=== PATIENT | female | born 1935 | race Caucasian/White ===

== ENCOUNTER → 2016-11-07 | Outpatient (CLI) | payer BC ==
[~2016-11-07] MED LIST: ACET-1256 PO; ADVIN10/60 INH; CALC500C70 PO; DMD20 PO; FLUO20CA35 PO; LISI5TAB3 PO; LORA-741 PO; MULT-513 PO; POTA20TA16 PO; PSYL55.43 PO; SIMV10TA2 PO
[2016-11-07 13:20] LABS: BLOOD UREA NITROGEN 23 mg/dl (7-18); GLUCOSE 133 mg/dl (70-99)
[2016-11-07 13:21] LABS: ALT/SGPT 22 U/L (12-78); AST/SGOT 18 U/L (15-37); BUN/CREATININE RATIO 13.6 (10-20); CALCIUM 9.2 mg/dl (8.5-10.1); CARBON DIOXIDE 30 mmol/L (21-32); CHLORIDE 103 mmol/L (98-107); CHOLESTEROL 174 mg/dl (0-200); CHOLESTEROL/HDL RATIO 2.1; HDL CHOLESTEROL 81 mg/dl; POTASSIUM 3.7 mmol/L (3.5-5.1); SODIUM 142 mmol/L (136-145)
[2016-11-07 13:25] LABS: ALB/GLOB RATIO 1.1 (0.9-2); ALKALINE PHOSPHATASE 95 U/L (45-117); TRIGLYCERIDES 159 mg/dl (0-150); VERY LOW DENSITY LIPOPROT CALC 32 mg/dl
[2016-11-07 13:48] LABS: ESTIMATED AVERAGE GLUCOSE 148 mg/dl; HA1C FLAG Normal (Normal)
== END | disposition home or self-care (01) ==
LOC: C.LABSPEC 12:20
PROVIDERS: ATTEND Internal Medicine
DX: Z00.00 Encounter for general adult medical examination without abnormal findings (principal); E11.22 Type 2 diabetes mellitus with diabetic chronic kidney disease; I12.9 Hypertensive chronic kidney disease with stage 1 through stage 4 chronic kidney disease, or unspecified chronic kidney disease; N18.4 Chronic kidney disease, stage 4 (severe); E78.5 Hyperlipidemia, unspecified

== ENCOUNTER → 2016-12-22 | Outpatient (CLI) | payer BC ==
[2016-12-22 15:45] LABS: BLOOD UREA NITROGEN 23 mg/dl (7-18); BUN/CREATININE RATIO 14.5 (10-20); CALCIUM 9.8 mg/dl (8.5-10.1); CARBON DIOXIDE 31 mmol/L (21-32); CHLORIDE 100 mmol/L (98-107); GLUCOSE 140 mg/dl (70-99); POTASSIUM 3.8 mmol/L (3.5-5.1); SODIUM 139 mmol/L (136-145)
== END | disposition home or self-care (01) ==
LOC: C.LABSPEC 15:10
PROVIDERS: ATTEND Internal Medicine
DX: N18.9 Chronic kidney disease, unspecified (principal)

== ENCOUNTER → 2017-04-27 | Outpatient (CLI) | payer BC ==
[2017-04-27 15:11] LABS: BASO % 0.5 %; BASO ABS # 0.03 K/uL (0-0.2); COMPLETE YES; EOS % 7.2 %; HEMATOCRIT 40.2 % (37-47); LYMPH % 21.4 %; LYMPH ABS # 1.25 K/uL (1.2-3.4); MEAN CELL VOLUME 91.6 fL (80-100); MEAN CORPUSCULAR HEMOGLOBIN 30.1 pg (25-34); MEAN CORPUSCULAR HGB CONC 32.8 g/dl (32-36); MEAN PLATELET VOLUME 9.4 fL (7.4-10.4); MONO % 10.8 %; NEUT % 60.1 %; PLATELET COUNT 213 K/uL (130-400); RED BLOOD COUNT 4.39 M/uL (4.2-5.4); WHITE BLOOD COUNT 5.84 K/uL (4.8-10.8)
[2017-04-27 15:19] LABS: ALT/SGPT 20 U/L (12-78); AST/SGOT 21 U/L (15-37); BLOOD UREA NITROGEN 21 mg/dl (7-18); BUN/CREATININE RATIO 14.1 (10-20); CALCIUM 9.5 mg/dl (8.5-10.1); CARBON DIOXIDE 30 mmol/L (21-32); CHLORIDE 103 mmol/L (98-107); CHOLESTEROL 162 mg/dl (0-200); GLUCOSE 137 mg/dl (70-99); POTASSIUM 3.9 mmol/L (3.5-5.1); SODIUM 139 mmol/L (136-145); TRIGLYCERIDES 136 mg/dl (0-150); VERY LOW DENSITY LIPOPROT CALC 27 mg/dl
[2017-04-27 15:22] LABS: ALB/GLOB RATIO 0.9 (0.9-2); ALKALINE PHOSPHATASE 91 U/L (45-117); CHOLESTEROL/HDL RATIO 2.5; HDL CHOLESTEROL 64 mg/dl
[2017-04-28 06:22] LABS: ESTIMATED AVERAGE GLUCOSE 148 mg/dl; HA1C FLAG Normal (Normal)
== END | disposition home or self-care (01) ==
LOC: C.LABSPEC 11:00
PROVIDERS: ATTEND Internal Medicine
DX: E11.9 Type 2 diabetes mellitus without complications (principal); I10 Essential (primary) hypertension; E78.5 Hyperlipidemia, unspecified

== ENCOUNTER → 2017-05-02 | Outpatient (CLI) | payer BC | END | disposition home or self-care (01) | LOC: C.LABSPEC 15:15 | PROVIDERS: ATTEND Internal Medicine | DX: Z12.11 Encounter for screening for malignant neoplasm of colon (principal) ==

== ENCOUNTER → 2017-06-06 | Outpatient (CLI) | payer BC ==
--- NOTE | 2017-06-07 07:57 | MAMMOGRAPHY REPORT ---
BILATERAL DIGITAL SCREENING MAMMOGRAM TOMOSYNTHESIS WITH CAD: 06/06/2017 CLINICAL HISTORY: Routine screening. Patient has no complaints. TECHNIQUE: Breast tomosynthesis in addition to standard 2D mammography was performed. Current study was also evaluated with a Computer Aided Detection (CAD) system. COMPARISON: Comparison is made to exams dated: 06/01/2016 mammogram, 02/11/2014 mammogram, 02/03/2014 m ammogram, 01/28/2013 mammogram, 01/23/2012 mammogram, and 12/16/2010 mammogram - [facility]. BREAST COMPOSITION: The tissue of both breasts is heterogeneously dense, which may obscure small mas ses. FINDINGS: There is a stable circumscribed 12 mm mass in the anterior right breast, previously docume nted to represent a simple cyst on ultrasound. A second stable oval mass is seen in the 6:00 posteri or right breast. There are diffuse bilateral benign rim and round microcalcifications. Mild vascula r calcifications in both breasts. No new suspicious mass, architectural distortion or cluster of consuelo rocalcifications is seen. IMPRESSION: ACR BI-RADS CATEGORY 1: NEGATIVE There is no mammographic evidence of malignancy. A 1 year screening mammogram is recommended. The pa tient will receive written notification of the results. Approximately 10% of breast cancers are not detected with mammography. A negative mammographic report should not delay biopsy if a clinically suggestive mass is present. Bety Dixon M.D. ay/:06/06/2017 15:55:48 Systems Engineering Manager: Leonie CHAVARRIA(R)(M), [facility] letter sent: Normal 1/2 BI-RADS Code: ACR BI-RADS Category 1: Negative
== END | disposition home or self-care (01) ==
LOC: C.MAMM 09:53
PROVIDERS: ATTEND Internal Medicine
DX: Z12.31 Encounter for screening mammogram for malignant neoplasm of breast (principal)

== ENCOUNTER 2017-10-25 13:43 | Observation (INO) | payer BC ==
[~2017-10-25] VITALS: Ht 160 cm; Wt 74.6 kg
[2017-10-25] MEDS ORDERED: XYLOCAINE 1%/SOD BICARB 20 ML VIAL INFIL ONE (14:30)
[2017-10-25] MEDS ORDERED: DMD20 PO (14:40)
[2017-10-25] MEDS ORDERED: ADVIN50/60 INH (14:40)
[2017-10-25] MEDS ORDERED: SIMV-151 PO (14:40)
[2017-10-25] MEDS ORDERED: POTA20TA13 PO (14:40)
[2017-10-25] MEDS ORDERED: LISI-729 PO (14:40)
[2017-10-25] MEDS ORDERED: IPRA1AER2 INH (14:40)
[2017-10-25] MEDS ORDERED: CZR25 PO (14:40)
[2017-10-25 15:08] LABS: BASO % 0.2 %; BASO ABS # 0.03 K/uL (0-0.2); EOS % 0.8 %; EOS ABS # 0.13 K/uL (0-0.5); HEMATOCRIT 41.5 % (37-47); HEMOGLOBIN 13.8 g/dL (12.0-16.0); IG# 0.03 K/uL (0.00-0.02); LYMPH % 7.3 %; LYMPH ABS # 1.17 K/uL (1.2-3.4); MEAN CELL VOLUME 94.1 fL (80-100); MEAN CORPUSCULAR HEMOGLOBIN 31.3 pg (25-34); MEAN CORPUSCULAR HGB CONC 33.3 g/dl (32-36); MEAN PLATELET VOLUME 9.4 fL (7.4-10.4); NEUT % 86.5 %; NEUT ABS # 13.85 K/uL (1.4-6.5); PLATELET COUNT 206 K/uL (130-400); RED CELL DISTRIBUTION WIDTH CV 12.6 % (11.5-14.5); RED CELL DISTRIBUTION WIDTH SD 43.6 fL (36.4-46.3); WHITE BLOOD COUNT 16.01 K/uL (4.8-10.8)
[2017-10-25 15:28] LABS: ALBUMIN 3.8 gm/dl (3.4-5.0); CALCIUM 9.7 mg/dl (8.5-10.1); CREATININE 1.48 mg/dl (0.60-1.20)
--- NOTE | 2017-10-25 15:30 | DIAGNOSTIC IMAGING REPORT ---
CT HEAD WITHOUT CONTRAST (CT) CLINICAL HISTORY: Head trauma. Posttraumatic amnesia. COMPARISON STUDY: 05/08/2015 TECHNIQUE: Axial CT of the brain is performed from the vertex to the skull base. IV contrast was not administered for this examination. A dose lowering technique was utilized adhering to the principles of ALARA. CT DOSE: 978.44 mGycm FINDINGS: No intra or extra-axial mass lesions are visualized. There is no CT evidence of acute cortical infarction. There is no evidence of midline shift. There is no acute hemorrhage. No calvarial fractures are visualized. There are moderate white matter hypodensities likely on a small vessel basis. There is no evidence of pathologic ventricular dilatation. There is no evidence of acute sinusitis. There is a left parietal vertex scalp laceration. IMPRESSION: No acute intracranial findings Electronically signed by: Nahun Arreola M.D. 10/25/2017 3:29 PM Dictated Date/Time: 10/25/2017 3:28 PM
--- NOTE | 2017-10-25 15:33 | DIAGNOSTIC IMAGING REPORT ---
CT OF THE CERVICAL SPINE CLINICAL HISTORY: Neck pain status post trauma COMPARISON STUDY: No previous studies for comparison. CT DOSE: 422.46 mGycm TECHNIQUE: CT scan of the cervical spine was performed from the skull base to the thoracic inlet. Images are reviewed in the axial, sagittal, and coronal planes. IV contrast was not administered for this examination. A dose lowering technique was utilized adhering to the principles of ALARA. FINDINGS: The visualized portions of the lung apices reveal no evidence of pneumothorax. There is apical emphysema The prevertebral soft tissues are normal. No fractures or subluxations are visualized. There are advanced multilevel degenerative changes. Slight widening of the C2-3 disc, likely is developmental. IMPRESSION: 1. Slight widening of the C2-3 disc, a finding which is likely developmental 2. Advanced multilevel degenerative change 3. No acute fractures or traumatic subluxations are visualized Electronically signed by: Nahun Arreola M.D. 10/25/2017 3:32 PM Dictated Date/Time: 10/25/2017 3:29 PM
[2017-10-25 15:36] LABS: TOTAL PROTEIN 7.9 gm/dl (6.4-8.2)
--- NOTE | 2017-10-25 16:00 | DIAGNOSTIC IMAGING REPORT ---
R HIP UNILATERAL 2 VIEWS HISTORY: 82 years-old Female fall acute right hip pain status post fall COMPARISON: Pelvis radiograph 03/11/2013 TECHNIQUE: 2 views of the right hip FINDINGS: Right hip arthroplasty noted without evidence of hardware complication or malalignment. No acute fracture or subluxation. The imaged right hemipelvis appears intact. Degenerative changes are seen within the right SI joint and pubic symphysis. Soft tissues are unremarkable. IMPRESSION: 1. No acute fracture or subluxation. 2. Right hip arthroplasty noted without evidence of hardware complication. The above report was generated using voice recognition software. It may contain grammatical, syntax or spelling errors. Electronically signed by: Farooq Story M.D. 10/25/2017 3:59 PM Dictated Date/Time: 10/25/2017 3:58 PM
--- NOTE | 2017-10-25 16:02 | DIAGNOSTIC IMAGING REPORT ---
R WRIST MIN 3 VIEWS ROUTINE HISTORY: 82 years-old Female fall acute right wrist pain status post fall. Associated laceration. COMPARISON: None available TECHNIQUE: 4 views of the right wrist FINDINGS: The bones appear mildly demineralized. Severe first carpometacarpal osteoarthritis. Mild radiocarpal and triscaphe osteoarthritis. No acute fracture or subluxation. No opaque foreign body. Distal radius and ulna appear intact. IMPRESSION: 1. Degenerative changes about the wrist as above without acute fracture or subluxation. 2. Mildly demineralized appearance of the bones. The above report was generated using voice recognition software. It may contain grammatical, syntax or spelling errors. Electronically signed by: Farooq Story M.D. 10/25/2017 4:01 PM Dictated Date/Time: 10/25/2017 3:59 PM
--- NOTE | 2017-10-25 17:38 | EMERGENCY ROOM VISIT NOTE ---
ED Visit Note First contact with patient: 13:49 Chief Complaint: Head injury. History of Present Illness: Ms. Mcguire is an 82-year-old white female who ambulates into the ED accompanied by her son complaining of a laceration and possible head injury. Patient reports approximately one hour ago she was going down the stairs at her home using a chair left. Patient reports approximately snf down the stairs she reports somehow she fell out of the chair, down the stairs and landed on a wooden floor. She reports she has no recollection of the events. She reports she only remembers waking up on the floor. She reports she is unsure show a loss of consciousness but once again reports she does not remember when the event occurred. Currently she is complaining of a laceration on the occipital scalp and posterior right hand and some mild tenderness in the right hip. She does not describe these pains or rates her discomfort. She has not identified any aggravating or alleviating factors related to the symptoms. She has not taken any medications for the symptoms prior to arrival at the hospital. She denies any associated symptoms including headache, dizziness, lightheadedness, visual changes, hearing changes, difficulty speaking, difficulty swallowing, difficulty ambulating/coordinating body movements, neck pain, thoracic and lumbar back pain, chest pain, shortness of breath, abdominal pain, nausea, vomiting, upper extremity weakness/numbness/tingling. Review of Systems: As noted above in History of Present Illness; all body systems were reviewed the patient and found to be negative unless noted above otherwise. Past Medical History: Asthma, bronchitis, hypertension, unspecified hip surgeries. Current Medications: Medications Dose Route/Sig Max Daily Dose Days Date Category Zestril (Lisinopril) 5 Mg Tab 5 Mg PO DAILY 10/25/17 Reported Combivent Respimat (Ipratropium-Albuterol) 1 Aer Aer 1 Puff INH UD 10/25/17 Reported Torsemide 20 Mg Tab 1.5 Tab PO DAILY 10/25/17 Reported Potassium Chloride Er (Potassium Chloride Microencaps) 20 Meq Tab 1 Tab PO DAILY 10/25/17 Reported Losartan Potassium 25 Mg Tab 1 Tab PO DAILY 10/25/17 Reported Simvastatin 20 Mg Tab 1 Tab PO DAILY 10/25/17 Reported Advair Diskus 500/50 60 Dose (Fluticasone Prop/Salmeterol) 1 Ea Aerp 1 Puff INH BID 10/25/17 Reported Ativan (Lorazepam) 0.5 Mg Tab 0.5 Mg PO Q6H PRN 05/08/15 Reported Tylenol (Acetaminophen) 500 Mg Tab 500-1,000 Mg PO HS PRN 02/20/13 Reported Os-Efren 500 Plus D (Calcium/Vitamin D) Tab 1 Tab PO DAILY 02/20/13 Reported Mvi With Minerals (Multivitamins/Minerals) Tab 1 Tab PO DAILY 02/20/13 Reported Prozac (Fluoxetine HCl) 20 Mg Cap 20 Mg PO QAM 03/07/10 Reported Allergies to Medications: Patient denies. Social History: Patient is not employed; she lives by herself and feels safe in her home environment; she denies tobacco and alcohol use. Tetanus Immunization Status: Patient is unsure. Physical Examination: Vital Signs: Date Time Temp Pulse Resp B/P (MAP) Pulse Ox O2 Delivery O2 Flow Rate FiO2 10/25/17 16:20 36.2 82 16 163/98 97 Room Air 10/25/17 13:45 36.2 85 16 163/100 97 Room Air 10/25/17 13:45 17 GENERAL: 82-year-old female in mild distress due to symptoms, nontoxic-appearing , afebrile and hemodynamically stable. NEUROLOGICAL: Awake, alert and oriented to person, place and time. Answering questions appropriately and following commands. Normal gait. Good hand eye coordination. Cranial nerves II-12 grossly intact. Romberg test negative. Good hand eye coordination. No focal motor or sensory deficits. Normal rapid all movements of the hands and fingers. Long-term memory questionable short- term memory SKIN: Warm, dry and pink. Occipital Scalp: 4.6 cm full-thickness laceration with no active bleeding. Right Posterior Wrist: 3.2 cm crescent-shaped skin tear. No active bleeding. HEENT: Atraumatic and normocephalic. Soft tissue injury as noted above. Skull : No bony deformity, bony crepitus or ecchymosis. Mild tenderness in the area of her laceration. No raccoon's eyes or daly signs. No drainage in the ears of the nostril; no hemotympanum. Face: No bony tenderness, ecchymosis or bony crepitus. PERRLA. EOMI without nystagmus. Airway patent. Speech normal and clear. Trachea midline. No jugular venous distention. BACK: No tenderness over the bony cervical, thoracic and lumbar spine. Mild tenderness in the paraspinous muscles just left of the spine without palpable spasm. Full range of motion of the cervical spine. No CVA tenderness. THORAX: Lungs sounds are clear to auscultation and equal bilaterally with symmetrical chest wall. No crepitus, tenderness, subcutaneous air or deformities noted. HEART: Regular rate and rhythm. No gallops, rubs or murmurs are appreciated. ABDOMEN: Flat, soft and nontender. Positive bowel sounds in all quadrants. No guarding, rigidity or organomegaly. EXTREMITIES: Moves all extremities well on command and with purpose. All distal neurovascular statuses are intact and equal bilaterally. She has mild tenderness over her skin tear in the right upper extremity. I don't appreciate any bony deformity, bony crepitus, swelling or ecchymosis. She does have full range of motion against resistance in the wrist. No tenderness in the shoulders , upper arms, elbows, forearms, wrists or hands. Mild tenderness in the right hip over the greater trochanter area without bony deformity or crepitus. There is no shortening or malrotation. No tenderness throughout the thighs, knees, lower legs, ankles or feet. ED Course: Patient is assessed as noted above. Patient's medication list was reviewed. Laboratory Testing: Test 10/25/17 14:59 10/25/17 15:59 Range/Units White Blood Count 16.01 4.8-10.8 K/uL Red Blood Count 4.41 4.2-5.4 M/uL Hemoglobin 13.8 12.0-16.0 g/dL Hematocrit 41.5 37-47 % Mean Corpuscular Volume 94.1 80-100 fL Mean Corpuscular Hemoglobin 31.3 25-34 pg Mean Corpuscular Hemoglobin Concent 33.3 32-36 g/dl Platelet Count 206 130-400 K/uL Mean Platelet Volume 9.4 7.4-10.4 fL Neutrophils (%) (Auto) 86.5 % Lymphocytes (%) (Auto) 7.3 % Monocytes (%) (Auto) 5.0 % Eosinophils (%) (Auto) 0.8 % Basophils (%) (Auto) 0.2 % Neutrophils # (Auto) 13.85 1.4-6.5 K/uL Lymphocytes # (Auto) 1.17 1.2-3.4 K/uL Monocytes # (Auto) 0.80 0.11-0.59 K/uL Eosinophils # (Auto) 0.13 0-0.5 K/uL Basophils # (Auto) 0.03 0-0.2 K/uL RDW Standard Deviation 43.6 36.4-46.3 fL RDW Coefficient of Variation 12.6 11.5-14.5 % Immature Granulocyte % (Auto) 0.2 % Immature Granulocyte # (Auto) 0.03 0.00-0.02 K/uL Sodium Level 137 136-145 mmol/L Potassium Level 4.0 3.5-5.1 mmol/L Chloride Level 100 98-107 mmol/L Carbon Dioxide Level 32 21-32 mmol/L Anion Gap 5.0 3-11 mmol/L Blood Urea Nitrogen 23 7-18 mg/dl Creatinine 1.48 0.60-1.20 mg/dl Est Creatinine Clear Calc Drug Dose 27.1 ml/min Estimated GFR () 37.3 Estimated GFR (Non- 32.2 BUN/Creatinine Ratio 15.3 10-20 Random Glucose 150 70-99 mg/dl Calcium Level 9.7 8.5-10.1 mg/dl Total Bilirubin 0.5 0.2-1 mg/dl Direct Bilirubin 0.1 0-0.2 mg/dl Aspartate Amino Transf (AST/SGOT) 20 15-37 U/L Alanine Aminotransferase (ALT/SGPT) 22 12-78 U/L Alkaline Phosphatase 109 45-117 U/L Troponin I 0.052 0-0.045 ng/ml Total Protein 7.9 6.4-8.2 gm/dl Albumin 3.8 3.4-5.0 gm/dl Urine Color YELLOW Urine Appearance CLEAR CLEAR Urine pH 5.5 4.5-7.5 Urine Specific [place] 1.015 1.000-1.030 Urine Protein NEG NEG Urine Glucose (UA) NEG NEG Urine Ketones NEG NEG Urine Occult Blood NEG NEG Urine Nitrite NEG NEG Urine Bilirubin NEG NEG Urine Urobilinogen NEG NEG Urine Leukocyte Esterase MODERATE NEG Urine WBC (Auto) >30 0-5 /hpf Urine RBC (Auto) 0-4 0-4 /hpf Urine Hyaline Casts (Auto) 10-30 0-5 /lpf Urine Epithelial Cells (Auto) 10-20 0-5 /lpf Urine Bacteria (Auto) NEG NEG EKG: Was read by myself and reviewed with Dr. James; shows normal sinus rhythm with a ventricular rate of 63 bpm. Normal axis and intervals. No acute changes indicating ischemia, injury infarction. This was compared to a previous from 2015 in no acute changes were noted. Head CT: Was reviewed by myself and read by the radiologist showing no acute intracranial findings. Cervical Spine CT: Was reviewed by myself and read by the radiologist and shows slight widening of C2-C3 disc which likely is developmental. Advanced multilevel degenerative changes. No acute fractures or traumatic subluxations. Right Hip X-Rays: Were read by myself and the radiologist showing no acute fractures or subluxations. Right hip arthroplasty noted without evidence of hardware complication. Right Wrist X-Rays: Were read by myself and the radiologist showing no acute fractures or subluxations. Degenerative changes and minimal demineralization. Patient was offered pain medication and refused. Wound Repair: Occipital Scalp Laceration Complexity: Basic: Verbal consent was obtained after the risks and benefits were explained. The skin was prepped with betadine and a sterile field set. Wound edges of the wound was anesthetized with 5.2 ml buffered 1% lidocaine. The wound was explored for foreign bodies and none found. Copious irrigation was performed using sterile saline. With direct pressure the bleeding subsided. Debridement was not performed. The wound edges were approximated using 10 brian. Hemostasis and excellent approximation was achieved. No complications and the patient tolerated the procedure well. Right Wrist Skin Tear Complexity: Basic: Wound edges of the wound was anesthetized with 5.2 ml buffered 1% lidocaine. The wound was explored for foreign bodies and none found. With direct pressure the bleeding subsided. Debridement was not performed. The wound edges were approximated using Steri-Strips. Hemostasis and excellent approximation was achieved. No complications and the patient tolerated the procedure well. Patient was reassessed multiple times during her stay in the emergency department. Patient's case was reviewed with Dr. James; in apparently assessed the patient we agreed on diagnostic approach, treatment, disposition and plan. Patient's case was reviewed with the case finisher and hospitalist for observation/admission because of her elevated troponin. Patient and son were educated about today's findings. Clinical Impression: Fall. Elevated troponin. Amnestic to event. Closed head injury. Decision-Making: Initially my differential diagnosis I considered skull fracture , closed head injury, concussion, arrhythmia, hypoglycemia, urinary tract infection and other causes. Disposition and plan: Patient be brought in the hospital for observation/ admission by the hospitalist; please see their notes and orders for final disposition and plan.
[2017-10-25] MEDS ORDERED: LORAZEPAM 0.5 MG TAB PO PRN (17:45)
[2017-10-25] MEDS ORDERED: MAGNESIUM HYDROXIDE SUSP 30 ML UDC PO PRN (17:45)
[2017-10-25] MEDS ORDERED: ALUMINUM/MAGNESIUM/SIMETH (MAALOX MAX) 30 ML UDC PO PRN (17:45)
[2017-10-25] MEDS ORDERED: POLYETHYLENE (MIRALAX) 17 GM PACK PO PRN (17:45)
[2017-10-25] MEDS ORDERED: ONDANSETRON INJ 2 MG/ML 2 ML VIAL IV PRN (17:45)
--- NOTE | 2017-10-25 17:52 | History and Physical ---
History & Physical Date & Time of Service: Oct 25, 2017 at 17:44 Chief Complaint: Laceration From Fall Primary Care Physician: Chito Dunbar M.D. History of Present Illness Source: patient, family (Son) Ms. Mcguire is an 82 y/o female with PMHx of HTN, Asthma, and CKD Stage III who presents to the ED for syncope. Patient states she has noticed not feeling well over the past few days, mostly noting she just felt more fatigued than normal. Today, she was on her left chair going downstairs and sustained a fall resulting in right wrist pain and a laceration to the left side of her posterior head. Patient reports she does not remember even getting in her chair left. She reports only four stairs to travel on her lift chair. The only thing she can recall is laying on the stairs and feeling pain in her head, she placed her hand on her head and realized she was bleeding. She denies any previous episodes of syncope. She denies any known cardiac history or arrhythmia. She denies any focal neurological deficits. She does note chronic left shoulder limitations they have not changed after this fall. She states she has never noticed issues with dizziness when changing positions. She is on antihypertensives and a diuretic which she reports taking this a.m. She denies any recent medication changes. She takes her diuretic for lower extremity edema and denies any history of heart failure. On arrival to the ED, she had numerous imaging complete without acute findings. Cervical spine does show slight widening of C2-C3 which is deemed to be developmental. She had her head laceration stapled with 10 brian. Laceration is well approximated without active bleeding and all brian easily identified. She has presence of leukocytosis which may be possibly reactive. Her creatinine is elevated at 1.48 with baseline appearing to be 1.4-1.6. Troponin is mildly elevated at 0.052 which may be related to her CKD versus demand ischemia. EKG with NSR and no ischemic findings and she denies any chest pain or shortness of breath. Past Medical/Surgical History 1. Asthma 2. HTN 3. CKD Stage III Family History Cancer Diabetes mellitus Gallbladder disease Hypertension Social History Smoking Status: Former Smoker Drug Use: none Marital Status: Housing status: lives with family Occupational Status: retired Immunizations History of Influenza Vaccine: Yes History of Tetanus Vaccine?: No History of Pneumococcal: No History of Hepatitis B Vaccine: No Multi-Drug Resistant Organisms History of MDRO: No Allergies Coded Allergies: No Known Allergies (Unverified , 10/25/17) Home Medications Scheduled Calcium/Vitamin D (Os-Efren 500 Plus D), 1 TAB PO DAILY Fluoxetine (Prozac), 20 MG PO QAM Fluticasone Prop/Salmeterol (Advair Diskus 500/50 60 Dose), 1 PUFF INH BID Ipratropium-Albuterol (Combivent Respimat), 1 PUFF INH UD Losartan Potassium (Losartan Potassium), 1 TAB PO DAILY Multivitamins/Minerals (Mvi With Minerals), 1 TAB PO DAILY Potassium Chloride Microencaps (Potassium Chloride Er), 1 TAB PO DAILY Simvastatin (Simvastatin), 1 TAB PO DAILY Torsemide (Torsemide), 1.5 TAB PO DAILY Scheduled PRN Acetaminophen (Tylenol), 500-1,000 MG PO HS PRN for sleep/pain Lorazepam (Ativan), 0.5 MG PO Q6H PRN for anxiety Review of Systems Constitutional: + fatigue, + problem reported (Denies headache), No fever, No chills Eyes: No worsening of vision, No eye pain Respiratory: + cough (chronic - unchanged), + sputum (intermittent - chronic), No wheezing, No shortness of breath Cardiovascular: No chest pain, No orthopnea, No palpitations Abdomen: No pain, No nausea, No vomiting, No diarrhea, No constipation Musculoskeletal: + swelling (chronic - b/l lower extremities), No calf pain Genitourinary - Female: + dysuria (one episode approx 3 days ago - resolved), No urinary frequency, No hematuria Neurologic: No numbness/tingling Hematologic / Lymphatic: No abnormal bleeding/bruising Integumentary: No rash Physical Exam Vital Signs Date Time Temp Pulse Resp B/P (MAP) Pulse Ox O2 Delivery O2 Flow Rate FiO2 10/25/17 16:20 36.2 82 16 163/98 97 Room Air 10/25/17 13:45 36.2 85 16 163/100 97 Room Air 10/25/17 13:45 17 General Appearance: WD/WN, no apparent distress Head: normocephalic, + evidence of trama (full thickness laceration with 10 sutures; well approximated and brian well visualized; no active bleeding no obvious swelling/hematoma) Eyes: PERRL, EOMI, sclerae normal ENT: hearing grossly normal Neck: supple, no JVD, trachea midline Respiratory/Chest: lungs clear, normal breath sounds, no respiratory distress, no accessory muscle use Cardiovascular: regular rate, rhythm, no gallop, no murmur Abdomen/GI: normal bowel sounds, non tender, soft Extremities/Musculoskelatal: + swelling (nonpitting edema b/l legs - lymphedema appearance) Neurologic/Psych: alert, oriented x 3 Skin: normal color Diagnostics Laboratory Results Results Past 24 Hours Test 10/25/17 14:59 10/25/17 15:59 Range/Units White Blood Count 16.01 4.8-10.8 K/uL Red Blood Count 4.41 4.2-5.4 M/uL Hemoglobin 13.8 12.0-16.0 g/dL Hematocrit 41.5 37-47 % Mean Corpuscular Volume 94.1 80-100 fL Mean Corpuscular Hemoglobin 31.3 25-34 pg Mean Corpuscular Hemoglobin Concent 33.3 32-36 g/dl Platelet Count 206 130-400 K/uL Mean Platelet Volume 9.4 7.4-10.4 fL Neutrophils (%) (Auto) 86.5 % Lymphocytes (%) (Auto) 7.3 % Monocytes (%) (Auto) 5.0 % Eosinophils (%) (Auto) 0.8 % Basophils (%) (Auto) 0.2 % Neutrophils # (Auto) 13.85 1.4-6.5 K/uL Lymphocytes # (Auto) 1.17 1.2-3.4 K/uL Monocytes # (Auto) 0.80 0.11-0.59 K/uL Eosinophils # (Auto) 0.13 0-0.5 K/uL Basophils # (Auto) 0.03 0-0.2 K/uL RDW Standard Deviation 43.6 36.4-46.3 fL RDW Coefficient of Variation 12.6 11.5-14.5 % Immature Granulocyte % (Auto) 0.2 % Immature Granulocyte # (Auto) 0.03 0.00-0.02 K/uL Sodium Level 137 136-145 mmol/L Potassium Level 4.0 3.5-5.1 mmol/L Chloride Level 100 98-107 mmol/L Carbon Dioxide Level 32 21-32 mmol/L Anion Gap 5.0 3-11 mmol/L Blood Urea Nitrogen 23 7-18 mg/dl Creatinine 1.48 0.60-1.20 mg/dl Est Creatinine Clear Calc Drug Dose 27.1 ml/min Estimated GFR () 37.3 Estimated GFR (Non- 32.2 BUN/Creatinine Ratio 15.3 10-20 Random Glucose 150 70-99 mg/dl Calcium Level 9.7 8.5-10.1 mg/dl Total Bilirubin 0.5 0.2-1 mg/dl Direct Bilirubin 0.1 0-0.2 mg/dl Aspartate Amino Transf (AST/SGOT) 20 15-37 U/L Alanine Aminotransferase (ALT/SGPT) 22 12-78 U/L Alkaline Phosphatase 109 45-117 U/L Troponin I 0.052 0-0.045 ng/ml Total Protein 7.9 6.4-8.2 gm/dl Albumin 3.8 3.4-5.0 gm/dl Urine Color YELLOW Urine Appearance CLEAR CLEAR Urine pH 5.5 4.5-7.5 Urine Specific [place] 1.015 1.000-1.030 Urine Protein NEG NEG Urine Glucose (UA) NEG NEG Urine Ketones NEG NEG Urine Occult Blood NEG NEG Urine Nitrite NEG NEG Urine Bilirubin NEG NEG Urine Urobilinogen NEG NEG Urine Leukocyte Esterase MODERATE NEG Urine WBC (Auto) >30 0-5 /hpf Urine RBC (Auto) 0-4 0-4 /hpf Urine Hyaline Casts (Auto) 10-30 0-5 /lpf Urine Epithelial Cells (Auto) 10-20 0-5 /lpf Urine Bacteria (Auto) NEG NEG Diagnostic Radiology R WRIST MIN 3 VIEWS ROUTINE FINDINGS: The bones appear mildly demineralized. Severe first carpometacarpal osteoarthritis. Mild radiocarpal and triscaphe osteoarthritis. No acute fracture or subluxation. No opaque foreign body. Distal radius and ulna appear intact. IMPRESSION: 1. Degenerative changes about the wrist as above without acute fracture or subluxation. 2. Mildly demineralized appearance of the bones. CT OF THE CERVICAL SPINE FINDINGS: The visualized portions of the lung apices reveal no evidence of pneumothorax. There is apical emphysema The prevertebral soft tissues are normal. No fractures or subluxations are visualized. There are advanced multilevel degenerative changes. Slight widening of the C2-3 disc, likely is developmental. IMPRESSION: 1. Slight widening of the C2-3 disc, a finding which is likely developmental 2. Advanced multilevel degenerative change 3. No acute fractures or traumatic subluxations are visualized R HIP UNILATERAL 2 VIEWS FINDINGS: Right hip arthroplasty noted without evidence of hardware complication or malalignment. No acute fracture or subluxation. The imaged right hemipelvis appears intact. Degenerative changes are seen within the right SI joint and pubic symphysis. Soft tissues are unremarkable. IMPRESSION: 1. No acute fracture or subluxation. 2. Right hip arthroplasty noted without evidence of hardware complication. CT HEAD WITHOUT CONTRAST (CT) FINDINGS: No intra or extra-axial mass lesions are visualized. There is no CT evidence of acute cortical infarction. There is no evidence of midline shift. There is no acute hemorrhage. No calvarial fractures are visualized. There are moderate white matter hypodensities likely on a small vessel basis. There is no evidence of pathologic ventricular dilatation. There is no evidence of acute sinusitis. There is a left parietal vertex scalp laceration. IMPRESSION: No acute intracranial findings EKG Normal sinus rhythm Normal ECG When compared with ECG of 08-MAY-2015 10:54, No significant changes Confirmed by Heriberto Morillo ([id number]) on 10/25/2017 5:17:34 PM Impression Assessment and Plan Ms. Mcguire is an 82 y/o female with PMHx of HTN, Asthma, and CKD Stage III who presents to the ED for syncope. Syncope and Collapse: - Uncertain if she had syncope resulting in her fall versus a fall resulting in LOC. Patient does not even remember sitting in her lift chair - Differential includes arrhythmia, mechanical fall with LOC, vasovagal, dehydration, versus other etiology - Will gently hydrated with NSS at 75 mL/hour - will monitor fluid status and hold her diuretic - she states this is used for her lower extremity edema which appears to be largely lymphedema - Continue rhythm monitoring and trend cardiac enzymes - first troponin is mildly elevated which may be related to her CKD versus demand - no chest pain or shortness of breath and EKG largely unremarkable - Obtain echo and carotid ultrasound Head Laceration and R Wrist Abrasion: - 10 brian easily visualized to left posterior scalp with good approximation and no active bleeding; crescent-shaped skin tear of the right wrist with dressing in place that is C/D/I Asthma without Exacerbation: - Continue Combivent and Advair HTN and HLD: - Losartan 25 mg daily and simvastatin 20 g daily CKD Stage III: - Baseline appears to be 1.4-1.6 - continue to monitor and avoid nephrotoxic agents - However will continue her losartan as her creatinine is at baseline and she is hypertensive DVT Prophylaxis: SCDs Code Status: FULL RESUSCITATION Disposition: PT/OT evaluations I personally interviewed and examined the patient. I agree with history of present illness and physical exam mentioned above, I also performed my own history taking and examination. Past medical history and review of system has been obtained by myself I reviewed all pertinent labs and studies Reviewed current medications I discussed and formulated of the assessment and plan mentioned above. Please refer to the Summary mentioned below. 82 year old female with past medical history of chronic kidney disease stage III currently at baseline creatinine, asthma and hypertension presented to the ED with an episode of syncope. Patient does not remember how she past out she woke up and found herself at the bottom of the stairs Left was blood in her head. She required a couple of stitches, will CT scan head and cervical spine and x-ray hip and wrist were negative for any fracture. Patient will be admitted on telemetry to rule out any arrhythmia, will have 2-D echo ordered and carotid ultrasound. Also patient will have physical therapy and nutritional therapy. General Appearance: not in acute distress Eyes: normal Sclerae, extraocular muscle intact ENT: hearing grossly normal Neck: supple Respiratory/Chest: normal air entry especially bilateral ,no respiratory distress, no accessory muscle use Cardiovascular: regular rate, rhythm, no murmur Abdomen: non tender, soft, no masses Extremities: no edema Neurologic/Psychiatric: Awake alert oriented times place and person moves all extremities sensation intact cranial nerves II-12 appear to be intact Skin: normal color, warm/dry, no rash Maya Dale MD, [facility] hospitalist group Level of Care Telemetry Resuscitation Status FULL RESUSCITATION VTE Prophylaxis VTE Risk Assessment Done? Y/N: Yes Risk Level: Moderate Given or contraindicated: SCD's
[2017-10-25] MEDS ORDERED: IV FLUIDS COMPLETED PRN (19:45)
[2017-10-25] MEDS ORDERED: IPRATROPIUM BROMIDE/ALBUTEROL respimat INH INH PRN (21:00)
[2017-10-25] MEDS: FLUTICASONE/SALMETEROL (ADVAIR) 500/50 INH 14 PUFF INH SCH (21:00)
[2017-10-25] MEDS ORDERED: IPRATROPIUM BROMIDE/ALBUTEROL respimat INH INH SCH (21:00)
[2017-10-25] MEDS: SODIUM CHLORIDE 0.9% 1000ML 1,000 ML IV SCH (21:21)
[2017-10-25 22:26] VITALS: BP 182/68; PULSE 65; TEMP 37.3; O2SAT 95; Ht 160 cm; Wt 74.6 kg
[2017-10-26] VITALS (8 sets, daily range): BP systolic 129–194; BP diastolic 67–99; PULSE 62–84; TEMP 36.6–36.9; O2SAT 92–97
[2017-10-26 03:48] LABS: ALBUMIN 3.1 gm/dl (3.4-5.0); CALCIUM 8.9 mg/dl (8.5-10.1); CREATININE 1.35 mg/dl (0.60-1.20); POTASSIUM 3.7 mmol/L (3.5-5.1)
[2017-10-26 03:53] LABS: TOTAL PROTEIN 6.6 gm/dl (6.4-8.2)
[2017-10-26 07:54] LABS: BASO % 0.8 %; BASO ABS # 0.05 K/uL (0-0.2); EOS % 2.1 %; EOS ABS # 0.13 K/uL (0-0.5); HEMATOCRIT 37.1 % (37-47); HEMOGLOBIN 12.1 g/dL (12.0-16.0); IG# 0.01 K/uL (0.00-0.02); LYMPH % 26.8 %; LYMPH ABS # 1.69 K/uL (1.2-3.4); MEAN CORPUSCULAR HEMOGLOBIN 30.3 pg (25-34); MEAN CORPUSCULAR HGB CONC 32.6 g/dl (32-36); MEAN PLATELET VOLUME 9.3 fL (7.4-10.4); MONO ABS # 0.76 K/uL (0.11-0.59); NEUT % 58.1 %; NEUT ABS # 3.67 K/uL (1.4-6.5); PLATELET COUNT 199 K/uL (130-400); RED CELL DISTRIBUTION WIDTH CV 12.5 % (11.5-14.5); RED CELL DISTRIBUTION WIDTH SD 42.4 fL (36.4-46.3); WHITE BLOOD COUNT 6.31 K/uL (4.8-10.8)
--- NOTE | 2017-10-26 08:13 | DIAGNOSTIC IMAGING REPORT ---
CAROTID DOPPLER NECK ART HISTORY: Mental status change Syncope COMPARISON: None. TECHNIQUE: Real-time, grayscale, and color Doppler sonography of the carotid arteries was performed. Imaging reviewed in the transverse and longitudinal planes. All measurements were calculated based on NASCET criteria. FINDINGS: Antegrade flow is seen in the bilateral vertebral arteries. The brachial pressures are hemodynamically similar. Moderate plaque formation bilaterally The peak systolic velocity within the right ICA is 77. The right systolic ratio is 0.7. The peak systolic velocity within the left ICA is E3. The left systolic ratio is 1.0. IMPRESSION: No hemodynamically significant stenosis seen within the carotid arteries. Moderate plaque formation The above report was generated using voice recognition software. It may contain grammatical, syntax or spelling errors. Electronically signed by: Arben Aldana M.D. 10/26/2017 8:11 AM Dictated Date/Time: 10/26/2017 8:10 AM
[2017-10-26] MEDS: SIMVASTATIN 20 MG TAB PO SCH (08:54)
[2017-10-26] MEDS: POTASSIUM CHLORIDE 20 MEQ TABCR PO SCH (08:54)
[2017-10-26] MEDS: FLUOXETINE HCL 20 MG CAP PO SCH (08:55)
[2017-10-26] MEDS: CEROVITE ADV FORMULA TAB PO SCH (08:55)
[2017-10-26] MEDS: FLUTICASONE/SALMETEROL (ADVAIR) 500/50 INH 14 PUFF INH SCH ×2 (08:55→20:55)
[2017-10-26] MEDS: SODIUM CHLORIDE 0.9% 1000ML 1,000 ML IV SCH (08:57)
[2017-10-26] MEDS ORDERED: LOSARTAN POTASSIUM 25 MG TAB PO SCH (09:00)
--- NOTE | 2017-10-26 11:21 | ECHOCARDIOGRAM REPORT ---
*NOTICE TO RECEIVING DEMOCRAT AGENCY This information is strictly Confidential and protected under [place] law. [place] law prohibits you from making any further disclosure of this information unless further disclosure is expressly permitted by the written consent of the person to whom it pertains or is authorized by law. A general authorization for the release of medical or other information is not sufficient for this purpose. Hospital accepts no responsibility if the information is made available to any other person, INCLUDING THE PATIENT. Interpretation Summary * Name: GLENNA KELLEY Study Date: 10/26/2017 09:15 AM BP: 170/75 mmHg * Patient Location: 220 HR: 62 * : 1935 (M/d/yyyy) Gender: Female Height: 63 in * Age: 82 yrs Ethnicity: [place] Weight: 161 lb * Ordering Physician: Karin Smith * Referring Physician: Chito Dunbar * Performed By: Anna Washington RDCS * * Reason For Study: SYNCOPE * BSA: 1.8 m2 * -- Conclusions -- * 1. Normal LV size and wall thickness. * 2. Normal LV systolic function. LVEF 55-60%. No regional wall motion abnormalities. * 3. Normal RV size and function. * 4. Aortic valve sclerosis without stenosis. * 5. Mitral annular calcification with trace mitral regurgitation. * 6. Compared with prior resting images on study 05/29/2014: No significant changes. Procedure Details * A complete two-dimensional transthoracic echocardiogram was performed (2D, M-mode, Doppler and color flow Doppler). Left Ventricle * The left ventricle is grossly normal size. * There is normal left ventricular wall thickness. * Ejection Fraction = 55-60%. * No regional wall motion abnormalities noted. Right Ventricle * The right ventricle is grossly normal size. * The right ventricular systolic function is normal as assessed by tricuspid annular plane systolic excursion (TAPSE) (normal >1.5 cm). Atria * The left atrial size is normal. * Right atrial size is normal. * No ASD detected; PFO is not assessed. Mitral Valve * There is moderate mitral annular calcification. * The mitral valve leaflets appear thickened, but open well. * There is no mitral valve stenosis. * There is trace mitral regurgitation. Tricuspid Valve * The tricuspid valve is not well visualized. * There is trace tricuspid regurgitation. Aortic Valve * The aortic valve is not well visualized. * Aortic valve sclerosis moderate, without significant aortic valvular stenosis. * The aortic valve is trileaflet. * No hemodynamically significant valvular aortic stenosis. * There is no significant aortic regurgitation. Pulmonic Valve * The pulmonary valve is inadequately visualized, but the Doppler data is adequate for interpretation. * There is no significant pulmonary regurgitation. Great Vessels * Left sinus of valsalva with calcified atherosclerotic plaque. * The aortic root and proximal ascending aorta are normal sized. Pericardium/Pleural * There is no pericardial effusion. Great Vessels * Normal inferior vena cava size and collapsability with sniff indicates a normal right atrial pressure of 3 mmHg MMode 2D Measurements and Calculations LVAd ap4 21.6 cm\S\2 LVLd ap4 7.0 cm EDV(MOD-sp4) 56.1 ml EDV(sp4-el) 56.5 ml LVAs ap4 13.2 cm\S\2 LVLs ap4 5.6 cm ESV(MOD-sp4) 27.2 ml ESV(sp4-el) 26.3 ml EF(MOD-sp4) 51.6 % EF(sp4-el) 53.5 % LVAd ap2 16.1 cm\S\2 LVLd ap2 7.1 cm EDV(MOD-sp2) 30.1 ml EDV(sp2-el) 30.9 ml LVAs ap2 10.1 cm\S\2 LVLs ap2 6.5 cm ESV(MOD-sp2) 14.2 ml ESV(sp2-el) 13.4 ml EF(MOD-sp2) 52.6 % EF(sp2-el) 56.5 % LVLd %diff 1.3 % EDV(MOD-bp) 41.2 ml LVLs %diff 13.3 % ESV(MOD-bp) 20.7 ml EF(MOD-bp) 49.7 % SV(MOD-sp4) 29.0 ml SI(MOD-sp4) 16.4 ml/m\S\2 SV(MOD-sp2) 15.8 ml SI(MOD-sp2) 9.0 ml/m\S\2 SV(MOD-bp) 20.5 ml SI(MOD-bp) 11.6 ml/m\S\2 SV(sp4-el) 30.2 ml SI(sp4-el) 17.1 ml/m\S\2 SV(sp2-el) 17.5 ml SI(sp2-el) 9.9 ml/m\S\2 Doppler Measurements and Calculations MV E max [place] 84.1 cm/sec MV A max [place] 100.8 cm/sec MV E/A 0.83 MV dec time 0.31 sec Ao V2 max 153.0 cm/sec Ao max PG 9.4 mmHg Ao max PG (full) 5.0 mmHg LV V1 max PG 4.4 mmHg LV V1 max 104.6 cm/sec
--- NOTE | 2017-10-26 18:11 | Family Medicine Progress Note ---
Progress Note Date of Service Oct 26, 2017. History Pt seen and examined at bedside. No acute events since admission. Pt reports no memory of fall, just waking on the ground with a headache and bleeding. States that the event was preceeded by a few days of fatigue and feeling unwell with decreased appetite and oral intake. At present, she is resting comfortably and has been up to ambulate with assist with mild positional lightheadedness. She reports no CP/palpitations, nausea, vision/ hearing changes, paresthesias, focal weakness. Constitutional: denies: chills, fever, weakness Respiratory: negative: cough, short of breath, wheezing Cardiovascular: denies chest pain, denies palpitations, denies syncope Gastrointestinal/Abdominal: negative: abdominal pain, constipation, diarrhea, nausea Musculoskeletal: positive: joint pain, muscle stiffness, negative: neck pain General Appearance: WD/WN, no apparent distress Neck: non-tender, full range of motion, supple, other (no bruit) Respiratory: chest non-tender, lungs clear, normal breath sounds, no respiratory distress Cardiovascular: normal peripheral pulses, regular rate, rhythm, no edema, no murmur Gastrointestinal: normal bowel sounds, non tender, soft, no organomegaly Neurologic/Psychiatric: truck guard II-XII nml as tested, no motor/sensory deficits, alert, normal mood/affect, oriented x 3 Assessment/Plan 82 y/o female h/o CKD III, HTN, asthma presents with syncope w/ fall Syncope - no abnormalities on telemetry, EKG reviewed, echo completed, carotid US completed - tolerated gentle hydration with improvement of lightheadedness. Repeat orthostatics in AM. PT recs home w/ home health and PT HTN - elevated today - increase losartan to 50mg, d/c IVF Hyperlipidemia - continue simvastatin CKD III - baseline ~1.5 - repeat BMP in AM, gentle hydration Head laceration, wrist abrasion - pain well controlled at present, imaging reviewed Asthma - continue combivent, advair DVT Prophylaxis: SCDs Code Status: FULL RESUSCITATION
[2017-10-27] VITALS (9 sets, daily range): BP systolic 103–198; BP diastolic 64–95; PULSE 66–85; TEMP 36.2–36.9; O2SAT 94–97
[2017-10-27] MEDS ORDERED: HydrALAZINE 10 MG TAB PO ONE (00:30)
[2017-10-27 08:27] LABS: HEMATOCRIT 37.3 % (37-47); HEMOGLOBIN 12.3 g/dL (12.0-16.0); MEAN CELL VOLUME 93.3 fL (80-100); MEAN CORPUSCULAR HEMOGLOBIN 30.8 pg (25-34); MEAN PLATELET VOLUME 9.2 fL (7.4-10.4); PLATELET COUNT 186 K/uL (130-400); RED CELL DISTRIBUTION WIDTH CV 12.4 % (11.5-14.5); RED CELL DISTRIBUTION WIDTH SD 42.6 fL (36.4-46.3); WHITE BLOOD COUNT 6.05 K/uL (4.8-10.8)
[2017-10-27] MEDS: SIMVASTATIN 20 MG TAB PO SCH (09:00)
[2017-10-27] MEDS: CEROVITE ADV FORMULA TAB PO SCH (09:21)
[2017-10-27] MEDS: FLUOXETINE HCL 20 MG CAP PO SCH (09:22)
[2017-10-27] MEDS: FLUTICASONE/SALMETEROL (ADVAIR) 500/50 INH 14 PUFF INH SCH ×2 (09:23→20:25)
[2017-10-27] MEDS: POTASSIUM CHLORIDE 20 MEQ TABCR PO SCH (09:23)
[2017-10-27 09:25] LABS: CALCIUM 8.9 mg/dl (8.5-10.1); CREATININE 1.1 mg/dl (0.60-1.20); POTASSIUM 4.1 mmol/L (3.5-5.1)
[2017-10-27] MEDS: LOSARTAN POTASSIUM 50 MG TAB PO SCH (09:49)
--- NOTE | 2017-10-27 14:00 | Cardiology Consultation ---
Cardiology Consultation Date of Consultation: Oct 27, 2017. Requesting Physician: Gee Reason for Consultation: Syncope Pt evaluation today including: conversation w/ patient, physical exam, chart review, lab review, review of studies, review of inpatient medication list, conversation w/ attending History of Present Illness Patient is an 82-year-old woman without a known cardiac history who experienced an episode of syncope. The patient has a chair lift at home which allows her to go up and down her stairs. Yesterday she found herself on the floor with a head laceration while using her chair lift. She found her chair in the middle of the stairs and could not recall how it got there. She did not describe feeling poorly prior to the event or afterwards. She did have a small laceration and some discomfort in that regard. She denied dizziness or lightheadedness. She was not aware of any palpitations. She has not report shortness of breath or chest pain. He has not had any similar episodes in the past. She states she has very minor dizziness when standing rapidly from a sitting position. This resolves quickly and has not resulted in syncope. She generally is not aware of any palpitations or rapid heartbeats. Generally the patient is ambulatory. She has not perform vigorous exercise but is able to walk around the grocery store in the mall without limiting symptoms of dyspnea or chest discomfort. She claims to sleep well most evenings. She denies orthopnea or paroxysmal nocturnal dyspnea. Today she is feeling quite well and anxious to go home. She states she was tired this morning as they moved her room at 2 a.m.. She did report taking a nap this morning. Past Medical/Surgical History Asthma Hypertension Chronic renal insufficiency Past surgical history: None Family History Cancer Diabetes mellitus Gallbladder disease Hypertension Noncontributory given her advanced age Social History Smoking Status: Never Smoker History of Alcohol Use: No Currently lives independently Review of Systems Patient denies recent constitutional symptoms such as fevers or chills. No upper airway congestion. She states she has occasional swelling of lower extremities which waxes and wanes in severity. All Other Systems: Reviewed and Negative Allergies Coded Allergies: No Known Allergies (Unverified , 10/25/17) Medications Current Inpatient Medications Medications (Trade) Dose Ordered Sig/Jd Route Start Time Stop Time Status Last Admin Dose Admin Acetaminophen (Tylenol Tab) 650 mg Q4H PRN PO 10/25/17 17:45 11/24/17 17:44 Al Hydrox/Mg Hydrox/Simethicone (Maalox Max Susp) 15 ml Q4H PRN PO 10/25/17 17:45 11/24/17 17:44 Magnesium Hydroxide (Milk Of Magnesia Susp) 30 ml Q12H PRN PO 10/25/17 17:45 11/24/17 17:44 Ondansetron HCl (Zofran Inj) 4 mg Q6H PRN IV 10/25/17 17:45 11/24/17 17:44 Polyethylene (Miralax Powder Packet) 17 gm DAILY PRN PO 10/25/17 17:45 11/24/17 17:44 Fluoxetine HCl (Prozac Cap) 20 mg QAM PO 10/26/17 09:00 11/25/17 08:59 10/27/17 09:22 20 MG Salmeterol Xinafoate/ Fluticasone (Advair Diskus 500/50 Inh) 1 puff BID INH 10/25/17 21:00 11/24/17 20:59 10/27/17 09:23 1 PUFF Lorazepam (Ativan Tab) 0.5 mg Q6H PRN PO 10/25/17 17:45 11/24/17 17:44 Multivitamins/ Minerals (Multivitamin W/ Minerals Tab) 1 tab DAILY PO 10/26/17 09:00 11/25/17 08:59 10/27/17 09:21 1 TAB Potassium Chloride (Klor-Con Tab) 20 meq DAILY PO 10/26/17 09:00 11/25/17 08:59 10/27/17 09:23 20 MEQ Simvastatin (Zocor Tab) 20 mg DAILY PO 10/26/17 09:00 11/25/17 08:59 10/26/17 08:54 20 MG Albuterol/ Ipratropium (Combivent Respimat Inh) 1 puffs QID PRN INH 10/25/17 21:00 11/24/17 20:59 Miscellaneous (Iv Fluids Completed) 1 ea PRN PRN N/A 10/25/17 19:45 10/25/18 19:44 Losartan Potassium (coZAAR TAB) 50 mg DAILY PO 10/27/17 09:00 11/25/17 08:59 10/27/17 09:49 50 MG Physical Exam Vital Signs Past 12 Hours Date Time Temp Pulse Resp B/P (MAP) Pulse Ox O2 Delivery O2 Flow Rate FiO2 10/27/17 12:06 36.7 66 18 133/76 (95) 96 Room Air 10/27/17 10:15 36.7 70 18 135/76 (95) 95 Room Air 10/27/17 08:00 Room Air 10/27/17 07:48 36.5 67 18 148/77 (100) 95 Room Air 10/27/17 04:43 36.7 74 18 103/66 (78) 94 Room Air 10/27/17 04:00 Room Air 10/27/17 01:43 36.2 69 17 183/77 (112) 94 Room Air She is alert and oriented x3. Mood affect appear normal. She answered all questions appropriately. HEENT: Sclerae are anicteric. Pupils are equal and reactive to light and accommodation. Extraocular movements were intact. Neuro: Cranial nerves intact Neck: Examination of the submandibular region did not reveal any significant lymphadenopathy. Carotids are palpable bilaterally and free of bruits on auscultation. There was no evidence of jugular venous distention. The thyroid was not enlarged. Lungs: Lungs are clear to auscultation bilaterally. There are no rales wheezes or rhonchi. She has normal respiratory effort without use of accessory muscles. There is normal pulmonary excursion. Cardiac: The rhythm was regular. S1 and S2 were normal. There are no murmurs on examination. The PMI was not markedly displaced on palpation. Abdomen: The abdomen was soft and nontender. Extremities: Patient has bilateral radial pulses that are equal in intensity. There is no evidence cyanosis or clubbing. There was no evidence of significant peripheral edema bilaterally, just mild. Skin: There are no rashes noted on examination today. Data Laboratory Results: Last 24 Hours Test 10/27/17 08:07 White Blood Count 6.05 K/uL Red Blood Count 4.00 M/uL Hemoglobin 12.3 g/dL Hematocrit 37.3 % Mean Corpuscular Volume 93.3 fL Mean Corpuscular Hemoglobin 30.8 pg Mean Corpuscular Hemoglobin Concent 33.0 g/dl RDW Standard Deviation 42.6 fL RDW Coefficient of Variation 12.4 % Platelet Count 186 K/uL Mean Platelet Volume 9.2 fL Sodium Level 139 mmol/L Potassium Level 4.1 mmol/L Chloride Level 105 mmol/L Carbon Dioxide Level 29 mmol/L Anion Gap 5.0 mmol/L Blood Urea Nitrogen 21 mg/dl Creatinine 1.10 mg/dl Est Creatinine Clear Calc Drug Dose 36.2 ml/min Estimated GFR () 53.4 Estimated GFR (Non- 46.1 BUN/Creatinine Ratio 18.8 Random Glucose 122 mg/dl Calcium Level 8.9 mg/dl Imaging: Patient's CT scans of the neck and head which did not demonstrate any significant carotid disease or intracranial abnormality. There is no neck fracture. She had x-rays of her wrist and arm which did not demonstrate any fractures. EKG: Normal sinus rhythm with narrow QRS. Telemetry reviewed: Patient does have brief episodes of significant sinus arrhythmia and sinus bradycardia competing with a junctional rhythm. These episodes resulted heart rates in the 30s but her very transient lasting only a few seconds. They are followed by slightly more rapid sinus rhythm. No heart block. No significant pauses. Echocardiogram performed yesterday revealed preserved LV systolic function without significant valvular abnormalities Assessment & Plan 1. Syncope: The patient had syncope without any prodrome. There is a remote possibility that she simply fell out of her chair and had an element of retrograde amnesia. However, she did have some conduction abnormality on her telemetry this morning. She did suffer significant injury. I will assume that she did have a brief loss of consciousness likely related to an arrhythmia. 2. Sinus node dysfunction: Patient had some significant sinus node dysfunction while awake earlier this morning. Review of telemetry reveals significant slowing of her heart rate with occasional episodes of a competing junctional rhythm. She was not overtly symptomatic during these episodes. However, in the setting of syncope with injury I believe this is a class 2 indication for permanent pacing. I did discuss pacemakers with the patient today. I suggested she undergo pacemaker implantation on Monday if she is interested. I described the risks of not having a device implanted such as recurrence syncope and injury. I do not believe this is a life-threatening situation. She wishes to discuss this option with her family and may have further questions regarding implant or the device tomorrow.
--- NOTE | 2017-10-27 18:51 | Family Medicine Progress Note ---
Progress Note Date of Service Oct 27, 2017. History Pt seen and examined at bedside. No acute events overnight. Presently, pt reports mild orthostasis with standing which resolves spontaneously. Remote h/o BPPV which exacerbates infrequently and mildly with room spinning which feels differently than present complaint. Reports no SCHWARTZ, vision/hearing changes, paresthseias, n/v, palpitations. Of note, during review of the telemetry, noted bradycardia in the 30s with junctional escape rhythm which occurred during my conversation with the patient and was apparently asymptomatic at rest. Constitutional: denies: chills, fever, weakness Respiratory: negative: cough, short of breath, wheezing Cardiovascular: denies chest pain, denies palpitations, denies syncope Gastrointestinal/Abdominal: negative: abdominal pain, constipation, diarrhea, nausea General Appearance: WD/WN, no apparent distress Eye Exam: bilateral eye PERRL, bilateral eye EOMI Respiratory: chest non-tender, lungs clear, normal breath sounds, no respiratory distress Cardiovascular: normal peripheral pulses, regular rate, rhythm, no edema, no murmur Gastrointestinal: normal bowel sounds, non tender, soft, no organomegaly 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 Will remain in hospital until Monday, at which time will have procedure HTN - continue losartan to 50mg Hyperlipidemia - continue simvastatin CKD III - baseline ~1.5 Head laceration, wrist abrasion - pain well controlled at present, imaging reviewed Asthma - continue combivent, advair DVT Prophylaxis: SCDs Code Status: FULL RESUSCITATION
[2017-10-28] VITALS (10 sets, daily range): BP systolic 135–195; BP diastolic 55–91; PULSE 66–87; TEMP 36.4–37.7; O2SAT 92–100
[2017-10-28] MEDS ORDERED: HydrALAZINE HCL 20 MG/ML VIAL IV. PRN (05:15)
[2017-10-28 07:15] LABS: HEMATOCRIT 34.3 % (37-47); HEMOGLOBIN 11.4 g/dL (12.0-16.0); MEAN CORPUSCULAR HEMOGLOBIN 30.9 pg (25-34); MEAN CORPUSCULAR HGB CONC 33.2 g/dl (32-36); MEAN PLATELET VOLUME 9.2 fL (7.4-10.4); PLATELET COUNT 189 K/uL (130-400); RED CELL DISTRIBUTION WIDTH CV 12.5 % (11.5-14.5); RED CELL DISTRIBUTION WIDTH SD 42.7 fL (36.4-46.3); WHITE BLOOD COUNT 6.93 K/uL (4.8-10.8)
[2017-10-28 07:44] LABS: CALCIUM 9.2 mg/dl (8.5-10.1); CREATININE 1.08 mg/dl (0.60-1.20); POTASSIUM 4.2 mmol/L (3.5-5.1)
[2017-10-28] MEDS: FLUOXETINE HCL 20 MG CAP PO SCH (07:47)
[2017-10-28] MEDS: LOSARTAN POTASSIUM 50 MG TAB PO SCH (07:47)
[2017-10-28] MEDS: CEROVITE ADV FORMULA TAB PO SCH (07:47)
[2017-10-28] MEDS: SIMVASTATIN 20 MG TAB PO SCH (07:47)
[2017-10-28] MEDS: FLUTICASONE/SALMETEROL (ADVAIR) 500/50 INH 14 PUFF INH SCH ×2 (07:47→20:37)
[2017-10-28] MEDS: POTASSIUM CHLORIDE 20 MEQ TABCR PO SCH (07:48)
[2017-10-28] MEDS ORDERED: AMLODIPINE BESYLATE 5 MG TAB PO ONE (18:45)
[2017-10-28] MEDS: ACETAMINOPHEN 325 MG TAB PO PRN (19:28)
[2017-10-29 04:54] VITALS: BP 132/76; PULSE 103; TEMP 36.8; O2SAT 90; O2SAT 98
[2017-10-29 07:25] VITALS: BP_SYST 160; BP_SYST 163; BP_SYST 167; BP_DIAS 65; BP_DIAS 75; BP_DIAS 81; PULSE 71; PULSE 88; TEMP 36.9; O2SAT 96
[2017-10-29] MEDS: CEROVITE ADV FORMULA TAB PO SCH (07:38)
[2017-10-29] MEDS: FLUTICASONE/SALMETEROL (ADVAIR) 500/50 INH 14 PUFF INH SCH ×2 (07:38→20:41)
[2017-10-29] MEDS: AMLODIPINE BESYLATE 5 MG TAB PO SCH (07:38)
[2017-10-29] MEDS: LOSARTAN POTASSIUM 50 MG TAB PO SCH (07:39)
[2017-10-29] MEDS: SIMVASTATIN 20 MG TAB PO SCH (07:39)
[2017-10-29] MEDS: POTASSIUM CHLORIDE 20 MEQ TABCR PO SCH (07:39)
[2017-10-29] MEDS: FLUOXETINE HCL 20 MG CAP PO SCH (07:39)
--- NOTE | 2017-10-29 07:44 | Family Medicine Progress Note ---
Progress Note Date of Service Oct 29, 2017. Medications Current Inpatient Medications Medications (Trade) Dose Ordered Sig/Jd Route Start Time Stop Time Status Last Admin Dose Admin Acetaminophen (Tylenol Tab) 650 mg Q4H PRN PO 10/25/17 17:45 11/24/17 17:44 10/28/17 19:28 650 MG Al Hydrox/Mg Hydrox/Simethicone (Maalox Max Susp) 15 ml Q4H PRN PO 10/25/17 17:45 11/24/17 17:44 Magnesium Hydroxide (Milk Of Magnesia Susp) 30 ml Q12H PRN PO 10/25/17 17:45 11/24/17 17:44 Ondansetron HCl (Zofran Inj) 4 mg Q6H PRN IV 10/25/17 17:45 11/24/17 17:44 Polyethylene (Miralax Powder Packet) 17 gm DAILY PRN PO 10/25/17 17:45 11/24/17 17:44 Fluoxetine HCl (Prozac Cap) 20 mg QAM PO 10/26/17 09:00 11/25/17 08:59 10/29/17 07:39 20 MG Salmeterol Xinafoate/ Fluticasone (Advair Diskus 500/50 Inh) 1 puff BID INH 10/25/17 21:00 11/24/17 20:59 10/29/17 07:38 1 PUFF Lorazepam (Ativan Tab) 0.5 mg Q6H PRN PO 10/25/17 17:45 11/24/17 17:44 Multivitamins/ Minerals (Multivitamin W/ Minerals Tab) 1 tab DAILY PO 10/26/17 09:00 11/25/17 08:59 10/29/17 07:38 1 TAB Potassium Chloride (Klor-Con Tab) 20 meq DAILY PO 10/26/17 09:00 11/25/17 08:59 10/29/17 07:39 20 MEQ Simvastatin (Zocor Tab) 20 mg DAILY PO 10/26/17 09:00 11/25/17 08:59 10/29/17 07:39 20 MG Albuterol/ Ipratropium (Combivent Respimat Inh) 1 puffs QID PRN INH 10/25/17 21:00 11/24/17 20:59 Miscellaneous (Iv Fluids Completed) 1 ea PRN PRN N/A 10/25/17 19:45 10/25/18 19:44 Hydralazine HCl (HydrALAZINE INJ) 10 mg Q6 PRN IV. 10/28/17 05:15 11/27/17 05:14 10/28/17 17:40 10 MG Losartan Potassium (coZAAR TAB) 100 mg DAILY PO 10/29/17 09:00 11/25/17 08:59 10/29/17 07:39 100 MG Amlodipine Besylate (Norvasc Tab) 5 mg QAM PO 10/29/17 09:00 11/28/17 08:59 10/29/17 07:38 5 MG Objective Vital Signs Date Time Temp Pulse Resp B/P (MAP) Pulse Ox O2 Delivery O2 Flow Rate FiO2 10/29/17 07:25 36.9 71 16 163/65 (97) 96 Room Air 71 167/75 (105) 88 160/81 (107) 10/29/17 04:54 36.8 103 18 132/76 (94) 98 Room Air 10/29/17 04:00 Room Air 10/29/17 00:00 Room Air 10/28/17 23:50 36.4 77 18 160/71 (100) 94 Room Air 10/28/17 20:00 Room Air 10/28/17 19:52 37.7 85 17 135/55 (81) 99 Room Air 10/28/17 18:13 66 152/69 (96) 10/28/17 17:35 87 181/81 (114) 10/28/17 16:00 Room Air 10/28/17 15:11 36.8 77 16 182/76 (111) 92 Room Air 10/28/17 12:00 Room Air 10/28/17 11:34 36.9 69 16 184/91 (122) 100 Room Air 10/28/17 08:00 Room Air Assessment and Plan DRAFT PLAN Awaiting pacemaker tomorrow Ankle XR to assess for fracture given fall with medial malleolus tenderness on examination and painful to walk History Resident Physician Supervision Note: I was present with Dr. Frazier during the history and exam. I discussed the case with the resident and agree with the findings and plan as documented in the note. Any exceptions or clarifications are listed here. Pt resting comfortably in a chair - complains of mild right medial ankle pain s/ p fall which worsens with ambulation but has not disturbed her gait. reports no CP/SOB, palpitations, n/v, SCHWARTZ. General Appearance: no apparent distress Respiratory: chest non-tender, lungs clear, normal breath sounds, no respiratory distress Cardiovascular: normal peripheral pulses, regular rate, rhythm, no edema, no murmur Extremities: normal range of motion, no pedal edema, other (TTP of the medial malleolus worsening with eversion) Neurologic/Psychiatric: no motor/sensory deficits Assessment/Plan 82 y/o female h/o CKD III, HTN, asthma presents with syncope w/ fall Syncope w/ intermittent bradycardia and junctional rhythm - cardiology consulted , recommendations appreciated - d/w patient re: class 2 indication for pacemaker placement and pt is amenable. Will remain in hospital until Monday, at which time will have procedure HTN - continue losartan, amlodipine. Hydralazine PRN Right ankle pain - likely sprain s/p fall, XR w/o fx - conservative mgmt. T/C stirrup splint if needed for ambulation after discharge Hyperlipidemia - continue simvastatin CKD III - baseline ~1.5 Head laceration, wrist abrasion - pain well controlled at present, imaging reviewed Asthma - continue combivent, advair DVT Prophylaxis: SCDs Code Status: FULL RESUSCITATION
--- NOTE | 2017-10-29 08:06 | DIAGNOSTIC IMAGING REPORT ---
L ANKLE MIN 3 VIEWS ROUTINE CLINICAL HISTORY: Left medial malleolus pain status post fall. COMPARISON: None FINDINGS: Alignment of the left ankle is anatomic. No acute fracture is identified. Talar dome is intact. There is minimal posterior calcaneal spurring. IMPRESSION: No acute fracture or dislocation of the left ankle. Electronically signed by: Sedrick Villa M.D. 10/29/2017 8:05 AM Dictated Date/Time: 10/29/2017 8:04 AM
--- NOTE | 2017-10-29 08:30 | Family Medicine Progress Note ---
Progress Note Date of Service Oct 28, 2017. History Pt seen and examined at bedside. Without episodic lightheadedness today. Reports no cehst pain, palpitations, nausea, diaphoresis, SCHWARTZ. Constitutional: denies: chills, fever, weakness Cardiovascular: denies chest pain, denies palpitations, denies syncope Gastrointestinal/Abdominal: negative: abdominal pain, constipation, diarrhea, nausea General Appearance: WD/WN, no apparent distress Neck: non-tender, full range of motion, supple Respiratory: chest non-tender, lungs clear, normal breath sounds, no respiratory distress Cardiovascular: normal peripheral pulses, regular rate, rhythm, no edema, no murmur Assessment/Plan 82 y/o female h/o CKD III, HTN, asthma presents with syncope w/ fall Syncope w/ intermittent bradycardia and junctional rhythm - cardiology consulted , recommendations appreciated - d/w patient re: class 2 indication for pacemaker placement and pt is amenable. Will remain in hospital until Monday, at which time will have procedure HTN - continue losartan, add amlodipine. Hydralazine PRN Hyperlipidemia - continue simvastatin CKD III - baseline ~1.5 Head laceration, wrist abrasion - pain well controlled at present, imaging reviewed Asthma - continue combivent, advair DVT Prophylaxis: SCDs Code Status: FULL RESUSCITATION
[2017-10-29 11:38] VITALS: BP 154/76; PULSE 75; TEMP 37; O2SAT 93
--- NOTE | 2017-10-29 12:15 | Cardiology Follow-Up ---
Subjective Date of Service: Oct 29, 2017. Pt evaluation today including: conversation w/ patient, physical exam, lab review, review of studies, review of inpatient medication list History of Present Illness Patient feels well today, she has had no further cardiovascular symptoms. No palpitations or lightheadedness here. Social History Smoking Status: Never Smoker History of Alcohol Use: No Review of Systems Respiratory: No shortness of breath Cardiac: No chest pain Patient denies recent constitutional symptoms such as fevers or chills. No upper airway congestion. She states she has occasional swelling of lower extremities which waxes and wanes in severity. Medications Cardiovascular: Item Value Date Time Losartan Potassium 100 mg 10/29/17 0900 (coZAAR TAB) DAILY/PO 10/29/17 0739 Amlodipine 5 mg 10/29/17 0900 Besylate QAM/PO 10/29/17 0738 (Norvasc Tab) Hydralazine HCl 10 mg 10/28/17 0515 (HydrALAZINE INJ) Q6 PRN/IV. 10/28/17 1740 Potassium Chloride 20 meq 10/26/17 0900 (Klor-Con Tab) DAILY/PO 10/29/17 0739 Simvastatin 20 mg 10/26/17 0900 (Zocor Tab) DAILY/PO 10/29/17 0739 Objective Vital Signs Past 12 Hours Date Time Temp Pulse Resp B/P (MAP) Pulse Ox O2 Delivery O2 Flow Rate FiO2 10/29/17 11:38 37.0 75 16 154/76 (102) 93 Room Air 10/29/17 08:00 Room Air 10/29/17 07:25 36.9 71 16 163/65 (97) 96 Room Air 71 167/75 (105) 88 160/81 (107) 10/29/17 04:54 36.8 103 18 132/76 (94) 98 Room Air 10/29/17 04:00 Room Air Last Recorded Weight-Kilograms: 74.600 Physical Exam Constitutional: Level of Distress: NAD Lungs: Auscultation: breath sounds normal Cardiovascular: Heart Auscultation: RRR, no murmurs Extremities: no edema She is alert and oriented x3. Mood affect appear normal. She answered all questions appropriately. HEENT: Sclerae are anicteric. Pupils are equal and reactive to light and accommodation. Extraocular movements were intact. Neuro: Cranial nerves intact Neck: Examination of the submandibular region did not reveal any significant lymphadenopathy. Carotids are palpable bilaterally and free of bruits on auscultation. There was no evidence of jugular venous distention. The thyroid was not enlarged. Lungs: Lungs are clear to auscultation bilaterally. There are no rales wheezes or rhonchi. She has normal respiratory effort without use of accessory muscles. There is normal pulmonary excursion. Cardiac: The rhythm was regular. S1 and S2 were normal. There are no murmurs on examination. The PMI was not markedly displaced on palpation. Abdomen: The abdomen was soft and nontender. Extremities: Patient has bilateral radial pulses that are equal in intensity. There is no evidence cyanosis or clubbing. There was no evidence of significant peripheral edema bilaterally, just mild. Skin: There are no rashes noted on examination today. Data Telemetry reviewed: Sinus rhythm with periods of bradycardia including brief junctional rhythms, heart rate as low as 36 bpm since yesterday. Assessment and Plan #1. Syncope: The cause has not been rigorously defined, but is likely this due to sinus bradycardia. 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 #2. Sinus node dysfunction: On telemetry she has clear evidence of sinus node dysfunction with sinus bradycardia and junctional escape rhythms. Heart rate as low as 36 bpm since yesterday. With this and her syncope in the safest approach is to implant a pacemaker. I've discussed that with her, including the indications, procedure, risks and alternatives and she understands and agrees to proceed. She did discuss it with her family who is in agreement, I plan on talking them today but they have left already. I will talk to them about it prior to her procedure tomorrow. My plan is to implant the device tomorrow morning. I also reviewed the indications and risks of sedation with her and she understands. Consent for pacemaker and sedation obtained. Thank you for allowing me to participate in her care.
[2017-10-29] MEDS ORDERED: LACTATED RINGER'S 1000ML 1,000 ML IV ONE (12:16)
[2017-10-29 14:57] VITALS: BP 150/71; PULSE 79; TEMP 37.4; O2SAT 98
[2017-10-29 20:08] VITALS: BP 149/78; PULSE 74; TEMP 36.7; O2SAT 98
[2017-10-29 23:32] VITALS: BP 180/75; PULSE 72; TEMP 36.6; O2SAT 96
[2017-10-30] VITALS (11 sets, daily range): BP systolic 114–162; BP diastolic 43–78; PULSE 62–85; TEMP 36.4–37.8; O2SAT 93–99
[2017-10-30] MEDS ORDERED: CEFAZOLIN IV 1,000 MG in SYRINGE 0 ML IV SCH (06:00)
[2017-10-30] MEDS ORDERED: CEFAZOLIN SOD 1000MG/5 ML IV PUSH IV SCH (06:00)
[2017-10-30] MEDS: FLUTICASONE/SALMETEROL (ADVAIR) 500/50 INH 14 PUFF INH SCH ×2 (07:07→22:03)
[2017-10-30] MEDS: SIMVASTATIN 20 MG TAB PO SCH (07:08)
[2017-10-30] MEDS: LOSARTAN POTASSIUM 50 MG TAB PO SCH (07:08)
[2017-10-30] MEDS: POTASSIUM CHLORIDE 20 MEQ TABCR PO SCH (07:08)
[2017-10-30] MEDS: AMLODIPINE BESYLATE 5 MG TAB PO SCH (07:08)
[2017-10-30] MEDS: CEROVITE ADV FORMULA TAB PO SCH (07:08)
[2017-10-30] MEDS: FLUOXETINE HCL 20 MG CAP PO SCH (07:09)
[2017-10-30] MEDS ORDERED: BACITRACIN 50000 UNIT VIAL ONE (07:40)
[2017-10-30] MEDS ORDERED: LIDOCAINE HCL 1% 20 ML VIAL ONE (07:40)
[2017-10-30] MEDS ORDERED: BACITRACIN OINT 0.9 GM PKT ONE (07:40)
--- NOTE | 2017-10-30 07:55 | Cardiology Follow-Up ---
Subjective Date of Service: Oct 30, 2017. Pt evaluation today including: conversation w/ patient, physical exam, lab review, review of studies, review of inpatient medication list History of Present Illness Patient feels well today, no complaints. Social History Smoking Status: Never Smoker History of Alcohol Use: No Review of Systems Respiratory: No shortness of breath Cardiac: No chest pain Patient denies recent constitutional symptoms such as fevers or chills. No upper airway congestion. She states she has occasional swelling of lower extremities which waxes and wanes in severity. Medications Cardiovascular: Item Value Date Time Losartan Potassium 100 mg 10/29/17 0900 (coZAAR TAB) DAILY/PO 10/30/17 0708 Amlodipine 5 mg 10/29/1700 Besylate QAM/PO 10/30/17 07 (Norvasc Tab) Potassium Chloride 20 meq 10/26/17 09 (Klor-Con Tab) DAILY/PO 10/30/17 0708 Simvastatin 20 mg 10/26/17 0900 (Zocor Tab) DAILY/PO 10/30/17 0708 Objective Vital Signs Past 12 Hours Date Time Temp Pulse Resp B/P (MAP) Pulse Ox O2 Delivery O2 Flow Rate FiO2 10/30/17 04:04 36.8 67 18 120/64 (82) 97 Room Air 10/30/17 04:00 Room Air 10/30/17 00:54 132/70 (90) 10/30/17 00:00 Room Air 10/29/17 23:32 36.6 72 18 180/75 (110) 96 Room Air 10/29/17 20:08 36.7 74 20 149/78 (101) 98 Room Air 10/29/17 20:00 Room Air Last Recorded Weight-Kilograms: 74.600 Physical Exam Constitutional: Level of Distress: NAD Lungs: Auscultation: breath sounds normal Cardiovascular: Heart Auscultation: RRR, no murmurs Extremities: no edema Assessment and Plan #1. Syncope: The cause has not been rigorously defined, but is likely this due to sinus bradycardia. 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 #2. Sinus node dysfunction: On telemetry she has clear evidence of sinus node dysfunction with sinus bradycardia and junctional escape rhythms. Heart rate as low as 36 bpm since yesterday. With this and her syncope in the safest approach is to implant a pacemaker. I've discussed that with her, including the indications, procedure, risks and alternatives and she understands and agrees to proceed. She did discuss it with her family who is in agreement. I reviewed the indications, procedure, risks and alternatives with her and her family and she understands and agrees to proceed. Thank you for allowing me to participate in her care.
--- NOTE | 2017-10-30 07:56 | Pre Sedation Assessment ---
Pre Sedation Assessment General Date of Sedation: Oct 30, 2017. Vital Signs Past 12 Hours Date Time Temp Pulse Resp B/P (MAP) Pulse Ox O2 Delivery O2 Flow Rate FiO2 10/30/17 04:04 36.8 67 18 120/64 (82) 97 Room Air 10/30/17 04:00 Room Air 10/30/17 00:54 132/70 (90) 10/30/17 00:00 Room Air 10/29/17 23:32 36.6 72 18 180/75 (110) 96 Room Air 10/29/17 20:08 36.7 74 20 149/78 (101) 98 Room Air 10/29/17 20:00 Room Air Review Cardiovascular: regular rate, rhythm, no edema, no gallop, no murmur Lungs: lungs clear, normal breath sounds, no respiratory distress, no accessory muscle use Pre-Sedation Airway Assessment Smoking Status: Never Smoker Hx of Sleep Apnea: No Hx of difficult intubation: No Short Thick Neck: No Thyro-mental Distance: > 3 Finger Breadths Oral Cavity: Dentures Mallampati Classification: Class IV ASA Classification: Class II NPO Status Date of Last Intake of Fluids: Oct 29, 2017 Time of Last Intake of Fluids: 0000 Date of Last Intake of Solids: Oct 29, 2017 Time of Last Intake of Solids: 0000 Procedure Planning Contraindications for Sedation: None Current Medications Reviewed: Yes Notes The planned sedation has been discussed with the patient. Informed Consent was obtained. I have identified the patient, determined the appropriateness of sedation and have assessed the patient immediately prior to the procedure. All medicine(s) and interventions are by my order.
[2017-10-30] MEDS ORDERED: FENTANYL CITRATE INJ 50 MCG/1 ML 2 ML VIAL ONE (08:15)
[2017-10-30] MEDS ORDERED: MIDAZOLAM HCL 5 MG/ML 1 ML VIAL ONE (08:15)
--- NOTE | 2017-10-30 09:22 | [facility] Operative Report ---
Operative Report Operative Date Oct 30, 2017. Pre-Operative Diagnosis Sinus node dysfunction Post-Operative Diagnosis same Procedure(s) Performed Dual chamber pacemaker implantation Surgeon Dr. Hanson Blender Surgeon(s) none Estimated Blood Loss 20 cc Findings Good lead position, good measurements Specimens None Anesthesia local with sedation Complication(s) None Disposition PCU Description of Procedure After obtaining informed consent for the procedure, the patient was brought to the laboratory and prepped and draped in the standard sterile manner. The left prepectoral region was anesthetized with 1% lidocaine local anesthetic and left axillary venipuncture was performed by percutaneous technique and a guidewire placed through the left subclavian vein into the superior vena cava. The area was further infiltrated with 1% lidocaine local anesthetic and a 5 cm incision was made parallel to the left clavicle and 2 cm below it and carried down to the anterior pectoralis fascia. A pacemaker pocket was formed by blunt dissection anterior to the pectoralis fascia and a bacitracin-soaked sponge (50, 000 units in 50 cc normal saline solution) was placed in the pocket. An 8 [employer] Med[employer] lead introducer was placed over the guidewire into the left subclavian vein, the dilator and guidewire were removed and a bipolar active fixation steroid tipped ventricular lead was advanced through the introducer into the superior vena cava. A guidewire was placed through the introducer and the introducer was stripped from the lead and guidewire. Another 8 [place] Medtronic lead introducer was placed over the guidewire into the left subclavian vein, the dilator and guidewire were removed and a bipolar active fixation steroid tipped atrial lead was advanced through the introducer into the superior vena cava. A guidewire was placed back through the introducer and the introducer was stripped from the lead and guidewire. Using a curved stylette the ventricular lead was advanced through the right ventricular outflow tract into the pulmonary artery and then using a straight stylette was positioned in the right ventricular apex. The screw was extended fixing the lead in position. Pacing and sensing thresholds were evaluated in bipolar configuration and are recorded on the implant data sheet. Using a curved stylette the atrial lead was positioned in the region of the atrial appendage and the screw extended fixing the lead in position. Pacing and sensing thresholds were evaluated in bipolar configuration and are recorded on the implant data sheet. Once the leads were in position they were attached to the anterior pectoralis fascia using 2 sutures of 2-0 silk around each lead collar. The bacitracin- soaked sponge was removed from the pocket, hemostasis was obtained, the pacemaker was attached to the leads and placed in the pocket with the leads coiled beneath it. The incision was closed with a running double subcutaneous closure of 3-0 V-Lock absorbable suture, followed by running subcuticular skin closure of 4-0 V-Lock absorbable suture. Bacitracin ointment was placed on the incision and a pressure dressing applied. I attest to the content of the Intraoperative Record and any orders documented therein. Any exceptions are noted below.
--- NOTE | 2017-10-30 09:24 | Post Sedation Assessment ---
Post Sedation Assessment General Date of Sedation Oct 30, 2017. Vital Signs: Vital Signs Past 12 Hours Date Time Temp Pulse Resp B/P (MAP) Pulse Ox O2 Delivery O2 Flow Rate FiO2 10/30/17 08:00 Room Air 10/30/17 07:31 37.1 79 18 161/69 (99) 98 Room Air 10/30/17 04:04 36.8 67 18 120/64 (82) 97 Room Air 10/30/17 04:00 Room Air 10/30/17 00:54 132/70 (90) 10/30/17 00:00 Room Air 10/29/17 23:32 36.6 72 18 180/75 (110) 96 Room Air Post Procedure Recovery Score Activity: (2) Moves 4 extremities * Respiration: (2) Deep breath/cough Circulation: (2) +/-20% PreAnes Value Consciousness: (2) Fully Awake Oxygen Saturation: (1) O2 needed for >90% Post Anesthesia Score: 9 Discharge Sedation Level of Care: Fast Track Phase II Post Sedation Plan On clinical assessment, the patient appears to have tolerated the sedation without complications. Patient is recovering as anticipated. Patient will continue to be monitored by nursing and may be discharged when sedation discharge criteria are met per below protocol. Upon Completions of procedure and additional 15 minutes continue every 5 minute vital signs and the P.A.R. score; then discharge to a Phase I or Fast Track to Phase II per the following guidelines: * Discharge Patient to appropriate Phase II area if PAR is 8 or greater or return to pre- procedure baseline. The post - procedure orders will be as directed. * If PAR score is less than 8 or not return to pre-procedure baseline then patient will follow Phase I monitoring till PAR is reached for Phase II. The Phase I may be done in procedure room or may call to secure a Phase I area. * If naloxone or flumazenil are used for reversal, hold in Phase I for an additional 60 -120 minutes before discharge to Phase II. Please call the Sedation Physician to re-evaluate and complete post-note for discharge to Phase II area. Do NOT discharge from procedure sedation or Phase 1 until post- sedation evaluation note is complete by procedure /sedation MD Sedation Discharge Instructions to be given to the patient at discharge to home.
[2017-10-30] MEDS ORDERED: KETOROLAC TROMETHAMINE 10 MG TAB PO PRN (09:30)
[2017-10-30] MEDS ORDERED: ACETAMINOPHEN 325 MG TAB PO PRN (09:30)
[2017-10-30] MEDS: CEFAZOLIN IV 1,000 MG in SYRINGE 0 ML IV SCH ×2 (13:09→22:03)
--- NOTE | 2017-10-30 16:09 | Family Medicine Progress Note ---
Progress Note Date of Service Oct 30, 2017. Subjective Pt evaluation today including: conversation w/ patient, physical exam, chart review, lab review, review of studies, review of inpatient medication list Voiding: no voiding problems Patient seen prior and post pacemaker insertion. Still complaining of pain on her left foot when walking but cannot demonstrate it or point to where exactly it is when she is in the chair and bed. She denies any chest pain, shortness of breath or further dizziness. All Other Systems: Reviewed and Negative Medications Current Inpatient Medications Medications (Trade) Dose Ordered Sig/Jd Route Start Time Stop Time Status Last Admin Dose Admin Acetaminophen (Tylenol Tab) 650 mg Q4H PRN PO 10/25/17 17:45 11/24/17 17:44 10/28/17 19:28 650 MG Al Hydrox/Mg Hydrox/Simethicone (Maalox Max Susp) 15 ml Q4H PRN PO 10/25/17 17:45 11/24/17 17:44 Magnesium Hydroxide (Milk Of Magnesia Susp) 30 ml Q12H PRN PO 10/25/17 17:45 11/24/17 17:44 Ondansetron HCl (Zofran Inj) 4 mg Q6H PRN IV 10/25/17 17:45 11/24/17 17:44 Polyethylene (Miralax Powder Packet) 17 gm DAILY PRN PO 10/25/17 17:45 11/24/17 17:44 Fluoxetine HCl (Prozac Cap) 20 mg QAM PO 10/26/17 09:00 11/25/17 08:59 10/30/17 07:09 20 MG Salmeterol Xinafoate/ Fluticasone (Advair Diskus 500/50 Inh) 1 puff BID INH 10/25/17 21:00 11/24/17 20:59 10/30/17 07:07 1 PUFF Lorazepam (Ativan Tab) 0.5 mg Q6H PRN PO 10/25/17 17:45 11/24/17 17:44 Multivitamins/ Minerals (Multivitamin W/ Minerals Tab) 1 tab DAILY PO 10/26/17 09:00 11/25/17 08:59 10/30/17 07:08 1 TAB Potassium Chloride (Klor-Con Tab) 20 meq DAILY PO 10/26/17 09:00 11/25/17 08:59 10/30/17 07:08 20 MEQ Simvastatin (Zocor Tab) 20 mg DAILY PO 10/26/17 09:00 11/25/17 08:59 10/30/17 07:08 20 MG Albuterol/ Ipratropium (Combivent Respimat Inh) 1 puffs QID PRN INH 10/25/17 21:00 11/24/17 20:59 Miscellaneous (Iv Fluids Completed) 1 ea PRN PRN N/A 10/25/17 19:45 10/25/18 19:44 Hydralazine HCl (HydrALAZINE INJ) 10 mg Q6 PRN IV. 10/28/17 05:15 11/27/17 05:14 10/28/17 17:40 10 MG Losartan Potassium (coZAAR TAB) 100 mg DAILY PO 10/29/17 09:00 11/25/17 08:59 10/30/17 07:08 100 MG Amlodipine Besylate (Norvasc Tab) 5 mg QAM PO 10/29/17 09:00 11/28/17 08:59 10/30/17 07:08 5 MG Cefazolin Sodium 1000 mg/Syringe 5 ml @ 1.667 mls/ min Q8H IV 10/30/17 14:00 10/31/17 13:59 10/30/17 13:09 1.667 MLS/MIN Ketorolac Tromethamine (Toradol Tab) 10 mg Q6H PRN PO 10/30/17 09:30 11/04/17 09:29 Objective Vital Signs Date Time Temp Pulse Resp B/P (MAP) Pulse Ox O2 Delivery O2 Flow Rate FiO2 10/30/17 18:41 36.5 83 16 123/48 (73) 93 Room Air 10/30/17 16:00 Room Air 10/30/17 15:24 36.6 75 16 114/43 (66) 97 Room Air 10/30/17 12:00 Room Air 10/30/17 11:48 36.4 74 20 121/46 (71) 97 Room Air 10/30/17 10:46 62 18 134/62 (86) 99 10/30/17 10:31 62 18 131/64 (86) 98 10/30/17 10:16 36.5 64 18 126/52 (76) 99 10/30/17 09:59 36.5 62 18 124/46 (72) 99 10/30/17 09:30 62 16 140/59 (86) 95 Room Air 10/30/17 09:15 66 18 131/66 (87) 99 Mask 3 10/30/17 08:00 Room Air 10/30/17 07:31 37.1 79 18 161/69 (99) 98 Room Air 10/30/17 04:04 36.8 67 18 120/64 (82) 97 Room Air 10/30/17 04:00 Room Air 10/30/17 00:54 132/70 (90) 10/30/17 00:00 Room Air 10/29/17 23:32 36.6 72 18 180/75 (110) 96 Room Air Physical Exam General Appearance: WD/WN, no apparent distress, + obese Respiratory/Chest: lungs clear, normal breath sounds, no respiratory distress, no accessory muscle use Cardiovascular: regular rate, rhythm, no edema, no JVD, no murmur Abdomen: normal bowel sounds, non tender, soft Extremities: normal range of motion, non-tender, no pedal edema, no calf tenderness, normal capillary refill, + pertinent finding (left ankle and foot does not appear swollen and unable to palpate any areas of tenderness) Neurologic/Psychiatric: 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 PPM today Hypertension - continue on increased dose of losartan - Will stop amlodipine given low normal BP and history of syncope - Hydralazine PRN while inpatient Hyperlipidemia - continue simvastatin CKD III - at baseline ~1.5, increased dose of losartan Head laceration, wrist abrasion - pain control - 10 brian to be removed 11/04/16 (10 days) Asthma - continue combivent, advair VTE Prophylaxis - SCDs, holding off chemical prophylaxis due to pacemaker insertion today Code Status: Full Disposition - remain in telemetry overnight s/p pacemaker insertion. Aim home tomorrow Resident Tracking Resident Involvement: Resident Care Provided Care Provided: Adult Hospital Medicine History no concerns overnight. Constitutional: denies: fever Respiratory: negative: short of breath Cardiovascular: denies chest pain General Appearance: no apparent distress Respiratory: lungs clear, no respiratory distress Cardiovascular: regular rate, rhythm Neurologic/Psychiatric: alert, oriented x 3 Skin Characteristics: warm/dry Assessment/Plan Resident Physician Supervision Note: I independently interviewed and examined the patient and verified the mackey history and physical, reviewed labs and image studies, discussed the case with the resident Dr. Frazier and agree with the findings and care plan.
[2017-10-30] MEDS: ACETAMINOPHEN 325 MG TAB PO PRN (23:50)
[2017-10-31 03:12] VITALS: BP 154/54; PULSE 69; TEMP 36.6; O2SAT 95
[2017-10-31] MEDS: CEFAZOLIN IV 1,000 MG in SYRINGE 0 ML IV SCH (05:27)
--- NOTE | 2017-10-31 07:16 | DIAGNOSTIC IMAGING REPORT ---
CHEST 2 VIEWS ROUTINE CLINICAL HISTORY: EXACT TIME ORDERED Evaluate for pneumothorax and lead placement COMPARISON STUDY: 05/08/2015 FINDINGS: Permanent bipolar cardiac pacemaker. Leads in good position. No evidence of pneumothorax. IMPRESSION: Permanent bipolar cardiac pacemaker with leads in good position. No evidence for pneumothorax. The above report was generated using voice recognition software. It may contain grammatical, syntax or spelling errors. Electronically signed by: Arben Aldana M.D. 10/31/2017 7:15 AM Dictated Date/Time: 10/31/2017 7:14 AM
--- NOTE | 2017-10-31 07:54 | Cardiology Follow-Up ---
Subjective Date of Service: Oct 31, 2017. Pt evaluation today including: conversation w/ patient, physical exam, lab review, review of studies, review of inpatient medication list History of Present Illness She feels well today one day post pacemaker, no incisional discomfort and no chest discomfort. Social History Smoking Status: Never Smoker History of Alcohol Use: No Review of Systems Respiratory: No shortness of breath Cardiac: No chest pain No significant incisional discomfort. Medications Cardiovascular: Item Value Date Time Losartan Potassium 100 mg 10/29/17 0900 (coZAAR TAB) DAILY/PO 10/30/17 0708 Potassium Chloride 20 meq 10/26/17 0900 (Klor-Con Tab) DAILY/PO 10/30/17 0708 Simvastatin 20 mg 10/26/17 0900 (Zocor Tab) DAILY/PO 10/30/17 0708 Objective Vital Signs Past 12 Hours Date Time Temp Pulse Resp B/P (MAP) Pulse Ox O2 Delivery O2 Flow Rate FiO2 10/31/17 04:00 Room Air 10/31/17 03:12 36.6 69 20 154/54 (87) 95 Room Air 10/31/17 00:00 Room Air 10/30/17 23:38 37.8 85 93 162/78 (106) 93 Room Air 10/30/17 20:00 Room Air Last Recorded Weight-Kilograms: 74.600 Physical Exam Constitutional: Level of Distress: NAD Lungs: Auscultation: breath sounds normal Cardiovascular: Heart Auscultation: RRR, no murmurs Extremities: no edema Incision is clean and dry, no significant swelling, minor ecchymosis. Dressing changed. Data Imaging: Good lead position, no pneumothorax EKG: Sinus rhythm post-pacemaker implantation, appropriate pacemaker inhibition Telemetry reviewed: Sinus rhythm with intermittent appropriate atrial pacing Pacemaker evaluation: Excellent pacing and sensing characteristics Assessment and Plan #1. Syncope: The cause has not been rigorously defined, but is likely this due to sinus bradycardia. With a pacemaker in place she should not have bradycardia , the device will monitor for other arrhythmias. We will need to watch her clinically for recurrence. #2. Sinus node dysfunction: She does have intermittent appropriate atrial pacing on telemetry monitoring consistent with sinus node dysfunction. Now with a pacemaker in place beta or calcium blockers can be used as desired. #3. Postop day #1 pacemaker implantation: Doing well postop, the site looks good and the x-ray looks good. Pacemaker evaluation shows excellent characteristics. I will arrange pacemaker follow-up for . Thank you for allowing me to participate in her care.
--- NOTE | 2017-10-31 07:58 | Discharge Instructions ---
Discharge Instructions Date of Service Oct 31, 2017. Admission Reason for Admission: Syncope Discharge Discharge Diagnosis / Problem: dual chamber pacemaker implantation Discharge Goals Goal(s): Improve disease control Activity Recommendations Activity Limitations: resume your previous activity . Instructions / Follow-Up Instructions / Follow-Up ACTIVITY RECOMMENDATIONS: * Do not raise affected arm over head for 2 weeks. SPECIAL CARE INSTRUCTIONS: * If bleeding occurs, apply direct pressure to area for 5 minutes. * Call your doctor if you have severe pain, fever, drainage or bleeding at site. * Keep dressing on and dry for 48 hours then remove. * Keep any scheduled doctor's appointment. * Implant Card - hand held device with website information given. SKIN IRRITATION: * You may experience some redness and/or swelling in the area where radiation was administered. If any skin irritation occurs, please contact your family physician. FOLLOW UP VISIT: Dr. Hanson, , 11/02/2017 11:00 AM at [address] Current Hospital Diet Patient's current hospital diet: AHA Diet (Heart Healthy) Discharge Diet Recommended Diet: N/A Pending Studies Studies pending at discharge: no Laboratory Results Hemoglobin A1c Test 08/29/17 09:45 Range/Units Estimated Average Glucose 143 mg/dl Hemoglobin A1c 6.6 H 4.5-5.6 % Medical Emergencies . Who to Call and When: Medical Emergencies: If at any time you feel your situation is an emergency, please call 911 immediately. . Non-Emergent Contact Non-Emergency issues call your: Primary Care Provider . . "Provider Documentation" section prepared by Thomas Hanson. . VTE Core Measure Inpt VTE Proph given/why not?: SCD's
[2017-10-31 08:00] VITALS: BP 132/61; PULSE 70; TEMP 36.4; O2SAT 94
[2017-10-31] MEDS ORDERED: CZR50 PO (08:18)
[2017-10-31] MEDS: SIMVASTATIN 20 MG TAB PO SCH (08:21)
[2017-10-31] MEDS: FLUOXETINE HCL 20 MG CAP PO SCH (08:22)
[2017-10-31] MEDS: POTASSIUM CHLORIDE 20 MEQ TABCR PO SCH (08:22)
[2017-10-31] MEDS: CEROVITE ADV FORMULA TAB PO SCH (08:22)
[2017-10-31] MEDS: LOSARTAN POTASSIUM 50 MG TAB PO SCH (08:22)
[2017-10-31] MEDS: FLUTICASONE/SALMETEROL (ADVAIR) 500/50 INH 14 PUFF INH SCH (08:23)
--- NOTE | 2017-10-31 10:13 | Discharge Instructions ---
Discharge Instructions Date of Service Oct 31, 2017. Admission Reason for Admission: Syncope And Collapse Discharge Discharge Diagnosis / Problem: Syncope, sinus node dysfunction, head laceration Discharge Goals Goal(s): Improve function, Increase independence Activity Recommendations Activity Limitations: per Instructions/Follow-up section . Instructions / Follow-Up Instructions / Follow-Up Please follow up with your primary care physician: Follow up appt scheduled w/ Dr. Araujo on MondayNovember 08 at 11:30 am. Please arrange a nursing appointment for brian to be removed on or around the 04 November 2017. Please see cardiology discharge for follow up for pacemaker. Current Hospital Diet Patient's current hospital diet: AHA Diet (Heart Healthy) Discharge Diet Recommended Diet: AHA Diet (Heart Healthy) Pending Studies Studies pending at discharge: no Laboratory Results Hemoglobin A1c Test 08/29/17 09:45 Range/Units Estimated Average Glucose 143 mg/dl Hemoglobin A1c 6.6 H 4.5-5.6 % Medical Emergencies . Who to Call and When: Medical Emergencies: If at any time you feel your situation is an emergency, please call 911 immediately. . Non-Emergent Contact Non-Emergency issues call your: Primary Care Provider . . "Provider Documentation" section prepared by Corwin Frazier. . VTE Core Measure Inpt VTE Proph given/why not?: SCD's
--- NOTE | 2017-10-31 10:13 | Discharge Instructions ---
Discharge Instructions Date of Service Oct 31, 2017. Admission Reason for Admission: Syncope And Collapse Activity Recommendations . Current Hospital Diet Patient's current hospital diet: AHA Diet (Heart Healthy) Laboratory Results Hemoglobin A1c Test 08/29/17 09:45 Range/Units Estimated Average Glucose 143 mg/dl Hemoglobin A1c 6.6 H 4.5-5.6 % Medical Emergencies . Who to Call and When: Medical Emergencies: If at any time you feel your situation is an emergency, please call 911 immediately. . Non-Emergent Contact . . "Provider Documentation" section prepared by Corwin Frazier. . VTE Core Measure Inpt VTE Proph given/why not?: SCD's
[2017-10-31 11:20] VITALS: BP 132/61; PULSE 70; TEMP 36.4; O2SAT 94
[2017-10-31 12:00] VITALS: BP 127/58; PULSE 73; TEMP 37; O2SAT 98
== END 2017-10-31 12:45 | disposition home or self-care (01) ==
LOC: C.EDB 13:45 → C.2T 17:36 → ENRESERV 17:55 → C.MED 10-27 01:39 → ENRESERV 10-30 08:47 → C.2E 10-30 09:26
PROVIDERS: ADMIT Internal Medicine; ATTEND Family Medicine
DX: I49.5 Sick sinus syndrome (principal); R55 Syncope and collapse; S01.01XA Laceration without foreign body of scalp, initial encounter; S61.501A Unspecified open wound of right wrist, initial encounter; W10.8XXA Fall (on) (from) other stairs and steps, initial encounter; W07.XXXA Fall from chair, initial encounter; I12.9 Hypertensive chronic kidney disease with stage 1 through stage 4 chronic kidney disease, or unspecified chronic kidney disease; N18.3 Chronic kidney disease, stage 3 (moderate); E78.5 Hyperlipidemia, unspecified; J45.909 Unspecified asthma, uncomplicated; Z87.891 Personal history of nicotine dependence; Z83.3 Family history of diabetes mellitus; Z82.49 Family history of ischemic heart disease and other diseases of the circulatory system

== ENCOUNTER 2017-11-29 12:27 | Emergency (ER) | payer BC ==
[~2017-11-29] VITALS: Ht 162.6 cm; Wt 74.8 kg
[~2017-11-29 12:27] MED LIST changes: -ADVIN10/60 INH; +ADVIN50/60 INH; +CZR50 PO; -DMD20 PO; +IPRA1AER2 INH; -LISI5TAB3 PO; +POTA20TA13 PO; -POTA20TA16 PO; -PSYL55.43 PO; +SIMV-151 PO; -SIMV10TA2 PO
[2017-11-29 12:33] VITALS: TEMP 36.7
[2017-11-29] MEDS ORDERED: MECLIZINE HCL 25 MG TAB PO STA (12:49)
[2017-11-29 13:07] VITALS: Ht 162.6 cm; Wt 74.8 kg
--- NOTE | 2017-11-29 13:09 | DIAGNOSTIC IMAGING REPORT ---
CHEST ONE VIEW PORTABLE CLINICAL HISTORY: 82 years-old Female presenting with EVALUATE ALTERED MENTAL STATUS/WEAKNESS, dizziness. TECHNIQUE: Portable upright AP view of the chest was obtained. COMPARISON: 10/31/2017. FINDINGS: Left subclavian pacer with leads to the right atrium and right ventricular apex. Atherosclerosis of the aortic arch. Tortuosity of the descending thoracic aorta. Cardiac silhouette normal in size. Calcified granuloma noted at the right lung base. Lungs and pleural spaces otherwise clear. Scoliotic curvature of the spine with degenerative change. Degenerative changes of the bilateral glenohumeral joints. Upper abdomen normal. IMPRESSION: 1. No acute cardiopulmonary disease. Electronically signed by: Oskar Villareal M.D. 11/29/2017 1:08 PM Dictated Date/Time: 11/29/2017 1:07 PM
[2017-11-29 13:22] LABS: BASO % 0.6 %; BASO ABS # 0.04 K/uL (0-0.2); EOS % 5.5 %; EOS ABS # 0.35 K/uL (0-0.5); HEMATOCRIT 35.4 % (37-47); HEMOGLOBIN 11.7 g/dL (12.0-16.0); LYMPH % 26.4 %; LYMPH ABS # 1.68 K/uL (1.2-3.4); MEAN CELL VOLUME 93.7 fL (80-100); MEAN CORPUSCULAR HGB CONC 33.1 g/dl (32-36); MEAN PLATELET VOLUME 8.9 fL (7.4-10.4); MONO % 8.9 %; MONO ABS # 0.57 K/uL (0.11-0.59); NEUT % 58.6 %; NEUT ABS # 3.73 K/uL (1.4-6.5); PLATELET COUNT 182 K/uL (130-400); RED CELL DISTRIBUTION WIDTH CV 13.1 % (11.5-14.5); RED CELL DISTRIBUTION WIDTH SD 45.2 fL (36.4-46.3); WHITE BLOOD COUNT 6.37 K/uL (4.8-10.8)
[2017-11-29 13:24] VITALS: O2SAT 98
[2017-11-29 13:39] LABS: ALBUMIN 3.5 gm/dl (3.4-5.0); CALCIUM 9.3 mg/dl (8.5-10.1); CREATININE 1.1 mg/dl (0.60-1.20); POTASSIUM 3.8 mmol/L (3.5-5.1)
--- NOTE | 2017-11-29 13:40 | DIAGNOSTIC IMAGING REPORT ---
CT HEAD WITHOUT CONTRAST (CT) CLINICAL HISTORY: Dizziness, lightheadedness. Weakness. Change in mental status. COMPARISON STUDY: 10/25/2017 TECHNIQUE: Axial CT of the brain is performed from the vertex to the skull base. IV contrast was not administered for this examination. A dose lowering technique was utilized adhering to the principles of ALARA. CT DOSE: 537.48 mGy.cm FINDINGS: No intra or extra-axial mass lesions are visualized. There is no CT evidence of acute cortical infarction. There is no evidence of midline shift. There is no acute hemorrhage. No calvarial fractures are visualized. There are moderately extensive white matter hypodensities likely on a small vessel basis. There is no evidence of pathologic ventricular dilatation. There is no evidence of acute sinusitis IMPRESSION: No acute intracranial findings Electronically signed by: Nahun Arreola M.D. 11/29/2017 1:39 PM Dictated Date/Time: 11/29/2017 1:37 PM
[2017-11-29] MEDS ORDERED: MECL1TAB42 PO (15:12)
[2017-11-29 15:17] VITALS: BP 199/100; PULSE 61; O2SAT 97
--- NOTE | 2017-11-29 15:17 | EMERGENCY ROOM VISIT NOTE ---
History Report prepared by Kellee: Chon Colon Under the Supervision of: Dr. Luiz Carmona D.O. First contact with patient: 12:39 Chief Complaint: DIZZY Stated Complaint: DIZZY,LIGHT HEADED History of Present Illness The patient is a 82 year old female who presents to the Emergency Room with complaints of intermittent dizziness beginning 4.5 hours ago. She describes her symptoms as feeling "off-balance" with "the room spinning". Her dizziness is worsened with turning her head. The patient also complains of head pain. She feels that the pain in her head is actually located on her posterior scalp. She denies fevers, urinary symptoms, rashes, shortness of breath, nausea, vomiting, diarrhea, abdominal pain, or LOC. The patient notes that she had similar symptoms previously prior to passing out and having a pacemaker placed. She states that she can feel her pacemaker currently, and that this is abnormal for her. She feels that the pacemaker may have moved. The patient states that she felt normal this morning as well as yesterday. She has a history of hypertension and states that she took her medication today as normal. She states that she took all of her normal medication this morning. The patient notes that she has had a cough for the past several days. She states that she has been off balance. Source of History: patient Onset: 4.5 hours ago Quality: other (dizziness) Timing: intermittent Modifying Factors (Worsening): other (turning head) Associated Symptoms: + headache (posterior scalp), + cough, No LOC, No fevers, No SOB, No nausea, No vomiting, No abdominal pain, No diarrhea, No urinary symptoms Review of Systems See HPI for pertinent positives & negatives. A total of 10 systems reviewed and were otherwise negative. Past Medical & Surgical Medical Problems: (1) Asthma (2) HTN (hypertension) (3) Syncope and collapse Family History Cancer Diabetes mellitus Gallbladder disease Hypertension Social History Smoking Status: Former Smoker Drug Use: none Marital Status: Housing Status: lives with significant other Occupation Status: retired Current/Historical Medications Scheduled Calcium/Vitamin D (Os-Efren 500 Plus D), 1 TAB PO DAILY Fluoxetine (Prozac), 20 MG PO QAM Fluticasone Prop/Salmeterol (Advair Diskus 500/50 60 Dose), 1 PUFF INH BID Ipratropium-Albuterol (Combivent Respimat), 1 PUFF INH UD Losartan Potassium (Losartan Potassium), 100 MG PO DAILY Multivitamins/Minerals (Mvi With Minerals), 1 TAB PO DAILY Simvastatin (Simvastatin), 20 MG PO DAILY Scheduled PRN Acetaminophen (Tylenol), 500-1,000 MG PO HS PRN for sleep/pain Lorazepam (Ativan), 0.5 MG PO Q6H PRN for anxiety Meclizine Hcl (Meclizine Hcl), 1 TAB PO TID PRN for Dizziness or Vertigo Allergies Coded Allergies: No Known Allergies (Unverified , 11/29/17) Physical Exam Vital Signs Date Time Temp Pulse Resp B/P (MAP) Pulse Ox O2 Delivery O2 Flow Rate FiO2 11/29/17 15:17 61 16 199/100 97 Room Air 11/29/17 13:56 60 16 177/78 97 Room Air 11/29/17 13:24 98 Room Air 11/29/17 13:24 61 11/29/17 13:19 98 Room Air 11/29/17 13:19 72 16 213/88 98 Room Air 86 217/100 78 221/108 11/29/17 13:17 80 11/29/17 12:33 36.7 72 20 214/88 94 Room Air Physical Exam GENERAL: Patient is awake, alert, and in no acute distress. Patient is resting comfortably and showing no signs of anxiety EYES: The conjunctivae are clear. The pupils are round and reactive. EARS, NOSE, MOUTH AND THROAT: TMs clear bilaterally. The nose is without any evidence of any deformity. Mucous membranes are moist tongue is midline NECK: The neck is nontender and supple. RESPIRATORY: Normal respiratory effort is noted there is no evidence of wheezing rhonchi or rales CARDIOVASCULAR: Regular rate and rhythm noted there no murmurs rubs or gallops normal S1 normal S2 GASTROINTESTINAL: The abdomen is soft. Bowel sounds are present in all quadrants. Abdomen is nontender MUSCULOSKELETAL/EXTREMITIES: There is no evidence of gross deformity full range of motion is noted in the hips and shoulders. Pedal edema bilaterally. No signs of cellulitis. SKIN: There is no obvious evidence of any rash. There are no petechiae, pallor or cyanosis noted. NEUROLOGIC: Patient is awake alert and oriented x3. Strength symmetric. Patellar reflexes 1+ bilaterally. Medical Decision & Procedures ER Provider Diagnostic Interpretation: Radiology results as stated below per my review and radiologist interpretation: CT HEAD WITHOUT CONTRAST (CT) FINDINGS: No intra or extra-axial mass lesions are visualized. There is no CT evidence of acute cortical infarction. There is no evidence of midline shift. There is no acute hemorrhage. No calvarial fractures are visualized. There are moderately extensive white matter hypodensities likely on a small vessel basis. There is no evidence of pathologic ventricular dilatation. There is no evidence of acute sinusitis IMPRESSION: No acute intracranial findings Electronically signed by: Nahun Arreola M.D. 11/29/2017 1:39 PM CHEST ONE VIEW PORTABLE FINDINGS: Left subclavian pacer with leads to the right atrium and right ventricular apex. Atherosclerosis of the aortic arch. Tortuosity of the descending thoracic aorta. Cardiac silhouette normal in size. Calcified granuloma noted at the right lung base. Lungs and pleural spaces otherwise clear. Scoliotic curvature of the spine with degenerative change. Degenerative changes of the bilateral glenohumeral joints. Upper abdomen normal. IMPRESSION: 1. No acute cardiopulmonary disease. Electronically signed by: Oskar Villareal M.D. 11/29/2017 1:08 PM Laboratory Results 11/29/17 13:08 Red Blood Count 3.78, Mean Corpuscular Volume 93.7, Mean Corpuscular Hemoglobin 31.0, Mean Corpuscular Hemoglobin Concent 33.1, Mean Platelet Volume 8.9, Neutrophils (%) (Auto) 58.6, Lymphocytes (%) (Auto) 26.4, Monocytes (%) (Auto) 8.9, Eosinophils (%) (Auto) 5.5, Basophils (%) (Auto) 0.6, Neutrophils # (Auto) 3.73, Lymphocytes # (Auto) 1.68, Monocytes # (Auto) 0.57, Eosinophils # (Auto) 0.35, Basophils # (Auto) 0.04 11/29/17 13:08 Test 11/29/17 13:08 11/29/17 13:21 White Blood Count 6.37 K/uL (4.8-10.8) Red Blood Count 3.78 M/uL (4.2-5.4) Hemoglobin 11.7 g/dL (12.0-16.0) Hematocrit 35.4 % (37-47) Mean Corpuscular Volume 93.7 fL (80-100) Mean Corpuscular Hemoglobin 31.0 pg (25-34) Mean Corpuscular Hemoglobin Concent 33.1 g/dl (32-36) Platelet Count 182 K/uL (130-400) Mean Platelet Volume 8.9 fL (7.4-10.4) Neutrophils (%) (Auto) 58.6 % Lymphocytes (%) (Auto) 26.4 % Monocytes (%) (Auto) 8.9 % Eosinophils (%) (Auto) 5.5 % Basophils (%) (Auto) 0.6 % Neutrophils # (Auto) 3.73 K/uL (1.4-6.5) Lymphocytes # (Auto) 1.68 K/uL (1.2-3.4) Monocytes # (Auto) 0.57 K/uL (0.11-0.59) Eosinophils # (Auto) 0.35 K/uL (0-0.5) Basophils # (Auto) 0.04 K/uL (0-0.2) RDW Standard Deviation 45.2 fL (36.4-46.3) RDW Coefficient of Variation 13.1 % (11.5-14.5) Immature Granulocyte % (Auto) 0.0 % Immature Granulocyte # (Auto) 0.00 K/uL (0.00-0.02) Prothrombin Time 10.1 SECONDS (9.0-12.0) Prothromb Time International Ratio 1.0 (0.9-1.1) Activated Partial Thromboplast Time 25.0 SECONDS (21.0-31.0) Partial Thromboplastin Ratio 1.0 Anion Gap 8.0 mmol/L (3-11) Est Creatinine Clear Calc Drug Dose 37.7 ml/min Estimated GFR () 53.4 Estimated GFR (Non- 46.1 BUN/Creatinine Ratio 14.1 (10-20) Calcium Level 9.3 mg/dl (8.5-10.1) Magnesium Level 2.1 mg/dl (1.8-2.4) Total Bilirubin 0.3 mg/dl (0.2-1) Direct Bilirubin 0.1 mg/dl (0-0.2) Aspartate Amino Transf (AST/SGOT) 15 U/L (15-37) Alanine Aminotransferase (ALT/SGPT) 15 U/L (12-78) Alkaline Phosphatase 101 U/L (45-117) Troponin I 0.048 ng/ml (0-0.045) Total Protein 7.0 gm/dl (6.4-8.2) Albumin 3.5 gm/dl (3.4-5.0) Thyroid Stimulating Hormone (TSH) 1.700 uIu/ml (0.300-4.500) Urine Color YELLOW Urine Appearance CLEAR (CLEAR) Urine pH 7.5 (4.5-7.5) Urine Specific [place] 1.000 (1.000-1.030) Urine Protein NEG (NEG) Urine Glucose (UA) NEG (NEG) Urine Ketones NEG (NEG) Urine Occult Blood NEG (NEG) Urine Nitrite NEG (NEG) Urine Bilirubin NEG (NEG) Urine Urobilinogen NEG (NEG) Urine Leukocyte Esterase NEG (NEG) Laboratory results per my review. Medications Administered Medications (Trade) Dose Ordered Sig/Jd Route Start Time Stop Time Status Last Admin Dose Admin Meclizine HCl (Antivert Tab) 25 mg NOW STAT PO 11/29/17 12:49 11/29/17 12:51 DC 11/29/17 13:21 25 MG ECG Indication: other (dizziness) Rate (beats per minute): 64 Rhythm: normal sinus Findings: no acute ischemic change, no ectopy Comparison ECG Date: 10/30/2017 Change: no significant change ED Course 1242: The patient was evaluated in room C4. A complete history and physical examination were performed. 1514: Upon reevaluation, the patient is resting comfortably. She ambulated successfully. I discussed the results and treatment plan with her. She verbalized agreement of the treatment plan. The patient was discharged home. Medical Decision Differential diagnosis: Etiologies such as benign positional vertigo, dehydration, hypovolemia, anemia, tumor, infection, hypoglycemia, electrolyte abnormalities, cardiac sources, intracerebral event, toxicologic, neurologic, as well as others were entertained. Nursing notes reviewed. Additional history is obtained from the patient's family members. The patient is an 82-year-old female who presented to the emergency department for evaluation of vertigo. The patient did not have any significant ambulatory dysfunction. She states her symptoms were worse this morning but seemed to have improved. She had no focal neurologic deficit. I discussed the patient's laboratory and radiographic studies with her. She was found to have a mild elevation in her troponin however this appears to be chronic. I discussed follow-up with the patient. She was encouraged to rest and avoid any strenuous activity. I also discussed returning to the emergency department immediately if symptoms change worsening the need arises. Specifically she developed any symptoms which would be consistent with stroke or heart attack. She was treated with Antivert in the emergency department. She states the symptoms were mildly improved. Medication Reconcilliation Current Medication List: was personally reviewed by me Blood Pressure Screening Patient's blood pressure: Elevated blood pressure Blood pressure disposition: Referred to PCP Impression Primary Impression: Vertigo Scribe Attestation The scribe's documentation has been prepared under my direction and personally reviewed by me in its entirety. I confirm that the note above accurately reflects all work, treatment, procedures, and medical decision making performed by me. Departure Information Dispostion Home / Self-Care Prescriptions Meclizine Hcl (MECLIZINE HCL) 25 Mg Tab 1 TAB PO TID Y for Dizziness or Vertigo, #30 TAB Prov: Luiz Carmona, 11/29/17 Referrals Chito Dunbar M.D. (PCP) Forms HOME CARE DOCUMENTATION FORM, IMPORTANT VISIT INFORMATION Patient Instructions ED Vertigo Unspecified, My [facility] Additional Instructions Call your family doctor to schedule a follow-up appointment. Continue all medications as prescribed. Rest and avoid any strenuous activity. Return to the emergency department immediately if symptoms change worsening of the need arises.
== END 2017-11-29 15:39 | disposition home or self-care (01) ==
LOC: C.EDB 12:29 → C.EDC 15:39
DX: R42 Dizziness and giddiness (principal); I10 Essential (primary) hypertension; J45.909 Unspecified asthma, uncomplicated; Z95.0 Presence of cardiac pacemaker; Z79.51 Long term (current) use of inhaled steroids; Z87.891 Personal history of nicotine dependence; Z80.9 Family history of malignant neoplasm, unspecified; Z83.3 Family history of diabetes mellitus; Z83.79 Family history of other diseases of the digestive system; Z82.49 Family history of ischemic heart disease and other diseases of the circulatory system

== ENCOUNTER 2017-12-07 17:19 | Emergency (ER) | payer BC ==
[~2017-12-07] VITALS: Ht 162.6 cm; Wt 73.0 kg
[~2017-12-07 17:19] MED LIST changes: +MECL1TAB42 PO; -POTA20TA13 PO
[2017-12-07 17:37] VITALS: TEMP 36.9; Ht 162.6 cm; Wt 73.0 kg
[2017-12-07 21:22] LABS: BASO % 0.9 %; BASO ABS # 0.07 K/uL (0-0.2); EOS % 5.1 %; EOS ABS # 0.39 K/uL (0-0.5); HEMATOCRIT 36.8 % (37-47); HEMOGLOBIN 12.2 g/dL (12.0-16.0); IG# 0.01 K/uL (0.00-0.02); LYMPH % 30.8 %; LYMPH ABS # 2.38 K/uL (1.2-3.4); MEAN CELL VOLUME 93.2 fL (80-100); MEAN CORPUSCULAR HEMOGLOBIN 30.9 pg (25-34); MEAN CORPUSCULAR HGB CONC 33.2 g/dl (32-36); MEAN PLATELET VOLUME 9.1 fL (7.4-10.4); MONO % 10.4 %; NEUT % 52.7 %; NEUT ABS # 4.07 K/uL (1.4-6.5); PLATELET COUNT 246 K/uL (130-400); RED CELL DISTRIBUTION WIDTH CV 12.6 % (11.5-14.5); RED CELL DISTRIBUTION WIDTH SD 42.8 fL (36.4-46.3); WHITE BLOOD COUNT 7.72 K/uL (4.8-10.8)
[2017-12-07] MEDS ORDERED: MULTCAP33 PO (21:32)
[2017-12-07] MEDS ORDERED: LOSA1TAB38 PO (21:32)
[2017-12-07] MEDS ORDERED: MECL1TAB42 PO (21:32)
[2017-12-07] MEDS ORDERED: OMEG10002 PO (21:32)
--- NOTE | 2017-12-07 21:36 | DIAGNOSTIC IMAGING REPORT ---
CHEST ONE VIEW PORTABLE HISTORY: EVALUATE ALTERED MENTAL STATUS/WEAKNESS COMPARISON: Chest 12/09/2017. FINDINGS: Stable calcified granuloma within the right lung base and stable linear scarlike density at the left lung base. The lungs are otherwise clear. The heart is normal in size. No pleural effusions. No pneumothorax. Left-sided dual-chamber pacemaker. IMPRESSION: No significant change compared to the prior study. No acute process. Electronically signed by: Steve Jarrett M.D. 12/07/2017 9:34 PM Dictated Date/Time: 12/07/2017 9:33 PM
[2017-12-07 21:41] LABS: CALCIUM 9.9 mg/dl (8.5-10.1); CREATININE 1.12 mg/dl (0.60-1.20); POTASSIUM 4.1 mmol/L (3.5-5.1)
[2017-12-07 23:00] VITALS: BP 176/81; PULSE 71; O2SAT 96
--- NOTE | 2017-12-07 23:23 | EMERGENCY ROOM VISIT NOTE ---
History Report prepared by Kellee: Souleymane Cline Under the Supervision of: Dr. Max Govea D.O. First contact with patient: 20:40 Chief Complaint: DIZZY Stated Complaint: DISORIENTED, DIZZY, MEMORY LOSS Nursing Triage Summary: pt has been seen in ER twice over past several weeks pt has been dizzy increase falls memory issues History of Present Illness The patient is an 82 year old female who presents to the Emergency Room with complaints of constant dizziness beginning a few days ago. The patient states that she fainted and fell a month ago. She notes that she had a pacemaker placed following her fall. She reports that she was brought into the emergency department today because she could not think of answers to her stripper color's questions. Per son, the patient has also been forgetful, disoriented, and fatigued. He also notes that the patient is not balanced when she walks. He reports that the patient has had symptoms similar to her current symptoms, but states that this is the worse that her symptoms have been. The patient denies any fever, abdominal pain, vomiting, and recent trauma. Source of History: patient Onset: a few days ago Position: head Quality: other (dizziness) Timing: constant Associated Symptoms: No fevers, No vomiting, No abdominal pain Note: The patient has been forgetful, disoriented, and fatigued. She has also had difficulty keeping her balance while walking. Review of Systems See HPI for pertinent positives & negatives. A total of 10 systems reviewed and were otherwise negative. Past Medical & Surgical Medical Problems: (1) Asthma (2) HTN (hypertension) (3) Syncope and collapse Surgical Problems: (1) History of hip replacement (2) Pacemaker Family History Cancer Diabetes mellitus Gallbladder disease Heart disease Hypertension Social History Smoking Status: Former Smoker Drug Use: none Marital Status: Housing Status: lives alone Occupation Status: retired Current/Historical Medications Scheduled Calcium/Vitamin D (Os-Efren 500 Plus D), 1 TAB PO DAILY Fluoxetine (Prozac), 20 MG PO BID Fluticasone Prop/Salmeterol (Advair Diskus 500/50 60 Dose), 1 PUFF INH BID Ipratropium-Albuterol (Combivent Respimat), 1 PUFF INH DAILY Losartan Potassium (Cozaar), 100 MG PO DAILY Multiple Vitamins W/ Minerals (Preservision Areds), 1 CAP PO BID Multivitamins/Minerals (Mvi With Minerals), 1 TAB PO DAILY [place]-3 Fatty Acids (Fish Oil), 1,000 MG PO BID Simvastatin (Simvastatin), 20 MG PO DAILY Scheduled PRN Acetaminophen (Tylenol), 500-1,000 MG PO HS PRN for sleep/pain Lorazepam (Ativan), 0.5 MG PO Q6H PRN for anxiety Meclizine Hcl (Meclizine Hcl), 25 MG PO TID PRN for Dizziness or Vertigo Allergies Coded Allergies: No Known Allergies (Unverified , 12/07/17) Physical Exam Vital Signs Date Time Temp Pulse Resp B/P (MAP) Pulse Ox O2 Delivery O2 Flow Rate FiO2 12/07/17 23:00 71 18 176/81 96 Room Air 12/07/17 22:00 62 20 195/75 95 Room Air 12/07/17 20:43 65 12/07/17 17:37 36.9 75 20 168/84 95 Room Air Physical Exam VITAL SIGNS: were reviewed as above. GENERAL:Non-toxic in appearance. SKIN: Warm dry and pink. HEAD: Normocephalic and atraumatic. OROPHARYNX: Is clear and moist NECK: Supple without lymphadenopathy or meningismus. LUNGS: clear. HEART: Regular rate and rhythm. ABDOMEN: Soft and nontender. EXTREMITIES: Warm and well perfused. NEUROLOGICALLY: Awake alert and oriented without focal deficit. Cranial nerves 2 -12 are intact. There is no pronator drift. Cerebellar testing is within normal limits. There is no nystagmus. There is no facial droop. Speech is clear. Vision is grossly normal. MUSCULOSKELETAL: Good muscle tone. No evidence of trauma. Medical Decision & Procedures ER Provider Diagnostic Interpretation: Radiology results as stated below per my review and radiologist interpretation: CHEST ONE VIEW PORTABLE FINDINGS: Stable calcified granuloma within the right lung base and stable linear scarlike density at the left lung base. The lungs are otherwise clear. The heart is normal in size. No pleural effusions. No pneumothorax. Left-sided dual-chamber pacemaker. IMPRESSION: No significant change compared to the prior study. No acute process. Electronically signed by: Steve Jarrett M.D. 12/07/2017 9:34 PM Laboratory Results 12/07/17 21:00 Red Blood Count 3.95, Mean Corpuscular Volume 93.2, Mean Corpuscular Hemoglobin 30.9, Mean Corpuscular Hemoglobin Concent 33.2, Mean Platelet Volume 9.1, Neutrophils (%) (Auto) 52.7, Lymphocytes (%) (Auto) 30.8, Monocytes (%) (Auto) 10.4, Eosinophils (%) (Auto) 5.1, Basophils (%) (Auto) 0.9, Neutrophils # (Auto ) 4.07, Lymphocytes # (Auto) 2.38, Monocytes # (Auto) 0.80, Eosinophils # (Auto ) 0.39, Basophils # (Auto) 0.07 12/07/17 21:00 Test 12/07/17 21:00 12/07/17 21:50 White Blood Count 7.72 K/uL (4.8-10.8) Red Blood Count 3.95 M/uL (4.2-5.4) Hemoglobin 12.2 g/dL (12.0-16.0) Hematocrit 36.8 % (37-47) Mean Corpuscular Volume 93.2 fL (80-100) Mean Corpuscular Hemoglobin 30.9 pg (25-34) Mean Corpuscular Hemoglobin Concent 33.2 g/dl (32-36) Platelet Count 246 K/uL (130-400) Mean Platelet Volume 9.1 fL (7.4-10.4) Neutrophils (%) (Auto) 52.7 % Lymphocytes (%) (Auto) 30.8 % Monocytes (%) (Auto) 10.4 % Eosinophils (%) (Auto) 5.1 % Basophils (%) (Auto) 0.9 % Neutrophils # (Auto) 4.07 K/uL (1.4-6.5) Lymphocytes # (Auto) 2.38 K/uL (1.2-3.4) Monocytes # (Auto) 0.80 K/uL (0.11-0.59) Eosinophils # (Auto) 0.39 K/uL (0-0.5) Basophils # (Auto) 0.07 K/uL (0-0.2) RDW Standard Deviation 42.8 fL (36.4-46.3) RDW Coefficient of Variation 12.6 % (11.5-14.5) Immature Granulocyte % (Auto) 0.1 % Immature Granulocyte # (Auto) 0.01 K/uL (0.00-0.02) Anion Gap 6.0 mmol/L (3-11) Est Creatinine Clear Calc Drug Dose 36.6 ml/min Estimated GFR () 52.2 Estimated GFR (Non- 45.1 BUN/Creatinine Ratio 13.1 (10-20) Calcium Level 9.9 mg/dl (8.5-10.1) Total Creatine Kinase 85 U/L (26-192) Creatine Kinase MB 1.0 ng/ml (0.5-3.6) Creatine Kinase MB Ratio 1.2 (0-3.0) Lipase 100 U/L (73-393) Urine Color YELLOW Urine Appearance CLOUDY (CLEAR) Urine pH 5.5 (4.5-7.5) Urine Specific [place] 1.026 (1.000-1.030) Urine Protein NEG (NEG) Urine Glucose (UA) NEG (NEG) Urine Ketones TRACE (NEG) Urine Occult Blood NEG (NEG) Urine Nitrite NEG (NEG) Urine Bilirubin NEG (NEG) Urine Urobilinogen NEG (NEG) Urine Leukocyte Esterase SMALL (NEG) Urine WBC (Auto) 10-30 /hpf (0-5) Urine RBC (Auto) 0-4 /hpf (0-4) Urine Hyaline Casts (Auto) 1-5 /lpf (0-5) Urine Epithelial Cells (Auto) 10-20 /lpf (0-5) Urine Bacteria (Auto) NEG (NEG) Urine Crystals CALCIUM OXALATE (NONE Laboratory results as stated above per my review. ECG Per My Interpretation Indication: altered mental status Rate (beats per minute): 66 Rhythm: normal sinus Findings: no ectopy, other (Normal axis, normal intervals, no ST elevation) ED Course 2041: Previous medical records were reviewed. The patient was evaluated in room A9. A complete history and physical examination was performed. 2324: On reevaluation, the patient is stable. I discussed the results and findings with the patient. She verbalized agreement of the treatment plan. The patient was discharged home. Medical Decision Differential includes acute coronary syndrome, myocardial infarction, CVA, TIA, anemia, infection, pneumonia, UTI, pyelonephritis, poor nutrition, dehydration, electrolyte disturbance,hypoglycemia. This is an 82-year-old female who presents to the ED with a chief complaint of some memory issues as well as some dizziness. The patient has been seen here for the same in the past. She states that she has had the symptoms for a couple of weeks. She was evaluated November 29 with similar symptoms. She has home health nurses/comfort care workers that see her at home. The patient has no other specific complaints. She has not had any recent trauma or falls. Her vital signs are stable. Her physical exam was unremarkable. Neurologically she is without deficits. Her EKG shows a normal sinus rhythm. CBC is normal, PRP was normal, troponin was negative, lipase is negative, urine reveals trace ketones otherwise appears contaminated. Chest x-ray was negative for acute disease. The patient was told the results of the test. The patient is felt to be stable for discharge and outpatient follow-up. She was discharged with her son. Blood Pressure Screening Patient's blood pressure: Elevated blood pressure Blood pressure disposition: Referred to PCP Impression Primary Impression: Weakness Additional Impression: Memory deficit Scribe Attestation The scribe's documentation has been prepared under my direction and personally reviewed by me in its entirety. I confirm that the note above accurately reflects all work, treatment, procedures, and medical decision making performed by me. Departure Information Dispostion Home / Self-Care Referrals Chito Dunbar M.D. (PCP) Forms HOME CARE DOCUMENTATION FORM, IMPORTANT VISIT INFORMATION Patient Instructions My [facility] Additional Instructions Follow-up with your doctor for further care and evaluation in 1-2 days. Return to the emergency department for worsening or new symptoms or any concerns. You have been examined and treated today on an emergency basis only. This is not a substitute for, or an effort to provide, complete comprehensive medical care. It is impossible to recognize and treat all injuries or illnesses in a single emergency department visit. It is therefore important that you follow up closely with your doctor. Call as soon as possible for an appointment. Problem Qualifiers
== END 2017-12-07 23:37 | disposition home or self-care (01) ==
LOC: C.EDB 17:20 → C.EDA 23:37
DX: R53.1 Weakness (principal); G31.84 Mild cognitive impairment of uncertain or unknown etiology; J45.909 Unspecified asthma, uncomplicated; I10 Essential (primary) hypertension; Z95.0 Presence of cardiac pacemaker; Z96.649 Presence of unspecified artificial hip joint; Z80.9 Family history of malignant neoplasm, unspecified; Z83.3 Family history of diabetes mellitus; Z83.79 Family history of other diseases of the digestive system; Z82.49 Family history of ischemic heart disease and other diseases of the circulatory system; Z87.891 Personal history of nicotine dependence; Z79.899 Other long term (current) drug therapy

== ENCOUNTER 2017-12-24 10:43 | Inpatient (IN) | payer BC, OTHER ==
[~2017-12-24] VITALS: Ht 162.6 cm; Wt 71.8 kg
[~2017-12-24 10:43] MED LIST changes: -CZR50 PO; +LOSA1TAB38 PO; +MULTCAP33 PO; +OMEG10002 PO
--- NOTE | 2017-12-24 10:59 | EMERGENCY ROOM VISIT NOTE ---
History Report prepared by Kellee: William Painting Under the Supervision of: Dr. Luiz Carmona D.O. First contact with patient: 10:46 Stated Complaint: HYPERTENSION History of Present Illness The patient is a 82 year old female who presents to the Emergency Room with complaints of persistent hypertension for the past few days. The patient has had a blood pressure of 200/100s, and she states that she had low oxygen earlier. The patient reports that she had a pacemaker placed in November. She states that she is not on oxygen at home, and she has a history of asthma. The patient notes that she gets dizzy and short of breath with standing. Source of History: patient Onset: the past few days Position: other (global) Symptom Intensity: 200/100s Quality: other (hypertension) Timing: other (persistent) Associated Symptoms: + SOB Note: Associated symptoms: dizziness Review of Systems See HPI for pertinent positives & negatives. A total of 10 systems reviewed and were otherwise negative. Past Medical & Surgical Medical Problems: (1) Asthma (2) HTN (hypertension) (3) HTN emergency, elevated tn, dizziness (4) Syncope and collapse Surgical Problems: (1) History of hip replacement (2) Pacemaker Family History Cancer Diabetes mellitus Gallbladder disease Heart disease Hypertension Social History Smoking Status: Former Smoker Drug Use: none Marital Status: Housing Status: lives alone Occupation Status: retired Current/Historical Medications Scheduled Acetaminophen (Tylenol), 500 MG PO BID Aspirin (Aspirin Ec), 81 MG PO DAILY Calcium/Vitamin D (Os-Efren 500 Plus D), 1 TAB PO DAILY Fluoxetine (Prozac), 20 MG PO BID Fluticasone Prop/Salmeterol (Advair Diskus 500/50 60 Dose), 1 PUFF INH BID Losartan Potassium (Cozaar), 100 MG PO DAILY Metoprolol Succ (Toprol Xl) (Toprol-Xl), 50 MG PO DAILY Multiple Vitamins W/ Minerals (Preservision Areds), 1 CAP PO BID Multivitamins/Minerals (Mvi With Minerals), 1 TAB PO DAILY Secor-3 Fatty Acids (Fish Oil), 1,000 MG PO BID Psyllium (Metamucil Original Textur), 1 TBS PO BID Simvastatin (Simvastatin), 20 MG PO DAILY Scheduled PRN Acetaminophen (Tylenol), 500-1,000 MG PO HS PRN for sleep/pain Ipratropium-Albuterol (Combivent Respimat), 1 PUFF INH QID PRN for Shortness of Breath Allergies Coded Allergies: No Known Allergies (Unverified , 12/24/17) Physical Exam Vital Signs Date Time Temp Pulse Resp B/P (MAP) Pulse Ox O2 Delivery O2 Flow Rate FiO2 12/24/17 14:08 62 16 204/103 93 Room Air 12/24/17 12:48 60 16 212/88 93 Room Air 12/24/17 11:07 69 12/24/17 10:53 36.9 77 17 213/93 94 Room Air 12/24/17 10:53 94 Room Air 12/24/17 10:53 94 Room Air Physical Exam GENERAL: Patient is awake, alert, and in no acute distress. Patient is resting comfortably and showing no signs of anxiety EYES: The conjunctivae are clear. The pupils are round and reactive. EARS, NOSE, MOUTH AND THROAT: The nose is without any evidence of any deformity. Mucous membranes are moist tongue is midline NECK: The neck is nontender and supple. RESPIRATORY: Normal respiratory effort is noted there is no evidence of wheezing rhonchi or rales CARDIOVASCULAR: Regular rate and rhythm noted there no murmurs rubs or gallops normal S1 normal S2 GASTROINTESTINAL: The abdomen is soft. Bowel sounds are present in all quadrants. Abdomen is nontender MUSCULOSKELETAL/EXTREMITIES: There is no evidence of gross deformity full range of motion is noted in the hips and shoulders SKIN: There is trace pedal edema bilaterally. NEUROLOGIC: Patient is awake alert and oriented x3 strength is symmetric patellar reflexes are 2+ bilaterally Medical Decision & Procedures ER Provider Diagnostic Interpretation: Radiology results as stated below per my review and radiologist interpretation: SINGLE VIEW CHEST CLINICAL HISTORY: Weakness. Change in mental status. FINDINGS: An AP, portable, upright chest radiograph is compared to study dated 12/07/2017. The examination is degraded by portable technique and patient rotation. A 2-lead cardiac pacemaker is unchanged in position and partially obscures the left upper chest. The heart is enlarged and there is atherosclerotic calcification of the thoracic aorta. The pulmonary vasculature is noncongested. Chronic interstitial thickening is similar to previous. No airspace consolidation, large pleural effusion, or pneumothorax is seen. The skeletal structures are osteopenic. The bony thorax is grossly intact. IMPRESSION: 1. Cardiomegaly and cardiac pacemaker. There is no radiographic evidence of congestive failure. 2. No airspace consolidation or pleural effusion is identified. Electronically signed by: Ronny Ordonez M.D. 12/24/2017 11:25 AM Dictated Date/Time: 12/24/2017 11:24 AM Laboratory Results 12/24/17 11:00 Red Blood Count 3.97, Mean Corpuscular Volume 91.2, Mean Corpuscular Hemoglobin 30.2, Mean Corpuscular Hemoglobin Concent 33.1, Mean Platelet Volume 9.0, Neutrophils (%) (Auto) 65.2, Lymphocytes (%) (Auto) 21.5, Monocytes (%) (Auto) 8.5, Eosinophils (%) (Auto) 3.7, Basophils (%) (Auto) 0.8, Neutrophils # (Auto) 4.21, Lymphocytes # (Auto) 1.39, Monocytes # (Auto) 0.55, Eosinophils # (Auto) 0.24, Basophils # (Auto) 0.05 12/24/17 11:00 Test 12/24/17 11:00 12/24/17 12:55 White Blood Count 6.46 K/uL (4.8-10.8) Red Blood Count 3.97 M/uL (4.2-5.4) Hemoglobin 12.0 g/dL (12.0-16.0) Hematocrit 36.2 % (37-47) Mean Corpuscular Volume 91.2 fL (80-100) Mean Corpuscular Hemoglobin 30.2 pg (25-34) Mean Corpuscular Hemoglobin Concent 33.1 g/dl (32-36) Platelet Count 201 K/uL (130-400) Mean Platelet Volume 9.0 fL (7.4-10.4) Neutrophils (%) (Auto) 65.2 % Lymphocytes (%) (Auto) 21.5 % Monocytes (%) (Auto) 8.5 % Eosinophils (%) (Auto) 3.7 % Basophils (%) (Auto) 0.8 % Neutrophils # (Auto) 4.21 K/uL (1.4-6.5) Lymphocytes # (Auto) 1.39 K/uL (1.2-3.4) Monocytes # (Auto) 0.55 K/uL (0.11-0.59) Eosinophils # (Auto) 0.24 K/uL (0-0.5) Basophils # (Auto) 0.05 K/uL (0-0.2) RDW Standard Deviation 43.9 fL (36.4-46.3) RDW Coefficient of Variation 13.2 % (11.5-14.5) Immature Granulocyte % (Auto) 0.3 % Immature Granulocyte # (Auto) 0.02 K/uL (0.00-0.02) Prothrombin Time 10.5 SECONDS (9.0-12.0) Prothromb Time International Ratio 1.0 (0.9-1.1) Activated Partial Thromboplast Time 24.5 SECONDS (21.0-31.0) Partial Thromboplastin Ratio 0.9 Anion Gap 6.0 mmol/L (3-11) Est Creatinine Clear Calc Drug Dose 39.3 ml/min Estimated GFR () 53.4 Estimated GFR (Non- 46.1 BUN/Creatinine Ratio 14.0 (10-20) Calcium Level 9.0 mg/dl (8.5-10.1) Magnesium Level 2.1 mg/dl (1.8-2.4) Total Bilirubin 0.7 mg/dl (0.2-1) Direct Bilirubin 0.2 mg/dl (0-0.2) Aspartate Amino Transf (AST/SGOT) 17 U/L (15-37) Alanine Aminotransferase (ALT/SGPT) 21 U/L (12-78) Alkaline Phosphatase 107 U/L (45-117) Troponin I 0.080 ng/ml (0-0.045) Pro-B-Type Natriuretic Peptide 2651 pg/ml (0-1800) Total Protein 6.6 gm/dl (6.4-8.2) Albumin 3.2 gm/dl (3.4-5.0) Thyroid Stimulating Hormone (TSH) 2.400 uIu/ml (0.300-4.500) Urine Color YELLOW Urine Appearance CLEAR (CLEAR) Urine pH 7.5 (4.5-7.5) Urine Specific [place] 1.015 (1.000-1.030) Urine Protein NEG (NEG) Urine Glucose (UA) NEG (NEG) Urine Ketones NEG (NEG) Urine Occult Blood NEG (NEG) Urine Nitrite NEG (NEG) Urine Bilirubin NEG (NEG) Urine Urobilinogen NEG (NEG) Urine Leukocyte Esterase NEG (NEG) Laboratory results per my review.b Medications Administered Medications (Trade) Dose Ordered Sig/Jd Route Start Time Stop Time Status Last Admin Dose Admin Furosemide (Lasix Inj) 40 mg NOW STAT IV 12/24/17 13:52 12/24/17 13:53 DC 12/24/17 14:07 40 MG Nitroglycerin (Nitroglycerin 2% Oint) 0.5 inch NOW ONCE EXT 12/24/17 14:00 12/24/17 14:01 DC 12/24/17 14:08 0.5 INCH ECG Per My Interpretation Indication: other (hypertension) Rate (beats per minute): 75 Rhythm: other (Atrial paced) Findings: paced rhythm, other (No PVC. No acute ST segment abnormality) Comparison ECG Date: 12/07/17 Change: Paced rhythm has replaced sinus ED Course 1046: The patient was evaluated in room C9. A complete history and physical examination were performed. 1352: Lasix 40mg IV 1353: I discussed the patient's case with Dr. Pauly DUARTE Hospitalist. The patient will be evaluated for further management. 1357: Upon reevaluation, the patient is doing okay. I discussed results and treatment plan with her. She verbalizes agreement and understanding. The patient will be evaluated for further management and care. 1400: Nitroglycerin 0.5inch EXT Medical Decision Differential diagnosis: Etiologies such as metabolic, infection, hypo/hyperglycemia, electrolyte abnormalities, cardiac sources, intracerebral event, toxicologic, neurologic, as well as others were entertained. Nursing notes reviewed. Additional history is obtained for the patient's family members. The patient is an 82-year-old female who presented to the emergency department for an evaluation elevated blood pressure. The patient was seen in our facility recently for similar complaints. She was found to have a mildly elevated troponin on previous visits. It appears to be somewhat worsened today. Patient was treated with nitroglycerin paste as well as IV Lasix. She was reevaluated multiple times. I discussed patient's laboratory and radiographic studies with her. I also discussed her condition with the on-call [facility] hospitalist. They have agreed to evaluate patient in the emergency department for further management and disposition. Medication Reconcilliation Current Medication List: was personally reviewed by me Blood Pressure Screening Patient's blood pressure: Elevated blood pressure Monitored by the hospitalist Consults Time Called: [id number] Consulting Physician: Dr. Pauly DUARTE Hospitalist Returned Call: [phone] I discussed the patient's case with Dr. Pauly DUARTE Hospitalist. The patient will be evaluated for further management. Impression Primary Impression: Dizziness Additional Impressions: Hypertensive emergency Elevated troponin Scribe Attestation The scribe's documentation has been prepared under my direction and personally reviewed by me in its entirety. I confirm that the note above accurately reflects all work, treatment, procedures, and medical decision making performed by me. Departure Information Dispostion Being Evaluated By Hospitalist Referrals Chito Dunbar M.D. (PCP) Problem Qualifiers
[2017-12-24 11:09] LABS: BASO % 0.8 %; BASO ABS # 0.05 K/uL (0-0.2); EOS % 3.7 %; EOS ABS # 0.24 K/uL (0-0.5); HEMATOCRIT 36.2 % (37-47); IG# 0.02 K/uL (0.00-0.02); LYMPH % 21.5 %; LYMPH ABS # 1.39 K/uL (1.2-3.4); MEAN CELL VOLUME 91.2 fL (80-100); MEAN CORPUSCULAR HEMOGLOBIN 30.2 pg (25-34); MEAN CORPUSCULAR HGB CONC 33.1 g/dl (32-36); MONO % 8.5 %; MONO ABS # 0.55 K/uL (0.11-0.59); NEUT % 65.2 %; NEUT ABS # 4.21 K/uL (1.4-6.5); PLATELET COUNT 201 K/uL (130-400); RED CELL DISTRIBUTION WIDTH CV 13.2 % (11.5-14.5); RED CELL DISTRIBUTION WIDTH SD 43.9 fL (36.4-46.3); WHITE BLOOD COUNT 6.46 K/uL (4.8-10.8)
--- NOTE | 2017-12-24 11:26 | DIAGNOSTIC IMAGING REPORT ---
SINGLE VIEW CHEST CLINICAL HISTORY: Weakness. Change in mental status. FINDINGS: An AP, portable, upright chest radiograph is compared to study dated 12/07/2017. The examination is degraded by portable technique and patient rotation. A 2-lead cardiac pacemaker is unchanged in position and partially obscures the left upper chest. The heart is enlarged and there is atherosclerotic calcification of the thoracic aorta. The pulmonary vasculature is noncongested. Chronic interstitial thickening is similar to previous. No airspace consolidation, large pleural effusion, or pneumothorax is seen. The skeletal structures are osteopenic. The bony thorax is grossly intact. IMPRESSION: 1. Cardiomegaly and cardiac pacemaker. There is no radiographic evidence of congestive failure. 2. No airspace consolidation or pleural effusion is identified. Electronically signed by: Ronny Ordonez M.D. 12/24/2017 11:25 AM Dictated Date/Time: 12/24/2017 11:24 AM
[2017-12-24 11:27] LABS: ALBUMIN 3.2 gm/dl (3.4-5.0); CREATININE 1.1 mg/dl (0.60-1.20); POTASSIUM 3.9 mmol/L (3.5-5.1)
[2017-12-24 11:32] LABS: PTT PATIENT 24.5 SECONDS (21.0-31.0)
[2017-12-24] MEDS ORDERED: ASPI81TA28 PO (11:35)
[2017-12-24] MEDS ORDERED: ACET-1256 PO (11:35)
[2017-12-24] MEDS ORDERED: PSYL48.58 PO (11:38)
[2017-12-24] MEDS ORDERED: METO50TA8 PO (11:38)
[2017-12-24 11:49] LABS: TOTAL PROTEIN 6.6 gm/dl (6.4-8.2)
[2017-12-24] MEDS ORDERED: FUROSEMIDE 40 MG/4 ML VIAL IV STA (13:52)
[2017-12-24] MEDS ORDERED: NITROGLYCERIN 2% OINTMENT 30GM TUBE EXT ONE (14:00)
[2017-12-24] MEDS ORDERED: ONDANSETRON INJ 2 MG/ML 2 ML VIAL IV PRN (14:30)
[2017-12-24] MEDS ORDERED: ACETAMINOPHEN 325 MG TAB PO PRN (14:30)
[2017-12-24] MEDS ORDERED: IPRATROPIUM BROMIDE/ALBUTEROL respimat INH INH PRN (14:30)
[2017-12-24] MEDS ORDERED: MAGNESIUM HYDROXIDE SUSP 30 ML UDC PO PRN (14:30)
[2017-12-24] MEDS ORDERED: ALUMINUM/MAGNESIUM/SIMETH (MAALOX MAX) 30 ML UDC PO PRN (14:30)
[2017-12-24] MEDS ORDERED: POLYETHYLENE (MIRALAX) 17 GM PACK PO PRN (14:30)
[2017-12-24] MEDS ORDERED: ZOLPIDEM TARTRATE 5 MG TAB PO PRN (14:30)
[2017-12-24] MEDS ORDERED: METOPROLOL TARTRATE 25 MG TAB PO STA (14:36)
[2017-12-24 14:45] VITALS: O2SAT 93; Ht 162.6 cm; Wt 71.8 kg
--- NOTE | 2017-12-24 14:50 | History and Physical ---
History & Physical Date of Service Dec 24, 2017. History & Physical HTN emergency, elevated tn, dizziness, [id number]
[2017-12-24] MEDS ORDERED: METOPROLOL TARTRATE 50 MG TAB PO STA (14:57)
--- NOTE | 2017-12-24 15:28 | HISTORY & PHYSICAL EXAMINATION ---
DATE OF ADMISSION: 12/24/2017 This is level 3 inpatient admission, 35 minutes. CHIEF COMPLAINT: Dizziness and significant high blood pressure. HISTORY OF PRESENT ILLNESS: The patient is an 82-year-old white female with a significant past medical history of syncope and bradycardia status post pacemaker, history of hypertension coming to the hospital Emergency Department because of the above chief complaint. The patient was admitted to this hospital in 10/25/2017. She was having had dizziness, accelerated hypertension and was found to have bradycardia and she was collapsed. There was intermittent bradycardia which caused syncope. Cardiology, Dr. Hanson saw the patient, pacemaker was placed. The patient was on Metoprolol, which was increased to 100 mg in previous admission. The patient was discharged to home and follow up with PCP. After discharge, the patient stayed in the personal care facility which was in [facility]. She complained about frequent feeling of dizziness and was to follow up with PCP, but did not have blood pressure checked. In the [facility] today, patient checked her blood pressure, which was found to have significant high, up to 200/100. Therefore, she was sent to the hospital Emergency Room. Per report, hypertension has been several days, associated with dizziness. She was feeling shortness of breath when standing up. In the Emergency Room, she was found in accelerated high blood pressure, which up to 204/103. ED physician gave her 1 dose of Lasix and nitro paste. She was found troponin minimal elevation at 0.08. The patient denied chest pain, palpitation, lower extremity swelling. Denied cough, sputum, wheezing or hemoptysis. Denied nausea, vomiting, abdominal pain, diarrhea, constipation. Denied dysuria, urgency, or frequencies. Denied facial droop, slurry speeches or local weakness. Denied double vision, blurry vision or syncope. PAST MEDICAL HISTORY: Like I mentioned in the above which include asthma, hypertension, syncope and collapse. PAST SURGICAL HISTORY: History of hip replacement, history of pacemaker. ALLERGIES: No known drug allergies. FAMILY HISTORY: Include cancer, diabetic, gallbladder disease, heart disease and hypertension. SOCIAL HISTORY: The patient was a former smoker. Denied alcohol abuse disorder, denied illicit drug abuse. The patient is , currently lives in [facility]. MEDICATIONS: Taking at home include Tylenol 500 mg p.o. b.i.d., aspirin 81 mg p.o. daily, Os-Efren 500 one tab p.o. daily, Prozac 20 mg p.o. b.i.d., Advair 500/50 one puff b.i.d. inhale, losartan 100 mg p.o. daily, metoprolol 50 mg p.o. daily, multiple vitamin 1 tab p.o. b.i.d., simvastatin 20 mg p.o. daily. As-needed medicines include Tylenol 1 tab p.o. p.r.n. for sleep, Combivent inhaler 1 puff inhaled q.i.d. for shortness of breath. PHYSICAL EXAMINATION: VITAL SIGNS: Temperature 36.7, pulse 77, respiration rate 17, blood pressure 113/93, pulse ox was 94% on room air. GENERAL: The patient is a white female, awake, alert and oriented, conversational, follows all commands. HEAD: Normocephalic. EYES: Pupils equal, round responds to light. EARS: Ear was normal. NOSE: Normal. NECK: Supple. Thyroid no enlargement. Trachea in midline. HEART: Regular rhythm S1, S2, has no murmur. LUNGS: Decreased breathing sounds. There was no wheezing, rhonchi or crackles. ABDOMEN: Soft, nontender. Bowel sound was positive. Bilateral CVA was nontender. GENITOURINARY AND RECTAL: Deferred. EXTREMITIES: Bilateral lower extremity, no swelling. Homans sign was negative. Calf was nontender. NEUROLOGICAL EVALUATION: Cranial nerves II-XII was intact. There was no local deficits. SKIN: Warm, dry and no open wound. LABORATORY STUDIES: In the Emergency Room, lab study was done: WBC 6.4, hemoglobin 12, platelets 201. BUN 15, creatinine 1.1. Sodium 140, potassium 3.9, blood glucose 114. IMAGING STUDIES: Chest x-ray studies show cardiomegaly and cardiac pacemaker. No acute disease, no pleural effusion. ASSESSMENT AND PLAN: An 82-year-old white female with the conditions below: 1. Possible hypertension emergency with a significantly elevated blood pressure associated with minimal elevated troponin. 2. Elevated troponin, possible demanding ischemia from accelerated hypertension. 3. Recent pacemaker because of bradycardia. 4. Recent collapse. 5. History of asthma. EKG was reviewed. It was paced rhythm. There were no ST-T phase changes. PLAN: The patient has a significantly elevated blood pressure. She was having the same problem in previous admission, in last admission blood pressure was up to 163/100. the medications of metoprolol was double dosed. She was on Toprol 50 and that was increased to 100 Losartan was continued, At this time, the patient has significantly elevated blood pressure associated with elevated cardiac enzyme and troponin. Therefore, I feel patient need to have comprehensive evaluation to rule out difficult controlled hypertension and intractable hypertension. For the problems include Conn syndrome, pheochromocytoma, and renal artery stenosis, etc. Therefore, I am checking renin, Aldactone, renal artery ultrasound to rule out renal artery stenosis. I also check plasma metanephrine and 24-hour metanephrine, and Cortisol level, I will continue losartan 100 mg p.o. daily, and metoprolol to 100 mg p.o. daily. Because the patient has pacer placed; therefore, do not need to worry about bradycardic. education patient and family about medicine compliance. For the elevated troponin, I will trend troponin x2 set more. Check EKG tomorrow morning. I will not check an echocardiogram because the patient has recent echocardiogram done in last admission, which shows normal LVEF. For other medical conditions include dyslipidemia, asthma, anxiety, will continue home medication. We discussed with patient and family about the care plan, son and his friend at the bedside. I answered all the questions. The patient is full code. Deep venous thrombosis prophylaxis is covered. MTDD
[2017-12-24 16:27] VITALS: BP 209/80; PULSE 60; TEMP 37.1; O2SAT 93
--- NOTE | 2017-12-24 18:02 | DIAGNOSTIC IMAGING REPORT ---
DOPPLER ULTRASOUND OF THE RENAL ARTERIES CLINICAL HISTORY: Hypertension. COMPARISON STUDY: No priors. TECHNIQUE: Doppler sonography of the renal arteries was performed to assess renal artery stenosis. Images are reviewed in the transverse and longitudinal planes. FINDINGS: The kidneys appear normal in size and echotexture. The right kidney measures 10.0 cm and length and the left kidney measures 9.1 cm in length. There is no hydronephrosis. On the right, intrarenal arterial resistive indices range from 0.68 to 0.77. Intrarenal arterial waveforms are normal with brisk upstrokes. The right renal arterial waveform is normal, and velocities within the right renal artery measure up to 97 cm/sec. The right renal vein is patent. On the left, intrarenal arterial resistive indices range from 0.73 to 0.81. Intrarenal arterial waveforms are normal with brisk upstrokes. The left renal arterial waveform is normal, and velocities within the left renal artery measure up to 105 cm/sec. The left renal vein is patent. The abdominal aorta is patent. Velocities within the abdominal aorta measure up to 137 cm/s. IMPRESSION: There is no sonographic evidence of renal artery stenosis. Electronically signed by: Ronny Ordonez M.D. 12/24/2017 6:00 PM Dictated Date/Time: 12/24/2017 5:59 PM
[2017-12-24 18:10] VITALS: BP 212/92; PULSE 62
[2017-12-24] MEDS: HydrALAZINE HCL 20 MG/ML VIAL IV. PRN (18:28)
[2017-12-24 18:50] VITALS: BP 136/64; PULSE 66
[2017-12-24 19:26] VITALS: BP 136/65; PULSE 66; TEMP 36.5; O2SAT 94
[2017-12-24] MEDS: PSYLLIUM 58.6% PWD PACK S\\F PO SCH ×2 (21:00→21:22)
[2017-12-24] MEDS ORDERED: METOPROLOL TARTRATE 25 MG TAB PO SCH (21:00)
[2017-12-24] MEDS ORDERED: MINERALS PO SCH (21:00)
[2017-12-24] MEDS ORDERED: MULTIPLE VITAMINS PO SCH (21:00)
[2017-12-24] MEDS: OMEGA-3 (PURIFIED FISH OIL) 1 GM CAP PO SCH (21:18)
[2017-12-24] MEDS: SIMVASTATIN 20 MG TAB PO SCH (21:18)
[2017-12-24] MEDS: FLUOXETINE HCL 20 MG CAP PO SCH (21:18)
[2017-12-24] MEDS: FLUTICASONE/SALMETEROL (ADVAIR) 500/50 INH 14 PUFF INH SCH (21:19)
[2017-12-24] MEDS: ENOXAPARIN 40 MG/0.4 ML SYR SC SCH (21:19)
[2017-12-24 22:58] VITALS: BP 152/65; PULSE 66; TEMP 37.1; O2SAT 93
[2017-12-25] VITALS (10 sets, daily range): BP systolic 139–193; BP diastolic 63–78; PULSE 63–74; TEMP 36.6–37.1; O2SAT 90–93
[2017-12-25] MEDS: HydrALAZINE HCL 20 MG/ML VIAL IV. PRN (05:30)
[2017-12-25] MEDS: FLUTICASONE/SALMETEROL (ADVAIR) 500/50 INH 14 PUFF INH SCH ×2 (08:44→20:14)
[2017-12-25] MEDS: CALCIUM 600MG + VIT D 400 IU TAB PO SCH (08:45)
[2017-12-25] MEDS: LOSARTAN POTASSIUM 50 MG TAB PO SCH (08:46)
[2017-12-25] MEDS: ASPIRIN 81 MG ECTAB PO SCH (08:46)
[2017-12-25] MEDS: PSYLLIUM 58.6% PWD PACK S\\F PO SCH ×2 (08:47→20:15)
[2017-12-25] MEDS: FLUOXETINE HCL 20 MG CAP PO SCH ×2 (08:47→20:15)
[2017-12-25] MEDS: CEROVITE ADV FORMULA TAB PO SCH (08:47)
[2017-12-25] MEDS: OMEGA-3 (PURIFIED FISH OIL) 1 GM CAP PO SCH ×2 (08:48→20:16)
[2017-12-25] MEDS: METOPROLOL SUCC 50MG EXT REL TAB PO SCH (08:48)
[2017-12-25] MEDS ORDERED: METOPROLOL SUCC 50MG EXT REL TAB PO SCH (09:00)
[2017-12-25 10:37] LABS: HEMATOCRIT 37.1 % (37-47); HEMOGLOBIN 12.4 g/dL (12.0-16.0); MEAN CELL VOLUME 91.2 fL (80-100); MEAN CORPUSCULAR HEMOGLOBIN 30.5 pg (25-34); MEAN CORPUSCULAR HGB CONC 33.4 g/dl (32-36); MEAN PLATELET VOLUME 9.7 fL (7.4-10.4); PLATELET COUNT 188 K/uL (130-400); RED CELL DISTRIBUTION WIDTH CV 13.5 % (11.5-14.5); RED CELL DISTRIBUTION WIDTH SD 44.4 fL (36.4-46.3); WHITE BLOOD COUNT 8.76 K/uL (4.8-10.8)
[2017-12-25 11:03] LABS: CALCIUM 9.2 mg/dl (8.5-10.1); CREATININE 1.07 mg/dl (0.60-1.20); POTASSIUM 3.5 mmol/L (3.5-5.1)
[2017-12-25 14:28] LABS: INFLUENZA A PCR Neg for Influ A (NEG); INFLUENZA B PCR Neg for Influ B (NEG)
--- NOTE | 2017-12-25 15:40 | Hospitalist Progress Note ---
Hospitalist Progress Note Date of Service Dec 25, 2017. (Dina Tavera ., MCKENZIE-C) Subjective Pt evaluation today including: conversation w/ patient, physical exam, chart review, lab review, review of inpatient medication list Pain: None PO Intake: Tolerating PO diet Voiding: no voiding problems Patient reports feeling well, and in fact states this is the best she's felt for the last few weeks. She denies any dizziness today, but states that this usually occurs with standing anyway. She states she had some chills this morning but otherwise denies complaints. The patient denies fevers, sweats, chest pain, palpitations, claudication, cough, wheezing, shortness of breath, nausea, vomiting, abdominal pain, dysuria, hematuria, urinary retention, paralysis, weakness, numbness and tingling. Additional Comments: See HPI for pertinent positives and negatives. All other systems reviewed and negative. (Dina Tavera ., MCKENZIE-C) Objective Vital Signs Date Time Temp Pulse Resp B/P (MAP) Pulse Ox O2 Delivery O2 Flow Rate FiO2 12/25/17 12:00 Room Air 12/25/17 11:25 36.9 66 16 93 Room Air 12/25/17 11:00 169/70 (103) 163/71 (101) 171/78 (109) 12/25/17 09:45 Room Air 12/25/17 07:37 36.8 66 16 139/70 (93) 92 Room Air 12/25/17 04:48 36.6 69 18 193/72 (112) 93 Room Air 12/25/17 04:00 Room Air 12/25/17 00:00 Room Air 12/24/17 22:58 37.1 66 18 152/65 (94) 93 Room Air 12/24/17 19:26 36.5 66 18 136/65 (88) 94 Room Air 12/24/17 19:20 Room Air 12/24/17 18:50 66 136/64 (88) 12/24/17 18:10 62 212/92 (132) 12/24/17 17:18 Room Air 12/24/17 16:27 37.1 60 16 209/80 (123) 93 Room Air 12/24/17 15:48 63 16 204/93 92 (Dina Tavera PA-C) Physical Exam Notes: General appearance: Well-developed, well-nourished, no apparent distress Head: Normocephalic, atraumatic Eyes: Normal inspection, PERRL, EOMI ENT: Normal ENT inspection, hearing grossly normal, pharynx normal Neck: Supple, no JVD, trachea midline Respiratory/Chest: +Decreased breath sounds, tight. Lungs clear to auscultation, no respiratory distress Cardiovascular: Regular rate & rhythm, no gallop, no murmur Abdomen/GI: Normal bowel sounds, non-tender, soft Extremities/Musculoskeletal: Normal inspection, no calf tenderness, no pedal edema Neurological/Psych: +Oriented x 3 during my exam, but does seem to get confused regarding timing of recent events. Alert, normal mood/affect, oriented x 3 Skin: Normal color, warm/dry, no rash (Dina Tavera, PA-C) Laboratory Results Last 24 Hours Test 12/24/17 20:31 12/25/17 02:19 12/25/17 07:59 12/25/17 08:00 Troponin I 0.092 ng/ml 0.089 ng/ml 0.089 ng/ml Triglycerides Level 102 mg/dl Cholesterol Level 150 mg/dl HDL Cholesterol 70 mg/dl LDL Cholesterol, Calculated 60 mg/dl VLDL Cholesterol, Calculated 20 mg/dl Cholesterol/HDL Ratio 2.1 Test 12/25/17 09:17 12/25/17 13:35 12/25/17 14:25 White Blood Count 8.76 K/uL Red Blood Count 4.07 M/uL Hemoglobin 12.4 g/dL Hematocrit 37.1 % Mean Corpuscular Volume 91.2 fL Mean Corpuscular Hemoglobin 30.5 pg Mean Corpuscular Hemoglobin Concent 33.4 g/dl RDW Standard Deviation 44.4 fL RDW Coefficient of Variation 13.5 % Platelet Count 188 K/uL Mean Platelet Volume 9.7 fL Sodium Level 137 mmol/L Potassium Level 3.5 mmol/L Chloride Level 101 mmol/L Carbon Dioxide Level 28 mmol/L Anion Gap 8.0 mmol/L Blood Urea Nitrogen 19 mg/dl Creatinine 1.07 mg/dl Est Creatinine Clear Calc Drug Dose 38.1 ml/min Estimated GFR () 55.2 Estimated GFR (Non- 47.6 BUN/Creatinine Ratio 17.5 Random Glucose 142 mg/dl Calcium Level 9.2 mg/dl Influenza Type A (RT-PCR) Neg for Influ A Influenza Type B (RT-PCR) Neg for Influ B Troponin I 0.086 ng/ml (Dina Tavera ., PA-C) Assessment and Plan 82 y/o female with a history of HTN, HLD, SSS s/p pacemaker, asthma, anxiety, and CKD stage III who presents with dizziness and elevated blood pressure. Hypertensive urgency--improving -Admit to telemetry. No acute events overnight. Pt in sinus rhythm with HR in 60s. -Metoprolol succinate increased to 100 mg PO qd -Continue losartan 100 mg PO qd -Cover with hydralazine 10 mg IV q6h prn SBP >180 -Renal ultrasound negative for renal artery stenosis -Undergoing 24 hour urine to r/o pheo Dizziness--improving -Interrogate pacemaker. Did have episode of NSVT in November per outpatient records -May be due to acute illness, pt with chills today. Flu swab negative, check PCR Elevated troponin--stable, likely demand ischemia -Troponin remains stable around 0.9: 0.080-->0.092-->0.089-->0.089 HLD -Continue Zocor 20 mg PO qd Asthma--lungs tight on exam -DuoNebs QIDR and q2h prn SOB/wheezing -Continue Advair BID Anxiety -Continue Prozac 20 mg PO BID DVT prophylaxis -Enoxaparin 40 mg SC q24h Code Status -Level I, FULL RESUSCITATION STATUS (Dina Tavera ., PA-C) Attending Attestation: Pt seen/examined, chart reviewed, discharge care plan d/w MCKENZIE Tavera. I agree w/ the mackey components of her documentation. Pt w/o complaints. Feels better with respect to dizziness but has cough and chills this am . No cp, no dyspnea. Tele normal. VSS; BPs still high gen - nad neck - no JVD heart - RRR lungs - poor air movement, course BS, no rales abd - soft ext - no edema A/P: 1. dizziness - perhaps related to elevated BP - improved. 2. hypertensive urgency - improving. 3. HTN - agree with titration of BB; if no improvement with such then add CCB. 4. asthma - possibly with early exacerbation - start nebs. 5. chills - check PCR flu. u/a wnl. interrogate pacer Corwin Thompson MD (Corwin Thompson MD)
[2017-12-25] MEDS: ALBUT/IPRATROP 3MG/0.5MG NEB 3 ML VIAL INH SCH ×2 (16:00→19:51)
[2017-12-25] MEDS ORDERED: NIFEdipine 30 MG CR TAB PO STA (19:22)
[2017-12-25] MEDS: ENOXAPARIN 40 MG/0.4 ML SYR SC SCH (20:14)
[2017-12-25] MEDS: SIMVASTATIN 20 MG TAB PO SCH (20:15)
[2017-12-26] VITALS (13 sets, daily range): BP systolic 118–154; BP diastolic 66–78; PULSE 60–80; TEMP 36.6–36.8; O2SAT 93–99
[2017-12-26 06:32] LABS: HEMATOCRIT 36.4 % (37-47); HEMOGLOBIN 11.9 g/dL (12.0-16.0); MEAN CELL VOLUME 92.6 fL (80-100); MEAN CORPUSCULAR HEMOGLOBIN 30.3 pg (25-34); MEAN CORPUSCULAR HGB CONC 32.7 g/dl (32-36); MEAN PLATELET VOLUME 9.3 fL (7.4-10.4); PLATELET COUNT 198 K/uL (130-400); RED CELL DISTRIBUTION WIDTH CV 13.4 % (11.5-14.5); RED CELL DISTRIBUTION WIDTH SD 45.8 fL (36.4-46.3); WHITE BLOOD COUNT 6.41 K/uL (4.8-10.8)
[2017-12-26 07:01] LABS: CALCIUM 8.9 mg/dl (8.5-10.1); CREATININE 1.2 mg/dl (0.60-1.20); POTASSIUM 3.5 mmol/L (3.5-5.1)
[2017-12-26] MEDS: ALBUT/IPRATROP 3MG/0.5MG NEB 3 ML VIAL INH SCH ×4 (07:05→19:33)
[2017-12-26] MEDS: FLUTICASONE/SALMETEROL (ADVAIR) 500/50 INH 14 PUFF INH SCH ×2 (07:36→20:35)
[2017-12-26] MEDS: CALCIUM 600MG + VIT D 400 IU TAB PO SCH (07:37)
[2017-12-26] MEDS: ASPIRIN 81 MG ECTAB PO SCH (07:37)
[2017-12-26] MEDS: PSYLLIUM 58.6% PWD PACK S\\F PO SCH ×2 (07:37→20:36)
[2017-12-26] MEDS: CEROVITE ADV FORMULA TAB PO SCH (07:37)
[2017-12-26] MEDS: OMEGA-3 (PURIFIED FISH OIL) 1 GM CAP PO SCH ×2 (07:37→20:35)
[2017-12-26] MEDS: NIFEdipine 30 MG CR TAB PO SCH (07:38)
[2017-12-26] MEDS: METOPROLOL SUCC 50MG EXT REL TAB PO SCH (07:38)
[2017-12-26] MEDS: FLUOXETINE HCL 20 MG CAP PO SCH ×2 (07:38→20:35)
[2017-12-26] MEDS: LOSARTAN POTASSIUM 50 MG TAB PO SCH (07:41)
[2017-12-26] MEDS ORDERED: METHYLPREDNISOLONE IV 125 MG in SYRINGE 0 ML IV ONE (13:30)
--- NOTE | 2017-12-26 13:34 | Hospitalist Progress Note ---
Hospitalist Progress Note Date of Service Dec 26, 2017. (Dina Tavera ., MCKENZIE-C) Subjective Pt evaluation today including: conversation w/ patient, physical exam, chart review, lab review, review of inpatient medication list Pain: None PO Intake: Tolerating PO diet Voiding: no voiding problems Patient reports feeling well. She states she did have some minimal dizziness earlier this morning after moving around too quickly, but this is now resolved. She does report a productive cough with clear sputum but denies any wheezing or shortness of breath. Patient again complains of chills but no fevers, unclear if pt truly having chills or rather just feeling cold. The patient denies fevers, sweats, chest pain, palpitations, claudication, wheezing, shortness of breath, nausea, vomiting, abdominal pain, dysuria, hematuria, urinary retention, paralysis, weakness, numbness and tingling. Additional Comments: See HPI for pertinent positives and negatives. All other systems reviewed and negative. (Dina Tavera ., MCKENZIE-C) Objective Vital Signs Date Time Temp Pulse Resp B/P (MAP) Pulse Ox O2 Delivery O2 Flow Rate FiO2 12/26/17 12:00 Nasal Cannula 2.0 12/26/17 11:22 70 16 94 Room Air 12/26/17 11:00 80 118/68 (85) Oxymask 79 129/69 (89) 71 130/76 (94) 12/26/17 08:00 Nasal Cannula 2.0 99 12/26/17 07:55 36.7 60 16 138/73 (94) 99 12/26/17 07:05 64 16 98 Room Air 12/26/17 04:15 Nasal Cannula 2.0 12/26/17 02:46 36.6 60 17 154/70 (98) 97 Nasal Cannula 2.0 12/25/17 23:15 Nasal Cannula 2.0 12/25/17 23:12 65 163/66 (98) 12/25/17 23:11 68 159/69 (99) 12/25/17 23:10 36.8 63 18 161/70 (100) 90 Room Air 12/25/17 20:15 Room Air 12/25/17 19:51 74 16 93 Room Air 12/25/17 19:08 37.0 64 18 168/75 (106) 92 Room Air 12/25/17 15:20 Room Air 12/25/17 15:00 37.1 65 18 182/63 (102) 93 Room Air 169/65 (99) 165/74 (104) (Dina Tavera PA-C) Physical Exam Notes: General appearance: Well-developed, well-nourished, no apparent distress Head: Normocephalic, atraumatic Eyes: Normal inspection, PERRL, EOMI ENT: Normal ENT inspection, hearing grossly normal, pharynx normal Neck: Supple, no JVD, trachea midline Respiratory/Chest: +Decreased breath sounds, tight, unchanged from yesterday. Lungs clear to auscultation, no respiratory distress Cardiovascular: Regular rate & rhythm, no gallop, no murmur Abdomen/GI: Normal bowel sounds, non-tender, soft Extremities/Musculoskeletal: Normal inspection, no calf tenderness, no pedal edema Neurological/Psych: Alert, normal mood/affect, oriented x 3 Skin: Normal color, warm/dry, no rash (Dina Tavera ., MCKENZIE-C) Laboratory Results Last 24 Hours Test 12/25/17 13:35 12/25/17 14:25 12/26/17 02:15 12/26/17 02:19 Influenza Type A (RT-PCR) Neg for Influ A Influenza Type B (RT-PCR) Neg for Influ B Troponin I 0.086 ng/ml Test 12/26/17 05:19 White Blood Count 6.41 K/uL Red Blood Count 3.93 M/uL Hemoglobin 11.9 g/dL Hematocrit 36.4 % Mean Corpuscular Volume 92.6 fL Mean Corpuscular Hemoglobin 30.3 pg Mean Corpuscular Hemoglobin Concent 32.7 g/dl RDW Standard Deviation 45.8 fL RDW Coefficient of Variation 13.4 % Platelet Count 198 K/uL Mean Platelet Volume 9.3 fL Sodium Level 139 mmol/L Potassium Level 3.5 mmol/L Chloride Level 101 mmol/L Carbon Dioxide Level 33 mmol/L Anion Gap 5.0 mmol/L Blood Urea Nitrogen 21 mg/dl Creatinine 1.20 mg/dl Est Creatinine Clear Calc Drug Dose 34.0 ml/min Estimated GFR () 48.1 Estimated GFR (Non- 41.5 BUN/Creatinine Ratio 17.8 Random Glucose 85 mg/dl Calcium Level 8.9 mg/dl (Tavera, Dina ., PA-C) Assessment and Plan 82 y/o female with a history of HTN, HLD, SSS s/p pacemaker, asthma, anxiety, and CKD stage III who presents with dizziness and elevated blood pressure. Hypertensive urgency--resolving -Admit to telemetry. No acute events overnight. Pt paced in the 60s -Continue metoprolol succinate 100 mg PO qd -Continue losartan 100 mg PO qd -Started on nifedipine 30 mg PO qd, BP now stable -Cover with hydralazine 10 mg IV q6h prn SBP >180 -Renal ultrasound negative for renal artery stenosis -Undergoing 24 hour urine to r/o pheo Dizziness--improving -Awaiting pacemaker interrogation. Did have episode of NSVT in November per outpatient records -Flu swab negative, PCR pending -Negative orthostatics -TSH WNL Elevated troponin--stable, likely demand ischemia -Troponin remains stable around 0.9: 0.080-->0.092-->0.089-->0.089 HLD -Continue Zocor 20 mg PO qd Asthma, possible early exacerbation--lungs tight on exam -Continue DuoNebs QIDR and q2h prn SOB/wheezing -Start Solu-Medrol 125 mg IV x1, then 60 mg IV q8h -Incentive spirometry -Continue Advair BID Anxiety -Continue Prozac 20 mg PO BID DVT prophylaxis -Enoxaparin 40 mg SC q24h Code Status -Level I, FULL RESUSCITATION STATUS Dispo -From [facility] -PT/OT evaluate and treat (Dina Tavera ., PA-C) Attending Attestation: Pt seen/examined, chart reviewed, discharge care plan d/w MCKENZIE Tavera. I agree w/ the mackey components of her documentation. feels better - dizziness resolved - tele normal overnight. main complaint is "bad cough". eating ok. VSS; BPs improved gen - nad neck - no JVD heart - RRR lungs - fairly extensive wheezing today; modestly better airation today abd - soft ext - no edema A/P: 1. dizziness - perhaps related to elevated BP at presentation - resolved. Orthostatics were negative. Awaiting pacer interrogation to ensure dizziness was not due to arrhythmia. 2. hypertensive urgency - resolved with much-improved BPs. 3. HTN - improved with titration of beta nahid + addition of nifedipine 30mg daily. 4. asthma w/ exacerbation - agree with steroids; cont nebs; cont incentive spirometry. 5. chills - checked PCR flu - negative. In light of asthma flare suspect other viral process at play. U/a negative. CXR w/o pneumonia. PT, OT evals - lives at [facility] - will need to be sure she is strong enough to return to personal care leave on tele Corwin Thompson MD (Corwin Thompson MD)
[2017-12-26] MEDS: SIMVASTATIN 20 MG TAB PO SCH (20:35)
[2017-12-26] MEDS: ENOXAPARIN 40 MG/0.4 ML SYR SC SCH (20:35)
[2017-12-26] MEDS: METHYLPREDNISOLONE IV 60 MG in SYRINGE 0 ML IV SCH (20:37)
[2017-12-27] VITALS (15 sets, daily range): BP systolic 144–185; BP diastolic 66–80; PULSE 63–86; TEMP 36.3–36.9; O2SAT 90–98
[2017-12-27] MEDS: METHYLPREDNISOLONE IV 60 MG in SYRINGE 0 ML IV SCH ×2 (05:28→13:37)
[2017-12-27 06:09] LABS: HEMATOCRIT 36.7 % (37-47); HEMOGLOBIN 12.5 g/dL (12.0-16.0); MEAN CELL VOLUME 89.1 fL (80-100); MEAN CORPUSCULAR HEMOGLOBIN 30.3 pg (25-34); MEAN CORPUSCULAR HGB CONC 34.1 g/dl (32-36); MEAN PLATELET VOLUME 9.2 fL (7.4-10.4); PLATELET COUNT 231 K/uL (130-400); RED CELL DISTRIBUTION WIDTH CV 13.1 % (11.5-14.5); RED CELL DISTRIBUTION WIDTH SD 42.9 fL (36.4-46.3); WHITE BLOOD COUNT 8.34 K/uL (4.8-10.8)
[2017-12-27 06:45] LABS: CALCIUM 9.5 mg/dl (8.5-10.1); CREATININE 1.17 mg/dl (0.60-1.20); POTASSIUM 3.8 mmol/L (3.5-5.1)
[2017-12-27] MEDS: ALBUT/IPRATROP 3MG/0.5MG NEB 3 ML VIAL INH SCH ×3 (07:02→15:50)
[2017-12-27] MEDS: NIFEdipine 30 MG CR TAB PO SCH (07:58)
[2017-12-27] MEDS: FLUTICASONE/SALMETEROL (ADVAIR) 500/50 INH 14 PUFF INH SCH ×2 (07:58→21:21)
[2017-12-27] MEDS: LOSARTAN POTASSIUM 50 MG TAB PO SCH (07:59)
[2017-12-27] MEDS: FLUOXETINE HCL 20 MG CAP PO SCH ×2 (07:59→21:22)
[2017-12-27] MEDS: CALCIUM 600MG + VIT D 400 IU TAB PO SCH (07:59)
[2017-12-27] MEDS: ASPIRIN 81 MG ECTAB PO SCH (07:59)
[2017-12-27] MEDS: PSYLLIUM 58.6% PWD PACK S\\F PO SCH ×2 (07:59→21:22)
[2017-12-27] MEDS: METOPROLOL SUCC 50MG EXT REL TAB PO SCH (08:00)
[2017-12-27] MEDS: CEROVITE ADV FORMULA TAB PO SCH (08:00)
[2017-12-27] MEDS: OMEGA-3 (PURIFIED FISH OIL) 1 GM CAP PO SCH (08:02)
--- NOTE | 2017-12-27 10:47 | DIAGNOSTIC IMAGING REPORT ---
HEAD WITHOUT CONTRAST (CT) CLINICAL HISTORY: 82 years-old Female with fall, hit left frontal region. Acute head injury status post fall. TECHNIQUE: Multiple axial CT images of the head were obtained without contrast. A dose lowering technique was utilized adhering to the principles of ALARA. CT DOSE: 946.74 mGy.cm COMPARISON: CT head 11/29/2017. FINDINGS: No acute intracranial hemorrhage, midline shift, intracranial mass, hydrocephalus, territorial ischemia or abnormal extra-axial collection. Moderate atrophy. Confluent areas of low-attenuation are noted throughout the white matter compatible with chronic microvascular ischemic changes. Cerebral vascular calcifications are seen at the level of the skull base. The calvarium is intact. The paranasal sinuses, mastoid air cells, and middle ear cavities are clear. Moderate size left frontal soft tissue hematoma measures 4.2 x 1.1 cm, just superior to the left orbit. Mild left periorbital soft tissue swelling. IMPRESSION: 1. No acute intracranial abnormality or calvarial fracture. 2. Moderate sized left supraorbital soft tissue hematoma with mild left periorbital soft tissue swelling. The above report was generated using voice recognition software. It may contain grammatical, syntax or spelling errors. Electronically signed by: Farooq Story M.D. 12/27/2017 10:46 AM Dictated Date/Time: 12/27/2017 10:43 AM
--- NOTE | 2017-12-27 10:49 | DIAGNOSTIC IMAGING REPORT ---
CERVICAL SPINE W/O CT DOSE: HISTORY: Trauma fall, hit head and has posterior neck pain TECHNIQUE: Multiaxial CT images of the cervical spine were performed and reformatted in the sagittal and coronal plane without the use of contrast. A dose lowering technique was utilized adhering to the principles of ALARA. COMPARISON: None. FINDINGS: Considerable degenerative change throughout the entire cervical region. This is most prominent from C3 through C6. No evidence for a compression deformity. Degenerative change of the C1-C2 articulation with no acute process. Transaxial images show no acute bony abnormality. There are degenerative changes of the posterior arch throughout. IMPRESSION: Considerable degenerative change. No acute bony abnormality. The above report was generated using voice recognition software. It may contain grammatical, syntax or spelling errors. Electronically signed by: Arben Aldana M.D. 12/27/2017 10:47 AM Dictated Date/Time: 12/27/2017 10:44 AM
--- NOTE | 2017-12-27 10:55 | DIAGNOSTIC IMAGING REPORT ---
L KNEE 3 VIEWS CLINICAL HISTORY: fall, left knee trauma. Pain. COMPARISON: None. DISCUSSION: The bones and joint spaces appear intact. There is no evidence of fracture, dislocation or bony disease. There is no evidence for soft tissue swelling. IMPRESSION: Negative study. The above report was generated using voice recognition software. It may contain grammatical, syntax or spelling errors. Electronically signed by: Arben Aldana M.D. 12/27/2017 10:54 AM Dictated Date/Time: 12/27/2017 10:53 AM
--- NOTE | 2017-12-27 13:00 | Hospitalist Progress Note ---
Hospitalist Progress Note Date of Service Dec 27, 2017. (Dina Tavera ., KISHANC) Subjective Pt evaluation today including: conversation w/ patient, physical exam, chart review, lab review, review of studies, review of inpatient medication list Pain: Headache PO Intake: Tolerating PO diet Voiding: no voiding problems The patient fell this morning. She states she was sitting in her chair in the back corner of her room. She states she was concerned that no one would find her back there. She saw her walker by the door, so she got up to get to her walker. She took a few steps and states she tripped and fell. She did hit her head and landed on her left side. The patient complains of some soreness over her left eye where she now has a hematoma. She otherwise denies pain. She does report a productive cough, as well as some intermittent wheezing and shortness of breath. The patient denies fevers, chills, sweats, chest pain, palpitations, claudication, nausea, vomiting, abdominal pain, dysuria, hematuria , urinary retention, paralysis, weakness, numbness and tingling. Additional Comments: See HPI for pertinent positives and negatives. All other systems reviewed and negative. (Dina Tavera ., KISHANC) Objective Vital Signs Date Time Temp Pulse Resp B/P (MAP) Pulse Ox O2 Delivery O2 Flow Rate FiO2 12/27/17 11:54 36.6 74 16 156/66 (96) 92 12/27/17 11:10 86 16 93 Room Air 12/27/17 09:40 36.6 68 20 173/75 (107) 94 Room Air 12/27/17 08:05 36.7 66 18 168/75 (106) 90 12/27/17 08:00 94 Room Air 12/27/17 07:02 84 16 96 Nasal Cannula 2.0 12/27/17 04:00 93 Room Air 12/27/17 03:10 36.9 63 18 144/72 (96) 98 Nasal Cannula 2.0 12/26/17 23:59 93 Room Air 12/26/17 23:15 36.7 67 18 126/66 (86) 93 Room Air 12/26/17 20:00 Room Air 12/26/17 19:33 67 16 93 Nasal Cannula 2.0 12/26/17 19:30 36.7 67 18 131/73 (92) 93 Nasal Cannula 2.0 12/26/17 16:00 Room Air 12/26/17 15:18 71 16 93 Room Air 12/26/17 15:03 69 124/71 (88) 12/26/17 15:02 70 135/78 (97) 12/26/17 15:00 36.8 63 21 139/74 (95) 96 Room Air (Dina Tavera .MCKENZIE-C) Physical Exam Notes: General appearance: Well-developed, well-nourished, no apparent distress Head: +Hematoma over left eyebrow. Normocephalic Eyes: Normal inspection, PERRL, EOMI ENT: Normal ENT inspection, hearing grossly normal, pharynx normal Neck: Supple, no JVD, trachea midline Respiratory/Chest: +Decreased breath sounds, poor air movement. Lungs clear to auscultation, no respiratory distress Cardiovascular: Regular rate & rhythm, no gallop, no murmur Abdomen/GI: Normal bowel sounds, non-tender, soft Extremities/Musculoskeletal: Normal inspection, no calf tenderness, no pedal edema Neurological/Psych: Alert, normal mood/affect, oriented x 3 Skin: Normal color, warm/dry, no rash (Dina Tavera ., PA-C) Laboratory Results Last 24 Hours Test 12/27/17 02:20 12/27/17 05:17 White Blood Count 8.34 K/uL Red Blood Count 4.12 M/uL Hemoglobin 12.5 g/dL Hematocrit 36.7 % Mean Corpuscular Volume 89.1 fL Mean Corpuscular Hemoglobin 30.3 pg Mean Corpuscular Hemoglobin Concent 34.1 g/dl RDW Standard Deviation 42.9 fL RDW Coefficient of Variation 13.1 % Platelet Count 231 K/uL Mean Platelet Volume 9.2 fL Sodium Level 133 mmol/L Potassium Level 3.8 mmol/L Chloride Level 99 mmol/L Carbon Dioxide Level 24 mmol/L Anion Gap 10.0 mmol/L Blood Urea Nitrogen 31 mg/dl Creatinine 1.17 mg/dl Est Creatinine Clear Calc Drug Dose 34.9 ml/min Estimated GFR () 49.6 Estimated GFR (Non- 42.8 BUN/Creatinine Ratio 26.1 Random Glucose 178 mg/dl Calcium Level 9.5 mg/dl (Dina Tavera ., MCKENZIE-C) Diagnostic Results Reviewed the following studies and agree with interpretation as follows: HEAD WITHOUT CONTRAST (CT) CLINICAL HISTORY: 82 years-old Female with fall, hit left frontal region. Acute head injury status post fall. TECHNIQUE: Multiple axial CT images of the head were obtained without contrast. A dose lowering technique was utilized adhering to the principles of ALARA. CT DOSE: 946.74 mGy.cm COMPARISON: CT head 11/29/2017. FINDINGS: No acute intracranial hemorrhage, midline shift, intracranial mass, hydrocephalus, territorial ischemia or abnormal extra-axial collection. Moderate atrophy. Confluent areas of low-attenuation are noted throughout the white matter compatible with chronic microvascular ischemic changes. Cerebral vascular calcifications are seen at the level of the skull base. The calvarium is intact. The paranasal sinuses, mastoid air cells, and middle ear cavities are clear. Moderate size left frontal soft tissue hematoma measures 4.2 x 1.1 cm, just superior to the left orbit. Mild left periorbital soft tissue swelling. IMPRESSION: 1. No acute intracranial abnormality or calvarial fracture. 2. Moderate sized left supraorbital soft tissue hematoma with mild left periorbital soft tissue swelling. CERVICAL SPINE W/O CT DOSE: HISTORY: Trauma fall, hit head and has posterior neck pain TECHNIQUE: Multiaxial CT images of the cervical spine were performed and reformatted in the sagittal and coronal plane without the use of contrast. A dose lowering technique was utilized adhering to the principles of ALARA. COMPARISON: None. FINDINGS: Considerable degenerative change throughout the entire cervical region. This is most prominent from C3 through C6. No evidence for a compression deformity. Degenerative change of the C1-C2 articulation with no acute process. Transaxial images show no acute bony abnormality. There are degenerative changes of the posterior arch throughout. IMPRESSION: Considerable degenerative change. No acute bony abnormality. L KNEE 3 VIEWS CLINICAL HISTORY: fall, left knee trauma. Pain. COMPARISON: None. DISCUSSION: The bones and joint spaces appear intact. There is no evidence of fracture, dislocation or bony disease. There is no evidence for soft tissue swelling. IMPRESSION: Negative study. (Dina Tavera PA-C) Assessment and Plan 82 y/o female with a history of HTN, HLD, SSS s/p pacemaker, asthma, anxiety, and CKD stage III who presents with dizziness and elevated blood pressure. Hypertensive urgency--resolving -Admit to telemetry. No acute events overnight. Pt in sinus rhythm with HR 60s -70s -Continue metoprolol succinate 100 mg PO qd -Continue losartan 100 mg PO qd -Continue nifedipine 30 mg PO qd -Cover with hydralazine 10 mg IV q6h prn SBP >180 -Renal ultrasound negative for renal artery stenosis -Undergoing 24 hour urine to r/o pheo -BP more elevated today after starting steroids, will decrease Fall--pt reports this was mechanical and that she tripped -Head CT no acute intracranial abnormality. Positive for left supraorbital soft tissue hematoma with mild left periorbital soft tissue swelling -Cervical spine CT negative for acute bony abnormality, does show degenerative changes -Left knee x-ray no acute disease -EKG 70 bpm, NSR Dizziness--improving -Pacemaker interrogation unremarkable, no events recorded -Flu swab negative, PCR negative -Negative orthostatics -TSH WNL Elevated troponin--stable, likely demand ischemia -Troponin remains stable around 0.9: 0.080-->0.092-->0.089-->0.089 HLD -Continue Zocor 20 mg PO qd Asthma with mild exacerbation--lungs tight on exam -Continue DuoNebs QIDR and q2h prn SOB/wheezing -Decrease Solu-Medrol 60 mg IV q12h -Incentive spirometry -Continue Advair BID Anxiety -Continue Prozac 20 mg PO BID DVT prophylaxis -Enoxaparin 40 mg SC q24h Code Status -Level I, FULL RESUSCITATION STATUS Dispo -From [facility] -PT/OT evaluate and treat (Dina Tavera PA-C) Reviewed: Pt Seen/Exam by Me (Nikki Nj MD) History Physician Solutions Engineer Supervision Note: I interviewed and examined the patient. Discussed with MCKENZIE Tavera and agree with findings and plan as documented in the note. Any exceptions or clarifications are listed here: Pt seen and examined twice today-first right after her mechanical fall this AM. At that time she c/o pain over left forehead at site of hematoma and had woken up this AM with posterior neck pain and mild SCHWARTZ. No N/V, no CP, some intermittent SOB. Had some left knee pain after fall as well, no other complaints. Does not think she lost consciousness, fall unwitnessed. CT Head neg for ICH, knee xray neg, CT neck neg for fracture or acute finding. I came back to see her later for worsening confusion after RN called me. Pt was definitely more confused, thought she was in [place], kept thinking she was at home. Denies headache or nausea, thought she was doing better. She was able to get the date correct as well as person. She was pleasant and was not in any distress. Vitals reviewed, tele reviewed RRR no mgr Lungs diminished throughout with some faint wheezes scattered Abd soft NT ND Ext no edema, +crepitus left shoulder with passive ROM, FROM of knees, jips, neg log roll of hips bilat, no ttp over joints throughout Neuro: CN 2-12 intact, strength equal and full in all extremities CT Head result reviewed x [address] neck neg for fracture Labs reviewed, UA neg for UTI Pt is an 82 yo femlae with a h/o HTN, HLD, SSS s/p pacemaker, asthma, anxiety, and CKD stage III who presents with dizziness and elevated blood pressure.Now with mechanical fall and resulting head trauma with hematoma and subgaleal hematomas. No ICH. Also with acute encephalopathy--> likely secondary to concussion, hospital delirium, and possibly steroid psychosis -taper down steroids, provide supportive care -ice packs to left supraorbital region and left posterior scalp subgaleal bleed , watch for expanding hematoma in subgaleal hematoma region -other care as above -PT/OT evals pending due to fall--> needs SNF or rehab Documented By: Nikki Nj (Nikki Nj MD)
--- NOTE | 2017-12-27 18:38 | DIAGNOSTIC IMAGING REPORT ---
HEAD WITHOUT CONTRAST (CT) CLINICAL HISTORY: 82 years-old Female presenting with r/o ICH, confusion. TECHNIQUE: Multidetector CT imaging of the head was performed without the use of intravenous contrast. IV contrast: None. A dose lowering technique was used consistent with the principles of ALARA (as low as reasonably achievable). COMPARISON: 12/27/2017. CT DOSE (mGy.cm): The estimated cumulative dose is 1368.34 mGycm. FINDINGS: Filling Hauler topogram: Unremarkable. Proportional ventricular and sulcal prominence, likely age-related parenchymal volume loss. Periventricular and subcortical white matter hypoattenuation, nonspecific but likely indicative of chronic small vessel ischemic change. No mass effect or midline shift. No hemorrhage or acute territorial infarct. No extra-axial fluid collection. Paranasal sinuses and mastoid air cells clear. Calvarium intact. Focal infiltration of the subcutaneous fat over the left temporo-occipital region consistent with soft tissue contusion, which is new from prior. There is an associated small subgaleal hematoma in this region. Additional limited subcutaneous contusion in the left frontal region, decreased in size from prior. IMPRESSION: 1. Chronic small vessel ischemic change. No acute intracranial abnormality. 2. Decreased size of the left frontal subcutaneous contusion. 3. Interval development of a small subgaleal hematoma and small contusion over the left temporo-occipital region. Correlate for interval trauma. Electronically signed by: Oskar Villareal M.D. 12/27/2017 6:37 PM Dictated Date/Time: 12/27/2017 6:32 PM
[2017-12-27] MEDS: SIMVASTATIN 20 MG TAB PO SCH (21:21)
[2017-12-28] VITALS (12 sets, daily range): BP systolic 109–180; BP diastolic 63–83; PULSE 63–88; TEMP 36.5–37.1; O2SAT 91–96
[2017-12-28] MEDS: METHYLPREDNISOLONE IV 60 MG in SYRINGE 0 ML IV SCH ×2 (02:05→13:13)
[2017-12-28] MEDS: HydrALAZINE HCL 20 MG/ML VIAL IV. PRN ×2 (04:12→23:27)
[2017-12-28] MEDS: ALBUT/IPRATROP 3MG/0.5MG NEB 3 ML VIAL INH SCH ×4 (07:00→19:37)
[2017-12-28 07:27] LABS: HEMATOCRIT 36.8 % (37-47); HEMOGLOBIN 12.4 g/dL (12.0-16.0); MEAN CELL VOLUME 90.2 fL (80-100); MEAN CORPUSCULAR HEMOGLOBIN 30.4 pg (25-34); MEAN CORPUSCULAR HGB CONC 33.7 g/dl (32-36); MEAN PLATELET VOLUME 9.7 fL (7.4-10.4); PLATELET COUNT 249 K/uL (130-400); RED CELL DISTRIBUTION WIDTH CV 13.4 % (11.5-14.5); RED CELL DISTRIBUTION WIDTH SD 44.3 fL (36.4-46.3)
[2017-12-28 07:34] LABS: CREATININE 1.08 mg/dl (0.60-1.20); POTASSIUM 3.8 mmol/L (3.5-5.1)
[2017-12-28] MEDS: PSYLLIUM 58.6% PWD PACK S\\F PO SCH ×2 (07:48→21:00)
[2017-12-28] MEDS: METOPROLOL SUCC 50MG EXT REL TAB PO SCH (07:48)
[2017-12-28] MEDS: FLUOXETINE HCL 20 MG CAP PO SCH ×2 (07:48→21:07)
[2017-12-28] MEDS: CALCIUM 600MG + VIT D 400 IU TAB PO SCH (07:48)
[2017-12-28] MEDS: FLUTICASONE/SALMETEROL (ADVAIR) 500/50 INH 14 PUFF INH SCH ×2 (07:49→21:06)
[2017-12-28] MEDS: CEROVITE ADV FORMULA TAB PO SCH (07:49)
[2017-12-28] MEDS: LOSARTAN POTASSIUM 50 MG TAB PO SCH (07:49)
[2017-12-28] MEDS: NIFEdipine 30 MG CR TAB PO SCH (07:49)
--- NOTE | 2017-12-28 13:00 | Hospitalist Progress Note ---
Hospitalist Progress Note Date of Service Dec 28, 2017. (Dina Tavera ., KISHANC) Subjective Pt evaluation today including: conversation w/ patient, physical exam, chart review, lab review, review of studies, review of inpatient medication list Patient reports feeling better. She does have some soreness in her face around her left eye but states it's better than yesterday. She does report a cough that she thinks is productive, but she is not able to get the mucus up all the way to spit it out. She states she walked with physical therapy and did not have any dizziness/lightheadedness or shortness of breath. She does report some mild soreness in the left knee, but this is also improved. The patient denies fevers, chills, sweats, chest pain, palpitations, claudication, wheezing , shortness of breath, nausea, vomiting, abdominal pain, dysuria, hematuria, urinary retention, paralysis, weakness, numbness and tingling. Additional Comments: See HPI for pertinent positives and negatives. All other systems reviewed and negative. (Dina Tavera ., MCKENZIE-C) Objective Vital Signs Date Time Temp Pulse Resp B/P (MAP) Pulse Ox O2 Delivery O2 Flow Rate FiO2 12/28/17 11:47 36.7 80 16 110/63 (79) 95 12/28/17 11:09 63 18 91 Room Air 12/28/17 08:00 Room Air 12/28/17 07:48 36.5 88 18 109/68 (82) 93 12/28/17 07:00 64 16 96 Room Air 12/28/17 04:57 116/76 (89) 12/28/17 04:15 Room Air 12/28/17 04:00 36.6 81 19 180/83 (115) 92 Room Air 12/28/17 00:00 Room Air 12/27/17 23:13 36.8 69 18 157/70 (99) 93 Room Air 12/27/17 20:03 74 16 92 Room Air 12/27/17 20:00 Room Air 12/27/17 19:21 36.3 65 20 163/80 (107) 94 Room Air 12/27/17 16:00 94 Room Air 12/27/17 15:50 72 16 92 Room Air 12/27/17 15:44 36.7 70 20 185/73 (110) 92 Room Air (Dina Tavera ., PA-C) Physical Exam Notes: General appearance: Well-developed, well-nourished, no apparent distress Head: +Hematoma over left eyebrow expanded, across left eye and some minimal ecchymosis under right eye. Normocephalic Eyes: +Swelling around left eye. No pain w/EOM. PERRL, EOMI ENT: Normal ENT inspection, hearing grossly normal, pharynx normal Neck: Supple, no JVD, trachea midline Respiratory/Chest: +Decreased breath sounds, improved. Lungs clear to auscultation, no respiratory distress Cardiovascular: Regular rate & rhythm, no gallop, no murmur Abdomen/GI: Normal bowel sounds, non-tender, soft Extremities/Musculoskeletal: Normal inspection, no calf tenderness, no pedal edema Neurological/Psych: +Confused at times, but unclear if this is actually related to hearing issues. Answers questions appropriately, oriented. Alert, normal mood/affect, oriented x 3 Skin: Normal color, warm/dry, no rash (Dina Tavera ., PA-C) Laboratory Results Last 24 Hours Test 12/27/17 20:02 12/28/17 06:03 Urine Color YELLOW Urine Appearance CLEAR Urine pH 5.5 Urine Specific [place] 1.018 Urine Protein NEG Urine Glucose (UA) NEG Urine Ketones NEG Urine Occult Blood NEG Urine Nitrite NEG Urine Bilirubin NEG Urine Urobilinogen NEG Urine Leukocyte Esterase SMALL Urine WBC (Auto) 1-5 /hpf Urine RBC (Auto) 0-4 /hpf Urine Hyaline Casts (Auto) 1-5 /lpf Urine Epithelial Cells (Auto) >30 /lpf Urine Bacteria (Auto) NEG White Blood Count 14.80 K/uL Red Blood Count 4.08 M/uL Hemoglobin 12.4 g/dL Hematocrit 36.8 % Mean Corpuscular Volume 90.2 fL Mean Corpuscular Hemoglobin 30.4 pg Mean Corpuscular Hemoglobin Concent 33.7 g/dl RDW Standard Deviation 44.3 fL RDW Coefficient of Variation 13.4 % Platelet Count 249 K/uL Mean Platelet Volume 9.7 fL Sodium Level 137 mmol/L Potassium Level 3.8 mmol/L Chloride Level 104 mmol/L Carbon Dioxide Level 29 mmol/L Anion Gap 4.0 mmol/L Blood Urea Nitrogen 31 mg/dl Creatinine 1.08 mg/dl Est Creatinine Clear Calc Drug Dose 37.8 ml/min Estimated GFR () 54.6 Estimated GFR (Non- 47.1 BUN/Creatinine Ratio 28.4 Random Glucose 139 mg/dl Calcium Level 9.0 mg/dl (Dina Tavera ., MCKENZIE-C) Diagnostic Results Reviewed the following studies and agree with interpretation as follows: HEAD WITHOUT CONTRAST (CT) CLINICAL HISTORY: 82 years-old Female presenting with r/o ICH, confusion. TECHNIQUE: Multidetector CT imaging of the head was performed without the use of intravenous contrast. IV contrast: None. A dose lowering technique was used consistent with the principles of ALARA (as low as reasonably achievable). COMPARISON: 12/27/2017. CT DOSE (mGy.cm): The estimated cumulative dose is 1368.34 mGycm. FINDINGS: Stringing Machine Operator topogram: Unremarkable. Proportional ventricular and sulcal prominence, likely age-related parenchymal volume loss. Periventricular and subcortical white matter hypoattenuation, nonspecific but likely indicative of chronic small vessel ischemic change. No mass effect or midline shift. No hemorrhage or acute territorial infarct. No extra-axial fluid collection. Paranasal sinuses and mastoid air cells clear. Calvarium intact. Focal infiltration of the subcutaneous fat over the left temporo-occipital region consistent with soft tissue contusion, which is new from prior. There is an associated small subgaleal hematoma in this region. Additional limited subcutaneous contusion in the left frontal region, decreased in size from prior. IMPRESSION: 1. Chronic small vessel ischemic change. No acute intracranial abnormality. 2. Decreased size of the left frontal subcutaneous contusion. 3. Interval development of a small subgaleal hematoma and small contusion over the left temporo-occipital region. Correlate for interval trauma. (Dina Tavera ., PA-C) Assessment and Plan 82 y/o female with a history of HTN, HLD, SSS s/p pacemaker, asthma, anxiety, and CKD stage III who presents with dizziness and elevated blood pressure. Hypertensive urgency--improving -Admit to telemetry. No acute events overnight. Pt in sinus rhythm with HR 60s -70s -Continue metoprolol succinate 100 mg PO qd, losartan 100 mg PO qd, nifedipine 30 mg PO qd -Cover with hydralazine 10 mg IV q6h prn SBP >180 -Renal ultrasound negative for renal artery stenosis -24 hour urine to r/o pheo pending -BP elevated early this morning around 4 am, required 1 dose hydralazine, controlled since then Fall--pt reports this was mechanical and that she tripped -Head CT no acute intracranial abnormality. Positive for left supraorbital soft tissue hematoma with mild left periorbital soft tissue swelling -Repeat head CT shows decrease in size of subcutaneous contusion. Interval development of small subgaleal hematoma. Small contusion over left temporo- occipital region. -Cervical spine CT negative for acute bony abnormality, does show degenerative changes -Left knee x-ray no acute disease -EKG 70 bpm, NSR Dizziness--resolving, no dizziness with walking today -Pacemaker interrogation unremarkable, no events recorded -Flu swab negative, PCR negative -Negative orthostatics -TSH WNL Elevated troponin--stable, likely demand ischemia -Troponin remains stable around 0.9: 0.080-->0.092-->0.089-->0.089 HLD -Continue Zocor 20 mg PO qd Asthma with mild exacerbation--improving -Continue DuoNebs QIDR and q2h prn SOB/wheezing -D/C Solu-Medrol, start prednisone 60 mg PO qd tomorrow am -Start Mucinex BID -Incentive spirometry -Continue Advair BID Anxiety -Continue Prozac 20 mg PO BID DVT prophylaxis -Hold chemical prophylaxis due to hematomas -PRAVEENA Liras Code Status -Level I, FULL RESUSCITATION STATUS Dispo -From [facility] -PT/OT evaluate and treat: PT recommends rehab. Pt and son would prefer [facility] or [facility], case management following (Dina Tavera ., OVIDIO) Reviewed: Pt Seen/Exam by Me (Nikki Nj MD) History Physician School Business Manager Supervision Note: I interviewed and examined the patient. Discussed with MCKENZIE Tavera and agree with findings and plan as documented in the note. Any exceptions or clarifications are listed here: Much improved today. Still some mild confusion at times, but overall improved. No headache, no N/V, is nevaeh po. Worked with PT today and is recommended for SNF/ Rehab. Denies SOB. Recalls being very scared of using the toilet last night, is not sure why. Vitals reviewed, tele reviewed Left periorbital region with moderate amount of edema and hematoma, ecchymosis with spread to right medial periorbital region, left parieto-occipital region with small contusion with ecchymosis, no mass/hematoma RRR no mgr Lungs diminished throughout but no further wheezes Abd soft NT ND Ext no edema Neuro: CN 2-12 intact, strength equal and full in all extremities Pt is an 82 yo female with a h/o HTN, HLD, SSS s/p pacemaker, asthma, anxiety, and CKD stage III who presents with dizziness and elevated blood pressure.Now with mechanical fall in the hospital and resulting head trauma with hematoma and subgaleal hematoma. No ICH. Also with acute encephalopathy--> likely secondary to concussion, hospital delirium, and possibly steroid psychosis--> improved today with reducing steroid dose and with time, redirection -continue to taper down steroids and change to po, provide supportive care -BPs much improved with addition of nifedipine and reducing steroids -continue ice packs to left supraorbital region and left posterior scalp subgaleal bleed, watch for expanding hematoma in subgaleal hematoma region -other care as above -PT/OT evals pending due to fall--> needs SNF or rehab-medically ready for discharge when accepted Documented By: Nikik Nj (Nikki Nj MD)
[2017-12-28] MEDS: GUAIFENESIN 600 MG TABCR PO SCH (21:06)
[2017-12-28] MEDS: SIMVASTATIN 20 MG TAB PO SCH (21:07)
[2017-12-29] VITALS (8 sets, daily range): BP systolic 154–173; BP diastolic 76–94; PULSE 61–71; TEMP 36.7–37.1; O2SAT 90–98
[2017-12-29] MEDS: ALBUT/IPRATROP 3MG/0.5MG NEB 3 ML VIAL INH SCH ×4 (07:22→19:01)
[2017-12-29 07:54] LABS: HEMOGLOBIN 11.8 g/dL (12.0-16.0); MEAN CELL VOLUME 91.8 fL (80-100); MEAN CORPUSCULAR HEMOGLOBIN 30.1 pg (25-34); MEAN CORPUSCULAR HGB CONC 32.8 g/dl (32-36); MEAN PLATELET VOLUME 9.6 fL (7.4-10.4); PLATELET COUNT 237 K/uL (130-400); RED CELL DISTRIBUTION WIDTH CV 13.7 % (11.5-14.5); WHITE BLOOD COUNT 11.66 K/uL (4.8-10.8)
[2017-12-29 08:26] LABS: CALCIUM 8.8 mg/dl (8.5-10.1); CREATININE 1.07 mg/dl (0.60-1.20); POTASSIUM 3.8 mmol/L (3.5-5.1)
[2017-12-29] MEDS: FLUTICASONE/SALMETEROL (ADVAIR) 500/50 INH 14 PUFF INH SCH ×2 (09:03→20:33)
[2017-12-29] MEDS: PSYLLIUM 58.6% PWD PACK S\\F PO SCH ×2 (09:03→20:33)
[2017-12-29] MEDS: GUAIFENESIN 600 MG TABCR PO SCH ×2 (09:04→20:34)
[2017-12-29] MEDS: FLUOXETINE HCL 20 MG CAP PO SCH ×2 (09:04→20:34)
[2017-12-29] MEDS: CALCIUM 600MG + VIT D 400 IU TAB PO SCH (09:04)
[2017-12-29] MEDS: NIFEdipine 30 MG CR TAB PO SCH (09:04)
[2017-12-29] MEDS: LOSARTAN POTASSIUM 50 MG TAB PO SCH (09:04)
[2017-12-29] MEDS: CEROVITE ADV FORMULA TAB PO SCH (09:05)
[2017-12-29] MEDS: METOPROLOL SUCC 50MG EXT REL TAB PO SCH (09:05)
--- NOTE | 2017-12-29 18:15 | Hospitalist Progress Note ---
Hospitalist Progress Note Date of Service Dec 29, 2017. Subjective Pt evaluation today including: conversation w/ patient, conversation w/ family (Son on the phone) Voiding: no voiding problems Patient feels much improved. She notes that she was confused for a couple of days and now feels better. She denies any headache at all. Denies chest pain or shortness of breath. She is still coughing and feels like she is finally able to get sputum up and out. She is tolerating p.o. and has a good appetite. She did have to receive 1 dose of IV hydralazine last night for systolic blood pressure of 180. All Other Systems: Reviewed and Negative Objective Vital Signs Date Time Temp Pulse Resp B/P (MAP) Pulse Ox O2 Delivery O2 Flow Rate FiO2 12/29/17 16:00 Room Air 12/29/17 14:44 36.8 67 20 163/77 (105) 98 12/29/17 14:43 70 18 95 Room Air 12/29/17 12:27 37.1 61 18 92 Room Air 12/29/17 11:16 61 18 92 Room Air 12/29/17 08:00 Room Air 12/29/17 07:23 69 18 90 Room Air 12/29/17 06:50 37.1 69 18 154/94 (114) 91 Room Air 12/29/17 00:00 Room Air 12/28/17 23:21 37.1 66 18 180/76 (110) 92 Room Air 12/28/17 19:40 69 18 93 Room Air 12/28/17 18:10 36.5 69 18 170/67 (101) 95 Room Air Physical Exam General Appearance: WD/WN, no apparent distress Eyes: EOMI, sclerae normal, + pertinent finding (Significant left periorbital edema and ecchymosis with some spread of ecchymosis to the right medial periorbital region, no significant tenderness to palpation over the maxilla or zygomatic arch or frontal bones or nasal bones) ENT: hearing grossly normal, pharynx normal Neck: supple (And nontender), no adenopathy, trachea midline Respiratory/Chest: no respiratory distress, no accessory muscle use, + decreased breath sounds (Diminished slightly throughout without wheezing or crackles or rhonchi) Cardiovascular: regular rate, rhythm, no edema, no murmur Abdomen: normal bowel sounds, non tender, soft Extremities: non-tender, normal inspection, no pedal edema, no calf tenderness Neurologic/Psychiatric: alert, normal mood/affect, oriented x 3, + pertinent finding (Able to name the months of the year backwards without mistake) Skin: warm/dry, no rash, + pertinent finding (Multiple areas of ecchymosis in the left and right periorbital regions, left posterior parietal occiput region with small ecchymosis and contusion) Lymphatic: no adenopathy Laboratory Results Last 24 Hours Test 12/29/17 06:41 White Blood Count 11.66 K/uL Red Blood Count 3.92 M/uL Hemoglobin 11.8 g/dL Hematocrit 36.0 % Mean Corpuscular Volume 91.8 fL Mean Corpuscular Hemoglobin 30.1 pg Mean Corpuscular Hemoglobin Concent 32.8 g/dl RDW Standard Deviation 45.0 fL RDW Coefficient of Variation 13.7 % Platelet Count 237 K/uL Mean Platelet Volume 9.6 fL Sodium Level 138 mmol/L Potassium Level 3.8 mmol/L Chloride Level 105 mmol/L Carbon Dioxide Level 26 mmol/L Anion Gap 7.0 mmol/L Blood Urea Nitrogen 28 mg/dl Creatinine 1.07 mg/dl Est Creatinine Clear Calc Drug Dose 38.2 ml/min Estimated GFR () 55.2 Estimated GFR (Non- 47.6 BUN/Creatinine Ratio 26.4 Random Glucose 81 mg/dl Calcium Level 8.8 mg/dl Assessment and Plan Pt is an 82 yo female with a h/o HTN, HLD, SSS s/p pacemaker, asthma, anxiety, and CKD stage III who presents with dizziness and elevated blood pressure. Then with mechanical fall in the hospital and resulting head trauma with hematoma and subgaleal hematoma. No ICH. Also with ensuing acute encephalopathy- -> likely secondary to concussion, hospital delirium, and possibly steroid psychosis. Hypertensive urgency/dizziness--much improved, continues to still have some isolated significantly elevated blood pressures. The dizziness was all related secondary to the hypertensive urgency. Her plasma metanephrines are negative, 24-hour urine still pending, renin activity level low and aldosterone low with renin and aldosterone ratio low not indicative of primary hyperaldosteronism Renal ultrasound negative for renal artery stenosis -Pacemaker interrogation unremarkable, no events recorded -Flu swab negative, PCR negative -Negative orthostatics -TSH WNL -Initially admitted to telemetry. Remained in sinus rhythm and transferred to medical floor -Continue metoprolol succinate 100 mg PO qd, losartan 100 mg PO qd -Added nifedipine and will increase to 60 mg PO qd for tomorrow -Cover with hydralazine 10 mg IV q6h prn SBP >180 -Continue to follow up on results of 24 hour urine to [facility] but low likelihood of being positive Fall/acute encephalopathy--pt reports this was mechanical and that she tripped- improving from all of her injuries and contusions. Did suffer some encephalopathy afterwards secondary likely to postconcussion syndrome and possibly coincidentally due to IV steroids which is now much improved -Head CT no acute intracranial abnormality. Positive for left supraorbital soft tissue hematoma with mild left periorbital soft tissue swelling -Repeat head CT shows decrease in size of subcutaneous contusion. Interval development of small subgaleal hematoma. Small contusion over left temporo- occipital region. -Cervical spine CT negative for acute bony abnormality, does show degenerative changes -Left knee x-ray no acute disease -EKG 70 bpm, NSR -Holding Lovenox and aspirin-can restart aspirin on discharge tomorrow Elevated troponin--stable, likely demand ischemia from hypertensive urgency -Troponin remains stable around 0.9: 0.080-->0.092-->0.089-->0.089 HLD-stable -Continue Zocor 20 mg PO qd Asthma with mild exacerbation--much improved. IV Solu-Medrol may have contributed to encephalopathy and encephalopathy now improved with switching to p.o. prednisone -Continue DuoNebs QIDR and q2h prn SOB/wheezing -Continue prednisone 60 mg PO qd and taper down quickly -Start Mucinex BID -Incentive spirometry -Continue Advair BID Anxiety-stable -Continue Prozac 20 mg PO BID DVT prophylaxis -Hold chemical prophylaxis due to hematomas -Nancy Lira Code Status -Level I, FULL RESUSCITATION STATUS Dispo -From [facility] -PT/OT evaluate and treat: PT recommends rehab. Denied from [facility], was accepted to [facility] and will transport there tomorrow
[2017-12-29] MEDS: SIMVASTATIN 20 MG TAB PO SCH (20:34)
[2017-12-30 00:15] VITALS: BP_SYST 179; BP_SYST 185; BP_SYST 207; BP_DIAS 70; BP_DIAS 73; BP_DIAS 82; PULSE 67; PULSE 73; PULSE 75; TEMP 36.5; O2SAT 96
[2017-12-30 07:29] VITALS: PULSE 77; O2SAT 96
[2017-12-30] MEDS: ALBUT/IPRATROP 3MG/0.5MG NEB 3 ML VIAL INH SCH (07:29)
[2017-12-30 07:33] VITALS: BP 178/82; PULSE 66; TEMP 36.6; O2SAT 96
[2017-12-30] MEDS ORDERED: NIFEdipine 30 MG CR TAB PO SCH (08:00)
[2017-12-30] MEDS: FLUTICASONE/SALMETEROL (ADVAIR) 500/50 INH 14 PUFF INH SCH (08:29)
[2017-12-30] MEDS: CEROVITE ADV FORMULA TAB PO SCH (08:30)
[2017-12-30] MEDS: GUAIFENESIN 600 MG TABCR PO SCH (08:30)
[2017-12-30] MEDS: FLUOXETINE HCL 20 MG CAP PO SCH (08:30)
[2017-12-30] MEDS: METOPROLOL SUCC 50MG EXT REL TAB PO SCH (08:31)
[2017-12-30] MEDS: CALCIUM 600MG + VIT D 400 IU TAB PO SCH (08:32)
[2017-12-30] MEDS: LOSARTAN POTASSIUM 50 MG TAB PO SCH (08:32)
[2017-12-30] MEDS: PSYLLIUM 58.6% PWD PACK S\\F PO SCH (08:32)
[2017-12-30] MEDS ORDERED: PRD10 PO (09:33)
[2017-12-30] MEDS ORDERED: GFNSR600 PO (09:33)
[2017-12-30] MEDS ORDERED: TPRSR/100 PO (09:33)
[2017-12-30] MEDS ORDERED: NIFE60TA66 PO (09:33)
[2017-12-30 09:38] VITALS: BP 160/77; PULSE 60
--- NOTE | 2017-12-30 09:52 | Discharge Instructions ---
Discharge Instructions Date of Service Dec 30, 2017. Admission Reason for Admission: Htn Emergency, Elevated Tn, Dizziness Discharge Discharge Diagnosis / Problem: HTN emergency, elevated troponin, dizziness Discharge Goals Goal(s): Decrease discomfort, Improve function, Diagnostic testing, Therapeutic intervention Activity Recommendations Activity Level: Assistance Required Therapies: Physical Therapy, Occupational Therapy . Additional Information Patient informed of condition: Yes Advance Directives: Yes DNR: No Level of Care: Skilled Communicable Disease: No Prognosis: Stable Instructions / Follow-Up Instructions / Follow-Up The patient was admitted to the hospital with hypertensive emergency. She was found to have an elevated troponin as well as dizziness. Her troponin was trended and remained stable, therefore likely related to demand ischemia/due to her severely elevated blood pressure. The patient's blood pressure meds were titrated and a new agent was added. The patient's dizziness is now resolved. She has not been orthostatic and her pacemaker interrogation did not reveal any events. The patient did develop a mild asthma exacerbation, which was treated with nebulizers and steroids. The addition of steroids did elevate her BP again , but her breathing has improved. The patient also sustained a mechanical fall after getting up by herself, despite being told not to do so. The patient did hit her head/face, but two head CTs were negative for intracranial hemorrhage. The patient had developed some confusion during her stay, possibly due to her falls vs hospital delirium vs steroids. This is now resolved, and she is back to baseline. She is now medically stable for transfer to SNF. Medications: *Metoprolol succinate increased to 100 mg PO daily. *Nifedipine 60 mg PO daily added to regimen. *Please administer the following prednisone taper: -40 mg (4 tablets) PO on day 1 (start 12/31), then -30 mg (3 tablets) PO on day 2, then -20 mg (2 tablets) PO on day 3, then -10 mg (1 tablet) PO on day 4, then stop. *Mucinex 600 mg PO twice daily for 7 more days. *Patient has Combivent prn from home med list. Would recommend giving this to patient scheduled four times a day for the next few days as patient is still recovering from asthma exacerbation. *Continue other home medications as prescribed. Follow up: *Please have patient follow up with primary care provider within one week of discharge. Please seek medical attention if patient experiences fevers, chills, sweats, dizziness/lightheadedness, loss of consciousness, chest pain, shortness of breath, nausea, vomiting, numbness or tingling. Current Hospital Diet Patient's current hospital diet: AHA Diet (Heart Healthy) Discharge Diet Recommended Diet: AHA Diet (Heart Healthy) Pending Studies Studies pending at discharge: yes List of pending studies: 24 hour urine results Physician Orders On Transfer Special Precautions: Fall precautions Vital Signs: Routine Additional Orders: Apply ice packs to face Laboratory Results Lipid Panel Test 12/25/17 02:19 Range/Units Triglycerides Level 102 0-150 mg/dl Cholesterol Level 150 0-200 mg/dl HDL Cholesterol 70 mg/dl Cholesterol/HDL Ratio 2.1 LDL Cholesterol, Calculated 60 mg/dl Medical Emergencies . Who to Call and When: Medical Emergencies: If at any time you feel your situation is an emergency, please call 911 immediately. . Non-Emergent Contact Non-Emergency issues call your: Primary Care Provider Call Non-Emergent contact if: you have a fever, you have any medication questions . Past History Medical & Surgical History: (1) Hypertensive emergency (2) Elevated troponin (3) Dizziness (4) Asthma . "Provider Documentation" section prepared by Dina Tavera. . Core Measure Problem Core Measures: None
[2017-12-30 09:56] VITALS: BP 160/77; PULSE 60; TEMP 36.6; O2SAT 96
--- NOTE | 2017-12-30 10:06 | Discharge Summary ---
Discharge Summary Date of Service Dec 30, 2017. Discharge Summary Admission Date: Dec 24, 2017 at 14:32 Discharge Date: Dec 30, 2017 Discharge Disposition: custodial facility ([facility]) Principal Diagnosis: Hypertensive emergency, elevated troponin, dizziness Problems/Secondary Diagnoses: Mechanical fall Facial and scalp contusions, subgaleal hemorrhage Acute asthma exacerbation HTN HLD SSS s/p pacemaker Anxiety disorder CKD stage III Demand ischemia Acute encephalopathy Immunizations: Have You Had Influenza Vaccine: Yes History of Tetanus Vaccine?: No History of Pneumococcal: No History of Hepatitis B Vaccine: No Procedures: HEAD WITHOUT CONTRAST (CT) CLINICAL HISTORY: 82 years-old Female presenting with r/o ICH, confusion. TECHNIQUE: Multidetector CT imaging of the head was performed without the use of intravenous contrast. IV contrast: None. A dose lowering technique was used consistent with the principles of ALARA (as low as reasonably achievable). COMPARISON: 12/27/2017. CT DOSE (mGy.cm): The estimated cumulative dose is 1368.34 mGycm. 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 Proportional ventricular and sulcal prominence, likely age-related parenchymal volume loss. Periventricular and subcortical white matter hypoattenuation, nonspecific but likely indicative of chronic small vessel ischemic change. No mass effect or midline shift. No hemorrhage or acute territorial infarct. No extra-axial fluid collection. Paranasal sinuses and mastoid air cells clear. Calvarium intact. Focal infiltration of the subcutaneous fat over the left temporo-occipital region consistent with soft tissue contusion, which is new from prior. There is an associated small subgaleal hematoma in this region. Additional limited subcutaneous contusion in the left frontal region, decreased in size from prior. IMPRESSION: 1. Chronic small vessel ischemic change. No acute intracranial abnormality. 2. Decreased size of the left frontal subcutaneous contusion. 3. Interval development of a small subgaleal hematoma and small contusion over the left temporo-occipital region. Correlate for interval trauma. Consultations: None Medication Reconciliation New Medications: Prednisone (Prednisone) 10 Mg Tab 10 MG PO UD for 4 Days, #10 TABS 40 mg (4 tabs) day 1, 30 mg (3 tabs) day 2, 20 mg (2 tabs) day 3, 10 mg (1 tab) day 4 Guaifenesin Ext Rel (Mucinex Ext Rel) 600 Mg Tabcr 600 MG PO Q12 for 7 Days, #14 TABS Metoprolol Succinate (Metoprolol Succinate ER) 100 Mg Tabcr 100 MG PO DAILY for 30 Days, #30 TABS Nifedipine (Nifedipine Er) 60 Mg Tab 1 TAB PO DAILY for 30 Days, #30 TAB Continued Medications: Acetaminophen (Tylenol) 500 Mg Tab 500-1000 MG PO HS PRN for sleep/pain Acetaminophen (Tylenol) 500 Mg Tab 500 MG PO BID Aspirin (Aspirin Ec) 81 Mg Tab 81 MG PO DAILY Calcium/Vitamin D (Os-Efren 500 Plus D) Tab 1 TAB PO DAILY Fluoxetine (Prozac) 20 Mg Cap 20 MG PO BID Fluticasone Prop/Salmeterol (Advair Diskus 500/50 60 Dose) 1 Ea Aerp 1 PUFF INH BID Ipratropium-Albuterol (Combivent Respimat) 1 Aer Aer 1 PUFF INH QID PRN for Shortness of Breath Losartan Potassium (Cozaar) 100 Mg Tab 100 MG PO DAILY Multiple Vitamins W/ Minerals (Preservision Areds) 1 Cap Cap 1 CAP PO BID Multivitamins/Minerals (Mvi With Minerals) Tab 1 TAB PO DAILY [place]-3 Fatty Acids (Fish Oil) 1,000 Mg Cap 1000 MG PO BID Psyllium (Metamucil Original Textur) 48.57 % Pow 1 TBS PO BID MIX IN 8 OZ FLUID Simvastatin (Simvastatin) 20 Mg Tab 20 MG PO DAILY Discontinued Medications: Metoprolol Succ (Toprol Xl) (Toprol-Xl) 50 Mg Tabcr 50 MG PO DAILY Discharge Exam The patient reports feeling well. She denies any headaches or facial pain. She does report a productive cough but denies any wheezing or shortness of breath. The patient denies fevers, chills, sweats, chest pain, palpitations, claudication, wheezing, shortness of breath, nausea, vomiting, abdominal pain, dysuria, hematuria, urinary retention, paralysis, weakness, numbness and tingling. Constitutional: No fever, No chills, No sweats Eyes: No worsening of vision, No eye pain, No diplopia ENT: No hearing loss, No nasal symptoms, No trouble swallowing Respiratory: +Productive cough. No wheezing, No shortness of breath Cardiovascular: No chest pain, No claudication, No palpitations Abdomen: No pain, No nausea, No vomiting Musculoskeletal: No joint pain, No muscle pain, No swelling Genitourinary - Female: No dysuria, No urinary retention, No hematuria Neurologic: No paralysis, No weakness, No numbness/tingling Integumentary: No rash, No itch, No color change General appearance: Well-developed, well-nourished, no apparent distress Head: +Ecchymoses around left eye, expanding down left side of face and under right eye. Normocephalic Eyes: +Periorbital edema improved. PERRL, EOMI ENT: Normal ENT inspection, hearing grossly normal, pharynx normal Neck: Supple, no JVD, trachea midline Respiratory/Chest: +Mild wheezing. Normal breath sounds, no respiratory distress Cardiovascular: Regular rate & rhythm, no gallop, no murmur Abdomen/GI: Normal bowel sounds, non-tender, soft Extremities/Musculoskeletal: Normal inspection, no calf tenderness, no pedal edema Neurological/Psych: Alert, normal mood/affect, oriented x 3 Skin: +Ecchymoses as above. Normal color, warm/dry, no rash Hospital Course 82 y/o female with a history of HTN, HLD, SSS s/p pacemaker, asthma, anxiety, and CKD stage III who presents with dizziness and elevated blood pressure. Hypertensive urgency--improving -Admit to telemetry. No acute events on tele. Pt remained in NSR. -Continue metoprolol succinate 100 mg PO qd, losartan 100 mg PO qd -Nifedipine increased to 60 mg PO qd -Cover with hydralazine 10 mg IV q6h prn SBP >180 -Renal ultrasound negative for renal artery stenosis -24 hour urine to r/o pheo pending Fall--pt reports this was mechanical and that she tripped -Head CT no acute intracranial abnormality. Positive for left supraorbital soft tissue hematoma with mild left periorbital soft tissue swelling -Repeat head CT shows decrease in size of subcutaneous contusion. Interval development of small subgaleal hematoma. Small contusion over left temporo- occipital region. -Cervical spine CT negative for acute bony abnormality, does show degenerative changes -Left knee x-ray no acute disease -EKG 70 bpm, NSR Dizziness--resolving, no dizziness with walking -Pacemaker interrogation unremarkable, no events recorded -Flu swab negative, PCR negative -Negative orthostatics -TSH WNL Elevated troponin--stable, likely demand ischemia -Troponin remains stable around 0.9: 0.080-->0.092-->0.089-->0.089 HLD -Continue Zocor 20 mg PO qd Asthma with mild exacerbation--improving -Continue DuoNebs QIDR and q2h prn SOB/wheezing. Pt has Combivent as home med, would recommend giving this scheduled QIDR for first few days -Solu-Medrol d/c'd. Received prednisone 50 mg PO prior to discharge. Continue w/following 40 mg taper: 40 mg on day 1, then decrease by 10 mg each day -Continue Mucinex 600 mg PO BID x 1 more week -Incentive spirometry -Continue Advair BID Anxiety -Continue Prozac 20 mg PO BID DVT prophylaxis -Held chemical prophylaxis and ASA due to hematomas. Can resume aspirin on discharge -Nancy Lira Code Status -Level I, FULL RESUSCITATION STATUS Dispo -From [facility] -PT/OT recommend acute rehab. [facility] Total Time Spent: Greater than 30 minutes This includes examination of the patient, discharge planning, medication reconciliation, and communication with other providers. Discharge Instructions Please refer to the electronic Patient Visit Report (Discharge Instructions) for additional information. Follow-Up With PCP within 1-2 weeks after discharge from [facility] Additional Copies To Chito Dunbar M.D.; Samara Lin Reviewed: Pt Seen/Exam by Me History Physician Night Custodian Supervision Note: I interviewed and examined the patient. Discussed with MCKENZIE Tavera and agree with findings and plan as documented in the note. Any exceptions or clarifications are listed here: Patient doing very well today, has no complaints except occasional dyspnea on exertion. Vitals reviewed Physical Exam General Appearance: WD/WN, no apparent distress Eyes: EOMI, sclerae normal, + pertinent finding (Significant left periorbital edema and ecchymosis with some spread of ecchymosis to the right medial periorbital region, no significant tenderness to palpation over the maxilla or zygomatic arch or frontal bones or nasal bones) ENT: hearing grossly normal, pharynx normal Neck: supple (And nontender), no adenopathy, trachea midline Respiratory/Chest: no respiratory distress, no accessory muscle use, + decreased breath sounds (Diminished slightly throughout without wheezing or crackles or rhonchi) Cardiovascular: regular rate, rhythm, no edema, no murmur Abdomen: normal bowel sounds, non tender, soft Extremities: non-tender, normal inspection, no pedal edema, no calf tenderness Neurologic/Psychiatric: alert, normal mood/affect, oriented x 3, + pertinent finding (Able to name the months of the year backwards without mistake) Skin: warm/dry, no rash, + pertinent finding (Multiple areas of ecchymosis in the left and right periorbital regions, left posterior parietal occiput region with small ecchymosis and contusion) Lymphatic: no adenopathy Pt is an 82 yo female with a h/o HTN, HLD, SSS s/p pacemaker, asthma, anxiety, and CKD stage III who presents with dizziness and elevated blood pressure. Then with mechanical fall in the hospital and resulting head trauma with hematoma and subgaleal hematoma. No ICH. Also with ensuing acute encephalopathy- -> likely secondary to concussion, hospital delirium, and possibly steroid psychosis. Hypertensive urgency/dizziness--much improved, continues to still have some isolated significantly elevated blood pressures. The dizziness was all related secondary to the hypertensive urgency. Her plasma metanephrines are negative, 24-hour urine still pending, renin activity level low and aldosterone low with renin and aldosterone ratio low not indicative of primary hyperaldosteronism Renal ultrasound negative for renal artery stenosis -Pacemaker interrogation unremarkable, no events recorded -Flu swab negative, PCR negative -Negative orthostatics -TSH WNL -Initially admitted to telemetry. Remained in sinus rhythm and transferred to medical floor -Continue metoprolol succinate 100 mg PO qd, losartan 100 mg PO qd -Added nifedipine and increased to 60 mg PO qd -treated with IV hydralazine as needed for blood pressure over 180 systolic -24 hour urine metanephrines was negative Fall/acute encephalopathy--pt reports this was mechanical and that she tripped- improving from all of her injuries and contusions. Did suffer some encephalopathy afterwards secondary likely to postconcussion syndrome and possibly coincidentally due to IV steroids which is now much improved -Head CT no acute intracranial abnormality. Positive for left supraorbital soft tissue hematoma with mild left periorbital soft tissue swelling -Repeat head CT shows decrease in size of subcutaneous contusion. Interval development of small subgaleal hematoma. Small contusion over left temporo- occipital region. -Cervical spine CT negative for acute bony abnormality, does show degenerative changes -Left knee x-ray no acute disease -EKG 70 bpm, NSR -Holding Lovenox and aspirin-can restart aspirin on discharge today Elevated troponin--stable, likely demand ischemia from hypertensive urgency -Troponin remained mildly elevated but stable around 0.9: 0.080-->0.092-->0.089 -->0.089 HLD-stable -Continue Zocor 20 mg PO qd Asthma with mild exacerbation--much improved. IV Solu-Medrol may have contributed to encephalopathy and encephalopathy now improved with switching to p.o. prednisone -Continue DuoNebs QIDR and q2h prn SOB/wheezing -Continue prednisone 50 mg PO qd and taper down quickly -Continue Mucinex BID -Incentive spirometry -Continue Advair BID Anxiety-stable -Continue Prozac 20 mg PO BID Stable for discharge to SNF Documented By: Nikki Nj Assessment/Plan Pt is an 82 yo female with a h/o HTN, HLD, SSS s/p pacemaker, asthma, anxiety, and CKD stage III who presents with dizziness and elevated blood pressure. Then with mechanical fall in the hospital and resulting head trauma with hematoma and subgaleal hematoma. No ICH. Also with ensuing acute encephalopathy- -> likely secondary to concussion, hospital delirium, and possibly steroid psychosis. Hypertensive urgency/dizziness--much improved, continues to still have some isolated significantly elevated blood pressures. The dizziness was all related secondary to the hypertensive urgency. Her plasma metanephrines are negative, 24-hour urine still pending, renin activity level low and aldosterone low with renin and aldosterone ratio low not indicative of primary hyperaldosteronism Renal ultrasound negative for renal artery stenosis -Pacemaker interrogation unremarkable, no events recorded -Flu swab negative, PCR negative -Negative orthostatics -TSH WNL -Initially admitted to telemetry. Remained in sinus rhythm and transferred to medical floor -Continue metoprolol succinate 100 mg PO qd, losartan 100 mg PO qd -Added nifedipine and will increase to 60 mg PO qd for tomorrow -Cover with hydralazine 10 mg IV q6h prn SBP >180 -Continue to follow up on results of 24 hour urine to r/o pheo but low likelihood of being positive Fall/acute encephalopathy--pt reports this was mechanical and that she tripped- improving from all of her injuries and contusions. Did suffer some encephalopathy afterwards secondary likely to postconcussion syndrome and possibly coincidentally due to IV steroids which is now much improved -Head CT no acute intracranial abnormality. Positive for left supraorbital soft tissue hematoma with mild left periorbital soft tissue swelling -Repeat head CT shows decrease in size of subcutaneous contusion. Interval development of small subgaleal hematoma. Small contusion over left temporo- occipital region. -Cervical spine CT negative for acute bony abnormality, does show degenerative changes -Left knee x-ray no acute disease -EKG 70 bpm, NSR -Holding Lovenox and aspirin-can restart aspirin on discharge tomorrow Elevated troponin--stable, likely demand ischemia from hypertensive urgency -Troponin remains stable around 0.9: 0.080-->0.092-->0.089-->0.089 HLD-stable -Continue Zocor 20 mg PO qd Asthma with mild exacerbation--much improved. IV Solu-Medrol may have contributed to encephalopathy and encephalopathy now improved with switching to p.o. prednisone -Continue DuoNebs QIDR and q2h prn SOB/wheezing -Continue prednisone 60 mg PO qd and taper down quickly -Start Mucinex BID -Incentive spirometry -Continue Advair BID Anxiety-stable -Continue Prozac 20 mg PO BID DVT prophylaxis -Hold chemical prophylaxis due to hematomas -Nancy Lira Code Status -Level I, FULL RESUSCITATION STATUS Dispo -From [facility] -PT/OT evaluate and treat: PT recommends rehab. Denied from [facility], was accepted to [facility] and will transport there tomorrow
[2017-12-30 10:14] VITALS: BP 157/72; PULSE 60
== END 2017-12-30 11:18 | DRG 304 ==
LOC: EDBD 10:43 → C.EDC 10:46 → C.2T 14:32 → ENRESERV 15:15 → C.MS2W 12-28 18:04 → C.4E 12-29 19:53
PROVIDERS: ADMIT Hospitalist; ATTEND Family Medicine
DX: I13.10 Hypertensive heart and chronic kidney disease without heart failure, with stage 1 through stage 4 chronic kidney disease, or unspecified chronic kidney disease (principal); I16.1 Hypertensive emergency; G93.40 Encephalopathy, unspecified; J45.901 Unspecified asthma with (acute) exacerbation; I24.8 Other forms of acute ischemic heart disease; F23 Brief psychotic disorder; T38.0X5A Adverse effect of glucocorticoids and synthetic analogues, initial encounter; S06.0X0A Concussion without loss of consciousness, initial encounter; Z95.0 Presence of cardiac pacemaker; Z96.649 Presence of unspecified artificial hip joint; Z79.82 Long term (current) use of aspirin; E78.5 Hyperlipidemia, unspecified; F41.9 Anxiety disorder, unspecified; E26.01 Conn's syndrome; I70.1 Atherosclerosis of renal artery; S00.03XA Contusion of scalp, initial encounter; S00.83XA Contusion of other part of head, initial encounter; N18.3 Chronic kidney disease, stage 3 (moderate); W01.198A Fall on same level from slipping, tripping and stumbling with subsequent striking against other object, initial encounter; Y92.239 Unspecified place in hospital as the place of occurrence of the external cause

== ENCOUNTER 2018-01-21 21:37 | Emergency (ER) | payer BC, OTHER ==
[~2018-01-21] VITALS: Ht 162.6 cm; Wt 76.0 kg
[~2018-01-21 21:37] MED LIST changes: +ASPI81TA28 PO; +GFNSR600 PO; -LORA-741 PO; -MECL1TAB42 PO; +NIFE60TA66 PO; +PRD10 PO; +PSYL48.58 PO; +TPRSR/100 PO
[2018-01-21 21:41] VITALS: TEMP 36.6; Ht 162.6 cm; Wt 76.0 kg
[2018-01-21] MEDS ORDERED: ACETAMINOPHEN 500 MG TAB PO STA (21:55)
--- NOTE | 2018-01-21 22:25 | EMERGENCY ROOM VISIT NOTE ---
History Report prepared by Kellee: Nicolasa Solis Under the Supervision of: Dr. Ronny Saunders M.D. First contact with patient: 21:49 Chief Complaint: FALL Stated Complaint: FELL AGAINST SINK,HAS PAIN BACK/RIBS History of Present Illness The patient is an 82 year old female who presents to the Emergency Room with complaints of persistent left side abdominal pain since 1600 today. The patient states that she was coming out of the bathroom when she walked into the sink. She notes a bruise to the left side of her abdomen/flank and pain in the same area. She states the pain is worsened with deep breathing. She notes that she has not taken any medication for pain. She denies any dizziness. She denies any head injuries or LOC. She notes a bruise to the left side of her face, though states that she fell weeks ago while here in the hospital. She denies any blood thinner use aside from aspirin. Source of History: patient Onset: 1600 today Position: abdomen (left side) Timing: other (persistent) Modifying Factors (Worsening): breathing (deep) Associated Symptoms: No LOC Note: She denies any head injuries or dizziness. Review of Systems See HPI for pertinent positives & negatives. A total of 10 systems reviewed and were otherwise negative. Past Medical & Surgical Medical Problems: (1) Asthma (2) HTN (hypertension) (3) HTN emergency, elevated tn, dizziness (4) Syncope and collapse (5) UTI (urinary tract infection) Surgical Problems: (1) History of hip replacement (2) History of total hip replacement (3) Pacemaker Family History Cancer Diabetes mellitus Gallbladder disease Heart disease Hypertension Social History Smoking Status: Former Smoker Drug Use: none Marital Status: Housing Status: alf Occupation Status: retired Current/Historical Medications Scheduled Acetaminophen (Tylenol), 500 MG PO BID Aspirin (Aspirin Ec), 81 MG PO DAILY Calcium/Vitamin D (Os-Efren 500 Plus D), 1 TAB PO DAILY Docusate Sodium (Docusate Sodium), 1 CAP PO DAILY Fluoxetine (Prozac), 20 MG PO BID Fluticasone Prop/Salmeterol (Advair Diskus 500/50 60 Dose), 1 PUFF INH BID Losartan Potassium (Cozaar), 100 MG PO DAILY Metoprolol Succ (Toprol Xl) (Toprol-Xl ), 100 MG PO DAILY Multivitamins/Minerals (Mvi With Minerals), 1 TAB PO DAILY Nifedipine (Nifedipine Er), 1 TAB PO DAILY [place]-3 Fatty Acids (Fish Oil), 1,000 MG PO BID Psyllium (Metamucil Original Textur), 1 TBS PO BID Simvastatin (Simvastatin), 20 MG PO DAILY Scheduled PRN Acetaminophen (Tylenol), 500-1,000 MG PO DAILY PRN for sleep/pain Docusate Sodium (Docusate Sodium), 1 CAP PO DAILY PRN for Constipation Ipratropium-Albuterol (Combivent Respimat), 1 PUFF INH QID PRN for Shortness of Breath Allergies Coded Allergies: No Known Allergies (Unverified , 12/24/17) Physical Exam Vital Signs Date Time Temp Pulse Resp B/P (MAP) Pulse Ox O2 Delivery O2 Flow Rate FiO2 01/21/18 23:02 59 18 159/67 96 Room Air 01/21/18 21:41 36.6 68 20 163/91 95 Room Air Physical Exam GENERAL: Patient is in no acute distress. HEENT: Old bruising to the left face, mucous membranes moist, no nasal congestion. No scalp hematoma. NECK: No stridor, no adenopathy, no meningismus, trachea is midline. Nontender posterior c-spine. LUNGS: Clear to auscultation bilaterally, no wheeze, no rhonchi, breath sounds equal. HEART: Without murmurs gallops or rubs, regular rate and rhythm. ABDOMEN: Soft, mildly tender in LUQ, bowel sounds positive, no hernias, no peritonitis. EXTREMITIES: No cyanosis, full range of motion of all the joints without pain or difficulty, no signs for acute trauma. Moderate bilateral pedal edema. BACK: Contusion to left posterior inferior ribs. This area is tender with palpation. Pain worsens with movement. NEUROLOGIC: Oriented x 3, no acute motor or sensory deficits, no focal weakness. SKIN: No rash, no jaundice, no diaphoresis. Medical Decision & Procedures ER Provider Diagnostic Interpretation: Radiology results as stated below per my review and radiologist interpretation: AP CHEST WITH LEFT-SIDED RIB SERIES CLINICAL HISTORY: Fall. Left-sided chest wall pain. FINDINGS: 2 AP upright chest radiographs with 4 additional views from a left-sided rib series are compared to study dated 12/24/2017. The AP views are degraded by apical lordotic positioning. A 2-lead cardiac pacemaker is unchanged in position. The heart is mildly enlarged and there is atherosclerotic calcification of the thoracic aorta. The pulmonary vasculature is noncongested. Chronic interstitial thickening is similar to previous. There is no airspace consolidation or large pleural effusion. No pneumothorax is seen. The skeletal structures are osteopenic. There are acute and minimally distracted left posterior 8th and 9th rib fractures. No additional rib fracture is identified on the rib series. The remainder of the bony thorax is grossly intact. Advanced arthritic change is noted in the shoulders. Numerous calcified granulomas are seen in the spleen. IMPRESSION: 1. Cardiomegaly and cardiac pacemaker. There is no radiographic evidence of congestive failure. 2. No airspace consolidation, pleural effusion, or pneumothorax is identified. 3. There are acute and minimally distracted left posterior 8th and 9th rib fractures. Electronically signed by: Ronny Ordonez M.D. 01/21/2018 11:00 PM Dictated Date/Time: 01/21/2018 10:[address] ABDOMEN & PELVIS With Contrast: Small left effusion/hemothorax with adjacent atelectasis. Displaced left eighth through 10th rib fractures. No evidence of pneumothorax. Right lower lobe calcified granuloma. Small hiatal hernia. Cholelithiasis. Calcified granulomas in the spleen. Subcentimeter hypodensity in the right kidney. Bilateral hip arthroplasties limits evaluation of the pelvic soft tissues. No intra-abdominal free air or free fluid. Appendix is normal. Degenerative changes throughout the lumbar spine. Scoliotic curvature. No evidence of acute compression fracture. Radiologist: Humberto Westbrook DO Study ready at 23:42 and initial results transmitted at 23:57 Laboratory Results 01/21/18 22:20 01/21/18 22:20 Test 01/21/18 22:20 01/22/18 00:13 Red Blood Count 4.14 M/uL (4.2-5.4) Mean Corpuscular Volume 91.1 fL (80-100) Mean Corpuscular Hemoglobin 30.7 pg (25-34) Mean Corpuscular Hemoglobin Concent 33.7 g/dl (32-36) RDW Standard Deviation 45.4 fL (36.4-46.3) RDW Coefficient of Variation 13.8 % (11.5-14.5) Mean Platelet Volume 8.6 fL (7.4-10.4) Anion Gap 8.0 mmol/L (3-11) Est Creatinine Clear Calc Drug Dose 33.2 ml/min Estimated GFR () 45.3 Estimated GFR (Non- 39.1 BUN/Creatinine Ratio 14.9 (10-20) Calcium Level 9.4 mg/dl (8.5-10.1) Urine Color YELLOW Urine Appearance CLEAR (CLEAR) Urine pH 6.5 (4.5-7.5) Urine Specific [place] > 1.045 (1.000-1.030) Urine Protein NEG (NEG) Urine Glucose (UA) NEG (NEG) Urine Ketones NEG (NEG) Urine Occult Blood NEG (NEG) Urine Nitrite NEG (NEG) Urine Bilirubin NEG (NEG) Urine Urobilinogen NEG (NEG) Urine Leukocyte Esterase NEG (NEG) Laboratory results reviewed by me. Medications Administered Medications (Trade) Dose Ordered Sig/Jd Route Start Time Stop Time Status Last Admin Dose Admin Acetaminophen (Tylenol Tab) 1,000 mg NOW STAT PO 01/21/18 21:55 01/21/18 22:01 DC 01/21/18 22:17 1,000 MG ED Course 2153: The patient was evaluated in room B3B. A complete history and physical exam was performed. 2155: Ordered Tylenol 1,000 mg PO 2355: I reassessed the patient at this time. The patient is resting. 0020: I reassessed the patient at this time. She is resting comfortably. I discussed the results and treatment plan with the patient. I answered all pertaining questions that she had. She expressed understanding and verbalized agreement. The patient will be discharged home. 0022: As per nursing staff, the urine was not grossly bloody. Medical Decision The patient is a 82 year old female who presents to the ED with complaints of left abdominal pain. Differential diagnoses considered include rib fracture, pulmonary contusion, PNX, splenic injury, renal injury, hematuria, and extremity /head/neck trauma. There is no leukocytosis or concerning anemia. No significant electrolyte abnormality or kidney failure. As per the nursing staff, the urine collected was not grossly bloody, urinalysis does not show infection or blood. Left rib series shows no pneumothorax or pneumonia. There were fractures of the left eighth and ninth ribs. Abdominal and pelvis CT shows fractures of the eighth ninth and possibly 10th rib on the left. There was no pneumothorax. No splenic or renal injury noted. By exam, there was no evidence for injury to the head, neck, extremities. The patient was given oral Tylenol, she is resting comfortably. The patient is being discharged with ice, eventually some heat, Tylenol and rest. She will follow with her doctors office. If she becomes short of breath or feels worse, she can return for reassessment. Medication Reconcilliation Current Medication List: was personally reviewed by me Blood Pressure Screening Patient's blood pressure: Elevated blood pressure Blood pressure disposition: Referred to PCP Impression Primary Impression: Left rib fracture Additional Impression: Fall Scribe Attestation The scribe's documentation has been prepared under my direction and personally reviewed by me in its entirety. I confirm that the note above accurately reflects all work, treatment, procedures, and medical decision making performed by me. Departure Information Dispostion Home / Self-Care Referrals Chito Dunbar M.D. (PCP) Forms HOME CARE DOCUMENTATION FORM, IMPORTANT VISIT INFORMATION Patient Instructions My [facility] Additional Instructions tylenol for pain ice to the sore area for 30 minutes at a time for a few days and then after a few days switch over to using heat follow with eladio calixto for a recheck this week return for worsening breathing or if you are feeling short of breath Problem Qualifiers
[2018-01-21] MEDS ORDERED: NIFE60TA66 PO (22:29)
[2018-01-21] MEDS ORDERED: METO100T44 PO (22:29)
[2018-01-21] MEDS ORDERED: DOCU100C31 PO (22:29)
[2018-01-21 22:56] LABS: HEMATOCRIT 37.7 % (37-47); HEMOGLOBIN 12.7 g/dL (12.0-16.0); MEAN CELL VOLUME 91.1 fL (80-100); MEAN CORPUSCULAR HEMOGLOBIN 30.7 pg (25-34); MEAN CORPUSCULAR HGB CONC 33.7 g/dl (32-36); MEAN PLATELET VOLUME 8.6 fL (7.4-10.4); PLATELET COUNT 236 K/uL (130-400); RED CELL DISTRIBUTION WIDTH CV 13.8 % (11.5-14.5); RED CELL DISTRIBUTION WIDTH SD 45.4 fL (36.4-46.3); WHITE BLOOD COUNT 9.22 K/uL (4.8-10.8)
--- NOTE | 2018-01-21 23:01 | DIAGNOSTIC IMAGING REPORT ---
AP CHEST WITH LEFT-SIDED RIB SERIES CLINICAL HISTORY: Fall. Left-sided chest wall pain. FINDINGS: 2 AP upright chest radiographs with 4 additional views from a left-sided rib series are compared to study dated 12/24/2017. The AP views are degraded by apical lordotic positioning. A 2-lead cardiac pacemaker is unchanged in position. The heart is mildly enlarged and there is atherosclerotic calcification of the thoracic aorta. The pulmonary vasculature is noncongested. Chronic interstitial thickening is similar to previous. There is no airspace consolidation or large pleural effusion. No pneumothorax is seen. The skeletal structures are osteopenic. There are acute and minimally distracted left posterior 8th and 9th rib fractures. No additional rib fracture is identified on the rib series. The remainder of the bony thorax is grossly intact. Advanced arthritic change is noted in the shoulders. Numerous calcified granulomas are seen in the spleen. IMPRESSION: 1. Cardiomegaly and cardiac pacemaker. There is no radiographic evidence of congestive failure. 2. No airspace consolidation, pleural effusion, or pneumothorax is identified. 3. There are acute and minimally distracted left posterior 8th and 9th rib fractures. Electronically signed by: Ronny Ordonez M.D. 01/21/2018 11:00 PM Dictated Date/Time: 01/21/2018 10:56 PM
[2018-01-21 23:14] LABS: CALCIUM 9.4 mg/dl (8.5-10.1); CREATININE 1.26 mg/dl (0.60-1.20); POTASSIUM 4.2 mmol/L (3.5-5.1)
[2018-01-22 00:57] VITALS: BP 155/67; PULSE 60; O2SAT 94
--- NOTE | 2018-01-22 06:52 | DIAGNOSTIC IMAGING REPORT ---
CT ABD/PELVIS IV AND ORAL CONT CLINICAL HISTORY: Left-sided abdominal pain status post trauma COMPARISON STUDY: None. TECHNIQUE: Following the IV administration of 110 mL of Optiray-320, CT scan of the abdomen and pelvis was performed from the lung bases to the proximal femurs. Images are reviewed in the axial, sagittal, and coronal planes. IV contrast was administered without complication. A dose lowering technique was utilized adhering to the principles of ALARA. CT DOSE: 812.12 mGy.cm FINDINGS: Lower chest: There are fractures of the 11th, 10th, ninth, and eighth ribs. There is gas present within the left chest wall. There is a small hiatal hernia. There is a small left pleural effusion. Liver: The contrast-enhanced liver is normal in size, contour, and attenuation. There is no intrahepatic biliary ductal dilatation. The hepatic veins and portal veins are patent. Gallbladder: Cholelithiasis Spleen: There are multiple splenic granulomas. There is no CT evidence of acute splenic injury Pancreas: Unremarkable. Adrenal glands: Unremarkable. Kidneys: There is a 7 mm right renal hypodensity likely representing a cyst. There is no CT evidence of acute renal injury. Bowel: There are no transition zones indicate bowel obstruction. There is no evidence for interloop fluid. There are no extraluminal gas collections within the abdomen. There is mild fecal retention. Peritoneum: There is no intraperitoneal free air or abdominal ascites. Vasculature: The abdominal aorta is normal in course and caliber. Adenopathy: None. Pelvic viscera: The uterus is surgically absent Skeletal structures: There are bilateral total hip arthroplasties. There is a lumbar scoliosis. A mild superior L1 compression deformity is felt to be old. There is an elliptical subcutaneous fluid collection within the lower back just to the left of midline the L5 level. This measures 36 x 82 x 63 mm. IMPRESSION: 1. No evidence of acute intra-abdominal or pelvic injury 2. Acute fractures of the left eighth through 11th ribs. Small left pleural effusion. Associated extrapleural gas. 3. Subcutaneous fluid collection with thin the back just the left of midline measuring 36 x 82 x 63 mm. Electronically signed by: Nahun Arreola M.D. 01/22/2018 6:51 AM Dictated Date/Time: 01/22/2018 6:45 AM
== END 2018-01-22 00:57 | disposition home or self-care (01) ==
LOC: C.EDB 21:38
DX: S22.32XA Fracture of one rib, left side, initial encounter for closed fracture (principal); W19.XXXA Unspecified fall, initial encounter; J45.909 Unspecified asthma, uncomplicated; I10 Essential (primary) hypertension; Z83.3 Family history of diabetes mellitus; Z82.49 Family history of ischemic heart disease and other diseases of the circulatory system; Z87.891 Personal history of nicotine dependence; Z79.82 Long term (current) use of aspirin

== ENCOUNTER → 2018-06-05 | Outpatient (CLI) | payer BC ==
[~2018-06-05] MED LIST changes: +DOCU100C31 PO; -GFNSR600 PO; +METO100T44 PO; -MULTCAP33 PO; -PRD10 PO; -TPRSR/100 PO
[2018-06-05 13:49] LABS: HEMOGLOBIN A1C 7.1 % (4.5-5.6)
[2018-06-05 13:57] LABS: ALBUMIN 3.7 gm/dl (3.4-5.0); ALKALINE PHOSPHATASE 112 U/L (45-117); ALT/SGPT 24 U/L (12-78); AST/SGOT 22 U/L (15-37); BLOOD UREA NITROGEN 24 mg/dl (7-18); CALCIUM 9.4 mg/dl (8.5-10.1); CARBON DIOXIDE 33 mmol/L (21-32); CHOLESTEROL 168 mg/dl (0-200); CREATININE 1.16 mg/dl (0.60-1.20); GLUCOSE 113 mg/dl (70-99); LDL CHOLESTEROL (DIRECT) 93 mg/dl; POTASSIUM 3.9 mmol/L (3.5-5.1); SODIUM 138 mmol/L (136-145); TOTAL PROTEIN 7.4 gm/dl (6.4-8.2)
== END | disposition home or self-care (01) ==
LOC: C.LABSPEC 12:45
PROVIDERS: ATTEND Internal Medicine
DX: Z00.00 Encounter for general adult medical examination without abnormal findings (principal); E11.9 Type 2 diabetes mellitus without complications; I10 Essential (primary) hypertension; E78.5 Hyperlipidemia, unspecified

== ENCOUNTER 2019-02-02 07:04 | Inpatient (IN) ==
[2019-02-02] MEDS ORDERED: methylPREDNISolone 125 MG/2 ML VIAL IV STA (07:35)
[2019-02-02] MEDS ORDERED: ALBUT/IPRATROP 3MG/0.5MG NEB 3 ML VIAL NEB STA ×2 (07:35→09:32)
[2019-02-02] MEDS ORDERED: SODIUM CHLORIDE 0.9% 1000ML 500 ML IV SCH (07:45)
[2019-02-02 07:48] LABS: Basophils # (auto) 0.03 K/uL (0-0.2); Basophils % (auto) 0.2 %; Eosinophils # (auto) 0.15 K/uL (0-0.5); Eosinophils % (auto) 1.1 %; Hematocrit (blood only) 38.1 % (37-47); Hemoglobin 12.8 g/dL (12.0-16.0); Immature Granulocytes # (auto) 0.03 K/uL (0.00-0.02); Immature Granulocytes % (auto) 0.2 %; Lymphocytes # (auto) 1.21 K/uL (1.2-3.4); Lymphocytes % (auto) 8.9 %; Mean Corpuscular Hgb Conc 33.6 g/dL (32-36); Mean Corpuscular Volume 93.8 fL (80-100); Monocytes # (auto) 0.82 K/uL (0.11-0.59); Neutrophils # (auto) 11.34 K/uL (1.4-6.5); Neutrophils % (auto) 83.6 %; Platelet Count 212 K/uL (130-400); RDW Coefficient of Variation 12.6 % (11.5-14.5); RDW Standard Deviation 43.2 fL (36.4-46.3); Red Blood Count 4.06 M/uL (4.2-5.4); White Blood Count 13.58 K/uL (4.8-10.8)
[2019-02-02 07:55] LABS: Albumin Level 3.4 gm/dl (3.4-5.0); BUN Creatinine Ratio 15.8 (10-20); Calcium 9.6 mg/dl (8.5-10.1); Creatinine Clr Calc Pharmacy 34.1 ml/min; Est GFR (Non-African American) 38.8
[2019-02-02 08:00] LABS: Albumin Globulin Ratio 0.9 (0.9-2); Bilirubin,Total 0.5 mg/dl (0.2-1); Globulin 3.6 gm/dl (2.5-4.0); Troponin I 0.015 ng/ml (0-0.045)
--- NOTE | 2019-02-02 08:55 | XRay Report ---
SINGLE VIEW CHEST CLINICAL HISTORY: Wheezing. FINDINGS: An AP, portable, upright chest radiograph is compared to study dated 01/21/2018. A 2-lead car diac pacemaker is unchanged in position and partially obscures the left upper chest. The heart is enl arged and there is atherosclerotic calcification of the thoracic aorta. The pulmonary vasculature is noncongested. Chronic interstitial thickening is similar to previous. There is mild bibasilar atelect asis. No airspace consolidation or large pleural effusion is identified. A large calcified granuloma is again seen in the right lung base. No pneumothorax is seen. The skeletal structures are osteopenic . The bony thorax is grossly intact. Arthritic change is noted in the shoulders and thoracic spine. IMPRESSION: 1. Cardiomegaly and cardiac pacemaker. There is no radiographic evidence of congestive failure. 2. No airspace consolidation or large pleural effusion is identified. Electronically signed by: Ronny Ordonez M.D. 02/02/2019 8:54 AM
--- NOTE | 2019-02-02 09:23 | Emergency Department Note ---
ED Visit Note I took a history and physical from the patient. I coordinated management of the patient with Dr. Vogt. .
[2019-02-02 09:57] LABS: Appearance Urine Clear (Clear); Bilirubin Urine Negative (Negative); Blood Urine Negative (Negative); Color Urine Yellow; Glucose Urine UA Negative (Negative); Ketones Urine Negative (Negative); Leukocyte Esterase Urine Negative (Negative); Nitrite Urine Negative (Negative); Protein Urine Negative (Negative); Specific Gravity Urine 1.016 (1.000-1.030); Urobilinogen Urine Negative (Negative); pH Urine 7.5 (4.5-7.5)
--- NOTE | 2019-02-02 10:22 | History & Physical Report ---
Date of Service February 02, 2019 Assessment & Plan (1) Asthma exacerbation: May have underlying COPD as she has an extensive smoking history. Either way will treat with IV steroids, nebs, O2 if needed, mucinex, pulmonary toilet. Continue advair. Will recommend nebulizer with duonebs at discharge in [place] of combivent. Defer on antibiotics for now. Check flu PCR to be complete. Also recommend outpatient PFTs. Fortunately no pneumonia on chest imaging today. Present on Admission?: Yes (2) Edema: She has had weight gain in the last 2-3 months along with edema of the legs and abdominal swelling. I cannot rule out an element of CHF contributing to her presentation. Replace HCTZ with lasix. Check echo. Serial exams. Present on Admission?: Yes (3) Candidiasis of mouth and esophagus: 2nd to chronic advair use. nystatin 5cc ac/hs. Present on Admission?: Yes (4) Altered mental status: Likely metabolic in nature either from hypoxia, infection, or both. Either way it is already improved. Present on Admission?: Yes (5) Chronic kidney disease, stage III (moderate): creatinine stable today. BMP in am. Present on Admission?: Yes (6) HTN (hypertension): continue home medications. control adequate at this time. Present on Admission?: Yes (7) DM w/o complication type II, uncontrolled: This has likely been present for some time. Hemoglobin a1c is >7%. In light of high-dose steroid use will need basal-bolus insulin while here. Start lantus 10 units HS. Start novolog ac/hs -- correction factor 45; carb ratio 1:15. DM diet. I discussed this diagnosis with the patient. Will recommend oral agent at discharge. Pot Maker consult to provide nutritional counseling. Present on Admission?: Yes (8) Hyperlipidemia: Continue statin agent. Present on Admission?: Yes (9) DVT prophylaxis: heparin 5000 TID. daughter mentioned they would like for her to have short-term rehab at local SNF. will involve social work to assist with this. PT, OT lyly. total time about 70 minutes History of Present Illness Chief Complaint: shortness of breath Primary Care Provider: Chito Araujo MD 83yo female with history of prior tobacco use (1/2 or less per day for 40 years; quit age 63) and "asthma" x 15 years presents with dyspnea and wheezing starting yesterday. Her daughter visited with her at [facility] yesterday and noted the symptoms. This was associated with dry cough. Question of low-grade fever this AM at [facility]. She felt well earlier this week. She went out to dinner last pm with her family and ate well. No chest pain, abd pain, nausea, or vomiting. She took combivent last pm for some of her respiratory symptoms. She had some ankle edema much of the week but the swelling is improved today. By report she was confused this am at [facility] and also was confused upon arrival but her daughters at bedside state it is improved. In the ER she knew it was January but stated 2017. Knew it was Monday and she could name the 2 daughters w/ her. Allergies Allergy/AdvReac Type Severity Reaction Status Date / Time No Known Allergies Allergy Unverified 12/24/17 11:27 Home Medications Home Medications Medication Instructions Recorded Confirmed Type acetaminophen [Tylenol Extra 500 mg PO BID 02/02/19 02/02/19 History Strength] amoxicillin 2,000 mg PO UD 02/02/19 02/02/19 History aspirin 81 mg PO QAM 02/02/19 02/02/19 History calcium carbonate-vitamin D3 1 tab PO QAM 02/02/19 02/02/19 History [Oyster Shell Calcium-Vit D3] dextromethorphan-guaifenesin 1 - 2 tab-cap PO Q4H PRN 02/02/19 02/02/19 History [Coricidin HBP] docusate sodium [Colace] 100 mg PO QAM 02/02/19 02/02/19 History fluoxetine 20 mg PO BID 02/02/19 02/02/19 History fluticasone propion-salmeterol 1 puff INHALATION BID 02/02/19 02/02/19 History [Advair Diskus] hydrochlorothiazide 25 mg PO QAM 02/02/19 02/02/19 History ipratropium-albuterol [Combivent 1 puff INHALATION QID PRN 02/02/19 02/02/19 History Respimat] losartan 100 mg PO QAM 02/02/19 02/02/19 History metoprolol succinate 100 mg PO QAM 02/02/19 02/02/19 History multivitamin 1 tab PO QAM 02/02/19 02/02/19 History nifedipine 60 mg PO QAM 02/02/19 02/02/19 History omega 8-zcs-yxa-fish oil [Fish Oil] 1 cap PO BIDM 02/02/19 02/02/19 History psyllium husk [Metamucil] 1 tbsp PO PM 02/02/19 02/02/19 History simvastatin 20 mg PO QAM 02/02/19 02/02/19 History vit C,K-Ti-ufazk-lutein-zeaxan 1 tab PO BIDM 02/02/19 02/02/19 History [PreserVision AREDS-2] Past Med/Surg History Medical History Asthma Essential (primary) hypertension Frozen shoulder Hyperlipidemia Pacemaker Surgical History H/O bilateral cataract extraction History of left hip replacement History of right hip replacement History of total abdominal hysterectomy and bilateral salpingo-oophorectomy Family History Father Cancer laryngeal (smoker) Mother Ovarian cancer Social History Preferred Language: Georgian Communication Ability: Effective Pathology Laboratory Aides Teacher Required: No Beliefs That Will Affect Care: None marital status: Current Living Situation: Personal Care Facility Current Living Situation Comment: [facility] for over 1 year; prior to that was living in [place] current occupational status: 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) Other Information That Helps Us Care for You: No other: 2 daughters, 1 son Feels Safe at Home: Yes Smoking Status: Former smoker Hx Alcohol Use: Yes Hx Substance Use: No Review of Systems Constitutional: + fever and + weight gain (15 pounds over 3 months); no chills and no anorexia Eyes: no worsening vision Ear, Nose, Mouth, Throat: no nasal congestion, no sore throat and no dysphagia Respiratory: + cough, + chest congestion, + dyspnea on exertion and + wheezing; no sputum production Cardiovascular: + orthopnea, + paroxysmal nocturnal dyspnea and + edema; no chest pain Gastrointestinal: no abdominal pain, no nausea, no vomiting, no constipation and no blood in stools Genitourinary (Female): + urinary frequency and + nocturia Musculoskeletal: + back pain (for a few days) Integumentary: no rash Neurologic: + falls (1 month ago - bathroom at [facility]); no numbness Psychiatric: + depression no diabetes Hematologic / Lymphatic: + easy bruising Physical Exam Vital Signs (Past 24 Hours): Last Vital Signs Temp 37.3 C 02/02/19 07:08 Pulse 72 02/02/19 10:01 Resp 16 02/02/19 10:01 BP 144/65 H 02/02/19 10:01 Pulse Ox 85 L 02/02/19 09:39 Constitutional: well developed, well nourished and + obese; no acute distress, not ill appearing and no altered mental status Eyes: PERRL (lens implants b/l) ENMT: Ears: no TM abnormality Nose: no nasal discharge Mouth: + oral mucosal abnormality (thrush plaques on tongue and buccal mucosa) Neck: normal visual inspection and trachea midline Respiratory: normal respiratory effort; no respiratory distress and no labored breathing Auscultation: + rhonchi and + wheezes; no crackles Cardiovascular: Rate/Rhythm: regular rate and regular rhythm Heart Sounds: normal S1 and normal S2; no murmur Vessels: + JVD, posterior tibial pulses present and dorsalis pedis pulses present Extremities: + edema (1+ b/l; compression stockings in place) Gastrointestinal (Abdomen): normal bowel sounds, soft, nontender, no hepatosplenomegaly Musculoskeletal: no cyanosis or clubbing, extremities motor strength 5/5 Skin: no rashes, warm and dry Neurologic: deep tendon reflexes 2+ bilaterally Psychiatric: Orientation: alert Lymphatic: no cervical lymphadenopathy Results & Data Laboratory Results Laboratory Results - last 24 hr 02/02/19 02/02/19 02/02/19 07:24 07:24 07:24 WBC 13.58 H RBC 4.06 L Hgb 12.8 Hct 38.1 MCV 93.8 MCH 31.5 MCHC 33.6 RDW Std Deviation 43.2 RDW Coeff of [place] 12.6 Plt Count 212 MPV 9.0 Immature Gran % (Auto) 0.2 Neut % (Auto) 83.6 Lymph % (Auto) 8.9 Nicholas % (Auto) 6.0 Eos % (Auto) 1.1 Baso % (Auto) 0.2 Immature Gran # (Auto) 0.03 H Neut # (Auto) 11.34 H Lymph # (Auto) 1.21 Nicholas # (Auto) 0.82 H Eos # (Auto) 0.15 Baso # (Auto) 0.03 Sodium 139 Potassium 4.0 Chloride 102 Carbon Dioxide 30 Anion Gap 7.0 BUN 20 H Creatinine 1.26 H Est Cr Clr Drug Dosing 34.1 Est GFR ( Amer) 45.0 Est GFR (Non-Af Amer) 38.8 BUN/Creatinine Ratio 15.8 Glucose 172 H POC Glucose Estimat Average Glucose 166 Hemoglobin A1c 7.4 H Calcium 9.6 Magnesium Total Bilirubin 0.5 AST 18 ALT 22 Alkaline Phosphatase 119 H Troponin I 0.015 NT-Pro-B Natriuret Pep 1015 Total Protein 7.0 Albumin 3.4 Globulin 3.6 Albumin/Globulin Ratio 0.9 Urine Color Urine Appearance Urine pH Ur Specific [place] Urine Protein Urine Glucose (UA) Urine Ketones Urine Blood Urine Nitrite Urine Bilirubin Urine Urobilinogen Ur Leukocyte Esterase Influenza Type A Ag Influenza Type A (PCR) Influenza Type B Ag Influenza Type B (PCR) 02/02/19 02/02/19 02/02/19 07:24 08:32 09:37 WBC RBC Hgb Hct MCV MCH MCHC RDW Std Deviation RDW Coeff of [place] Plt Count MPV Immature Gran % (Auto) Neut % (Auto) Lymph % (Auto) Nicholas % (Auto) Eos % (Auto) Baso % (Auto) Immature Gran # (Auto) Neut # (Auto) Lymph # (Auto) Nicholas # (Auto) Eos # (Auto) Baso # (Auto) Sodium Potassium Chloride Carbon Dioxide Anion Gap BUN Creatinine Est Cr Clr Drug Dosing Est GFR ( Amer) Est GFR (Non-Af Amer) BUN/Creatinine Ratio Glucose POC Glucose Estimat Average Glucose Hemoglobin A1c Calcium Magnesium 1.8 Total Bilirubin AST ALT Alkaline Phosphatase Troponin I NT-Pro-B Natriuret Pep Total Protein Albumin Globulin Albumin/Globulin Ratio Urine Color Yellow Urine Appearance Clear Urine pH 7.5 Ur Specific [place] 1.016 Urine Protein Negative Urine Glucose (UA) Negative Urine Ketones Negative Urine Blood Negative Urine Nitrite Negative Urine Bilirubin Negative Urine Urobilinogen Negative Ur Leukocyte Esterase Negative Influenza Type A Ag Neg for Influ A Influenza Type A (PCR) Influenza Type B Ag Neg for Influ B Influenza Type B (PCR) 02/02/19 02/02/19 11:15 16:45 WBC RBC Hgb Hct MCV MCH MCHC RDW Std Deviation RDW Coeff of [place] Plt Count MPV Immature Gran % (Auto) Neut % (Auto) Lymph % (Auto) Nicholas % (Auto) Eos % (Auto) Baso % (Auto) Immature Gran # (Auto) Neut # (Auto) Lymph # (Auto) Nicholas # (Auto) Eos # (Auto) Baso # (Auto) Sodium Potassium Chloride Carbon Dioxide Anion Gap BUN Creatinine Est Cr Clr Drug Dosing Est GFR ( Amer) Est GFR (Non-Af Amer) BUN/Creatinine Ratio Glucose POC Glucose 286 H Estimat Average Glucose Hemoglobin A1c Calcium Magnesium Total Bilirubin AST ALT Alkaline Phosphatase Troponin I NT-Pro-B Natriuret Pep Total Protein Albumin Globulin Albumin/Globulin Ratio Urine Color Urine Appearance Urine pH Ur Specific [place] Urine Protein Urine Glucose (UA) Urine Ketones Urine Blood Urine Nitrite Urine Bilirubin Urine Urobilinogen Ur Leukocyte Esterase Influenza Type A Ag Influenza Type A (PCR) Neg for Influ A Influenza Type B Ag Influenza Type B (PCR) Neg for Influ B Diagnostic Findings cxr - IMPRESSION: 1. Cardiomegaly and cardiac pacemaker. There is no radiographic evidence of congestive failure. 2. No airspace consolidation or large pleural effusion is identified. EKG - my reading - atrial paced rhythm; no ST changes Code Status & VTE Plan Code Status level 5 DNR VTE Prophylaxis Plan VTE Prophylaxis will be ordered: Yes (1) Asthma exacerbation Asthma persistence: persistent Asthma severity: moderate Qualified Code(s): J45.41 - Moderate persistent asthma with (acute) exacerbation (2) Edema Edema type: unspecified Qualified Code(s): R60.9 - Edema, unspecified (3) Altered mental status Altered mental status type: disorientation Qualified Code(s): R41.0 - Disorientation, unspecified (4) HTN (hypertension) Hypertension type: essential hypertension Qualified Code(s): I10 - Essential (primary) hypertension (5) DM 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 (6) Hyperlipidemia Hyperlipidemia type: mixed hyperlipidemia Qualified Code(s): E78.2 - Mixed hyperlipidemia
--- NOTE | 2019-02-02 11:04 | Emergency Department Note ---
Entered by Patsy Wren acting as a scribe for Max Vogt MD History of Present Illness General Chief complaint: Shortness of Breath/Dyspnea Stated complaint: sob Time Seen by Provider: 02/02/19 07:07 Source: patient, family and EMS Mode of arrival: EMS Limitations: no limitations History of Present Illness Onset (ago): day(s) 1 Location: chest Radiation: non-radiation Pain Consistency: + constant Relieved By: + other (inhaler) Exacerbated By: + movement Associated symptoms: + cough and + other (+fatigue) Treatments prior to arrival: other (inhalers) The patient is an 83 year old female who presents to the Emergency Room with complaints of worsening shortness of breath since yesterday. She was brought to the ED via EMS. Her family states they went on a walk yesterday evening and noticed the patient was wheezing after the walk. She has a history of asthma and had pneumonia in September. She uses Advair and other inhalers as needed. She has had a nonproductive cough and increased fatigue. She does not wear Oxygen. The patient is a former smoker. She has no previous cardiac history. Home Medications Home Medications Medication Instructions Recorded Confirmed Type acetaminophen [Tylenol Extra 500 mg PO BID 02/02/19 02/02/19 History Strength] amoxicillin 2,000 mg PO UD 02/02/19 02/02/19 History aspirin 81 mg PO QAM 02/02/19 02/02/19 History calcium carbonate-vitamin D3 1 tab PO QAM 02/02/19 02/02/19 History [Oyster Shell Calcium-Vit D3] dextromethorphan-guaifenesin 1 - 2 tab-cap PO Q4H PRN 02/02/19 02/02/19 History [Coricidin HBP] docusate sodium [Colace] 100 mg PO QAM 02/02/19 02/02/19 History fluoxetine 20 mg PO BID 02/02/19 02/02/19 History fluticasone propion-salmeterol 1 puff INHALATION BID 02/02/19 02/02/19 History [Advair Diskus] hydrochlorothiazide 25 mg PO QAM 02/02/19 02/02/19 History ipratropium-albuterol [Combivent 1 puff INHALATION QID PRN 02/02/19 02/02/19 History Respimat] losartan 100 mg PO QAM 02/02/19 02/02/19 History metoprolol succinate 100 mg PO QAM 02/02/19 02/02/19 History multivitamin 1 tab PO QAM 02/02/19 02/02/19 History nifedipine 60 mg PO QAM 02/02/19 02/02/19 History omega 3-ptb-rhe-fish oil [Fish Oil] 1 cap PO BIDM 02/02/19 02/02/19 History psyllium husk [Metamucil] 1 tbsp PO PM 02/02/19 02/02/19 History simvastatin 20 mg PO QAM 02/02/19 02/02/19 History vit C,H-Vc-vouai-lutein-zeaxan 1 tab PO BIDM 02/02/19 02/02/19 History [PreserVision AREDS-2] Allergies Allergy/AdvReac Type Severity Reaction Status Date / Time No Known Allergies Allergy Unverified 12/24/17 11:27 Past Med/Surg History Medical History Asthma Essential (primary) hypertension Frozen shoulder Hyperlipidemia Pacemaker Surgical History History of left hip replacement History of right hip replacement History of total abdominal hysterectomy and bilateral salpingo-oophorectomy Social History marital status: Current Living Situation: Personal Care Facility Current Living Situation Comment: [facility] for over 1 year; prior to that was living in [place] current occupational status: 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 and A total of 10 systems reviewed and were otherwise negative Physical Exam Vital Signs Vital Signs - 24 hr 02/02/19 07:08 02/02/19 07:09 02/02/19 07:32 Temperature 37.3 C Temperature Source Oral Sepsis Recent Fever Within 48 Hours No Sepsis New/Unexplained Change in Mental Status No Sepsis Action Taken by Nursing No Action Required Pulse Rate 84 84 69 Pulse Rate [Exercises] Pulse Rate from SpO2 Sensor 79 68 Respiratory Rate 22 23 21 Blood Pressure 154/75 H 154/75 H 146/68 H Blood Pressure Mean 101 101 94 Pulse Oximetry 93 92 93 Pulse Oximetry [Exercises] Oxygen Delivery Method Room Air 02/02/19 08:31 02/02/19 09:01 02/02/19 09:37 Temperature Temperature Source Sepsis Recent Fever Within 48 Hours Sepsis New/Unexplained Change in Mental Status Sepsis Action Taken by Nursing Pulse Rate 77 76 72 Pulse Rate [Exercises] Pulse Rate from SpO2 Sensor 77 72 Respiratory Rate 15 22 24 Blood Pressure 156/68 H 150/67 H 175/64 H Blood Pressure Mean 97 94 101 Pulse Oximetry 93 92 Pulse Oximetry [Exercises] Oxygen Delivery Method 02/02/19 09:39 02/02/19 10:00 02/02/19 10:01 Temperature Temperature Source Sepsis Recent Fever Within 48 Hours Sepsis New/Unexplained Change in Mental Status Sepsis Action Taken by Nursing Pulse Rate 74 72 Pulse Rate [Exercises] 92 H Pulse Rate from SpO2 Sensor Respiratory Rate 25 H 16 Blood Pressure 144/65 H Blood Pressure Mean 91 Pulse Oximetry Pulse Oximetry [Exercises] 85 L Oxygen Delivery Method Room Air GENERAL: Awake, alert, well-appearing, in no distress HENT: Normocephalic, atraumatic. Oropharynx unremarkable. EYES: Normal conjunctiva. Sclera non-icteric. NECK: Supple. No nuchal rigidity. FROM. No masses. RESPIRATORY: Clear to auscultation. Slight wheezes at the bases. No rales. Normal respiratory effort. CARDIAC: Normal rate. Normal rhythm. No murmurs. No rubs. Extremities warm and well perfused. Pulses equal. No JVD. GI: Soft, non-distended. No tenderness to palpation. No rebound or guarding. No masses. RECTAL: Deferred. MUSCULOSKELETAL: Atraumatic. Chest examination reveals no tenderness. The back is symmetrical on inspection without obvious abnormality. There is no CVA tenderness to palpation. No joint edema. LOWER EXTREMITIES: Calves are equal size bilaterally and non-tender. No edema. No discoloration. NEURO: Normal sensorium. No sensory or motor deficits noted. Course 0738: The patient was evaluated in room B2, and a complete history and physical examination were performed. 0928: Nursing informed me the patient is 85% on RA. I will contact the hospital medicine team. 0938: I [facility] the patients [facility] The patient will be further evaluated. Consultations Consultation #1: I discussed the patients [facility] The patient will be further evaluated. Time: 09:38 Administered Medications Discontinued Medications Albuterol (Duoneb) 3 ml NEB NOW STA Stop: 02/02/19 07:36 Last Admin: 02/02/19 07:52 Dose: 3 ml Documented by: [id number] Albuterol (Duoneb) 3 ml NEB NOW STA Stop: 02/02/19 09:33 Last Admin: 02/02/19 10:19 Dose: 3 ml Documented by: [id number] Sodium Chloride (Nss 1000ml) 500 mls @ 999 mls/hr IV .Q31M DONN Stop: 02/02/19 08:15 Last Infusion: 02/02/19 08:23 Dose: 0 mls/hr Documented by: [id number] Admin: 02/02/19 07:52 Dose: 999 mls/hr Documented by: [id number] Methylprednisolone (Solumedrol) 60 mg IV NOW STA Stop: 02/02/19 07:36 Last Admin: 02/02/19 07:52 Dose: 60 mg Documented by: [id number] Medical Decision Making Differential Diagnosis Differential diagnoses includes but is not limited to pneumonia, bronchitis, COPD/Asthma exacerbation, pneumothorax, pulmonary embolism, congestive heart failure, acute coronary syndrome Medical Records Attestation: I reviewed the patient's medical records. Home Medications Current Medication List: was personally reviewed by me Laboratory Data Attestation: I reviewed the patient's lab results. Result diagrams: 02/02/19 07:24 02/02/19 07:24 Lab Results 02/02/19 02/02/19 02/02/19 Range/Units 07:24 07:24 08:32 WBC 13.58 H (4.8-10.8) K/uL RBC 4.06 L (4.2-5.4) M/uL Hgb 12.8 (12.0-16.0) g/dL Hct 38.1 (37-47) % MCV 93.8 (80-100) fL MCH 31.5 (25-34) pg MCHC 33.6 (32-36) g/dL RDW Std Deviation 43.2 (36.4-46.3) fL RDW Coeff of [place] 12.6 (11.5-14.5) % Plt Count 212 (130-400) K/uL MPV 9.0 (7.4-10.4) fL Immature Gran % (Auto) 0.2 % Neut % (Auto) 83.6 % Lymph % (Auto) 8.9 % Hand % (Auto) 6.0 % Eos % (Auto) 1.1 % Baso % (Auto) 0.2 % Immature Gran # (Auto) 0.03 H (0.00-0.02) K/uL Neut # (Auto) 11.34 H (1.4-6.5) K/uL Lymph # (Auto) 1.21 (1.2-3.4) K/uL Hand # (Auto) 0.82 H (0.11-0.59) K/uL Eos # (Auto) 0.15 (0-0.5) K/uL Baso # (Auto) 0.03 (0-0.2) K/uL Sodium 139 (136-145) mmol/L Potassium 4.0 (3.5-5.1) mmol/L Chloride 102 (98-107) mmol/L Carbon Dioxide 30 (21-32) mmol/L Anion Gap 7.0 (3-11) BUN 20 H (7-18) mg/dl Creatinine 1.26 H (0.6-1.2) mg/dl Est Cr Clr Drug Dosing 34.1 ml/min Est GFR ( Amer) 45.0 Est GFR (Non-Af Amer) 38.8 BUN/Creatinine Ratio 15.8 (10-20) Glucose 172 H (70-99) mg/dl Calcium 9.6 (8.5-10.1) mg/dl Total Bilirubin 0.5 (0.2-1) mg/dl AST 18 (15-37) U/L ALT 22 (12-78) U/L Alkaline Phosphatase 119 H (45-117) U/L Troponin I 0.015 (0-0.045) ng/ml NT-Pro-B Natriuret Pep 1015 (0-1800) pg/ml Total Protein 7.0 (6.4-8.2) gm/dl Albumin 3.4 (3.4-5.0) gm/dl Globulin 3.6 (2.5-4.0) gm/dl Albumin/Globulin Ratio 0.9 (0.9-2) Urine Color Urine Appearance (Clear) Urine pH (4.5-7.5) Ur Specific [place] (1.000-1.030) Urine Protein (Negative) Urine Glucose (UA) (Negative) Urine Ketones (Negative) Urine Blood (Negative) Urine Nitrite (Negative) Urine Bilirubin (Negative) Urine Urobilinogen (Negative) Ur Leukocyte Esterase (Negative) Influenza Type A Ag Neg for Influ A (Neg) Influenza Type B Ag Neg for Influ B (Neg) 02/02/19 Range/Units 09:37 WBC (4.8-10.8) K/uL RBC (4.2-5.4) M/uL Hgb (12.0-16.0) g/dL Hct (37-47) % MCV (80-100) fL MCH (25-34) pg MCHC (32-36) g/dL RDW Std Deviation (36.4-46.3) fL RDW Coeff of [place] (11.5-14.5) % Plt Count (130-400) K/uL MPV (7.4-10.4) fL Immature Gran % (Auto) % Neut % (Auto) % Lymph % (Auto) % Hand % (Auto) % Eos % (Auto) % Baso % (Auto) % Immature Gran # (Auto) (0.00-0.02) K/uL Neut # (Auto) (1.4-6.5) K/uL Lymph # (Auto) (1.2-3.4) K/uL Hand # (Auto) (0.11-0.59) K/uL Eos # (Auto) (0-0.5) K/uL Baso # (Auto) (0-0.2) K/uL Sodium (136-145) mmol/L Potassium (3.5-5.1) mmol/L Chloride (98-107) mmol/L Carbon Dioxide (21-32) mmol/L Anion Gap (3-11) BUN (7-18) mg/dl Creatinine (0.6-1.2) mg/dl Est Cr Clr Drug Dosing ml/min Est GFR ( Amer) Est GFR (Non-Af Amer) BUN/Creatinine Ratio (10-20) Glucose (70-99) mg/dl Calcium (8.5-10.1) mg/dl Total Bilirubin (0.2-1) mg/dl AST (15-37) U/L ALT (12-78) U/L Alkaline Phosphatase (45-117) U/L Troponin I (0-0.045) ng/ml NT-Pro-B Natriuret Pep (0-1800) pg/ml Total Protein (6.4-8.2) gm/dl Albumin (3.4-5.0) gm/dl Globulin (2.5-4.0) gm/dl Albumin/Globulin Ratio (0.9-2) Urine Color Yellow Urine Appearance Clear (Clear) Urine pH 7.5 (4.5-7.5) Ur Specific [place] 1.016 (1.000-1.030) Urine Protein Negative (Negative) Urine Glucose (UA) Negative (Negative) Urine Ketones Negative (Negative) Urine Blood Negative (Negative) Urine Nitrite Negative (Negative) Urine Bilirubin Negative (Negative) Urine Urobilinogen Negative (Negative) Ur Leukocyte Esterase Negative (Negative) Influenza Type A Ag (Neg) Influenza Type B Ag (Neg) Imaging Data Radiologist's Impression: Radiology results as stated below per my review and the radiologist's interpretation: SINGLE VIEW CHEST CLINICAL HISTORY: Wheezing. FINDINGS: An AP, portable, upright chest radiograph is compared to study dated 01/21/2018. A 2-lead cardiac pacemaker is unchanged in position and partially obscures the left upper chest. The heart is enlarged and there is at herosclerotic calcification of the thoracic aorta. The pulmonary vasculature is noncongested. Chronic interstitial thickening is similar to previous. There is mild bibasilar atelectasis. No airspace consolidation or large pleural effusion is identified. A large calcified granuloma is again seen in the right lung base. No pneumothorax is seen. The skeletal structures are osteopenic. The bony thorax is grossly intact. Arthritic change is noted in the shoulders and thoracic spine. IMPRESSION: 1. Cardiomegaly and cardiac pacemaker. There is no radiographic evidence of congestive failure. 2. No airspace consolidation or large pleural effusion is identified. Electronically signed by: Ronny Ordonez M.D. 02/02/2019 8:54 AM ECG Data Attestation: I personally reviewed and interpreted this ECG as follows: Indication: SOB/dyspnea Rate (beats per minute): 77 Rhythm: other (Paced rhythm) Findings: no ST depression and no ST elevation Blood Pressure Blood Pressure Findings: Elevated blood pressure Blood Pressure Disposition: further management by hospitalist JORDEN Narrative This is an 83-year-old female who presents emergency department complaining of hypoxia. Patient has a history of asthma. She was given an hour-long breathing treatment here in the emergency department. Her chest x-ray does not show any evidence of acute process therefore the patient was started on Solu-Medrol. She remains hypoxic and was ambulated. Patient is extremely short of breath. For this reason she was discussed with the hospitalist service who agreed to admit the patient. Patient family were in agreement with the treatment plan. Impression & Plan Hypoxia, COPD exacerbation Discharge Plan Visit Data Chief Complaint: Shortness of Breath/Dyspnea Stated Complaint: sob ED Provider: Max Vogt ED Midlevel Provider: Ronni Feldman Discharge Problem: Hypoxia, COPD exacerbation Patient Disposition: Being Evaluated by Hospitalist Forms Stand Alone Forms: [facility] [place] [employer] Prescriptions Prescriptions: No Action multivitamin Tablet 1 tab PO QAM RF: 0 amoxicillin 500 mg capsule 2,000 mg PO UD RF: 0 Coricidin HBP 10-200 mg Capsule 1 - 2 tab-cap PO Q4H PRN (Reason: Congestion) RF: 0 metoprolol succinate 100 mg tablet extended release 24 hr 100 mg PO QAM RF: 0 aspirin 81 mg Tablet,Delayed Release (Dr/Ec) 81 mg PO QAM RF: 0 acetaminophen [Tylenol Extra Strength] 500 mg Tablet 500 mg PO BID RF: 0 nifedipine 60 mg tablet extended release 24hr 60 mg PO QAM RF: 0 simvastatin 20 mg tablet 20 mg PO QAM RF: 0 fluticasone propion-salmeterol [Advair Diskus] 500-50 mcg/dose blister with device 1 puff inhalation BID RF: 0 docusate sodium [Colace] 100 mg Capsule 100 mg PO QAM RF: 0 hydrochlorothiazide 25 mg tablet 25 mg PO QAM RF: 0 losartan 100 mg tablet 100 mg PO QAM RF: 0 fluoxetine 20 mg capsule 20 mg PO BID RF: 0 calcium carbonate-vitamin D3 [Oyster Shell Calcium-Vit D3] 500 mg(1,250mg) - 200 unit Tablet 1 tab PO QAM RF: 0 omega 7-vwg-yhv-fish oil [Fish Oil] 1,000 mg (120 mg-180 mg) Capsule 1 cap PO BIDM RF: 0 PreserVision AREDS-2 [id number] no-phha-ur-mg Capsule 1 tab PO BIDM RF: 0 Combivent Respimat 20-100 mcg/actuation Mist 1 puff INHALATION QID PRN (Reason: Shortness Of Breath Or Wheezing) RF: 0 Metamucil 3.4 gram/5.4 gram Powder 1 tbsp PO PM RF: 0 Referrals Referrals: Chito Araujo MD [Primary Care Provider] - The scribe's documentation has been prepared under my direction and personally reviewed by me in its entirety. I confirm that the note above accurately reflects all work, treatment, procedures, and medical decision making performed by me.
[2019-02-02 11:55] LABS: Influenza A virus by PCR Neg for Influ A (Neg); Influenza B virus by PCR Neg for Influ B (Neg)
[2019-02-02 12:19] LABS: Estimated Average Glucose 166 mg/dl; Hemoglobin A1C 7.4 % (4.5-5.6)
[2019-02-02] MEDS ORDERED: ONDANSETRON INJ 2 MG/ML 2 ML VIAL IV PRN (12:36)
[2019-02-02] MEDS: guaiFENesin 600 MG TABCR PO SCH ×2 (14:15→21:26)
[2019-02-02] MEDS: FUROSEMIDE 20 MG TAB PO SCH (14:15)
[2019-02-02] MEDS: ACETAMINOPHEN 500 MG TAB PO SCH ×2 (14:16→21:25)
[2019-02-02] MEDS: methylPREDNISolone 40 MG in SYRINGE 0 ML IV SCH ×2 (14:16→21:22)
[2019-02-02] MEDS: FLUOXETINE HCL 20 MG CAP PO SCH ×2 (14:17→21:25)
[2019-02-02] MEDS: NYSTATIN SUSP 500,000 U/5 ML UDC PO SCH ×3 (14:19→21:23)
[2019-02-02] MEDS: HEPARIN SOD 5,000 UNIT/0.5 ML VIAL SQ SCH ×2 (14:20→21:24)
[2019-02-02] MEDS: ALBUT/IPRATROP 3MG/0.5MG NEB 3 ML VIAL NEB SCH ×2 (16:00→19:20)
[2019-02-02] MEDS ORDERED: INSULIN GLARGINE SOLOSTAR 100 UNITS/ML 3 ML PEN SC SCH (21:00)
[2019-02-02] MEDS: FLUTICASONE/SALMETEROL (ADVAIR) 500/50 INH 14 PUFF INH SCH (21:22)
[2019-02-02] MEDS: METOPROLOL SUCC 50MG EXT REL TAB PO SCH (21:23)
[2019-02-02] MEDS: PSYLLIUM 58.6% POWDER PACKET PO SCH (21:24)
[2019-02-02] MEDS: INSULIN ASPART 100 UNITS/ML 3 ML PEN SC SCH (21:29)
[2019-02-03] MEDS: methylPREDNISolone 40 MG in SYRINGE 0 ML IV SCH ×4 (02:09→21:19)
[2019-02-03] MEDS: HEPARIN SOD 5,000 UNIT/0.5 ML VIAL SQ SCH ×3 (06:27→21:21)
[2019-02-03 07:19] LABS: BUN Creatinine Ratio 20.3 (10-20); Creatinine Clr Calc Pharmacy 38.8 ml/min; Est GFR (Non-African American) 45.7; Potassium 3.7 mmol/L (3.5-5.1)
[2019-02-03] MEDS: FLUTICASONE/SALMETEROL (ADVAIR) 500/50 INH 14 PUFF INH SCH ×2 (07:38→21:14)
[2019-02-03] MEDS: guaiFENesin 600 MG TABCR PO SCH ×2 (07:39→21:16)
[2019-02-03] MEDS: LOSARTAN POTASSIUM 50 MG TAB PO SCH (07:39)
[2019-02-03] MEDS: CEROVITE ADV FORMULA TAB PO SCH (07:39)
[2019-02-03] MEDS: NIFEdipine EXTENDED REL 30 MG TABCR PO SCH (07:39)
[2019-02-03] MEDS: CALCIUM 600MG + VIT D 400 IU TAB PO SCH (07:41)
[2019-02-03] MEDS: SIMVASTATIN 20 MG TAB PO SCH (07:41)
[2019-02-03] MEDS: DOCUSATE SODIUM 100 MG CAP PO SCH (07:41)
[2019-02-03] MEDS: POLYETHYLENE (MIRALAX) 17 GM PACK PO SCH (07:43)
[2019-02-03] MEDS: FUROSEMIDE 20 MG TAB PO SCH (07:45)
[2019-02-03] MEDS: FLUOXETINE HCL 20 MG CAP PO SCH ×2 (07:46→21:18)
[2019-02-03] MEDS: MULTIVITAMIN TAB PO SCH (07:46)
[2019-02-03] MEDS: ASPIRIN 81 MG ECTAB PO SCH (07:47)
[2019-02-03] MEDS: ACETAMINOPHEN 500 MG TAB PO SCH ×3 (07:47→21:18)
[2019-02-03] MEDS: NYSTATIN SUSP 500,000 U/5 ML UDC PO SCH ×4 (07:48→21:17)
[2019-02-03] MEDS: INSULIN ASPART 100 UNITS/ML 3 ML PEN SC SCH ×4 (07:52→22:10)
[2019-02-03] MEDS: ALBUT/IPRATROP 3MG/0.5MG NEB 3 ML VIAL NEB SCH ×4 (08:08→19:30)
[2019-02-03] MEDS: INSULIN GLARGINE SOLOSTAR 100 UNITS/ML 3 ML PEN SC SCH (21:15)
[2019-02-03] MEDS: PSYLLIUM 58.6% POWDER PACKET PO SCH (21:16)
--- NOTE | 2019-02-03 21:22 | Hospitalist Progress Note ---
Date of Service February 03, 2019 Assessment & Plan (1) Asthma exacerbation: IMPROVING nicely. Cut steroids to q12h dosing. May have underlying COPD as she has an extensive smoking history. Cont nebs, mucinex, pulmonary toilet. Continue advair. Defer on antibiotics for now. Will recommend nebulizer with duonebs at discharge in [place] of combivent. Also recommend outpatient PFTs. (2) Edema: She has had weight gain in the last 2-3 months along with edema of the legs and abdominal swelling. Echo w/ preserved EF but grade 2 diastolic dysfunction. Cannot rule out that diastolic dysfunction played a role in her edema. [id number] continue lasix in [place] of HCTZ. Edema is improving. (3) Candidiasis of mouth and esophagus: IMPROVED. 2nd to chronic advair use. nystatin 5cc ac/hs. (4) Altered mental status: Likely metabolic either from hypoxia, infection, or both. Either way it is resolved. (5) Chronic kidney disease, stage III (moderate): creatinine again stable today. BMP in am. (6) HTN (hypertension): continue home medications. control adequate at this time. (7) DM w/o complication type II, uncontrolled: UNCONTROLLED due to steroids. Hemoglobin a1c is >7%. Increase lantus to 15 units HS. Adjust novolog correction factor 45 and carb ratio. Will recommend oral agent(s) at discharge. Sales Agent Trading Stamps consult to provide nutritional counseling. Diabetes education consult. (8) Hyperlipidemia: Continue statin agent. (9) DVT prophylaxis: heparin 5000 TID. daughter mentioned they would like for her to have short-term rehab at local SNF. will involve social work to assist with this. PT, OT lyly. progressing nicely Subjective feeling much better. less cough. less wheeze. no dyspnea. daughter at bedside during my visit - confirms her mother's mentation has returned to baseline. pt/family still desiring SNF for rehab, then ultimate return to [facility]. no new issues. Constitutional: no fever and no chills Respiratory: + cough; no dyspnea and no pain on inspiration Cardiovascular: no chest pain Physical Exam Vital Signs (Past 24 Hours): Last Vital Signs Temp 36.5 C 02/03/19 20:17 Pulse 76 02/03/19 20:17 Resp 20 02/03/19 20:17 BP 117/76 02/03/19 20:17 Pulse Ox 91 02/03/19 20:17 Constitutional: well developed and well nourished; no acute distress and not ill appearing ENMT: external ear and nose normal, oropharynx normal thrush on buccal mucosa already improved Respiratory: normal respiratory effort; no respiratory distress Auscultation: + wheezes (mild b/l); no rales Cardiovascular: Rate/Rhythm: regular rate and regular rhythm Heart Sounds: normal S1 and normal S2 Vessels: no JVD Extremities: + edema (<1+ b/l) Gastrointestinal (Abdomen): normal bowel sounds, soft, nontender, no hepatosplenomegaly Psychiatric: A+Ox3, euthymic affect Results & Data Laboratory Results Laboratory Results - last 24 hr 02/02/19 02/03/19 02/03/19 21:19 06:10 11:26 Sodium 134 L Potassium 3.7 Chloride 101 Carbon Dioxide 30 Anion Gap 3.0 BUN 22 H Creatinine 1.10 Est Cr Clr Drug Dosing 38.8 Est GFR ( Amer) 53.0 Est GFR (Non-Af Amer) 45.7 BUN/Creatinine Ratio 20.3 H Glucose 195 H POC Glucose 284 H 184 H Calcium 9.0 02/03/19 02/03/19 16:28 20:29 Sodium Potassium Chloride Carbon Dioxide Anion Gap BUN Creatinine Est Cr Clr Drug Dosing Est GFR ( Amer) Est GFR (Non-Af Amer) BUN/Creatinine Ratio Glucose POC Glucose 239 H 203 H Calcium Diagnostic Findings echo - preserved EF; grade 2 diastolic dysfunction (1) Asthma exacerbation Asthma persistence: persistent Asthma severity: moderate Qualified Code(s): J45.41 - Moderate persistent asthma with (acute) exacerbation (2) Edema Edema type: unspecified Qualified Code(s): R60.9 - Edema, unspecified (3) Hyperlipidemia Hyperlipidemia type: mixed hyperlipidemia Qualified Code(s): E78.2 - Mixed hyperlipidemia (4) Altered mental status Altered mental status type: disorientation Qualified Code(s): R41.0 - Disorientation, unspecified (5) HTN (hypertension) Hypertension type: essential hypertension Qualified Code(s): I10 - Essential (primary) hypertension (6) DM 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
[2019-02-04] MEDS: HEPARIN SOD 5,000 UNIT/0.5 ML VIAL SQ SCH ×3 (06:03→21:01)
[2019-02-04 06:41] LABS: BUN Creatinine Ratio 25.5 (10-20); Calcium 9.1 mg/dl (8.5-10.1); Creatinine Clr Calc Pharmacy 32.8 ml/min; Est GFR (African American) 42.9; Potassium 4.5 mmol/L (3.5-5.1)
[2019-02-04] MEDS: ALBUT/IPRATROP 3MG/0.5MG NEB 3 ML VIAL NEB SCH ×4 (06:57→19:02)
[2019-02-04] MEDS: INSULIN ASPART 100 UNITS/ML 3 ML PEN SC SCH ×4 (08:54→21:00)
[2019-02-04] MEDS: POLYETHYLENE (MIRALAX) 17 GM PACK PO SCH (08:54)
[2019-02-04] MEDS: ACETAMINOPHEN 500 MG TAB PO SCH ×3 (08:55→20:16)
[2019-02-04] MEDS: FLUOXETINE HCL 20 MG CAP PO SCH ×2 (08:55→20:17)
[2019-02-04] MEDS: FLUTICASONE/SALMETEROL (ADVAIR) 500/50 INH 14 PUFF INH SCH ×2 (08:55→20:15)
[2019-02-04] MEDS: NIFEdipine EXTENDED REL 30 MG TABCR PO SCH (08:56)
[2019-02-04] MEDS: LOSARTAN POTASSIUM 50 MG TAB PO SCH (08:56)
[2019-02-04] MEDS: CEROVITE ADV FORMULA TAB PO SCH (08:56)
[2019-02-04] MEDS: guaiFENesin 600 MG TABCR PO SCH ×2 (08:56→20:16)
[2019-02-04] MEDS: ASPIRIN 81 MG ECTAB PO SCH (08:56)
[2019-02-04] MEDS: MULTIVITAMIN TAB PO SCH (08:56)
[2019-02-04] MEDS: FUROSEMIDE 20 MG TAB PO SCH (08:56)
[2019-02-04] MEDS: METOPROLOL SUCC 50MG EXT REL TAB PO SCH (08:56)
[2019-02-04] MEDS: DOCUSATE SODIUM 100 MG CAP PO SCH (08:56)
[2019-02-04] MEDS: CALCIUM 600MG + VIT D 400 IU TAB PO SCH (08:56)
[2019-02-04] MEDS: NYSTATIN SUSP 500,000 U/5 ML UDC PO SCH ×4 (08:57→20:18)
[2019-02-04] MEDS: SIMVASTATIN 20 MG TAB PO SCH (08:57)
[2019-02-04] MEDS: methylPREDNISolone 40 MG in SYRINGE 0 ML IV SCH (08:57)
--- NOTE | 2019-02-04 09:33 | Hospitalist Progress Note ---
Date of Service February 04, 2019 Assessment & Plan (1) Asthma exacerbation: Resolving, taper steroids to p.o. when able May have underlying COPD as she has an extensive smoking history. Cont nebs, mucinex, pulmonary toilet. Continue advair. Defer on antibiotics for now. Will recommend nebulizer with duonebs at discharge patient may be transitioned to correction facility Also recommend outpatient PFTs. An outpatient pulmonary follow-up (2) Edema: She has had weight gain in the last 2-3 months along with edema of the legs and abdominal swelling. Echo w/ preserved EF but grade 2 diastolic dysfunction. Cannot rule out that diastolic dysfunction played a role in her edema. He also be cor pulmonale if she is got chronic hypoxic lung disease. Continue furosemide diuretic therapy (3) Candidiasis of mouth and esophagus: IMPROVED. 2nd to chronic advair use. Instructed the patient on good oral hygiene after using inhaled medications especially steroids nystatin 5cc ac/hs. (4) Altered mental status: metabolic encephalopahty, either from hypoxia, infection, or both. Either way it is resolved. (5) Chronic kidney disease, stage III (moderate): creatinine again stable BMP in am. (6) HTN (hypertension): continue Lasix, losartan, nifedipine, metoprolol. control adequate at this time. (7) DM w/o complication type II, uncontrolled: UNCONTROLLED due to steroids. Hemoglobin a1c is >7%. Increase lantus to 15 units HS. Adjust novolog correction factor 45 and carb ratio. Consider transition to oral control at discharge Kiln Transfer Operator consult to provide nutritional counseling. Diabetes education consult. (8) Hyperlipidemia: Continue statin agent. (9) DVT prophylaxis: heparin 5000 TID. daughter mentioned they would like for her to have short-term rehab at local SNF. will involve social work to assist with this. PT, OT lyly. Subjective Patient states she feels much better than when she arrived she still has significant weakness with walking about the room she is not as dyspneic as she has been in the past. There is some consideration whether she would go to a correction facility for subacute rehab. She feels oral Sharifa is also improved. Review of Systems ROS: well nourished well developed. No double vision blurry vision No problems with speech or swallowing she feels her thrush is less painful No palpitations, chest pain or pressure No Wheezing remains dyspneic on exertion No abdominal pain nausea vomiting diarrhea changes in appetite or weight No burning urine urine frequency or changes in color No focal joint pain or muscle pain No skin rashes or oral lesions No unusual bruising or bleeding No focused back pain or numbness or loss of strength No changes in memory or confusion Physical Exam Vital Signs (Past 24 Hours): Last Vital Signs Temp 36.3 C L 02/04/19 07:18 Pulse 62 02/04/19 07:18 Resp 16 02/04/19 07:18 BP 145/73 H 02/04/19 07:18 Pulse Ox 95 02/04/19 07:18 The patient appeared well nourished and normally developed. Vital signs as documented. Head exam is unremarkable. normocephalic, atraumatic oropharynx with no visible thrush plaques seen Neck is without jugular venous distension, thyromegaly, or lymphademopathy Lungs are clear to auscultation but diminished bibasilarly Cardiac exam reveals Rhythm is regular. On systolic murmurs heard first and second heart sounds normal. Abdominal exam reveals normal bowel sounds, no masses, no organomegaly Extremities are mildly edematous and both pedal pulses are present Neurologic exam is A&Ox3, no focal deficits, strength is equal bilateral Psychologically seems neither anxious or depressed Skin is warm Dry without bruises or lesions (1) Asthma exacerbation Asthma persistence: persistent Asthma severity: moderate Qualified Code(s): J45.41 - Moderate persistent asthma with (acute) exacerbation (2) Edema Edema type: unspecified Qualified Code(s): R60.9 - Edema, unspecified (3) Hyperlipidemia Hyperlipidemia type: mixed hyperlipidemia Qualified Code(s): E78.2 - Mixed hyperlipidemia (4) Altered mental status Altered mental status type: disorientation Qualified Code(s): R41.0 - Dis orientation, unspecified (5) HTN (hypertension) Hypertension type: essential hypertension Qualified Code(s): I10 - Essential (primary) hypertension (6) DM 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
[2019-02-04] MEDS: PSYLLIUM 58.6% POWDER PACKET PO SCH (20:20)
[2019-02-04] MEDS: INSULIN GLARGINE SOLOSTAR 100 UNITS/ML 3 ML PEN SC SCH (20:59)
[2019-02-05] MEDS: methylPREDNISolone 40 MG in SYRINGE 0 ML IV SCH ×3 (00:31→21:12)
[2019-02-05] MEDS: HEPARIN SOD 5,000 UNIT/0.5 ML VIAL SQ SCH ×3 (06:03→21:21)
[2019-02-05] MEDS: ALBUT/IPRATROP 3MG/0.5MG NEB 3 ML VIAL NEB SCH ×4 (07:42→19:35)
--- NOTE | 2019-02-05 08:14 | Hospitalist Progress Note ---
Date of Service February 05, 2019 Assessment & Plan (1) Asthma exacerbation: Resolving, taper steroids to p.o. when able since slightly more wheezing in 02/05 adding Brovana nebulized therapy and holding her Advair if she continues not to improve may consider a course of azithromycin May have underlying COPD as she has an extensive smoking history. Cont nebs, mucinex, pulmonary toilet. Will recommend nebulizer with duonebs at discharge patient may be transitioned to assisted facility Also recommend outpatient PFTs. An outpatient pulmonary follow-up (2) Edema: She has had weight gain in the last 2-3 months along with edema of the legs and abdominal swelling. Echo w/ preserved EF but grade 2 diastolic dysfunction. Cannot rule out that diastolic dysfunction played a role in her edema. He also be cor pulmonale if she is got chronic hypoxic lung disease. Continue furosemide diuretic therapy (3) Candidiasis of mouth and esophagus: IMPROVED./Resolved 2nd to chronic advair use. Instructed the patient on good oral hygiene after using inhaled medications especially steroids nystatin 5cc ac/hs. (4) Altered mental status: metabolic encephalopahty, either from hypoxia, infection, or both. Either way it is resolved. (5) Chronic kidney disease, stage III (moderate): Renal dose medications were appropriate (6) HTN (hypertension): continue Lasix, losartan, nifedipine, metoprolol. control adequate at this time. (7) DM w/o complication type II, uncontrolled: UNCONTROLLED due to steroids. Should be improving as we taper steroids Hemoglobin a1c is >7%. Increase lantus to 15 units HS. Adjust novolog correction factor 45 and carb ratio. Consider transition to oral control at discharge perhaps from her sniff Filling Winder consult to provide nutritional counseling. Diabetes education consult. (8) Hyperlipidemia: Continue statin agent. (9) DVT prophylaxis: heparin 5000 TID. daughter mentioned they would like for her to have short-term rehab at local SNF. will involve social work to assist with this. PT, OT lyly. Subjective Patient feels slightly worse with regard to her shortness of breath and yesterday she still looking to go to a assisted facility for subacute rehab her son is at the bedside and updated Review of Systems ROS: well nourished well developed. No double vision blurry vision No problems with speech or swallowing No palpitations, chest pain or pressure Is more dyspneic on exertion No abdominal pain nausea vomiting diarrhea changes in appetite or weight No burning urine urine frequency or changes in color No focal joint pain or muscle pain No skin rashes or oral lesions No unusual bruising or bleeding No focused back pain or numbness or loss of strength No changes in memory or confusion Physical Exam Vital Signs (Past 24 Hours): Last Vital Signs Temp 36.7 C 02/05/19 07:19 Pulse 67 02/05/19 07:42 Resp 16 02/05/19 07:42 BP 138/72 02/05/19 07:19 Pulse Ox 95 02/05/19 07:42 The patient appeared well nourished and normally developed. Vital signs as documented. Head exam is unremarkable. normocephalic, atraumatic Neck is without jugular venous distension, thyromegaly, or lymphademopathy Lungs expiratory wheezes no focal air loss no egophony Cardiac exam reveals Rhythm is regular. First and second heart sounds normal. Abdominal exam reveals normal bowel sounds, no masses, no organomegaly Extremities are nonedematous and both pedal pulses are present Neurologic exam is A&Ox3, no focal deficits, strength is equal bilateral Psychologically seems neither anxious or depressed Skin is warm Dry without bruises or lesions (1) Asthma exacerbation Asthma persistence: persistent Asthma severity: moderate Qualified Code(s): J45.41 - Moderate persistent asthma with (acute) exacerbation (2) Edema Edema type: unspecified Qualified Code(s): R60.9 - Edema, unspecified (3) Hyperlipidemia Hyperlipidemia type: mixed hyperlipidemia Qualified Code(s): E78.2 - Mixed hyperlipidemia (4) Altered mental status Altered mental status type: disorientation Qualified Code(s): R41.0 - Disorientation, unspecified (5) HTN (hypertension) Hypertension type: essential hypertension Qualified Code(s): I10 - Essential (primary) hypertension (6) DM 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
[2019-02-05] MEDS: NIFEdipine EXTENDED REL 30 MG TABCR PO SCH (08:34)
[2019-02-05] MEDS: MULTIVITAMIN TAB PO SCH (08:34)
[2019-02-05] MEDS: guaiFENesin 600 MG TABCR PO SCH ×2 (08:34→21:06)
[2019-02-05] MEDS: LOSARTAN POTASSIUM 50 MG TAB PO SCH (08:34)
[2019-02-05] MEDS: DOCUSATE SODIUM 100 MG CAP PO SCH (08:35)
[2019-02-05] MEDS: METOPROLOL SUCC 50MG EXT REL TAB PO SCH (08:35)
[2019-02-05] MEDS: CALCIUM 600MG + VIT D 400 IU TAB PO SCH (08:35)
[2019-02-05] MEDS: CEROVITE ADV FORMULA TAB PO SCH (08:35)
[2019-02-05] MEDS: SIMVASTATIN 20 MG TAB PO SCH (08:35)
[2019-02-05] MEDS: FUROSEMIDE 20 MG TAB PO SCH (08:36)
[2019-02-05] MEDS: ACETAMINOPHEN 500 MG TAB PO SCH ×3 (08:36→21:18)
[2019-02-05] MEDS: ASPIRIN 81 MG ECTAB PO SCH (08:36)
[2019-02-05] MEDS: FLUOXETINE HCL 20 MG CAP PO SCH ×2 (08:38→21:07)
[2019-02-05] MEDS: FLUTICASONE/SALMETEROL (ADVAIR) 500/50 INH 14 PUFF INH SCH (08:38)
[2019-02-05] MEDS: NYSTATIN SUSP 500,000 U/5 ML UDC PO SCH ×4 (08:38→21:19)
[2019-02-05] MEDS: POLYETHYLENE (MIRALAX) 17 GM PACK PO SCH (08:39)
[2019-02-05] MEDS: INSULIN ASPART 100 UNITS/ML 3 ML PEN SC SCH ×4 (08:44→21:21)
[2019-02-05] MEDS: PSYLLIUM 58.6% POWDER PACKET PO SCH (21:06)
[2019-02-05] MEDS: INSULIN GLARGINE SOLOSTAR 100 UNITS/ML 3 ML PEN SC SCH (21:20)
[2019-02-05] MEDS: ARFORMOTEROL TART 15MCG/2ML VIAL INH SCH (22:17)
[2019-02-06] MEDS: HEPARIN SOD 5,000 UNIT/0.5 ML VIAL SQ SCH (06:00)
[2019-02-06] MEDS: ALBUT/IPRATROP 3MG/0.5MG NEB 3 ML VIAL NEB SCH ×2 (06:55→10:44)
[2019-02-06] MEDS: ARFORMOTEROL TART 15MCG/2ML VIAL INH SCH (06:55)
[2019-02-06] MEDS: SIMVASTATIN 20 MG TAB PO SCH (07:35)
[2019-02-06] MEDS: ACETAMINOPHEN 500 MG TAB PO SCH (07:35)
[2019-02-06] MEDS: METOPROLOL SUCC 50MG EXT REL TAB PO SCH (07:35)
[2019-02-06] MEDS: NYSTATIN SUSP 500,000 U/5 ML UDC PO SCH (07:35)
[2019-02-06] MEDS: NIFEdipine EXTENDED REL 30 MG TABCR PO SCH (07:35)
[2019-02-06] MEDS: POLYETHYLENE (MIRALAX) 17 GM PACK PO SCH (07:35)
[2019-02-06] MEDS: FLUOXETINE HCL 20 MG CAP PO SCH (07:35)
[2019-02-06] MEDS: guaiFENesin 600 MG TABCR PO SCH (07:36)
[2019-02-06] MEDS: MULTIVITAMIN TAB PO SCH (07:36)
[2019-02-06] MEDS: CALCIUM 600MG + VIT D 400 IU TAB PO SCH (07:36)
[2019-02-06] MEDS: FUROSEMIDE 20 MG TAB PO SCH (07:36)
[2019-02-06] MEDS: LOSARTAN POTASSIUM 50 MG TAB PO SCH (07:36)
[2019-02-06] MEDS: ASPIRIN 81 MG ECTAB PO SCH (07:36)
[2019-02-06] MEDS: CEROVITE ADV FORMULA TAB PO SCH (07:36)
[2019-02-06] MEDS: DOCUSATE SODIUM 100 MG CAP PO SCH (07:40)
[2019-02-06 08:03] VITALS: BP 166/85; TEMP 98.1
[2019-02-06] MEDS: INSULIN ASPART 100 UNITS/ML 3 ML PEN SC SCH ×2 (08:46→12:54)
[2019-02-06] MEDS: methylPREDNISolone 40 MG in SYRINGE 0 ML IV SCH (08:46)
[2019-02-06 10:47] VITALS: O2SAT 93
[2019-02-06 12:59] VITALS: PULSE 68
--- NOTE | 2019-02-06 18:53 | Discharge Summary ---
Date of Service February 06, 2019 Admission HPI Per Admitting Provider 83yo female with history of prior tobacco use (1/2 or less per day for 40 years; quit age 63) and "asthma" x 15 years presents with dyspnea and wheezing starting yesterday. Her daughter visited with her at [facility] yesterday and noted the symptoms. This was associated with dry cough. Question of low-grade fever this AM at [facility]. She felt well earlier this week. She went out to dinner last pm with her family and ate well. No chest pain, abd pain, nausea, or vomiting. She took combivent last pm for some of her respiratory symptoms. She had some ankle edema much of the week but the swelling is improved today. By report she was confused this am at [facility] and also was confused upon arrival but her daughters at bedside state it is improved. In the ER she knew it was January but stated 2017. Knew it was Monday and she could name the 2 daughters w/ her. Principal Diagnosis Asthma exacerbation Deconditioning Discharge Exam Constitutional well developed and average body habitus Eyes no conjunctival abnormality and no scleral abnormality Neck normal visual inspection and trachea midline Respiratory normal respiratory effort; no respiratory distress Auscultation: lungs clear to auscultation bilaterally She does become dyspneic with exertion though Cardiovascular RRR, no murmur, no edema Gastrointestinal (Abdomen) normal bowel sounds, soft, nontender, no hepatosplenomegaly Musculoskeletal no cyanosis or clubbing, extremities motor strength 5/5 Discharge Data Allergies Allergy/AdvReac Type Severity Reaction Status Date / Time No Known Allergies Allergy Unverified 12/24/17 11:27 Consultations 02/02/19 09:39 ED Decision to Admit Stat 02/02/19 12:36 Consult Case Management - Discharge Planning Routine Hospital Course (1) Asthma exacerbation: He is to be resolving with taper steroids to p.o. when able since slightly more wheezing in 02/05 adding Brovana nebulized therapy she is doing better with the Brovana we will continue this nebulizer the [facility] with eventual transition to Advair when she improves May have underlying COPD as she has an extensive smoking history. To make this diagnosis without pulmonary function testing Will recommend nebulizer with duonebs at discharge patient may be transitioned to long term facility Also recommend outpatient PFTs. An outpatient pulmonary follow-up (2) Edema: She has had weight gain in the last 2-3 months along with edema of the legs and abdominal swelling. Echo w/ preserved EF but grade 2 diastolic dysfunction. Cannot rule out that diastolic dysfunction played a role in her edema. He also be cor pulmonale if she is got chronic hypoxic lung disease. (3) Candidiasis of mouth and esophagus: IMPROVED./Resolved 2nd to chronic advair use. Instructed the patient on good oral hygiene after using inhaled medications especially steroids Treated for thrush and resolved (4) Altered mental status: metabolic encephalopahty, either from hypoxia, infection, or both. Either way it is resolved. (5) Chronic kidney disease, stage III (moderate): Renal dose medications were appropriate (6) HTN (hypertension): continue Lasix, losartan, nifedipine, metoprolol. control adequate at this time. (7) DM w/o complication type II, uncontrolled: UNCONTROLLED due to steroids. Should be improving as we taper steroids Hemoglobin a1c is >7%. Patient remains on basal bolus insulin and will continue to do so until her steroid taper is improved and she may be considered to transition to oral medication at time of discharge from long term facility Reo Asset Manager consult to provide nutritional counseling. Diabetes education consult. (8) Hyperlipidemia: Continue statin agent. (9) DVT prophylaxis: Continuing PT OT evaluation as well as long term facility Total Time Total Time Spent Total Time Spent (In Minutes): greater than 30 minutes were required to prepare discharge Discharge Plan Discharge Items Patient Disposition: Transfer [facility] Reason For Visit: ASTHMA W/ EXACERBATION Discharge Diagnosis: asthma exacerbation deconditioning Discharge Goals: Decrease discomfort Activity: Resume your previous activity Activity Comment: under supervision of physical therapy Non-emergency contact: Primary Care Provider Call non-emergency contact if: you have any medication questions Follow-up/Referrals: Chito Araujo MD [Primary Care Provider] - Diet: Regular Addtl Provider Instructions: please follow up with pcp at [facility] sliding scale suggestions: BSG ACHS (if diet ordered) or Q6h (if NPO) Goal BSG Range: Low 120__mg/dL - High 160__mg/dL Correction Factor: 30__mg/dL/unit INS:CHO Ratio= 1unit per 10__grams CHO consumed If patient NPO, do not hold correction factor insulin without an order. once steroids are tapered consider attempting oral meds for glucose control Prescriptions: New Brovana 15 mcg/2 mL Solution For Nebulization 15 mcg inhalation BIDR Qty: 120 RF: 0 ipratropium-albuterol 0.5 mg-3 mg(2.5 mg base)/3 mL Solution For Nebulization 3 ml NEB QIDR Qty: 180 RF: 0 Lantus Solostar U-100 Insulin 100 unit/mL (3 mL) Insulin Pen 15 unit SC HS Qty: 15 RF: 0 Novolog Flexpen U-100 Insulin 100 unit/mL (3 mL) Insulin Pen 1 units SC ACHS Qty: 15 RF: 0 prednisone 10 mg tablet 10 mg PO UD Qty: 40 RF: 0 Continued multivitamin Tablet 1 tab PO QAM RF: 0 amoxicillin 500 mg capsule 2,000 mg PO UD RF: 0 Coricidin HBP 10-200 mg Capsule 1 - 2 tab-cap PO Q4H PRN (Reason: Congestion) RF: 0 metoprolol succinate 100 mg tablet extended release 24 hr 100 mg PO QAM RF: 0 aspirin 81 mg Tablet,Delayed Release (Dr/Ec) 81 mg PO QAM RF: 0 acetaminophen [Tylenol Extra Strength] 500 mg Tablet 500 mg PO BID RF: 0 nifedipine 60 mg tablet extended release 24hr 60 mg PO QAM RF: 0 simvastatin 20 mg tablet 20 mg PO QAM RF: 0 fluticasone propion-salmeterol [Advair Diskus] 500-50 mcg/dose blister with device 1 puff inhalation BID RF: 0 docusate sodium [Colace] 100 mg Capsule 100 mg PO QAM RF: 0 hydrochlorothiazide 25 mg tablet 25 mg PO QAM RF: 0 losartan 100 mg tablet 100 mg PO QAM RF: 0 fluoxetine 20 mg capsule 20 mg PO BID RF: 0 calcium carbonate-vitamin D3 [Oyster Shell Calcium-Vit D3] 500 mg(1,250mg) - 200 unit Tablet 1 tab PO QAM RF: 0 omega 7-xhb-wzc-fish oil [Fish Oil] 1,000 mg (120 mg-180 mg) Capsule 1 cap PO BIDM RF: 0 PreserVision AREDS-2 [phone] Capsule 1 tab PO BIDM RF: 0 Metamucil 3.4 gram/5.4 gram Powder 1 tbsp PO PM RF: 0 Discontinued Combivent Respimat 20-100 mcg/actuation Mist 1 puff INHALATION QID PRN (Reason: Shortness Of Breath Or Wheezing) RF: 0 Stand-Alone Forms: [facility] Discharge Orders: Discharge Order (Routine); Ordered 02/06/19 Ordered By: Isma Gregg Skilled Items Patient informed of condition?: Yes DNR: Yes Discharge Level of Care: Skilled Communicable Disease: No Discharge Prognosis: Stable Admission Data Admit Date/Time: 02/02/19 11:07 Attending Provider: Isma Gregg Admit Provider: Corwin Thompson Primary Care Provider: Chito Araujo Other Providers: Corwin Thompson ; Nikki Nj Service: Medical Other Interventions: Discharge Summary Assessment (RN) Last Done: 02/06/19 12:58 DC Date/Time DO NOT enter until pt leaves facility: 02/06/19 13:35
== END 2019-02-06 13:35 | DRG 202 ==
LOC: ED 07:04 → SUATTDRO 11:07 → 2S 11:07 → 4W 02-04 17:45
DX: E11.65 Type 2 diabetes mellitus with hyperglycemia; B37.0 Candidal stomatitis; T38.0X5A Adverse effect of glucocorticoids and synthetic analogues, initial encounter; N18.3 Chronic kidney disease, stage 3 (moderate); Z79.51 Long term (current) use of inhaled steroids; Z79.899 Other long term (current) drug therapy; I12.9 Hypertensive chronic kidney disease with stage 1 through stage 4 chronic kidney disease, or unspecified chronic kidney disease; Z79.82 Long term (current) use of aspirin; E78.5 Hyperlipidemia, unspecified; J45.901 Unspecified asthma with (acute) exacerbation; G93.41 Metabolic encephalopathy; Z87.01 Personal history of pneumonia (recurrent); R60.9 Edema, unspecified; Z87.891 Personal history of nicotine dependence; E11.22 Type 2 diabetes mellitus with diabetic chronic kidney disease; R09.02 Hypoxemia

== ENCOUNTER 2019-07-26 20:00 | Inpatient (IN) ==
[2019-07-26] MEDS ORDERED: ACETAMINOPHEN 500 MG TAB PO STA (20:44)
[2019-07-26] MEDS ORDERED: ALBUT/IPRATROP 3MG/0.5MG NEB 3 ML VIAL NEB STA (20:49)
--- NOTE | 2019-07-26 21:12 | XRay Report ---
XR chest 1V portable HISTORY: Shortness of breath. COMPARISON: Chest 03/11/2019. FINDINGS: No pneumothorax. The heart is normal in size. Left-sided dual-chamber pacemaker. No evidenc e for pulmonary edema. Old, healed left-sided rib fractures. Small linear density at the left lung ba se favor subsegmental atelectasis. Otherwise, the left lung is clear. There is a patchy right basilar airspace opacity. IMPRESSION: A patchy right basilar airspace opacity which may represent atelectasis or pneumonia. Electronically signed by: Steve Jarrett M.D. 07/26/2019 9:10 PM
[2019-07-26 21:16] LABS: Basophils # (auto) 0.03 K/uL (0-0.2); Basophils % (auto) 0.2 %; Eosinophils # (auto) 0.16 K/uL (0-0.5); Hematocrit (blood only) 35.6 % (37-47); Hemoglobin 11.9 g/dL (12.0-16.0); Immature Granulocytes # (auto) 0.04 K/uL (0.00-0.02); Immature Granulocytes % (auto) 0.3 %; Lymphocytes # (auto) 1.34 K/uL (1.2-3.4); Lymphocytes % (auto) 8.7 %; Mean Corpuscular Hemoglobin 31.2 pg (25-34); Mean Corpuscular Hgb Conc 33.4 g/dL (32-36); Mean Corpuscular Volume 93.2 fL (80-100); Monocytes # (auto) 0.98 K/uL (0.11-0.59); Monocytes % (auto) 6.3 %; Neutrophils # (auto) 12.94 K/uL (1.4-6.5); Neutrophils % (auto) 83.5 %; Platelet Count 231 K/uL (130-400); RDW Coefficient of Variation 12.7 % (11.5-14.5); RDW Standard Deviation 43.5 fL (36.4-46.3); Red Blood Count 3.82 M/uL (4.2-5.4); White Blood Count 15.49 K/uL (4.8-10.8)
[2019-07-26] MEDS ORDERED: DOXYCYCLINE HYCLATE 100 MG in DEXTROSE 5% 100 ML IV STA (21:17)
[2019-07-26] MEDS ORDERED: CEFEPIME 2,000 MG/20 ML VIAL IV STA (21:17)
[2019-07-26 21:40] LABS: Alanine Aminotransferase 17 U/L (12-78); Albumin Level 3.1 gm/dl (3.4-5.0); Aspartate Aminotransferase 13 U/L (15-37); BUN Creatinine Ratio 18.4 (10-20); Blood Urea Nitrogen 23 mg/dl (7-18); Calcium 9.6 mg/dl (8.5-10.1); Carbon Dioxide 29 mmol/L (21-32); Chloride 100 mmol/L (98-107); Est GFR (African American) 45.1; Est GFR (Non-African American) 38.9; Glucose 159 mg/dl (70-99); Potassium 3.7 mmol/L (3.5-5.1); Sodium 136 mmol/L (136-145)
[2019-07-26 21:44] LABS: Albumin Globulin Ratio 0.8 (0.9-2); Alkaline Phosphatase 115 U/L (45-117); Bilirubin,Total 0.3 mg/dl (0.2-1); Globulin 3.8 gm/dl (2.5-4.0); Total Protein 6.9 gm/dl (6.4-8.2); Troponin I < 0.015 ng/ml (0-0.045)
[2019-07-26 23:50] LABS: Appearance Urine Cloudy (Clear); Bacteria Urine Automated 2+ (Negative); Bilirubin Urine Negative (Negative); Blood Urine Negative (Negative); Color Urine Yellow; Glucose Urine UA Negative (Negative); Ketones Urine Trace (Negative); Leukocyte Esterase Urine 2+ (Negative); Nitrite Urine Negative (Negative); Protein Urine Negative (Negative); RBC Urine Automated 0-4 /hpf (0-4); Specific Gravity Urine 1.023 (1.000-1.030); Urobilinogen Urine Negative (Negative); WBC Urine Automated >30 /hpf (0-5); pH Urine 5.5 (4.5-7.5)
--- NOTE | 2019-07-27 00:14 | History & Physical Report ---
Date of Service July 27, 2019 Assessment & Plan (1) Pneumonia: 84 y/o F Hx HTN, HLD, DM II, CKD III, asthma or COPD. Resides in a personal shelter and presents with a productive cough or fever. The pt is a poor historian. She denies significant dyspnea. She was last admitted with an asthma exacerbation 02/08 and may have underlying COPD. She requires home 02 HS. Initial labs are notable for leukocytosis. A CXR confirmed a RLL PNM. 1) PNM - underlying COPD or asthma - will be treated for HCAP initially with Cefepime and Doxy. Placed on duonebs, budesonide and an 02 protocol. No current evidence of asthma/COPD exacerbation. 2) DM II - sliding scale 3) HTN - cont Losartan/HCTZ 4) HLD - cont Simvastatin 5) CKD III - renal function is at baseline Full code - Heparin prophylaxis Total time for this admit including review of labs, meds, imaging, records - discussion with pt and ER attending - 38 min Present on Admission?: Yes History of Present Illness Chief Complaint: Cough, fever Primary Care Provider: [facility] 84 y/o F Hx HTN, HLD, DM II, CKD III, asthma or COPD. Resides in a personal shelter and presents with a productive cough or fever. The pt is a poor historian. She denies significant dyspnea. She was last admitted with an asthma exacerbation 02/08 and may have underlying COPD. She requires home 02 HS. Initial labs are notable for leukocytosis. A CXR confirmed a RLL PNM. PMH: 1) HTN 2) HLD 3) DM II 4) Asthma or COPD 5) CKD III Surgical: 1) Bilateral cataract extraction 2) Bilateral hip replacements 3) Total abdominal hysterectomy and bilateral salpingo-oophorectomy Social: X-smoker, > 20 PYH, does not drink, resides in a personal shelter, requires a walker for ambulation. Family: Both parents due to [place] - does not know specifics. Allergies Allergy/AdvReac Type Severity Reaction Status Date / Time No Known Allergies Allergy Verified 07/26/19 23:16 Home Medications Home Medications Medication Instructions Recorded Confirmed Type Metamucil 1 tbsp PO PM 02/02/19 07/26/19 History PreserVision AREDS-2 1 tab PO BIDM 02/02/19 07/26/19 History acetaminophen [Tylenol Extra 500 mg PO BID 02/02/19 07/26/19 History Strength] aspirin 81 mg PO QAM 02/02/19 07/26/19 History calcium carbonate-vitamin D3 1 tab PO QAM 02/02/19 07/26/19 History [Oyster Shell Calcium-Vit D3] docusate sodium [Colace] 100 mg PO QAM 02/02/19 07/26/19 History fluoxetine 20 mg PO BID 02/02/19 07/26/19 History hydrochlorothiazide 25 mg PO QAM 02/02/19 07/26/19 History metoprolol succinate 100 mg PO QAM 02/02/19 07/26/19 History multivitamin 1 tab PO QAM 02/02/19 07/26/19 History nifedipine 60 mg PO QAM 02/02/19 07/26/19 History omega 0-xdq-nxh-fish oil [Fish Oil] 1 cap PO BIDM 02/02/19 07/26/19 History simvastatin 20 mg PO QAM 02/02/19 07/26/19 History insulin glargine [Lantus Solostar 15 unit SC HS #15 ml 02/06/19 07/26/19 Rx U-100 Insulin] losartan 100 mg PO QAM 03/11/19 07/26/19 History potassium chloride ER 10 mEq 10 meq PO QAM tab 06/14/19 07/26/19 History tablet,extended release acetaminophen [Tylenol Extra 500 - 1,000 mg PO DAILY PRN MDD 4 07/26/19 07/26/19 History Strength] GRAMS/24 HOURS amoxicillin 2,000 mg PO ONCE PRN 07/26/19 07/26/19 History clotrimazole-betamethasone 1 applic TOPICAL BID 07/26/19 07/26/19 History fluticasone propion-salmeterol 1 inh INHALATION BID 07/26/19 07/26/19 History [Wixela Inhub] insulin aspart U-100 [Novolog 0 units SC ACHS 07/26/19 07/26/19 History Flexpen U-100 Insulin] ipratropium-albuterol 3 ml NEB QID PRN 07/26/19 07/26/19 History Past Med/Surg History Medical History Asthma Essential (primary) hypertension Frozen shoulder Hyperlipidemia Pacemaker Surgical History H/O bilateral cataract extraction History of left hip replacement History of right hip replacement History of total abdominal hysterectomy and bilateral salpingo-oophorectomy Family History Father Cancer laryngeal (smoker) Mother Ovarian cancer Social History Preferred Language: Sudanese Communication Ability: Effective Broadcast Journalist Required: No Beliefs That Will Affect Care: None marital status: Current Living Situation: Personal Care Facility Current Living Situation Comment: [facility] for over 1 year; prior to that was living in [place] current occupational status: 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) other: 2 daughters, 1 son Feels Safe at Home: Yes Smoking Status: Former smoker Tobacco Type: cigarettes ; Cigarettes Per Day: <1/2 ppd x 40 years ; Second Hand Exposure: No ; Hx Alcohol Use: Yes Alcohol Intake Frequency Comment: rare Hx Substance Use: No Review of Systems Review of Systems: Gen: Fevers reported ENT: Denies congestion, throat pain, hearing loss Eyes: Denies acute visual changes CV: Denies CP, palpitations Pulmonary: Productive cough GI: Denies N/V, diarrhea, constipation Neuro: Denies acute or unilateral weakness, acute gait impairment, headache or acute visual changes Musculoskeletal: Denies joint pain, inflammation - chronic LE edema Endocrine: Denies polydipsia, polyuria Skin: Denies acute rashes or ulcers Physical Exam Physical Exam: General: Pleasant, elderly F, AAO, no distress ENT: No erythema or exudates, no thrush Eyes: MARCIN, EOMI Head and neck: Normocephalic, atraumatic, No JVD, neck is supple. Chest/heart: Nontender, S1,2, RRR, no murmurs, no gallops Lungs: poor air entry at the bases - no clear crackles/wheezing Abdomen: Nontender, nondistended, BS+ Neuro: AAO, speech is clear, no unilateral weakness or loss of sensation, coordination intact Musculoskeletal: No joint inflammation, muscle tenderness, FROM Skin: No acute rashes or ulcers Extremities: + edema Results & Data Vital Signs (Past 12 Hours) Vital Signs Temp Pulse Pulse Pulse Resp Resp BP 07/26/19 23:31 66 16 115/46 L 07/26/19 23:30 63 19 07/26/19 23:26 71 18 07/26/19 23:22 70 22 136/87 07/26/19 23:00 71 20 106/70 07/26/19 22:30 69 21 125/62 07/26/19 22:01 73 17 107/49 L 07/26/19 22:00 72 17 07/26/19 21:55 75 18 129/55 L 07/26/19 21:54 99.3 F 75 18 07/26/19 21:31 75 19 07/26/19 21:30 74 21 07/26/19 21:07 77 20 07/26/19 21:05 70 18 07/26/19 21:01 77 21 138/76 07/26/19 20:05 101.5 F H 68 20 167/78 H BP Pulse Ox Pulse Ox 07/26/19 23:31 97 07/26/19 23:30 97 07/26/19 23:26 87 L 07/26/19 23:22 93 07/26/19 23:00 93 07/26/19 22:30 96 07/26/19 22:01 96 07/26/19 22:00 97 07/26/19 21:55 96 07/26/19 21:54 129/55 L 96 07/26/19 21:31 97 07/26/19 21:30 97 07/26/19 21:07 100 07/26/19 21:05 96 07/26/19 21:01 100 07/26/19 20:05 97 Code Status & VTE Plan VTE Prophylaxis Plan VTE Prophylaxis will be ordered: Yes PG Care Time/CCT Total # of Minutes Spent Total Time Spent with Patient: Total time spent is greater than 50% in coordination of care (as documented) at patient's floor/unit and/or counseling patient: (1) Pneumonia Laterality: right Lung location: lower lobe of lung Pneumonia type: due to unspecified organism Qualified Code(s): J18.1 - Lobar pneumonia, unspecified organism
--- NOTE | 2019-07-27 00:53 | Emergency Department Note ---
Entered by Melissa Villarreal acting as a scribe for Juan Cardoza MD ED Provider Note CHIEF COMPLAINT: Shortness of breath HISTORY OF PRESENT ILLNESS: The patient is a 84 year old female who presents to the Emergency Room with co mplaints of shortness of breath that started today. The patient reports that she has been experiencing a fever and chest tightness that started today. She notes that she has had a cough for the past several days which has worsened. She notes that she has had a cough for the past several days where she has been coughing up yellow and white phlegm. She states that she has back pain that started toda y. The patient reports that she has not taken any recent antibiotics. She mentions that she wears oxygen at night. Per the family, the patient appeared weaker today compared to yesterday. Pt denies LOC, headache, chills, diaphoresis, visual changes, neck pain, nausea, vomiting, abdominal pain, melen a, hematochezia, urinary symptoms, numbness, lymphadenopathy, rash, or other complaints. REVIEW OF SYSTEMS: See HPI for pertinent positives and negatives. A total of ten systems were reviewed and were otherwise negative. PMHx/PSHx: COPD, HTN, Asthma, AMS, and DVT SOCIAL HISTORY: Patient lives at home. PHYSICAL EXAM: GENERAL: Awake, alert, tired-appearing, in no distress HENT: Normocephalic, atraumatic. Oropharynx unremarkable. EYES: PERRL. Normal conjunctiva. Sclera non-icteric. NECK: Inspection normal. Non-tender. Supple. No nuchal rigidity. FROM. No destiny s. RESPIRATORY: Coarse breath sounds. Scattered rhonchi bilaterally. Increased work of breathing. No wheezes. No rales. Normal respiratory effort. CARDIAC: Normal rate. Normal rhythm. No murmurs. No rubs. Extremities warm and well perfused. Pulses equal. No JVD. GI: Soft, non-distended. No tenderness to palpation. No rebound or guarding. No masses. RECTAL: Deferred. MUSCULOSKELETAL: 1+ lower extremity edema. Atraumatic. Chest examination reveals no tenderness. The back is symmetrical on inspection without obvious abnormality. There is no CVA tenderness to palpation. No joint edema. LOWER EXTREMITIES: Calves are equal size bilaterally and non-tender. No edema. No discoloration. NEURO: Normal sensorium. No sensory or motor deficits noted. SKIN: No rash or jaundice noted. EMERGENCY DEPARTMENT COURSE: 2042: Past medical records reviewed. The patient was evaluated in room A10, and a complete history and physical examination were performed. 1922: I reevaluated the patient and updated her on her results, she is feeling b geoff. 2251: I reevaluated the patient and she is getting an ambulatory trial. 2340: I reviewed the patient's case with Dr. Mcnair- [facility] Hospitalist. He will evaluate the patient for further management. MEDICAL DECISION MAKING: A10 Prior records/ancillary studies reviewed. Triage Nursing notes reviewed and agree them. Additional history obtained from the family. The patient's history was concerning for respiratory symptoms. Differential diagnosis: Etiologies such as pneumonia, COPD, reactive airway disease, CHF, cardiac ischemia, pulmonary embolism, pneumothorax, musculoskeletal, infections, gastrointestinal, as well as others were entertained. Physical examination: As above. The patient was requiring supplemental oxygen. She had coarse breath sounds. ER treatment provided: Oral Tylenol IV cefepime IV doxycycline On reassessment the patient felt somewhat better. Diagnostic interpretation by me: The electrocardiogram was concerning for lateral T wave inversions. No ST elevation. The labs revealed a mild leukocytosis on CBC. Chemistry panel revealed elevation of BUN. The patient troponin negative. Urinalysis concerning for infection. Curb 65 score = 2. Imaging studies: Chest x-ray concerning for right lower lobe pneumonia. Consultation: A consultation was placed with the hospitalist. The case was discussed and diagnostics were reviewed. The patient was evaluated in the ER for further treatment. IMPRESSION: Pneumonia, hypoxia, leukocytosis, acute ECG changes, and UTI PLAN: Admitted. The scribe's documentation has been prepared under my direction and personally reviewed by me in its entirety. I confirm that the note above accurately reflects all work, treatment, procedures, and medical decision making performed by me. 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 Beliefs That Will Affect Care: None marital status: Current Living Situation: Personal Care Facility Current Living Situation Comment: [facility] for over 1 year; prior to that was living in [place] current occupational status: 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) other: 2 daughters, 1 son Feels Safe at Home: Yes Smoking Status: Former smoker Tobacco Type: cigarettes ; Cigarettes Per Day: <1/2 ppd x 40 years ; Second Hand Exposure: No ; Hx Alcohol Use: Yes Alcohol Intake Frequency Comment: rare Hx Substance Use: No Results & Data Vital Signs Vital Signs - 24 hr 07/26/19 20:05 07/26/19 21:01 07/26/19 21:05 Temperature 38.6 C H Temperature Source Oral Sepsis Recent Fever Within 48 Hours Yes Sepsis New/Unexplained Change in Mental Status No Sepsis Action Taken by Nursing No Action Required Pulse Rate 68 77 Pulse Rate [Exercises] Pulse Rate [Right Finger] 70 Pulse Rate from SpO2 Sensor 77 Respiratory Rate 20 21 18 Respiratory Rate [Exercises] Respiratory Effort / Characteristics Non-Labored Spontaneous Respiratory Depth Blood Pressure 167/78 H 138/76 Blood Pressure [Right Arm] Blood Pressure Mean 107 96 Blood Pressure Mean [Right Arm] Blood Pressure Position [Right Arm] Pulse Oximetry 97 100 96 Pulse Oximetry [Exercises] Oxygen Delivery Method Nasal Cannula Room Air Nasal Cannula Oxygen Flow Rate 2 2 07/26/19 21:07 07/26/19 21:30 07/26/19 21:31 Temperature Temperature Source Sepsis Recent Fever Within 48 Hours Sepsis New/Unexplained Change in Mental Status Sepsis Action Taken by Nursing Pulse Rate 77 74 75 Pulse Rate [Exercises] Pulse Rate [Right Finger] Pulse Rate from SpO2 Sensor 74 74 75 Respiratory Rate 20 21 19 Respiratory Rate [Exercises] Respiratory Effort / Characteristics Respiratory Depth Blood Pressure Blood Pressure [Right Arm] Blood Pressure Mean Blood Pressure Mean [Right Arm] Blood Pressure Position [Right Arm] Pulse Oximetry 100 97 97 Pulse Oximetry [Exercises] Oxygen Delivery Method Oxygen Flow Rate 07/26/19 21:54 07/26/19 21:55 07/26/19 22:00 Temperature 37.4 C Temperature Source Oral Sepsis Recent Fever Within 48 Hours Sepsis New/Unexplained Change in Mental Status Sepsis Action Taken by Nursing Pulse Rate 75 72 Pulse Rate [Exercises] Pulse Rate [Right Finger] 75 Pulse Rate from SpO2 Sensor 75 73 Respiratory Rate 18 18 17 Respiratory Rate [Exercises] Respiratory Effort / Characteristics Non-Labored Respiratory Depth Normal Blood Pressure 129/55 L Blood Pressure [Right Arm] 129/55 L Blood Pressure Mean 79 Blood Pressure Mean [Right Arm] 79 Blood Pressure Position [Right Arm] Pulse Oximetry 96 96 97 Pulse Oximetry [Exercises] Oxygen Delivery Method Nasal Cannula Oxygen Flow Rate 2 07/26/19 22:01 07/26/19 22:30 07/26/19 23:00 Temperature Temperature Source Sepsis Recent Fever Within 48 Hours Sepsis New/Unexplained Change in Mental Status Sepsis Action Taken by Nursing Pulse Rate 73 69 71 Pulse Rate [Exercises] Pulse Rate [Right Finger] Pulse Rate from SpO2 Sensor 73 69 71 Respiratory Rate 17 21 20 Respiratory Rate [Exercises] Respiratory Effort / Characteristics Respiratory Depth Blood Pressure 107/49 L 125/62 106/70 Blood Pressure [Right Arm] Blood Pressure Mean 68 83 82 Blood Pressure Mean [Right Arm] Blood Pressure Position [Right Arm] Pulse Oximetry 96 96 93 Pulse Oximetry [Exercises] Oxygen Delivery Method Oxygen Flow Rate 07/26/19 23:22 07/26/19 23:26 07/26/19 23:30 Temperature Temperature Source Sepsis Recent Fever Within 48 Hours Sepsis New/Unexplained Change in Mental Status Sepsis Action Taken by Nursing Pulse Rate 70 63 Pulse Rate [Exercises] 71 Pulse Rate [Right Finger] Pulse Rate from SpO2 Sensor 69 63 Respiratory Rate 22 19 Respiratory Rate [Exercises] 18 Respiratory Effort / Characteristics Respiratory Depth Blood Pressure 136/87 Blood Pressure [Right Arm] Blood Pressure Mean 103 Blood Pressure Mean [Right Arm] Blood Pressure Position [Right Arm] Pulse Oximetry 93 97 Pulse Oximetry [Exercises] 87 L Oxygen Delivery Method Room Air Oxygen Flow Rate 07/26/19 23:31 07/27/19 00:10 Temperature 37.0 C Temperature Source Oral Sepsis Recent Fever Within 48 Hours Sepsis New/Unexplained Change in Mental Status Sepsis Action Taken by Nursing Pulse Rate 66 Pulse Rate [Exercises] Pulse Rate [Right Finger] 68 Pulse Rate from SpO2 Sensor 66 Respiratory Rate 16 18 Respiratory Rate [Exercises] Respiratory Effort / Characteristics Respiratory Depth Blood Pressure 115/46 L Blood Pressure [Right Arm] 124/68 Blood Pressure Mean 69 Blood Pressure Mean [Right Arm] 86 Blood Pressure Position [Right Arm] Sitting Pulse Oximetry 97 95 Pulse Oximetry [Exercises] Oxygen Delivery Method Nasal Cannula Oxygen Flow Rate 2 Home Medications Current Medication List: was personally reviewed by me Laboratory Data Attestation: I reviewed the patient's lab results. Result diagrams: 07/26/19 20:51 07/26/19 20:51 Lab Results 07/26/19 07/26/19 07/26/19 Range/Units 20:51 20:51 21:02 WBC 15.49 H (4.8-10.8) K/uL RBC 3.82 L (4.2-5.4) M/uL Hgb 11.9 L (12.0-16.0) g/dL Hct 35.6 L (37-47) % MCV 93.2 (80-100) fL MCH 31.2 (25-34) pg MCHC 33.4 (32-36) g/dL RDW Std Deviation 43.5 (36.4-46.3) fL RDW Coeff of [place] 12.7 (11.5-14.5) % Plt Count 231 (130-400) K/uL MPV 9.0 (7.4-10.4) fL Immature Gran % (Auto) 0.3 % Neut % (Auto) 83.5 % Lymph % (Auto) 8.7 % [place] % (Auto) 6.3 % Eos % (Auto) 1.0 % Baso % (Auto) 0.2 % Immature Gran # (Auto) 0.04 H (0.00-0.02) K/uL Neut # (Auto) 12.94 H (1.4-6.5) K/uL Lymph # (Auto) 1.34 (1.2-3.4) K/uL [place] # (Auto) 0.98 H (0.11-0.59) K/uL Eos # (Auto) 0.16 (0-0.5) K/uL Baso # (Auto) 0.03 (0-0.2) K/uL Sodium 136 (136-145) mmol/L Potassium 3.7 (3.5-5.1) mmol/L Chloride 100 (98-107) mmol/L Carbon Dioxide 29 (21-32) mmol/L Anion Gap 7.0 (3-11) BUN 23 H (7-18) mg/dl Creatinine 1.25 H (0.6-1.2) mg/dl Est Cr Clr Drug Dosing 34.0 ml/min Est GFR ( Amer) 45.1 Est GFR (Non-Af Amer) 38.9 BUN/Creatinine Ratio 18.4 (10-20) Glucose 159 H (70-99) mg/dl POC Lactic Acid Les 1.08 (0.90-1.70) mmol/L Calcium 9.6 (8.5-10.1) mg/dl Total Bilirubin 0.3 (0.2-1) mg/dl AST 13 L (15-37) U/L ALT 17 (12-78) U/L Alkaline Phosphatase 115 (45-117) U/L Troponin I < 0.015 (0-0.045) ng/ml Total Protein 6.9 (6.4-8.2) gm/dl Albumin 3.1 L (3.4-5.0) gm/dl Globulin 3.8 (2.5-4.0) gm/dl Albumin/Globulin Ratio 0.8 L (0.9-2) Urine Color Urine Appearance (Clear) Urine pH (4.5-7.5) Ur Specific [place] (1.000-1.030) Urine Protein (Negative) Urine Glucose (UA) (Negative) Urine Ketones (Negative) Urine Blood (Negative) Urine Nitrite (Negative) Urine Bilirubin (Negative) Urine Urobilinogen (Negative) Ur Leukocyte Esterase (Negative) Urine WBC (Auto) (0-5) /hpf Urine RBC (Auto) (0-4) /hpf U Hyaline Cast (Auto) (0-5) /lpf U Epithel Cells (Auto) (0-5) /lpf Urine Bacteria (Auto) (Negative) Urine Yeast Influenza Type A Ag (Neg) Influenza Type B Ag (Neg) 07/26/19 07/26/19 Range/Units 21:09 23:20 WBC (4.8-10.8) K/uL RBC (4.2-5.4) M/uL Hgb (12.0-16.0) g/dL Hct (37-47) % MCV (80-100) fL MCH (25-34) pg MCHC (32-36) g/dL RDW Std Deviation (36.4-46.3) fL RDW Coeff of [place] (11.5-14.5) % Plt Count (130-400) K/uL MPV (7.4-10.4) fL Immature Gran % (Auto) % Neut % (Auto) % Lymph % (Auto) % [place] % (Auto) % Eos % (Auto) % Baso % (Auto) % Immature Gran # (Auto) (0.00-0.02) K/uL Neut # (Auto) (1.4-6.5) K/uL Lymph # (Auto) (1.2-3.4) K/uL [place] # (Auto) (0.11-0.59) K/uL Eos # (Auto) (0-0.5) K/uL Baso # (Auto) (0-0.2) K/uL Sodium (136-145) mmol/L Potassium (3.5-5.1) mmol/L Chloride (98-107) mmol/L Carbon Dioxide (21-32) mmol/L Anion Gap (3-11) BUN (7-18) mg/dl Creatinine (0.6-1.2) mg/dl Est Cr Clr Drug Dosing ml/min Est GFR ( Amer) Est GFR (Non-Af Amer) BUN/Creatinine Ratio (10-20) Glucose (70-99) mg/dl POC Lactic Acid Les (0.90-1.70) mmol/L Calcium (8.5-10.1) mg/dl Total Bilirubin (0.2-1) mg/dl AST (15-37) U/L ALT (12-78) U/L Alkaline Phosphatase (45-117) U/L Troponin I (0-0.045) ng/ml Total Protein (6.4-8.2) gm/dl Albumin (3.4-5.0) gm/dl Globulin (2.5-4.0) gm/dl Albumin/Globulin Ratio (0.9-2) Urine Color Yellow Urine Appearance Cloudy A (Clear) Urine pH 5.5 (4.5-7.5) Ur Specific [place] 1.023 (1.000-1.030) Urine Protein Negative (Negative) Urine Glucose (UA) Negative (Negative) Urine Ketones Trace H (Negative) Urine Blood Negative (Negative) Urine Nitrite Negative (Negative) Urine Bilirubin Negative (Negative) Urine Urobilinogen Negative (Negative) Ur Leukocyte Esterase 2+ H (Negative) Urine WBC (Auto) >30 H (0-5) /hpf Urine RBC (Auto) 0-4 (0-4) /hpf U Hyaline Cast (Auto) 5-10 H (0-5) /lpf U Epithel Cells (Auto) 10-20 H (0-5) /lpf Urine Bacteria (Auto) 2+ H (Negative) Urine Yeast Not Reportable Influenza Type A Ag Neg for Influ A (Neg) Influenza Type B Ag Neg for Influ B (Neg) Administered Medications Discontinued Medications Acetaminophen (Tylenol) 1,000 mg PO NOW STA Stop: 07/26/19 20:45 Last Admin: 07/26/19 21:07 Dose: 1,000 mg Documented by: [id number] Albuterol (Duoneb) 3 ml NEB NOW STA Stop: 07/26/19 20:50 Last Admin: 07/26/19 21:05 Dose: 3 ml Documented by: [id number] Cefepime HCl (Maxipime) 2,000 mg in 20 mls @ 5 mls/min IV NOW STA; Protocol Stop: 07/26/19 21:20 Last Admin: 07/26/19 21:24 Dose: 5 mls/min Documented by: [id number] Doxycycline Hyclate 100 mg/ (Dextrose) 110 mls @ 50 mls/hr IV NOW STA Stop: 07/26/19 23:28 Last Infusion: 07/27/19 00:10 Dose: 0 mls/hr Documented by: [id number] Admin: 07/26/19 21:50 Dose: 50 mls/hr Documented by: [id number] Imaging Data Radiologist's Impression: Radiology results as stated below per my review and the radiologist's interpretation: XR chest 1V portable HISTORY: Shortness of breath. COMPARISON: Chest 03/11/2019. FINDINGS: No pneumothorax. The heart is normal in size. Left-sided dual-chamber pacemaker. No evidence for pulmonary edema. Old, healed left-sided rib fractures. Small linear density at the left lung base favor subsegmental atelectasis. Otherwise, the left lung is clear. There is a patchy right basilar airspace opacity. IMPRESSION: A patchy right basilar airspace opacity which may represent atelectasis or pneumonia. Electronically signed by: Steve Jarrett M.D. 07/26/2019 9:10 PM ECG Data Attestation: I personally reviewed and interpreted this ECG as follows: Indication: SOB/dyspnea Rate (beats per minute): 76 Rhythm: sinus rhythm Findings: + LBBB (incomplete) and + T-wave inversion (lateral); no ST depression and no ST elevation Comparison ECG Date: from (12/27/17) Change: the following changes noted (New TWI) Blood Pressure Blood Pressure Findings: Low blood pressure Blood Pressure Disposition: Referred to patients primary care provider Discharge Plan Visit Data Chief Complaint: Fever Stated Complaint: FEVER, HIGH BP, SOB ED Provider: Juan Cardoza Discharge Problem: Pneumonia, Hypoxia, Leukocytosis, Acute electrocardiogram changes, UTI (urinary tract infection) Patient Disposition: Being Evaluated by Hospitalist Discharge Instructions Interventions: ED Discharge Assessment Last Done: 07/27/19 00:43 Discharge Problem: Pneumonia Qualifiers: Pneumonia type: due to unspecified organism Laterality: right Lung location: lower lobe of lung Qualified Code(s): J18.1 - Lobar pneumonia, unspecified organism Leukocytosis Qualifiers: Leukocytosis type: unspecified Qualified Code(s): D72.829 - Elevated white blood cell count, unspecified UTI (urinary tract infection) Qualifiers: Urinary tract infection type: site unspecified Hematuria presence: without hematuria Qualified Code(s): N39.0 - Urinary tract infection, site not specified The scribe's documentation has been prepared under my direction and personally reviewed by me in its entirety. I confirm that the note above accurately reflects all work, treatment, procedures, and medical decision making performed by me.
[2019-07-27] MEDS ORDERED: ACETAMINOPHEN 325 MG TAB PO PRN (01:04)
[2019-07-27] MEDS ORDERED: MAGNESIUM HYDROXIDE SUSP 30 ML UDC PO PRN (01:04)
[2019-07-27] MEDS ORDERED: POLYETHYLENE (MIRALAX) 17 GM PACK PO PRN (01:04)
[2019-07-27] MEDS ORDERED: LACTATED RINGER'S 1,000 ML IV SCH (01:04)
[2019-07-27] MEDS ORDERED: ONDANSETRON INJ 2 MG/ML 2 ML VIAL IV PRN (01:04)
[2019-07-27] MEDS ORDERED: ALUMINUM/MAGNESIUM SUSP 30 ML UDC PO PRN (01:04)
[2019-07-27] MEDS ORDERED: CEFEPIME CONSULT ACTIVE PRN (01:23)
[2019-07-27] MEDS: ALBUT/IPRATROP 3MG/0.5MG NEB 3 ML VIAL NEB SCH ×4 (07:21→18:52)
[2019-07-27] MEDS: BUDESONIDE 0.5 MG/2 ML VIAL (PULMICORT) NEB SCH ×2 (07:21→18:52)
[2019-07-27] MEDS ORDERED: INSULIN ASPART 100 UNITS/ML 3 ML PEN SC SCH (07:30)
[2019-07-27] MEDS: NIFEdipine EXTENDED REL 30 MG TABCR PO SCH (07:56)
[2019-07-27] MEDS: FLUOXETINE HCL 20 MG CAP PO SCH ×2 (07:56→20:31)
[2019-07-27] MEDS: hydroCHLOROthiazide 25 MG TAB PO SCH (07:57)
[2019-07-27] MEDS: LOSARTAN POTASSIUM 50 MG TAB PO SCH (07:57)
[2019-07-27] MEDS: DOCUSATE SODIUM 100 MG CAP PO SCH (07:57)
[2019-07-27] MEDS: OMEGA-3 (PURIFIED FISH OIL) 1 GM CAP PO SCH ×2 (07:57→16:23)
[2019-07-27] MEDS: CEROVITE ADV FORMULA TAB PO SCH ×2 (07:58→16:23)
[2019-07-27] MEDS: METOPROLOL SUCC 50MG EXT REL TAB PO SCH (07:58)
[2019-07-27] MEDS: ASPIRIN 81 MG ECTAB PO SCH (07:58)
[2019-07-27] MEDS: POTASSIUM CHLORIDE 10 MEQ TABCR PO SCH (07:59)
[2019-07-27] MEDS: CLOTRIMAZOLE/BETAMETHASONE CR 15 GM TUBE EXT SCH ×2 (07:59→20:32)
[2019-07-27] MEDS ORDERED: PNEUMOCOCCAL POLYSACCHARIDES 25 MCG/0.5 ML VIAL/SYR IM ONE (09:00)
[2019-07-27] MEDS ORDERED: INFLUENZA VIRUS QUAD VACCINE 0.5 ML SYR IM ONE (09:00)
[2019-07-27] MEDS ORDERED: PNEUMOCOCCAL ADMINISTRATION CHARGE ONE (09:00)
[2019-07-27] MEDS ORDERED: INFLUENZA ADMINISTRATION CHARGE ONE (09:00)
[2019-07-27] MEDS: INSULIN ASPART 100 UNITS/ML 3 ML PEN SC SCH ×4 (09:01→20:32)
[2019-07-27] MEDS: CEFEPIME 2,000 MG in SYRINGE 0 ML IV SCH ×2 (09:02→20:35)
[2019-07-27] MEDS: DOXYCYCLINE HYCLATE 100 MG in DEXTROSE 5% 100 ML IV SCH ×2 (09:09→21:46)
[2019-07-27 09:56] LABS: Basophils # (auto) 0.02 K/uL (0-0.2); Basophils % (auto) 0.1 %; Eosinophils % (auto) 0.6 %; Hematocrit (blood only) 31.7 % (37-47); Hemoglobin 10.8 g/dL (12.0-16.0); Immature Granulocytes # (auto) 0.04 K/uL (0.00-0.02); Immature Granulocytes % (auto) 0.3 %; Lymphocytes % (auto) 10.7 %; Mean Corpuscular Hemoglobin 31.8 pg (25-34); Mean Corpuscular Hgb Conc 34.1 g/dL (32-36); Mean Corpuscular Volume 93.2 fL (80-100); Mean Platelet Volume 8.6 fL (7.4-10.4); Monocytes # (auto) 1.07 K/uL (0.11-0.59); Monocytes % (auto) 6.8 %; Neutrophils % (auto) 81.5 %; Platelet Count 201 K/uL (130-400); RDW Coefficient of Variation 12.9 % (11.5-14.5); RDW Standard Deviation 43.6 fL (36.4-46.3); White Blood Count 15.83 K/uL (4.8-10.8)
[2019-07-27 10:20] LABS: BUN Creatinine Ratio 18.6 (10-20); Calcium 9.2 mg/dl (8.5-10.1); Creatinine Clr Calc Pharmacy 35.5 ml/min; Est GFR (African American) 47.9; Est GFR (Non-African American) 41.3; Potassium 3.5 mmol/L (3.5-5.1)
[2019-07-27] MEDS: TIOTROPIUM BROMIDE 5 PUFF/90 MCG INH INH SCH (10:27)
--- NOTE | 2019-07-27 11:02 | Family Medicine Progress Note ---
Date of Service July 27, 2019 Assessment & Plan (1) Pneumonia: Ms. Mcguire is an 84yo female with a PMHx of HTN, HLD, DMII, CKD III, asthma and COPD who presents from a personal custodial with a RLL pneumonia. Pt states she is doing much better today. Uses nightly O2, but not sure how much she uses at night. On exam she was resting comfortably in bed. Currently she is wheezy, with some coarse breath sounds on right. Will continue treatment today as follows: RLL Pneumonia -Chest XR- showed opacity in RLL -currently on 2L NC for hypoxia, will wean off of need during the day -continue Cefepime and Doxycycline for HCAP treatment given long term presentation. Hx of Asthma/COPD -continue scheduled duonebs, budesonide -spiriva added DMII -hold home meds -ISS HTN -continue home meds- losartan/HCTZ combo HLD -continue home simvastatin CKD III -NATALIA improved -Cr below baseline currently. DVT proph - SCDs FEN/GI: DMII, carb consistent CODE STATUS: Full Dispo: Personal custodial once at baseline Supervising Physician Co-Signing Physician Notes I personally examined the patient and verified all mackey points of history and exam, discussed case, and agree with decision making with Dr Mota. Feeling better. Family notes she is looking better. Breathing seems better than before. Vitals noted, in general she is awake and alert pleasant no distress. HEENT normocephalic atraumatic mucous members are moist. Breathing unlabored no accessory muscle use good effort. Lungs are surprisingly clear somewhat diminished but no real rales rhonchi or wheezes (of note I examined her lungs at about 4:00 in the afternoon) Healthcare associated pneumonia with hypoxia present on admissionimproving nicely. Continue cefepime and doxycycline, hopefully home in the next 1 to 2 days. Discussed the possibility of needing oxygen with ambulation at discharge, patient and family expressed understanding, hopefully this will not be the case though. DVT proph - heparin SQ Results & Data Vital Signs (Past 12 Hours) Vital Signs Temp Pulse Pulse Pulse Resp Resp BP 07/27/19 10:44 61 18 07/27/19 07:21 68 18 07/27/19 07:18 37.0 C 73 18 07/27/19 00:52 36.6 C 62 26 H 07/27/19 00:43 62 18 114/53 L 07/27/19 00:10 37.0 C 68 18 07/26/19 23:31 66 16 115/46 L 07/26/19 23:30 63 19 07/26/19 23:26 71 18 07/26/19 23:22 70 22 136/87 BP Pulse Ox Pulse Ox 07/27/19 10:44 97 07/27/19 07:21 95 07/27/19 07:18 159/72 H 96 07/27/19 00:52 126/77 95 07/27/19 00:43 96 07/27/19 00:10 124/68 95 07/26/19 23:31 97 07/26/19 23:30 97 07/26/19 23:26 87 L 07/26/19 23:22 93 PG Care Time/CCT Total # of Minutes Spent Total Time Spent with Patient: Total time spent is greater than 50% in coordination of care (as documented) at patient's floor/unit and/or counseling patient: Resident Activity Tracking Resident Involvement: Resident Care Provided Care Provided: Adult Hospital Medicine (1) Pneumonia Laterality: right Lung location: lower lobe of lung Pneumonia type: due to unspecified organism Qualified Code(s): J18.1 - Lobar pneumonia, unspecified organism
[2019-07-27] MEDS: HEPARIN SOD 5,000 UNIT/0.5 ML VIAL SQ SCH (20:36)
[2019-07-27] MEDS ORDERED: SIMVASTATIN 20 MG TAB PO SCH (21:00)
[2019-07-27] MEDS ORDERED: INSULIN GLARGINE SOLOSTAR 100 UNITS/ML 3 ML PEN SC SCH (21:00)
[2019-07-28 06:26] LABS: Basophils # (auto) 0.03 K/uL (0-0.2); Basophils % (auto) 0.2 %; Eosinophils # (auto) 0.31 K/uL (0-0.5); Eosinophils % (auto) 2.5 %; Hematocrit (blood only) 33.1 % (37-47); Hemoglobin 11.2 g/dL (12.0-16.0); Immature Granulocytes # (auto) 0.04 K/uL (0.00-0.02); Immature Granulocytes % (auto) 0.3 %; Lymphocytes # (auto) 2.03 K/uL (1.2-3.4); Lymphocytes % (auto) 16.5 %; Mean Corpuscular Hemoglobin 31.4 pg (25-34); Mean Corpuscular Hgb Conc 33.8 g/dL (32-36); Mean Corpuscular Volume 92.7 fL (80-100); Mean Platelet Volume 8.7 fL (7.4-10.4); Monocytes # (auto) 1.09 K/uL (0.11-0.59); Monocytes % (auto) 8.9 %; Neutrophils # (auto) 8.81 K/uL (1.4-6.5); Neutrophils % (auto) 71.6 %; Platelet Count 235 K/uL (130-400); RDW Coefficient of Variation 12.9 % (11.5-14.5); RDW Standard Deviation 43.9 fL (36.4-46.3); Red Blood Count 3.57 M/uL (4.2-5.4); White Blood Count 12.31 K/uL (4.8-10.8)
[2019-07-28 06:58] LABS: BUN Creatinine Ratio 17.4 (10-20); Calcium 9.6 mg/dl (8.5-10.1); Creatinine Clr Calc Pharmacy 37.4 ml/min; Potassium 3.7 mmol/L (3.5-5.1)
[2019-07-28] MEDS: BUDESONIDE 0.5 MG/2 ML VIAL (PULMICORT) NEB SCH (06:58)
[2019-07-28] MEDS: ALBUT/IPRATROP 3MG/0.5MG NEB 3 ML VIAL NEB SCH ×2 (06:58→11:03)
[2019-07-28] MEDS: NIFEdipine EXTENDED REL 30 MG TABCR PO SCH (08:01)
[2019-07-28] MEDS: POTASSIUM CHLORIDE 10 MEQ TABCR PO SCH (08:01)
[2019-07-28] MEDS: ASPIRIN 81 MG ECTAB PO SCH (08:01)
[2019-07-28] MEDS: hydroCHLOROthiazide 25 MG TAB PO SCH (08:01)
[2019-07-28] MEDS: CEROVITE ADV FORMULA TAB PO SCH (08:02)
[2019-07-28] MEDS: DOCUSATE SODIUM 100 MG CAP PO SCH (08:02)
[2019-07-28] MEDS: LOSARTAN POTASSIUM 50 MG TAB PO SCH (08:02)
[2019-07-28] MEDS: METOPROLOL SUCC 50MG EXT REL TAB PO SCH (08:02)
[2019-07-28] MEDS: OMEGA-3 (PURIFIED FISH OIL) 1 GM CAP PO SCH (08:02)
[2019-07-28] MEDS: TIOTROPIUM BROMIDE 5 PUFF/90 MCG INH INH SCH (08:03)
[2019-07-28] MEDS: CLOTRIMAZOLE/BETAMETHASONE CR 15 GM TUBE EXT SCH (08:04)
[2019-07-28] MEDS: HEPARIN SOD 5,000 UNIT/0.5 ML VIAL SQ SCH (08:04)
[2019-07-28] MEDS: FLUOXETINE HCL 20 MG CAP PO SCH (08:40)
[2019-07-28] MEDS: INSULIN ASPART 100 UNITS/ML 3 ML PEN SC SCH ×2 (08:42→12:33)
[2019-07-28] MEDS: CEFEPIME 2,000 MG in SYRINGE 0 ML IV SCH (08:49)
[2019-07-28] MEDS: DOXYCYCLINE HYCLATE 100 MG in DEXTROSE 5% 100 ML IV SCH (09:30)
--- NOTE | 2019-07-28 10:25 | Discharge Summary ---
Date of Service July 28, 2019 Admission HPI Per Admitting Provider 84 y/o F Hx HTN, HLD, DM II, CKD III, asthma or COPD. Resides in a personal correction and presents with a productive cough or fever. The pt is a poor historian. She denies significant dyspnea. She was last admitted with an asthma exacerbation 02/08 and may have underlying COPD. She requires home 02 HS. Initial labs are notable for leukocytosis. A CXR confirmed a RLL PNM. PMH: 1) HTN 2) HLD 3) DM II 4) Asthma or COPD 5) CKD III Surgical: 1) Bilateral cataract extraction 2) Bilateral hip replacements 3) Total abdominal hysterectomy and bilateral salpingo-oophorectomy Social: X-smoker, > 20 PYH, does not drink, resides in a personal correction, requires a walker for ambulation. Family: Both parents due to [place] - does not know specifics. Admission Exam Per Admitting Provider General: Pleasant, elderly F, AAO, no distress ENT: No erythema or exudates, no thrush Eyes: MARCIN, EOMI Head and neck: Normocephalic, atraumatic, No JVD, neck is supple. Chest/heart: Nontender, S1,2, RRR, no murmurs, no gallops Lungs: poor air entry at the bases - no clear crackles/wheezing Abdomen: Nontender, nondistended, BS+ Neuro: AAO, speech is clear, no unilateral weakness or loss of sensation, coordination intact Musculoskeletal: No joint inflammation, muscle tenderness, FROM Skin: No acute rashes or ulcers Extremities: + edema Principal Diagnosis Pneumonia Discharge Exam General: Alert, oriented. No acute distress HEENT: NC/AT, PERRLA, EOMI, oropharynx moist. Chest: Nontender to palpation. CV: RRR, Normal s1, s2. No murmurs appreciated Resp: Breath sounds clear bilaterally, no increased effort of breathing. No crackles/rhonchi/rales. Abdomen: Soft, nontender, nondistended. No guarding. No organomegaly appreciated. Extremities: + edema in lower extremities bilaterally. Discharge Data Allergies Allergy/AdvReac Type Severity Reaction Status Date / Time No Known Allergies Allergy Verified 07/26/19 23:16 Consultations 07/26/19 23:38 ED Decision to Admit Stat Hospital Course (1) Pneumonia: Ms. Mcguire is an 84yo female with a PMHx of HTN, HLD, DMII, CKD III, asthma and COPD who presents from a personal correction with a RLL pneumonia. Admitted on Jul 27 2019 and discharged on Jul 28 2019. RLL Pneumonia -Chest XR- showed opacity in RLL. Pt was febrile with increased WBC on admission -currently on 2L NC for hypoxia, will wean off of need during the day as pt states she only uses O2 at night at home -continued Cefepime and Doxycycline for HCAP treatment given half-way presentation. -discharged with 4 more days of PO cefdinir and doxycycline given rapid impro vement in symptoms. -close PCP followup strongly recommended. Hx of Asthma/COPD -PFTs in chart confirm diagnosis of COPD -continued scheduled duonebs, budesonide, spiriva -advised to continue home meds on discharge-Wixela Inhub and Combivent/Duoneb inhalers. -close PCP followup strongly encouraged. DMII -hemoglobin a1c of 7.0 on 03/20/2019 -held home meds -ISS while hospitalized. -home meds restarted on discharge. HTN -continue home meds- losartan/HCTZ combo HLD -continue home simvastatin CKD III -NATALIA on admission improved -normal level of 1.13 on discharge Total Time Total Time Spent Total Time Spent (In Minutes): <30 Discharge Plan Discharge Items Patient Disposition: Personal Detention Reason For Visit: PNM Discharge Diagnosis: Pneumonia Activity: Per Instructions section Non-emergency contact: Primary Care Provider Call non-emergency contact if: your symptoms worsen and you have a fever [facility] - Diet: Regular Addtl Attending Provider Instructions: You were treated for a pneumonia with antibiotics while hospitalized and also received treatments to help with your breathing. -Please continue taking the antibiotics after discharge. -Take the doxycycline 100mg twice a day for the next 4 days starting today after discharge. -Take the cefdinir 300mg twice daily for the next 4 days starting today after discharge. -If the pharmacy gives Levaquin (as a previous prescription was sent), please DO NOT pick it up. Your treatment consists of only Doxycycline and cefdinir as abo ve. -Please continue to use your home inhalers, your Wixela Inhub and Combivent/Duonebs to help with your breathing. -Please also continue to use your home oxygen as needed as well. -Should your symptoms return or worsen, or you suddenly develop fevers, chills, or night sweats with difficulty breathing once more, please seek emergent medical care once more. Pending Studies at Discharge: No Stand-Alone Forms: My [facility] Skilled Items Patient informed of condition?: Yes DNR: No Discharge Level of Care: Other Communicable Disease: Yes Discharge Prognosis: Improving Lines: None Urinary Catheter: No Medications and DC Order Prescriptions: New doxycycline hyclate 100 mg tablet 100 mg PO BID 4 Days Qty: 8 RF: 0 cefdinir 300 mg capsule 300 mg PO BID 4 Days Qty: 8 RF: 0 Continued potassium chloride 10 mEq tablet extended release 10 meq PO QAM RF: 0 multivitamin Tablet 1 tab PO QAM RF: 0 metoprolol succinate 100 mg tablet extended release 24 hr 100 mg PO QAM RF: 0 aspirin 81 mg Tablet,Delayed Release (Dr/Ec) 81 mg PO QAM RF: 0 acetaminophen [Tylenol Extra Strength] 500 mg Tablet 500 mg PO BID RF: 0 nifedipine 60 mg tablet extended release 24hr 60 mg PO QAM RF: 0 simvastatin 20 mg tablet 20 mg PO QAM RF: 0 docusate sodium [Colace] 100 mg Capsule 100 mg PO QAM RF: 0 hydrochlorothiazide 25 mg tablet 25 mg PO QAM RF: 0 fluoxetine 20 mg capsule 20 mg PO BID RF: 0 calcium carbonate-vitamin D3 [Oyster Shell Calcium-Vit D3] 500 mg(1,250mg) - 200 unit Tablet 1 tab PO QAM RF: 0 omega 3-bvw-pio-fish oil [Fish Oil] 1,000 mg (120 mg-180 mg) Capsule 1 cap PO BIDM RF: 0 PreserVision AREDS-2 [id number] vs-eupd-[id number]-mg Capsule 1 tab PO BIDM RF: 0 Metamucil 3.4 gram/5.4 gram Powder 1 tbsp PO PM RF: 0 Lantus Solostar U-100 Insulin 100 unit/mL (3 mL) Insulin Pen 15 unit SC HS Qty: 15 RF: 0 losartan 100 mg tablet 100 mg PO QAM RF: 0 amoxicillin 500 mg Capsule 2,000 mg PO ONCE PRN (Reason: 1 HOUR PRIOR TO DENTAL APPT.) RF: 0 acetaminophen [Tylenol Extra Strength] 500 mg Tablet 500 - 1,000 mg PO DAILY MDD 4 GRAMS/24 HOURS PRN (Reason: Pain) RF: 0 clotrimazole-betamethasone 1-0.05 % cream 1 applic topical BID RF: 0 fluticasone propion-salmeterol [Wixela Inhub] 500-50 mcg/dose Blister With Device 1 inh INHALATION BID RF: 0 ipratropium-albuterol 0.5 mg-3 mg(2.5 mg base)/3 mL solution for nebulization 3 ml NEB QID PRN (Reason: Shortness Of Breath Or Wheezing) RF: 0 Novolog Flexpen U-100 Insulin 100 unit/mL (3 mL) insulin pen SC ACHS RF: 0 Discharge Orders: Discharge Order (Routine); Ordered 07/28/19 Ordered By: Christine Mota Admission Data Admit Date/Time: 07/27/19 00:12 Attending Provider: Von Clay Admit Provider: Chuck Mcnair Primary Care Provider: [facility] Other Providers: Chuck Mcnair Other Interventions: Discharge Summary Assessment (RN) Last Done: 07/28/19 11:53 DC Date/Time DO NOT enter until pt leaves facility: 07/28/19 12:42 Supervising Physician Co-Signing Physician Notes I personally examined the patient and verified all mackey points of history and exam, discussed case, and agree with decision making with Dr Mota. Feeling better. wants to go home. Vitals noted, in general she is awake and alert pleasant no distress. HEENT normocephalic atraumatic mucous members are moist. Breathing unlabored no accessory muscle use good effort. no focal neuro deficits. Healthcare associated pneumonia with hypoxia present on admissionimproving nicely. safe for discharge - will utilize cefdinir and doxy. outpt f/u. DVT proph - heparin SQ Resident Activity Tracking Resident Involvement: Resident Care Provided Care Provided: Adult Hospital Medicine
== END 2019-07-28 12:42 | disposition home or self-care (01) | DRG 194 ==
LOC: ED 20:00 → 4W 07-27 00:12 → SUATTDRO 07-27 00:12 → 4W 07-27 00:43

== ENCOUNTER 2020-05-02 08:36 | Inpatient (IN) ==
[2020-05-02] MEDS ORDERED: PIPERACILLIN/TAZOBACTAM 4.5 GM/120 ML BAG IV ONE (08:51)
[2020-05-02] MEDS ORDERED: PIPERACILL/TAZOBAC CONSULT ACTIVE PRN ×2 (08:51→11:02)
[2020-05-02] MEDS ORDERED: SODIUM CHLORIDE 0.9% 500 ML IV ONE (08:52)
--- NOTE | 2020-05-02 08:57 | Emergency Department Note ---
History of Present Illness General Chief complaint: Illness Stated complaint: AMS/UTI Time Seen by Provider: 05/02/20 08:44 Source: patient and EMS Mode of arrival: EMS Limitations: altered mental status History of Present Illness This patient is brought in by EMS after she had a fever and confusion. She was seen by her doctor yesterday and started on Cipro for urinary tract infection. She became febrile and confused today. Her temperature was up to 102.5. She had general pain and dizziness as well. They did give her albuterol neb as she was a little short of breath at one point but denies any cough. There has been no known COVID from her facility. She answers questions vaguely and she does seem to be confused. Home Medications Home Medications Medication Instructions Recorded Confirmed Type Metamucil 1 tbsp PO PM 02/02/19 05/02/20 History PreserVision AREDS-2 1 tab PO BIDM 02/02/19 05/02/20 History aspirin 81 mg PO QAM 02/02/19 05/02/20 History calcium carbonate-vitamin D3 1 tab PO QAM 02/02/19 05/02/20 History [Oyster Shell Calcium-Vit D3] docusate sodium [Colace] 100 mg PO QAM 02/02/19 05/02/20 History fluoxetine 20 mg PO BID 02/02/19 05/02/20 History hydrochlorothiazide 25 mg PO QAM 02/02/19 05/02/20 History metoprolol succinate 100 mg PO QAM 02/02/19 05/02/20 History multivitamin 1 tab PO QAM 02/02/19 05/02/20 History nifedipine 60 mg PO QAM 02/02/19 05/02/20 History omega 7-nfh-tlc-fish oil [Fish Oil] 1 cap PO BIDM 02/02/19 05/02/20 History simvastatin 20 mg PO QAM 02/02/19 05/02/20 History Lantus Solostar U-100 Insulin 15 unit SC HS #15 ml 02/06/19 05/02/20 Rx losartan 100 mg PO QAM 03/11/19 05/02/20 History potassium chloride 10 mEq 10 meq PO QAM tab 06/14/19 05/02/20 History tablet,extended release acetaminophen [Tylenol Extra 500 - 1,000 mg PO DAILY PRN MDD 4 07/26/19 05/02/20 History Strength] GRAMS/24 HOURS amoxicillin 2,000 mg PO ONCE PRN 07/26/19 05/02/20 History fluticasone propion-salmeterol 1 inh INHALATION BID 07/26/19 05/02/20 History [Wixela Inhub] insulin aspart U-100 [Novolog 0 units SC ACHS 07/26/19 05/02/20 History Flexpen U-100 Insulin] ipratropium-albuterol 3 ml NEB QID PRN 07/26/19 05/02/20 History ciprofloxacin HCl 500 mg PO BID 05/02/20 05/02/20 History nystatin-triamcinolone 1 applic TOPICAL UD 05/02/20 05/02/20 History Allergies Allergy/AdvReac Type Severity Reaction Status Date / Time No Known Drug Allergies Allergy Verified 09/30/19 15:24 Past Med/Surg History Medical History Asthma Essential (primary) hypertension Frozen shoulder Hyperlipidemia Pacemaker Surgical History H/O bilateral cataract extraction History of left hip replacement History of right hip replacement History of total abdominal hysterectomy and bilateral salpingo-oophorectomy Family History Father Cancer laryngeal (smoker) Mother Ovarian cancer Social History Preferred Language: [place] Communication Ability: Effective Senior Buyer Planner Required: No Beliefs That Will Affect Care: None marital status: Current Living Situation: Personal Care Facility Current Living Situation Comment: [facility] current occupational status: retired 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) other: 2 daughters, 1 son Feels Safe at Home: Yes Smoking Status: Never smoker Tobacco Type: cigarettes ; Cigarettes Per Day: <1/2 ppd x 40 years ; Second Hand Exposure: No ; Hx Alcohol Use: No Hx Substance Use: No Review of Systems Unobtainable due to cognitive status (A reliable review of systems unable to be obtained due to confusion) Physical Exam Vital Signs Vital Signs - 24 hr 05/02/20 08:40 05/02/20 08:50 05/02/20 08:57 Temperature 37.6 C H Temperature Source Oral Pulse Rate 85 85 Pulse Rate [Apical] Pulse Rate from SpO2 Sensor 85 Respiratory Rate 20 30 H Blood Pressure 142/81 H 142/81 H Blood Pressure [Right Arm] Blood Pressure Mean 101 119 Blood Pressure Mean [Right Arm] Pulse Oximetry 92 94 92 Oxygen Delivery Method Room Air Nasal Cannula Room Air Oxygen Flow Rate 2 Sepsis Recent Fever Within 48 Hours No Sepsis New/Unexplained Change in Mental Status No Sepsis Action Taken by Nursing No Action Required 05/02/20 09:00 05/02/20 09:30 05/02/20 09:59 Temperature Temperature Source Pulse Rate 88 84 Pulse Rate [Apical] 76 Pulse Rate from SpO2 Sensor 87 85 Respiratory Rate 17 15 20 Blood Pressure 123/91 118/61 Blood Pressure [Right Arm] 122/47 L Blood Pressure Mean 104 74 Blood Pressure Mean [Right Arm] 72 Pulse Oximetry 90 98 95 Oxygen Delivery Method Room Air Nasal Cannula Nasal Cannula Oxygen Flow Rate 2 2 Sepsis Recent Fever Within 48 Hours Sepsis New/Unexplained Change in Mental Status Sepsis Action Taken by Nursing 05/02/20 10:01 05/02/20 10:30 Temperature Temperature Source Pulse Rate 77 75 Pulse Rate [Apical] Pulse Rate from SpO2 Sensor 76 73 Respiratory Rate 21 28 H Blood Pressure 122/47 L 101/47 L Blood Pressure [Right Arm] Blood Pressure Mean 62 53 Blood Pressure Mean [Right Arm] Pulse Oximetry 95 96 Oxygen Delivery Method Nasal Cannula Nasal Cannula Oxygen Flow Rate 2 2 Sepsis Recent Fever Within 48 Hours Sepsis New/Unexplained Change in Mental Status Sepsis Action Taken by Nursing General: Well developed well nourished older female who appears in no acute distress, breathing comfortably on room air. Normal speech, nonslurred. She is alert to person and place but answers questions very vaguely and does have some mild confusion HEENT: Normal cephalic atraumatic. Pupils are equal round and reactive to light. Extraocular movements are intact. Oropharynx is pink with moist mucous membranes. No swelling of the mouth lips or tongue. Neck: Supple with a midline trachea. No meningeal signs or stiffness, no JVD or bruits. No Stridor. Chest: Clear to auscultation bilaterally. No wheezes or rhonchi. No increased work of breathing. Heart: Regular rate and rhythm without murmurs or gallops. Abdomen: Soft nontender, nondistended without rebound guarding or rigidity. Extremities: No cyanosis clubbing or edema. No calf tenderness or assymetry Spine/Back. Non tender to palpation. No CVA tenderness Skin: Good turgor without rashes. Neurologic exam: Cranial nerves two through 12 are intact. Motor and sensation are intact and symmetrical throughout. Course Administered Medications Discontinued Medications Piperacillin Sod/Tazobactam Sod (Zosyn) 4.5 gm in 120 mls @ 240 mls/hr IV NOW ONE Stop: 05/02/20 09:20 Last Infusion: 05/02/20 12:08 Dose: 0 mls/hr Documented by: [id number] Admin: 05/02/20 11:35 Dose: 240 mls/hr Documented by: [id number] Sodium Chloride (Nss) 500 mls @ 999 mls/hr IV .Q31M ONE Stop: 05/02/20 09:22 Last Infusion: 05/02/20 12:08 Dose: 0 mls/hr Documented by: [id number] Admin: 05/02/20 11:38 Dose: 999 mls/hr Documented by: [id number] Magnesium Sulfate/Dextrose (Magnesium Sulfate / D5w) 1 gm in 100 mls @ 100 mls/hr IV NOW STA Stop: 05/02/20 11:12 Last Infusion: 05/02/20 12:51 Dose: 0 mls/hr Documented by: [id number] Admin: 05/02/20 11:38 Dose: 100 mls/hr Documented by: [id number] Piperacillin Sod/Tazobactam Sod (Zosyn) Confirm Administered Dose 4.5 gm .ROUTE .STK-MED ONE Stop: 05/02/20 11:29 Last Admin: 05/02/20 12:11 Dose: Not Given Documented by: [id number] Critical Care Time Critical Care Time: Yes Total Critical Care Time: 35 I have personally spent greater than 35 minutes of critical care time in the direct management of this patient. This includes bedside care, interpretation of diagnostic studies, and testing, discussion with consultants, patient, and family members, and other required patient management activities. This 35 minutes is in excess of all separately billable procedures. Medical Decision Making Differential Diagnosis Sepsis, UTI, pneumonia, COVID, intracranial process, stroke, hypoglycemia, electrolyte or metabolic abnormality, cardiac disease Medical Records Attestation: I reviewed the patient's medical records. Home Medications Current Medication List: was personally reviewed by me Laboratory Data Attestation: I reviewed the patient's lab results. Result diagrams: 05/02/20 09:13 05/02/20 09:13 Lab Results 05/02/20 05/02/20 05/02/20 Range/Units 09:13 09:13 09:13 WBC 12.26 H (4.8-10.8) K/uL RBC 3.59 L (4.2-5.4) M/uL Hgb 11.1 L (12.0-16.0) g/dL Hct 34.1 L (37-47) % MCV 95.0 (80-100) fL MCH 30.9 (25-34) pg MCHC 32.6 (32-36) g/dL RDW Std Deviation 45.1 (36.4-46.3) fL RDW Coeff of [place] 12.9 (11.5-14.5) % Plt Count 177 (130-400) K/uL MPV 9.2 (7.4-10.4) fL Immature Gran % (Auto) 0.2 % Neut % (Auto) 87.5 % Lymph % (Auto) 6.3 % [place] % (Auto) 5.7 % Eos % (Auto) 0.1 % Baso % (Auto) 0.2 % Neut # (Auto) 10.73 H (1.4-6.5) K/uL Lymph # (Auto) 0.77 L (1.2-3.4) K/uL [place] # (Auto) 0.70 H (0.11-0.59) K/uL Eos # (Auto) 0.01 (0-0.5) K/uL Baso # (Auto) 0.02 (0-0.2) K/uL Immature Gran # (Auto) 0.03 H (0.00-0.02) K/uL PT 11.3 (9.0-12.0) Seconds INR 1.1 (0.9-1.1) APTT 24.0 (21.0-31.0) Seconds PTT Ratio 0.9 Sodium 136 (136-145) mmol/L Potassium 3.6 (3.5-5.1) mmol/L Chloride 101 (98-107) mmol/L Carbon Dioxide 26 (21-32) mmol/L Anion Gap 8.0 (3-11) BUN 30 H (7-18) mg/dl Creatinine 1.46 H (0.6-1.2) mg/dl Est Cr Clr Drug Dosing 29.4 ml/min Est GFR ( Amer) 37.4 Est GFR (Non-Af Amer) 32.3 BUN/Creatinine Ratio 20.8 H (10-20) Glucose 120 H (70-99) mg/dl Lactate (0.4-2.0) mmol/L Calcium 9.2 (8.5-10.1) mg/dl Magnesium 1.7 L (1.8-2.4) mg/dl Total Bilirubin 1.0 (0.2-1) mg/dl AST 30 (15-37) U/L ALT 19 (12-78) U/L Alkaline Phosphatase 98 (45-117) U/L Troponin I < 0.015 (0-0.045) ng/ml Total Protein 7.1 (6.4-8.2) gm/dl Albumin 3.0 L (3.4-5.0) gm/dl Globulin 4.1 H (2.5-4.0) gm/dl Albumin/Globulin Ratio 0.7 L (0.9-2) Procalcitonin (0-0.5) ng/ml Urine Color Urine Appearance (Clear) Urine pH (4.5-7.5) Ur Specific [place] (1.000-1.030) Urine Protein (Negative) Urine Glucose (UA) (Negative) Urine Ketones (Negative) Urine Blood (Negative) Urine Nitrite (Negative) Urine Bilirubin (Negative) Urine Urobilinogen (Negative) Ur Leukocyte Esterase (Negative) Urine WBC (Auto) (0-5) /hpf Urine RBC (Auto) (0-4) /hpf U Hyaline Cast (Auto) (0-5) /lpf U Epithel Cells (Auto) (0-5) /lpf Urine Bacteria (Auto) (Negative) 05/02/20 05/02/20 05/02/20 Range/Units 09:13 09:13 09:20 WBC (4.8-10.8) K/uL RBC (4.2-5.4) M/uL Hgb (12.0-16.0) g/dL Hct (37-47) % MCV (80-100) fL MCH (25-34) pg MCHC (32-36) g/dL RDW Std Deviation (36.4-46.3) fL RDW Coeff of [place] (11.5-14.5) % Plt Count (130-400) K/uL MPV (7.4-10.4) fL Immature Gran % (Auto) % Neut % (Auto) % Lymph % (Auto) % [place] % (Auto) % Eos % (Auto) % Baso % (Auto) % Neut # (Auto) (1.4-6.5) K/uL Lymph # (Auto) (1.2-3.4) K/uL [place] # (Auto) (0.11-0.59) K/uL Eos # (Auto) (0-0.5) K/uL Baso # (Auto) (0-0.2) K/uL Immature Gran # (Auto) (0.00-0.02) K/uL PT (9.0-12.0) Seconds INR (0.9-1.1) APTT (21.0-31.0) Seconds PTT Ratio Sodium (136-145) mmol/L Potassium (3.5-5.1) mmol/L Chloride (98-107) mmol/L Carbon Dioxide (21-32) mmol/L Anion Gap (3-11) BUN (7-18) mg/dl Creatinine (0.6-1.2) mg/dl Est Cr Clr Drug Dosing ml/min Est GFR ( Amer) Est GFR (Non-Af Amer) BUN/Creatinine Ratio (10-20) Glucose (70-99) mg/dl Lactate 1.4 (0.4-2.0) mmol/L Calcium (8.5-10.1) mg/dl Magnesium (1.8-2.4) mg/dl Total Bilirubin (0.2-1) mg/dl AST (15-37) U/L ALT (12-78) U/L Alkaline Phosphatase (45-117) U/L Troponin I (0-0.045) ng/ml Total Protein (6.4-8.2) gm/dl Albumin (3.4-5.0) gm/dl Globulin (2.5-4.0) gm/dl Albumin/Globulin Ratio (0.9-2) Procalcitonin 0.36 (0-0.5) ng/ml Urine Color Yellow Urine Appearance Turbid A (Clear) Urine pH 6.0 (4.5-7.5) Ur Specific [place] 1.015 (1.000-1.030) Urine Protein 1+ H (Negative) Urine Glucose (UA) Negative (Negative) Urine Ketones Negative (Negative) Urine Blood 2+ H (Negative) Urine Nitrite Positive A (Negative) Urine Bilirubin Negative (Negative) Urine Urobilinogen Negative (Negative) Ur Leukocyte Esterase 3+ H (Negative) Urine WBC (Auto) >30 H (0-5) /hpf Urine RBC (Auto) 5-10 H (0-4) /hpf U Hyaline Cast (Auto) 0 (0-5) /lpf U Epithel Cells (Auto) 0-5 (0-5) /lpf Urine Bacteria (Auto) 4+ H (Negative) Imaging Data Attestation: I personally reviewed and interpreted this imaging study as follows: Radiologist's Impression: CT SCAN OF THE BRAIN WITHOUT IV CONTRAST CLINICAL HISTORY: Change in mental status. COMPARISON STUDY: CT of the brain dated 12/09/2019. TECHNIQUE: Unenhanced axial CT scan of the brain is performed from the vertex to the skull base. A dose lowering technique was utilized adhering to the principles of ALARA. CT DOSE: 537.48 mGy.cm FINDINGS: Brain parenchyma: There are age-related involutional changes noting moderate to advanced confluent subcortical and periventricular microangiopathic change. There is no hemorrhage, mass effect, or evidence of acute territorial ischemia by CT criteria. [place]-white matter differentiation is preserved. No extra-axial fluid collection is seen. Ventricles, sulci, cisterns: Prominent secondary to involutional change. Intracranial vasculature: There is atherosclerotic calcification of the cavernous carotid arteries. Calvarium: Unremarkable. Sinuses and mastoids: The visualized paranasal sinuses are clear. The mastoid air cells are well pneumatized. Orbits: The bony orbits are grossly intact. There are bilateral ocular lens implants. IMPRESSION: There is no hemorrhage, mass effect, or evidence of acute territorial ischemia by CT criteria. SINGLE VIEW CHEST CLINICAL HISTORY: Sepsis. FINDINGS: An AP, portable, upright chest radiograph is compared to study dated 07/26/2019. The examination is degraded by portable technique and patient rotation. A 2-lead cardiac pacemaker is unchanged in position and partially obscures the left mid chest. The heart is enlarged and there is atherosclerotic calcification of the thoracic aorta. The pulmonary vasculature is noncongested. Chronic interstitial thickening is similar to previous. There is mild elevation of the right hemidiaphragm and bibasilar atelectasis. No airspace consolidation or large pleural effusion is identified. A large calcified granuloma is again seen in the right lung base. No pneumothorax is seen. The skeletal structures are osteopenic. The bony thorax is grossly intact. Arthritic change is noted in the shoulders and thoracic spine. IMPRESSION: 1. Cardiomegaly and cardiac pacemaker. There is no radiographic evidence of congestive failure. 2. No airspace consolidation or large pleural effusion is identified. ECG Data Attestation: I personally reviewed and interpreted this ECG as follows: Indication: + altered mental status Rate (beats per minute): 83 Rhythm: + normal sinus ECG Intervals/blocks: + First degree AV block, + Normal QRS, + Normal QT and + Normal OR ECG [place]: + Normal ECG Findings: + Other (Nonspecific st/t abnl); no PACs and no PVCs Comparison ECG Date: from (07/26/19) Change: the following changes noted (RBBB has recolved) Blood Pressure Blood Pressure Findings: Normal blood pressure MDM Narrative This patient comes in as described above. I did give ALS medical command to talk to the paramedics prior to arrival. She had a fever and shaking chills she was given IV Tylenol and her chills of actually improved upon arrival according to the paramedics. By report she was diagnosed with UTI yesterday and that is likely her source. The human resources officer tells me there was no reported COVID at this nursing facility. She does have a history of asthma they did give her a neb treatment. I did a full sepsis work-up to also explore other etiologies for her symptoms including possible pneumonia. Also did a cardiac work-up with an EKG and troponin and chest x-ray. CAT scan of her head was also obtained. She was given additional fluid bolus of 500 cc IV normal saline and Zosyn 4.5 g IV for antibiotic coverage. There are no reported allergies in her chart. She is a diabetic and I did order a BSG as well. I looked in our electronic medical record and there are no culture results pending. Her lactic acid was not elevated. Her white count is mildly elevated. Her urinalysis does appear to be the source. She does not appear to have pneumonia. She has no significant electrolyte or metabolic abnormalities with exception of magnesium being mildly low at 1.7, she was repleted with 1 g IV magnesium in the ED. Her troponin is not elevated. She was given IV fluid bolus in the ED as well as IV antibiotics and will be admitted for further treatment evaluation of her sepsis. Continuous cardiac monitoring: Order was placed in the computer for continuous cardiac monitoring. This was due to the fact that the patient had sepsis. She was noted to be in normal sinus rhythm with a rate of 80 Impression & Plan Sepsis, Asthma, Altered mental status, Acute UTI (urinary tract infection) Discharge Plan Visit Data *Final* Discharge Date/Time: 05/02/20 12:21 Chief Complaint: Illness Stated Complaint: AMS/UTI ED Provider: Ari Mg Discharge Problem: Sepsis, Asthma, Altered mental status, Acute UTI (urinary tract infection) Patient Disposition: Admitted As Inpatient Discharge Instructions Interventions: ED Discharge Assessment Last Done: 05/02/20 12:21 Discharge Problem: Sepsis Qualifiers: Sepsis type: sepsis due to unspecified organism Sepsis acute organ dysfunction status: without acute organ dysfunction Qualified Code(s): A41.9 - Sepsis, unspecified organism Asthma Qualifiers: Asthma severity: mild Asthma persistence: intermittent Asthma complication type: with acute exacerbation Qualified Code(s): J45.21 - Mild intermittent asthma with (acute) exacerbation Altered mental status Qualifiers: Altered mental status type: unspecified Qualified Code(s): R41.82 - Altered mental status, unspecified
[2020-05-02 09:24] LABS: Basophils # (auto) 0.02 K/uL (0-0.2); Basophils % (auto) 0.2 %; Eosinophils # (auto) 0.01 K/uL (0-0.5); Eosinophils % (auto) 0.1 %; Hematocrit (blood only) 34.1 % (37-47); Hemoglobin 11.1 g/dL (12.0-16.0); Immature Granulocytes # (auto) 0.03 K/uL (0.00-0.02); Immature Granulocytes % (auto) 0.2 %; Lymphocytes # (auto) 0.77 K/uL (1.2-3.4); Lymphocytes % (auto) 6.3 %; Mean Corpuscular Hemoglobin 30.9 pg (25-34); Mean Corpuscular Hgb Conc 32.6 g/dL (32-36); Mean Platelet Volume 9.2 fL (7.4-10.4); Monocytes % (auto) 5.7 %; Neutrophils # (auto) 10.73 K/uL (1.4-6.5); Neutrophils % (auto) 87.5 %; Platelet Count 177 K/uL (130-400); RDW Coefficient of Variation 12.9 % (11.5-14.5); RDW Standard Deviation 45.1 fL (36.4-46.3); Red Blood Count 3.59 M/uL (4.2-5.4); White Blood Count 12.26 K/uL (4.8-10.8)
[2020-05-02 09:38] LABS: INR 1.1 (0.9-1.1); Partial Thromboplastin Ratio 0.9; Prothrombin Time 11.3 Seconds (9.0-12.0)
[2020-05-02 09:46] LABS: Alanine Aminotransferase 19 U/L (12-78); Aspartate Aminotransferase 30 U/L (15-37); BUN Creatinine Ratio 20.8 (10-20); Blood Urea Nitrogen 30 mg/dl (7-18); Calcium 9.2 mg/dl (8.5-10.1); Carbon Dioxide 26 mmol/L (21-32); Chloride 101 mmol/L (98-107); Creatinine Clr Calc Pharmacy 29.4 ml/min; Est GFR (African American) 37.4; Est GFR (Non-African American) 32.3; Glucose 120 mg/dl (70-99); Magnesium 1.7 mg/dl (1.8-2.4); Potassium 3.6 mmol/L (3.5-5.1); Sodium 136 mmol/L (136-145)
--- NOTE | 2020-05-02 09:49 | XRay Report ---
SINGLE VIEW CHEST CLINICAL HISTORY: Sepsis. FINDINGS: An AP, portable, upright chest radiograph is compared to study dated 07/26/2019. The examina tion is degraded by portable technique and patient rotation. A 2-lead cardiac pacemaker is unchanged in position and partially obscures the left mid chest. The heart is enlarged and there is atheroscle rotic calcification of the thoracic aorta. The pulmonary vasculature is noncongested. Chronic interst itial thickening is similar to previous. There is mild elevation of the right hemidiaphragm and bibas ilar atelectasis. No airspace consolidation or large pleural effusion is identified. A large calcifie d granuloma is again seen in the right lung base. No pneumothorax is seen. The skeletal structures ar e osteopenic. The bony thorax is grossly intact. Arthritic change is noted in the shoulders and thora cic spine. IMPRESSION: 1. Cardiomegaly and cardiac pacemaker. There is no radiographic evidence of congestive failure. 2. No airspace consolidation or large pleural effusion is identified. Electronically signed by: Ronny Ordonez M.D. 05/02/2020 9:48 AM
[2020-05-02 09:51] LABS: Albumin Globulin Ratio 0.7 (0.9-2); Alkaline Phosphatase 98 U/L (45-117); Globulin 4.1 gm/dl (2.5-4.0); Total Protein 7.1 gm/dl (6.4-8.2); Troponin I < 0.015 ng/ml (0-0.045)
[2020-05-02 09:51] LABS: Appearance Urine Turbid (Clear); Bacteria Urine Automated 4+ (Negative); Bilirubin Urine Negative (Negative); Blood Urine 2+ (Negative); Cast Urine Automated 0 /lpf (0-5); Color Urine Yellow; Epithelial Cell Urine Auto 0-5 /lpf (0-5); Glucose Urine UA Negative (Negative); Ketones Urine Negative (Negative); Leukocyte Esterase Urine 3+ (Negative); Nitrite Urine Positive (Negative); Protein Urine 1+ (Negative); Specific Gravity Urine 1.015 (1.000-1.030); Urobilinogen Urine Negative (Negative); WBC Urine Automated >30 /hpf (0-5)
[2020-05-02] MEDS ORDERED: MAGNESIUM SULFATE / D5W 1 GM/100 ML BAG IV STA (10:13)
--- NOTE | 2020-05-02 11:02 | History & Physical Report ---
Date of Service May 02, 2020 Assessment & Plan (1) Sepsis due to urinary tract infection: All blood pressure medications will be held, as systolic blood pressure is 101 at this time. Follow urine culture and sensitivity. Continue NSS at 100 mils per hour Empiric Zosyn 4.5 g IV every 8 hours Previous UTIs have been with alpha and gamma strep not enterococcus. Admit to medical telemetry for close blood pressure monitoring Present on Admission?: Yes (2) Hyperlipidemia: Continue simvastatin Present on Admission?: Yes (3) DM w/o complication type II, uncontrolled: Hold glargine. Placed on Accu-Cheks before meals and at bedtime with NovoLog coverage per scale. Check hemoglobin A1c Present on Admission?: Yes (4) Acute kidney injury superimposed on chronic kidney disease: Creatinine upon admission 1.46, with range 1.07-1.36. NSS@100 mils per hour. Repeat laboratories in a.m. Present on Admission?: Yes (5) Sepsis: Admission diagnosis sepsis as noted. All blood pressure medications being held. Present on Admission?: Yes (6) Altered mental status: Patient did have intermittent confusion during examination this morning. Likely attributable to sepsis due to UTI. Follow status post treatment continues. Present on Admission?: Yes (7) Asthma: Continue usual inhalers. Present on Admission?: Yes (8) HTN (hypertension): Holding losartan 100 mg daily, metoprolol succinate 100 mg daily, nifedipine 60 mg daily and HCTZ 25 mg daily due to borderline low blood pressure Present on Admission?: Yes History of Present Illness Chief Complaint: The patient is brought to the emergency department from [facility] after developing a fever and confusion, having been started on Cipro yesterday for urinary tract infection treatment. Primary Care Provider: Consert, [employer] [facility] The patient is an 84-year-old female resident of [facility], with a past medical history including pneumonia, urinary tract infection, hyperlipidemia, diabetes mellitus, CKD stage III, asthma, COPD, hypertension, history of total hip replacement and candidiasis of mouth and esophagus. The patient was started on Cipro for UTI yesterday by her doctor at [facility], however, the patient developed a temperature to 102.5 and became more confused, and she was sent to the emergency department for assessment. In the ED, work-up included laboratories and imaging, with a significantly abnormal urinalysis, and borderline low blood pressure, and the patient was referred for evaluation for admission for sepsis due to UTI. She did report a single episode of urinary incontinence the day before. Allergies Allergy/AdvReac Type Severity Reaction Status Date / Time No Known Drug Allergies Allergy Verified 09/30/19 15:24 Home Medications Home Medications Medication Instructions Recorded Confirmed Type Metamucil 1 tbsp PO PM 02/02/19 05/02/20 History PreserVision AREDS-2 1 tab PO BIDM 02/02/19 05/02/20 History aspirin 81 mg PO QAM 02/02/19 05/02/20 History calcium carbonate-vitamin D3 1 tab PO QAM 02/02/19 05/02/20 History [Oyster Shell Calcium-Vit D3] docusate sodium [Colace] 100 mg PO QAM 02/02/19 05/02/20 History fluoxetine 20 mg PO BID 02/02/19 05/02/20 History hydrochlorothiazide 25 mg PO QAM 02/02/19 05/02/20 History metoprolol succinate 100 mg PO QAM 02/02/19 05/02/20 History multivitamin 1 tab PO QAM 02/02/19 05/02/20 History nifedipine 60 mg PO QAM 02/02/19 05/02/20 History omega 4-qth-nzg-fish oil [Fish Oil] 1 cap PO BIDM 02/02/19 05/02/20 History simvastatin 20 mg PO QAM 02/02/19 05/02/20 History Lantus Solostar U-100 Insulin 15 unit SC HS #15 ml 02/06/19 05/02/20 Rx losartan 100 mg PO QAM 03/11/19 05/02/20 History potassium chloride 10 mEq 10 meq PO QAM tab 06/14/19 05/02/20 History tablet,extended release acetaminophen [Tylenol Extra 500 - 1,000 mg PO DAILY PRN MDD 4 07/26/19 05/02/20 History Strength] GRAMS/24 HOURS amoxicillin 2,000 mg PO ONCE PRN 07/26/19 05/02/20 History fluticasone propion-salmeterol 1 inh INHALATION BID 07/26/19 05/02/20 History [Wixela Inhub] insulin aspart U-100 [Novolog 0 units SC ACHS 07/26/19 05/02/20 History Flexpen U-100 Insulin] ipratropium-albuterol 3 ml NEB QID PRN 07/26/19 05/02/20 History ciprofloxacin HCl 500 mg PO BID 05/02/20 05/02/20 History nystatin-triamcinolone 1 applic TOPICAL UD 05/02/20 05/02/20 History Past Med/Surg History Medical History Asthma Essential (primary) hypertension Frozen shoulder Hyperlipidemia Pacemaker Surgical History H/O bilateral cataract extraction History of left hip replacement History of right hip replacement History of total abdominal hysterectomy and bilateral salpingo-oophorectomy Family History Father Cancer laryngeal (smoker) Mother Ovarian cancer Social History Preferred Language: Bangladeshi Communication Ability: Effective 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 Beliefs That Will Affect Care: None marital status: Current Living Situation: Personal Care Facility Current Living Situation Comment: maegan alc[facility]ar current occupational status: retired 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) other: 2 daughters, 1 son Feels Safe at Home: Yes Smoking Status: Never smoker Tobacco Type: cigarettes ; Cigarettes Per Day: <1/2 ppd x 40 years ; Second Hand Exposure: No ; Hx Alcohol Use: No Hx Substance Use: No Review of Systems Review of Systems: The patient denies chest pain, palpitations, shortness of breath, dyspnea on exertion, cough, lower extremity swelling, sore throat, fevers, chills, sweats, nausea, vomiting, diarrhea , constipation, abdominal pain, pelvic pain, blood in urine or stool, dysuria, urinary frequency or urgency, lightheadedness, dizziness, headache, loss of consciousness, rash, imbalance, focal weakness, numbness or tingling in arms or legs, generalized arthralgias or myalgias, back or neck pain, or night sweats. The review of systems is otherwise negative other than for that already noted above, and at least 10 systems have been reviewed. Physical Exam Physical Exam: The patient is awake, alert and oriented 2, well developed and well nourished, normocephalic and atraumatic, lying in bed and in no acute distress. HEENT--PERRL, EOMI, mucous membranes and oropharynx dry. Neck--supple. No JVD. No bruits. Thyroid normal, trachea midline, no adenopathy. Heart--normal S1 and S2. No murmurs, rubs or gallops. Lungs--clear bilaterally, no respiratory distress, no accessory muscle use. Abdomen--normal bowel sounds and soft. Nontender. Nondistended. Extremities--no cyanosis or clubbing. No edema. There are good distal pulses b/l. Dermatologic--normal skin turgor, normal color, no abnormal lymph nodes, no rash. Neurologic--cranial nerves II through XII grossly intact. Rheumatologic--normal range of motion. Psychiatric--normal affect. Results & Data Results & Data ([facility]) Vital Signs (Past 12 Hours) Vital Signs Temp Pulse Pulse Resp BP BP Pulse Ox 05/02/20 09:59 76 20 122/47 L 95 05/02/20 08:40 99.7 F H 85 20 142/81 H 92 Laboratory Results Laboratory Results WBC 12.26 K/uL (4.8-10.8) H 05/02/20 09:13 RBC 3.59 M/uL (4.2-5.4) L 05/02/20 09:13 Hgb 11.1 g/dL (12.0-16.0) L 05/02/20 09:13 Hct 34.1 % (37-47) L 05/02/20 09:13 MCV 95.0 fL (80-100) 05/02/20 09:13 MCH 30.9 pg (25-34) 05/02/20 09:13 MCHC 32.6 g/dL (32-36) 05/02/20 09:13 RDW Std Deviation 45.1 fL (36.4-46.3) 05/02/20 09:13 RDW Coeff of [place] 12.9 % (11.5-14.5) 05/02/20 09:13 Plt Count 177 K/uL (130-400) 05/02/20 09:13 MPV 9.2 fL (7.4-10.4) 05/02/20 09:13 Immature Gran % (Auto) 0.2 % 07/11/20 09:13 Neut % (Auto) 87.5 % 05/02/20 09:13 Lymph % (Auto) 6.3 % 05/02/20 09:13 [place] % (Auto) 5.7 % 05/02/20 09:13 Eos % (Auto) 0.1 % 05/02/20 09:13 Baso % (Auto) 0.2 % 05/02/20 09:13 Neut # (Auto) 10.73 K/uL (1.4-6.5) H 05/02/20 09:13 Lymph # (Auto) 0.77 K/uL (1.2-3.4) L 05/02/20 09:13 [place] # (Auto) 0.70 K/uL (0.11-0.59) H 05/02/20 09:13 Eos # (Auto) 0.01 K/uL (0-0.5) 05/02/20 09:13 Baso # (Auto) 0.02 K/uL (0-0.2) 05/02/20 09:13 Immature Gran # (Auto) 0.03 K/uL (0.00-0.02) H 05/02/20 09:13 PT 11.3 Seconds (9.0-12.0) 05/02/20 09:13 INR 1.1 (0.9-1.1) 05/02/20 09:13 APTT 24.0 Seconds (21.0-31.0) 05/02/20 09:13 PTT Ratio 0.9 05/02/20 09:13 Sodium 136 mmol/L (136-145) 05/02/20 09:13 Potassium 3.6 mmol/L (3.5-5.1) 05/02/20 09:13 Chloride 101 mmol/L (98-107) 05/02/20 09:13 Carbon Dioxide 26 mmol/L (21-32) 05/02/20 09:13 Anion Gap 8.0 (3-11) 05/02/20 09:13 BUN 30 mg/dl (7-18) H 05/02/20 09:13 Creatinine 1.46 mg/dl (0.6-1.2) H 05/02/20 09:13 Est Cr Clr Drug Dosing 29.4 ml/min 05/02/20 09:13 Est GFR ( Amer) 37.4 05/02/20 09:13 Est GFR (Non-Af Amer) 32.3 05/02/20 09:13 BUN/Creatinine Ratio 20.8 (10-20) H 05/02/20 09:13 Glucose 120 mg/dl (70-99) H 05/02/20 09:13 Lactate 1.4 mmol/L (0.4-2.0) 05/02/20 09:13 Calcium 9.2 mg/dl (8.5-10.1) 05/02/20 09:13 Magnesium 1.7 mg/dl (1.8-2.4) L 05/02/20 09:13 Total Bilirubin 1.0 mg/dl (0.2-1) 05/02/20 09:13 AST 30 U/L (15-37) 05/02/20 09:13 ALT 19 U/L (12-78) 05/02/20 09:13 Alkaline Phosphatase 98 U/L (45-117) 05/02/20 09:13 Troponin I < 0.015 ng/ml (0-0.045) 05/02/20 09:13 Total Protein 7.1 gm/dl (6.4-8.2) 05/02/20 09:13 Albumin 3.0 gm/dl (3.4-5.0) L 05/02/20 09:13 Globulin 4.1 gm/dl (2.5-4.0) H 05/02/20 09:13 Albumin/Globulin Ratio 0.7 (0.9-2) L 05/02/20 09:13 Procalcitonin 0.36 ng/ml (0-0.5) 05/02/20 09:13 Urine Color Yellow 05/02/20 09:20 Urine Appearance Turbid (Clear) A 05/02/20 09:20 Urine pH 6.0 (4.5-7.5) 05/02/20 09:20 Ur Specific [place] 1.015 (1.000-1.030) 05/02/20 09:20 Urine Protein 1+ (Negative) H 05/02/20 09:20 Urine Glucose (UA) Negative (Negative) 05/02/20 09:20 Urine Ketones Negative (Negative) 05/02/20 09:20 Urine Blood 2+ (Negative) H 05/02/20 09:20 Urine Nitrite Positive (Negative) A 05/02/20 09:20 Urine Bilirubin Negative (Negative) 05/02/20 09:20 Urine Urobilinogen Negative (Negative) 05/02/20 09:20 Ur Leukocyte Esterase 3+ (Negative) H 05/02/20 09:20 Urine WBC (Auto) >30 /hpf (0-5) H 05/02/20 09:20 Urine RBC (Auto) 5-10 /hpf (0-4) H 05/02/20 09:20 U Hyaline Cast (Auto) 0 /lpf (0-5) 05/02/20 09:20 U Epithel Cells (Auto) 0-5 /lpf (0-5) 05/02/20 09:20 Urine Bacteria (Auto) 4+ (Negative) H 05/02/20 09:20 Diagnostic Findings [place] [phone] XRay Report Patient: GLENNA KELLEY Date: 05/02/20 MR#: [id number]: [address] [facility] [address] Acct ID:[id number]: MAEGAN ALCANTAR [facility] Date: 1935[facility] Zip: [place] [address] Age: 84Location: ED Sex: F Room/Bed: Att Phy:Diagnosis: AMS/UTI Dianne Phy: Maegan Alcantar,Personal Care,IncService Date: 05/02/20 Fam Phy:Interpreting Phy: Ronny Ordonez MD Admit Phy: Ordering Phy: Ari Mg M.D. cc: ~ SINGLE VIEW CHEST CLINICAL HISTORY: Sepsis. FINDINGS: An AP, portable, upright chest radiograph is compared to study dated 07/26/2019. The examination is degraded by portable technique and patient rotation. A 2-lead cardiac pacemaker is unchanged in position and partially obscures the left mid chest. The heart is enlarged and there is atherosclerotic calcification of the thoracic aorta. The pulmonary vasculature is noncongested. Chronic interstitial thickening is similar to previous. There is mild elevation of the right hemidiaphragm and bibasilar atelectasis. No airspace consolidation or large pleural effusion is identified. A large calcified granuloma is again seen in the right lung base. No pneumothorax is seen. The skeletal structures are osteopenic. The bony thorax is grossly intact. Arthritic change is noted in the shoulders and thoracic spine. IMPRESSION: 1. Cardiomegaly and cardiac pacemaker. There is no radiographic evidence of congestive failure. 2. No airspace consolidation or large pleural effusion is identified. Electronically signed by: Ronny Ordonez M.D. 05/02/2020 9:48 AM Dictated: 05/02/20946 Transcribed: 05/02/20946 Code Status & VTE Plan Code Status Full code VTE Prophylaxis Plan VTE Prophylaxis will be ordered: Yes PG Care Time/CCT Total # of Minutes Spent Total Time Spent with Patient: Total time spent is greater than 50% in coordination of care (as documented) at patient's floor/unit and/or counseling patient: Coding Level of Care Code 91266 Initial Inpt Care Lvl 3 Diagnoses Sepsis due to urinary tract infection A41.9; N39.0 Hyperlipidemia E78.2 Hyperlipidemia type: mixed hyperlipidemia DM w/o complication type II, uncontrolled E11.65 Glycemic state: with hyperglycemia Acute kidney injury superimposed on chronic kidney disease N17.9; N18.9 Sepsis A41.9 Altered mental status R41.0 Altered mental status type: disorientation Asthma J45.909 HTN (hypertension) I10 Hypertension type: essential hypertension (1) Hyperlipidemia Hyperlipidemia type: mixed hyperlipidemia Qualified Code(s): E78.2 - Mixed hyperlipidemia (2) DM 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 (3) Altered mental status Altered mental status type: disorientation Qualified Code(s): R41.0 - Disorientation, unspecified (4) HTN (hypertension) Hypertension type: essential hypertension Qualified Code(s): I10 - Essential (primary) hypertension
[2020-05-02] MEDS ORDERED: PIPERACILLIN/TAZOBACTAM 4.5 GM in DEXTROSE 5% 100 ML IV SCH (11:15)
[2020-05-02] MEDS ORDERED: PIPERACILLIN/TAZOBACTAM 4.5 GM/120ML D5W ONE (11:28)
--- NOTE | 2020-05-02 11:47 | CT Scan Report ---
CT SCAN OF THE BRAIN WITHOUT IV CONTRAST CLINICAL HISTORY: Change in mental status. COMPARISON STUDY: CT of the brain dated 12/09/2019. TECHNIQUE: Unenhanced axial CT scan of the brain is performed from the vertex to the skull base. A do se lowering technique was utilized adhering to the principles of ALARA. CT DOSE: 537.48 mGy.cm FINDINGS: Brain parenchyma: There are age-related involutional changes noting moderate to advanced confluent s ubcortical and periventricular microangiopathic change. There is no hemorrhage, mass effect, or evide nce of acute territorial ischemia by CT criteria. [place]-white matter differentiation is preserved. No extra-axial fluid collection is seen. Ventricles, sulci, cisterns: Prominent secondary to involutional change. Intracranial vasculature: There is atherosclerotic calcification of the cavernous carotid arteries. Calvarium: Unremarkable. Sinuses and mastoids: The visualized paranasal sinuses are clear. The mastoid air cells are well pneu matized. Orbits: The bony orbits are grossly intact. There are bilateral ocular lens implants. IMPRESSION: There is no hemorrhage, mass effect, or evidence of acute territorial ischemia by CT kirit rosales. ACT 112: Negative or not required by law. Electronically signed by: Ronny Ordonez M.D. 05/02/2020 11:46 AM
[2020-05-02] MEDS ORDERED: GLUCAGON FOR INJ 1 MG VIAL SQ PRN (12:48)
[2020-05-02] MEDS ORDERED: GLUCOSE 40% GEL 15 GM TUBE PO PRN (12:48)
[2020-05-02] MEDS ORDERED: MAGNESIUM HYDROXIDE SUSP 30 ML UDC PO PRN (12:48)
[2020-05-02] MEDS ORDERED: ALBUT/IPRATROP 3MG/0.5MG NEB 3 ML VIAL NEB PRN (12:48)
[2020-05-02] MEDS ORDERED: DEXTROSE 50% 50 ML SYRINGE IV PRN (12:48)
[2020-05-02] MEDS ORDERED: ONDANSETRON INJ 2 MG/ML 2 ML VIAL IV PRN (12:48)
[2020-05-02] MEDS ORDERED: ALUMINUM/MAGNESIUM SUSP 30 ML UDC PO PRN (12:48)
[2020-05-02] MEDS ORDERED: GLUCOSE 10 TABS/TUBE PO PRN (12:48)
[2020-05-02] MEDS ORDERED: CARBOHYDRATES FOR HYPOGLYCEMIA PO PRN (12:48)
--- NOTE | 2020-05-02 12:53 | Electrocardiogram Report ---
Test Reason : Blood Pressure : / mmHG Vent. Rate : 083 BPM Atrial Rate : 083 BPM P-R Int : 212 ms QRS Dur : 086 ms QT Int : 352 ms P-R-T Axes : 077 047 105 degrees QTc Int : 413 ms Sinus rhythm with 1st degree A-V block Nonspecific ST and T wave abnormality Abnormal ECG When compared with ECG of 26-JUL-2019 20:20, Incomplete left bundle block is no longer Present Confirmed by Joshua Sullivan ([id number]) on 05/02/2020 12:52:46 PM Referred By: REFERRED SELF Confirmed By:Joshua Sullivan
[2020-05-02] MEDS: SODIUM CHLORIDE 0.9% 1000ML 1,000 ML IV SCH (14:58)
[2020-05-02] MEDS: DOCUSATE SODIUM 100 MG CAP PO SCH (14:59)
[2020-05-02] MEDS: SIMVASTATIN 20 MG TAB PO SCH (14:59)
[2020-05-02] MEDS: FLUOXETINE HCL 20 MG CAP PO SCH ×2 (15:00→20:09)
[2020-05-02] MEDS: INSULIN ASPART 100 UNITS/ML 3 ML PEN SC SCH ×3 (15:18→20:11)
[2020-05-02] MEDS: PIPERACILLIN/TAZOBACTAM 3.375 GM in DEXTROSE 5% 100 ML IV SCH (16:02)
[2020-05-02] MEDS: FLUTICASONE/VILANTEROL 200/25MCG 14 PUFFS/INHALER INH SCH (16:03)
[2020-05-02] MEDS: CEROVITE ADV FORMULA TAB PO SCH (16:03)
[2020-05-02] MEDS: HEPARIN SOD 5,000 UNIT/0.5 ML VIAL SQ SCH (20:08)
[2020-05-02] MEDS: PSYLLIUM 58.6% POWDER PACKET PO SCH (20:08)
[2020-05-03] MEDS: PIPERACILLIN/TAZOBACTAM 3.375 GM in DEXTROSE 5% 100 ML IV SCH ×3 (00:39→17:39)
[2020-05-03] MEDS: SODIUM CHLORIDE 0.9% 1000ML 1,000 ML IV SCH ×3 (00:39→17:43)
--- NOTE | 2020-05-03 08:41 | Hospitalist Progress Note ---
Date of Service May 03, 2020 Assessment & Plan (1) Bacteremia due to Gram-negative bacteria: 84 yo F with hx CKD, sinus node dysfunction with pacemaker placement, uncontrolled DM2, candidiasis of mouth and esophagus, COPD, HTN who is admitted with concern for sepsis due to UTI. Bacteremia secondary to UTI - WBC 12.38, low grade temp at 37.8 - gram negative bacilli growing in urine and all 4 blood cultures - broad spectrum coverage with Zosyn - lactic acid 1.4, procal 0.36 - Running IVNS maintenance rate for hydration maintenance UTI - UA showing turbid urine, nitrites, 3+ LE, 4+ bacteria, >30 WBC - culture growing gram negative bacilli NATALIA - baseline Cr of ~1.1 - Cr 1.46 on admission, down to 1.38 today with hydration - daily BMP to monitor, continuation oral and IV hydration - monitor input/output for proper renal function and urine formation DM2 - A1c pending. Last 6.6 09/2019 - on Lantus 15u HS at home - SSI initiated here with range 100 - 150, correction factor 25, INS:CHO 1:10 HTN - metoprolol succinate 100 mg PO AM, losartan 100 mg PO AM, HCTZ 25 mg PO AM, Nifedipine 60 mg PO AM [unconfirmed; per 09/2019 cardiac note] - holding these medications on admission given normal systolic and borderline low diastolic BP CAD - ASA and Simvastatin 20 per home regimen DVT ppx: heparin SQ BID FEN/GI: maintenance IVNS 125 ml/hr, DM2 carb diet Code Status: FUll Code Dispo: Med/Surg (2) Acute UTI (urinary tract infection): Admission and Anticipated Discharge Date Admission Date: May 02, 2020 Supervising Physician Co-Signing Physician Notes I personally examined the patient and verified all mackey points of history and exam, discussed case, and agree with decision making with Dr Cole. feeling better. discussed dx and treatment vitals noted nad heent nc at mmm breathign unlabored no accessory muscles good effort skin no rashes no pallor or icterus neuro no focal deficits UTI/sepsis POA/gram negative bacteremia - improving on zosyn, await sensitivities, then can transition to abx for hopeful dc since she's clinically doing so well HTN - home meds on hold, right now cautious fluids since septic process at play - but as she stabilizes, anticipate being able to stop fluids and resume home meds. DVT proph heparin SQ Subjective 84 yo F resident at [facility] who had an episode of urinary incontinence 2 days ago which is unusual for her. States that since then she has been feeling generally unwell and fatigued. Denies any dysuria, nocturia, increased frequency of urination. Review of Systems Constitutional: + chills and + fatigue; no fever and no body aches Respiratory: no cough and no dyspnea Cardiovascular: no chest pain, no dyspnea and no edema Gastrointestinal: no abdominal pain, no nausea, no vomiting, no constipation and no diarrhea/loose stools Genitourinary: + urinary incontinence; no dysuria, no urinary frequency, no urinary hesitancy, no urinary urgency, no nocturia and no flank pain Physical Exam Constitutional: cooperative; not ill appearing wrapped in blankets, sitting in chair in NAD Neck: normal visual inspection Respiratory: normal respiratory effort and able to speak in complete sentences; no respiratory distress, no labored breathing, no retractions, no cough and no audible wheezes Auscultation: lungs clear to auscultation bilaterally; no crackles, no rales, no rhonchi and no wheezes Cardiovascular: Rate/Rhythm: regular rate and regular rhythm Heart Sounds: normal S1 and normal S2; no gallop, no murmur and no cardiac rub Vessels: posterior tibial pulses present Extremities: no pedal edema and no edema Gastrointestinal (Abdomen): Inspection/Auscultation: abdomen normal to inspection and normal bowel sounds; abdomen not distended Percussion/Palpation: abdomen soft; abdomen nontender, no guarding, abdomen not rigid and no abdominal mass Results & Data Results & Data ([facility]) Vital Signs (Past 12 Hours) Vital Signs Temp Pulse Pulse Resp BP Pulse Ox 05/03/20 07:30 36.9 C 60 74 18 134/61 100 05/03/20 03:49 37.1 C 78 18 134/59 L 99 05/02/20 23:17 60 05/02/20 22:13 37 C 74 18 118/67 95 Laboratory Results WBC 12.38 K/uL (4.8-10.8) H 05/03/20 09:08 RBC 3.43 M/uL (4.2-5.4) L 05/03/20 09:08 Hgb 10.5 g/dL (12.0-16.0) L 05/03/20 09:08 Hct 32.0 % (37-47) L 05/03/20 09:08 MCV 93.3 fL (80-100) 05/03/20 09:08 MCH 30.6 pg (25-34) 05/03/20 09:08 MCHC 32.8 g/dL (32-36) 05/03/20 09:08 RDW Std Deviation 44.2 fL (36.4-46.3) 05/03/20 09:08 RDW Coeff of [place] 12.9 % (11.5-14.5) 05/03/20 09:08 Plt Count 157 K/uL (130-400) 05/03/20 09:08 MPV 9.2 fL (7.4-10.4) 05/03/20 09:08 Immature Gran % (Auto) 0.1 % 05/03/20 09:08 Neut % (Auto) 79.2 % 05/03/20 09:08 Lymph % (Auto) 9.3 % 05/03/20 09:08 [place] % (Auto) 10.7 % 05/03/20 09:08 Eos % (Auto) 0.5 % 05/03/20 09:08 Baso % (Auto) 0.2 % 05/03/20 09:08 Neut # (Auto) 9.81 K/uL (1.4-6.5) H 05/03/20 09:08 Lymph # (Auto) 1.15 K/uL (1.2-3.4) L 05/03/20 09:08 [place] # (Auto) 1.33 K/uL (0.11-0.59) H 05/03/20 09:08 Eos # (Auto) 0.06 K/uL (0-0.5) 05/03/20 09:08 Baso # (Auto) 0.02 K/uL (0-0.2) 05/03/20 09:08 Immature Gran # (Auto) 0.01 K/uL (0.00-0.02) 05/03/20 09:08 PT 11.3 Seconds (9.0-12.0) 05/02/20 09:13 INR 1.1 (0.9-1.1) 05/02/20 09:13 APTT 24.0 Seconds (21.0-31.0) 05/02/20 09:13 PTT Ratio 0.9 05/02/20 09:13 Sodium 136 mmol/L (136-145) 05/03/20 09:08 Potassium 3.3 mmol/L (3.5-5.1) L 05/03/20 09:08 Chloride 105 mmol/L (98-107) 05/03/20 09:08 Carbon Dioxide 26 mmol/L (21-32) 05/03/20 09:08 Anion Gap 6.0 (3-11) 05/03/20 09:08 BUN 25 mg/dl (7-18) H 05/03/20 09:08 Creatinine 1.38 mg/dl (0.6-1.2) H 05/03/20 09:08 Est Cr Clr Drug Dosing 29.8 ml/min 05/03/20 09:08 Est GFR ( Amer) 40.0 05/03/20 09:08 Est GFR (Non-Af Amer) 34.5 05/03/20 09:08 BUN/Creatinine Ratio 18.2 (10-20) 05/03/20 09:08 Glucose 168 mg/dl (70-99) H 05/03/20 09:08 POC Glucose 144 mg/dl (70-99) H 05/03/20 11:55 Lactate 1.4 mmol/L (0.4-2.0) 05/02/20 09:13 Calcium 8.6 mg/dl (8.5-10.1) 05/03/20 09:08 Magnesium 1.7 mg/dl (1.8-2.4) L 05/02/20 09:13 Total Bilirubin 1.0 mg/dl (0.2-1) 05/02/20 09:13 AST 30 U/L (15-37) 05/02/20 09:13 ALT 19 U/L (12-78) 05/02/20 09:13 Alkaline Phosphatase 98 U/L (45-117) 05/02/20 09:13 Troponin I < 0.015 ng/ml (0-0.045) 05/02/20 09:13 Total Protein 7.1 gm/dl (6.4-8.2) 05/02/20 09:13 Albumin 3.0 gm/dl (3.4-5.0) L 05/02/20 09:13 Globulin 4.1 gm/dl (2.5-4.0) H 05/02/20 09:13 Albumin/Globulin Ratio 0.7 (0.9-2) L 05/02/20 09:13 Procalcitonin 0.36 ng/ml (0-0.5) 05/02/20 09:13 Urine Color Yellow 05/02/20 09:20 Urine Appearance Turbid (Clear) A 05/02/20 09:20 Urine pH 6.0 (4.5-7.5) 05/02/20 09:20 Ur Specific [place] 1.015 (1.000-1.030) 05/02/20 09:20 Urine Protein 1+ (Negative) H 05/02/20 09:20 Urine Glucose (UA) Negative (Negative) 05/02/20 09:20 Urine Ketones Negative (Negative) 05/02/20 09:20 Urine Blood 2+ (Negative) H 05/02/20 09:20 Urine Nitrite Positive (Negative) A 05/02/20 09:20 Urine Bilirubin Negative (Negative) 05/02/20 09:20 Urine Urobilinogen Negative (Negative) 05/02/20 09:20 Ur Leukocyte Esterase 3+ (Negative) H 05/02/20 09:20 Urine WBC (Auto) >30 /hpf (0-5) H 05/02/20 09:20 Urine RBC (Auto) 5-10 /hpf (0-4) H 05/02/20 09:20 U Hyaline Cast (Auto) 0 /lpf (0-5) 05/02/20 09:20 U Epithel Cells (Auto) 0-5 /lpf (0-5) 05/02/20 09:20 Urine Bacteria (Auto) 4+ (Negative) H 05/02/20 09:20 Resident Activity Tracking Resident Involvement: Resident Care Provided Care Provided: Adult Hospital Medicine
[2020-05-03] MEDS ORDERED: MULTIVITAMIN TAB PO SCH (09:00)
[2020-05-03 09:19] LABS: Basophils # (auto) 0.02 K/uL (0-0.2); Basophils % (auto) 0.2 %; Eosinophils # (auto) 0.06 K/uL (0-0.5); Eosinophils % (auto) 0.5 %; Hemoglobin 10.5 g/dL (12.0-16.0); Immature Granulocytes # (auto) 0.01 K/uL (0.00-0.02); Immature Granulocytes % (auto) 0.1 %; Lymphocytes # (auto) 1.15 K/uL (1.2-3.4); Lymphocytes % (auto) 9.3 %; Mean Corpuscular Hemoglobin 30.6 pg (25-34); Mean Corpuscular Hgb Conc 32.8 g/dL (32-36); Mean Corpuscular Volume 93.3 fL (80-100); Mean Platelet Volume 9.2 fL (7.4-10.4); Monocytes # (auto) 1.33 K/uL (0.11-0.59); Monocytes % (auto) 10.7 %; Neutrophils # (auto) 9.81 K/uL (1.4-6.5); Neutrophils % (auto) 79.2 %; Platelet Count 157 K/uL (130-400); RDW Coefficient of Variation 12.9 % (11.5-14.5); RDW Standard Deviation 44.2 fL (36.4-46.3); Red Blood Count 3.43 M/uL (4.2-5.4); White Blood Count 12.38 K/uL (4.8-10.8)
[2020-05-03] MEDS: HEPARIN SOD 5,000 UNIT/0.5 ML VIAL SQ SCH ×2 (09:33→20:58)
[2020-05-03] MEDS: ASPIRIN 81 MG ECTAB PO SCH (09:33)
[2020-05-03] MEDS: FLUOXETINE HCL 20 MG CAP PO SCH ×2 (09:33→20:58)
[2020-05-03] MEDS: DOCUSATE SODIUM 100 MG CAP PO SCH (09:34)
[2020-05-03] MEDS: CEROVITE ADV FORMULA TAB PO SCH ×2 (09:34→17:40)
[2020-05-03] MEDS: FLUTICASONE/VILANTEROL 200/25MCG 14 PUFFS/INHALER INH SCH (09:34)
[2020-05-03] MEDS: CALCIUM 600MG + VIT D 400 IU TAB PO SCH (09:34)
[2020-05-03] MEDS: SIMVASTATIN 20 MG TAB PO SCH (09:34)
[2020-05-03] MEDS: INSULIN ASPART 100 UNITS/ML 3 ML PEN SC SCH ×4 (09:35→22:14)
[2020-05-03 09:54] LABS: BUN Creatinine Ratio 18.2 (10-20); Calcium 8.6 mg/dl (8.5-10.1); Creatinine Clr Calc Pharmacy 29.8 ml/min; Est GFR (Non-African American) 34.5; Potassium 3.3 mmol/L (3.5-5.1)
[2020-05-03] MEDS: ACETAMINOPHEN 325 MG TAB PO PRN (12:29)
[2020-05-03] MEDS ORDERED: POTASSIUM CHLORIDE 20 MEQ TABCR PO STA (17:00)
--- NOTE | 2020-05-03 19:30 | Billing Data ---
Date of Service May 03, 2020 Coding Level of Care Code 00341 Subseq Hosp Care Lvl 3
[2020-05-03] MEDS: PSYLLIUM 58.6% POWDER PACKET PO SCH (20:58)
[2020-05-04] MEDS: PIPERACILLIN/TAZOBACTAM 3.375 GM in DEXTROSE 5% 100 ML IV SCH ×2 (00:48→08:35)
[2020-05-04] MEDS ORDERED: METOPROLOL TARTRATE 1 MG/ML VIAL IV STA ×3 (02:59→04:14)
[2020-05-04] MEDS: METOPROLOL SUCC 50MG EXT REL TAB PO SCH ×2 (03:14→08:25)
[2020-05-04 03:25] LABS: Basophils # (auto) 0.01 K/uL (0-0.2); Basophils % (auto) 0.1 %; Eosinophils # (auto) 0.07 K/uL (0-0.5); Eosinophils % (auto) 0.7 %; Hematocrit (blood only) 29.9 % (37-47); Hemoglobin 9.9 g/dL (12.0-16.0); Immature Granulocytes # (auto) 0.02 K/uL (0.00-0.02); Immature Granulocytes % (auto) 0.2 %; Lymphocytes # (auto) 1.33 K/uL (1.2-3.4); Lymphocytes % (auto) 13.6 %; Mean Corpuscular Hemoglobin 30.9 pg (25-34); Mean Corpuscular Volume 93.4 fL (80-100); Monocytes # (auto) 1.22 K/uL (0.11-0.59); Monocytes % (auto) 12.4 %; Neutrophils # (auto) 7.15 K/uL (1.4-6.5); Platelet Count 154 K/uL (130-400); RDW Coefficient of Variation 12.8 % (11.5-14.5); RDW Standard Deviation 43.6 fL (36.4-46.3)
--- NOTE | 2020-05-04 03:38 | Communication Note ---
Date of Service: May 04, 2020 Ms. Mcguire went into Afib RVR with PVCs with rates in 120s abruptly. She was asymptomatic, no chest pain, no shortness of breath, no dizziness. Initially t reated with Lopressor 5mg IV. Her Metoprolol Succinate 100mg PO was being held because of soft pressures on admit in the setting of UTI/sepsis. ECG with Afib RVR LBBB. Will check electrolytes with Mag and BMP and replenish iif needed. Will restart home Metoprolol Succinate 100mg PO and bridge with Lopressor 5mg IV until pill is absorbed. Also will hold QTc prolonging meds, holding Zofran PRN and holding home Prozac. Resident Activity Tracking Resident Involvement: Resident Care Provided Care Provided: Adult Hospital Medicine
[2020-05-04 03:43] LABS: BUN Creatinine Ratio 16.3 (10-20); Calcium 8.1 mg/dl (8.5-10.1); Creatinine Clr Calc Pharmacy 37.7 ml/min; Est GFR (African American) 53.2; Est GFR (Non-African American) 45.9; Potassium 3.4 mmol/L (3.5-5.1)
[2020-05-04 03:54] LABS: Mean Corpuscular Hgb Conc 33.1 g/dL (32-36)
[2020-05-04] MEDS ORDERED: POTASSIUM CHLORIDE 20 MEQ TABCR PO ONE (04:15)
[2020-05-04] MEDS ORDERED: XOPENEX/ATROVENT 1.25mg/0.5MG NEB COMBO NEB PRN (04:29)
[2020-05-04] MEDS: SODIUM CHLORIDE 0.9% 1000ML 1,000 ML IV SCH (04:57)
[2020-05-04 06:18] LABS: Estimated Average Glucose 143 mg/dl; Hemoglobin A1C 6.6 % (4.5-5.6)
[2020-05-04] MEDS: DOCUSATE SODIUM 100 MG CAP PO SCH (08:24)
[2020-05-04] MEDS: SIMVASTATIN 20 MG TAB PO SCH (08:25)
[2020-05-04] MEDS: CALCIUM 600MG + VIT D 400 IU TAB PO SCH (08:25)
[2020-05-04] MEDS: ASPIRIN 81 MG ECTAB PO SCH (08:25)
[2020-05-04] MEDS: HEPARIN SOD 5,000 UNIT/0.5 ML VIAL SQ SCH (08:26)
[2020-05-04] MEDS: FLUTICASONE/VILANTEROL 200/25MCG 14 PUFFS/INHALER INH SCH (08:26)
[2020-05-04] MEDS: CEROVITE ADV FORMULA TAB PO SCH ×2 (08:26→17:03)
[2020-05-04] MEDS: INSULIN ASPART 100 UNITS/ML 3 ML PEN SC SCH ×4 (08:26→21:40)
[2020-05-04] MEDS: ERTAPENEM SODIUM 1,000 MG in SODIUM CHLORIDE 0.9% 50 ML IV SCH (10:45)
--- NOTE | 2020-05-04 11:35 | Hospitalist Progress Note ---
Date of Service May 04, 2020 Assessment & Plan (1) Bacteremia due to Gram-negative bacteria: 84 yo F with hx CKD, sinus node dysfunction s/p pacemaker, DM2 on insulin therapy, candidiasis of mouth and esophagus, COPD, HTN who is admitted with concern for sepsis due to UTI. Bacteremia and sepsis secondary to UTI: - WBC 12.38 on admission, low grade temp at 37.8 --> has downtrended to 9.80 and patient is afebrile. - Lactic acid 1.4, procal 0.36 on admission. - UA showing turbid urine, nitrites, 3+ LE, 4+ bacteria, >30 WBC. - Broad spectrum coverage with Zosyn initiated on admission. - Today grew ESBL E. coli in BCx x2 and UCx; ertapenem started this AM. - IVF d/c'ed as patient has good PO intake, sepsis has resolved. - Today educated patient on proper urinary hygiene, i.e. wiping front to back with urination to avoid fecal bacteria transmission. Atrial fibrillation with Rapid Ventricular Response: - This AM was in AFib with RVR to 120s, given Lopressor 5mg IV x2 and resumed home dose Toprol XL with return to normal HR. - Continues to be in AFib though with HR in the 80s; no history of in chart. Suspect patient may have had Paroxysmal AFib without symptoms which was exacerbated by her dehydration and sepsis while admitted and on cardiac monitoring. - Does not follow with a [employer], however was last seen in [address] Hanson for pacemaker placement. - Will start Eliquis 5mg BID here for AC. Patient already on metoprolol at home, this was being held due to soft BPs but have restarted. - Will consult Cardiology for both pacemaker interrogation and follow up given two years without, as well as for new onset AFib. Sinus dysfunction, s/p pacemaker: - No palpitations, no bradycardia on admission. - Will attempt to interrogate pacemaker while admitted. NATALIA: - Baseline Cr of ~1.1. - Cr 1.46 on admission, down to 1.09 today with hydration. - Daily BMP to monitor, continuation oral hydration, no further need for IVF as patient has good PO intake. - Monitor input/output for proper renal function and urine formation. DM2: - A1c 6.6, goal of <7. - On Lantus 15u HS at home. - SSI initiated here with range 100 - 150, correction factor 25, INS:CHO 1:10. HTN: - Metoprolol succinate 100 mg PO AM, losartan 100 mg PO AM, HCTZ 25 mg PO AM, Nifedipine 60 mg PO AM [unconfirmed; per 09/2019 cardiac note]. - These medications were held on admission given normal systolic and borderline low diastolic BP. - Continue to hold all but metoprolol given AFib as above. CAD: - ASA and Simvastatin 20 per home regimen. COPD: - Continue home O2 2LNC as needed, HS. Code Status: Full Code DVT ppx: Eliquis 5mg BID FEN/GI: DM2 diet Dispo: Med/Surg (2) Acute UTI (urinary tract infection): Admission and Anticipated Discharge Date Admission Date: May 02, 2020 Supervising Physician Co-Signing Physician Notes I saw the patient concurrent with the resident physician and confirmed mackey portions of the history and physical examination. I agree with the impression and plan as noted above. The patient is without complaints this morning. She remains afebrile. As noted above, she did flip into an atrial fibrillation with rapid ventricular response overnight. The rate responded to IV beta-nahid and subsequent restart of her home beta-nahid (had been on hold upon admission due to hemodynamics). UTI/sepsis POA/gram negative bacteremia -clinically improving; continue ertapenem Atrial fibrillation with RVR -she is now in a rate controlled atrial fibrillation. She is unsure if she has had this before. Will start Eliquis 5 mg p.o. twice daily. She had seen cardiology previously, though it looks like she was lost to follow-up. We will have cardiology see her for evaluation and recommendations. HTN -blood pressures have been variable but suspect they will elevate as she convalesces; beta-nahid has been resumed, and will re-add home medications as blood pressure allows. Subjective Overnight patient went into AFib with RVR, asymptomatic. Was given Lopressor 5mg IV x2, home dose metoprolol succinate 100mg and returned to HR 80s. Continues to be in AFib, and continues to deny symptoms. No chest pain, SOB, peripheral edema, palpitations, nausea, vomiting, dizziness, headaches, abdominal pain, nausea or vomiting, constipation or diarrhea. Does not recall a history of AFib. Had long discussion about urinary habits and patient admits that she usually wipes back to front when using the bathroom. Review of Systems Review of Systems: All systems reviewed & are unremarkable except as noted in HPI & below Constitutional: no fever, no chills and no malaise Respiratory: no cough and no dyspnea Cardiovascular: no chest pain, no palpitations and no edema Gastrointestinal: no abdominal pain, no constipation and no diarrhea/loose stools Genitourinary: no dysuria and no hematuria Physical Exam Constitutional: WD/WN, vitals as above Eyes: PERRL, conjunctivae normal, anicteric sclerae ENMT: external ear and nose normal, oropharynx normal Neck: normal visual inspection Respiratory: normal respiratory effort, lungs clear to auscultation Cardiovascular: Extremities: no edema HR irregularly irregular, no murmurs Gastrointestinal (Abdomen): normal bowel sounds, soft, nontender, no hepatosplenomegaly Musculoskeletal: no cyanosis or clubbing, extremities motor strength 5/5 Skin: no rashes, warm and dry Neurologic: AAOx3, normal speech. EOMI, no nystagmus. Normal visual acuity bilaterally. Psychiatric: A+Ox3, euthymic affect Results & Data Results & Data ([facility]) Vital Signs (Past 12 Hours) Vital Signs Temp Pulse Pulse Resp BP BP BP 05/04/20 07:16 37.0 C 81 18 146/83 H 05/04/20 04:53 109 H 120/72 05/04/20 04:27 109 H 120/72 05/04/20 03:26 36.9 C 111 H 20 118/71 05/04/20 03:08 110 H 141/81 H 05/04/20 02:37 110 H 144/81 H 05/04/20 00:49 72 Pulse Ox 05/04/20 07:16 95 05/04/20 04:53 05/04/20 04:27 05/04/20 03:26 97 05/04/20 03:08 05/04/20 02:37 98 05/04/20 00:49 Resident Activity Tracking Resident Involvement: Resident Care Provided Care Provided: Adult [facility]
--- NOTE | 2020-05-04 14:20 | Electrocardiogram Report ---
Test Reason : Blood Pressure : / mmHG Vent. Rate : 120 BPM Atrial Rate : 111 BPM P-R Int : 000 ms QRS Dur : 142 ms QT Int : 356 ms P-R-T Axes : 000 -15 152 degrees QTc Int : 503 ms Atrial fibrillation with rapid ventricular response with premature ventricular or aberrantly conducte d complexes Left bundle branch block Abnormal ECG When compared with ECG of 04-MAY-2020 02:41, (unconfirmed) No change Confirmed by Heriberto Lux ([id number]) on 05/04/2020 2:20:10 PM Referred By: REFERRED SELF Confirmed By:Chilo Lux
--- NOTE | 2020-05-04 14:25 | Electrocardiogram Report ---
Test Reason : Blood Pressure : / mmHG Vent. Rate : 116 BPM Atrial Rate : 074 BPM P-R Int : 000 ms QRS Dur : 092 ms QT Int : 322 ms P-R-T Axes : 000 036 215 degrees QTc Int : 447 ms Atrial fibrillation Left bundle branch block Abnormal ECG When compared with ECG of 02-MAY-2020 08:52, ST now depressed in Lateral leads T wave inversion now evident in Inferior leads Inverted T waves have replaced nonspecific T wave abnormality in Lateral leads Confirmed by Heriberto Lux ([id number]) on 05/04/2020 2:25:21 PM Referred By: REFERRED SELF Confirmed By:Chilo Lux
[2020-05-04] MEDS ORDERED: POTASSIUM CHLORIDE 20 MEQ TABCR PO STA (15:53)
--- NOTE | 2020-05-04 17:15 | Cardiology Consultation ---
Date of Consultation May 04, 2020 Assessment & Plan (1) Atrial fibrillation: She had an episode of atrial fibrillation which spontaneously converted back to sinus rhythm. This lasted approximately 12 hours. She was not symptomatic. The overall heart rates were not very high and likely would have been better controlled on her usual dose medication. However, her metoprolol have been held due to concerns about sepsis and hypotension. Medication has since been resumed. She does have an elevated risk of stroke. She has been started on Eliquis at the appropriate dose. Do not believe she requires any aspirin with her Eliquis. Continue outpatient dose of metoprolol succinate 100 mg daily Continue apixaban 5 mg twice daily Stop Aspirin (2) Acute electrocardiogram changes: She did have evidence of aberrant conduction on her EKG. Appeared to have a left bundle branch block associated with high ventricular rates. Do not believe this represents a significant concern is normally functioning dual- chamber permanent pacemaker. No evidence av conduction disease. (3) Sinus node dysfunction: Normally functioning dual-chamber permanent pacemaker (4) Pacemaker: I added preference pacing and atrial therapies to her programming today. History of Present Illness Reason for Consultation: Atrial fibrillation Requesting Physician: Luiz Attending Physician: Gurpreet Jamison DO History of Present Illness The patient is an 84-year-old woman with a history sick sinus syndrome status post implantation of dual-chamber permanent pacemaker was currently admitted for urinary tract infection. The patient is a resident at an assisted care facility and apparently developed mental status changes and fevers likely associated with a urinary tract infection. She was admitted to the hospital for treatment and early this morning was noted to have developed atrial fibrillation and high ventricular rates. The patient was unaware any change in her heart rhythm. She denies symptoms of palpitations, chest pain or worsening breathing difficulty. She is very sedentary and ambulates with a walker. Much of her activity has been curtailed over the past few months due to restrictions imposed by the carbone virus. He apparently does have a history of intermittent dizziness. This seems to have improved recently. She denies dizziness currently. She has been unaware of any palpitations leading up to her admission. She has no pain currently. She denies symptoms of orthopnea or paroxysmal nocturnal dyspnea. She has not been aware of any swelling in her lower extremities. Allergies Allergy/AdvReac Type Severity Reaction Status Date / Time No Known Drug Allergies Allergy Verified 09/30/19 15:24 Home Medications Home Medications Medication Instructions Recorded Confirmed Type Metamucil 1 tbsp PO PM 02/02/19 05/02/20 History PreserVision AREDS-2 1 tab PO BIDM 02/02/19 05/02/20 History aspirin 81 mg PO QAM 02/02/19 05/02/20 History calcium carbonate-vitamin D3 1 tab PO QAM 02/02/19 05/02/20 History [Oyster Shell Calcium-Vit D3] docusate sodium [Colace] 100 mg PO QAM 02/02/19 05/02/20 History fluoxetine 20 mg PO BID 02/02/19 05/02/20 History hydrochlorothiazide 25 mg PO QAM 02/02/19 05/02/20 History metoprolol succinate 100 mg PO QAM 02/02/19 05/02/20 History multivitamin 1 tab PO QAM 02/02/19 05/02/20 History nifedipine 60 mg PO QAM 02/02/19 05/02/20 History omega 2-ydz-sow-fish oil [Fish Oil] 1 cap PO BIDM 02/02/19 05/02/20 History simvastatin 20 mg PO QAM 02/02/19 05/02/20 History Lantus Solostar U-100 Insulin 15 unit SC HS #15 ml 02/06/19 05/02/20 Rx losartan 100 mg PO QAM 03/11/19 05/02/20 History potassium chloride 10 mEq 10 meq PO QAM tab 06/14/19 05/02/20 History tablet,extended release acetaminophen [Tylenol Extra 500 - 1,000 mg PO DAILY PRN MDD 4 07/26/19 05/02/20 History Strength] GRAMS/24 HOURS amoxicillin 2,000 mg PO ONCE PRN 07/26/19 05/02/20 History fluticasone propion-salmeterol 1 inh INHALATION BID 07/26/19 05/02/20 History [Wixela Inhub] insulin aspart U-100 [Novolog 0 units SC ACHS 07/26/19 05/02/20 History Flexpen U-100 Insulin] ipratropium-albuterol 3 ml NEB QID PRN 07/26/19 05/02/20 History ciprofloxacin HCl 500 mg PO BID 05/02/20 05/02/20 History nystatin-triamcinolone 1 applic TOPICAL UD 05/02/20 05/02/20 History Patient History Medical History Asthma (Acute) Essential (primary) hypertension Frozen shoulder Hyperlipidemia Pacemaker Surgical History H/O bilateral cataract extraction History of left hip replacement History of right hip replacement History of total abdominal hysterectomy and bilateral salpingo-oophorectomy Family History Father Cancer laryngeal (smoker) Mother Ovarian cancer Social History Preferred Language: Urdu Communication Ability: Effective Correctional Case Records Supervisor Required: No Beliefs That Will Affect Care: None marital status: Current Living Situation: Personal Care Facility Current Living Situation Comment: [facility] current occupational status: 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 She answered questions appropriately. HEENT: Sclerae are anicteric. Extraocular movements were intact. Neck: No jugular venous distention, carotid pulses are normal and equal bilaterally without bruits. Pulmonary: Clear to auscultation bilaterally. Cardiac: Regular rhythm with no murmur, gallop or rub. Chest: Well-healed pacemaker implant site in left upper pectoral area Abdomen: Soft, nontender with normal bowel sounds. Extremities: No edema. Distal pulses intact. Results & Data ([facility]) Vital Signs (Past 12 Hours) Vital Signs Temp Pulse Pulse Resp BP BP Pulse Ox 05/04/20 16:00 62 05/04/20 15:04 36.8 C 115 H 18 106/69 96 05/04/20 11:44 37.0 C 90 18 144/88 H 92 05/04/20 07:16 37.0 C 81 18 146/83 H 95 Laboratory Results Abnormal Lab Results 05/02/20 05/03/20 05/04/20 09:13 20:12 03:14 WBC 9.80 RBC 3.20 L Hgb 9.9 L Hct 29.9 L MCV 93.4 MCH 30.9 MCHC 33.1 RDW Std Deviation 43.6 RDW Coeff of [place] 12.8 Plt Count 154 MPV 9.0 Immature Gran % (Auto) 0.2 Neut % (Auto) 73.0 Lymph % (Auto) 13.6 Mayes % (Auto) 12.4 Eos % (Auto) 0.7 Baso % (Auto) 0.1 Neut # (Auto) 7.15 H Lymph # (Auto) 1.33 Mayes # (Auto) 1.22 H Eos # (Auto) 0.07 Baso # (Auto) 0.01 Immature Gran # (Auto) 0.02 Sodium Potassium Chloride Carbon Dioxide Anion Gap BUN Creatinine Est Cr Clr Drug Dosing Est GFR ( Amer) Est GFR (Non-Af Amer) BUN/Creatinine Ratio Glucose POC Glucose 107 H Estimat Average Glucose 143 Hemoglobin A1c 6.6 H Calcium Magnesium 05/04/20 05/04/20 05/04/20 03:14 07:37 11:38 WBC RBC Hgb Hct MCV MCH MCHC RDW Std Deviation RDW Coeff of [place] Plt Count MPV Immature Gran % (Auto) Neut % (Auto) Lymph % (Auto) Mayes % (Auto) Eos % (Auto) Baso % (Auto) Neut # (Auto) Lymph # (Auto) Mayes # (Auto) Eos # (Auto) Baso # (Auto) Immature Gran # (Auto) Sodium 143 D Potassium 3.4 L Chloride 110 H Carbon Dioxide 26 Anion Gap 7.0 BUN 18 Creatinine 1.09 Est Cr Clr Drug Dosing 37.7 Est GFR ( Amer) 53.2 Est GFR (Non-Af Amer) 45.9 BUN/Creatinine Ratio 16.3 Glucose 108 H POC Glucose 102 H 117 H Estimat Average Glucose Hemoglobin A1c Calcium 8.1 L Magnesium 2.0 05/04/20 16:35 WBC RBC Hgb Hct MCV MCH MCHC RDW Std Deviation RDW Coeff of [place] Plt Count MPV Immature Gran % (Auto) Neut % (Auto) Lymph % (Auto) Mayes % (Auto) Eos % (Auto) Baso % (Auto) Neut # (Auto) Lymph # (Auto) Mayes # (Auto) Eos # (Auto) Baso # (Auto) Immature Gran # (Auto) Sodium Potassium Chloride Carbon Dioxide Anion Gap BUN Creatinine Est Cr Clr Drug Dosing Est GFR ( Amer) Est GFR (Non-Af Amer) BUN/Creatinine Ratio Glucose POC Glucose 99 Estimat Average Glucose Hemoglobin A1c Calcium Magnesium Diagnostic Findings Echocardiogram performed 02/02/2019: LV function was normal. Ejection fraction 55-60%. Stage II diastolic dysfunction. Severe mitral annular calcification. No significant valvular heart disease. Chest x-ray and head CT did not demonstrate any significant abnormalities at the time of admission. I performed a complete interrogation of her dual-chamber permanent pacemaker. Normal function of both atrial ventricular leads. Only 1 episode of atrial fibrillation recorded through the device which is the 1 documented on telemetry this morning. ECG Additional Comments: EKG obtained at the time of admission revealed normal sinus rhythm with nonspecific ST and T-wave changes. EKG obtained earlier this morning demonstrated atrial fibrillation with rapid v entricular rates. I did appear to be intermittent left bundle branch block PG Care Time/CCT Total # of Minutes Spent Total Time Spent with Patient: Total time spent is greater than 50% in coordination of care (as documented) at patient's floor/unit and/or counseling patient: Coding Level of Care Code 20902 Initial Inpt Care Lvl 3 Diagnoses Atrial fibrillation I48.91 Acute electrocardiogram changes R94.31 Sinus node dysfunction I49.5 Pacemaker Z95.0 CPT Codes Dual Lead Pacemaker System - 20035 ([id number])
[2020-05-04] MEDS: PSYLLIUM 58.6% POWDER PACKET PO SCH (21:53)
[2020-05-04] MEDS: APIXABAN 5 MG TABLET PO SCH (21:53)
[2020-05-05] MEDS: METOPROLOL SUCC 50MG EXT REL TAB PO SCH (08:30)
[2020-05-05] MEDS: APIXABAN 5 MG TABLET PO SCH ×2 (08:30→21:14)
[2020-05-05] MEDS: FLUTICASONE/VILANTEROL 200/25MCG 14 PUFFS/INHALER INH SCH (08:30)
[2020-05-05] MEDS: INSULIN ASPART 100 UNITS/ML 3 ML PEN SC SCH ×4 (08:30→21:18)
[2020-05-05] MEDS: CALCIUM 600MG + VIT D 400 IU TAB PO SCH (08:30)
[2020-05-05] MEDS: CEROVITE ADV FORMULA TAB PO SCH ×2 (08:31→16:27)
[2020-05-05] MEDS: DOCUSATE SODIUM 100 MG CAP PO SCH (08:31)
[2020-05-05] MEDS: SIMVASTATIN 20 MG TAB PO SCH (08:31)
[2020-05-05] MEDS: ERTAPENEM SODIUM 1,000 MG in SODIUM CHLORIDE 0.9% 50 ML IV SCH (09:23)
[2020-05-05] MEDS ORDERED: ALBUTEROL 0.083% NEBU SOLN 3 ML VIAL NEB STA (09:39)
--- NOTE | 2020-05-05 09:43 | Hospitalist Progress Note ---
Date of Service May 05, 2020 Assessment & Plan (1) Bacteremia due to Gram-negative bacteria: 84 yo F with hx CKD, sinus node dysfunction s/p pacemaker, DM2 on insulin therapy, candidiasis of mouth and esophagus, COPD, HTN who is admitted with concern for sepsis due to UTI. Bacteremia and sepsis secondary to UTI: - WBC 12.38 on admission, low grade temp at 37.8 --> has downtrended to 9.80 and patient is afebrile. - Lactic acid 1.4, procal 0.36 on admission. - UA showing turbid urine, nitrites, 3+ LE, 4+ bacteria, >30 WBC. - Broad spectrum coverage with Zosyn initiated on admission. - 05/02 grew ESBL E. coli in BCx x2 and UCx; ertapenem started 05/04. - IVF d/c'ed as patient has good PO intake, sepsis has resolved. - Educated patient on proper urinary hygiene, i.e. wiping front to back with urination to avoid fecal bacteria transmission. - Repeat BCx ordered, will continue ertapenem for a total of 7 days. - Case Management aware and will be discharged with peripheral access for duration of Abx. Atrial fibrillation with Rapid Ventricular Response: - 05/04 patient was in AFib with RVR to 120s, given Lopressor 5mg IV x2 and resumed home dose Toprol XL with return to normal HR of 80s. - Was in AFib though with HR in the 80s for a total of about 12 hours; no history of in chart. Suspect patient may have had Paroxysmal AFib without symptoms which was exacerbated by her dehydration and sepsis while admitted and on cardiac monitoring. - Does not follow with a [employer], however was last seen [place] [address] Hanson for pacemaker placement. - Will start Eliquis 5mg BID here for AC. Patient already on metoprolol at home, this was being held due to soft BPs but have restarted. - Cardiology consulted and appreciate recs: pacemaker interrogated and this is single episode recorded of AFib; parameters adjusted. - Will need Cardiology follow up for her pacemaker and AFib following discharge. Sinus dysfunction, s/p pacemaker: - No palpitations, no bradycardia on admission. - Pacemaker interrogated, please see Cardiology note. NATALIA: - Baseline Cr of ~1.1. - Cr 1.46 on admission, down to 1.09 today with hydration. - Daily BMP to monitor, continuation oral hydration, no further need for IVF as patient has good PO intake. - Continue to monitor input/output for proper renal function and urine formation. DM2: - A1c 6.6, goal of <7. - On Lantus 15u HS at home. - SSI initiated here with range 100 - 150, correction factor 25, INS:CHO 1:10. - Anticipate return to home regimen on discharge. HTN: - Metoprolol succinate 100 mg PO AM, losartan 100 mg PO AM, HCTZ 25 mg PO AM, Nifedipine 60 mg PO AM [unconfirmed; per 09/2019 cardiac note]. - These medications were held on admission given normal systolic and borderline low diastolic BP. - Have restarted metoprolol for AFib, will resume losartan and HCTZ today given intermittent HTN. CAD: - ASA and Simvastatin 20 per home regimen. COPD: - Continue home O2 2LNC as needed qHS. Code Status: Full Code DVT ppx: Eliquis 5mg BID FEN/GI: DM2 diet Dispo: Med/Surg (2) Acute UTI (urinary tract infection): Admission and Anticipated Discharge Date Admission Date: May 02, 2020 Supervising Physician Co-Signing Physician Notes I saw the patient current resident physician and confirmed mackey portions of the history and physical examination. Agree with the impression and plan as noted above. Cardiology consultation reviewed, discussed, and appreciated. UTI/sepsis POA/gram negative bacteremia -clinically improving; continue ertapenem. Arrangements being made to continue therapy at her residence. Metabolic encephalopathy -improving with treatment of infection Atrial fibrillation with RVR -Eliquis 5 mg p.o. twice daily; aspirin is been discontinued; device has been adjusted by cardiology. HTN -with her convalescence, blood pressures have risen. Metoprolol restarted for rate control. Given her blood pressures today will resume losartan hydrochlorothiazide. Nifedipine remains on hold. Subjective Patient with some "phlegm" overnight. Otherwise feels well. States that sometimes when she "gets phlegmy" she will get an albuterol nebulizer treatment at home. She is not on any other inhalers. No chest pain, dizziness, headaches, abdominal pain, constipation or diarrhea, nausea or vomiting. Review of Systems Review of Systems: All systems reviewed & are unremarkable except as noted in Subjective Physical Exam Constitutional: WD/WN, vitals as above Eyes: PERRL, conjunctivae normal, anicteric sclerae ENMT: external ear and nose normal, oropharynx normal Neck: normal visual inspection Respiratory: normal respiratory effort, lungs clear to auscultation Cardiovascular: RRR, no murmur, no edema Extremities: no edema Gastrointestinal (Abdomen): normal bowel sounds, soft, nontender, no hepatosplenomegaly Musculoskeletal: no cyanosis or clubbing, extremities motor strength 5/5 Skin: no rashes, warm and dry Psychiatric: A+Ox3, euthymic affect Results & Data Results & Data ([facility]) Vital Signs (Past 12 Hours) Vital Signs Temp Pulse Pulse Resp BP BP Pulse Ox 05/05/20 07:38 36.8 C 66 24 154/82 H 92 05/05/20 04:32 37.0 C 69 20 147/76 H 92 05/05/20 00:38 65 05/04/20 23:56 37.1 C 73 20 142/77 H 94 Resident Activity Tracking Resident Involvement: Resident Care Provided Care Provided: Adult [facility]
[2020-05-05 10:07] LABS: Calcium 8.8 mg/dl (8.5-10.1); Est GFR (African American) 49.4; Est GFR (Non-African American) 42.6; Potassium 4.4 mmol/L (3.5-5.1)
[2020-05-05] MEDS: PSYLLIUM 58.6% POWDER PACKET PO SCH (21:13)
[2020-05-06] MEDS: LEVALBUTEROL 1.25MG/0.5ML NEB INH PRN (03:37)
[2020-05-06] MEDS: IPRATROPIUM BROMIDE NEB SOLN 0.02% 2.5 ML VIAL INH PRN (03:37)
[2020-05-06] MEDS: FLUTICASONE/VILANTEROL 200/25MCG 14 PUFFS/INHALER INH SCH (08:17)
[2020-05-06] MEDS: APIXABAN 5 MG TABLET PO SCH ×2 (08:17→22:54)
[2020-05-06] MEDS: LOSARTAN POTASSIUM 50 MG TAB PO SCH (08:17)
[2020-05-06] MEDS: hydroCHLOROthiazide 25 MG TAB PO SCH (08:17)
[2020-05-06] MEDS: CALCIUM 600MG + VIT D 400 IU TAB PO SCH (08:18)
[2020-05-06] MEDS: SIMVASTATIN 20 MG TAB PO SCH (08:18)
[2020-05-06] MEDS: METOPROLOL SUCC 50MG EXT REL TAB PO SCH (08:18)
[2020-05-06] MEDS: CEROVITE ADV FORMULA TAB PO SCH ×2 (08:18→17:23)
[2020-05-06] MEDS: INSULIN ASPART 100 UNITS/ML 3 ML PEN SC SCH ×4 (08:25→22:17)
[2020-05-06 09:25] LABS: Basophils # (auto) 0.04 K/uL (0-0.2); Basophils % (auto) 0.5 %; Eosinophils # (auto) 0.07 K/uL (0-0.5); Eosinophils % (auto) 0.8 %; Hematocrit (blood only) 29.2 % (37-47); Hemoglobin 9.7 g/dL (12.0-16.0); Immature Granulocytes # (auto) 0.03 K/uL (0.00-0.02); Immature Granulocytes % (auto) 0.4 %; Lymphocytes # (auto) 1.06 K/uL (1.2-3.4); Lymphocytes % (auto) 12.6 %; Mean Corpuscular Hemoglobin 30.9 pg (25-34); Mean Corpuscular Hgb Conc 33.2 g/dL (32-36); Monocytes # (auto) 1.01 K/uL (0.11-0.59); Monocytes % (auto) 12.1 %; Neutrophils # (auto) 6.17 K/uL (1.4-6.5); Neutrophils % (auto) 73.6 %; Platelet Count 209 K/uL (130-400); Red Blood Count 3.14 M/uL (4.2-5.4); White Blood Count 8.38 K/uL (4.8-10.8)
[2020-05-06 10:26] LABS: BUN Creatinine Ratio 14.5 (10-20); Calcium 8.9 mg/dl (8.5-10.1); Est GFR (African American) 56.3; Est GFR (Non-African American) 48.6; Potassium 4.3 mmol/L (3.5-5.1)
[2020-05-06] MEDS: ERTAPENEM SODIUM 1,000 MG in SODIUM CHLORIDE 0.9% 50 ML IV SCH (10:53)
--- NOTE | 2020-05-06 11:35 | Hospitalist Progress Note ---
Date of Service May 06, 2020 Assessment & Plan (1) Bacteremia due to Gram-negative bacteria: 84 yo F with hx CKD, sinus node dysfunction s/p pacemaker, DM2 on insulin therapy, candidiasis of mouth and esophagus, COPD, HTN who is admitted with concern for sepsis due to UTI. Bacteremia and sepsis secondary to UTI: - WBC 12.38 on admission, low grade temp at 37.8 --> has downtrended to 8.38 and patient is afebrile. - Lactic acid 1.4, procal 0.36 on admission. - UA showing turbid urine, nitrites, 3+ LE, 4+ bacteria, >30 WBC. - Broad spectrum coverage with Zosyn initiated on admission. - 05/02 grew ESBL E. coli in BCx x2 and UCx; ertapenem started 05/04. - IVF d/c'ed as patient has good PO intake, sepsis has resolved. - Educated patient on proper urinary hygiene, i.e. wiping front to back with urination to avoid fecal bacteria transmission. - Repeat BCx ordered, will continue ertapenem for a total of 7 days. - Case Management aware and will be discharged to SNF with peripheral access for duration of Abx. - CXR on 05/02 without findings suggestive of pneumonia. CXR today with LLL subtle airspace opacities. Any potential pneumonia should be covered by ertepenem except Pseudomonas; differential includes atelectasis. - Continue to monitor respiratory status, fever checks, CBC AM. Atrial fibrillation with Rapid Ventricular Response: - 05/04 patient was in AFib with RVR to 120s, given Lopressor 5mg IV x2 and resumed home dose Toprol XL with return to normal HR of 80s. - Was in AFib though with HR in the 80s for a total of about 12 hours; no history of in chart. Suspect patient may have had Paroxysmal AFib without sympt oms which was exacerbated by her dehydration and sepsis while admitted and on cardiac monitoring. - Does not follow with a Terminal Superintendent, however was last seen [place] [address] Hanson for pacemaker placement. - Will start Eliquis 5mg BID here for AC. Patient already on metoprolol at home, this was being held due to soft BPs but have restarted. - Cardiology consulted and appreciate recs: pacemaker interrogated and this is single episode recorded of AFib; parameters adjusted. - Will need Cardiology follow up (Dr. Hanson) for her pacemaker and AFib following discharge. Metabolic encephalopathy: - With waxing and waning level of alertness, differentials include metabolic derangement, delirium 2/2 hospitalization in the elderly, infection. - VBG normal. Admitted with bacteremia sensitive to ertepenem, on Abx treatment since 05/04. COPD: - Continue home O2 2LNC as needed qHS. - Received nebulizer x1 yesterday with some relief in sputum production, some improvement in wheezing. - Due to persistent wheezing and Hx COPD have started Incruse Ellipta inhaler this admission. NATALIA: - Baseline Cr of ~1.1. - Cr 1.46 on admission, down to 1.04 with IV/PO hydration. - Daily BMP to monitor, continuation oral hydration, no further need for IVF as patient has good PO intake. - Continue to monitor input/output for proper renal function and urine formation. DM2: - A1c 6.6, goal of <7. - On Lantus 15u HS at home. - SSI initiated here with range 100 - 150, correction factor 25, INS:CHO 1:10. - Anticipate return to home regimen on discharge. Sinus dysfunction, s/p pacemaker: - No palpitations, no bradycardia on admission. - Pacemaker interrogated, please see Cardiology note. HTN: - Metoprolol succinate 100 mg PO AM, losartan 100 mg PO AM, HCTZ 25 mg PO AM, Nifedipine 60 mg PO AM [unconfirmed; per 09/2019 cardiac note]. - These medications were held on admission given normal systolic and borderline low diastolic BP. - Have restarted metoprolol for AFib, losartan and HCTZ. CAD: - ASA and Simvastatin 20 per home regimen. Code Status: Full Code DVT ppx: Eliquis 5mg BID FEN/GI: DM2 diet Dispo: Med/Surg (2) Acute UTI (urinary tract infection): Admission and Anticipated Discharge Date Admission Date: May 02, 2020 Supervising Physician Co-Signing Physician Notes I saw the patient current resident physician and confirmed mackey portions of the history and physical examination. Agree with the impression and plan as noted above. Upon exam there is some mild very end expiratory wheezing bilaterally. Chest x-ray this morning showed subtle airspace opacity in the left mid lower lung zone, although no findings upon auscultation that localized to this area. UTI/sepsis POA/gram negative bacteremia -clinically improving; continue ertapenem. Arrangements being made to continue therapy at her residence. Metabolic encephalopathy -mild confusion this morning and upon our exam; monitor. She is in a private room, negative pressure room (not because she needs it but out of circumstance), and this plus the excessive counting to to her contact cautions as well as the hospitals overall COVID precautions may be contributing to her confusion. Atrial fibrillation with RVR -Eliquis 5 mg p.o. twice daily. HTN -improved control today with re-addition of losartan and hydrochlorothiazide. Nifedipine remains on hold. Subjective Patient without acute events overnight. No chest pain, dizziness, headaches, abdominal pain, constipation or diarrhea, nausea or vomiting. No fevers or chills. Per nursing somewhat decreased level of alertness this afternoon. On second interview somewhat conversationally confused, alert to name and that "I am in the hospital for medicine". Reports feeling more well with regard to her breathing today, saying that "the nebulizer yesterday helped". Review of Systems Review of Systems: All systems reviewed & are unremarkable except as noted in Subjective Physical Exam Constitutional: WD/WN, vitals as above Eyes: PERRL, conjunctivae normal, anicteric sclerae ENMT: external ear and nose normal, oropharynx normal Neck: normal visual inspection Respiratory: normal respiratory effort mild bilateral expiratory wheezes, no crackles Cardiovascular: RRR, no murmur, no edema Extremities: no edema Gastrointestinal (Abdomen): normal bowel sounds, soft, nontender, no hepatosplenomegaly Musculoskeletal: no cyanosis or clubbing, extremities motor strength 5/5 Skin: no rashes, warm and dry Psychiatric: A+Ox3, euthymic affect intermittent confusion; stated to nurse that "she is afraid we have her locked up". Results & Data Results & Data ([facility]) Vital Signs (Past 12 Hours) Vital Signs Temp Pulse Pulse Resp BP BP Pulse Ox 05/06/20 11:19 36.8 C 71 20 160/80 H 97 05/06/20 06:45 36.6 C 81 20 169/87 H 95 05/06/20 03:45 36.5 C 72 20 164/77 H 97 05/06/20 03:44 66 20 97 05/05/20 23:54 66 05/05/20 23:36 36.9 C 74 20 158/81 H 98 Resident Activity Tracking Resident Involvement: Resident Care Provided Care Provided: Adult Hospital Medicine
[2020-05-06 12:45] LABS: Base Excess VBG 1.9 mEq/L; Oxygen Saturation VBG 65.5 %; pH VBG 7.42 (7.36-7.41)
[2020-05-06] MEDS: DOCUSATE SODIUM 100 MG CAP PO SCH (12:59)
[2020-05-06] MEDS: UMECLIDINIUM BROMIDE 62.5MCG/BLISTER 7 PUFFS/INHALER INH SCH (12:59)
--- NOTE | 2020-05-06 13:03 | XRay Report ---
XR chest 1V portable CLINICAL HISTORY: Wheezing, AMS COMPARISON STUDY: 05/02/2020 FINDINGS: The heart is borderline enlarged. There is mild elevation of interstitium. There are airspa ce opacities within the left mid lower lung zone suspicious for a pneumonitis. Focal edema could pote ntially appear similar. Clinical and radiographic follow-up is recommended. There is a left subclavia n dual-chamber central venous pacemaker.[ IMPRESSION: 1. Subtle airspace opacities within the left mid lower lung zone, possibly representing a pneumonia. Clinical and radiographic follow-up is recommended. ACT 112: Negative or not required by law. Electronically signed by: Nahun Arreola M.D. 05/06/2020 1:02 PM
[2020-05-06] MEDS: PSYLLIUM 58.6% POWDER PACKET PO SCH (22:54)
[2020-05-07] MEDS: LEVALBUTEROL 1.25MG/0.5ML NEB INH PRN (01:09)
[2020-05-07] MEDS: IPRATROPIUM BROMIDE NEB SOLN 0.02% 2.5 ML VIAL INH PRN (01:09)
[2020-05-07 06:02] LABS: Basophils # (auto) 0.05 K/uL (0-0.2); Basophils % (auto) 0.5 %; Eosinophils # (auto) 0.06 K/uL (0-0.5); Eosinophils % (auto) 0.6 %; Hematocrit (blood only) 28.3 % (37-47); Hemoglobin 9.5 g/dL (12.0-16.0); Immature Granulocytes # (auto) 0.06 K/uL (0.00-0.02); Immature Granulocytes % (auto) 0.6 %; Lymphocytes % (auto) 12.3 %; Mean Corpuscular Hemoglobin 30.9 pg (25-34); Mean Corpuscular Hgb Conc 33.6 g/dL (32-36); Mean Corpuscular Volume 92.2 fL (80-100); Mean Platelet Volume 9.8 fL (7.4-10.4); Monocytes # (auto) 1.41 K/uL (0.11-0.59); Monocytes % (auto) 13.4 %; Neutrophils # (auto) 7.66 K/uL (1.4-6.5); Neutrophils % (auto) 72.6 %; Platelet Count 233 K/uL (130-400); RDW Coefficient of Variation 12.8 % (11.5-14.5); RDW Standard Deviation 42.7 fL (36.4-46.3); Red Blood Count 3.07 M/uL (4.2-5.4); White Blood Count 10.54 K/uL (4.8-10.8)
[2020-05-07 07:11] LABS: BUN Creatinine Ratio 12.1 (10-20); Calcium 9.1 mg/dl (8.5-10.1); Creatinine Clr Calc Pharmacy 43.7 ml/min; Est GFR (African American) 62.9; Est GFR (Non-African American) 54.2; Potassium 3.8 mmol/L (3.5-5.1)
[2020-05-07] MEDS: FLUTICASONE/VILANTEROL 200/25MCG 14 PUFFS/INHALER INH SCH (08:07)
[2020-05-07] MEDS: UMECLIDINIUM BROMIDE 62.5MCG/BLISTER 7 PUFFS/INHALER INH SCH (08:07)
[2020-05-07] MEDS: DOCUSATE SODIUM 100 MG CAP PO SCH (08:07)
[2020-05-07] MEDS: INSULIN ASPART 100 UNITS/ML 3 ML PEN SC SCH ×4 (08:10→20:46)
[2020-05-07] MEDS: APIXABAN 5 MG TABLET PO SCH ×2 (08:39→20:30)
[2020-05-07] MEDS: CALCIUM 600MG + VIT D 400 IU TAB PO SCH (08:39)
[2020-05-07] MEDS: CEROVITE ADV FORMULA TAB PO SCH ×2 (08:40→16:32)
[2020-05-07] MEDS: LOSARTAN POTASSIUM 50 MG TAB PO SCH (08:40)
[2020-05-07] MEDS: METOPROLOL SUCC 50MG EXT REL TAB PO SCH (08:40)
[2020-05-07] MEDS: hydroCHLOROthiazide 25 MG TAB PO SCH (08:41)
[2020-05-07] MEDS: SIMVASTATIN 20 MG TAB PO SCH (08:41)
[2020-05-07] MEDS: ERTAPENEM SODIUM 1,000 MG in SODIUM CHLORIDE 0.9% 50 ML IV SCH (10:28)
--- NOTE | 2020-05-07 15:14 | Hospitalist Progress Note ---
Date of Service May 07, 2020 Assessment & Plan (1) Bacteremia due to Gram-negative bacteria: 84 yo F with hx CKD, sinus node dysfunction s/p pacemaker, DM2 on insulin therapy, candidiasis of mouth and esophagus, COPD, HTN admitted with sepsis and bacteremia 2/2 ESBL E coli UTI. Bacteremia and sepsis secondary to UTI: - WBC 12.38 on admission, low grade temp at 37.8 --> has downtrended to 10 and patient is afebrile. - Lactic acid 1.4, procal 0.36 on admission. - UA showing turbid urine, nitrites, 3+ LE, 4+ bacteria, >30 WBC. - Broad spectrum coverage with Zosyn initiated on admission. - 05/02 grew ESBL E. coli in BCx x2 and UCx; ertapenem started 05/04. - IVF d/c'ed as patient has good PO intake, sepsis has resolved. - Educated patient on proper urinary hygiene, i.e. wiping front to back with urination to avoid fecal bacteria transmission. - Repeat BCx ordered and negative to date, will continue ertapenem for a total of 7 days (complete 05/11). - Case Management aware and will be discharged to SNF with peripheral access for duration of Abx. - CXR on 05/02 without findings suggestive of pneumonia. CXR 05/05 with LLL subtle airspace opacities. Any potential pneumonia should be covered by ertepenem except Pseudomonas; differential includes atelectasis. Patient's breathing improved today on inhaler. - Continue to monitor respiratory status, fever checks, CBC AM while admitted. - Awaiting placement to SNF. Atrial fibrillation with Rapid Ventricular Response: - 05/04 patient was in AFib with RVR to 120s, given Lopressor 5mg IV x2 and resumed home dose Toprol XL with return to normal HR of 80s. - Was in AFib though with HR in the 80s for a total of about 12 hours; no history of in chart. Suspect patient may have had Paroxysmal AFib without symptoms which was exacerbated by her dehydration and sepsis while ad mitted and on cardiac monitoring. - Does not follow with a Industrial/Organizational Psychologist, however was last seen in [address] Hanson for pacemaker placement. - Have started Eliquis 5mg BID here for AC. Patient already on metoprolol at home, this was being held due to soft BPs but have restarted. - Cardiology consulted and appreciate recs: pacemaker interrogated and this is single episode recorded of AFib; parameters adjusted. - Will need Cardiology follow up (Dr. Hanson) for her pacemaker and AFib following discharge. Metabolic encephalopathy: - With waxing and waning level of alertness, differentials include metabolic derangement, delirium 2/2 hospitalization in the elderly, infection. - VBG normal. Admitted with bacteremia sensitive to ertepenem, on Abx treatment since 05/04. - Doing well and AAOx3 today. Likely delirium 2/2 hospitalization. COPD: - Continue home O2 2LNC as needed qHS. - Received nebulizer x1 yesterday with some relief in sputum production, some improvement in wheezing. - Due to persistent wheezing and Hx COPD have started Incruse Ellipta inhaler this admission. NATALIA: - Baseline Cr of ~1.1. - Cr 1.46 on admission, down to 1.04 with IV/PO hydration. - Daily BMP to monitor, continuation oral hydration, no further need for IVF as patient has good PO intake. - Continue to monitor input/output for proper renal function and urine formation. DM2: - A1c 6.6, goal of <7. - On Lantus 15u HS at home. - SSI initiated here with range 100 - 150, correction factor 25, INS:CHO 1:10. - Anticipate return to home regimen on discharge. Sinus dysfunction, s/p pacemaker: - No palpitations, no bradycardia on admission. - Pacemaker interrogated, please see Cardiology note. HTN: - Metoprolol succinate 100 mg PO AM, losartan 100 mg PO AM, HCTZ 25 mg PO AM, Nifedipine 60 mg PO AM [unconfirmed; per 09/2019 cardiac note]. - These medications were held on admission given normal systolic and borderline low diastolic BP. - Have restarted all home medications as above at this time. CAD: - ASA and Simvastatin 20 per home regimen. Code Status: Full Code DVT ppx: Eliquis 5mg BID FEN/GI: DM2 diet Dispo: Med/Surg (2) Acute UTI (urinary tract infection): Admission and Anticipated Discharge Date Admission Date: May 02, 2020 Supervising Physician Co-Signing Physician Notes I saw the patient current resident physician and confirmed mackey portions of the history and physical examination. Agree with the impression and plan as noted above. Upon exam midafternoon, the patient is sleeping but awakens to voice. She is alert and oriented. She has no complaints. The altered sensorium is yesterday is not present today. UTI/sepsis POA/gram negative bacteremia -clinically improving; continue ertapenem. Arrangements being made to continue therapy at her residence. Metabolic encephalopathy -waxes and wanes, but midafternoon today, there is no evidence of such. Atrial fibrillation with RVR -Eliquis 5 mg p.o. twice daily. HTN -blood pressures trending up so we will resume her home nifedipine which have been on hold. Her other home blood pressure medications have also been restarted previously. Subjective Patient with some confusion overnight, and intermittent episodes of incontinence. This morning and afternoon patient feels well, no shortness of breath or chest pain, no nausea or vomiting, no constipation or diarrhea, Review of Systems Review of Systems: All systems reviewed & are unremarkable except as noted in Subjective Physical Exam Constitutional: WD/WN, vitals as above Eyes: PERRL, conjunctivae normal, anicteric sclerae ENMT: external ear and nose normal, oropharynx normal Neck: normal visual inspection Respiratory: normal respiratory effort mild bilateral expiratory wheezes, no crackles Cardiovascular: RRR, no murmur, no edema Extremities: no edema Gastrointestinal (Abdomen): normal bowel sounds, soft, nontender, no hepatosplenomegaly Musculoskeletal: no cyanosis or clubbing, extremities motor strength 5/5 Skin: no rashes, warm and dry Psychiatric: A+Ox3, euthymic affect Results & Data Results & Data ([facility]) Vital Signs (Past 12 Hours) Vital Signs Temp Pulse Pulse Resp BP Pulse Ox 05/07/20 15:00 36.4 C L 62 18 152/69 H 100 05/07/20 11:22 36.8 C 65 20 158/83 H 93 05/07/20 08:45 73 05/07/20 07:19 37.1 C 86 18 151/69 H 94 05/07/20 03:25 36.5 C 90 22 145/54 H 92 Resident Activity Tracking Resident Involvement: Resident Care Provided Care Provided: Adult [facility] Medicine
[2020-05-07] MEDS: PSYLLIUM 58.6% POWDER PACKET PO SCH (20:35)
[2020-05-08 07:56] LABS: Basophils # (auto) 0.04 K/uL (0-0.2); Basophils % (auto) 0.3 %; Eosinophils # (auto) 0.07 K/uL (0-0.5); Eosinophils % (auto) 0.5 %; Hematocrit (blood only) 30.2 % (37-47); Immature Granulocytes # (auto) 0.06 K/uL (0.00-0.02); Immature Granulocytes % (auto) 0.4 %; Lymphocytes # (auto) 1.09 K/uL (1.2-3.4); Lymphocytes % (auto) 7.9 %; Mean Corpuscular Hemoglobin 30.8 pg (25-34); Mean Corpuscular Hgb Conc 33.1 g/dL (32-36); Mean Corpuscular Volume 92.9 fL (80-100); Monocytes # (auto) 1.47 K/uL (0.11-0.59); Monocytes % (auto) 10.7 %; Neutrophils # (auto) 11.05 K/uL (1.4-6.5); Neutrophils % (auto) 80.2 %; Platelet Count 289 K/uL (130-400); RDW Coefficient of Variation 12.6 % (11.5-14.5); RDW Standard Deviation 43.1 fL (36.4-46.3); Red Blood Count 3.25 M/uL (4.2-5.4); White Blood Count 13.78 K/uL (4.8-10.8)
[2020-05-08 08:25] LABS: BUN Creatinine Ratio 11.5 (10-20); Calcium 9.5 mg/dl (8.5-10.1); Creatinine Clr Calc Pharmacy 41.6 ml/min; Est GFR (African American) 59.8; Est GFR (Non-African American) 51.6; Potassium 3.9 mmol/L (3.5-5.1)
[2020-05-08] MEDS: INSULIN ASPART 100 UNITS/ML 3 ML PEN SC SCH ×4 (09:21→20:56)
[2020-05-08] MEDS: ACETAMINOPHEN 325 MG TAB PO PRN ×2 (09:24→13:12)
[2020-05-08] MEDS: CALCIUM 600MG + VIT D 400 IU TAB PO SCH (09:24)
[2020-05-08] MEDS: METOPROLOL SUCC 50MG EXT REL TAB PO SCH (09:25)
[2020-05-08] MEDS: hydroCHLOROthiazide 25 MG TAB PO SCH (09:25)
[2020-05-08] MEDS: SIMVASTATIN 20 MG TAB PO SCH (09:25)
[2020-05-08] MEDS: LOSARTAN POTASSIUM 50 MG TAB PO SCH (09:25)
[2020-05-08] MEDS: APIXABAN 5 MG TABLET PO SCH ×2 (09:26→21:00)
[2020-05-08] MEDS: FLUTICASONE/VILANTEROL 200/25MCG 14 PUFFS/INHALER INH SCH (09:26)
[2020-05-08] MEDS: UMECLIDINIUM BROMIDE 62.5MCG/BLISTER 7 PUFFS/INHALER INH SCH (09:26)
--- NOTE | 2020-05-08 09:27 | XRay Report ---
XR chest 1V portable CLINICAL HISTORY: leukocytosis COMPARISON STUDY: 05/06/2020 FINDINGS: The heart is normal in size. There is a left subclavian dual-chamber central venous pacemak er present. There is no failure. There is no lobar consolidation. There are old left-sided rib fractu res. There is indistinctness of the left cardiophrenic angle, atelectasis versus pneumonia. IMPRESSION: Improving left basilar airspace opacities with residual indistinctness of the left phreni c angle, atelectasis versus pneumonia. ACT 112: Negative or not required by law. Electronically signed by: Nahun Arreola M.D. 05/08/2020 9:26 AM
[2020-05-08] MEDS: CEROVITE ADV FORMULA TAB PO SCH ×2 (09:28→16:16)
[2020-05-08] MEDS: NIFEdipine EXTENDED REL 30 MG TABCR PO SCH (09:28)
[2020-05-08] MEDS: DOCUSATE SODIUM 100 MG CAP PO SCH (09:31)
[2020-05-08] MEDS: ERTAPENEM SODIUM 1,000 MG in SODIUM CHLORIDE 0.9% 50 ML IV SCH (10:47)
--- NOTE | 2020-05-08 15:04 | Hospitalist Progress Note ---
Date of Service May 08, 2020 Assessment & Plan (1) Bacteremia due to Gram-negative bacteria: 84 yo F with hx CKD, sinus node dysfunction s/p pacemaker, DM2 on insulin therapy, candidiasis of mouth and esophagus, COPD, HTN admitted with sepsis and bacteremia 2/2 ESBL E coli UTI. Bacteremia and sepsis secondary to UTI: - WBC 12.38 on admission -> 10 -> 13.78 today with low grade fever, however without complaints and with broad spectrum antibiotics. - UA this admission showing turbid urine, nitrites, 3+ LE, 4+ bacteria, >30 WBC. - Broad spectrum coverage with Zosyn initiated on admission. - 05/02 grew ESBL E. coli in BCx x2 and UCx; ertapenem started 05/04. - IVF d/c'ed as patient has reasonable PO intake, sepsis has resolved. - Repeat BCx ordered and negative to date, will continue ertapenem for a total of 7 days (complete 05/11). - Case Management aware and will be discharged to SNF with peripheral access for duration of Abx due to elevated WBC with . - CXR on 05/02 without findings suggestive of pneumonia. CXR 05/05 with LLL subtle airspace opacities. CXR 05/08 with improving left basilar airspace opacities with residual indistinctness of the left phrenic angle, atelectasis versus pneumonia. - Any potential pneumonia should be covered by ertepenem except Pseudomonas; differential includes atelectasis. Patient's breathing improved on inhaler however with tightness on auscultation; will do neb x1. - Continue to monitor respiratory status, fever checks, CBC AM while admitted. - This admission I educated patient on proper urinary hygiene, i.e. wiping front to back with urination to avoid fecal bacteria transmission. - Awaiting placement to SNF. Atrial fibrillation with Rapid Ventricular Response: - 05/04 patient was in AFib with RVR to 120s, given Lopressor 5mg IV x2 and resumed home dose Toprol XL with return to normal HR of 80s. - Was in AFib though with HR in the 80s for a total of about 12 hours; no history of in chart. Suspect patient may have had Paroxysmal AFib without symptoms which was exacerbated by her dehydration and sepsis while admitted and on cardiac monitoring. - Does not follow with a Bilingual Sales Consultant, however was last seen in [address] Hanson for pacemaker placement. - Have started Eliquis 5mg BID here for AC. Patient already on metoprolol at home, this was being held due to soft BPs but have restarted. - Cardiology consulted and appreciate recs: pacemaker interrogated and this is single episode recorded of AFib; parameters adjusted. - Will need Cardiology follow up (Dr. Hanson) for her pacemaker and AFib following discharge. Metabolic encephalopathy: - With waxing and waning level of alertness, differentials include metabolic derangement, delirium 2/2 hospitalization in the elderly, infection. - VBG normal. Admitted with bacteremia sensitive to ertepenem, on Abx treatment since 05/04. - Doing well and AAOx3 today. Likely delirium 2/2 hospitalization. COPD: - Continue home O2 2LNC as needed qHS. - As patient had some relief in sputum production and chest congestion with neb, some improvement in wheezing, will repeat x1. - Due to persistent wheezing and Hx COPD have started Incruse Ellipta inhaler this admission. NATALIA: - Baseline Cr of ~1.1. - Cr 1.46 on admission, down to 0.99 with IV/PO hydration. - Daily BMP to monitor, continuation oral hydration, no further need for IVF as patient has good PO intake. - Continue to monitor input/output for proper renal function and urine formation. DM2: - A1c 6.6, goal of <7. - On Lantus 15u HS at home. - SSI initiated here with range 100 - 150, correction factor 25, INS:CHO 1:10. - Anticipate return to home regimen on discharge. Sinus dysfunction, s/p pacemaker: - No palpitations, no bradycardia on admission. - Pacemaker interrogated, please see Cardiology note. HTN: - Metoprolol succinate 100 mg PO AM, losartan 100 mg PO AM, HCTZ 25 mg PO AM, Nifedipine 60 mg PO AM [unconfirmed; per 09/2019 cardiac note]. - These medications were held on admission given normal systolic and borderline low diastolic BP. - Have restarted all home medications as above at this time. CAD: - ASA and Simvastatin 20 per home regimen. Code Status: Full Code DVT ppx: Eliquis 5mg BID FEN/GI: DM2 diet Dispo: Med/Surg (2) Acute UTI (urinary tract infection): Admission and Anticipated Discharge Date Admission Date: May 02, 2020 Supervising Physician Co-Signing Physician Notes Patient seen and examined with PGY-2 Dr. Lawler. Agree with history, exam findings, assessment and plan of care as outlined. In brief, Ms. Mcguire is an 84 year old female with history significant for afib, COPD, DM, and HTN admitted with gram negative bacteremia from a urinary source. She is feeling ok today. No much of an appetite. Denies dyspnea or new cough. On exam, she is talking and breathing comfortably on 3L NC O2. Dimished air movement. Prolonged expiratory phase with wheezes throughout. Heart if irregularly irregular. 1. Gram neg bacteremia, urinary source. Urine growing ESBL. On ertapenem. Abx course to be completed on 05/11. Repeat blood cultures neg x 48 hours. 2. Leukocytosis. Was improving, now bumped up to 13. Obtaining CXR. Monitor for fever. 3. afib. rate controlled now. Continue toprol XL. AC with Eliquis. Has pacer--parameters were adjusted this admission. 4. COPD. Started on inhalers/nebs this admission. 5. DM. A1C 6.6. Ok to be a bit more liberal with her glucose control given her age. Dispo: pending bed availability at SNF. Subjective Patient with near-febrile episode (37.9Celsius) overnight, quickly resolved after removing one of several blankets. Without other events overnight. Today denies chest pain, trouble breathing, fevers or chills, abdominal pain. Was alert during my interview. Review of Systems Review of Systems: All systems reviewed & are unremarkable except as noted in Subjective Physical Exam Constitutional: well developed and well nourished Eyes: PERRL, conjunctivae normal, anicteric sclerae Neck: normal visual inspection Respiratory: normal respiratory effort bilateral wheezes on expiration, no crackles Cardiovascular: Rate/Rhythm: regular rate and regular rhythm Extremities: + edema (trace, bilateral LE) Gastrointestinal (Abdomen): normal bowel sounds, soft, nontender, no hepatosplenomegaly Skin: no rashes, warm and dry Results & Data Results & Data ([facility]) Vital Signs (Past 12 Hours) Vital Signs Temp Pulse Pulse Resp BP Pulse Ox 05/08/20 11:56 36.9 C 74 20 153/75 H 94 05/08/20 07:43 37.1 C 81 18 136/59 L 100 05/08/20 07:00 76 05/08/20 04:27 37.9 C H 89 20 166/63 H 98 Resident Activity Tracking Resident Involvement: Resident Care Provided Care Provided: Adult Hospital Medicine
[2020-05-08] MEDS ORDERED: LEVALBUTEROL HCL 0.63 MG/3 ML NEB NEB STA (17:53)
[2020-05-08] MEDS: PSYLLIUM 58.6% POWDER PACKET PO SCH (21:00)
[2020-05-09 06:32] LABS: Basophils # (auto) 0.03 K/uL (0-0.2); Basophils % (auto) 0.2 %; Eosinophils # (auto) 0.21 K/uL (0-0.5); Eosinophils % (auto) 1.7 %; Immature Granulocytes # (auto) 0.06 K/uL (0.00-0.02); Immature Granulocytes % (auto) 0.5 %; Lymphocytes # (auto) 1.48 K/uL (1.2-3.4); Lymphocytes % (auto) 12.2 %; Mean Corpuscular Hemoglobin 30.2 pg (25-34); Mean Corpuscular Hgb Conc 32.3 g/dL (32-36); Mean Corpuscular Volume 93.7 fL (80-100); Mean Platelet Volume 9.5 fL (7.4-10.4); Monocytes # (auto) 1.13 K/uL (0.11-0.59); Monocytes % (auto) 9.3 %; Neutrophils % (auto) 76.1 %; Platelet Count 348 K/uL (130-400); RDW Coefficient of Variation 12.8 % (11.5-14.5); RDW Standard Deviation 43.3 fL (36.4-46.3); Red Blood Count 3.31 M/uL (4.2-5.4); White Blood Count 12.11 K/uL (4.8-10.8)
--- NOTE | 2020-05-09 07:04 | Hospitalist Progress Note ---
Date of Service May 09, 2020 Assessment & Plan (1) Bacteremia due to Gram-negative bacteria: 84 yo F with hx CKD, sinus node dysfunction s/p pacemaker, DM2 on insulin therapy, candidiasis of mouth and esophagus, COPD, HTN admitted with sepsis and bacteremia 2/2 ESBL E coli UTI. Bacteremia and sepsis secondary to UTI: - WBC 13.78-> 12.11 on broad spectrum antibiotics. - UA this admission showing turbid urine, nitrites, 3+ LE, 4+ bacteria, >30 WBC. - Broad spectrum coverage with Zosyn initiated on admission. - 05/02 grew ESBL E. coli in BCx x2 and UCx; ertapenem started 05/04. - Restarted IVF for NATALIA as below. - Repeat BCx ordered and negative to date, will continue ertapenem for a total of 7 days (complete 05/11). - Case Management aware and will be discharged to SNF with peripheral access for duration of Abx due to elevated WBC with . - CXR on 05/02 without findings suggestive of pneumonia. CXR 05/05 with LLL subtle airspace opacities. CXR 05/08 with improving left basilar airspace opacities with residual indistinctness of the left phrenic angle, atelectasis versus pneumonia. - Any potential pneumonia should be covered by ertepenem except Pseudomonas; differential includes atelectasis. Patient's breathing improved on inhaler however with tightness on auscultation; will do neb x1. - Continue to monitor respiratory status, fever checks, CBC AM while admitted. - This admission I educated patient on proper urinary hygiene, i.e. wiping front to back with urination to avoid fecal bacteria transmission. - Awaiting placement to SNF vs. personal fpc on Monday. Metabolic encephalopathy: - With waxing and waning level of alertness, differentials include metabolic derangement, delirium 2/2 hospitalization in the elderly, infection. - VBG normal. Admitted with bacteremia sensitive to ertepenem, on Abx treatment since 05/04. - Repeat UA ordered. - CT 05/02 without signs of CVA or other acute intracranial abnormality. - Likely 2/2 delirium from hospitalization, Haldol 2/5mg IV qHS PRN agitation. NATALIA: - Baseline Cr of ~1.1. - Cr 0.99->1.35 with poor PO hydration, today gave 500mL NSS bolus and NSS @60cc/hr. - Daily BMP to monitor, continuation oral and IV hydration. - Continue to monitor input/output for proper renal function and urine formation. Atrial fibrillation with Rapid Ventricular Response: - 05/04 patient was in AFib with RVR to 120s, given Lopressor 5mg IV x2 and resumed home dose Toprol XL with return to normal HR of 80s. - Was in AFib though with HR in the 80s for a total of about 12 hours; no history of in chart. Suspect patient may have had Paroxysmal AFib without symptoms which was exacerbated by her dehydration and sepsis while admitted and on cardiac monitoring. - Does not follow with a Conference Planning Manager, however was last seen in [address] Hanson for pacemaker placement. - Have started Eliquis 5mg BID here for AC. Patient already on metoprolol at home, this was being held due to soft BPs but have restarted. - Cardiology consulted and appreciate recs: pacemaker interrogated and this is single episode recorded of AFib; parameters adjusted. - Will need Cardiology follow up (Dr. Hanson) for her pacemaker and AFib following discharge. COPD: - Continue home O2 3LNC as needed qHS. - As patient had some relief in sputum production and chest congestion with neb, some improvement in wheezing, will repeat x1. - Due to persistent wheezing and Hx COPD have started Incruse Ellipta inhaler this admission. DM2: - A1c 6.6, goal of <7. - On Lantus 15u HS at home. - SSI initiated here with range 100 - 150, correction factor 25, INS:CHO 1:10. - Anticipate return to home regimen on discharge. Sinus dysfunction, s/p pacemaker: - No palpitations, no bradycardia on admission. - Pacemaker interrogated, please see Cardiology note. HTN: - Metoprolol succinate 100 mg PO AM, losartan 100 mg PO AM, HCTZ 25 mg PO AM, Nifedipine 60 mg PO AM [unconfirmed; per 09/2019 cardiac note]. - These medications were held on admission given normal systolic and borderline low diastolic BP. - Have restarted all home medications as above at this time. CAD: - ASA and Simvastatin 20 per home regimen. Code Status: Full Code DVT ppx: Eliquis 5mg BID FEN/GI: Regular with SSI; this is because patient was not tolerating DM2 diet and requesting macaroni and cheese. Given poor intake for several days will allow for patient's request. Dispo: Med/Surg (2) Acute UTI (urinary tract infection): Admission and Anticipated Discharge Date Admission Date: May 02, 2020 Supervising Physician Co-Signing Physician Notes Patient seen and examined with PGY-2 Dr. Lawler. Agree with history, exam findings, assessment and plan of care as outlined. In brief, Ms. Mcguire is an 84 year old female with history significant for afib, COPD, DM, and HTN admitted with gram negative bacteremia from a urinary source. Today, she is telling us that she lives with her (who is actually decreased). She has not had much of an appetite. She likes to eat mac and cheese and ice cream. No acute overnight events. 1. Gram neg bacteremia, urinary source. Urine growing ESBL. On ertapenem. Abx course to be completed on 05/11. Repeat blood cultures neg have been negative. 2. Delirium. No new infectious source has been identified. ?whether it is the hospital environment. 3. Leukocytosis. Stable. Continue to monitor for new infection. 4. Decreased appetite. Ok to liberalize diet. Discussed using an appetite stimulant, but patient is not interested. 5. afib. rate controlled now. Continue toprol XL. AC with Eliquis. Has pacer--parameters were adjusted this admission. 6. COPD. Started on inhalers/nebs this admission. 7. DM. A1C 6.6. Ok to be a bit more liberal with her glucose control given her age. Dispo: pending bed availability at SNF. Subjective Patient without acute events overnight. This morning she was alert and oriented, however this afternoon with some agitation, saying that "she needs to get back to her " who her son informed me has been passed for some time. Trying to pull off her clothes, and stating "if this is going to kill me let it kill me". This morning stated that her breathing was "pretty good". Denies abdominal pain, chest pain. Review of Systems Review of Systems: All systems reviewed & are unremarkable except as noted in Subjective Physical Exam Constitutional: well developed and well nourished Eyes: PERRL, conjunctivae normal, anicteric sclerae Neck: normal visual inspection Respiratory: normal respiratory effort bilateral wheezes on expiration, no crackles Cardiovascular: Rate/Rhythm: regular rate and regular rhythm Extremities: + edema (trace, bilateral LE) Gastrointestinal (Abdomen): normal bowel sounds, soft, nontender, no hepatosplenomegaly Skin: no rashes, warm and dry Psychiatric: AAOx3 this AM agitated, alert but disoriented in afternoon Results & Data Results & Data ([facility]) Vital Signs (Past 12 Hours) Vital Signs Temp Pulse Pulse Resp BP Pulse Ox 05/09/20 03:00 36.7 C 72 20 167/75 H 97 05/09/20 00:35 60 05/08/20 23:27 36.5 C 73 20 145/77 H 95 05/08/20 20:00 36.6 C 72 20 129/74 99 Resident Activity Tracking Resident Involvement: Resident Care Provided Care Provided: Adult Hospital Medicine
[2020-05-09 07:14] LABS: BUN Creatinine Ratio 12.1 (10-20); Calcium 9.3 mg/dl (8.5-10.1); Creatinine Clr Calc Pharmacy 30.7 ml/min; Est GFR (African American) 41.1; Est GFR (Non-African American) 35.5
[2020-05-09] MEDS: INSULIN ASPART 100 UNITS/ML 3 ML PEN SC SCH ×4 (08:03→20:54)
[2020-05-09] MEDS: METOPROLOL SUCC 50MG EXT REL TAB PO SCH (08:04)
[2020-05-09] MEDS: hydroCHLOROthiazide 25 MG TAB PO SCH (08:04)
[2020-05-09] MEDS: SIMVASTATIN 20 MG TAB PO SCH (08:04)
[2020-05-09] MEDS: APIXABAN 5 MG TABLET PO SCH ×2 (08:04→20:30)
[2020-05-09] MEDS: LOSARTAN POTASSIUM 50 MG TAB PO SCH (08:04)
[2020-05-09] MEDS: CALCIUM 600MG + VIT D 400 IU TAB PO SCH (08:04)
[2020-05-09] MEDS: DOCUSATE SODIUM 100 MG CAP PO SCH (08:05)
[2020-05-09] MEDS: UMECLIDINIUM BROMIDE 62.5MCG/BLISTER 7 PUFFS/INHALER INH SCH (08:05)
[2020-05-09] MEDS: FLUTICASONE/VILANTEROL 200/25MCG 14 PUFFS/INHALER INH SCH (08:05)
[2020-05-09] MEDS: NIFEdipine EXTENDED REL 30 MG TABCR PO SCH (08:09)
[2020-05-09] MEDS: CEROVITE ADV FORMULA TAB PO SCH ×2 (08:09→16:57)
[2020-05-09] MEDS: ERTAPENEM SODIUM 1,000 MG in SODIUM CHLORIDE 0.9% 50 ML IV SCH (10:21)
[2020-05-09] MEDS ORDERED: SODIUM CHLORIDE 0.9% 1000ML 500 ML IV ONE (13:01)
[2020-05-09] MEDS: SODIUM CHLORIDE 0.9% 500 ML IV SCH (13:44)
[2020-05-09] MEDS ORDERED: HALOPERIDOL LACTATE 5 MG/ML 1 ML VIAL IV STA (16:20)
[2020-05-09] MEDS: PSYLLIUM 58.6% POWDER PACKET PO SCH (20:29)
[2020-05-09] MEDS ORDERED: HALOPERIDOL LACTATE 5 MG/ML 1 ML VIAL IV PRN (21:00)
[2020-05-09] MEDS: SODIUM CHLORIDE 0.9% 1000ML 1,000 ML IV SCH (22:07)
[2020-05-10 06:01] LABS: Basophils # (auto) 0.03 K/uL (0-0.2); Basophils % (auto) 0.2 %; Eosinophils # (auto) 0.11 K/uL (0-0.5); Eosinophils % (auto) 0.9 %; Hematocrit (blood only) 29.7 % (37-47); Hemoglobin 9.8 g/dL (12.0-16.0); Immature Granulocytes # (auto) 0.05 K/uL (0.00-0.02); Immature Granulocytes % (auto) 0.4 %; Lymphocytes # (auto) 1.33 K/uL (1.2-3.4); Lymphocytes % (auto) 10.3 %; Mean Corpuscular Hemoglobin 30.5 pg (25-34); Mean Corpuscular Volume 92.5 fL (80-100); Mean Platelet Volume 9.1 fL (7.4-10.4); Monocytes # (auto) 1.24 K/uL (0.11-0.59); Monocytes % (auto) 9.6 %; Neutrophils # (auto) 10.13 K/uL (1.4-6.5); Neutrophils % (auto) 78.6 %; Platelet Count 400 K/uL (130-400); RDW Coefficient of Variation 12.6 % (11.5-14.5); RDW Standard Deviation 42.8 fL (36.4-46.3); Red Blood Count 3.21 M/uL (4.2-5.4); White Blood Count 12.89 K/uL (4.8-10.8)
[2020-05-10 06:38] LABS: BUN Creatinine Ratio 12.3 (10-20); Calcium 9.5 mg/dl (8.5-10.1); Creatinine Clr Calc Pharmacy 32.4 ml/min; Est GFR (African American) 43.8; Est GFR (Non-African American) 37.8; Potassium 3.3 mmol/L (3.5-5.1)
--- NOTE | 2020-05-10 06:52 | Hospitalist Progress Note ---
Date of Service May 10, 2020 Assessment & Plan (1) Bacteremia due to Gram-negative bacteria: 84 yo F with hx CKD, sinus node dysfunction s/p pacemaker, DM2 on insulin therapy, candidiasis of mouth and esophagus, COPD, HTN admitted with sepsis and bacteremia 2/2 ESBL E coli UTI. Bacteremia and sepsis secondary to UTI: - WBC 13.78-> 12.11 -> 12.9 on ertapenem IV. - UA this admission showing turbid urine, nitrites, 3+ LE, 4+ bacteria, >30 WBC. - Broad spectrum coverage with Zosyn initiated on admission. - 05/02 grew ESBL E. coli in BCx x2 and UCx; ertapenem started 05/04. - Restarted IVF for NATALIA as below. - Repeat BCx ordered and negative to date. - Case Management aware and will be discharged to SNF with peripheral access for duration of Abx due to elevated WBC with . - CXR on 05/02 without findings suggestive of pneumonia. CXR 05/05 with LLL subtle airspace opacities. CXR 05/08 with improving left basilar airspace opacities with residual indistinctness of the left phrenic angle, atelectasis versus pneumonia. - Given persistent leukocytosis despite ertapenem, have started imipenem/cilastatin to cover for Pseudomonas. - Continue to monitor respiratory status, fever checks, CBC AM while admitt ed. - This admission I educated patient on proper urinary hygiene, i.e. wiping front to back with urination to avoid fecal bacteria transmission. - Awaiting placement to SNF vs. personal skilled nursing on Monday pending improvement. Metabolic encephalopathy: - With waxing and waning level of alertness, differentials include metabolic derangement, delirium 2/2 hospitalization in the elderly, infection. - VBG normal. Admitted with bacteremia sensitive to ertepenem, on Abx treatment since 05/04. - Repeat UA ordered. - CT 05/02 without signs of CVA or other acute intracranial abnormality. - Likely 2/2 delirium from hospitalization, Haldol 2.5mg IV qHS PRN agitation. NATALIA: - Baseline Cr of ~1.1. - Cr 0.99->1.35-> 1.28with poor PO hydration, has been receiving NSS @ 80mL/hr for 1 day. - Daily BMP to monitor, continuation oral and IV hydration. - Continue to monitor input/output for proper renal function and urine formation. Atrial fibrillation with Rapid Ventricular Response: - 05/04 patient was in AFib with RVR to 120s, given Lopressor 5mg IV x2 and resumed home dose Toprol XL with return to normal HR of 80s. - Was in AFib though with HR in the 80s for a total of about 12 hours; no history of in chart. Suspect patient may have had Paroxysmal AFib without symptoms which was exacerbated by her dehydration and sepsis while admitted and on cardiac monitoring. - Does not follow with a Garnett Mechanic, however was last seen in [address] Hanson for pacemaker placement. - Have started Eliquis 5mg BID here for AC. Patient already on metoprolol at home, this was being held due to soft BPs but have restarted. - Cardiology consulted and appreciate recs: pacemaker interrogated and this is single episode recorded of AFib; parameters adjusted. - Will need Cardiology follow up (Dr. Hanson) for her pacemaker and AFib following discharge. COPD: - Continue home O2 3LNC as needed qHS. - As patient had some relief in sputum production and chest congestion with neb, some improvement in wheezing, will repeat x1. - Due to persistent wheezing and Hx COPD have started Incruse Ellipta inhaler this admission. DM2: - A1c 6.6, goal of <7. - On Lantus 15u HS at home. - SSI initiated here with range 100 - 150, correction factor 25, INS:CHO 1:10. - Anticipate return to home regimen on discharge. Sinus dysfunction, s/p pacemaker: - No palpitations, no bradycardia on admission. - Pacemaker interrogated, please see Cardiology note. HTN: - Metoprolol succinate 100 mg PO AM, losartan 100 mg PO AM, HCTZ 25 mg PO AM, Nifedipine 60 mg PO AM [unconfirmed; per 09/2019 cardiac note]. - These medications were held on admission given normal systolic and borderline low diastolic BP. - Have restarted all home medications as above at this time. CAD: - ASA and Simvastatin 20 per home regimen. Code Status: Full Code DVT ppx: Eliquis 5mg BID FEN/GI: Regular with SSI; this is because patient was not tolerating DM2 diet and requesting macaroni and cheese. Given poor intake for several days will allow for patient's request. Dispo: Med/Surg (2) Acute UTI (urinary tract infection): Admission and Anticipated Discharge Date Admission Date: May 02, 2020 Supervising Physician Co-Signing Physician Notes Patient seen and examined with PGY-2 Dr. Lawler. Agree with history, exam findings, assessment and plan of care as outlined. In brief, Ms. Mcguire is an 84 year old female with history significant for afib, COPD, DM, and HTN admitted with ESBL bacteremia from a urinary source. No acute overnight events. Feeling improved today. She is able to tell us the names of her children. She is eating and drinking. Likes the Boost drink she received this morning. 1. ESBL bacteremia, urinary source. Previously on ertapenem, but becoming more confused at times. ?delirium from hospital stay vs new hospital acquired infection since her white count bumped up a bit and has remained mildly elevated. Broadened antibiotics to imipenem-cilastatin for pseudomonal coverage. Repeat blood cultures have been negative. 2. Delirium. see above. 3. Leukocytosis. Stable, but remains elevated. Continue to monitor for new infection. 4. Decreased appetite. Improving. Continue with liberalize diet diet. Appreciate nutrition input. 5. afib. rate controlled now. Continue toprol XL. AC with Eliquis. Has pacer--parameters were adjusted this admission. 6. COPD. Started on inhalers/nebs this admission. 7. DM. A1C 6.6. Ok to be a bit more liberal with her glucose control given her age. Dispo: pending bed availability at SNF. Subjective Patient without acute events overnight. Today has been more calm and cooperative, and this morning was fairly alert and oriented. During our conversation at first she was talking about calling "her mom Jolly", then she clarified that Jolly is her daughter. Feels well with regard to breathing today, no subjective fevers or chills, no constipation or diarrhea, no pain or burning with urination, no abdominal pain, nausea, vomiting. Says that "her breakfast was toast and eggs, and it was good". Review of Systems Review of Systems: All systems reviewed & are unremarkable except as noted in Subjective Physical Exam Constitutional: well developed and well nourished Eyes: PERRL, conjunctivae normal, anicteric sclerae Neck: normal visual inspection Respiratory: normal respiratory effort bilateral wheezes on expiration, no crackles Cardiovascular: Rate/Rhythm: regular rate and regular rhythm Extremities: + edema (trace, bilateral LE) Gastrointestinal (Abdomen): normal bowel sounds, soft, nontender, no hepatosplenomegaly Skin: no rashes, warm and dry Psychiatric: A+Ox3, euthymic affect Results & Data Results & Data ([facility]) Vital Signs (Past 12 Hours) Vital Signs Temp Pulse Pulse Resp BP Pulse Ox 05/10/20 04:29 36.5 C 80 20 165/77 H 98 05/09/20 23:10 82 05/09/20 23:00 36.6 C 79 20 128/69 96 05/09/20 19:00 36.8 C 80 20 131/74 97 Resident Activity Tracking Resident Involvement: Resident Care Provided Care Provided: Adult Hospital Medicine
[2020-05-10] MEDS: SODIUM CHLORIDE 0.9% 500 ML IV SCH (07:19)
[2020-05-10] MEDS: APIXABAN 5 MG TABLET PO SCH ×2 (08:02→20:45)
[2020-05-10] MEDS: hydroCHLOROthiazide 25 MG TAB PO SCH (08:02)
[2020-05-10] MEDS: CEROVITE ADV FORMULA TAB PO SCH ×2 (08:02→17:41)
[2020-05-10] MEDS: INSULIN ASPART 100 UNITS/ML 3 ML PEN SC SCH ×4 (08:02→21:07)
[2020-05-10] MEDS: CALCIUM 600MG + VIT D 400 IU TAB PO SCH (08:02)
[2020-05-10] MEDS: SIMVASTATIN 20 MG TAB PO SCH (08:02)
[2020-05-10] MEDS: METOPROLOL SUCC 50MG EXT REL TAB PO SCH (08:02)
[2020-05-10] MEDS: LOSARTAN POTASSIUM 50 MG TAB PO SCH (08:03)
[2020-05-10] MEDS: UMECLIDINIUM BROMIDE 62.5MCG/BLISTER 7 PUFFS/INHALER INH SCH (08:03)
[2020-05-10] MEDS: FLUTICASONE/VILANTEROL 200/25MCG 14 PUFFS/INHALER INH SCH (08:03)
[2020-05-10] MEDS: NIFEdipine EXTENDED REL 30 MG TABCR PO SCH (08:05)
[2020-05-10] MEDS: DOCUSATE SODIUM 100 MG CAP PO SCH (08:06)
[2020-05-10] MEDS: ERTAPENEM SODIUM 1,000 MG in SODIUM CHLORIDE 0.9% 50 ML IV SCH (10:01)
[2020-05-10] MEDS ORDERED: IMIPENEM/CILASTATIN CONSULT ACTIVE PRN (11:31)
[2020-05-10] MEDS: IMIPENEM/CILASTATIN SODIUM 300 MG in DEXTROSE 5% 100 ML IV SCH ×3 (12:07→23:53)
[2020-05-10] MEDS: SODIUM CHLORIDE 0.9% 1000ML 1,000 ML IV SCH (14:41)
[2020-05-10] MEDS: PSYLLIUM 58.6% POWDER PACKET PO SCH (20:44)
[2020-05-11] MEDS: IMIPENEM/CILASTATIN SODIUM 300 MG in DEXTROSE 5% 100 ML IV SCH ×2 (05:48→12:31)
[2020-05-11 06:33] LABS: Basophils # (auto) 0.02 K/uL (0-0.2); Basophils % (auto) 0.2 %; Eosinophils # (auto) 0.25 K/uL (0-0.5); Eosinophils % (auto) 2.3 %; Hematocrit (blood only) 29.1 % (37-47); Hemoglobin 9.9 g/dL (12.0-16.0); Immature Granulocytes # (auto) 0.06 K/uL (0.00-0.02); Immature Granulocytes % (auto) 0.6 %; Lymphocytes # (auto) 1.35 K/uL (1.2-3.4); Lymphocytes % (auto) 12.5 %; Mean Corpuscular Volume 91.2 fL (80-100); Monocytes # (auto) 1.17 K/uL (0.11-0.59); Monocytes % (auto) 10.8 %; Neutrophils # (auto) 7.94 K/uL (1.4-6.5); Neutrophils % (auto) 73.6 %; Platelet Count 416 K/uL (130-400); RDW Coefficient of Variation 12.7 % (11.5-14.5); RDW Standard Deviation 42.4 fL (36.4-46.3); Red Blood Count 3.19 M/uL (4.2-5.4); White Blood Count 10.79 K/uL (4.8-10.8)
[2020-05-11 07:06] LABS: Calcium 9.8 mg/dl (8.5-10.1); Est GFR (African American) 46.5; Est GFR (Non-African American) 40.1
[2020-05-11] MEDS: SODIUM CHLORIDE 0.9% 1000ML 1,000 ML IV SCH (08:35)
[2020-05-11] MEDS: CALCIUM 600MG + VIT D 400 IU TAB PO SCH (08:36)
[2020-05-11] MEDS: METOPROLOL SUCC 50MG EXT REL TAB PO SCH (08:36)
[2020-05-11] MEDS: FLUTICASONE/VILANTEROL 200/25MCG 14 PUFFS/INHALER INH SCH (08:36)
[2020-05-11] MEDS: CEROVITE ADV FORMULA TAB PO SCH ×2 (08:36→17:58)
[2020-05-11] MEDS: SIMVASTATIN 20 MG TAB PO SCH (08:37)
[2020-05-11] MEDS: hydroCHLOROthiazide 25 MG TAB PO SCH (08:37)
[2020-05-11] MEDS: LOSARTAN POTASSIUM 50 MG TAB PO SCH (08:37)
[2020-05-11] MEDS: APIXABAN 5 MG TABLET PO SCH ×2 (08:38→20:30)
[2020-05-11] MEDS: UMECLIDINIUM BROMIDE 62.5MCG/BLISTER 7 PUFFS/INHALER INH SCH (08:38)
[2020-05-11] MEDS: DOCUSATE SODIUM 100 MG CAP PO SCH (08:43)
[2020-05-11] MEDS ORDERED: POTASSIUM CHLORIDE 20 MEQ TABCR PO STA (09:22)
[2020-05-11] MEDS: NIFEdipine EXTENDED REL 30 MG TABCR PO SCH (10:38)
[2020-05-11] MEDS: INSULIN ASPART 100 UNITS/ML 3 ML PEN SC SCH ×4 (10:50→20:45)
[2020-05-11] MEDS: IPRATROPIUM BROMIDE NEB SOLN 0.02% 2.5 ML VIAL INH PRN (11:11)
[2020-05-11] MEDS: LEVALBUTEROL 1.25MG/0.5ML NEB INH PRN (11:11)
[2020-05-11 11:31] LABS: Appearance Urine Clear (Clear); Bilirubin Urine Negative (Negative); Blood Urine Negative (Negative); Color Urine Yellow; Glucose Urine UA Negative (Negative); Ketones Urine Trace (Negative); Leukocyte Esterase Urine Negative (Negative); Nitrite Urine Negative (Negative); Protein Urine Negative (Negative); Specific Gravity Urine 1.012 (1.000-1.030); Urobilinogen Urine Negative (Negative)
--- NOTE | 2020-05-11 15:24 | Hospitalist Progress Note ---
Date of Service May 11, 2020 Assessment & Plan (1) Bacteremia due to Gram-negative bacteria: 84 yo F with hx CKD, sinus node dysfunction s/p pacemaker, DM2 on insulin therapy, candidiasis of mouth and esophagus, COPD, HTN admitted with sepsis and bacteremia 2/2 ESBL E coli UTI. Bacteremia and sepsis secondary to UTI: - WBC 10.79 downtrending restarted ertapenem IV - UA this admission showing turbid urine, nitrites, 3+ LE, 4+ bacteria, >30 WBC. - Broad spectrum coverage with Zosyn initiated on admission, was changed to ertapenem, then imipenem w/ cilastatin (to cover pseudomonas) - 05/02 grew ESBL E. coli in BCx x2 and UCx; ertapenem started 05/04 plan for 14 day course. - continue IVF for NATALIA as below. - Repeat BCx ordered and negative to date. - Case Management aware and will be discharged to SNF with peripheral access for duration of Abx - CXR on 05/02 without findings suggestive of pneumonia. CXR 05/05 with LLL subtle airspace opacities. CXR 05/08 with improving left basilar airspace opacities with residual indistinctness of the left phrenic angle, atelectasis versus pneumonia. - Continue to monitor respiratory status, fever checks, CBC AM while admitted. - This admission patient was educated on proper urinary hygiene. - Awaiting placement to SNF vs. personal residential. Metabolic encephalopathy: - With waxing and waning level of alertness, differentials include metabolic derangement, delirium 2/2 hospitalization in the elderly, infection. - VBG normal. Admitted with bacteremia sensitive to ertepenem, on Abx treatment since 05/04. - CT 05/02 without signs of CVA or other acute intracranial abnormality. - Likely 2/2 delirium from hospitalization. NATALIA: - Baseline Cr of ~1.1. - Cr 0.99->1.35-> 1.28 ->1.22 with poor PO hydration, has been receiving NSS @ 80mL/hr - Daily BMP to monitor, continuation oral and IV hydration. - Continue to monitor input/output for proper renal function and urine formation. Atrial fibrillation with Rapid Ventricular Response: - 05/04 patient was in AFib with RVR to 120s, given Lopressor 5mg IV x2 and resumed home dose Toprol XL with return to normal HR of 80s. - Was in AFib though with HR in the 80s for a total of about 12 hours; no history of in chart. Suspect patient may have had Paroxysmal AFib without symptoms which was exacerbated by her dehydration and sepsis while admitted and on cardiac monitoring. - Does not follow with a Senior Controls Analyst, however was last seen [place] [address] Hanson for pacemaker placement. - Have started Eliquis 5mg BID here for AC. Patient already on metoprolol at home, this was being held due to soft BPs but have restarted. - Cardiology consulted and appreciate recs: pacemaker interrogated and this is single episode recorded of AFib; parameters adjusted. - Will need Cardiology follow up (Dr. Hanson) for her pacemaker and AFib following discharge. COPD: - Continue home O2 3LNC as needed qHS. - As patient had some relief in sputum production and chest congestion with neb, some improvement in wheezing, will repeat x1. - Due to persistent wheezing and Hx COPD have started Incruse Ellipta inhaler this admission. DM2: - A1c 6.6, goal of <7. - On Lantus 15u HS at home. - SSI initiated here with range 100 - 150, correction factor 25, INS:CHO 1:10. - Anticipate return to home regimen on discharge. Sinus dysfunction, s/p pacemaker: - No palpitations, no bradycardia on admission. - Pacemaker interrogated, please see Cardiology note. HTN: - Metoprolol succinate 100 mg PO AM, losartan 100 mg PO AM, HCTZ 25 mg PO AM, Nifedipine 60 mg PO AM [unconfirmed; per 09/2019 cardiac note]. - These medications were held on admission given normal systolic and borderline low diastolic BP. - Have restarted all home medications as above at this time. CAD: - ASA and Simvastatin 20 per home regimen. Code Status: Full Code DVT ppx: Eliquis 5mg BID FEN/GI: Regular with SSI; this is because patient was not tolerating DM2 diet and requesting macaroni and cheese. Given poor intake for several days will allow for patient's request. Dispo: Med/Surg (2) Acute UTI (urinary tract infection): Admission and Anticipated Discharge Date Admission Date: May 02, 2020 Supervising Physician Co-Signing Physician Notes I personally examined the patient and verified all mackey points of history and exam, discussed case, and agree with decision making with Dr Garcias. no meaningful HPI or ROS obtainable. case d/w son at bedside, answered all questions to the best of my ability and to his satisfaction. vitals noted nad heent nc at mmm breathing unlabored no accessory muscles good effort skin no rashes no pallor or icterus ESBL UTI/Bacteremia/sepsis - seems stable to overall improved - just delirium causing worsening of clinical picture - likely from being in hospital so many days + age + infection -- but clinically do not suspect worsening or new infection - OK to resume ertapenem and follow closely. for placement @ [facility] once possible. otherwise as above Subjective Angy Mcguire stated that she was doing, "pretty good". I was having difficulty understanding her for the rest of my conversation with her this morning. She denied any nausea or vomiting. She was oriented to name. Review of Systems Review of Systems: unable to obtain due to confusion Physical Exam Constitutional: well developed and well nourished; no acute distress ENMT: external ear and nose normal, oropharynx normal Neck: normal visual inspection Respiratory: slight expiratory wheeze bilaterally good air movement Cardiovascular: RRR, no murmur, no edema 2+ pitting edema bilaterally Gastrointestinal (Abdomen): normal bowel sounds, soft, nontender, no hepatosplenomegaly Skin: no rashes, warm and dry Neurologic: Speech / Cognition: + abnormal speech (somewhat garbled speech this morning) Psychiatric: Orientation: alert Affect: euthymic affect Results & Data Results & Data ([facility]) Vital Signs (Past 12 Hours) Vital Signs Temp Pulse Resp BP BP Pulse Ox 05/11/20 15:09 37.1 C 80 18 121/65 90 05/11/20 11:16 75 20 98 05/11/20 11:10 36.9 C 76 18 157/88 H 98 05/11/20 07:27 36.9 C 77 18 151/77 H 99 05/11/20 03:55 36.6 C 72 18 126/66 100 CBC Results Results Complete Blood Count Results: RBC 3.19 M/uL (4.2-5.4) L 05/11/20 WBC 10.79 K/uL (4.8-10.8) 05/11/20 Hgb 9.9 g/dL (12.0-16.0) L 05/11/20 Hct 29.1 % (37-47) L 05/11/20 Plt Count 416 K/uL (130-400) H 05/11/20 Chemistry (BMP) Results BMP Results: Sodium 138 mmol/L (136-145) 05/11/20 Potassium 3.2 mmol/L (3.5-5.1) L 05/11/20 Chloride 103 mmol/L (98-107) 05/11/20 BUN 16 mg/dl (7-18) 05/11/20 Creatinine 1.22 mg/dl (0.6-1.2) H 05/11/20 Glucose 119 mg/dl (70-99) H 05/11/20 Resident Activity Tracking Resident Involvement: Resident Care Provided Care Provided: Adult Hospital Medicine
[2020-05-11] MEDS: ERTAPENEM SODIUM 1,000 MG in SODIUM CHLORIDE 0.9% 50 ML IV SCH (18:01)
--- NOTE | 2020-05-11 19:23 | Billing Data ---
Date of Service May 11, 2020 Coding Level of Care Code 36367 Subseq Hosp Care Lvl 3
[2020-05-11] MEDS: PSYLLIUM 58.6% POWDER PACKET PO SCH (20:30)
[2020-05-11] MEDS ORDERED: Nursing to Pharmacy Communication SCH (22:00)
[2020-05-12] MEDS: SODIUM CHLORIDE 0.9% 1000ML 1,000 ML IV SCH ×2 (01:38→17:32)
[2020-05-12 06:05] LABS: Basophils # (auto) 0.02 K/uL (0-0.2); Basophils % (auto) 0.2 %; Eosinophils # (auto) 0.29 K/uL (0-0.5); Hematocrit (blood only) 27.8 % (37-47); Hemoglobin 9.2 g/dL (12.0-16.0); Immature Granulocytes # (auto) 0.03 K/uL (0.00-0.02); Immature Granulocytes % (auto) 0.3 %; Lymphocytes # (auto) 1.53 K/uL (1.2-3.4); Lymphocytes % (auto) 15.8 %; Mean Corpuscular Hemoglobin 30.6 pg (25-34); Mean Corpuscular Hgb Conc 33.1 g/dL (32-36); Mean Corpuscular Volume 92.4 fL (80-100); Mean Platelet Volume 8.8 fL (7.4-10.4); Monocytes # (auto) 0.96 K/uL (0.11-0.59); Monocytes % (auto) 9.9 %; Neutrophils # (auto) 6.83 K/uL (1.4-6.5); Neutrophils % (auto) 70.8 %; Platelet Count 419 K/uL (130-400); RDW Coefficient of Variation 12.6 % (11.5-14.5); Red Blood Count 3.01 M/uL (4.2-5.4); White Blood Count 9.66 K/uL (4.8-10.8)
[2020-05-12 06:35] LABS: BUN Creatinine Ratio 11.5 (10-20); Calcium 9.6 mg/dl (8.5-10.1); Creatinine Clr Calc Pharmacy 38.8 ml/min; Est GFR (African American) 54.4; Potassium 3.6 mmol/L (3.5-5.1)
[2020-05-12] MEDS: LEVALBUTEROL 1.25MG/0.5ML NEB INH PRN (08:36)
[2020-05-12] MEDS: IPRATROPIUM BROMIDE NEB SOLN 0.02% 2.5 ML VIAL INH PRN (08:36)
[2020-05-12] MEDS: CEROVITE ADV FORMULA TAB PO SCH ×2 (08:38→17:32)
[2020-05-12] MEDS: UMECLIDINIUM BROMIDE 62.5MCG/BLISTER 7 PUFFS/INHALER INH SCH (08:38)
[2020-05-12] MEDS: FLUTICASONE/VILANTEROL 200/25MCG 14 PUFFS/INHALER INH SCH (08:38)
[2020-05-12] MEDS: APIXABAN 5 MG TABLET PO SCH ×2 (08:38→21:09)
[2020-05-12] MEDS: hydroCHLOROthiazide 25 MG TAB PO SCH (08:39)
[2020-05-12] MEDS: SIMVASTATIN 20 MG TAB PO SCH (08:39)
[2020-05-12] MEDS: CALCIUM 600MG + VIT D 400 IU TAB PO SCH (08:39)
[2020-05-12] MEDS: METOPROLOL SUCC 50MG EXT REL TAB PO SCH (08:39)
[2020-05-12] MEDS: NIFEdipine EXTENDED REL 30 MG TABCR PO SCH (08:40)
[2020-05-12] MEDS: LOSARTAN POTASSIUM 50 MG TAB PO SCH (08:40)
[2020-05-12] MEDS: DOCUSATE SODIUM 100 MG CAP PO SCH (08:44)
[2020-05-12] MEDS: INSULIN ASPART 100 UNITS/ML 3 ML PEN SC SCH ×4 (09:30→21:20)
[2020-05-12] MEDS: ERTAPENEM SODIUM 1,000 MG in SODIUM CHLORIDE 0.9% 50 ML IV SCH (17:37)
--- NOTE | 2020-05-12 19:06 | Hospitalist Progress Note ---
Date of Service May 12, 2020 Assessment & Plan (1) Bacteremia due to Gram-negative bacteria: 84 yo F with hx CKD, sinus node dysfunction s/p pacemaker, DM2 on insulin therapy, candidiasis of mouth and esophagus, COPD, HTN admitted with sepsis and bacteremia 2/2 ESBL E coli UTI. Bacteremia secondary to UTI, clinically improving, afebrile - WBC 9.66 downtrending on ertapenem IV - UA this admission showing turbid urine, nitrites, 3+ LE, 4+ bacteria, >30 WBC. - Broad spectrum coverage with Zosyn initiated on admission, was changed to ertapenem, then imipenem w/ cilastatin (to cover pseudomonas) now back to Ertapenem - 05/02 grew ESBL E. coli in BCx x2 and UCx; ertapenem started 05/04 plan for 14 day course. - continue IVF for NATALIA as below. - Repeat BCx ordered and negative to date. - Case Management aware and will be discharged to SNF with peripheral access for duration of Abx - CXR on 05/02 without findings suggestive of pneumonia. CXR 05/05 with LLL subtle airspace opacities. CXR 05/08 with improving left basilar airspace opacities with residual indistinctness of the left phrenic angle, atelectasis versus pneumonia. - Continue to monitor respiratory status, fever checks, CBC AM while admitt ed. - This admission patient was educated on proper urinary hygiene. - Awaiting placement to SNF vs. [facility]. Metabolic encephalopathy: - With waxing and waning level of alertness, differentials include metabolic derangement, delirium 2/2 hospitalization in the elderly, infection. - VBG normal. Admitted with bacteremia sensitive to ertepenem, on Abx treatment since 05/04. - CT 05/02 without signs of CVA or other acute intracranial abnormality. - Likely 2/2 delirium from hospitalization. NATALIA: - Baseline Cr of ~1.1. - Cr 0.99->1.35-> 1.28 ->1.22 with poor PO hydration, has been receiving NSS @ 80mL/hr - Daily BMP to monitor, continuation oral and IV hydration. - Continue to monitor input/output for proper renal function and urine formation. Atrial fibrillation with Rapid Ventricular Response: - 05/04 patient was in AFib with RVR to 120s, given Lopressor 5mg IV x2 and resumed home dose Toprol XL with return to normal HR of 80s. - Was in AFib though with HR in the 80s for a total of about 12 hours; no history of in chart. Suspect patient may have had Paroxysmal AFib without symptoms which was exacerbated by her dehydration and sepsis while admitted and on cardiac monitoring. - Does not follow with a Oscillograph Technician, however was last seen [place] [address] Hanson for pacemaker placement. - Have started Eliquis 5mg BID here for AC. Patient already on metoprolol at home, this was being held due to soft BPs but have restarted. - Cardiology consulted and appreciate recs: pacemaker interrogated and this is single episode recorded of AFib; parameters adjusted. - Will need Cardiology follow up (Dr. Hanson) for her pacemaker and A. Fib following discharge. COPD: - Continue home O2 3LNC as needed qHS. - As patient had some relief in sputum production and chest congestion with neb, some improvement in wheezing, will repeat x1. - Due to persistent wheezing and Hx. COPD have started Incruse Ellipta inhaler this admission. DM2: - A1c 6.6, goal of <7. - On Lantus 15u HS at home. - SSI initiated here with range 100 - 150, correction factor 25, INS:CHO 1:10. - Anticipate return to home regimen on discharge. Sinus dysfunction, s/p pacemaker: - No palpitations, no bradycardia on admission. - Pacemaker interrogated, please see Cardiology note. HTN: - Metoprolol succinate 100 mg PO AM, losartan 100 mg PO AM, HCTZ 25 mg PO AM, Nifedipine 60 mg PO AM [unconfirmed; per 09/2019 cardiac note]. - These medications were held on admission given normal systolic and borderline low diastolic BP. - Have restarted all home medications as above at this time. CAD: - ASA and Simvastatin 20 per home regimen. Code Status: Full Code DVT ppx: Eliquis 5mg BID FEN/GI: Regular with SSI; this is because patient was not tolerating DM2 diet and requesting macaroni and cheese. Given poor intake for several days will allow for patient's request. Dispo: Med/Surg (2) Acute UTI (urinary tract infection): Admission and Anticipated Discharge Date Admission Date: May 02, 2020 Supervising Physician Co-Signing Physician Notes I personally examined the patient and verified all mackey points of history and exam, discussed case, and agree with decision making with Dr Garcias. no meaningful HPI or ROS obtainable. still waiting on placement vitals noted nad heent nc at mmm breathing unlabored no accessory muscles good effort skin no rashes no pallor or icterus ESBL UTI/Bacteremia/sepsis - stable to overall improved - just delirium causing worsening of clinical picture - likely from being in hospital so many days + age + infection -- but clinically do not suspect worsening or new infection -doing well on ertapenem - to complete 14 days abx for gm neg bacteremia in frail elderly pt. for SNF once able otherwise as above Subjective Feeling "pretty good". She denied nausea and vomiting pain. She again was having difficulty with recalling the date or her location. Son updated 05/12 over the phone, would like to be update again tomorrow and with any major changes. Review of Systems Review of Systems: Unobtainable due to cognitive status Physical Exam Constitutional: well developed and well nourished - pleasant Neck: normal visual inspection Respiratory: normal respiratory effort, lungs clear to auscultation Cardiovascular: RRR, no murmur, no edema Gastrointestinal (Abdomen): normal bowel sounds, soft, nontender, no hepatosplenomegaly Skin: no rashes, warm and dry Results & Data Results & Data ([facility]) Vital Signs (Past 12 Hours) Vital Signs Temp Pulse Resp BP Pulse Ox 05/12/20 15:47 36.6 C 73 20 148/73 H 92 05/12/20 11:03 36.8 C 72 20 153/89 H 95 05/12/20 08:36 78 18 97 05/12/20 07:31 37.1 C 85 20 127/68 100 CBC Results Results Complete Blood Count Results: RBC 3.01 M/uL (4.2-5.4) L 05/12/20 WBC 9.66 K/uL (4.8-10.8) 05/12/20 Hgb 9.2 g/dL (12.0-16.0) L 05/12/20 Hct 27.8 % (37-47) L 05/12/20 Plt Count 419 K/uL (130-400) H 05/12/20 Chemistry (BMP) Results BMP Results: Sodium 142 mmol/L (136-145) 05/12/20 Potassium 3.6 mmol/L (3.5-5.1) 05/12/20 Chloride 105 mmol/L (98-107) 05/12/20 BUN 12 mg/dl (7-18) 05/12/20 Creatinine 1.07 mg/dl (0.6-1.2) 05/12/20 Glucose 94 mg/dl (70-99) 05/12/20 Resident Activity Tracking Resident Involvement: Resident Care Provided Care Provided: Adult [facility] Medicine
--- NOTE | 2020-05-12 19:52 | Billing Data ---
Date of Service May 12, 2020 Coding Level of Care Code 20285 Subseq Hosp Care Lvl 2
[2020-05-12] MEDS: PSYLLIUM 58.6% POWDER PACKET PO SCH (21:08)
[2020-05-13 06:45] LABS: Basophils # (auto) 0.02 K/uL (0-0.2); Basophils % (auto) 0.2 %; Eosinophils # (auto) 0.29 K/uL (0-0.5); Eosinophils % (auto) 3.3 %; Hematocrit (blood only) 31.1 % (37-47); Hemoglobin 10.2 g/dL (12.0-16.0); Immature Granulocytes # (auto) 0.04 K/uL (0.00-0.02); Immature Granulocytes % (auto) 0.5 %; Lymphocytes # (auto) 1.33 K/uL (1.2-3.4); Lymphocytes % (auto) 15.3 %; Mean Corpuscular Hemoglobin 30.5 pg (25-34); Mean Corpuscular Hgb Conc 32.8 g/dL (32-36); Mean Corpuscular Volume 93.1 fL (80-100); Monocytes # (auto) 0.86 K/uL (0.11-0.59); Monocytes % (auto) 9.9 %; Neutrophils # (auto) 6.17 K/uL (1.4-6.5); Neutrophils % (auto) 70.8 %; Platelet Count 367 K/uL (130-400); RDW Coefficient of Variation 12.6 % (11.5-14.5); RDW Standard Deviation 42.8 fL (36.4-46.3); Red Blood Count 3.34 M/uL (4.2-5.4); White Blood Count 8.71 K/uL (4.8-10.8)
[2020-05-13 07:16] LABS: BUN Creatinine Ratio 11.9 (10-20); Calcium 9.7 mg/dl (8.5-10.1); Creatinine Clr Calc Pharmacy 45.9 ml/min; Est GFR (African American) 66.2; Est GFR (Non-African American) 57.1
[2020-05-13] MEDS: UMECLIDINIUM BROMIDE 62.5MCG/BLISTER 7 PUFFS/INHALER INH SCH (07:46)
[2020-05-13] MEDS: METOPROLOL SUCC 50MG EXT REL TAB PO SCH (07:47)
[2020-05-13] MEDS: FLUTICASONE/VILANTEROL 200/25MCG 14 PUFFS/INHALER INH SCH (07:47)
[2020-05-13] MEDS: CALCIUM 600MG + VIT D 400 IU TAB PO SCH (07:47)
[2020-05-13] MEDS: LOSARTAN POTASSIUM 50 MG TAB PO SCH (07:47)
[2020-05-13] MEDS: APIXABAN 5 MG TABLET PO SCH ×2 (07:48→21:00)
[2020-05-13] MEDS: NIFEdipine EXTENDED REL 30 MG TABCR PO SCH (07:48)
[2020-05-13] MEDS: SIMVASTATIN 20 MG TAB PO SCH (07:48)
[2020-05-13] MEDS: hydroCHLOROthiazide 25 MG TAB PO SCH (07:49)
[2020-05-13] MEDS: CEROVITE ADV FORMULA TAB PO SCH ×2 (07:49→16:46)
[2020-05-13] MEDS: DOCUSATE SODIUM 100 MG CAP PO SCH (07:55)
[2020-05-13] MEDS: INSULIN ASPART 100 UNITS/ML 3 ML PEN SC SCH ×4 (09:17→21:09)
--- NOTE | 2020-05-13 15:50 | Hospitalist Progress Note ---
Date of Service May 13, 2020 Assessment & Plan (1) Bacteremia due to Gram-negative bacteria: 84 yo F with hx CKD, sinus node dysfunction s/p pacemaker, DM2 on insulin therapy, candidiasis of mouth and esophagus, COPD, HTN admitted with sepsis and bacteremia 2/2 ESBL E coli UTI. Bacteremia secondary to UTI, clinically improving, afebrile - WBC 8.71 downtrending on ertapenem IV - UA this admission showing turbid urine, nitrites, 3+ LE, 4+ bacteria, >30 WBC. - Broad spectrum coverage with Zosyn initiated on admission, was changed to ertapenem, then imipenem w/ cilastatin (to cover pseudomonas) now back to Ertapenem - 05/02 grew ESBL E. coli in BCx x2 and UCx; ertapenem started 05/04 plan for 14 day course. - continue IVF for NATALIA as below. - Repeat BCx ordered and negative to date. - Case Management aware and will be discharged to SNF with peripheral access for duration of Abx - CXR on 05/02 without findings suggestive of pneumonia. CXR 05/05 with LLL subtle airspace opacities. CXR 05/08 with improving left basilar airspace opacities with residual indistinctness of the left phrenic angle, atelectasis versus pneumonia. - Continue to monitor respiratory status, fever checks, CBC AM while admitt ed. - This admission patient was educated on proper urinary hygiene. - Awaiting placement to SNF vs. personal longterm. Metabolic encephalopathy: - With waxing and waning level of alertness, differentials include metabolic derangement, delirium 2/2 hospitalization in the elderly, infection. - VBG normal. Admitted with bacteremia sensitive to ertepenem, on Abx treatment since 05/04. - CT 05/02 without signs of CVA or other acute intracranial abnormality. - Likely 2/2 delirium from hospitalization. NATALIA: - Baseline Cr of ~1.1. - Cr 0.99->1.35-> 1.28 ->1.22 with poor PO hydration, has been receiving NSS @ 80mL/hr - Daily BMP to monitor, continuation oral and IV hydration. - Continue to monitor input/output for proper renal function and urine formation. Atrial fibrillation with Rapid Ventricular Response: - 05/04 patient was in AFib with RVR to 120s, given Lopressor 5mg IV x2 and resumed home dose Toprol XL with return to normal HR of 80s. - Was in AFib though with HR in the 80s for a total of about 12 hours; no history of in chart. Suspect patient may have had Paroxysmal AFib without symptoms which was exacerbated by her dehydration and sepsis while admitted and on cardiac monitoring. - Does not follow with a Ballet [employer] Member, however was last seen in [address] Hanson for pacemaker placement. - Have started Eliquis 5mg BID here for AC. Patient already on metoprolol at home, this was being held due to soft BPs but have restarted. - Cardiology consulted and appreciate recs: pacemaker interrogated and this is single episode recorded of AFib; parameters adjusted. - Will need Cardiology follow up (Dr. Hanson) for her pacemaker and A. Fib following discharge. COPD: - Continue home O2 3LNC as needed qHS. - As patient had some relief in sputum production and chest congestion with neb, some improvement in wheezing, will repeat x1. - Due to persistent wheezing and Hx. COPD have started Incruse Ellipta inhaler this admission. DM2: - A1c 6.6, goal of <7. - On Lantus 15u HS at home. - SSI initiated here with range 100 - 150, correction factor 25, INS:CHO 1:10. - Anticipate return to home regimen on discharge. Sinus dysfunction, s/p pacemaker: - No palpitations, no bradycardia on admission. - Pacemaker interrogated, please see Cardiology note. HTN: - Metoprolol succinate 100 mg PO AM, losartan 100 mg PO AM, HCTZ 25 mg PO AM, Nifedipine 60 mg PO AM [unconfirmed; per 09/2019 cardiac note]. - These medications were held on admission given normal systolic and borderline low diastolic BP. - Have restarted all home medications as above at this time. CAD: - ASA and Simvastatin 20 per home regimen. Code Status: Full Code DVT ppx: Eliquis 5mg BID FEN/GI: Regular with SSI; this is because patient was not tolerating DM2 diet and requesting macaroni and cheese. Given poor intake for several days will allow for patient's request. Dispo: Med/Surg (2) Acute UTI (urinary tract infection): Admission and Anticipated Discharge Date Admission Date: May 02, 2020 Supervising Physician Co-Signing Physician Notes I personally examined the patient and verified all mackey points of history and exam, discussed case, and agree with decision making with Dr Garcias. no meaningful HPI or ROS obtainable. still waiting on placement. d/w nursing no new needs identified vitals noted nad heent nc at mmm breathing unlabored no accessory muscles good effort skin no rashes no pallor or icterus ESBL UTI/Bacteremia/sepsis - stable to overall improved - just delirium causing waxing and waning of clinical picture - likely from being in hospital so many days + age + infection -- but clinically do not suspect worsening or new infection -doing well on ertapenem - to complete 14 days abx for gm neg bacteremia in frail elderly pt. for SNF once able otherwise as above Subjective Doing okay this morning. She was sleepy after having breakfast and did not answer any of my questions today. Nursing brought up that she was doing better in regard to breathing and eating. Review of Systems Review of Systems: unable to obtain due to confusion Physical Exam Constitutional: well developed and well nourished; no acute distress ENMT: external ear and nose normal, oropharynx normal Neck: normal visual inspection Respiratory: normal respiratory effort, lungs clear to auscultation Cardiovascular: RRR, no murmur, no edema Gastrointestinal (Abdomen): normal bowel sounds, soft, nontender, no hepatosplenomegaly Skin: no rashes, warm and dry Neurologic: Speech / Cognition: + abnormal speech (somewhat garbled speech this morning) Psychiatric: Orientation: alert Affect: euthymic affect Results & Data Results & Data ([facility]) Vital Signs (Past 12 Hours) Vital Signs Temp Pulse Resp BP Pulse Ox 05/13/20 15:33 36.8 C 68 18 144/83 H 97 05/13/20 11:31 36.6 C 62 18 174/86 H 97 05/13/20 07:28 36.4 C L 69 16 168/100 H 98 CBC Results Results Complete Blood Count Results: RBC 3.34 M/uL (4.2-5.4) L 05/13/20 WBC 8.71 K/uL (4.8-10.8) 05/13/20 Hgb 10.2 g/dL (12.0-16.0) L 05/13/20 Hct 31.1 % (37-47) L 05/13/20 Plt Count 367 K/uL (130-400) 05/13/20 Chemistry (BMP) Results BMP Results: Sodium 142 mmol/L (136-145) 05/13/20 Potassium 3.4 mmol/L (3.5-5.1) L 05/13/20 Chloride 104 mmol/L (98-107) 05/13/20 BUN 11 mg/dl (7-18) 05/13/20 Creatinine 0.91 mg/dl (0.6-1.2) 05/13/20 Glucose 98 mg/dl (70-99) 05/13/20 Resident Activity Tracking Resident Involvement: Resident Care Provided Care Provided: [facility] Medicine
[2020-05-13] MEDS: ERTAPENEM SODIUM 1,000 MG in SODIUM CHLORIDE 0.9% 50 ML IV SCH (18:22)
--- NOTE | 2020-05-13 20:04 | Billing Data ---
Date of Service May 13, 2020 Coding Level of Care Code 82482 Subseq Hosp Care Lvl 2
[2020-05-13] MEDS: PSYLLIUM 58.6% POWDER PACKET PO SCH (21:00)
[2020-05-14 06:15] LABS: Basophils # (auto) 0.02 K/uL (0-0.2); Basophils % (auto) 0.2 %; Eosinophils # (auto) 0.26 K/uL (0-0.5); Eosinophils % (auto) 2.4 %; Hematocrit (blood only) 31.4 % (37-47); Hemoglobin 10.2 g/dL (12.0-16.0); Immature Granulocytes # (auto) 0.02 K/uL (0.00-0.02); Immature Granulocytes % (auto) 0.2 %; Lymphocytes # (auto) 1.72 K/uL (1.2-3.4); Lymphocytes % (auto) 16.1 %; Mean Corpuscular Hemoglobin 30.2 pg (25-34); Mean Corpuscular Hgb Conc 32.5 g/dL (32-36); Mean Corpuscular Volume 92.9 fL (80-100); Mean Platelet Volume 8.7 fL (7.4-10.4); Monocytes # (auto) 0.68 K/uL (0.11-0.59); Monocytes % (auto) 6.4 %; Neutrophils # (auto) 7.97 K/uL (1.4-6.5); Neutrophils % (auto) 74.7 %; Platelet Count 406 K/uL (130-400); RDW Coefficient of Variation 12.5 % (11.5-14.5); RDW Standard Deviation 42.4 fL (36.4-46.3); Red Blood Count 3.38 M/uL (4.2-5.4); White Blood Count 10.67 K/uL (4.8-10.8)
[2020-05-14 06:46] LABS: BUN Creatinine Ratio 13.6 (10-20); Calcium 10.4 mg/dl (8.5-10.1); Creatinine Clr Calc Pharmacy 39.4 ml/min; Est GFR (African American) 56.3; Est GFR (Non-African American) 48.6; Potassium 3.3 mmol/L (3.5-5.1)
[2020-05-14] MEDS: CEROVITE ADV FORMULA TAB PO SCH ×2 (07:55→18:10)
[2020-05-14] MEDS: APIXABAN 5 MG TABLET PO SCH ×2 (07:55→21:16)
[2020-05-14] MEDS: UMECLIDINIUM BROMIDE 62.5MCG/BLISTER 7 PUFFS/INHALER INH SCH (07:55)
[2020-05-14] MEDS: FLUTICASONE/VILANTEROL 200/25MCG 14 PUFFS/INHALER INH SCH (07:55)
[2020-05-14] MEDS: LOSARTAN POTASSIUM 50 MG TAB PO SCH (07:56)
[2020-05-14] MEDS: CALCIUM 600MG + VIT D 400 IU TAB PO SCH (07:56)
[2020-05-14] MEDS: hydroCHLOROthiazide 25 MG TAB PO SCH (07:56)
[2020-05-14] MEDS: METOPROLOL SUCC 50MG EXT REL TAB PO SCH (07:56)
[2020-05-14] MEDS: SIMVASTATIN 20 MG TAB PO SCH (07:57)
[2020-05-14] MEDS: NIFEdipine EXTENDED REL 30 MG TABCR PO SCH (07:57)
[2020-05-14] MEDS: INSULIN ASPART 100 UNITS/ML 3 ML PEN SC SCH ×4 (09:01→21:23)
[2020-05-14] MEDS: DOCUSATE SODIUM 100 MG CAP PO SCH (12:48)
--- NOTE | 2020-05-14 16:21 | Hospitalist Progress Note ---
Date of Service May 14, 2020 Assessment & Plan (1) Bacteremia due to Gram-negative bacteria: 84 yo F with hx CKD, sinus node dysfunction s/p pacemaker, DM2 on insulin therapy, candidiasis of mouth and esophagus, COPD, HTN admitted with sepsis and bacteremia 2/2 ESBL E coli UTI. Bacteremia secondary to UTI, clinically improving, afebrile - WBC 10.67 on ertapenem IV - UA this admission showing turbid urine, nitrites, 3+ LE, 4+ bacteria, >30 WBC. - Broad spectrum coverage with Zosyn initiated on admission, was changed to ertapenem, then imipenem w/ cilastatin (to cover pseudomonas) now back to Ertapenem - 05/02 grew ESBL E. coli in BCx x2 and UCx; ertapenem started 05/04 plan for 14 day course. - continue IVF for NATALIA as below. - Repeat BCx ordered and negative at 5 days final. - Case Management aware and will be discharged to SNF with peripheral access for duration of Abx - CXR on 05/02 without findings suggestive of pneumonia. CXR 05/05 with LLL subtle airspace opacities. CXR 05/08 with improving left basilar airspace opacities with residual indistinctness of the left phrenic angle, atelectasis versus pneumonia. - Continue to monitor respiratory status, fever checks, CBC AM while admitted. - This admission patient was educated on proper urinary hygiene. - Awaiting placement to SNF vs. personal fdc. Metabolic encephalopathy: - With waxing and waning level of alertness, differentials include metabolic derangement, delirium 2/2 hospitalization in the elderly, infection. - VBG normal. Admitted with bacteremia sensitive to ertepenem, on Abx treatment since 05/04. - CT 05/02 without signs of CVA or other acute intracranial abnormality. - Likely 2/2 delirium from hospitalization. NATALIA: - Baseline Cr of ~1.1. - Cr 0.99->1.35-> 1.28 ->1.22 with poor PO hydration, has been receiving NSS @ 80mL/hr - Daily BMP to monitor, continuation oral and IV hydration. - Continue to monitor input/output for proper renal function and urine f ormation. Atrial fibrillation with Rapid Ventricular Response: - 05/04 patient was in AFib with RVR to 120s, given Lopressor 5mg IV x2 and resumed home dose Toprol XL with return to normal HR of 80s. - Was in AFib though with HR in the 80s for a total of about 12 hours; no history of in chart. Suspect patient may have had Paroxysmal AFib without symptoms which was exacerbated by her dehydration and sepsis while admitted and on cardiac monitoring. - Does not follow with a Air Duct Mechanic, however was last seen [place] [address] Hanson for pacemaker placement. - Have started Eliquis 5mg BID here for AC. Patient already on metoprolol at home, this was being held due to soft BPs but have restarted. - Cardiology consulted and appreciate recs: pacemaker interrogated and this is single episode recorded of AFib; parameters adjusted. - Will need Cardiology follow up (Dr. Hanson) for her pacemaker and A. Fib following discharge. COPD: - Continue home O2 3LNC as needed qHS. - As patient had some relief in sputum production and chest congestion with neb, some improvement in wheezing, will repeat x1. - Due to persistent wheezing and Hx. COPD have started Incruse Ellipta inhaler this admission. DM2: - A1c 6.6, goal of <7. - On Lantus 15u HS at home. - SSI initiated here with range 100 - 150, correction factor 25, INS:CHO 1:10. - Anticipate return to home regimen on discharge. Sinus dysfunction, s/p pacemaker: - No palpitations, no bradycardia on admission. - Pacemaker interrogated, please see Cardiology note. HTN: - Metoprolol succinate 100 mg PO AM, losartan 100 mg PO AM, HCTZ 25 mg PO AM, Nifedipine 60 mg PO AM [unconfirmed; per 09/2019 cardiac note]. - These medications were held on admission given normal systolic and borderline low diastolic BP. - Have restarted all home medications as above at this time. CAD: - ASA and Simvastatin 20 per home regimen. Code Status: Full Code DVT ppx: Eliquis 5mg BID FEN/GI: Regular with SSI; this is because patient was not tolerating DM2 diet and requesting macaroni and cheese. Given poor intake for several days will allow for patient's request. Dispo: Med/Surg (2) Acute UTI (urinary tract infection): Admission and Anticipated Discharge Date Admission Date: May 02, 2020 Supervising Physician Co-Signing Physician Notes I personally examined the patient and verified all mackey points of history and exam, discussed case, and agree with decision making with Dr Garcias. no meaningful HPI or ROS obtainable. still waiting on placement. pleasant today vitals noted nad heent nc at mmm breathing unlabored no accessory muscles good effort skin no rashes no pallor or icterus ESBL UTI/Bacteremia/sepsis - stable to overall improved - just delirium causing waxing and waning of clinical picture - likely from being in hospital so many days + age + infection -- but clinically do not suspect worsening or new infection -doing well on ertapenem - to complete 14 days abx for gm neg bacteremia in frail elderly pt. (on 05/17) for SNF once able / bed available/ etc. otherwise as above Subjective Doing okay this morning. She was sleepy but then woke up and was more interactive with me. she had no pain, knew her name but was not able to answer where she was or the date. Review of Systems Review of Systems: Unobtainable due to cognitive status Physical Exam Constitutional: well developed and well nourished; no acute distress ENMT: external ear and nose normal, oropharynx normal Neck: normal visual inspection Respiratory: normal respiratory effort, lungs clear to auscultation Cardiovascular: RRR, no murmur, no edema Gastrointestinal (Abdomen): normal bowel sounds, soft, nontender, no hepatosplenomegaly Skin: no rashes, warm and dry Neurologic: Speech / Cognition: + abnormal speech (somewhat garbled speech thi s morning) Psychiatric: Orientation: alert Affect: euthymic affect Results & Data Results & Data ([facility]) Vital Signs (Past 12 Hours) Vital Signs Temp Pulse Resp BP Pulse Ox 05/14/20 15:07 36.8 C 75 18 161/75 H 94 05/14/20 11:18 36.4 C L 70 18 150/71 H 100 05/14/20 07:29 36.5 C 70 18 140/67 100 CBC Results Results Complete Blood Count Results: RBC 3.38 M/uL (4.2-5.4) L 05/14/20 WBC 10.67 K/uL (4.8-10.8) 05/14/20 Hgb 10.2 g/dL (12.0-16.0) L 05/14/20 Hct 31.4 % (37-47) L 05/14/20 Plt Count 406 K/uL (130-400) H 05/14/20 Chemistry (BMP) Results BMP Results: Sodium 140 mmol/L (136-145) 05/14/20 Potassium 3.3 mmol/L (3.5-5.1) L 05/14/20 Chloride 101 mmol/L (98-107) 05/14/20 BUN 14 mg/dl (7-18) 05/14/20 Creatinine 1.04 mg/dl (0.6-1.2) 05/14/20 Glucose 101 mg/dl (70-99) H 05/14/20 Resident Activity Tracking Resident Involvement: Resident Care Provided Care Provided: Adult [facility] Medicine
[2020-05-14] MEDS: ERTAPENEM SODIUM 1,000 MG in SODIUM CHLORIDE 0.9% 50 ML IV SCH (18:02)
--- NOTE | 2020-05-14 19:43 | Billing Data ---
Date of Service May 14, 2020 Coding Level of Care Code 10623 Subseq Hosp Care Lvl 2
[2020-05-14] MEDS: PSYLLIUM 58.6% POWDER PACKET PO SCH (21:16)
[2020-05-15 07:34] LABS: Hematocrit (blood only) 30.4 % (37-47); Hemoglobin 10.1 g/dL (12.0-16.0); Mean Corpuscular Hemoglobin 30.4 pg (25-34); Mean Corpuscular Hgb Conc 33.2 g/dL (32-36); Mean Corpuscular Volume 91.6 fL (80-100); Mean Platelet Volume 8.5 fL (7.4-10.4); Platelet Count 376 K/uL (130-400); RDW Coefficient of Variation 12.3 % (11.5-14.5); RDW Standard Deviation 41.3 fL (36.4-46.3); Red Blood Count 3.32 M/uL (4.2-5.4); White Blood Count 10.01 K/uL (4.8-10.8)
[2020-05-15] MEDS: UMECLIDINIUM BROMIDE 62.5MCG/BLISTER 7 PUFFS/INHALER INH SCH (07:43)
[2020-05-15] MEDS: CEROVITE ADV FORMULA TAB PO SCH ×2 (07:44→18:03)
[2020-05-15] MEDS: hydroCHLOROthiazide 25 MG TAB PO SCH (07:44)
[2020-05-15] MEDS: METOPROLOL SUCC 50MG EXT REL TAB PO SCH (07:44)
[2020-05-15] MEDS: NIFEdipine EXTENDED REL 30 MG TABCR PO SCH (07:44)
[2020-05-15] MEDS: FLUTICASONE/VILANTEROL 200/25MCG 14 PUFFS/INHALER INH SCH (07:44)
[2020-05-15] MEDS: APIXABAN 5 MG TABLET PO SCH ×2 (07:44→22:12)
[2020-05-15] MEDS: LOSARTAN POTASSIUM 50 MG TAB PO SCH (07:45)
[2020-05-15] MEDS: CALCIUM 600MG + VIT D 400 IU TAB PO SCH (07:45)
[2020-05-15] MEDS: SIMVASTATIN 20 MG TAB PO SCH (07:45)
[2020-05-15 07:55] LABS: BUN Creatinine Ratio 13.8 (10-20); Calcium 10.4 mg/dl (8.5-10.1); Creatinine Clr Calc Pharmacy 38.5 ml/min; Est GFR (African American) 56.3; Est GFR (Non-African American) 48.6; Potassium 3.1 mmol/L (3.5-5.1)
[2020-05-15] MEDS: INSULIN ASPART 100 UNITS/ML 3 ML PEN SC SCH ×4 (09:16→21:07)
[2020-05-15] MEDS: DOCUSATE SODIUM 100 MG CAP PO SCH (12:53)
[2020-05-15] MEDS: ERTAPENEM SODIUM 1,000 MG in SODIUM CHLORIDE 0.9% 50 ML IV SCH (18:11)
--- NOTE | 2020-05-15 19:12 | Hospitalist Progress Note ---
Date of Service May 15, 2020 Assessment & Plan (1) Bacteremia due to Gram-negative bacteria: 84 yo F with hx CKD, sinus node dysfunction s/p pacemaker, DM2 on insulin therapy, candidiasis of mouth and esophagus, COPD, HTN admitted with sepsis and bacteremia 2/2 ESBL E coli UTI. Bacteremia secondary to UTI, clinically improving, afebrile - WBC 10.01 on ertapenem IV - UA this admission showing turbid urine, nitrites, 3+ LE, 4+ bacteria, >30 WBC. - Broad spectrum coverage with Zosyn initiated on admission, was changed to ertapenem, then imipenem w/ cilastatin (to cover pseudomonas) now back to Ertapenem - 05/02 grew ESBL E. coli in BCx x2 and UCx; ertapenem started 05/04 plan for 14 day course. - continue IVF for NATALIA as below. - Repeat BCx ordered and negative at 5 days final. - Case Management aware and will be discharged to SNF with peripheral access for duration of Abx - CXR on 05/02 without findings suggestive of pneumonia. CXR 05/05 with LLL subtle airspace opacities. CXR 05/08 with improving left basilar airspace opacities with residual indistinctness of the left phrenic angle, atelectasis versus pneumonia. - Continue to monitor respiratory status, fever checks, CBC AM while admitted. - This admission patient was educated on proper urinary hygiene. - Awaiting placement to SNF vs. personal assisted. Metabolic encephalopathy: - With waxing and waning level of alertness, differentials include metabolic derangement, delirium 2/2 hospitalization in the elderly, infection. - VBG normal. Admitted with bacteremia sensitive to ertepenem, on Abx treatment since 05/04. - CT 05/02 without signs of CVA or other acute intracranial abnormality. - Likely 2/2 delirium from hospitalization. NATALIA: - Baseline Cr of ~1.1. - Cr 0.99->1.35-> 1.28 ->1.22 with poor PO hydration, has been receiving NSS @ 80mL/hr - continue to monitor BMP, continuation oral hydration. - Continue to monitor input/output for proper renal function and urine forma tion. Atrial fibrillation with Rapid Ventricular Response: - 05/04 patient was in AFib with RVR to 120s, given Lopressor 5mg IV x2 and resumed home dose Toprol XL with return to normal HR of 80s. - Was in AFib though with HR in the 80s for a total of about 12 hours; no history of in chart. Suspect patient may have had Paroxysmal AFib without symptoms which was exacerbated by her dehydration and sepsis while admitted and on cardiac monitoring. - Does not follow with a Financial Director, however was last seen in [address] Hanson for pacemaker placement. - Have started Eliquis 5mg BID here for AC. Patient already on metoprolol at home, this was being held due to soft BPs but have restarted. - Cardiology consulted and appreciate recs: pacemaker interrogated and this is single episode recorded of AFib; parameters adjusted. - Will need Cardiology follow up (Dr. Hanson) for her pacemaker and A. Fib following discharge. COPD: - Continue home O2 3LNC as needed qHS. - As patient had some relief in sputum production and chest congestion with neb, some improvement in wheezing, will repeat x1. - Due to persistent wheezing and Hx. COPD have started Incruse Ellipta inhaler this admission. DM2: - A1c 6.6, goal of <7. - On Lantus 15u HS at home. - SSI initiated here with range 100 - 150, correction factor 25, INS:CHO 1:10. - Anticipate return to home regimen on discharge. Sinus dysfunction, s/p pacemaker: - No palpitations, no bradycardia on admission. - Pacemaker interrogated, please see Cardiology note. HTN: - Metoprolol succinate 100 mg PO AM, losartan 100 mg PO AM, HCTZ 25 mg PO AM, Nifedipine 60 mg PO AM [unconfirmed; per 09/2019 cardiac note]. - These medications were held on admission given normal systolic and borderline low diastolic BP. - Have restarted all home medications as above at this time. CAD: - ASA and Simvastatin 20 per home regimen. Code Status: Full Code DVT ppx: Eliquis 5mg BID FEN/GI: Regular with SSI; this is because patient was not tolerating DM2 diet and requesting macaroni and cheese. Given poor intake for several days will allow for patient's request. Dispo: Med/Surg (2) Acute UTI (urinary tract infection): Admission and Anticipated Discharge Date Admission Date: May 02, 2020 Supervising Physician Co-Signing Physician Notes I personally examined the patient and verified all mackey points of history and exam, discussed case, and agree with decision making with Dr Garcias. no meaningful HPI or ROS obtainable. sounds as though placement for early next week likely vitals noted nad heent nc at mmm breathing unlabored no accessory muscles good effort skin no rashes no pallor or icterus ESBL UTI/Bacteremia/sepsis - stable to overall improved - just delirium causing waxing and waning of clinical picture - likely from being in hospital so many days + age + infection -- but clinically do not suspect worsening or new infection -doing well on ertapenem - to complete 14 days abx for gm neg bacteremia in frail elderly pt - this will complete over the weekend. appears SNF might be available on monday otherwise as above Subjective Doing okay this morning. She was awake and interactive with me. she had no pain, knew her name but was not able to answer where she was or the date. Review of Systems Review of Systems: unable to obtain due to confusion Physical Exam Constitutional: well developed and well nourished; no acute distress ENMT: external ear and nose normal, oropharynx normal Neck: normal visual inspection Respiratory: normal respiratory effort, lungs clear to auscultation Cardiovascular: RRR, no murmur, no edema Gastrointestinal (Abdomen): normal bowel sounds, soft, nontender, no hepatosplenomegaly Skin: no rashes, warm and dry Neurologic: Speech / Cognition: + abnormal speech (somewhat garbled ) Psychiatric: Orientation: alert Affect: euthymic affect Results & Data Results & Data ([facility]) Vital Signs (Past 12 Hours) Vital Signs Temp Pulse Pulse Resp BP Pulse Ox 05/15/20 15:05 37.2 C 70 20 127/80 99 05/15/20 11:55 80 05/15/20 11:25 36.9 C 64 18 159/76 H 99 05/15/20 07:26 36.9 C 71 18 149/79 H 96 CBC Results Results Complete Blood Count Results: RBC 3.32 M/uL (4.2-5.4) L 05/15/20 WBC 10.01 K/uL (4.8-10.8) 05/15/20 Hgb 10.1 g/dL (12.0-16.0) L 05/15/20 Hct 30.4 % (37-47) L 05/15/20 Plt Count 376 K/uL (130-400) 05/15/20 Chemistry (BMP) Results BMP Results: Sodium 139 mmol/L (136-145) 05/15/20 Potassium 3.1 mmol/L (3.5-5.1) L 05/15/20 Chloride 97 mmol/L (98-107) L 05/15/20 BUN 14 mg/dl (7-18) 05/15/20 Creatinine 1.04 mg/dl (0.6-1.2) 05/15/20 Glucose 109 mg/dl (70-99) H 05/15/20 Resident Activity Tracking Resident Involvement: Resident Care Provided Care Provided: Adult [facility]
--- NOTE | 2020-05-15 19:51 | Billing Data ---
Date of Service May 15, 2020 Coding Level of Care Code 47902 Subseq Hosp Care Lvl 2
[2020-05-15] MEDS: PSYLLIUM 58.6% POWDER PACKET PO SCH (22:13)
[2020-05-16 07:18] LABS: BUN Creatinine Ratio 14.6 (10-20); Calcium 9.9 mg/dl (8.5-10.1); Est GFR (African American) 59.1; Potassium 3.2 mmol/L (3.5-5.1)
[2020-05-16] MEDS: APIXABAN 5 MG TABLET PO SCH ×2 (07:40→21:33)
[2020-05-16] MEDS: LOSARTAN POTASSIUM 50 MG TAB PO SCH (07:40)
[2020-05-16] MEDS: CALCIUM 600MG + VIT D 400 IU TAB PO SCH (07:40)
[2020-05-16] MEDS: hydroCHLOROthiazide 25 MG TAB PO SCH (07:40)
[2020-05-16] MEDS: CEROVITE ADV FORMULA TAB PO SCH ×2 (07:41→17:20)
[2020-05-16] MEDS: METOPROLOL SUCC 50MG EXT REL TAB PO SCH (07:41)
[2020-05-16] MEDS: NIFEdipine EXTENDED REL 30 MG TABCR PO SCH (07:41)
[2020-05-16] MEDS: SIMVASTATIN 40 MG TAB PO SCH (07:42)
[2020-05-16] MEDS: UMECLIDINIUM BROMIDE 62.5MCG/BLISTER 7 PUFFS/INHALER INH SCH (07:42)
[2020-05-16] MEDS: FLUTICASONE/VILANTEROL 200/25MCG 14 PUFFS/INHALER INH SCH (07:43)
[2020-05-16] MEDS ORDERED: POTASSIUM CHLORIDE 20 MEQ TABCR PO ONE (08:00)
[2020-05-16] MEDS ORDERED: POTASSIUM CHLORIDE PWD 20 MEQ PACK PO ONE (08:00)
[2020-05-16] MEDS: DOCUSATE SODIUM 100 MG CAP PO SCH (09:08)
[2020-05-16] MEDS: INSULIN ASPART 100 UNITS/ML 3 ML PEN SC SCH ×4 (09:28→21:28)
--- NOTE | 2020-05-16 13:47 | Hospitalist Progress Note ---
Date of Service May 16, 2020 Assessment & Plan (1) Bacteremia due to Gram-negative bacteria: 84 yo F with hx CKD, sinus node dysfunction s/p pacemaker, DM2 on insulin therapy, candidiasis of mouth and esophagus, COPD, HTN admitted with sepsis and bacteremia 2/2 ESBL E coli UTI. Bacteremia secondary to UTI, clinically improving, afebrile - WBC normalized on ertapenem IV EOTD 03/17 - UA this admission showing turbid urine, nitrites, 3+ LE, 4+ bacteria, >30 WBC. - Broad spectrum coverage with Zosyn initiated on admission, was changed to ertapenem, then imipenem w/ cilastatin (to cover pseudomonas) now back to Ertapenem - 05/02 grew ESBL E. coli in BCx x2 and UCx; ertapenem started 05/04 plan for 14 day course. - continue IVF for NATALIA as below. - Repeat BCx negative at 5 days final. - Case Management aware and will be discharged to SNF - CXR on 05/02 without findings suggestive of pneumonia. CXR 05/05 with LLL subtle airspace opacities. CXR 05/08 with improving left basilar airspace opacities with residual indistinctness of the left phrenic angle, atelectasis versus pneumonia. - Continue to monitor respiratory status, fever checks, while admitted. - This admission patient was educated on proper urinary hygiene. - Awaiting placement Metabolic encephalopathy - With waxing and waning level of alertness, differentials include metabolic derangement, delirium 2/2 hospitalization in the elderly, infection. - VBG normal. Admitted with bacteremia sensitive to ertepenem, on Abx treatment since 05/04. - CT 05/02 without signs of CVA or other acute intracranial abnormality. - Likely 2/2 delirium from hospitalization. NATALIA: - Baseline Cr of ~1.1. - Cr 0.99->1.35-> 1.28 ->1.22 with poor PO hydration, has been receiving NSS @ 80mL/hr - continue to monitor BMP, continuation oral hydration. - Continue to monitor input/output for proper renal function and urine formation. Atrial fibrillation with Rapid Ventricular Response - 05/04 patient was in AFib with RVR to 120s, given Lopressor 5mg IV x2 and resumed home dose Toprol XL with return to normal HR of 80s. - Was in AFib though with HR in the 80s for a total of about 12 hours; no history of in chart. Suspect patient may have had Paroxysmal AFib without symptoms which was exacerbated by her dehydration and sepsis while admitted and on cardiac monitoring. - Does not follow with a Rehabilitation Specialist, however was last seen in [address] Hanson for pacemaker placement. - Have started Eliquis 5mg BID here for AC. Patient already on metoprolol at home, this was being held due to soft BPs but have restarted. - Cardiology consulted and appreciate recs: pacemaker interrogated and this is single episode recorded of AFib; parameters adjusted. - Will need Cardiology follow up (Dr. Hanson) for her pacemaker and A. Fib following discharge. COPD - Continue home O2 3LNC as needed qHS. - As patient had some relief in sputum production and chest congestion with neb, some improvement in wheezing, will repeat x1. - Due to persistent wheezing and Hx. COPD have started Incruse Ellipta inhaler this admission. DM2 - A1c 6.6, goal of <7. - On Lantus 15u HS at home. - SSI initiated here with range 100 - 150, correction factor 25, INS:CHO 1:10. - Anticipate return to home regimen on discharge. Sinus dysfunction, s/p pacemaker - No palpitations, no bradycardia on admission. - Pacemaker interrogated, please see Cardiology note. HTN - Metoprolol succinate 100 mg PO AM, losartan 100 mg PO AM, HCTZ 25 mg PO AM, Nifedipine 60 mg PO AM [unconfirmed; per 09/2019 cardiac note]. - These medications were held on admission given normal systolic and borderline low diastolic BP. - Have restarted all home medications as above at this time. CAD - ASA and Simvastatin 20 per home regimen. Code Status: Full Code DVT ppx: Eliquis 5mg BID FEN/GI: Regular with SSI; this is because patient was not tolerating DM2 diet and requesting macaroni and cheese. Given poor intake for several days will al low for patient's request. Dispo: Med/Surg (2) Acute UTI (urinary tract infection): Admission and Anticipated Discharge Date Admission Date: May 02, 2020 Supervising Physician Co-Signing Physician Notes I personally examined the patient and verified all mackey points of history and exam, discussed case, and agree with decision making with Dr Garcias. no meaningful HPI or ROS obtainable. sounds as though placement for early next week likely vitals noted nad heent nc at mmm breathing unlabored no accessory muscles good effort skin no rashes no pallor or icterus ESBL UTI/Bacteremia/sepsis - stable to overall improved - just delirium causing waxing and waning of clinical picture - likely from being in hospital so many days + age + infection -- but clinically do not suspect worsening or new infection -doing well on ertapenem - to complete 14 days abx for gm neg bacteremia in frail elderly pt - last day tomorrow. anticipate placement monday. otherwise as above Subjective Doing okay this morning. She was awake and interactive with me. She had no pain, she did not know her name, but did know where she was. I continue to reorient her. Review of Systems Review of Systems: Unobtainable due to cognitive status Physical Exam Constitutional: Constitutional: well developed and well nourished; no acute distress ENMT: external ear and nose normal, oropharynx normal Neck: normal visual inspection Respiratory: normal respiratory effort, lungs clear to auscultation Cardiovascular: RRR, no murmur, no edema Gastrointestinal (Abdomen): normal bowel sounds, soft, nontender, no hepatosplenomegaly Skin: no rashes, warm and dry Neurologic: Speech / Cognition: + abnormal speech (somewhat garbled ) Affect: euthymic affect Results & Data Results & Data ([facility]) Vital Signs (Past 12 Hours) Vital Signs Temp Pulse Pulse Resp BP Pulse Ox 05/16/20 12:54 75 05/16/20 11:32 37.0 C 75 18 159/74 H 92 05/16/20 07:20 36.9 C 81 20 94 05/16/20 05:11 36.8 C 77 20 113/60 94 05/16/20 02:40 70 CBC Results Results Complete Blood Count Results: RBC 3.32 M/uL (4.2-5.4) L 05/15/20 WBC 10.01 K/uL (4.8-10.8) 05/15/20 Hgb 10.1 g/dL (12.0-16.0) L 05/15/20 Hct 30.4 % (37-47) L 05/15/20 Plt Count 376 K/uL (130-400) 05/15/20 Chemistry (BMP) Results BMP Results: Sodium 140 mmol/L (136-145) 05/16/20 Potassium 3.2 mmol/L (3.5-5.1) L 05/16/20 Chloride 100 mmol/L (98-107) 05/16/20 BUN 15 mg/dl (7-18) 05/16/20 Creatinine 1.00 mg/dl (0.6-1.2) 05/16/20 Glucose 115 mg/dl (70-99) H 05/16/20 Resident Activity Tracking Resident Involvement: Resident Care Provided Care Provided: Adult [facility]
[2020-05-16] MEDS: ERTAPENEM SODIUM 1,000 MG in SODIUM CHLORIDE 0.9% 50 ML IV SCH (17:20)
--- NOTE | 2020-05-16 19:09 | Billing Data ---
Date of Service May 16, 2020 Coding Level of Care Code 27383 Subseq Hosp Care Lvl 2
[2020-05-16] MEDS: PSYLLIUM 58.6% POWDER PACKET PO SCH (21:33)
[2020-05-17] MEDS: FLUTICASONE/VILANTEROL 200/25MCG 14 PUFFS/INHALER INH SCH (07:25)
[2020-05-17] MEDS: CEROVITE ADV FORMULA TAB PO SCH ×2 (07:25→17:50)
[2020-05-17] MEDS: APIXABAN 5 MG TABLET PO SCH ×2 (07:25→22:00)
[2020-05-17] MEDS: UMECLIDINIUM BROMIDE 62.5MCG/BLISTER 7 PUFFS/INHALER INH SCH (07:26)
[2020-05-17] MEDS: hydroCHLOROthiazide 25 MG TAB PO SCH (07:30)
[2020-05-17] MEDS: NIFEdipine EXTENDED REL 30 MG TABCR PO SCH (07:31)
[2020-05-17] MEDS: LOSARTAN POTASSIUM 50 MG TAB PO SCH (07:31)
[2020-05-17] MEDS: SIMVASTATIN 40 MG TAB PO SCH (07:32)
[2020-05-17] MEDS: METOPROLOL SUCC 50MG EXT REL TAB PO SCH (07:32)
[2020-05-17] MEDS: CALCIUM 600MG + VIT D 400 IU TAB PO SCH (07:32)
[2020-05-17 08:22] LABS: Hematocrit (blood only) 32.8 % (37-47); Hemoglobin 10.7 g/dL (12.0-16.0); Mean Corpuscular Hemoglobin 30.5 pg (25-34); Mean Corpuscular Hgb Conc 32.6 g/dL (32-36); Mean Corpuscular Volume 93.4 fL (80-100); Platelet Count 422 K/uL (130-400); RDW Coefficient of Variation 12.7 % (11.5-14.5); RDW Standard Deviation 42.8 fL (36.4-46.3); Red Blood Count 3.51 M/uL (4.2-5.4); White Blood Count 9.26 K/uL (4.8-10.8)
[2020-05-17] MEDS: INSULIN ASPART 100 UNITS/ML 3 ML PEN SC SCH ×4 (08:35→21:43)
[2020-05-17 08:47] LABS: BUN Creatinine Ratio 17.4 (10-20); Calcium 10.3 mg/dl (8.5-10.1); Potassium 3.5 mmol/L (3.5-5.1)
[2020-05-17] MEDS: DOCUSATE SODIUM 100 MG CAP PO SCH (12:19)
--- NOTE | 2020-05-17 15:34 | Hospitalist Progress Note ---
Date of Service May 17, 2020 Assessment & Plan (1) Bacteremia due to Gram-negative bacteria: 84 yo F with hx CKD, sinus node dysfunction s/p pacemaker, DM2 on insulin therapy, candidiasis of mouth and esophagus, COPD, HTN admitted with sepsis and bacteremia 2/2 ESBL E coli UTI, and developed delirium. Bacteremia secondary to UTI, clinically improving, afebrile - WBC normalized on Ertapenem IV EOTD 03/17 - UA this admission showing turbid urine, nitrites, 3+ LE, 4+ bacteria, >30 WBC. - Broad spectrum coverage with Zosyn initiated on admission, was changed to ertapenem, then imipenem w/ cilastatin (to cover pseudomonas) then back to Ertapenem - 05/02 grew ESBL E. coli in BCx x2 and UCx; ertapenem started 05/04 plan for 14 day course. - continue IVF for NATALIA as below. - Repeat BCx negative at 5 days final. - Case Management aware and will be discharged to SNF - CXR on 05/02 without findings suggestive of pneumonia. CXR 05/05 with LLL subtle airspace opacities. CXR 05/08 with improving left basilar airspace opaci ties with residual indistinctness of the left phrenic angle, atelectasis versus pneumonia. - Continue to monitor respiratory status, fever checks, while admitted. - This admission patient was educated on proper urinary hygiene. - Awaiting placement Metabolic encephalopathy - With waxing and waning level of alertness, differentials include metabolic derangement, delirium 2/2 hospitalization in the elderly, infection. - VBG normal. Admitted with bacteremia sensitive to ertepenem, on Abx treatment since 05/04. - CT 05/02 without signs of CVA or other acute intracranial abnormality. - Likely 2/2 delirium from hospitalization. NATALIA: - Baseline Cr of ~1.1. - Cr 0.99->1.35-> 1.28 ->1.22 -> 1.13 with poor PO hydration, has been receiving NSS @ 80mL/hr - continue to monitor BMP, continuation oral hydration. - Continue to monitor input/output for proper renal function and urine formation. Atrial fibrillation with Rapid Ventricular Response - 05/04 patient was in AFib with RVR to 120s, given Lopressor 5mg IV x2 and resumed home dose Toprol XL with return to normal HR of 80s. - Was in AFib though with HR in the 80s for a total of about 12 hours; no history of in chart. Suspect patient may have had Paroxysmal AFib without symptoms which was exacerbated by her dehydration and sepsis while admitted and on cardiac monitoring. - Does not follow with a French Cord Binder, however was last seen in [address] Hanson for pacemaker placement. - Have started Eliquis 5mg BID here for AC. Patient already on metoprolol at home, this was being held due to soft BPs but have restarted. - Cardiology consulted and appreciate recs: pacemaker interrogated and this is single episode recorded of AFib; parameters adjusted. - Will need Cardiology follow up (Dr. Hanson) for her pacemaker and A. Fib following discharge. COPD - Continue home O2 3LNC as needed qHS. - As patient had some relief in sputum production and chest congestion with neb, some improvement in wheezing, will repeat x1. - Due to persistent wheezing and Hx. COPD have started Incruse Ellipta inhaler this admission. DM2 - A1c 6.6, goal of <7. - On Lantus 15u HS at home. - SSI initiated here with range 100 - 150, correction factor 25, INS:CHO 1:10. - Anticipate return to home regimen on discharge. Sinus dysfunction, s/p pacemaker - No palpitations, no bradycardia on admission. - Pacemaker interrogated, please see Cardiology note. HTN - Metoprolol succinate 100 mg PO AM, losartan 100 mg PO AM, HCTZ 25 mg PO AM, Nifedipine 60 mg PO AM [unconfirmed; per 09/2019 cardiac note]. - These medications were held on admission given normal systolic and borderline low diastolic BP. - Have restarted all home medications as above at this time. CAD - ASA and Simvastatin 20 per home regimen. Code Status: Full Code DVT ppx: Eliquis 5mg BID FEN/GI: Regular with SSI; this is because patient was not tolerating DM2 diet and requesting macaroni and cheese. Given poor intake for several days will allow for patient's request. Dispo: Med/Surg (2) Acute UTI (urinary tract infection): Admission and Anticipated Discharge Date Admission Date: May 02, 2020 Supervising Physician Co-Signing Physician Notes I personally examined the patient and verified all mackey points of history and exam, discussed case, and agree with decision making with Dr Garcias. no meaningful HPI or ROS obtainable. was trying to get out of bed, then ROTOR CASTING MACHINE SETUP OPERATOR assisted her to safety vitals noted nad heent nc at mmm breathing unlabored no accessory muscles good effort skin no rashes no pallor or icterus ESBL UTI/Bacteremia/sepsis - stable to overall improved - just delirium causing waxing and waning of clinical picture - likely from being in hospital so many days + age + infection did well on ertapenem - finished 14 days today. for SNF tomorrow. otherwise as above Subjective Doing okay this morning. She was sleeping in the morning and at lunch today. Per nursing she had been up through the night. Son was in the room and he was updated on the plan moving forward. He had no questions after our discussion about his mothers bacteremia and delirium. Review of Systems Review of Systems: unable to obtain due to confusion Physical Exam Constitutional: well developed and well nourished; no acute distress ENMT: external ear and nose normal, oropharynx normal Neck: normal visual inspection Respiratory: normal respiratory effort, lungs clear to auscultation Cardiovascular: RRR, no murmur, no edema Gastrointestinal (Abdomen): normal bowel sounds, soft, nontender, no hepatosplenomegaly Skin: no rashes, warm and dry Neurologic: Speech / Cognition: + abnormal speech (somewhat garbled ) Results & Data Results & Data ([facility]) Vital Signs (Past 12 Hours) Vital Signs Temp Pulse Pulse Resp BP Pulse Ox 05/17/20 12:36 75 05/17/20 07:37 37.0 C 78 18 109/73 93 05/17/20 04:40 37.1 C 78 20 109/77 96 CBC Results Results Complete Blood Count Results: RBC 3.51 M/uL (4.2-5.4) L 05/17/20 WBC 9.26 K/uL (4.8-10.8) 05/17/20 Hgb 10.7 g/dL (12.0-16.0) L 05/17/20 Hct 32.8 % (37-47) L 05/17/20 Plt Count 422 K/uL (130-400) H 05/17/20 Chemistry (BMP) Results BMP Results: Sodium 139 mmol/L (136-145) 05/17/20 Potassium 3.5 mmol/L (3.5-5.1) 05/17/20 Chloride 100 mmol/L (98-107) 05/17/20 BUN 20 mg/dl (7-18) H 05/17/20 Creatinine 1.13 mg/dl (0.6-1.2) 05/17/20 Glucose 129 mg/dl (70-99) H 05/17/20 Resident Activity Tracking Resident Involvement: Resident Care Provided Care Provided: Adult [facility]
--- NOTE | 2020-05-17 17:44 | Billing Data ---
Date of Service May 17, 2020 Coding Level of Care Code 41735 Subseq Hosp Care Lvl 2
[2020-05-17] MEDS: ERTAPENEM SODIUM 1,000 MG in SODIUM CHLORIDE 0.9% 50 ML IV SCH (17:51)
--- NOTE | 2020-05-17 18:11 | Communication Note ---
Date of Service: May 17, 2020 *intermittent mild hypercalcemia noted - but has been quite nonspecific and only to low levels. outpt f/u - and then would anticipate further w/u if persistent or rises would be most appropriate
[2020-05-17] MEDS: PSYLLIUM 58.6% POWDER PACKET PO SCH (22:00)
[2020-05-18] MEDS: NIFEdipine EXTENDED REL 30 MG TABCR PO SCH (07:59)
[2020-05-18] MEDS: METOPROLOL SUCC 50MG EXT REL TAB PO SCH (08:00)
[2020-05-18] MEDS: LOSARTAN POTASSIUM 50 MG TAB PO SCH (08:00)
[2020-05-18] MEDS: SIMVASTATIN 40 MG TAB PO SCH (08:00)
[2020-05-18] MEDS: hydroCHLOROthiazide 25 MG TAB PO SCH (08:03)
[2020-05-18] MEDS: CALCIUM 600MG + VIT D 400 IU TAB PO SCH (08:04)
[2020-05-18] MEDS: CEROVITE ADV FORMULA TAB PO SCH ×2 (08:04→17:59)
[2020-05-18] MEDS: APIXABAN 5 MG TABLET PO SCH ×2 (08:04→21:03)
[2020-05-18] MEDS: FLUTICASONE/VILANTEROL 200/25MCG 14 PUFFS/INHALER INH SCH (08:04)
[2020-05-18] MEDS: UMECLIDINIUM BROMIDE 62.5MCG/BLISTER 7 PUFFS/INHALER INH SCH (08:05)
[2020-05-18] MEDS: DOCUSATE SODIUM 100 MG CAP PO SCH (08:21)
[2020-05-18] MEDS: INSULIN ASPART 100 UNITS/ML 3 ML PEN SC SCH ×4 (08:21→21:02)
[2020-05-18 08:50] LABS: Hematocrit (blood only) 34.2 % (37-47); Hemoglobin 11.3 g/dL (12.0-16.0); Mean Corpuscular Volume 93.7 fL (80-100); Mean Platelet Volume 9.2 fL (7.4-10.4); Platelet Count 395 K/uL (130-400); RDW Coefficient of Variation 12.6 % (11.5-14.5); RDW Standard Deviation 42.5 fL (36.4-46.3); Red Blood Count 3.65 M/uL (4.2-5.4); White Blood Count 9.26 K/uL (4.8-10.8)
[2020-05-18 09:19] LABS: BUN Creatinine Ratio 18.9 (10-20); Calcium 10.1 mg/dl (8.5-10.1); Creatinine Clr Calc Pharmacy 36.8 ml/min; Est GFR (African American) 52.6; Est GFR (Non-African American) 45.4; Potassium 3.6 mmol/L (3.5-5.1)
--- NOTE | 2020-05-18 15:31 | Hospitalist Progress Note ---
Date of Service May 18, 2020 Assessment & Plan (1) Bacteremia due to Gram-negative bacteria: 84 yo F with hx CKD, sinus node dysfunction s/p pacemaker, DM2 on insulin therapy, candidiasis of mouth and esophagus, COPD, HTN, admitted with sepsis and bacteremia 2/2 ESBL E coli UTI, and developed delirium. Bacteremia secondary to UTI, clinically improving, afebrile - completed 14 day course course of Ertapenem IV EOTD 03/17 - Repeat BCx negative at 5 days final. - This admission patient was educated on proper urinary hygiene. - Awaiting placement Metabolic encephalopathy - likely from infection with possible hospital induced delirium - With waxing and waning level of alertness, - CT 05/02 without signs of CVA or other acute intracranial abnormality. - electrolytes normal NATALIA: - Baseline Cr of ~1.1. - Cr 0.99->1.35-> 1.28 ->1.22 -> 1.13 -> 1.1 with poor PO hydration, did receive IVF - continue to monitor BMP, continuation oral hydration. - Continue to monitor input/output for proper renal function and urine formation. Atrial fibrillation with Rapid Ventricular Response - 05/04 patient was in AFib with RVR to 120s, given Lopressor 5mg IV x2 and resumed home dose Toprol XL with return to normal HR of 80s. - Was in AFib though with HR in the 80s for a total of about 12 hours; no history of in chart. Suspect patient may have had Paroxysmal AFib without symptoms which was exacerbated by her dehydration and sepsis while admitted and on cardiac monitoring. - Does not follow with a Telephone Order Clerk Room Service, however was last seen in [address] Hanson for pacemaker placement. - Have started Eliquis 5mg BID here for AC. - continue home metoprolol - Cardiology consulted and appreciate recs: pacemaker interrogated and this is single episode recorded of AFib; parameters adjusted. - Will need Cardiology follow up (Dr. Hanson) for her pacemaker and A. Fib following discharge. COPD - Continue home O2 3LNC as needed qHS. - symptoms have improved over hospital course - Due to persistent wheezing and Hx. COPD have started Incruse Ellipta inhaler this admission. DM2 - A1c 6.6, goal of <7. - On Lantus 15u HS at home. - SSI initiated here with range 100 - 150, correction factor 25, INS:CHO 1:10. - Anticipate return to home regimen on discharge. Sinus dysfunction, s/p pacemaker - No palpitations, no bradycardia on admission. - Pacemaker interrogated, please see Cardiology note. HTN - Metoprolol succinate 100 mg PO AM, losartan 100 mg PO AM, HCTZ 25 mg PO AM, Nifedipine 60 mg PO AM [unconfirmed; per 09/2019 cardiac note]. - These medications were held on admission given normal systolic and borderline low diastolic BP. - Have restarted all home medications as above at this time. CAD - ASA and Simvastatin 20 per home regimen. Code Status: Full Code DVT ppx: Eliquis 5mg BID FEN/GI: Regular with SSI; this is because patient was not tolerating DM2 diet and requesting macaroni and cheese. Given poor intake for several days will allow for patient's request. Dispo: Med/Surg (2) Acute UTI (urinary tract infection): Admission and Anticipated Discharge Date Admission Date: May 02, 2020 Supervising Physician Co-Signing Physician Notes Resident Physician Supervision Note: I independently interviewed and examined the patient and verified the mackey history and physical, reviewed labs and image studies, discussed the case with the resident Dr. Garcias and agree with the findings and care plan. Subjective Doing okay this morning. She was more lucid for me, she knew where she was, her name, and the year. At points in the conversation she will get confused and speaks in a somewhat garbled voice but is able to be reoriented. Review of Systems Review of Systems: unable to obtain due to confusion Physical Exam Constitutional: well developed and well nourished; no acute distress ENMT: external ear and nose normal, oropharynx normal Neck: normal visual inspection Respiratory: normal respiratory effort, lungs clear to auscultation Cardiovascular: RRR, no murmur, no edema Gastrointestinal (Abdomen): normal bowel sounds, soft, nontender, no hepatosplenomegaly Skin: no rashes, warm and dry Neurologic: Speech / Cognition: + abnormal speech (somewhat garbled ) Psychiatric: Orientation: alert Affect: euthymic affect Results & Data Results & Data ([facility]) Vital Signs (Past 12 Hours) Vital Signs Temp Pulse Resp BP Pulse Ox 05/18/20 15:17 36.9 C 66 20 123/70 97 05/18/20 11:16 36.6 C 65 20 126/73 98 05/18/20 07:27 37.0 C 65 18 133/72 99 05/18/20 04:38 36.6 C 64 18 138/58 L 98 CBC Results Results Complete Blood Count Results: RBC 3.26 M/uL (4.2-5.4) L 05/19/20 WBC 10.29 K/uL (4.8-10.8) 05/19/20 Hgb 10.0 g/dL (12.0-16.0) L 05/19/20 Hct 30.5 % (37-47) L 05/19/20 Plt Count 372 K/uL (130-400) 05/19/20 Chemistry (BMP) Results BMP Results: Sodium 139 mmol/L (136-145) 05/19/20 Potassium mmol/L (3.5-5.1) 05/19/20 Chloride 100 mmol/L (98-107) 05/19/20 BUN 28 mg/dl (7-18) H 05/19/20 Creatinine 1.21 mg/dl (0.6-1.2) H 05/19/20 Glucose 114 mg/dl (70-99) H 05/19/20 Resident Activity Tracking Resident Involvement: Resident Care Provided Care Provided: Adult Hospital Medicine
[2020-05-18] MEDS: PSYLLIUM 58.6% POWDER PACKET PO SCH (21:04)
[2020-05-19 06:28] LABS: Basophils # (auto) 0.05 K/uL (0-0.2); Basophils % (auto) 0.5 %; Eosinophils % (auto) 1.9 %; Hematocrit (blood only) 30.5 % (37-47); Immature Granulocytes # (auto) 0.03 K/uL (0.00-0.02); Immature Granulocytes % (auto) 0.3 %; Lymphocytes # (auto) 2.19 K/uL (1.2-3.4); Lymphocytes % (auto) 21.3 %; Mean Corpuscular Hemoglobin 30.7 pg (25-34); Mean Corpuscular Hgb Conc 32.8 g/dL (32-36); Mean Corpuscular Volume 93.6 fL (80-100); Mean Platelet Volume 9.6 fL (7.4-10.4); Monocytes # (auto) 1.36 K/uL (0.11-0.59); Monocytes % (auto) 13.2 %; Neutrophils # (auto) 6.46 K/uL (1.4-6.5); Neutrophils % (auto) 62.8 %; Platelet Count 372 K/uL (130-400); RDW Coefficient of Variation 12.9 % (11.5-14.5); RDW Standard Deviation 43.5 fL (36.4-46.3); Red Blood Count 3.26 M/uL (4.2-5.4); White Blood Count 10.29 K/uL (4.8-10.8)
[2020-05-19 07:12] LABS: BUN Creatinine Ratio 23.1 (10-20); Creatinine Clr Calc Pharmacy 33.5 ml/min; Est GFR (African American) 46.9; Est GFR (Non-African American) 40.5
[2020-05-19] MEDS: UMECLIDINIUM BROMIDE 62.5MCG/BLISTER 7 PUFFS/INHALER INH SCH (07:35)
[2020-05-19] MEDS: FLUTICASONE/VILANTEROL 200/25MCG 14 PUFFS/INHALER INH SCH (07:35)
[2020-05-19] MEDS: APIXABAN 5 MG TABLET PO SCH (07:36)
[2020-05-19] MEDS: CEROVITE ADV FORMULA TAB PO SCH (07:36)
[2020-05-19] MEDS: CALCIUM 600MG + VIT D 400 IU TAB PO SCH (07:36)
[2020-05-19] MEDS: hydroCHLOROthiazide 25 MG TAB PO SCH (07:36)
[2020-05-19] MEDS: SIMVASTATIN 40 MG TAB PO SCH (07:36)
[2020-05-19] MEDS: METOPROLOL SUCC 50MG EXT REL TAB PO SCH (07:37)
[2020-05-19] MEDS: NIFEdipine EXTENDED REL 30 MG TABCR PO SCH (07:37)
[2020-05-19] MEDS: LOSARTAN POTASSIUM 50 MG TAB PO SCH (07:37)
[2020-05-19] MEDS: INSULIN ASPART 100 UNITS/ML 3 ML PEN SC SCH (09:15)
--- NOTE | 2020-05-19 09:52 | Discharge Summary ---
Date of Service May 19, 2020 Admission HPI Per Admitting Provider The patient is an 84-year-old female resident of [facility], with a past medical history including pneumonia, urinary tract infection, hyperlipidemia, diabetes mellitus, CKD stage III, asthma, COPD, hypertension, history of total hip replacement and candidiasis of mouth and esophagus. The patient was started on Cipro for UTI yesterday by her doctor at [facility], however, the patient developed a temperature to 102.5 and became more confused, and she was sent to the emergency department for assessment. In the ED, work-up included laboratories and imaging, with a significantly abnormal urinalysis, and borderl ine low blood pressure, and the patient was referred for evaluation for admission for sepsis due to UTI. She did report a single episode of urinary incontinence the day before. Admission Exam Per Admitting Provider The patient is awake, alert and oriented 2, well developed and well nourished, normocephalic and atraumatic, lying in bed and in no acute distress. HEENT--PERRL, EOMI, mucous membranes and oropharynx dry. Neck--supple. No JVD. No bruits. Thyroid normal, trachea midline, no adenopathy. Heart--normal S1 and S2. No murmurs, rubs or gallops. Lungs--clear bilaterally, no respiratory distress, no accessory muscle use. Abdomen--normal bowel sounds and soft. Nontender. Nondistended. Extremities--no cyanosis or clubbing. No edema. There are good distal pulses b/l. Dermatologic--normal skin turgor, normal color, no abnormal lymph nodes, no rash. Neurologic--cranial nerves II through XII grossly intact. Rheumatologic--normal range of motion. Psychiatric--normal affect. Principal Diagnosis bacteremia, resolve delirium Discharge Exam Constitutional well developed and well nourished; no acute distress ENMT external ear and nose normal, oropharynx normal Neck normal visual inspection Respiratory normal respiratory effort, lungs clear to auscultation Cardiovascular RRR, no murmur, no edema Gastrointestinal (Abdomen) normal bowel sounds, soft, nontender, no hepatosplenomegaly Skin no rashes, warm and dry Neurologic Speech / Cognition: + abnormal speech (somewhat garbled ) Psychiatric Orientation: alert Affect: euthymic affect Discharge Data Allergies Allergy/AdvReac Type Severity Reaction Status Date / Time No Known Drug Allergies Allergy Verified 09/30/19 15:24 Consultations 05/02/20 12:48 Consult Case Management - Discharge Planning Routine 05/04/20 15:12 Consult Cardiology Routine Ordered Studies 05/02/20 08:51 CT head/brain wo con Stat Hospital Course (1) Bacteremia due to Gram-negative bacteria: 84 yo F with hx CKD, sinus node dysfunction s/p pacemaker, DM2 on insulin therapy, candidiasis of mouth and esophagus, COPD, HTN, admitted with sepsis and bacteremia 2/2 ESBL E coli UTI, and developed delirium. Bacteremia secondary to UTI - completed 14 day course course of Ertapenem IV EOTD 03/17 - Repeat BCx negative final. Metabolic encephalopathy sec to bacteremia due to UTI - On admission - VBG normal. electrolytes normal. CT 05/02 without signs of CVA or other acute intracranial abnormality. - bacteremia sensitive to ertepenem, completed course as above - Mentation back to baseline on discharge NATALIA: - Baseline Cr of ~1.1. - Improved with IVF and oral hydration. Atrial fibrillation with Rapid Ventricular Response - 05/04 patient was in AFib with RVR to 120s, given Lopressor 5mg IV x2 and resumed home dose Toprol XL with return to normal HR of 80s. - Was in AFib though with HR in the 80s for a total of about 12 hours; no history of in chart. Suspect patient may have had Paroxysmal AFib without symptoms which was exacerbated by her dehydration and sepsis while admitted and on cardiac monitoring. - Does not follow with a Molding Plasterer, however was last seen in [address] Angela alonzo for pacemaker placement. - Have started Eliquis 5mg BID here for AC. - continue home metoprolol - Cardiology consulted and appreciate recs: pacemaker interrogated and this is single episode recorded of AFib; parameters adjusted. - Cardiology follow up (Dr. Hanson) for her pacemaker and A. Fib following discharge. COPD - symptoms have improved over hospital course - Due to persistent wheezing and Hx. COPD have started Incruse Ellipta inhaler this admission. Noctural hypoxia - Continue home O2 3LNC as needed qHS. DM2 - A1c 6.6, goal of <7. - On Lantus 15u HS at home. Sinus dysfunction, s/p pacemaker - No palpitations, no bradycardia on admission. - Pacemaker interrogated, please see Cardiology note. HTN - Metoprolol succinate 100 mg PO AM, losartan 100 mg PO AM, HCTZ 25 mg PO AM, Nifedipine 60 mg PO AM [unconfirmed; per 09/2019 cardiac note]. - These medications were held on admission given normal systolic and borderline low diastolic BP. - Have restarted all home medications later and tolerated well CAD - ASA and Simvastatin 20 per home regimen. Total Time Total Time Spent Total Time Spent (In Minutes): see attending attestation Discharge Plan Discharge Items Patient Disposition: Transfer [facility] Reason For Visit: SEPSIS DUE TO UTI Discharge Diagnosis: bacteremia secondary to urinary tract infection Activity: Per Instructions section Non-emergency contact: Primary Care Provider Call non-emergency contact if: you have any medication questions, your symptoms worsen and your temperature is above 101 Follow-up/Referrals: Thomas Hanson MD [Physician] - (Please call for follow up in one month with Dr. Hanson.) Indie Vinos [Primary Care Provider] - Diet: Carb Consistent or DM2 Addtl Attending Provider Instructions: 84 yo F with hx. CKD, sinus node dysfunction s/p pacemaker, DM2 on insulin therapy, candidiasis of mouth and esophagus, COPD, HTN, admitted with sepsis and bacteremia 2/2 ESBL E coli UTI, and developed delirium that is improving. Bacteremia secondary to UTI, afebrile, hemodynamically stable - completed 14 day course course of Ertapenem IV EOTD 03/17 - Repeat BCx negative at 5 days final. - This admission patient was educated on proper urinary hygiene. Delirium - With waxing and waning level of alertness, likely 2/2 hospitalization in the elderly, and infection. - VBG normal. Admitted with bacteremia sensitive to Ertepenem, completed course as above - CT 05/02 without signs of CVA or other acute intracranial abnormality. - electrolytes normal NATALIA: - Baseline Cr of ~1.1. - Cr 0.99->1.35-> 1.28 ->1.22 -> 1.13 -> 1.1 with poor PO hydration, did receive IVF initially - continue to monitor BMP twice weekly, continuation of oral hydration. - Continue to monitor input/output for proper renal function and urine formation. Atrial fibrillation with Rapid Ventricular Response - 05/04 patient was in AFib with RVR to 120s, given Lopressor 5mg IV x2 and resumed home dose Toprol XL with return to normal HR of 80s. - Was in AFib though with HR in the 80s for a total of about 12 hours; no history of in chart. Suspect patient may have had Paroxysmal AFib without symptoms which was exacerbated by her dehydration and sepsis - Does not follow with a Molding Plasterer, however was last seen in [address] Hanson for pacemaker placement. - Have started Eliquis 5mg BID here for AC. - continue home metoprolol - Cardiology consulted: pacemaker interrogated and this is single episode recorded of AFib; parameters adjusted. - Will need Cardiology follow up (Dr. Hanson) for her pacemaker and A. Fib following discharge. COPD - Continue home O2 3LNC as needed. - symptoms have improved over hospital course - Due to persistent wheezing and Hx. COPD have started Incruse Ellipta inhaler this admission. DM2 - A1c 6.6, goal of <7. - On Lantus 15u HS at home. - SSI initiated here with range 100 - 150, correction factor 25, INS:CHO 1:10. - Anticipate return to home regimen on discharge. Sinus dysfunction, s/p pacemaker - No palpitations, no bradycardia on admission. - Pacemaker interrogated, please see Cardiology note. HTN - Metoprolol succinate 100 mg PO AM, losartan 100 mg PO AM, HCTZ 25 mg PO AM, Nifedipine 60 mg PO AM [unconfirmed; per 09/2019 cardiac note]. - These medications were held on admission given normal systolic and borderline low diastolic BP. - Have restarted all home medications as above at this time. CAD - ASA and Simvastatin 20 per home regimen. Pending Studies at Discharge: No Stand-Alone Forms: My [facility] Skilled Items Patient informed of condition?: Yes DNR: No Discharge Level of Care: Skilled Communicable Disease: No (ESBL E. coli UTI) Discharge Prognosis: Improving Lines: US Guided Peripheral IV Urinary Catheter: No Medications and DC Order Prescriptions: New Eliquis 5 mg Tablet 5 mg PO BID 30 Days Qty: 60 RF: 0 Incruse Ellipta 62.5 mcg/actuation Blister With Device 1 puff inhalation DAILY 30 Days Qty: 1 RF: 0 Continued potassium chloride 10 mEq tablet extended release 10 meq PO QAM RF: 0 multivitamin Tablet 1 tab PO QAM RF: 0 metoprolol succinate 100 mg tablet extended release 24 hr 100 mg PO QAM RF: 0 aspirin 81 mg Tablet,Delayed Release (Dr/Ec) 81 mg PO QAM RF: 0 nifedipine 60 mg tablet extended release 24hr 60 mg PO QAM RF: 0 simvastatin 20 mg tablet 20 mg PO QAM RF: 0 docusate sodium [Colace] 100 mg Capsule 100 mg PO QAM RF: 0 hydrochlorothiazide 25 mg tablet 25 mg PO QAM RF: 0 fluoxetine 20 mg capsule 20 mg PO BID RF: 0 calcium carbonate-vitamin D3 [Oyster Shell Calcium-Vit D3] 500 mg(1,250mg) - 200 unit Tablet 1 tab PO QAM RF: 0 omega 3-vsl-ksg-fish oil [Fish Oil] 1,000 mg (120 mg-180 mg) Capsule 1 cap PO BIDM RF: 0 PreserVision AREDS-2 [id number] [id number]-mg Capsule 1 tab PO BIDM RF: 0 Metamucil 3.4 gram/5.4 gram Powder 1 tbsp PO PM RF: 0 Lantus Solostar U-100 Insulin 100 unit/mL (3 mL) Insulin Pen 15 unit SC HS Qty: 15 RF: 0 nystatin-triamcinolone 100,000-0.1 unit/g-% cream 1 applic TOPICAL UD RF: 0 losartan 100 mg tablet 100 mg PO QAM RF: 0 acetaminophen [Tylenol Extra Strength] 500 mg Tablet 500 - 1,000 mg PO DAILY MDD 4 GRAMS/24 HOURS PRN (Reason: Pain) RF: 0 fluticasone propion-salmeterol [Wixela Inhub] 500-50 mcg/dose Blister With Device 1 inh INHALATION BID RF: 0 ipratropium-albuterol 0.5 mg-3 mg(2.5 mg base)/3 mL solution for nebulization 3 ml NEB QID PRN (Reason: Shortness Of Breath Or Wheezing) RF: 0 insulin aspart U-100 [Novolog Flexpen U-100 Insulin] 100 unit/mL (3 mL) insulin pen 0 units SC ACHS RF: 0 Discontinued ciprofloxacin HCl 500 mg tablet 500 mg PO BID RF: 0 amoxicillin 500 mg Capsule 2,000 mg PO ONCE PRN (Reason: 1 HOUR PRIOR TO DENTAL APPT.) RF: 0 Discharge Orders: Discharge Order (Routine); Ordered 07/28/20 Ordered By: Josh Garcias Admission Data Admit Date/Time: 05/02/20 10:50 Attending Provider: Harika Torres Admit Provider: Fabrice Desai Primary Care Provider: Eliceo Nelson,[facility], [facility] Other Providers: Fabrice Desai ; Thomas Hanson ; Samara Gonzalez at [place] ; Aly Flanagan ; [place] ; [place] Other Interventions: Discharge Summary Assessment (RN) Last Done: 05/19/20 09:00 DC Date/Time DO NOT enter until pt leaves facility: 05/19/20 12:45 Supervising Physician Co-Signing Physician Notes Resident Physician Supervision Note: I independently interviewed and examined the patient and verified the mackey history and physical, reviewed labs and image studies, discussed the case with the resident Dr. Garcias and agree with the findings and care plan. CBC Results Results Complete Blood Count Results: RBC 3.26 M/uL (4.2-5.4) L 05/19/20 WBC 10.29 K/uL (4.8-10.8) 05/19/20 Hgb 10.0 g/dL (12.0-16.0) L 05/19/20 Hct 30.5 % (37-47) L 05/19/20 Plt Count 372 K/uL (130-400) 05/19/20 Results BMP Results: Sodium 139 mmol/L (136-145) 05/19/20 Potassium 3.3 mmol/L (3.5-5.1) L 05/19/20 Chloride 100 mmol/L (98-107) 05/19/20 BUN 28 mg/dl (7-18) H 05/19/20 Creatinine 1.21 mg/dl (0.6-1.2) H 05/19/20 Glucose 114 mg/dl (70-99) H 05/19/20 Resident Activity Tracking Resident Involvement: Resident Care Provided Care Provided: Adult [facility] Medicine
== END 2020-05-19 12:45 | DRG 871 ==
LOC: ED 08:36 → SUATTDRO 10:50 → 2W 10:50

== ENCOUNTER 2021-02-15 21:05 | Inpatient (IN) ==
[2021-02-15] MEDS ORDERED: ONDANSETRON INJ 2 MG/ML 2 ML VIAL IV STA (21:11)
--- NOTE | 2021-02-15 21:17 | Emergency Department Note ---
Impression & Plan Acute pyelonephritis, Fever ED Provider Note NAME: GLENNA KELLEY AGE: 85 SEX: F : 1935 ARRIVES VIA: Ambulance INFORMANT: Patient, prehospital personnel ED PROVIDER(S): Luiz Carmona DO CHIEF COMPLAINT: Cough HPI: The patient is an 85-year-old female who resides at a personal fci who presented to the emergency department this evening for fever and cough. The patient had Covid vaccination in November of this year. She was also tested for Covid earlier this month and was negative. The patient states that she has had difficulty breathing and cough throughout the day. Upon arrival the patient was complaining of nausea. She had 2 episodes of emesis while I was in the room. The patient has no hematemesis. She denies having any lower extremity swelling greater than normal but she does complain of some epigastric discomfort. She denies having any chest pain. She denies having any rectal bleeding. She st ates her shortness of breath is worsened with any exertion. She states her cough has been productive throughout the day. The patient normally wears oxygen only at night. Her saturation was noted to be greater than 90 by the prehospital personnel and when she arrived to the emergency department she was on room air. She states the supplemental oxygen did help her symptoms. She states her symptoms are moderate to severe earlier but improved somewhat since arrival. ROS: See above HPI for pertinent positives & negatives. A total of 10 systems reviewed and were otherwise negative. PAST MEDICAL HISTORY: See Below PAST SURGICAL HISTORY: See Below FAMILY HISTORY: See Below SOCIAL HISTORY: See Below HOME MEDICATIONS: See Below ALLERGIES: See Below VITALS: See Below PHYSICAL EXAMINATION: GENERAL: The patient is awake and alert. The patient is somewhat anxious appe aring. EYES: The conjunctivae are clear. The pupils are round and reactive. EARS, NOSE, MOUTH AND THROAT: The nose is without any evidence of any deformity. NECK: The neck is nontender and supple. RESPIRATORY: Diminished breath sounds are noted throughout. There were rales at the right base. There is no tachypnea or conversational dyspnea. CARDIOVASCULAR: Regular rate and rhythm noted there no murmurs rubs or gallops normal S1 normal S2. GASTROINTESTINAL: The abdomen is soft. Abdomen is nontender. MUSCULOSKELETAL/EXTREMITIES: There is no evidence of gross deformity full range of motion is noted in the hips and shoulders. SKIN: Pedal edema was noted bilaterally. NEUROLOGIC: Patient is awake alert and oriented to person place and situation. MEDICAL DECISION MAKING: The patient is an 85-year-old female who presented to the emergency department by ambulance for an evaluation of cough and fever. The patient's chest x-ray was not convincingly consistent with pneumonia although her physical exam appear to be consistent with a pulmonary infection. She was treated with Zosyn in the emergency department. I discussed the patient's laboratory and radiographic studies with her and her family member. She was found to have signs of urinary tract infection on urinalysis. It is likely this is the source of the patient's fever. The patient has a history of gram-negative bacteremia in the past. For this reason I discussed her case with the on-call [facility] hospitalist. He is agreed to evaluate the patient in the emergency department for further management and disposition. The patient was feeling much better on subsequent reevaluation. Triage Nursing notes reviewed. Prior medical records reviewed Vital Signs: reviewed and remarkable for elevated blood pressure. Differential diagnosis: Viral syndrome, otitis, pharyngitis, pneumonia, influenza, meningitis, urinary tract infection, sepsis, bacteremia, as well as other pathologies. ER treatment provided: See below Diagnostics interpreted by me: ECG: EKG was obtained in the emergency department. My interpretation is atrial paced ventricular sensed rhythm at 72 bpm. There were no ewiiaapaayp beats. Left bundle branch block pattern was appreciated. This was compared to a tracing from June 252019. A left bundle branch block pattern is new compared to the previous tracing. Cardiac Monitoring: An order was placed for continuous cardiac monitoring. The monitor shows a rate of 85 bpm with paced rhythm. Laboratory studies: As stated above and show below. Imaging studies: See below Consultation(s): I discussed this case with Dr. Soto. He is agreed to evaluate the patient in the emergency department for further management and disposition. Past Med/Surg History Medical History (Updated 02/16/21 @ 00:17 by Luiz Carmona DO) Asthma Essential (primary) hypertension Frozen shoulder Hyperlipidemia Pacemaker Surgical History H/O bilateral cataract extraction History of left hip replacement History of right hip replacement History of total abdominal hysterectomy and bilateral salpingo-oophorectomy Family History Father Cancer laryngeal (smoker) Mother Ovarian cancer Social History Smoking Status: Unknown if ever smoked Tobacco Type: Cigarettes Cigarettes Per Day: <1/2 ppd x 40 years; Second Hand Exposure: No; Hx Alcohol Use: No Hx Substance Use: No Preferred Language: Nigerian Communication Ability: Effective Representative Required: No Beliefs That Will Affect Care: None marital status: Current Living Situation: Personal Care Facility Current Living Situation Comment: [facility] current occupational status: 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) other: 2 daughters, 1 son Feels Safe at Home: Yes Assistive Devices: Oxygen - Continuous Allergies Allergies Allergy/AdvReac Type Severity Reaction Status Date / Time No Known Allergies Allergy Verified 02/15/21 21:15 Home Meds Home Medications Medication Instructions Recorded Confirmed PreserVision AREDS-2 1 tab PO BID 02/02/19 02/15/21 aspirin 81 mg PO QAM 02/02/19 02/15/21 calcium carbonate-vitamin D3 1 tab PO QAM 02/02/19 02/15/21 [Oyster Shell Calcium-Vit D3] docusate sodium [Colace] 100 mg PO QAM 02/02/19 02/15/21 fluoxetine 20 mg PO BID 02/02/19 02/15/21 metoprolol succinate 100 mg PO QAM 02/02/19 02/15/21 multivitamin 1 tab PO QAM 02/02/19 02/15/21 nifedipine 60 mg PO QAM 02/02/19 02/15/21 omega 7-fpi-ajb-fish oil [Fish Oil] 1 cap PO BID 02/02/19 02/15/21 simvastatin 20 mg PO HS 02/02/19 02/15/21 losartan 100 mg PO DAILY 03/11/19 02/15/21 potassium chloride 10 mEq 10 meq PO DAILY tab 06/14/19 02/15/21 tablet,extended release acetaminophen [Tylenol Extra 500 - 1,000 mg PO DAILY PRN MDD 3 07/26/19 02/15/21 Strength] GRAMS/24 HOURS ipratropium-albuterol 3 ml NEB QID PRN 07/26/19 02/15/21 nystatin-triamcinolone 1 applic TOPICAL UD PRN 05/02/20 02/15/21 Lantus Solostar U-100 Insulin 18 unit SC HS 06/11/20 02/15/21 apixaban [Eliquis] 5 mg PO BID 06/25/20 02/15/21 famotidine 20 mg tablet 20 mg PO DAILY PRN tab 06/30/20 02/15/21 umeclidinium 62.5 mcg/actuation 1 inh INHALATION QAM 01/05/21 02/15/21 blister powder for inhalation acetaminophen [Tylenol Extra 500 mg PO BID MDD 3 GRAM/24 HOURS 02/15/21 02/15/21 Strength] amoxicillin 2,000 mg PO DIRECTED PRN 02/15/21 02/15/21 dextromethorphan-guaifenesin 1 tab-cap PO DIRECTED PRN 02/15/21 02/15/21 [Coricidin HBP Chest Easton-Cough] docusate sodium [Doc-Q-Lace] 100 mg PO DAILY PRN 02/15/21 02/15/21 fluticasone propion-salmeterol 1 inh INHALATION BID 02/15/21 02/15/21 [Wixela Inhub] menthol-zinc oxide [Calmoseptine] 1 applic TOPICAL DIRECTED PRN 02/15/21 02/15/21 omeprazole 40 mg PO QAM 02/15/21 02/15/21 psyllium husk [Metamucil] 1 tbsp PO DAILY 02/15/21 02/15/21 Results & Data (ED) Vital Signs Vital Signs - 24 hr 02/15/21 21:14 02/15/21 21:20 02/15/21 22:07 Temperature 38.5 C H Temperature Source Oral Pulse Rate 60 60 Pulse Rate from SpO2 Sensor 60 Pulse Rhythm Regular Respiratory Rate 21 20 20 Respiratory Effort / Characteristics Non-Labored Spontaneous Short of Breath Respiratory Depth Normal Respiratory Pattern Regular Blood Pressure 206/77 H 206/77 H Blood Pressure Mean 120 120 Blood Pressure Position Lying Pulse Oximetry 95 97 96 Oxygen Delivery Method Room Air Room Air Sepsis Recent Fever Within 48 Hours Yes Sepsis New/Unexplained Change in Mental Status N/A Sepsis Action Taken by Nursing Physician Notified 02/15/21 22:53 02/15/21 22:56 02/15/21 23:00 Temperature 37.3 C Temperature Source Oral Pulse Rate 83 79 Pulse Rate from SpO2 Sensor 82 84 Pulse Rhythm Respiratory Rate 22 23 Respiratory Effort / Characteristics Respiratory Depth Respiratory Pattern Blood Pressure 178/98 H Blood Pressure Mean 124 Blood Pressure Position Pulse Oximetry 94 92 Oxygen Delivery Method Sepsis Recent Fever Within 48 Hours Sepsis New/Unexplained Change in Mental Status Sepsis Action Taken by Nursing 02/15/21 23:30 02/16/21 00:00 02/16/21 00:23 Temperature Temperature Source Pulse Rate 77 76 83 Pulse Rate from SpO2 Sensor 88 75 84 Pulse Rhythm Respiratory Rate 15 20 24 Respiratory Effort / Characteristics Respiratory Depth Respiratory Pattern Blood Pressure Blood Pressure Mean Blood Pressure Position Pulse Oximetry 92 92 95 Oxygen Delivery Method Sepsis Recent Fever Within 48 Hours Sepsis New/Unexplained Change in Mental Status Sepsis Action Taken by [facility] Medications Current Medication List: was personally reviewed by me Laboratory Data Attestation: I reviewed the patient's lab results. Result diagrams: 02/15/21 21:37 02/15/21 21:37 Lab Results 02/15/21 02/15/21 02/15/21 Range/Units 21:37 21:37 21:37 WBC 17.00 H (4.8-10.8) K/uL RBC 4.01 L (4.2-5.4) M/uL Hgb 12.4 (12.0-16.0) g/dL Hct 37.0 (37-47) % MCV 92.3 (80-100) fL MCH 30.9 (25-34) pg MCHC 33.5 (32-36) g/dL RDW Std Deviation 43.4 (36.4-46.3) fL RDW Coeff of Namrata 12.8 (11.5-14.5) % Plt Count 202 (130-400) K/uL MPV 8.9 (7.4-10.4) fL Immature Gran % (Auto) 0.2 % Neut % (Auto) 82.7 % Lymph % (Auto) 8.2 % [place] % (Auto) 6.8 % Eos % (Auto) 1.9 % Baso % (Auto) 0.2 % Neut # (Auto) 14.07 H (1.4-6.5) K/uL Lymph # (Auto) 1.39 (1.2-3.4) K/uL [place] # (Auto) 1.15 H (0.11-0.59) K/uL Eos # (Auto) 0.32 (0-0.5) K/uL Baso # (Auto) 0.03 (0-0.2) K/uL Immature Gran # (Auto) 0.04 H (0.00-0.02) K/uL PT 10.2 (9.0-12.0) Seconds INR 1.0 (0.9-1.1) APTT 23.4 (21.0-31.0) Seconds PTT Ratio 0.9 Sodium 136 (136-145) mmol/L Potassium 4.5 (3.5-5.1) mmol/L Chloride 103 (98-107) mmol/L Carbon Dioxide 26 (21-32) mmol/L Anion Gap 7.0 (3-11) BUN 26 H (7-18) mg/dl Creatinine 1.31 H (0.6-1.2) mg/dl Est Cr Clr Drug Dosing 28.7 ml/min Est GFR ( Amer) 42.3 Est GFR (Non-Af Amer) 36.5 BUN/Creatinine Ratio 19.8 (10-20) Glucose 164 H (70-99) mg/dl Lactate (0.4-2.0) mmol/L Calcium 9.1 (8.5-10.1) mg/dl Magnesium 1.8 (1.8-2.4) mg/dl Total Bilirubin 0.3 (0.2-1) mg/dl AST 22 (15-37) U/L ALT 19 (12-78) U/L Alkaline Phosphatase 154 H (45-117) U/L Troponin I 0.018 (0-0.045) ng/ml Total Protein 7.3 (6.4-8.2) gm/dl Albumin 3.3 L (3.4-5.0) gm/dl Globulin 4.0 (2.5-4.0) gm/dl Albumin/Globulin Ratio 0.8 L (0.9-2) Procalcitonin (0-0.5) ng/ml Urine Color Urine Appearance (Clear) Urine pH (4.5-7.5) Ur Specific Strat[place] (1.000-1.030) Urine Protein (Negative) Urine Glucose (UA) (Negative) Urine Ketones (Negative) Urine Blood (Negative) Urine Nitrite (Negative) Urine Bilirubin (Negative) Urine Urobilinogen (Negative) Ur Leukocyte Esterase (Negative) Urine WBC (Auto) (0-5) /hpf Urine RBC (Auto) (0-4) /hpf U Hyaline Cast (Auto) (0-5) /lpf U Epithel Cells (Auto) (0-5) /lpf Urine Bacteria (Auto) (Negative) COVID-19 Eval Order SARS-CoV-2 (PCR) (Negative) Influenza Type A (PCR) (Neg) Influenza Type B (PCR) (Neg) RSV (RT-PCR) (Neg) 02/15/21 02/15/21 02/15/21 Range/Units 21:37 21:37 21:55 WBC (4.8-10.8) K/uL RBC (4.2-5.4) M/uL Hgb (12.0-16.0) g/dL Hct (37-47) % MCV (80-100) fL MCH (25-34) pg MCHC (32-36) g/dL RDW Std Deviation (36.4-46.3) fL RDW Coeff of Namrata (11.5-14.5) % Plt Count (130-400) K/uL MPV (7.4-10.4) fL Immature Gran % (Auto) % Neut % (Auto) % Lymph % (Auto) % [place] % (Auto) % Eos % (Auto) % Baso % (Auto) % Neut # (Auto) (1.4-6.5) K/uL Lymph # (Auto) (1.2-3.4) K/uL [place] # (Auto) (0.11-0.59) K/uL Eos # (Auto) (0-0.5) K/uL Baso # (Auto) (0-0.2) K/uL Immature Gran # (Auto) (0.00-0.02) K/uL PT (9.0-12.0) Seconds INR (0.9-1.1) APTT (21.0-31.0) Seconds PTT Ratio Sodium (136-145) mmol/L Potassium (3.5-5.1) mmol/L Chloride (98-107) mmol/L Carbon Dioxide (21-32) mmol/L Anion Gap (3-11) BUN (7-18) mg/dl Creatinine (0.6-1.2) mg/dl Est Cr Clr Drug Dosing ml/min Est GFR ( Amer) Est GFR (Non-Af Amer) BUN/Creatinine Ratio (10-20) Glucose (70-99) mg/dl Lactate 1.5 (0.4-2.0) mmol/L Calcium (8.5-10.1) mg/dl Magnesium (1.8-2.4) mg/dl Total Bilirubin (0.2-1) mg/dl AST (15-37) U/L ALT (12-78) U/L Alkaline Phosphatase (45-117) U/L Troponin I (0-0.045) ng/ml Total Protein (6.4-8.2) gm/dl Albumin (3.4-5.0) gm/dl Globulin (2.5-4.0) gm/dl Albumin/Globulin Ratio (0.9-2) Procalcitonin < 0.05 (0-0.5) ng/ml Urine Color Urine Appearance (Clear) Urine pH (4.5-7.5) Ur Specific Strat[place] (1.000-1.030) Urine Protein (Negative) Urine Glucose (UA) (Negative) Urine Ketones (Negative) Urine Blood (Negative) Urine Nitrite (Negative) Urine Bilirubin (Negative) Urine Urobilinogen (Negative) Ur Leukocyte Esterase (Negative) Urine WBC (Auto) (0-5) /hpf Urine RBC (Auto) (0-4) /hpf U Hyaline Cast (Auto) (0-5) /lpf U Epithel Cells (Auto) (0-5) /lpf Urine Bacteria (Auto) (Negative) COVID-[address]FluRsv at [facility] SARS-CoV-2 (PCR) (Negative) Influenza Type A (PCR) (Neg) Influenza Type B (PCR) (Neg) RSV (RT-PCR) (Neg) 02/15/21 02/15/21 Range/Units 21:55 23:24 WBC (4.8-10.8) K/uL RBC (4.2-5.4) M/uL Hgb (12.0-16.0) g/dL Hct (37-47) % MCV (80-100) fL MCH (25-34) pg MCHC (32-36) g/dL RDW Std Deviation (36.4-46.3) fL RDW Coeff of Namrata (11.5-14.5) % Plt Count (130-400) K/uL MPV (7.4-10.4) fL Immature Gran % (Auto) % Neut % (Auto) % Lymph % (Auto) % [place] % (Auto) % Eos % (Auto) % Baso % (Auto) % Neut # (Auto) (1.4-6.5) K/uL Lymph # (Auto) (1.2-3.4) K/uL [place] # (Auto) (0.11-0.59) K/uL Eos # (Auto) (0-0.5) K/uL Baso # (Auto) (0-0.2) K/uL Immature Gran # (Auto) (0.00-0.02) K/uL PT (9.0-12.0) Seconds INR (0.9-1.1) APTT (21.0-31.0) Seconds PTT Ratio Sodium (136-145) mmol/L Potassium (3.5-5.1) mmol/L Chloride (98-107) mmol/L Carbon Dioxide (21-32) mmol/L Anion Gap (3-11) BUN (7-18) mg/dl Creatinine (0.6-1.2) mg/dl Est Cr Clr Drug Dosing ml/min Est GFR ( Amer) Est GFR (Non-Af Amer) BUN/Creatinine Ratio (10-20) Glucose (70-99) mg/dl Lactate (0.4-2.0) mmol/L Calcium (8.5-10.1) mg/dl Magnesium (1.8-2.4) mg/dl Total Bilirubin (0.2-1) mg/dl AST (15-37) U/L ALT (12-78) U/L Alkaline Phosphatase (45-117) U/L Troponin I (0-0.045) ng/ml Total Protein (6.4-8.2) gm/dl Albumin (3.4-5.0) gm/dl Globulin (2.5-4.0) gm/dl Albumin/Globulin Ratio (0.9-2) Procalcitonin (0-0.5) ng/ml Urine Color Yellow Urine Appearance Clear (Clear) Urine pH 6.0 (4.5-7.5) Ur Specific Strat[place] 1.019 (1.000-1.030) Urine Protein 1+ H (Negative) Urine Glucose (UA) Negative (Negative) Urine Ketones Negative (Negative) Urine Blood Trace H (Negative) Urine Nitrite Positive A (Negative) Urine Bilirubin Negative (Negative) Urine Urobilinogen Negative (Negative) Ur Leukocyte Esterase 2+ H (Negative) Urine WBC (Auto) >30 H (0-5) /hpf Urine RBC (Auto) 0-4 (0-4) /hpf U Hyaline Cast (Auto) 10-30 H (0-5) /lpf U Epithel Cells (Auto) 5-10 H (0-5) /lpf Urine Bacteria (Auto) 4+ H (Negative) COVID-19 Eval Order SARS-CoV-2 (PCR) NEGATIVE (Negative) Influenza Type A (PCR) Negative (Neg) Influenza Type B (PCR) Negative (Neg) RSV (RT-PCR) Negative (Neg) Administered Medications Discontinued Medications Piperacillin Sod/Tazobactam Sod (Zosyn) 4.5 gm in 120 mls @ 240 mls/hr IV NOW ONE Stop: 02/15/21 22:45 Last Infusion: 02/16/21 00:01 Dose: 0 mls/hr Documented by: [id number] Admin: 02/15/21 22:54 Dose: 240 mls/hr Documented by: [id number] Ondansetron HCl (Ondansetron Inj 2 Mg/Ml 2 Ml Vial) 4 mg IV NOW STA Stop: 02/15/21 21:12 Last Admin: 02/15/21 21:57 Dose: 4 mg Documented by: [id number] Imaging Data Attestation: I personally reviewed and interpreted this imaging study as gian de guzman: My Impression: 1 view of the chest was obtained in the emergency department. My interpretation is questionable infiltrate noted at the left base. Previous pacemaker was noted. There is no free air. Chronic changes of both shoulders was appreciated. Radiologist's Impression: Patient: GLENNA KELLEY (Female) : 31 Status: ER Date: 02/15/21 23:54 Room #: History: NO PAIN, FEVER AND VOMITING Slices: [id number] Priors: Tech: Francisco Elena @ [phone] Exams: CT ABDOMEN & PELVIS Without Contrast Contrast: Accession Numbers: [id number] Preliminary Findings Only See Final Report For Complete Findings CT ABDOMEN & PELVIS Without Contrast: Comparison 01/21/2018. Mild patchy left basilar consolidation which may be pneumonia or aspiration in the appropriate clinical setting. Calcified right basilar granuloma, as before. Multiple old left rib fracture deformities. Numerous calcified hepatic and splenic granulomas. Solid organs otherwise unremarkable. Extensive aortic atherosclerosis. Mild fusiform ectasia of the infrarenal abdominal aorta measuring 2.5 cm in diameter, as before. Cholelithiasis. No biliary dilatation. Moderate hiatal hernia. Diffuse gastric wall thickening versus incomplete distention. No bowel obstruction. Unremarkable appendix. Moderate stool volume throughout the colon. Extensive beam hardening artifact from bilateral hip prostheses obscures the lower pelvis, as before. No definite acute intra-abdominal process. Multilevel degenerative changes of the thoracolumbar spine. Moderate L1 compression fracture deformity. Radiologist: Allen Sotomayor M.D. Study ready at 23:59 and initial results transmitted at 00:45 Discharge Plan Visit Data Chief Complaint: Weakness Stated Complaint: WEAKNESS ED Provider: Luiz Carmona Discharge Problem: Acute pyelonephritis, Fever Patient Disposition: Being Evaluated by Hospitalist Condition: Good Forms Stand Alone Forms: [facility], [facility] Emergency Department, Important Visit Information Prescriptions Prescriptions: No Action potassium chloride 10 mEq tablet extended release 10 meq PO DAILY RF: 0 Incruse Ellipta 62.5 mcg/actuation blister with device 1 inh inhalation QAM RF: 0 famotidine [Pepcid] 20 mg tablet 20 mg PO DAILY PRN (Reason: gastric reflux) RF: 0 multivitamin Tablet 1 tab PO QAM RF: 0 metoprolol succinate 100 mg tablet extended release 24 hr 100 mg PO QAM RF: 0 aspirin 81 mg Tablet,Delayed Release (Dr/Ec) 81 mg PO QAM RF: 0 nifedipine 60 mg tablet extended release 24hr 60 mg PO QAM RF: 0 simvastatin 20 mg tablet 20 mg PO HS RF: 0 docusate sodium [Colace] 100 mg Capsule 100 mg PO QAM RF: 0 fluoxetine 20 mg capsule 20 mg PO BID RF: 0 calcium carbonate-vitamin D3 [Oyster Shell Calcium-Vit D3] 500 mg(1,250mg) - 200 unit Tablet 1 tab PO QAM RF: 0 omega 6-muh-ira-fish oil [Fish Oil] 1,000 mg (120 mg-180 mg) Capsule 1 cap PO BID RF: 0 PreserVision AREDS-2 [phone] de-lmfu-tn-mg Capsule 1 tab PO BID RF: 0 nystatin-triamcinolone 100,000-0.1 unit/g-% cream 1 applic TOPICAL UD PRN (Reason: fungal rash) RF: 0 Lantus Solostar U-100 Insulin 100 unit/mL (3 mL) insulin pen 18 unit SC HS RF: 0 losartan 100 mg tablet 100 mg PO DAILY RF: 0 acetaminophen [Tylenol Extra Strength] 500 mg Tablet 500 - 1,000 mg PO DAILY MDD 3 GRAMS/24 HOURS PRN (Reason: Pain) RF: 0 ipratropium-albuterol 0.5 mg-3 mg(2.5 mg base)/3 mL solution for nebulization 3 ml NEB QID PRN (Reason: Shortness Of Breath Or Wheezing) RF: 0 Eliquis 5 mg tablet 5 mg PO BID RF: 0 amoxicillin 500 mg Capsule 2,000 mg PO DIRECTED PRN (Reason: 1 HOUR PRIOR TO DENTAL APPT.) RF: 0 fluticasone propion-salmeterol [Wixela Inhub] 250-50 mcg/dose Blister With Device 1 inh INHALATION BID RF: 0 Coricidin HBP Chest Easton-Cough 10-200 mg Capsule 1 tab-cap PO DIRECTED PRN (Reason: Cough) RF: 0 acetaminophen [Tylenol Extra Strength] 500 mg Tablet 500 mg PO BID MDD 3 GRAM/24 HOURS RF: 0 docusate sodium [Doc-Q-Lace] 100 mg Capsule 100 mg PO DAILY PRN (Reason: Constipation) RF: 0 Calmoseptine 0.44-20.6 % Ointment 1 applic TOPICAL DIRECTED PRN (Reason: SKIN BREAKDOWN) RF: 0 Metamucil 3.4 gram/5.4 gram Powder 1 tbsp PO DAILY RF: 0 omeprazole 40 mg capsule,delayed release(DR/EC) 40 mg PO QAM RF: 0 Referrals Referrals: [facility], [facility] [Primary Care Provider] - Discharge Problem: Fever Qualifiers: Fever type: unspecified Qualified Code(s): R50.9 - Fever, unspecified
[2021-02-15 21:47] LABS: Basophils # (auto) 0.03 K/uL (0-0.2); Basophils % (auto) 0.2 %; Eosinophils # (auto) 0.32 K/uL (0-0.5); Eosinophils % (auto) 1.9 %; Hemoglobin 12.4 g/dL (12.0-16.0); Immature Granulocytes # (auto) 0.04 K/uL (0.00-0.02); Immature Granulocytes % (auto) 0.2 %; Lymphocytes # (auto) 1.39 K/uL (1.2-3.4); Lymphocytes % (auto) 8.2 %; Mean Corpuscular Hemoglobin 30.9 pg (25-34); Mean Corpuscular Hgb Conc 33.5 g/dL (32-36); Mean Corpuscular Volume 92.3 fL (80-100); Mean Platelet Volume 8.9 fL (7.4-10.4); Monocytes # (auto) 1.15 K/uL (0.11-0.59); Monocytes % (auto) 6.8 %; Neutrophils # (auto) 14.07 K/uL (1.4-6.5); Neutrophils % (auto) 82.7 %; Platelet Count 202 K/uL (130-400); RDW Coefficient of Variation 12.8 % (11.5-14.5); RDW Standard Deviation 43.4 fL (36.4-46.3); Red Blood Count 4.01 M/uL (4.2-5.4)
[2021-02-15 22:00] LABS: Partial Thromboplastin Ratio 0.9; Partial Thromboplastin Time 23.4 Seconds (21.0-31.0); Prothrombin Time 10.2 Seconds (9.0-12.0)
[2021-02-15 22:04] LABS: Albumin Level 3.3 gm/dl (3.4-5.0); BUN Creatinine Ratio 19.8 (10-20); Calcium 9.1 mg/dl (8.5-10.1); Creatinine Clr Calc Pharmacy 28.7 ml/min; Est GFR (African American) 42.3; Est GFR (Non-African American) 36.5; Magnesium 1.8 mg/dl (1.8-2.4); Potassium 4.5 mmol/L (3.5-5.1)
[2021-02-15 22:09] LABS: Albumin Globulin Ratio 0.8 (0.9-2); Bilirubin,Total 0.3 mg/dl (0.2-1); Total Protein 7.3 gm/dl (6.4-8.2); Troponin I 0.018 ng/ml (0-0.045)
[2021-02-15] MEDS ORDERED: PIPERACILLIN/TAZOBACTAM 4.5 GM/120 ML BAG IV ONE (22:16)
[2021-02-15] MEDS ORDERED: PIPERACILL/TAZOBAC CONSULT ACTIVE PRN (22:16)
[2021-02-15 23:03] LABS: Influenza A virus by PCR Negative (Neg); Influenza B virus by PCR Negative (Neg); RSV by PCR Negative (Neg); SARS CoV2 RNA(COVID-19) InHosp NEGATIVE (Negative)
[2021-02-15 23:41] LABS: Appearance Urine Clear (Clear); Bacteria Urine Automated 4+ (Negative); Bilirubin Urine Negative (Negative); Blood Urine Trace (Negative); Color Urine Yellow; Glucose Urine UA Negative (Negative); Ketones Urine Negative (Negative); Leukocyte Esterase Urine 2+ (Negative); Nitrite Urine Positive (Negative); Protein Urine 1+ (Negative); RBC Urine Automated 0-4 /hpf (0-4); Specific Gravity Urine 1.019 (1.000-1.030); Urobilinogen Urine Negative (Negative); WBC Urine Automated >30 /hpf (0-5)
[2021-02-16] MEDS ORDERED: ERTAPENEM SODIUM 1,000 MG in SODIUM CHLORIDE 0.9% 50 ML IV SCH (01:21)
[2021-02-16] MEDS ORDERED: ONDANSETRON INJ 2 MG/ML 2 ML VIAL IV PRN (01:21)
[2021-02-16] MEDS ORDERED: ALBUT/IPRATROP 3MG/0.5MG NEB 3 ML VIAL NEB PRN (01:21)
--- NOTE | 2021-02-16 01:31 | History & Physical Report ---
Date of Service February 16, 2021 Assessment & Plan (1) UTI (urinary tract infection): 84 yo F with PMHx CKD stage 3, sinus node dysfunction s/p pacemaker, DM2 on insulin therapy, AFib, COPD, HTN admitted with sepsis 2/2 UTI vs. aspiration pneumonia. Sepsis secondary to UTI vs. aspiration pneumonia: - CTAP without pyelonephritis, but notable for patchy left basilar consolidation infection vs. aspiration. - Patient's daughter does admit that she vomited once earlier today prior to arrival, and has noticed some increased work of breathing. - NPO for now with Speech Pathology consult to evaluate swallow. - UA this admission showing turbid urine, nitrites, 2+ LE, 4+ bacteria, >30 WBC. - UCx and BCx ordered. - Broad spectrum coverage with Zosyn initiated by ER physician. - History of ESBL E. coli bacteremia one year ago requiring ertapenem; will continue ertapenem to cover for both UTI and aspiration. Metabolic encephalopathy: - Differentials include metabolic derangement/NATALIA, infection. - History of similar presentation in the past. - Treatment of infection as outlined above, IV fluids for NATALIA. NATALIA: - Baseline Cr of ~1.1. - Cr 1.31 on admission. Will give NSS at 100cc/hr while NPO. - BMP in AM. Atrial fibrillation: - Continue Eliquis, metoprolol. - Currently in AFib, no RVR. COPD: - Continue home O2 3LNC as needed qHS. - Continue home Incruse, Advair. DM2: - On Lantus 15u HS at home. SSI added. - Anticipate return to home regimen on discharge. Sinus dysfunction, s/p pacemaker: - No palpitations, no bradycardia on admission. HTN: - continue metoprolol succinate 100 mg PO AM, losartan 100 mg PO AM, HCTZ 25 mg PO AM, Nifedipine 60 mg PO AM. CAD: - ASA and Simvastatin 20mg daily per home regimen. Code Status: Conditional Code; discussed with patient and her daughter: they desire intubation trae if patient has a primary lung pathology that is worsening and requires intubation. They do not desire chest compressions, defibrillation, or intubation in the event of her heart stopping. DVT ppx: Eliquis 5mg BID FEN/GI: NPO until cleared by Speech; DM2 diet following clearance Dispo: Med/Surg with Telemetry (2) Aspiration into airway: (3) Atrial fibrillation: (4) Hyperlipidemia: (5) DM w/o complication type II, uncontrolled: (6) Chronic kidney disease, stage III (moderate): (7) HTN (hypertension): (8) COPD (chronic obstructive pulmonary disease): History of Present Illness Chief Complaint: AMS, increased work of breathing Primary Care Provider: [place], [employer] [place] 84 yo F with PMHx CKD stage 3, sinus node dysfunction s/p pacemaker, DM2 on insulin therapy, AFib on Eliquis, COPD, HTN presented to ER with daughter for increased work of breathing and confusion. Patient has a history of ESBL E coli UTI and bacteremia in 04/2020 requiring ertapenem, and was admitted for several days for such. In discussion with daughter and patient, they deny any abdominal pain, dysuria, change in urinary habits, diarrhea, In the ER patient was febrile with leukocytosis. She had CTAP which showed left basilar consolidation. UA with bacteria, LE, nitrites. Urine and blood cultures collected and given Zosyn. Hospitalist service was consulted for admission. Allergies Allergy/AdvReac Type Severity Reaction Status Date / Time No Known Allergies Allergy Verified 02/15/21 21:15 Home Medications Medication Instructions Recorded Confirmed Type PreserVision AREDS-2 1 tab PO BID 02/02/19 02/15/21 History aspirin 81 mg PO QAM 02/02/19 02/15/21 History calcium carbonate-vitamin D3 1 tab PO QAM 02/02/19 02/15/21 History [Oyster Shell Calcium-Vit D3] docusate sodium [Colace] 100 mg PO QAM 02/02/19 02/15/21 History fluoxetine 20 mg PO BID 02/02/19 02/15/21 History metoprolol succinate 100 mg PO QAM 02/02/19 02/15/21 History multivitamin 1 tab PO QAM 02/02/19 02/15/21 History nifedipine 60 mg PO QAM 02/02/19 02/15/21 History omega 4-dei-veq-fish oil [Fish Oil] 1 cap PO BID 02/02/19 02/15/21 History simvastatin 20 mg PO HS 02/02/19 02/15/21 History losartan 100 mg PO DAILY 03/11/19 02/15/21 History potassium chloride 10 mEq 10 meq PO DAILY tab 06/14/19 02/15/21 History tablet,extended release acetaminophen [Tylenol Extra 500 - 1,000 mg PO DAILY PRN MDD 3 07/26/19 02/15/21 History Strength] GRAMS/24 HOURS ipratropium-albuterol 3 ml NEB QID PRN 07/26/19 02/15/21 History nystatin-triamcinolone 1 applic TOPICAL UD PRN 05/02/20 02/15/21 History Lantus Solostar U-100 Insulin 18 unit SC HS 06/11/20 02/15/21 History apixaban [Eliquis] 5 mg PO BID 06/25/20 02/15/21 History famotidine 20 mg tablet 20 mg PO DAILY PRN tab 06/30/20 02/15/21 History umeclidinium 62.5 mcg/actuation 1 inh INHALATION QAM 01/05/21 02/15/21 History blister powder for inhalation acetaminophen [Tylenol Extra 500 mg PO BID MDD 3 GRAM/24 HOURS 02/15/21 02/15/21 History Strength] amoxicillin 2,000 mg PO DIRECTED PRN 02/15/21 02/15/21 History dextromethorphan-guaifenesin 1 tab-cap PO DIRECTED PRN 02/15/21 02/15/21 History [Coricidin HBP Chest Easton-Cough] docusate sodium [Doc-Q-Lace] 100 mg PO DAILY PRN 02/15/21 02/15/21 History fluticasone propion-salmeterol 1 inh INHALATION BID 02/15/21 02/15/21 History [Wixela Inhub] menthol-zinc oxide [Calmoseptine] 1 applic TOPICAL DIRECTED PRN 02/15/21 02/15/21 History omeprazole 40 mg PO QAM 02/15/21 02/15/21 History psyllium husk [Metamucil] 1 tbsp PO DAILY 02/15/21 02/15/21 History Past Med/Surg History Medical History (Updated 02/16/21 @ 01:40 by Rani Lawler DO) Asthma Essential (primary) hypertension Frozen shoulder Hyperlipidemia Pacemaker Surgical History H/O bilateral cataract extraction History of left hip replacement History of right hip replacement History of total abdominal hysterectomy and bilateral salpingo-oophorectomy Family History Father Cancer laryngeal (smoker) Mother Ovarian cancer Social History Smoking Status: Former smoker Tobacco Type: Cigarettes Cigarettes Per Day: <1/2 ppd x 40 years; Second Hand Exposure: No; Do You Dip or Chew Tobacco: No; Hx Alcohol Use: No Hx Substance Use: No Preferred Language: Bangladeshi Communication Ability: Effective Ammonia Nitrate Operator Required: No Beliefs That Will Affect Care: Rastafari marital status: / Current Living Situation: Personal Care Facility Current Living Situation Comment: [facility] current occupational status: 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) Other Information That Helps Us Care for You: No other: 2 daughters, 1 son Feels Safe at Home: Yes Safety Concerns: Feels Safe At This Time Assistive Devices: Walker Review of Systems Review of Systems: All systems reviewed & are unremarkable except as noted in HPI & below Constitutional: + malaise; no fever and no chills Respiratory: + cough and + dyspnea on exertion Cardiovascular: no chest pain, no palpitations and no edema Gastrointestinal: no abdominal pain, no constipation and no diarrhea/loose stools Genitourinary: no dysuria and no hematuria Physical Exam Physical Exam: Constitutional: well developed and well nourished Eyes: PERRL, conjunctivae normal, anicteric sclerae Neck: normal visual inspection Respiratory: normal respiratory effort; trace bilateral expiratory wheezes, left basilar crackles Cardiovascular: Rate/Rhythm: regular rate and regular rhythm Extremities: + edema (trace, bilateral LE) Gastrointestinal (Abdomen): normal bowel sounds, soft, nontender, no hepatosplenomegaly Skin: no rashes, warm and dry Psychiatric: alert and oriented to place and person, not to time or circumstance Results & Data Results & Data ([facility]) Vital Signs (Past 12 Hours) Vital Signs Temp Pulse Resp BP Pulse Ox 02/16/21 00:23 83 24 95 02/16/21 00:00 76 20 92 02/15/21 23:30 77 15 92 02/15/21 23:00 79 23 92 02/15/21 22:56 37.3 C 02/15/21 22:53 83 22 178/98 H 94 02/15/21 22:07 20 96 02/15/21 21:20 38.5 C H 60 20 206/77 H 97 02/15/21 21:14 60 21 206/77 H 95 Code Status & VTE Plan VTE Prophylaxis Plan VTE Prophylaxis will be ordered: Yes Supervising Physician Co-Signing Physician Notes Attending addendum: I have physically seen this patient, have supervised the medical residents activities, and agree with the H&P unless as otherwise noted. Assessment and Plan: Sepsis/UTI/aspiration pneumonia- Admit to medical telemetry Urinary tract infection- ESBL E. coli UTI on 05/05/2020 that was Zosyn sensitive ESBL E. coli UTI on 06/11/2020 that was Zosyn resistant. Placed on ertapenem 1 g IV daily. Follow urine culture and sensitivities Left lower lobe pneumonia- Noted on CT of chest. Question of possible aspiration, and will be admitted with precautions Ertapenem as above Duonebs every 4 hours while awake and every 2 hours when necessary. Acute kidney injury- Creatinine 1.31 upon admission, with base 1.05. Gentle hydration, recheck labs in a.m. Remaining orders and notations as noted Resident Activity Tracking Resident Involvement: Resident Care Provided Care Provided: Adult Hospital Medicine (1) UTI (urinary tract infection) Hematuria presence: without hematuria Urinary tract infection type: site unspecified Qualified Code(s): N39.0 - Urinary tract infection, site not specified (2) Chronic kidney disease, stage III (moderate) Chronic kidney disease stage 3 subtype: stage 3b (GFR 30-44) Qualified Code(s): N18.32 - Chronic kidney disease, stage 3b (3) Atrial fibrillation Atrial fibrillation type: unspecified Qualified Code(s): I48.91 - Unspecified atrial fibrillation (4) Aspiration into airway Encounter type: initial encounter Qualified Code(s): T17.908A - Unspecified foreign body in respiratory tract, part unspecified causing other injury, initial encounter (5) Hyperlipidemia Hyperlipidemia type: mixed hyperlipidemia Qualified Code(s): E78.2 - Mixed hyperlipidemia (6) COPD (chronic obstructive pulmonary disease) COPD type: COPD with acute exacerbation Qualified Code(s): J44.1 - Chronic obstructive pulmonary disease with (acute) exacerbation (7) HTN (hypertension) Hypertension type: essential hypertension Qualified Code(s): I10 - Essential (primary) hypertension (8) DM 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
[2021-02-16] MEDS ORDERED: ACETAMINOPHEN 1000 MG/100 ML IV IV PRN (01:38)
[2021-02-16] MEDS: ERTAPENEM SODIUM 500 MG in SODIUM CHLORIDE 0.9% 50 ML IV SCH (02:41)
[2021-02-16] MEDS ORDERED: DEXTROSE 50% 50 ML SYRINGE IV PRN (02:59)
[2021-02-16] MEDS ORDERED: GLUCOSE 40% GEL 15 GM TUBE PO PRN (02:59)
[2021-02-16] MEDS ORDERED: GLUCAGON FOR INJ 1 MG VIAL SQ PRN (02:59)
[2021-02-16] MEDS ORDERED: MENTHOL-ZINC OXIDE 360 APPLN/120 GM TUBE EXT PRN (02:59)
[2021-02-16] MEDS ORDERED: GLUCOSE 10 TABS/TUBE PO PRN (02:59)
[2021-02-16] MEDS ORDERED: DOCUSATE SODIUM 100 MG CAP PO PRN (02:59)
[2021-02-16] MEDS ORDERED: NYSTATIN/TRIAMCIN CR 15 GM TUBE EXT PRN (02:59)
[2021-02-16] MEDS ORDERED: CARBOHYDRATES FOR HYPOGLYCEMIA PO PRN (02:59)
[2021-02-16] MEDS ORDERED: FAMOTIDINE 20 MG TAB PO PRN (02:59)
[2021-02-16] MEDS: SODIUM CHLORIDE 0.9% 1000ML 1,000 ML IV SCH ×3 (03:33→22:06)
[2021-02-16] MEDS ORDERED: INSULIN ASPART 100 UNITS/ML 3 ML PEN SC SCH ×2 (06:00→07:30)
--- NOTE | 2021-02-16 06:55 | XRay Report ---
XR chest 1V portable CLINICAL HISTORY: SEPSIS COMPARISON STUDY: 06/25/2020 FINDINGS: The cardiac and mediastinal contours remain stable. There is a left subclavian dual-chamber central venous pacemaker. There is no failure. There is no focal pulmonary consolidation. There are no pleural effusions. There are old left-sided rib fractures. There is a calcified granuloma at the r ight lung base. Advanced arthritic changes are present within the shoulders.[ IMPRESSION: No active disease in the chest. ACT 112: Negative or not required by law. Electronically signed by: Nahun Arreola M.D. 02/16/2021 6:54 AM
--- NOTE | 2021-02-16 07:55 | CT Scan Report ---
CT SCAN OF THE ABDOMEN AND PELVIS WITHOUT CONTRAST CLINICAL HISTORY: Fever and vomiting COMPARISON STUDY: 01/21/2018 TECHNIQUE: CT scan of the abdomen and pelvis was performed from the lung bases to the proximal femurs . Images are reviewed in the axial, sagittal, and coronal planes. IV contrast was not administered fo r this examination. A dose lowering technique was utilized adhering to the principles of ALARA. CT DOSE: 826.10 mGy.cm FINDINGS: Lower chest: There is a 15 mm pleural-based left lower lobe opacity. There is an area of parenchymal consolidation within left lower lobe medially. The findings are likely infectious/inflammatory. Short -term follow-up is recommended. There is a hiatal hernia. Liver: The unenhanced liver is normal in size, contour, and attenuation. There is no intrahepatic izzy iary ductal dilatation. Gallbladder: Cholelithiasis Spleen: There are multiple splenic granulomas. Pancreas: Unremarkable. Adrenal glands: There is low density left adrenal gland thickening. Kidneys: No renal, ureteral, or bladder calculi are visualized. Bowel: There are no transition zones to indicate bowel obstruction. There is scattered stool within t he colon. There is no evidence of acute diverticulitis. The appendix appears normal. Peritoneum: There is no intraperitoneal free air or abdominal ascites. Vasculature: There is ectasia of the infrarenal abdominal aorta which measures 27 mm. There are aorto iliac atheromatous calcifications. Adenopathy: None. Pelvic viscera: The uterus is surgically absent. Portions the pelvis are obscured due to artifact fro m bilateral hip arthroplasties Skeletal structures: No destructive osseous lesions are seen. There are old left-sided rib fractures IMPRESSION: 1. No evidence of bowel obstruction. No evidence of free air 2. Normal appendix. No evidence of acute diverticulitis. 3. Cholelithiasis. 4. Left lower lobe pulmonary parenchymal abnormalities, likely infectious/inflammatory. Short-term fo llow-up is recommended. 5. Hiatal hernia ACT 112: Negative or not required by law. Electronically signed by: Nahun Arreola M.D. 02/16/2021 7:53 AM
[2021-02-16 08:30] LABS: Basophils # (auto) 0.02 K/uL (0-0.2); Basophils % (auto) 0.1 %; Eosinophils # (auto) 0.04 K/uL (0-0.5); Eosinophils % (auto) 0.2 %; Hematocrit (blood only) 32.5 % (37-47); Hemoglobin 10.8 g/dL (12.0-16.0); Immature Granulocytes # (auto) 0.05 K/uL (0.00-0.02); Immature Granulocytes % (auto) 0.3 %; Lymphocytes # (auto) 1.95 K/uL (1.2-3.4); Mean Corpuscular Hemoglobin 30.9 pg (25-34); Mean Corpuscular Hgb Conc 33.2 g/dL (32-36); Mean Corpuscular Volume 92.9 fL (80-100); Monocytes # (auto) 1.38 K/uL (0.11-0.59); Monocytes % (auto) 7.8 %; Neutrophils # (auto) 14.21 K/uL (1.4-6.5); Neutrophils % (auto) 80.6 %; Platelet Count 192 K/uL (130-400); RDW Standard Deviation 44.2 fL (36.4-46.3); White Blood Count 17.65 K/uL (4.8-10.8)
[2021-02-16 08:33] LABS: BUN Creatinine Ratio 19.7 (10-20); Calcium 9.1 mg/dl (8.5-10.1); Creatinine Clr Calc Pharmacy 30.7 ml/min; Est GFR (African American) 47.5
[2021-02-16 08:38] LABS: Troponin I 0.029 ng/ml (0-0.045)
[2021-02-16] MEDS ORDERED: FLUTICASONE/SALMETEROL 250/50 (ADVAIR) 14 PUFF/1 INHALER INH SCH (09:00)
[2021-02-16] MEDS: ASPIRIN 81 MG ECTAB PO SCH (09:34)
[2021-02-16] MEDS: LOSARTAN POTASSIUM 50 MG TAB PO SCH (09:34)
[2021-02-16] MEDS: PANTOprazole 40 MG TAB PO SCH (09:35)
[2021-02-16] MEDS: MULTIVITAMIN TAB PO SCH (09:35)
[2021-02-16] MEDS: METOPROLOL SUCC 50MG EXT REL TAB PO SCH (09:35)
[2021-02-16] MEDS: FLUoxetine HCL 20 MG CAP PO SCH ×2 (09:35→20:19)
[2021-02-16] MEDS: NIFEdipine EXTENDED REL 30 MG TABCR PO SCH (09:35)
[2021-02-16] MEDS: POTASSIUM CHLORIDE 10 MEQ TABCR PO SCH (09:35)
[2021-02-16] MEDS: OMEGA-3 (PURIFIED FISH OIL) 1 GM CAP PO SCH ×2 (09:35→20:19)
[2021-02-16] MEDS: CEROVITE ADV FORMULA TAB PO SCH ×2 (09:36→20:19)
[2021-02-16] MEDS: CALCIUM 600MG + VIT D 400 IU TAB PO SCH (09:36)
[2021-02-16] MEDS: APIXABAN 5 MG TABLET PO SCH ×2 (09:36→20:19)
[2021-02-16] MEDS: DOCUSATE SODIUM 100 MG CAP PO SCH (09:36)
[2021-02-16] MEDS: FLUTICASONE/VILANTEROL 200/25MCG 14 PUFFS/INHALER INH SCH (09:47)
[2021-02-16] MEDS: PSYLLIUM 58.6% POWDER PACKET PO SCH (09:47)
[2021-02-16] MEDS ORDERED: Nursing to Pharmacy Communication SCH (10:45)
[2021-02-16] MEDS: UMECLIDINIUM BROMIDE 62.5MCG/BLISTER 7 PUFFS/INHALER INH SCH (12:28)
[2021-02-16] MEDS: INSULIN ASPART 100 UNITS/ML 3 ML PEN SC SCH ×3 (12:30→20:21)
--- NOTE | 2021-02-16 12:33 | Electrocardiogram Report ---
Test Reason : Blood Pressure : / mmHG Vent. Rate : 072 BPM Atrial Rate : 072 BPM P-R Int : 228 ms QRS Dur : 122 ms QT Int : 392 ms P-R-T Axes : 000 -09 112 degrees QTc Int : 429 ms Atrial-paced rhythm with prolonged AV conduction Left bundle branch block Abnormal ECG When compared with ECG of 25-JUN-2020 08:22, Left bundle branch block is now Present Confirmed by Luiz Hartmann ([id number]) on 02/16/2021 12:32:57 PM Referred By: MAUREEN Nelson Confirmed By:Luiz Hartmann
--- NOTE | 2021-02-16 17:25 | Communication Note ---
Date of Service: February 16, 2021 Day team addendum: Patient continues to feel relatively well, without continued overt signs of infection. Since fever on admission has remained afebrile. Revisiting the story does not further delineate the "unwell" feeling that the patient had prior to coming to the hospital. She currently denies fevers, chills, sweats, cough, nasal congestion, nausea, vomiting, changes in bowel movements. Indicates that two of her closer friends also have been unwell recently, but all of them have been vaccinated for COVID. Lungs: CTA b/l, no crackles/wheezes/rales/rhonchi CV: RRR, no m/g/r, no pitting edema Abd: soft NT/ND, BS+ in all 4 quadrants Skin: no rashes, warm and dry, no decubitus ulcers Currently uncertain etiology of infection, at this point in time seems to be improved, as no longer having progressive symptoms and no longer maintaining a fever. WBC with slight uptick from admission (17 to 17.6) but do not think this represents a worsening/progression of potential infection. Blood cultures pending, Urine Culture pending; continue Ertapenem at this time without change. I personally examined the patient and verified all mackey points of history and exam, discussed case, and agree with decision making with Dr Chris new w above, pt resting comfortably, wakes up a little when i see her and smiles, but doesn't really talk much when i'm in the room. no focal neuro deficits. lungs clear although suboptimal exam due to positioning and effort. no rashes/erythema. leukocytosis - unclear etiology. given that she was sent from [facility] for respiratory symptoms, while her infiltrate noted on the lung views of CT abd/pelvis is fairly small, it does appear legitimate -- would continue treatment for possible CAP(aspiration initially cosnidered as well - but speech eval quite reassuring). appears stable. Resident Activity Tracking Resident Involvement: Resident Care Provided Care Provided: Adult Hospital Medicine
[2021-02-16] MEDS: SIMVASTATIN 20 MG TAB PO SCH (20:20)
[2021-02-16] MEDS: INSULIN GLARGINE SOLOSTAR 100 UNITS/ML 3 ML PEN SC SCH (20:21)
[2021-02-17] MEDS: ERTAPENEM SODIUM 500 MG in SODIUM CHLORIDE 0.9% 50 ML IV SCH (02:17)
--- NOTE | 2021-02-17 03:34 | Billing Data ---
Date of Service February 17, 2021 Coding Level of Care Code 21038 Initial Inpt Care Lvl 3
[2021-02-17 07:40] LABS: Basophils # (auto) 0.02 K/uL (0-0.2); Basophils % (auto) 0.2 %; Eosinophils # (auto) 0.37 K/uL (0-0.5); Eosinophils % (auto) 3.6 %; Hematocrit (blood only) 33.1 % (37-47); Hemoglobin 10.7 g/dL (12.0-16.0); Immature Granulocytes # (auto) 0.03 K/uL (0.00-0.02); Immature Granulocytes % (auto) 0.3 %; Lymphocytes # (auto) 1.67 K/uL (1.2-3.4); Lymphocytes % (auto) 16.2 %; Mean Corpuscular Hemoglobin 30.4 pg (25-34); Mean Corpuscular Hgb Conc 32.3 g/dL (32-36); Mean Platelet Volume 9.1 fL (7.4-10.4); Monocytes # (auto) 0.95 K/uL (0.11-0.59); Monocytes % (auto) 9.2 %; Neutrophils # (auto) 7.28 K/uL (1.4-6.5); Neutrophils % (auto) 70.5 %; Platelet Count 174 K/uL (130-400); RDW Coefficient of Variation 13.1 % (11.5-14.5); RDW Standard Deviation 44.9 fL (36.4-46.3); Red Blood Count 3.52 M/uL (4.2-5.4); White Blood Count 10.32 K/uL (4.8-10.8)
[2021-02-17 08:06] LABS: BUN Creatinine Ratio 16.8 (10-20); Creatinine Clr Calc Pharmacy 41.5 ml/min; Est GFR (African American) 67.5; Est GFR (Non-African American) 58.3; Potassium 3.9 mmol/L (3.5-5.1)
[2021-02-17] MEDS: SODIUM CHLORIDE 0.9% 1000ML 1,000 ML IV SCH (09:30)
[2021-02-17] MEDS: INSULIN ASPART 100 UNITS/ML 3 ML PEN SC SCH ×4 (09:44→20:32)
[2021-02-17] MEDS: CALCIUM 600MG + VIT D 400 IU TAB PO SCH (09:52)
[2021-02-17] MEDS: ASPIRIN 81 MG ECTAB PO SCH (09:52)
[2021-02-17] MEDS: NIFEdipine EXTENDED REL 30 MG TABCR PO SCH (09:53)
[2021-02-17] MEDS: OMEGA-3 (PURIFIED FISH OIL) 1 GM CAP PO SCH ×2 (09:53→20:32)
[2021-02-17] MEDS: LOSARTAN POTASSIUM 50 MG TAB PO SCH (09:53)
[2021-02-17] MEDS: METOPROLOL SUCC 50MG EXT REL TAB PO SCH (09:53)
[2021-02-17] MEDS: POTASSIUM CHLORIDE 10 MEQ TABCR PO SCH (09:53)
[2021-02-17] MEDS: PANTOprazole 40 MG TAB PO SCH (09:53)
[2021-02-17] MEDS: DOCUSATE SODIUM 100 MG CAP PO SCH (09:53)
[2021-02-17] MEDS: APIXABAN 5 MG TABLET PO SCH ×2 (09:53→20:31)
[2021-02-17] MEDS: MULTIVITAMIN TAB PO SCH (09:54)
[2021-02-17] MEDS: CEROVITE ADV FORMULA TAB PO SCH ×2 (09:54→20:32)
[2021-02-17] MEDS: UMECLIDINIUM BROMIDE 62.5MCG/BLISTER 7 PUFFS/INHALER INH SCH (09:54)
[2021-02-17] MEDS: PSYLLIUM 58.6% POWDER PACKET PO SCH (09:54)
[2021-02-17] MEDS: FLUTICASONE/VILANTEROL 200/25MCG 14 PUFFS/INHALER INH SCH (09:54)
[2021-02-17] MEDS: FLUoxetine HCL 20 MG CAP PO SCH ×2 (09:54→20:32)
--- NOTE | 2021-02-17 11:27 | Hospitalist Progress Note ---
Date of Service February 17, 2021 Assessment & Plan (1) Fatigue: 84 yo F with PMHx CKD stage 3, sinus node dysfunction s/p pacemaker, DM2 on insulin therapy, AFib, COPD, HTN admitted with concerns of fatigue and difficulty breathing, thought to be related to potential sepsis 2/2 UTI vs. aspiration pneumonia. Fatigue: - in the setting of dyspnea, leukocytosis, and fever on admission - completed COVID-19 vaccination in November, and COVID negative on admission - numerous potential etiologies for this presentation, including but not limited too: sepsis, metabolic encephalopathy, or dehydration - febrile on admission, with no continued fevers at this point - negative Lactate on admission - CTAP without active infectious processes within the abdomen, but notable for patchy left basilar consolidation - Chest XR without signs of acute process - UA this admission showing turbid urine, nitrites, 2+ LE, 4+ bacteria, >30 WBC. - UCx demonstrating gram negative bacilli - History of ESBL E. coli bacteremia one year ago requiring ertapenem - Blood cultures no growth at 24 hours - will convert Ertapenem to Augmentin NATALIA: - Baseline Cr of ~1.1. - Cr 1.31 on admission - BMP in AM. Atrial fibrillation: - Continue Eliquis, metoprolol. - Currently in AFib, no RVR. COPD: - Continue home O2 3LNC as needed qHS. - Continue home Incruse, Advair. DM2: - On Lantus 15u HS at home. continue SSI. - Anticipate return to home regimen on discharge. Sinus dysfunction, s/p pacemaker: - No palpitations, no bradycardia on admission. HTN: - continue metoprolol succinate 100 mg PO AM, losartan 100 mg PO AM, HCTZ 25 mg PO AM, Nifedipine 60 mg PO AM. CAD: - ASA and Simvastatin 20mg daily per home regimen. Code Status: Conditional Code; discussed with patient and her daughter: they desire intubation trae if patient has a primary lung pathology that is worsening and requires intubation. They do not desire chest compressions, defibrillation, or intubation in the event of her heart stopping. DVT ppx: Eliquis 5mg BID FEN/GI: easy to chew, carb consistent diet (2) UTI (urinary tract infection): (3) Aspiration into airway: (4) Atrial fibrillation: (5) Hyperlipidemia: (6) DM w/o complication type II, uncontrolled: (7) Chronic kidney disease, stage III (moderate): (8) HTN (hypertension): Admission and Anticipated Discharge Date Admission Date: February 16, 2021 Supervising Physician Co-Signing Physician Notes I personally examined the patient and verified all mackey points of history and exam, discussed case, and agree with decision making with Dr Perez. Feeling better. No new complaints. Vitals noted, in general she is awake and alert pleasant no distress. Lungs show left lower lung field with faint base Rales lower/mid was slightly tubular breath sounds. Otherwise clear may be a scattered rhonchus right. Community-acquired pneumoniainitial concern on UTI and sepsis appears to been unfounded. Given that she was previously bacteremic and did come in with significant leukocytosis, will wait on blood cultures into tomorrow, however highly doubt that she is septic from UTI/bacteremia. More than likely this is asymptomatic bacteriuria. CT scan of her abdomen pelvis did show lung findings consistent with an infiltrate that is right in the area where I am hearing abnormal lung sounds, and she was sent over due to appearance of respiratory symptoms. Ertapenem is likely not necessary for thiscan switch to something on the order of oral Augmentin and then anticipate home as long as no new findings on blood culture. Subjective Patient feels exceptionally well this morning, she has limited recollection of how she was feeling unwell previously without knowledge of any recent sick contacts or others around her that were sick. She states that the only thing that she was feeling prior to coming to the hospital was profoundly tired. Review of Systems Review of Systems: All systems reviewed & are unremarkable except as noted in Subjective Physical Exam Constitutional: WD/WN, vitals as above Eyes: PERRL, conjunctivae normal, anicteric sclerae Respiratory: normal respiratory effort; no respiratory distress and no labored breathing Auscultation: + wheezes (Trace b/l upper lobe); no crackles, no rales and no rhonchi Cardiovascular: Rate/Rhythm: regular rate and regular rhythm Heart Sounds: no gallop, no murmur and no cardiac rub Gastrointestinal (Abdomen): Inspection/Auscultation: abdomen normal to inspection; abdomen not distended and + abnormal bowel sounds Percussion/P alpation: abdomen soft; abdomen nontender and no guarding Skin: no rashes, warm and dry Psychiatric: Orientation: alert, oriented to person, oriented to place and cooperative; + not oriented to time Results & Data Results & Data ([facility]) Vital Signs (Past 12 Hours) Vital Signs Temp Pulse Pulse Resp BP BP Pulse Ox 02/17/21 10:36 64 02/17/21 08:00 36.7 C 66 18 148/71 H 91 02/17/21 02:36 36.8 C 61 18 163/72 H 96 Laboratory Results 02/17/21 02/17/21 02/17/21 Range/Units 07:40 07:13 07:13 WBC (4.8-10.8) K/uL RBC (4.2-5.4) M/uL Hgb (12.0-16.0) g/dL Hct (37-47) % MCV (80-100) fL MCH (25-34) pg MCHC (32-36) g/dL RDW Std Deviation (36.4-46.3) fL RDW Coeff of [place] (11.5-14.5) % Plt Count (130-400) K/uL MPV (7.4-10.4) fL Immature Gran % (Auto) % Neut % (Auto) % Lymph % (Auto) % [place] % (Auto) % Eos % (Auto) % Baso % (Auto) % Neut # (Auto) (1.4-6.5) K/uL Lymph # (Auto) (1.2-3.4) K/uL [place] # (Auto) (0.11-0.59) K/uL Eos # (Auto) (0-0.5) K/uL Baso # (Auto) (0-0.2) K/uL Immature Gran # (Auto) (0.00-0.02) K/uL Sodium 141 (136-145) mmol/L Potassium 3.9 (3.5-5.1) mmol/L Chloride 109 H (98-107) mmol/L Carbon Dioxide 29 (21-32) mmol/L Anion Gap 2.0 L (3-11) BUN 15 (7-18) mg/dl Creatinine 0.89 D (0.6-1.2) mg/dl Est Cr Clr Drug Dosing 41.5 ml/min Est GFR ( Amer) 67.5 Est GFR (Non-Af Amer) 58.3 BUN/Creatinine Ratio 16.8 (10-20) Glucose 78 (70-99) mg/dl POC Glucose 80 (70-99) mg/dl Calcium 9.0 (8.5-10.1) mg/dl Procalcitonin 0.10 (0-0.5) ng/ml 02/17/21 02/16/21 02/16/21 Range/Units 07:13 20:11 16:58 WBC 10.32 (4.8-10.8) K/uL RBC 3.52 L (4.2-5.4) M/uL Hgb 10.7 L (12.0-16.0) g/dL Hct 33.1 L (37-47) % MCV 94.0 (80-100) fL MCH 30.4 (25-34) pg MCHC 32.3 (32-36) g/dL RDW Std Deviation 44.9 (36.4-46.3) fL RDW Coeff of [place] 13.1 (11.5-14.5) % Plt Count 174 (130-400) K/uL MPV 9.1 (7.4-10.4) fL Immature Gran % (Auto) 0.3 % Neut % (Auto) 70.5 % Lymph % (Auto) 16.2 % [place] % (Auto) 9.2 % Eos % (Auto) 3.6 % Baso % (Auto) 0.2 % Neut # (Auto) 7.28 H (1.4-6.5) K/uL Lymph # (Auto) 1.67 (1.2-3.4) K/uL [place] # (Auto) 0.95 H (0.11-0.59) K/uL Eos # (Auto) 0.37 (0-0.5) K/uL Baso # (Auto) 0.02 (0-0.2) K/uL Immature Gran # (Auto) 0.03 H (0.00-0.02) K/uL Sodium (136-145) mmol/L Potassium (3.5-5.1) mmol/L Chloride (98-107) mmol/L Carbon Dioxide (21-32) mmol/L Anion Gap (3-11) BUN (7-18) mg/dl Creatinine (0.6-1.2) mg/dl Est Cr Clr Drug Dosing ml/min Est GFR ( Amer) Est GFR (Non-Af Amer) BUN/Creatinine Ratio (10-20) Glucose (70-99) mg/dl POC Glucose 118 H 94 (70-99) mg/dl Calcium (8.5-10.1) mg/dl Procalcitonin (0-0.5) ng/ml Medications Administered Current Inpatient Medications Acetaminophen (Acetaminophen 1000 Mg/100 Ml Iv) 1,000 mg IV Q8H PRN PRN Reason: pain or fever Stop: 02/19/21 01:37 Albuterol (Albut/Ipratrop 3mg/0.5mg Neb 3 Ml Vial) 3 ml NEB QID PRN PRN Reason: Shortness Of Breath Or Wheezing Stop: 03/18/21 01:20 Apixaban (Apixaban 5 Mg Tablet) 5 mg PO BID [facility] Stop: 03/18/21 08:59 Last Admin: 02/17/21 09:53 Dose: 5 mg Documented by: Aspirin (Aspirin 81 Mg Ectab) 81 mg PO [facility] Stop: 03/18/21 08:59 Last Admin: 02/17/21 09:52 Dose: 81 mg Documented by: Calamine/Phenol (Menthol-Zinc Oxide 360 Appln/120 Gm Tube) 1 appln EXT DAILY PRN PRN Reason: SKIN BREAKDOWN Stop: 03/18/21 02:58 Dextrose (Dextrose 50% 50 Ml Syringe) 25 - 50 ml IV UD PRN; Protocol PRN Reason: Hypoglycemia Protocol Stop: 03/18/21 02:58 Docusate Sodium (Docusate Sodium 100 Mg Cap) 100 mg PO DAILY PRN PRN Reason: Constipation Stop: 03/18/21 02:58 Docusate Sodium (Docusate Sodium 100 Mg Cap) 100 mg PO QAM [facility] Stop: 03/18/21 08:59 Last Admin: 02/17/21 09:53 Dose: 100 mg Documented by: Famotidine (Famotidine 20 Mg Tab) 20 mg PO DAILY PRN PRN Reason: gastric reflux Stop: 03/18/21 02:58 Last Admin: 02/16/21 09:34 Dose: 20 mg Documented by: Fish Oil ([place]-3 (Purified Fish Oil) 1 Gm Cap) 1 gm PO BID [facility] Stop: 03/18/21 08:59 Last Admin: 02/17/21 09:53 Dose: 1 gm Documented by: Fluoxetine HCl (Fluoxetine Hcl 20 Mg Cap) 20 mg PO BID DONN Stop: 03/18/21 08:59 Last Admin: 02/17/21 09:54 Dose: 20 mg Documented by: Fluticasone/Vilanterol (Fluticasone/Vilanterol 200/25mcg 14 Puffs/Inhaler) 1 puffs INH DAILY DONN Stop: 03/18/21 08:59 Last Admin: 02/17/21 09:54 Dose: 1 puffs Documented by: Glucagon (Glucagon For Inj 1 Mg Vial) 1 mg SQ UD PRN; Protocol PRN Reason: Hypoglycemia Protocol Stop: 03/18/21 02:58 Glucose (Glucose 10 Tabs/Tube) 4 - 8 tabs PO UD PRN; Protocol PRN Reason: Hypoglycemia Protocol Stop: 03/18/21 02:58 Glucose (Glucose 40% Gel 15 Gm Tube) 15 - 30 gm PO UD PRN; Protocol PRN Reason: Hypoglycemia Protocol Stop: 03/18/21 02:58 Sodium Chloride (Nss 1000ml) 1,000 mls @ 100 mls/hr IV .Q10H DONN Stop: 03/18/21 02:58 Last Admin: 02/17/21 09:30 Dose: 100 mls/hr Documented by: Insulin Aspart (Insulin Aspart 100 Units/Ml 3 Ml Pen) 0 units SC ACHS DONN Stop: 03/18/21 11:29 Last Admin: 02/17/21 09:44 Dose: Not Given Documented by: Insulin Glargine (Insulin Glargine Solostar 100 Units/Ml 3 Ml Pen) 18 units SC HS DONN Stop: 03/18/21 20:59 Last Admin: 02/16/21 20:21 Dose: 18 units Documented by: Losartan Potassium (Losartan Potassium 50 Mg Tab) 100 mg PO DAILY DONN Stop: 03/18/21 08:59 Last Admin: 02/17/21 09:53 Dose: 100 mg Documented by: Metoprolol Succinate (Metoprolol Succ 50mg Ext Rel Tab) 100 mg PO QAM DONN Stop: 03/18/21 08:59 Last Admin: 02/17/21 09:53 Dose: 100 mg Documented by: Miscellaneous (Carbohydrates For Hypoglycemia ) 15 - 30 gm PO UD PRN PRN Reason: Hypoglycemia Protocol Stop: 03/18/21 02:58 Multivitamins (Multivitamin Tab) 1 tab PO QAM DONN Stop: 03/18/21 08:59 Last Admin: 02/17/21 09:54 Dose: 1 tab Documented by: Multivitamins/Minerals (Calcium 600mg + Vit D 400 Iu Tab) 1 tab PO QAM DONN Stop: 03/18/21 08:59 Last Admin: 02/17/21 09:52 Dose: 1 tab Documented by: Multivitamins/Minerals (Cerovite Adv Formula Tab) 1 tab PO BID DONN Stop: 03/18/21 08:59 Last Admin: 02/17/21 09:54 Dose: 1 tab Documented by: Nifedipine (Nifedipine Extended Rel 30 Mg Tabcr) 60 mg PO QAM [facility] Stop: 03/18/21 08:59 Last Admin: 02/17/21 09:53 Dose: 60 mg Documented by: Nystatin/Triamcinolone Acetonide (Nystatin/Triamcin Cr 15 Gm Tube) 1 appln EXT DAILY PRN PRN Reason: fungal rash Stop: 03/18/21 02:58 Ondansetron HCl (Ondansetron Inj 2 Mg/Ml 2 Ml Vial) 4 mg IV Q6H PRN PRN Reason: Nausea Stop: 03/18/21 01:20 Pantoprazole Sodium (Pantoprazole 40 Mg Tab) 40 mg PO QAM [facility] Stop: 03/18/21 08:59 Last Admin: 02/17/21 09:53 Dose: 40 mg Documented by: Potassium Chloride (Potassium Chloride 10 Meq Tabcr) 10 meq PO DAILY DONN Stop: 03/18/21 08:59 Last Admin: 02/17/21 09:53 Dose: 10 meq Documented by: Psyllium Hydrophilic Mucilloid (Psyllium 58.6% Powder Packet) 1 pkt PO DAILY DONN Stop: 03/18/21 08:59 Last Admin: 02/17/21 09:54 Dose: 1 pkt Documented by: Simvastatin (Simvastatin 20 Mg Tab) 20 mg PO HS [facility] Stop: 03/18/21 20:59 Last Admin: 02/16/21 20:20 Dose: 20 mg Documented by: Umeclidinium [place] (Umeclidinium [place] 62.5mcg/Blister 7 Puffs/Inhaler) 1 puffs INH QAM [facility] Stop: 03/18/21 08:59 Last Admin: 02/17/21 09:54 Dose: 1 puffs Documented by: Resident Activity Tracking Resident Involvement: Resident Care Provided Care Provided: Adult Hospital Medicine (1) UTI (urinary tract infection) Hematuria presence: without hematuria Urinary tract infection type: site unspecified Qualified Code(s): N39.0 - Urinary tract infection, site not specified (2) Chronic kidney disease, stage III (moderate) Chronic kidney disease stage 3 subtype: stage 3b (GFR 30-44) Qualified Code(s): N18.32 - Chronic kidney disease, stage 3b (3) Atrial fibrillation Atrial fibrillation type: unspecified Qualified Code(s): I48.91 - Unspecified atrial fibrillation (4) Aspiration into airway Encounter type: initial encounter Qualified Code(s): T17.908A - Unspecified foreign body in respiratory tract, part unspecified causing other injury, initial encounter (5) Hyperlipidemia Hyperlipidemia type: mixed hyperlipidemia Qualified Code(s): E78.2 - Mixed hyperlipidemia (6) HTN (hypertension) Hypertension type: essential hypertension Qualified Code(s): I10 - Essential (primary) hypertension (7) DM 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
--- NOTE | 2021-02-17 17:17 | Billing Data ---
Date of Service February 17, 2021 Coding Level of Care Code 29312 Subseq Hosp Care Lvl 3
[2021-02-17] MEDS: AMOXICILLIN/CLAVULANATE 875 MG TAB PO SCH (17:34)
[2021-02-17] MEDS: SIMVASTATIN 20 MG TAB PO SCH (20:32)
[2021-02-17] MEDS: INSULIN GLARGINE SOLOSTAR 100 UNITS/ML 3 ML PEN SC SCH (20:32)
[2021-02-18 08:10] LABS: Basophils # (auto) 0.02 K/uL (0-0.2); Basophils % (auto) 0.2 %; Eosinophils # (auto) 0.46 K/uL (0-0.5); Eosinophils % (auto) 4.7 %; Hematocrit (blood only) 33.5 % (37-47); Hemoglobin 11.2 g/dL (12.0-16.0); Immature Granulocytes # (auto) 0.01 K/uL (0.00-0.02); Immature Granulocytes % (auto) 0.1 %; Lymphocytes # (auto) 1.73 K/uL (1.2-3.4); Lymphocytes % (auto) 17.8 %; Mean Corpuscular Hemoglobin 30.8 pg (25-34); Mean Corpuscular Hgb Conc 33.4 g/dL (32-36); Mean Platelet Volume 9.1 fL (7.4-10.4); Monocytes # (auto) 0.95 K/uL (0.11-0.59); Monocytes % (auto) 9.8 %; Neutrophils # (auto) 6.54 K/uL (1.4-6.5); Neutrophils % (auto) 67.4 %; Platelet Count 208 K/uL (130-400); RDW Coefficient of Variation 12.6 % (11.5-14.5); RDW Standard Deviation 42.8 fL (36.4-46.3); Red Blood Count 3.64 M/uL (4.2-5.4); White Blood Count 9.71 K/uL (4.8-10.8)
[2021-02-18 08:40] LABS: BUN Creatinine Ratio 13.8 (10-20); Calcium 9.5 mg/dl (8.5-10.1); Creatinine Clr Calc Pharmacy 38.5 ml/min; Est GFR (African American) 62.4; Est GFR (Non-African American) 53.9; Potassium 3.6 mmol/L (3.5-5.1)
[2021-02-18] MEDS: AMOXICILLIN/CLAVULANATE 875 MG TAB PO SCH (09:07)
[2021-02-18] MEDS: FLUTICASONE/VILANTEROL 200/25MCG 14 PUFFS/INHALER INH SCH (09:07)
[2021-02-18] MEDS: UMECLIDINIUM BROMIDE 62.5MCG/BLISTER 7 PUFFS/INHALER INH SCH (09:07)
[2021-02-18] MEDS: PSYLLIUM 58.6% POWDER PACKET PO SCH (09:07)
[2021-02-18] MEDS: CEROVITE ADV FORMULA TAB PO SCH (09:08)
[2021-02-18] MEDS: INSULIN ASPART 100 UNITS/ML 3 ML PEN SC SCH ×2 (09:09→11:30)
[2021-02-18] MEDS: ASPIRIN 81 MG ECTAB PO SCH (09:35)
[2021-02-18] MEDS: CALCIUM 600MG + VIT D 400 IU TAB PO SCH (09:36)
[2021-02-18] MEDS: NIFEdipine EXTENDED REL 30 MG TABCR PO SCH (09:36)
[2021-02-18] MEDS: POTASSIUM CHLORIDE 10 MEQ TABCR PO SCH (09:36)
[2021-02-18] MEDS: OMEGA-3 (PURIFIED FISH OIL) 1 GM CAP PO SCH (09:36)
[2021-02-18] MEDS: MULTIVITAMIN TAB PO SCH (09:37)
[2021-02-18] MEDS: APIXABAN 5 MG TABLET PO SCH (09:37)
[2021-02-18] MEDS: PANTOprazole 40 MG TAB PO SCH (09:37)
[2021-02-18] MEDS: METOPROLOL SUCC 50MG EXT REL TAB PO SCH (09:37)
[2021-02-18] MEDS: LOSARTAN POTASSIUM 50 MG TAB PO SCH (09:37)
[2021-02-18] MEDS: FLUoxetine HCL 20 MG CAP PO SCH (09:38)
[2021-02-18] MEDS: DOCUSATE SODIUM 100 MG CAP PO SCH (09:43)
--- NOTE | 2021-02-18 10:11 | Discharge Summary ---
Date of Service February 18, 2021 Admission HPI Per Admitting Provider 84 yo F with PMHx CKD stage 3, sinus node dysfunction s/p pacemaker, DM2 on insulin therapy, AFib on Eliquis, COPD, HTN presented to ER with daughter for increased work of breathing and confusion. Patient has a history of ESBL E coli UTI and bacteremia in 04/2020 requiring ertapenem, and was admitted for several days for such. In discussion with daughter and patient, they deny any abdominal pain, dysuria, change in urinary habits, diarrhea, In the ER patient was febrile with leukocytosis. She had CTAP which showed left basilar consolidation. UA with bacteria, LE, nitrites. Urine and blood cultures collected and given Zosyn. Hospitalist service was consulted for admission. Principal Diagnosis Pneumonia Discharge Exam Constitutional WD/WN, vitals as above Eyes PERRL, conjunctivae normal, anicteric sclerae Respiratory normal respiratory effort; no respiratory distress and no labored breathing Auscultation: + wheezes (Trace b/l upper lobe); no crackles, no rales and no rhonchi Cardiovascular Rate/Rhythm: regular rate and regular rhythm Heart Sounds: no gallop, no murmur and no cardiac rub Gastrointestinal (Abdomen) Inspection/Auscultation: abdomen normal to inspection; abdomen not distended and + abnormal bowel sounds Percussion/Palpation: abdomen soft; abdomen nontender and no guarding Skin no rashes, warm and dry Psychiatric Orientation: alert, oriented to person, oriented to place and cooperative; + not oriented to time Discharge Data Allergies Allergy/AdvReac Type Severity Reaction Status Date / Time No Known Allergies Allergy Verified 02/15/21 21:15 Consultations 02/16/21 00:10 ED Decision to Admit Stat Ordered Studies 02/15/21 21:46 CT abd pelvis wo con Urgent Hospital Course (1) Fatigue: 84 yo F with PMHx CKD stage 3, sinus node dysfunction s/p pacemaker, DM2 on insulin therapy, AFib, COPD, HTN admitted with concerns of fatigue and difficulty breathing, thought to be related to potential sepsis 2/2 UTI vs. aspiration pneumonia. Pneumonia: - in the setting of dyspnea, leukocytosis, and fever on admission - completed COVID-19 vaccination in November, and COVID negative on admission - numerous potential etiologies for this presentation, including but not limited too: sepsis, metabolic encephalopathy, or dehydration - febrile on admission, with no continued fevers at this point - negative Lactate on admission - CTAP without active infectious processes within the abdomen, but notable for patchy left basilar consolidation - Chest XR without signs of acute process - Blood cultures no growth at 48 hours - continue Augmentin 875mg BID for two additional days Atrial fibrillation: - Continue Eliquis, metoprolol. COPD: - Continue home O2 3LNC as needed at night. - Continue home Incruse, Advair DM2: - Continue Lantus 15u nightly. HTN: - continue metoprolol succinate 100 mg PO AM, losartan 100 mg PO AM, HCTZ 25 mg PO AM, Nifedipine 60 mg PO AM. CAD: - ASA and Simvastatin 20mg daily per home regimen. (2) Aspiration into airway: (3) Atrial fibrillation: (4) Hyperlipidemia: (5) DM w/o complication type II, uncontrolled: (6) Chronic kidney disease, stage III (moderate): (7) HTN (hypertension): Total Time Total Time Spent Total Time Spent (In Minutes): <30 Discharge Plan Discharge Items Patient Disposition: Personal Assisted Reason For Visit: SOB, AMS Discharge Diagnosis: community-acquired pneumonia Condition on Discharge: Good Activity: Per Instructions section Non-emergency contact: Primary Care Provider Call non-emergency contact if: you have any medication questions, your symptoms worsen and you have a fever Follow-up/Referrals: MAUREEN Glover [Primary Care Provider] - Diet: Carb Consistent or DM2 Addtl Attending Provider Instructions: You were seen and admitted for concern of shortness of breath, cough, and fatigue; with your history of previously having bacteria grow in your blood this was a larger concern for the explanation of your symptoms. During this evaluation, you had imaging that demonstrated signs of infection in your lung that as we continued to treat the underlying infection you continued to have improvement in how you were doing and decreasing need for oxygen supplementation during the day. Now that you are being discharged, you will continue to be on the antibiotic (Augmentin) for the next two days and you should take it twice a day. Following this time, you should continue to improve and not require any further courses of antibiotics. Pending Studies at Discharge: No Stand-Alone Forms: [employer], Smoking Cessation Skilled Items Patient informed of condition?: No DNR: No Discharge Level of Care: Other Communicable Disease: No Discharge Prognosis: Stable Lines: None Urinary Catheter: No Medications and DC Order Prescriptions: New amoxicillin-pot clavulanate 875-125 mg tablet 1 tab PO BIDM 2 Days Qty: 5 RF: 0 Continued potassium chloride 10 mEq tablet extended release 10 meq PO DAILY RF: 0 Incruse Ellipta 62.5 mcg/actuation blister with device 1 inh inhalation QAM RF: 0 famotidine [Pepcid] 20 mg tablet 20 mg PO DAILY PRN (Reason: gastric reflux) RF: 0 multivitamin Tablet 1 tab PO QAM RF: 0 metoprolol succinate 100 mg tablet extended release 24 hr 100 mg PO QAM RF: 0 aspirin 81 mg Tablet,Delayed Release (Dr/Ec) 81 mg PO QAM RF: 0 nifedipine 60 mg tablet extended release 24hr 60 mg PO QAM RF: 0 simvastatin 20 mg tablet 20 mg PO HS RF: 0 docusate sodium [Colace] 100 mg Capsule 100 mg PO QAM RF: 0 fluoxetine 20 mg capsule 20 mg PO BID RF: 0 calcium carbonate-vitamin D3 [Oyster Shell Calcium-Vit D3] 500 mg(1,250mg) - 200 unit Tablet 1 tab PO QAM RF: 0 omega 5-oif-dev-fish oil [Fish Oil] 1,000 mg (120 mg-180 mg) Capsule 1 cap PO BID RF: 0 PreserVision AREDS-2 [id number] eh-xofs-ro-mg Capsule 1 tab PO BID RF: 0 nystatin-triamcinolone 100,000-0.1 unit/g-% cream 1 applic TOPICAL UD PRN (Reason: fungal rash) RF: 0 Lantus Solostar U-100 Insulin 100 unit/mL (3 mL) insulin pen 18 unit SC HS RF: 0 losartan 100 mg tablet 100 mg PO DAILY RF: 0 acetaminophen [Tylenol Extra Strength] 500 mg Tablet 500 - 1,000 mg PO DAILY MDD 3 GRAMS/24 HOURS PRN (Reason: Pain) RF: 0 ipratropium-albuterol 0.5 mg-3 mg(2.5 mg base)/3 mL solution for nebulization 3 ml NEB QID PRN (Reason: Shortness Of Breath Or Wheezing) RF: 0 Eliquis 5 mg tablet 5 mg PO BID RF: 0 amoxicillin 500 mg Capsule 2,000 mg PO DIRECTED PRN (Reason: 1 HOUR PRIOR TO DENTAL APPT.) RF: 0 fluticasone propion-salmeterol [Wixela Inhub] 250-50 mcg/dose Blister With Device 1 inh INHALATION BID RF: 0 Coricidin HBP Chest [place]-Cough 10-200 mg Capsule 1 tab-cap PO DIRECTED PRN (Reason: Cough) RF: 0 acetaminophen [Tylenol Extra Strength] 500 mg Tablet 500 mg PO BID MDD 3 GRAM/24 HOURS RF: 0 docusate sodium 100 mg Capsule 100 mg PO DAILY PRN (Reason: Constipation) RF: 0 Calmoseptine 0.44-20.6 % Ointment 1 applic TOPICAL DIRECTED PRN (Reason: SKIN BREAKDOWN) RF: 0 Metamucil 3.4 gram/5.4 gram Powder 1 tbsp PO DAILY RF: 0 omeprazole 40 mg capsule,delayed release(DR/EC) 40 mg PO QAM RF: 0 Discharge Orders: Discharge Order (Routine); Ordered 02/18/21 Ordered By: Juan Jose Perez Admission Data Admit Date/Time: 02/16/21 01:21 Attending Provider: Von Clay Admit Provider: Rani Lawler [facility] Other Providers: Fabrice Desai Other Interventions: Discharge Summary Assessment (RN) Last Done: 02/18/21 12:03 Supervising Physician Co-Signing Physician Notes I personally examined the patient and verified all mackey points of history and exam, discussed case, and agree with decision making with Dr Perez. Feels up to leaving hospital no new complaints Vitals noted, in general she is awake and alert pleasant no distress. Breathing unlabored no accessory muscle use good effort. Skin shows no rashes no pallor or icterus. Neuro shows no focal deficits. Community-acquired pneumoniainitial concern on UTI and sepsis appears to been unfounded. Clinical situation appears extremely consistent with asymptomatic bacteriuria. CT scan of her abdomen pelvis did show lung findings consistent with an infiltrate that is right in the area where I am hearing abnormal lung sounds, and she was sent over due to appearance of respiratory symptoms. Generally her clinical picture appears consistent with a mild pneumonia, improving nicely, safe for home on Augmentin Resident Activity Tracking Resident Involvement: Resident Care Provided Care Provided: Adult Hospital Medicine
--- NOTE | 2021-02-18 16:40 | Billing Data ---
Date of Service February 18, 2021 Coding Level of Care Code D/C Day Management <30 mins
== END 2021-02-18 15:43 | disposition home or self-care (01) | DRG 871 ==
LOC: ED 21:05 → 2W 02-16 01:21 → SUATTDRO 02-16 01:21 → 2W 02-16 02:54

== ENCOUNTER 2022-08-27 08:08 | Inpatient (IN) ==
--- NOTE | 2022-08-27 08:39 | Emergency Department Note ---
Impression & Plan Pulmonary edema, Fever, Elevated troponin I level ED Provider Note NAME: GLENNA KELLEY AGE: 87 SEX: F : 1935 ARRIVES VIA: Ambulance INFORMANT: Patient, ED PROVIDER(S): Luiz Carmona DO CHIEF COMPLAINT: Cough and fever HPI: The patient is an 87-year-old female who presented to the emergency department for an evaluation of cough and fever. The patient comes from her personal custodial. She does have some degree of underlying cognitive impairment. The patient has a history of atrial fibrillation and does take blood thinners. She also has a history of renal insufficiency. There is been no reported trauma. There is been no reported hemoptysis. She is had no abdominal pain. The patient denies having any lower extremity swelling and she states that she has been compliant with her outpatient medications. According to the EMS personnel the patient developed worsening symptoms this morning. She was given Tylenol prior to arrival for a fever of 100.1 degrees. ROS: See above HPI for pertinent positives & negatives. A total of 10 systems reviewed and were otherwise negative. PAST MEDICAL HISTORY: See Below PAST SURGICAL HISTORY: See Below FAMILY HISTORY: See Below SOCIAL HISTORY: See Below HOME MEDICATIONS: See Below ALLERGIES: See Below VITALS: See Below PHYSICAL EXAMINATION: GENERAL: Patient is awake alert in no acute distress patient is resting comfortably and showing no signs of anxiety EYES: The conjunctivae are clear. The pupils are round and reactive. EARS, NOSE, MOUTH AND THROAT: The nose is without any evidence of any deformity. Mucous membranes are moist. Tongue is midline. NECK: The neck is nontender and supple. RESPIRATORY: Diminished breath sounds are noted throughout. There is no tachypnea or conversational dyspnea. CARDIOVASCULAR: Irregular heart sounds are noted auscultation. There is no definite murmur. GASTROINTESTINAL: The abdomen is soft. Abdomen is nontender. MUSCULOSKELETAL/EXTREMITIES: There is no evidence of gross deformity full range of motion is noted in the hips and shoulders. SKIN: Pedal edema was noted bilaterally. Skin is warm and dry. NEUROLOGIC: Patient is awake to verbal commands. The patient answers to her name. She is oriented to place as well. Strength was symmetric. MEDICAL DECISION MAKING: The patient is an 87-year-old female who presented to the emergency department for an evaluation of fever and difficulty breathing. Initially I thought the patient's condition could be consistent with a pulmonary infection such as pneumonia. Chest x-ray was not consistent with pneumonia. The patient was treated with IV Lasix in the emergency department. Work-up appeared to be consistent with some degree of pulmonary edema. This would be a new diagnosis according to her family members. She was also treated with IV antibiotics. Given her fever her age and comorbidities and IV antibiotic empirically could help the patient when the source is actually found. I discussed the patient's laboratory and radiographic studies with the family. I also discussed this case with the on-call [facility] hospitalist. They have agreed to evaluate the patient in the emergency department for further management and disposition. Triage Nursing notes reviewed. Prior medical records reviewed Vital Signs: reviewed and remarkable for elevated blood pressure and fever. Differential diagnosis: Viral syndrome, otitis, pharyngitis, pneumonia, influenza, meningitis, urinary tract infection, sepsis, bacteremia, as well as other pathologies. ER treatment provided: See below Diagnostics interpreted by me: ECG: EKG was obtained in the emergency department. My interpretation is atrial paced rhythm with ventricular sensing at 79 bpm. Torres Martinez beats were noted. Left bundle branch block pattern was appreciated. This was compared to a tracing from February 15, 2021. No changes were noted. Cardiac Monitoring: An order was placed for continuous cardiac monitoring. The monitor shows a rate of 87 bpm with paced rhythm. Laboratory studies: As stated above and show below. Imaging studies: See below Consultation(s): I discussed this case with Dr. Vila [facility] Med/Surg History Medical History Asthma Essential (primary) hypertension Frozen shoulder Hyperlipidemia Pacemaker Surgical History H/O bilateral cataract extraction History of left hip replacement History of right hip replacement History of total abdominal hysterectomy and bilateral salpingo-oophorectomy Family History Father Cancer laryngeal (smoker) Mother Ovarian cancer Social History Smoking Status: Former smoker Tobacco Type: Cigarettes Cigarettes Per Day: <1/2 ppd x 40 years; Second Hand Exposure: No; Hx Alcohol Use: No Hx Substance Use: No Preferred Language: Yi Communication Ability: Effective New Product Trainer Required: No Beliefs That Will Affect Care: Caodaism marital status: / Current Living Situation: Personal Care Facility Current Living Situation Comment: [facility] current occupational status: 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) other: 2 daughters, 1 son Feels Safe at Home: Yes Assistive Devices: Walker Allergies Allergies Allergy/AdvReac Type Severity Reaction Status Date / Time No Known Allergies Allergy Verified 07/25/22 15:14 Home Meds Home Medications Medication Instructions Recorded Confirmed aspirin 81 mg tablet,delayed 81 mg PO QAM 02/02/19 08/27/22 release calcium carbonate 500 mg-vitamin 1 tab PO QAM 02/02/19 08/27/22 D3 5 mcg (200 unit) tablet (Oyster Shell Calcium-Vitamin D3) fluoxetine 20 mg capsule 20 mg PO BID 02/02/19 08/27/22 metoprolol succinate 100 mg 100 mg PO QAM 02/02/19 08/27/22 tablet,extended release 24 hr multivitamin 1 tab PO QAM 02/02/19 08/27/22 nifedipine 60 mg tablet,extended 60 mg PO QAM 02/02/19 08/27/22 release 24 hr omega [id number]-xrs-[id number]-fish oil 1,000 mg 1 cap PO BID 02/02/19 08/27/22 (120 mg-180 mg) capsule (Fish Oil) simvastatin 20 mg tablet 20 mg PO HS 02/02/19 08/27/22 vit C 250 mg-vit E 90 mg-zinc 40 1 tab PO BID 02/02/19 08/27/22 mg-copper 1 [id number] capsule (PreserVision AREDS-2) losartan 100 mg tablet 100 mg PO DAILY 03/11/19 08/27/22 potassium chloride 10 mEq 10 meq PO DAILY 06/14/19 08/27/22 tablet,extended release acetaminophen 500 mg tablet 500 - 1,000 mg PO DAILY PRN Pain 07/26/19 08/27/22 (Tylenol Extra Strength) ipratropium 0.5 mg-albuterol 3 mg 3 ml NEB QID PRN Shortness Of 07/26/19 08/27/22 (2.5 mg base)/3 mL nebulization Breath Or Wheezing soln nystatin-triamcinolone 100,000 1 applic topical UD PRN fungal rash 05/02/20 08/27/22 unit/g-0.1 % topical cream insulin glargine 100 unit/mL (3 18 unit SC HS 06/11/20 08/27/22 mL) subcutaneous pen (Lantus Solostar U-100 Insulin) apixaban 5 mg tablet (Eliquis) 5 mg PO BID 06/25/20 08/27/22 famotidine 20 mg tablet (Pepcid) 20 mg PO DAILY PRN gastric reflux 06/30/20 08/27/22 umeclidinium 62.5 mcg/actuation 1 inh inhalation QAM 01/05/21 08/27/22 blister powder for inhalation (Incruse Ellipta) acetaminophen 500 mg tablet 500 mg PO BID 02/15/21 08/27/22 (Tylenol Extra Strength) amoxicillin 500 mg capsule 2,000 mg PO DIRECTED PRN 1 HOUR 02/15/21 08/27/22 PRIOR TO DENTAL APPT. dextromethorphan-guaifenesin 10 1 tab-cap PO DIRECTED PRN Cough 02/15/21 08/27/22 mg-200 mg capsule (Coricidin HBP Chest Congestion-Cough) docusate sodium 100 mg capsule 100 mg PO DAILY PRN Constipation 02/15/21 08/27/22 fluticasone 250 mcg-salmeterol 50 1 inh inhalation BID 02/15/21 08/27/22 mcg/dose blistr powdr for inhalation (Wixela Inhub) menthol 0.44 %-zinc oxide 20.6 % 1 applic topical DIRECTED PRN 02/15/21 08/27/22 topical ointment (Calmoseptine) SKIN BREAKDOWN omeprazole 40 mg capsule,delayed 40 mg PO QAM 02/15/21 08/27/22 release psyllium husk 3.4 gram/5.4 gram 1 tbsp PO DAILY 02/15/21 08/27/22 oral powder (Metamucil) isosorbide mononitrate 30 mg 30 mg PO DAILY 07/25/22 08/27/22 tablet,extended release 24 hr Results & Data (ED) Vital Signs Vital Signs - 24 hr 08/27/22 07:59 08/27/22 07:59 08/27/22 07:59 Temperature 38.4 C H Temperature Source Oral Pulse Rate 80 Pulse Rate [Apical] 80 Pulse Rhythm [Apical] Respiratory Rate 16 18 Respiratory Effort / Characteristics Respiratory Depth Blood Pressure 163/74 H Blood Pressure [Left Arm] Blood Pressure Mean 103 Blood Pressure Mean [Left Arm] Pulse Oximetry 96 96 Oxygen Delivery Method Room Air Room Air Oxygen Flow Rate Sepsis Recent Fever Within 48 Hours Yes Sepsis New/Unexplained Change in Mental Status N/A Sepsis Action Taken by Nursing No Action Required 08/27/22 08:28 08/27/22 09:24 08/27/22 13:00 Temperature 37.8 C H Temperature Source Oral Pulse Rate Pulse Rate [Apical] 87 Pulse Rhythm [Apical] Regular Respiratory Rate 19 Respiratory Effort / Characteristics Non-Labored Spontaneous Respiratory Depth Normal Blood Pressure Blood Pressure [Left Arm] 176/102 H Blood Pressure Mean Blood Pressure Mean [Left Arm] 126 Pulse Oximetry 96 95 Oxygen Delivery Method Nasal Cannula Oxygen Flow Rate 2 Sepsis Recent Fever Within 48 Hours Sepsis New/Unexplained Change in Mental Status Sepsis Action Taken by [facility] Medications Current Medication List: was personally reviewed by me Laboratory Data Attestation: I reviewed the patient's lab results. Result diagrams: 08/27/22 08:22 08/27/22 08:22 Lab Results 08/27/22 08/27/22 08/27/22 Range/Units 08:22 08:22 08:22 WBC 9.63 (4.8-10.8) K/ul RBC 3.26 L (3.93-5.22) M/uL Hgb 10.2 L (12.0-16.0) g/dl Hct 31.0 L (34.1-44.9) % MCV 95.1 (80.0-100.0) fL MCH 31.3 (25.0-34.0) pg MCHC 32.9 (32.0-36.0) g/dL RDW Std Deviation 45.1 (36.4-46.3) fL RDW Coeff of [place] 13.0 (11.5-14.5) % Plt Count 205 (130-400) K/uL MPV 9.4 (9.4-12.3) fL Immature Gran % (Auto) 0.3 % Neut % (Auto) 74.9 % Lymph % (Auto) 12.7 % [place] % (Auto) 10.3 % Eos % (Auto) 1.5 % Baso % (Auto) 0.3 % Neut # (Auto) 7.22 H (1.4-6.5) K/uL Lymph # (Auto) 1.22 (1.2-3.4) K/uL [place] # (Auto) 0.99 H (0.24-0.82) K/uL Eos # (Auto) 0.14 (0-0.50) K/uL Baso # (Auto) 0.03 (0-0.2) K/uL Immature Gran # (Auto) 0.03 H (0.00-0.02) K/uL ESR (0-30) mm/hr PT (9.0-12.0) Seconds INR (0.9-1.1) APTT (21.0-31.0) Seconds PTT Ratio VBG pH (7.36-7.41) VBG pCO2 (38-50) mmHg VBG pO2 mmHg VBG HCO3 mmol/L VBG O2 Saturation % VBG Base Excess mEq/L Carboxyhemoglobin % THgb Sodium 137 (136-145) mmol/L Potassium 4.2 (3.5-5.1) mmol/L Chloride 103 (98-107) mmol/L Carbon Dioxide 27 (21-32) mmol/L Anion Gap 7 (3-11) BUN 12 (6-23) mg/dl Creatinine 0.96 (0.6-1.2) mg/dl Est Cr Clr Drug Dosing 34.3 ml/min Est GFR ( Amer) 60.8 ml/min Est GFR (Non-Af Amer) 52.4 ml/min BUN/Creatinine Ratio 12.5 (10-20) Glucose 101 H (70-99(Fasting)) mg/dl POC Glucose (70-99) mg/dl Calcium 9.3 (8.5-10.1) mg/dl Total Bilirubin 0.7 (0.2-1.0) mg/dl AST 13 (13-39) U/L ALT 7 (7-52) U/L Alkaline Phosphatase 93 (34-104) U/L Troponin I High Sens 20.9 H (0-14) pg/ml C-Reactive Protein (0-0.5) mg/dl B-Natriuretic Peptide 195 H (0-100) pg/ml Total Protein 6.8 (6.0-8.3) gm/dl Albumin 3.7 (3.4-5.0) gm/dl Globulin 3.1 (2.5-4.0) gm/dl Albumin/Globulin Ratio 1.2 (0.9-2) Procalcitonin (0-0.5) ng/ml Urine Color Urine Appearance (Clear) Urine pH (4.5-7.5) Ur Specific [place] (1.000-1.030) Urine Protein (Negative) Urine Glucose (UA) (Negative) Urine Ketones (Negative) Urine Blood (Negative) Urine Nitrite (Negative) Urine Bilirubin (Negative) Urine Urobilinogen (Negative) Ur Leukocyte Esterase (Negative) Urine WBC (Auto) (0-5) /hpf Urine RBC (Auto) (0-4) /hpf U Hyaline Cast (Auto) (0-5) /lpf U Epithel Cells (Auto) (0-5) /lpf Urine Bacteria (Auto) (Negative) Lyme Disease IgG Ab (Negative) Lyme Disease IgM Ab (Negative) SARS-CoV-2 (PCR) (Negative) Influenza Type A (PCR) (Neg) Influenza Type B (PCR) (Neg) RSV (RT-PCR) (Neg) 08/27/22 08/27/22 08/27/22 Range/Units 08:22 08:22 08:22 WBC (4.8-10.8) K/ul RBC (3.93-5.22) M/uL Hgb (12.0-16.0) g/dl Hct (34.1-44.9) % MCV (80.0-100.0) fL MCH (25.0-34.0) pg MCHC (32.0-36.0) g/dL RDW Std Deviation (36.4-46.3) fL RDW Coeff of [place] (11.5-14.5) % Plt Count (130-400) K/uL MPV (9.4-12.3) fL Immature Gran % (Auto) % Neut % (Auto) % Lymph % (Auto) % [place] % (Auto) % Eos % (Auto) % Baso % (Auto) % Neut # (Auto) (1.4-6.5) K/uL Lymph # (Auto) (1.2-3.4) K/uL [place] # (Auto) (0.24-0.82) K/uL Eos # (Auto) (0-0.50) K/uL Baso # (Auto) (0-0.2) K/uL Immature Gran # (Auto) (0.00-0.02) K/uL ESR 71 H (0-30) mm/hr PT 11.3 (9.0-12.0) Seconds INR 1.1 (0.9-1.1) APTT 28.2 (21.0-31.0) Seconds PTT Ratio 1.0 VBG pH (7.36-7.41) VBG pCO2 (38-50) mmHg VBG pO2 mmHg VBG HCO3 mmol/L VBG O2 Saturation % VBG Base Excess mEq/L Carboxyhemoglobin % THgb Sodium (136-145) mmol/L Potassium (3.5-5.1) mmol/L Chloride (98-107) mmol/L Carbon Dioxide (21-32) mmol/L Anion Gap (3-11) BUN (6-23) mg/dl Creatinine (0.6-1.2) mg/dl Est Cr Clr Drug Dosing ml/min Est GFR ( Amer) ml/min Est GFR (Non-Af Amer) ml/min BUN/Creatinine Ratio (10-20) Glucose (70-99(Fasting)) mg/dl POC Glucose (70-99) mg/dl Calcium (8.5-10.1) mg/dl Total Bilirubin (0.2-1.0) mg/dl AST (13-39) U/L ALT (7-52) U/L Alkaline Phosphatase (34-104) U/L Troponin I High Sens (0-14) pg/ml C-Reactive Protein (0-0.5) mg/dl B-Natriuretic Peptide (0-100) pg/ml Total Protein (6.0-8.3) gm/dl Albumin (3.4-5.0) gm/dl Globulin (2.5-4.0) gm/dl Albumin/Globulin Ratio (0.9-2) Procalcitonin (0-0.5) ng/ml Urine Color Urine Appearance (Clear) Urine pH (4.5-7.5) Ur Specific [place] (1.000-1.030) Urine Protein (Negative) Urine Glucose (UA) (Negative) Urine Ketones (Negative) Urine Blood (Negative) Urine Nitrite (Negative) Urine Bilirubin (Negative) Urine Urobilinogen (Negative) Ur Leukocyte Esterase (Negative) Urine WBC (Auto) (0-5) /hpf Urine RBC (Auto) (0-4) /hpf U Hyaline Cast (Auto) (0-5) /lpf U Epithel Cells (Auto) (0-5) /lpf Urine Bacteria (Auto) (Negative) Lyme Disease IgG Ab (Negative) Lyme Disease IgM Ab (Negative) SARS-CoV-2 (PCR) NEGATIVE (Negative) Influenza Type A (PCR) Negative (Neg) Influenza Type B (PCR) Negative (Neg) RSV (RT-PCR) Negative (Neg) 08/27/22 08/27/22 08/27/22 Range/Units 08:22 08:22 08:58 WBC (4.8-10.8) K/ul RBC (3.93-5.22) M/uL Hgb (12.0-16.0) g/dl Hct (34.1-44.9) % MCV (80.0-100.0) fL MCH (25.0-34.0) pg MCHC (32.0-36.0) g/dL RDW Std Deviation (36.4-46.3) fL RDW Coeff of [place] (11.5-14.5) % Plt Count (130-400) K/uL MPV (9.4-12.3) fL Immature Gran % (Auto) % Neut % (Auto) % Lymph % (Auto) % [place] % (Auto) % Eos % (Auto) % Baso % (Auto) % Neut # (Auto) (1.4-6.5) K/uL Lymph # (Auto) (1.2-3.4) K/uL [place] # (Auto) (0.24-0.82) K/uL Eos # (Auto) (0-0.50) K/uL Baso # (Auto) (0-0.2) K/uL Immature Gran # (Auto) (0.00-0.02) K/uL ESR (0-30) mm/hr PT (9.0-12.0) Seconds INR (0.9-1.1) APTT (21.0-31.0) Seconds PTT Ratio VBG pH 7.41 (7.36-7.41) VBG pCO2 47 (38-50) mmHg VBG pO2 22 mmHg VBG HCO3 30 mmol/L VBG O2 Saturation < 60.0 % VBG Base Excess 4.3 mEq/L Carboxyhemoglobin % THgb Sodium (136-145) mmol/L Potassium (3.5-5.1) mmol/L Chloride (98-107) mmol/L Carbon Dioxide (21-32) mmol/L Anion Gap (3-11) BUN (6-23) mg/dl Creatinine (0.6-1.2) mg/dl Est Cr Clr Drug Dosing ml/min Est GFR ( Amer) ml/min Est GFR (Non-Af Amer) ml/min BUN/Creatinine Ratio (10-20) Glucose (70-99(Fasting)) mg/dl POC Glucose (70-99) mg/dl Calcium (8.5-10.1) mg/dl Total Bilirubin (0.2-1.0) mg/dl AST (13-39) U/L ALT (7-52) U/L Alkaline Phosphatase (34-104) U/L Troponin I High Sens (0-14) pg/ml C-Reactive Protein 4.05 H (0-0.5) mg/dl B-Natriuretic Peptide (0-100) pg/ml Total Protein (6.0-8.3) gm/dl Albumin (3.4-5.0) gm/dl Globulin (2.5-4.0) gm/dl Albumin/Globulin Ratio (0.9-2) Procalcitonin 0.17 (0-0.5) ng/ml Urine Color Urine Appearance (Clear) Urine pH (4.5-7.5) Ur Specific [place] (1.000-1.030) Urine Protein (Negative) Urine Glucose (UA) (Negative) Urine Ketones (Negative) Urine Blood (Negative) Urine Nitrite (Negative) Urine Bilirubin (Negative) Urine Urobilinogen (Negative) Ur Leukocyte Esterase (Negative) Urine WBC (Auto) (0-5) /hpf Urine RBC (Auto) (0-4) /hpf U Hyaline Cast (Auto) (0-5) /lpf U Epithel Cells (Auto) (0-5) /lpf Urine Bacteria (Auto) (Negative) Lyme Disease IgG Ab Negative (Negative) Lyme Disease IgM Ab Negative (Negative) SARS-CoV-2 (PCR) (Negative) Influenza Type A (PCR) (Neg) Influenza Type B (PCR) (Neg) RSV (RT-PCR) (Neg) 08/27/22 08/27/22 08/27/22 Range/Units 08:58 10:47 13:05 WBC (4.8-10.8) K/ul RBC (3.93-5.22) M/uL Hgb (12.0-16.0) g/dl Hct (34.1-44.9) % MCV (80.0-100.0) fL MCH (25.0-34.0) pg MCHC (32.0-36.0) g/dL RDW Std Deviation (36.4-46.3) fL RDW Coeff of [place] (11.5-14.5) % Plt Count (130-400) K/uL MPV (9.4-12.3) fL Immature Gran % (Auto) % Neut % (Auto) % Lymph % (Auto) % [place] % (Auto) % Eos % (Auto) % Baso % (Auto) % Neut # (Auto) (1.4-6.5) K/uL Lymph # (Auto) (1.2-3.4) K/uL [place] # (Auto) (0.24-0.82) K/uL Eos # (Auto) (0-0.50) K/uL Baso # (Auto) (0-0.2) K/uL Immature Gran # (Auto) (0.00-0.02) K/uL ESR (0-30) mm/hr PT (9.0-12.0) Seconds INR (0.9-1.1) APTT (21.0-31.0) Seconds PTT Ratio VBG pH (7.36-7.41) VBG pCO2 (38-50) mmHg VBG pO2 mmHg VBG HCO3 mmol/L VBG O2 Saturation % VBG Base Excess mEq/L Carboxyhemoglobin 1.5 % THgb Sodium (136-145) mmol/L Potassium (3.5-5.1) mmol/L Chloride (98-107) mmol/L Carbon Dioxide (21-32) mmol/L Anion Gap (3-11) BUN (6-23) mg/dl Creatinine (0.6-1.2) mg/dl Est Cr Clr Drug Dosing ml/min Est GFR ( Amer) ml/min Est GFR (Non-Af Amer) ml/min BUN/Creatinine Ratio (10-20) Glucose (70-99(Fasting)) mg/dl POC Glucose 95 (70-99) mg/dl Calcium (8.5-10.1) mg/dl Total Bilirubin (0.2-1.0) mg/dl AST (13-39) U/L ALT (7-52) U/L Alkaline Phosphatase (34-104) U/L Troponin I High Sens (0-14) pg/ml C-Reactive Protein (0-0.5) mg/dl B-Natriuretic Peptide (0-100) pg/ml Total Protein (6.0-8.3) gm/dl Albumin (3.4-5.0) gm/dl Globulin (2.5-4.0) gm/dl Albumin/Globulin Ratio (0.9-2) Procalcitonin (0-0.5) ng/ml Urine Color Yellow Urine Appearance Clear (Clear) Urine pH 8.5 H (4.5-7.5) Ur Specific [place] 1.014 (1.000-1.030) Urine Protein 1+ H (Negative) Urine Glucose (UA) Negative (Negative) Urine Ketones Negative (Negative) Urine Blood Negative (Negative) Urine Nitrite Negative (Negative) Urine Bilirubin Negative (Negative) Urine Urobilinogen Negative (Negative) Ur Leukocyte Esterase Negative (Negative) Urine WBC (Auto) 1-5 (0-5) /hpf Urine RBC (Auto) 0-4 (0-4) /hpf U Hyaline Cast (Auto) 0 (0-5) /lpf U Epithel Cells (Auto) 5-10 H (0-5) /lpf Urine Bacteria (Auto) Negative (Negative) Lyme Disease IgG Ab (Negative) Lyme Disease IgM Ab (Negative) SARS-CoV-2 (PCR) (Negative) Influenza Type A (PCR) (Neg) Influenza Type B (PCR) (Neg) RSV (RT-PCR) (Neg) 08/27/22 Range/Units 14:41 WBC (4.8-10.8) K/ul RBC (3.93-5.22) M/uL Hgb (12.0-16.0) g/dl Hct (34.1-44.9) % MCV (80.0-100.0) fL MCH (25.0-34.0) pg MCHC (32.0-36.0) g/dL RDW Std Deviation (36.4-46.3) fL RDW Coeff of [place] (11.5-14.5) % Plt Count (130-400) K/uL MPV (9.4-12.3) fL Immature Gran % (Auto) % Neut % (Auto) % Lymph % (Auto) % [place] % (Auto) % Eos % (Auto) % Baso % (Auto) % Neut # (Auto) (1.4-6.5) K/uL Lymph # (Auto) (1.2-3.4) K/uL [place] # (Auto) (0.24-0.82) K/uL Eos # (Auto) (0-0.50) K/uL Baso # (Auto) (0-0.2) K/uL Immature Gran # (Auto) (0.00-0.02) K/uL ESR (0-30) mm/hr PT (9.0-12.0) Seconds INR (0.9-1.1) APTT (21.0-31.0) Seconds PTT Ratio VBG pH 7.50 H (7.36-7.41) VBG pCO2 38 (38-50) mmHg VBG pO2 56 mmHg VBG HCO3 30 mmol/L VBG O2 Saturation 90.9 % VBG Base Excess 6.1 mEq/L Carboxyhemoglobin % THgb Sodium (136-145) mmol/L Potassium (3.5-5.1) mmol/L Chloride (98-107) mmol/L Carbon Dioxide (21-32) mmol/L Anion Gap (3-11) BUN (6-23) mg/dl Creatinine (0.6-1.2) mg/dl Est Cr Clr Drug Dosing ml/min Est GFR ( Amer) ml/min Est GFR (Non-Af Amer) ml/min BUN/Creatinine Ratio (10-20) Glucose (70-99(Fasting)) mg/dl POC Glucose (70-99) mg/dl Calcium (8.5-10.1) mg/dl Total Bilirubin (0.2-1.0) mg/dl AST (13-39) U/L ALT (7-52) U/L Alkaline Phosphatase (34-104) U/L Troponin I High Sens (0-14) pg/ml C-Reactive Protein (0-0.5) mg/dl B-Natriuretic Peptide (0-100) pg/ml Total Protein (6.0-8.3) gm/dl Albumin (3.4-5.0) gm/dl Globulin (2.5-4.0) gm/dl Albumin/Globulin Ratio (0.9-2) Procalcitonin (0-0.5) ng/ml Urine Color Urine Appearance (Clear) Urine pH (4.5-7.5) Ur Specific [place] (1.000-1.030) Urine Protein (Negative) Urine Glucose (UA) (Negative) Urine Ketones (Negative) Urine Blood (Negative) Urine Nitrite (Negative) Urine Bilirubin (Negative) Urine Urobilinogen (Negative) Ur Leukocyte Esterase (Negative) Urine WBC (Auto) (0-5) /hpf Urine RBC (Auto) (0-4) /hpf U Hyaline Cast (Auto) (0-5) /lpf U Epithel Cells (Auto) (0-5) /lpf Urine Bacteria (Auto) (Negative) Lyme Disease IgG Ab (Negative) Lyme Disease IgM Ab (Negative) SARS-CoV-2 (PCR) (Negative) Influenza Type A (PCR) (Neg) Influenza Type B (PCR) (Neg) RSV (RT-PCR) (Neg) Administered Medications Discontinued Medications Acetaminophen (Acetaminophen 500 Mg Tab) Confirm Administered Dose 500 mg .[facility] Stop: 08/27/22 10:38 Last Admin: 08/27/22 10:53 Dose: Not Given Documented By: JOVAN Acetaminophen (Acetaminophen 500 Mg Tab) 1,000 mg PO NOW STA Stop: 08/27/22 10:42 Last Admin: 08/27/22 10:43 Dose: 1,000 mg Documented By: JOVAN Furosemide (Furosemide 40 Mg/4 Ml Vial) 40 mg IV ONE ONE Stop: 08/27/22 10:21 Last Admin: 08/27/22 10:31 Dose: 40 mg Documented By: JOVAN Ceftriaxone Sodium (Rocephin) 2,000 mg in 70 mls @ 140 mls/hr IV NOW STA Stop: 08/27/22 13:03 Last Infusion: 08/27/22 13:27 Dose: 0 mls/hr Documented By: Admin: 08/27/22 12:57 Dose: 140 mls/hr Documented By: MONSE Imaging Data Radiologist's Impression: Chest X-Ray 08/27/22 08:28 XR chest 1V portable CLINICAL HISTORY: Dyspnea TECHNIQUE: Single frontal radiograph of the chest was obtained. Comparison: Comparison is made to chest radiograph 02/15/2021 FINDINGS: Dual lead pacemaker is seen. Calcified aortic knob is seen. The lungs are clear. No evidence of pleural effusion or pneumothorax. Bilateral shoulder arthroplasties are seen. IMPRESSION: No acute abnormalities and in particular no evidence of pneumonia. ACT 112: Negative or not required by law. Electronically signed by: Branden Cohen M.D. 08/27/2022 9:22 AM Discharge Plan Visit Data Chief Complaint: Shortness of Breath/Dyspnea ED Provider: Luiz Carmona Discharge Problem: Pulmonary edema, Fever, Elevated troponin I level Patient Disposition: Being Evaluated by Hospitalist Discharge Instructions Interventions: ED Discharge Assessment Last Done: 08/27/22 14:34 Forms Stand Alone Forms: My [facility] [employer] Prescriptions Prescriptions: No Action potassium chloride 10 mEq tablet extended release 10 meq PO DAILY Incruse Ellipta 62.5 mcg/actuation blister with device 1 inh inhalation QAM isosorbide mononitrate 30 mg tablet extended release 24 hr 30 mg PO DAILY famotidine [Pepcid] 20 mg tablet 20 mg PO DAILY PRN (Reason: gastric reflux) multivitamin Tablet 1 tab PO QAM metoprolol succinate 100 mg tablet extended release 24 hr 100 mg PO QAM aspirin 81 mg Tablet,Delayed Release (Dr/Ec) 81 mg PO QAM nifedipine 60 mg tablet extended release 24hr 60 mg PO QAM simvastatin 20 mg tablet 20 mg PO HS fluoxetine 20 mg capsule 20 mg PO BID calcium carbonate-vitamin D3 [Oyster Shell Calcium-Vit D3] 500 mg(1,250mg) - 200 unit Tablet 1 tab PO QAM omega 3-[id number]-itx-fish oil [Fish Oil] 1,000 mg (120 mg-180 mg) Capsule 1 cap PO BID PreserVision AREDS-2 [id number] an-rvvz-[id number]-mg Capsule 1 tab PO BID nystatin-triamcinolone 100,000-0.1 unit/g-% cream 1 applic TOPICAL UD PRN (Reason: fungal rash) insulin glargine [Lantus Solostar U-100 Insulin] 100 unit/mL (3 mL) insulin pen 18 unit SC HS losartan 100 mg tablet 100 mg PO DAILY acetaminophen [Tylenol Extra Strength] 500 mg Tablet 500 - 1,000 mg PO DAILY MDD 3 GRAMS/24 HOURS PRN (Reason: Pain) ipratropium-albuterol 0.5 mg-3 mg(2.5 mg base)/3 mL solution for nebulization 3 ml NEB QID PRN (Reason: Shortness Of Breath Or Wheezing) Eliquis 5 mg tablet 5 mg PO BID amoxicillin 500 mg Capsule 2,000 mg PO DIRECTED PRN (Reason: 1 HOUR PRIOR TO DENTAL APPT.) fluticasone propion-salmeterol [Wixela Inhub] 250-50 mcg/dose Blister With Dev ice 1 inh INHALATION BID Coricidin HBP Chest [place]-Cough 10-200 mg Capsule 1 tab-cap PO DIRECTED PRN (Reason: Cough) acetaminophen [Tylenol Extra Strength] 500 mg Tablet 500 mg PO BID MDD 3 GRAM/24 HOURS docusate sodium 100 mg Capsule 100 mg PO DAILY PRN (Reason: Constipation) menthol-zinc oxide [Calmoseptine] 0.44-20.6 % Ointment 1 applic TOPICAL DIRECTED PRN (Reason: SKIN BREAKDOWN) Metamucil 3.4 gram/5.4 gram Powder 1 tbsp PO DAILY Rx Instructions: MIX WITH 8 OZ. FLUID omeprazole 40 mg capsule,delayed release(DR/EC) 40 mg PO QAM Referrals [facility]: [facility] [Primary Care Provider] -
[2022-08-27 09:03] LABS: Basophils # (auto) 0.03 K/uL (0-0.2); Basophils % (auto) 0.3 %; Eosinophils # (auto) 0.14 K/uL (0-0.50); Eosinophils % (auto) 1.5 %; Hemoglobin 10.2 g/dl (12.0-16.0); Immature Granulocytes # (auto) 0.03 K/uL (0.00-0.02); Immature Granulocytes % (auto) 0.3 %; Lymphocytes # (auto) 1.22 K/uL (1.2-3.4); Lymphocytes % (auto) 12.7 %; Mean Corpuscular Hemoglobin 31.3 pg (25.0-34.0); Mean Corpuscular Hgb Conc 32.9 g/dL (32.0-36.0); Mean Corpuscular Volume 95.1 fL (80.0-100.0); Mean Platelet Volume 9.4 fL (9.4-12.3); Monocytes # (auto) 0.99 K/uL (0.24-0.82); Monocytes % (auto) 10.3 %; Neutrophils # (auto) 7.22 K/uL (1.4-6.5); Neutrophils % (auto) 74.9 %; Platelet Count 205 K/uL (130-400); RDW Standard Deviation 45.1 fL (36.4-46.3); Red Blood Count 3.26 M/uL (3.93-5.22); White Blood Count 9.63 K/ul (4.8-10.8)
[2022-08-27 09:17] LABS: INR 1.1 (0.9-1.1); Partial Thromboplastin Time 28.2 Seconds (21.0-31.0); Prothrombin Time 11.3 Seconds (9.0-12.0)
[2022-08-27 09:19] LABS: Base Excess VBG 4.3 mEq/L; HCO3 VBG 30 mmol/L; Oxygen Saturation VBG < 60.0 %; PCO2 VBG 47 mmHg (38-50); PO2 VBG 22 mmHg; pH VBG 7.41 (7.36-7.41)
--- NOTE | 2022-08-27 09:24 | XRay Report ---
XR chest 1V portable CLINICAL HISTORY: Dyspnea TECHNIQUE: Single frontal radiograph of the chest was obtained. Comparison: Comparison is made to chest radiograph 02/15/2021 FINDINGS: Dual lead pacemaker is seen. Calcified aortic knob is seen. The lungs are clear. No evidence of pleur al effusion or pneumothorax. Bilateral shoulder arthroplasties are seen. IMPRESSION: No acute abnormalities and in particular no evidence of pneumonia. ACT 112: Negative or not required by law. Electronically signed by: Branden Cohen M.D. 08/27/2022 9:22 AM
[2022-08-27 09:54] LABS: Troponin I High Sensitivity 20.9 pg/ml (0-14)
[2022-08-27 10:00] LABS: Albumin Globulin Ratio 1.2 (0.9-2); Albumin Level 3.7 gm/dl (3.4-5.0); BUN Creatinine Ratio 12.5 (10-20); Bilirubin,Total 0.7 mg/dl (0.2-1.0); Calcium 9.3 mg/dl (8.5-10.1); Creatinine Clr Calc Pharmacy 34.3 ml/min; Est GFR (African American) 60.8 ml/min; Est GFR (Non-African American) 52.4 ml/min; Globulin 3.1 gm/dl (2.5-4.0); Potassium 4.2 mmol/L (3.5-5.1); Total Protein 6.8 gm/dl (6.0-8.3)
[2022-08-27 10:13] LABS: Influenza A virus by PCR Negative (Neg); Influenza B virus by PCR Negative (Neg); RSV by PCR Negative (Neg); SARS CoV2 RNA(COVID-19)Cepheid NEGATIVE (Negative)
[2022-08-27] MEDS ORDERED: FUROSEMIDE 40 MG/4 ML VIAL IV ONE (10:20)
[2022-08-27] MEDS ORDERED: ACETAMINOPHEN 500 MG TAB ONE (10:37)
[2022-08-27] MEDS ORDERED: ACETAMINOPHEN 500 MG TAB PO STA (10:41)
[2022-08-27 11:32] LABS: Appearance Urine Clear (Clear); Bacteria Urine Automated Negative (Negative); Bilirubin Urine Negative (Negative); Blood Urine Negative (Negative); Cast Urine Automated 0 /lpf (0-5); Color Urine Yellow; Glucose Urine UA Negative (Negative); Ketones Urine Negative (Negative); Leukocyte Esterase Urine Negative (Negative); Nitrite Urine Negative (Negative); RBC Urine Automated 0-4 /hpf (0-4); Specific Gravity Urine 1.014 (1.000-1.030); Urobilinogen Urine Negative (Negative); pH Urine 8.5 (4.5-7.5)
[2022-08-27 11:34] LABS: Protein Urine 1+ (Negative)
[2022-08-27] MEDS ORDERED: cefTRIAXone SODIUM 2,000 MG/70 ML BAG IV STA (12:34)
[2022-08-27] MEDS ORDERED: MENTHOL-ZINC OXIDE 360 APPLN/120 GM TUBE EXT PRN (13:08)
[2022-08-27] MEDS ORDERED: DOCUSATE SODIUM 100 MG CAP PO PRN (13:08)
[2022-08-27] MEDS ORDERED: FAMOTIDINE 20 MG TAB PO PRN (13:08)
--- NOTE | 2022-08-27 13:28 | Electrocardiogram Report ---
Test Reason : Blood Pressure : / mmHG Vent. Rate : 079 BPM Atrial Rate : 079 BPM P-R Int : 240 ms QRS Dur : 132 ms QT Int : 378 ms P-R-T Axes : 000 -28 106 degrees QTc Int : 433 ms Atrial-paced rhythm with prolonged AV conduction Left bundle branch block Abnormal ECG When compared with ECG of 15-FEB-2021 21:53, No significant change was found Confirmed by Joshua Sullivan ([id number]) on 08/27/2022 1:28:13 PM Referred By: REFERRED SELF Confirmed By:Joshua Sullivan
--- NOTE | 2022-08-27 13:54 | History & Physical Report ---
Date of Service August 27, 2022 Assessment & Plan (1) Fever: Plan: 87 yo female with a fever Source is unknown. Urine is negative. BIOFIRE will be ordered; Inflammatory markers were elevated, procal negative Likely viral. Given cough, perhaps bronchitis, atelectasis. will continue ceftriaxone, ordered incentive spirometer and flutter valve (2) Elevated troponin I level: Plan: mild elevation, no chest pain. will repeat, check echo (3) Pacemaker: Plan: Patient has pacemaker (4) Hyperlipidemia: Plan: resume home meds (5) Chronic kidney disease, stage III (moderate): Plan: creatinine appears at baseline (6) Altered mental status: Plan: Patient has been having gradual worsening dementia, especially with word finding. Hpwever this past few days this has worsened. (7) HTN (hypertension): Plan: resume home meds (8) Conjunctivitis: Plan: Left eye, will order polymyxin/triethprim sulfate drops q3h/ 6 drops in 24 hours max. History of Present Illness Chief Complaint: fever Primary Care Provider: [employer], [facility] 87 yo female with PMH of CHF, has come into the hospital from [facility]. Patient has been having SOB and a worsening cough over the past 2 weeks which has gradually worsened. There appears to be sputum production but patient is not able to decribe it. Patient is a poor historian, however her daughter who is a nurse is at bedside. Over the past 48 hours, she has been having fevers which have been difficult to control at the [facility] It appears over the past year her memory has worsened, where it is difficult for the patient to remember words. However over the past 2 days, her word finding has worsened even more. Her daughter also reports normally, the patient can live on her own [facility] the [facility]. Allergies Allergy/AdvReac Type Severity Reaction Status Date / Time No Known Allergies Allergy Verified 07/25/22 15:14 Home Medications Medication Instructions Recorded Confirmed Type aspirin 81 mg tablet,delayed 81 mg PO QAM 02/02/19 08/27/22 History release calcium carbonate 500 mg-vitamin 1 tab PO QAM 02/02/19 08/27/22 History D3 5 mcg (200 unit) tablet (Oyster Shell Calcium-Vitamin D3) fluoxetine 20 mg capsule 20 mg PO BID 02/02/19 08/27/22 History metoprolol succinate 100 mg 100 mg PO QAM 02/02/19 08/27/22 History tablet,extended release 24 hr multivitamin 1 tab PO QAM 02/02/19 08/27/22 History nifedipine 60 mg tablet,extended 60 mg PO QAM 02/02/19 08/27/22 History release 24 hr omega 7-xja-atq-fish oil 1,000 mg 1 cap PO BID 02/02/19 08/27/22 History (120 mg-180 mg) capsule (Fish Oil) simvastatin 20 mg tablet 20 mg PO HS 02/02/19 08/27/22 History vit C 250 mg-vit E 90 mg-zinc 40 1 tab PO BID 02/02/19 08/27/22 History mg-copper 1 xp-zpztsr-yfddcn capsule (PreserVision AREDS-2) losartan 100 mg tablet 100 mg PO DAILY 03/11/19 08/27/22 History potassium chloride 10 mEq 10 meq PO DAILY 06/14/19 08/27/22 History tablet,extended release acetaminophen 500 mg tablet 500 - 1,000 mg PO DAILY PRN Pain 07/26/19 08/27/22 History (Tylenol Extra Strength) ipratropium 0.5 mg-albuterol 3 mg 3 ml NEB QID PRN Shortness Of 07/26/19 08/27/22 History (2.5 mg base)/3 mL nebulization Breath Or Wheezing soln nystatin-triamcinolone 100,000 1 applic topical UD PRN fungal rash 05/02/20 08/27/22 History unit/g-0.1 % topical cream insulin glargine 100 unit/mL (3 18 unit SC HS 06/11/20 08/27/22 History mL) subcutaneous pen (Lantus Solostar U-100 Insulin) apixaban 5 mg tablet (Eliquis) 5 mg PO BID 06/25/20 08/27/22 History famotidine 20 mg tablet (Pepcid) 20 mg PO DAILY PRN gastric reflux 06/30/20 08/27/22 History umeclidinium 62.5 mcg/actuation 1 inh inhalation QAM 01/05/21 08/27/22 History blister powder for inhalation (Incruse Ellipta) acetaminophen 500 mg tablet 500 mg PO BID 02/15/21 08/27/22 History (Tylenol Extra Strength) amoxicillin 500 mg capsule 2,000 mg PO DIRECTED PRN 1 HOUR 02/15/21 08/27/22 History PRIOR TO DENTAL APPT. dextromethorphan-guaifenesin 10 1 tab-cap PO DIRECTED PRN Cough 02/15/21 08/27/22 History mg-200 mg capsule (Coricidin HBP Chest Congestion-Cough) docusate sodium 100 mg capsule 100 mg PO DAILY PRN Constipation 02/15/21 08/27/22 History fluticasone 250 mcg-salmeterol 50 1 inh inhalation BID 02/15/21 08/27/22 History mcg/dose blistr powdr for inhalation (Wixela Inhub) menthol 0.44 %-zinc oxide 20.6 % 1 applic topical DIRECTED PRN 02/15/21 08/27/22 History topical ointment (Calmoseptine) SKIN BREAKDOWN omeprazole 40 mg capsule,delayed 40 mg PO QAM 02/15/21 08/27/22 History release psyllium husk 3.4 gram/5.4 gram 1 tbsp PO DAILY 02/15/21 08/27/22 History oral powder (Metamucil) isosorbide mononitrate 30 mg 30 mg PO DAILY 07/25/22 08/27/22 History tablet,extended release 24 hr Past Med/Surg History Medical History (Updated 08/28/22 @ 06:43 by Tacos Vila) Asthma Essential (primary) hypertension Frozen shoulder Hyperlipidemia Pacemaker Surgical History H/O bilateral cataract extraction History of left hip replacement History of right hip replacement History of total abdominal hysterectomy and bilateral salpingo-oophorectomy Family History Father Cancer laryngeal (smoker) Mother Ovarian cancer Social History Smoking Status: Former smoker Tobacco Type: Cigarettes Cigarettes Per Day: <1/2 ppd x 40 years; Smoking End Date: 1964; Second Hand Exposure: No; Hx Alcohol Use: No Hx Substance Use: No Preferred Language: Mauritanian Communication Ability: Effective Coastal Tug Mate Required: No Beliefs That Will Affect Care: None marital status: / Current Living Situation: Personal Care Facility Current Living Situation Comment: [facility] current occupational status: 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) Other Information That Helps Us Care for You: No other: 2 daughters, 1 son Feels Safe at Home: Yes Safety Concerns: Feels Safe At This Time Assistive Devices: Denture - Upper, Denture - Lower and Glasses Review of Systems Review of Systems: Unobtainable due to cognitive status Physical Exam Constitutional: WD/WN, vitals as above Eyes: PERRL, conjunctivae normal, anicteric sclerae ENMT: external ear and nose normal, oropharynx normal Neck: trachea midline, no thyromegaly Respiratory: normal respiratory effort, lungs clear to auscultation Cardiovascular: RRR, no murmur, no edema Gastrointestinal (Abdomen): normal bowel sounds, soft, nontender, no hepatosplenomegaly Musculoskeletal: no cyanosis or clubbing, extremities motor strength 5/5 Skin: no rashes, warm and dry Neurologic: PERRL, EOMI, accommodation nl, no face palsy, no dysarthria Psychiatric: A+Ox3, euthymic affect Lymphatic: no cervical or axillary lymphadenopathy Results & Data Results & Data ([facility]) Vital Signs (Past 12 Hours) Vital Signs Temp Pulse Pulse Resp BP BP Pulse Ox 08/27/22 13:00 87 19 176/102 H 95 08/27/22 09:24 37.8 C H 08/27/22 08:28 96 08/27/22 07:59 80 18 96 08/27/22 07:59 08/27/22 07:59 38.4 C H 80 16 163/74 H 96 O2 Del Method O2 Flow Rate 08/27/22 13:00 Nasal Cannula 2 08/27/22 09:24 08/27/22 08:28 08/27/22 07:59 Room Air 08/27/22 07:59 Room Air 08/27/22 07:59 PG Care Time/CCT Total # of Minutes Spent Total Time Spent with Patient: Total time spent is greater than 50% in coordination of care (as documented) at patient's floor/unit and/or counseling patient: Coding Level of Care Code 35957 Initial Inpt Care Lvl 3 Diagnoses Fever R50.9 Fever type: unspecified Elevated troponin I level R77.8 Pacemaker Z95.0 Hyperlipidemia E78.2 Hyperlipidemia type: mixed hyperlipidemia Chronic kidney disease, stage III (moderate) N18.32 Chronic kidney disease stage 3 subtype: stage 3b (GFR 30-44) Altered mental status R41.0 Altered mental status type: disorientation HTN (hypertension) I10 Hypertension type: essential hypertension Conjunctivitis H10.9 (1) Fever Fever type: unspecified Qualified Code(s): R50.9 - Fever, unspecified (2) Chronic kidney disease, stage III (moderate) Chronic kidney disease stage 3 subtype: stage 3b (GFR 30-44) Qualified Code(s): N18.32 - Chronic kidney disease, stage 3b (3) Hyperlipidemia Hyperlipidemia type: mixed hyperlipidemia Qualified Code(s): E78.2 - Mixed hyperlipidemia (4) Altered mental status Altered mental status type: disorientation Qualified Code(s): R41.0 - Disorientation, unspecified (5) HTN (hypertension) Hypertension type: essential hypertension Qualified Code(s): I10 - Essential (primary) hypertension
[2022-08-27 14:40] LABS: Procalcitonin 0.17 ng/ml (0-0.5)
[2022-08-27 14:54] LABS: Lyme Ab IgG w/WB Rflx Negative (Negative); Lyme Ab IgM w/WB Rflx Negative (Negative)
[2022-08-27 14:57] LABS: Base Excess VBG 6.1 mEq/L; HCO3 VBG 30 mmol/L; Oxygen Saturation VBG 90.9 %; PCO2 VBG 38 mmHg (38-50); PO2 VBG 56 mmHg
[2022-08-27] MEDS ORDERED: CARBOHYDRATES FOR HYPOGLYCEMIA PO PRN (15:30)
[2022-08-27] MEDS ORDERED: GLUCOSE 10 TAB/TUBE PO PRN (15:30)
[2022-08-27] MEDS ORDERED: GLUCOSE 40% GEL 15 GM TUBE PO PRN (15:30)
[2022-08-27] MEDS ORDERED: GLUCAGON FOR INJ 1 MG VIAL IM PRN (15:30)
[2022-08-27] MEDS ORDERED: DEXTROSE 50% 50 ML SYRINGE IV PRN (15:30)
[2022-08-27] MEDS: ACETAMINOPHEN 325 MG TAB PO PRN (15:47)
[2022-08-27] MEDS: TRIMETHOPRIM/POLYMYXIN B OP SCH ×3 (17:43→22:00)
[2022-08-27 19:06] LABS: Adenovirus PCR Not Detected (NotDetected); Bordetella parapertussis PCR Not Detected (NotDetected); Bordetella pertussis PCR Not Detected (NotDetected); Chlamydia pneumoniae PCR Not Detected (NotDetected); Coronavirus 229E PCR Not Detected (NotDetected); Coronavirus CoV-2 (COVID19)PCR Not Detected (NotDetected); Coronavirus HKU1 PCR Not Detected (NotDetected); Coronavirus NL63 PCR Not Detected (NotDetected); Coronavirus OC43PCR Not Detected (NotDetected); Human Metapneumovirus PCR Not Detected (NotDetected); Influenza A PCR Not Detected (NotDetected); Influenza B PCR Not Detected (NotDetected); Mycoplasma pneumoniae PCR Not Detected (NotDetected); Parainfluenza Virus 1 PCR Not Detected (NotDetected); Parainfluenza Virus 2 PCR Not Detected (NotDetected); Parainfluenza Virus 3 PCR Not Detected (NotDetected); Parainfluenza Virus 4 PCR Not Detected (NotDetected); Respiratory Syncytial VirusPCR Not Detected (NotDetected); Rhinovirus/Enterovirus PCR Not Detected (NotDetected)
[2022-08-27] MEDS: FLUoxetine HCL 20 MG CAP PO SCH (20:21)
[2022-08-27] MEDS: APIXABAN 5 MG TABLET PO SCH (20:21)
[2022-08-27] MEDS: SIMVASTATIN 20 MG TAB PO SCH (20:22)
[2022-08-27] MEDS ORDERED: LANTUS PER UNIT CHARGE SC SCH (21:00)
[2022-08-28] MEDS: TRIMETHOPRIM/POLYMYXIN B OP SCH ×8 (01:15→22:20)
--- NOTE | 2022-08-28 07:18 | XRay Report ---
KUB CLINICAL HISTORY: Abdominal distention. COMPARISON STUDY: CT of the abdomen and pelvis February 15, 2021. FINDINGS: Bilateral hip arthroplasties are incidentally noted. There is dextroscoliosis of the lumbar spine. There is no evidence for a bowel obstruction. Calcified granulomas within the spleen are inci dentally noted. There are no urinary calculi. Pelvic calcifications favor phleboliths. Moderate amoun t of stool is noted. IMPRESSION: No evidence for a bowel obstruction. ACT 112: Negative or not required by law. Electronically signed by: Sedrick Villa M.D. 08/28/2022 7:17 AM
[2022-08-28 07:23] LABS: Basophils # (auto) 0.04 K/uL (0-0.2); Basophils % (auto) 0.4 %; Eosinophils # (auto) 0.09 K/uL (0-0.50); Eosinophils % (auto) 0.9 %; Hematocrit (blood only) 32.5 % (34.1-44.9); Hemoglobin 10.7 g/dl (12.0-16.0); Immature Granulocytes # (auto) 0.03 K/uL (0.00-0.02); Immature Granulocytes % (auto) 0.3 %; Lymphocytes # (auto) 1.17 K/uL (1.2-3.4); Lymphocytes % (auto) 11.9 %; Mean Corpuscular Hgb Conc 32.9 g/dL (32.0-36.0); Mean Corpuscular Volume 94.2 fL (80.0-100.0); Mean Platelet Volume 9.3 fL (9.4-12.3); Monocytes # (auto) 1.01 K/uL (0.24-0.82); Monocytes % (auto) 10.3 %; Neutrophils % (auto) 76.2 %; Platelet Count 214 K/uL (130-400); RDW Coefficient of Variation 12.7 % (11.5-14.5); Red Blood Count 3.45 M/uL (3.93-5.22); White Blood Count 9.84 K/ul (4.8-10.8)
--- NOTE | 2022-08-28 07:40 | XRay Report ---
XR chest 1V portable CLINICAL HISTORY: fever/ cough COMPARISON STUDY: Chest radiograph August 27, 2022. FINDINGS: Left subclavian pacer is in place. 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 There is no pneumothorax. No definite pleural effusion. Lung volumes a re mildly diminished. This may account for apparent pulmonary vascular congestion. Cardiomediastinal silhouette is stable. IMPRESSION: No acute cardiopulmonary findings. ACT 112: Negative or not required by law. Electronically signed by: Sedrick Villa M.D. 08/28/2022 7:39 AM
[2022-08-28 07:51] LABS: Albumin Globulin Ratio 1.1 (0.9-2); Albumin Level 3.6 gm/dl (3.4-5.0); BUN Creatinine Ratio 14.9 (10-20); Bilirubin,Total 0.6 mg/dl (0.2-1.0); C Reactive Protein 10.56 mg/dl (0-0.5); Calcium 9.2 mg/dl (8.5-10.1); Creatinine Clr Calc Pharmacy 35.7 ml/min; Est GFR (African American) 57.2 ml/min; Est GFR (Non-African American) 49.3 ml/min; Globulin 3.3 gm/dl (2.5-4.0); Total Protein 6.9 gm/dl (6.0-8.3)
[2022-08-28 07:52] LABS: Troponin I High Sensitivity 20.7 pg/ml (0-14)
[2022-08-28] MEDS: ACETAMINOPHEN 325 MG TAB PO PRN (08:18)
[2022-08-28] MEDS: APIXABAN 5 MG TABLET PO SCH ×2 (08:19→20:05)
[2022-08-28] MEDS: METOPROLOL SUCC 50MG EXT REL TAB PO SCH (08:19)
[2022-08-28] MEDS: PANTOprazole 40 MG TAB PO SCH (08:19)
[2022-08-28] MEDS: FLUoxetine HCL 20 MG CAP PO SCH ×2 (08:19→20:05)
[2022-08-28] MEDS: ISOSORBIDE MONO EXTENDED REL 30 MG TABCR PO SCH (08:19)
[2022-08-28] MEDS: ASPIRIN 81 MG ECTAB PO SCH (08:19)
[2022-08-28] MEDS: UMECLIDINIUM BROMIDE 62.5MCG/BLISTER 7 PUFFS/INHALER INH SCH (08:20)
[2022-08-28] MEDS ORDERED: NIFEdipine EXTENDED REL 30 MG TABCR PO SCH (09:00)
--- NOTE | 2022-08-28 15:01 | Hospitalist Progress Note ---
Date of Service August 28, 2022 Assessment & Plan (1) Fever: Plan: 87 yo female with a fever Source is unknown. Urine is negative. Blood cultures negative so far. BIOFIRE viral markers all negative including respiratory viruses. procal negative Likely viral. Stop ceftriaxone (2) Hypoglycemia: Plan: Change Lantus to 8 units at night. Has been getting 18 units for many years. Was hypoglycemic in the personal-custodial 3 days ago per staffI spoke with Chelsi just now. (3) Elevated troponin I level: Plan: mild elevation, no chest pain. will repeat, Echo done yesterday but not yet read. No murmur. Get cardiology involved because troponin remains in the 20s. EKG shows an old left bundle branch block and a paced rhythm. Telemetry shows a paced rhythm (4) Pacemaker: Plan: Patient has pacemaker. Interrogated in July. Cardiology note reviewed. Has sinus node dysfunction and intermittent atrial fibrillation (5) Hyperlipidemia: Plan: resume home meds (6) Chronic kidney disease, stage III (moderate): Plan: creatinine appears at baseline (7) Altered mental status: Plan: Discussed with etelvina Mcguirethe patient had worsened short-term memory for the last year or so. Has diagnosis of dementia, no recent mental status changes Will check B12 and TSH with morning labs (8) HTN (hypertension): Plan: Now hypotensive. Blood pressure 87 systolic when she sat up in a chair. I decreased nifedipine to 30 mg and 60 mg continue metoprolol 100 daily. (9) Conjunctivitis: Plan: Left eye, will order polymyxin/triethprim sulfate drops q3h/ 6 drops in 24 hours max. (10) Atrial fibrillation: Plan: Intermittent seen when plan pacemaker interrogated. Continue Eliquis 5 twice daily. Renal function normal. (11) Normochromic normocytic anemia: Plan: Stable. Plan The patient has been DNR/DNI for some time now. I have called etelvina Vargas and confirmed it. CODE STATUS changed Admission and Anticipated Discharge Date Admission Date: August 27, 2022 Subjective Patient states she feels good. Review of systems states she has not had chest pain or shortness of breath but has been coughing since yesterday. Review of systems underbite reliable because of the patient's dementia. I called Chelsi velez boilermaker central steam plant in her personal custodial who states the patient has had no change in mental status in the last few days but was brought in 3 days ago to the ER for fever which she had for had for day. Has been no nausea/vomiting/diarrhea. There has been greenish sputum when she coughs. She uses a walker in the personal custodial and is DNR. Hypoglycemia in the 60s was noted this morning. The patient is on 18 units of Lantus insulin for the last many years according to personal-custodial. Physical Exam Physical Exam: Pleasant overweight elderly lady, sitting in chair, tries hard to recall answers to's many questions but mostly not able to. 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, hard of hearing Psych: Calm, insight appears limited Results & Data Results & Data ([facility]) Vital Signs (Past 12 Hours) Vital Signs Temp Pulse Pulse Resp BP Pulse Ox O2 Del Method 08/28/22 12:11 69 101/63 08/28/22 11:30 70 17 93/55 L 92 Nasal Cannula 08/28/22 11:28 36.8 C 68 17 86/50 L 88 L Room Air 08/28/22 09:35 37.9 C H 08/28/22 09:13 81 08/28/22 08:54 Nasal Cannula 08/28/22 07:20 39.1 C H 87 19 147/75 H 91 Nasal Cannula O2 Flow Rate 08/28/22 12:11 08/28/22 11:30 2 08/28/22 11:28 08/28/22 09:35 08/28/22 09:13 08/28/22 08:54 2 08/28/22 07:20 2.0 Laboratory Results Abnormal lab results 08/27/22 08/27/22 08/28/22 Range/Units 16:24 20:02 06:46 RBC 3.45 L (3.93-5.22) M/uL Hgb 10.7 L (12.0-16.0) g/dl Hct 32.5 L (34.1-44.9) % MPV 9.3 L (9.4-12.3) fL Neut # (Auto) 7.50 H (1.4-6.5) K/uL Lymph # (Auto) 1.17 L (1.2-3.4) K/uL [place] # (Auto) 1.01 H (0.24-0.82) K/uL Immature Gran # (Auto) 0.03 H (0.00-0.02) K/uL ESR (0-30) mm/hr Sodium (136-145) mmol/L Glucose (70-99(Fasting)) mg/dl POC Glucose 100 H 116 H (70-99) mg/dl Troponin I High Sens (0-14) pg/ml C-Reactive Protein (0-0.5) mg/dl 08/28/22 08/28/22 08/28/22 Range/Units 06:46 06:46 07:03 RBC (3.93-5.22) M/uL Hgb (12.0-16.0) g/dl Hct (34.1-44.9) % MPV (9.4-12.3) fL Neut # (Auto) (1.4-6.5) K/uL Lymph # (Auto) (1.2-3.4) K/uL [place] # (Auto) (0.24-0.82) K/uL Immature Gran # (Auto) (0.00-0.02) K/uL ESR 95 H (0-30) mm/hr Sodium 135 L (136-145) mmol/L Glucose 63 L (70-99(Fasting)) mg/dl POC Glucose 67 L* (70-99) mg/dl Troponin I High Sens 20.7 H (0-14) pg/ml C-Reactive Protein 10.56 H (0-0.5) mg/dl 08/28/22 08/28/22 Range/Units 07:05 11:14 RBC (3.93-5.22) M/uL Hgb (12.0-16.0) g/dl Hct (34.1-44.9) % MPV (9.4-12.3) fL Neut # (Auto) (1.4-6.5) K/uL Lymph # (Auto) (1.2-3.4) K/uL [place] # (Auto) (0.24-0.82) K/uL Immature Gran # (Auto) (0.00-0.02) K/uL ESR (0-30) mm/hr Sodium (136-145) mmol/L Glucose (70-99(Fasting)) mg/dl POC Glucose 65 L* 115 H (70-99) mg/dl Troponin I High Sens (0-14) pg/ml C-Reactive Protein (0-0.5) mg/dl Medications Administered Home Medications Medication Instructions Recorded Confirmed Last Taken aspirin 81 mg tablet,delayed 81 mg PO QAM 02/02/19 08/27/22 02/15/21 release calcium carbonate 500 mg-vitamin 1 tab PO QAM 02/02/19 08/27/22 02/15/21 D3 5 mcg (200 unit) tablet (Oyster Shell Calcium-Vitamin D3) fluoxetine 20 mg capsule 20 mg PO BID 02/02/19 08/27/22 02/15/21 metoprolol succinate 100 mg 100 mg PO QAM 02/02/19 08/27/22 02/15/21 tablet,extended release 24 hr multivitamin 1 tab PO QAM 02/02/19 08/27/22 02/15/21 nifedipine 60 mg tablet,extended 60 mg PO QAM 02/02/19 08/27/22 02/15/21 release 24 hr omega 5-wjn-mxs-fish oil 1,000 mg 1 cap PO BID 02/02/19 08/27/22 02/15/21 (120 mg-180 mg) capsule (Fish Oil) simvastatin 20 mg tablet 20 mg PO HS 02/02/19 08/27/22 02/14/21 vit C 250 mg-vit E 90 mg-zinc 40 1 tab PO BID 02/02/19 08/27/22 02/15/21 mg-copper 1 il-conuiy-hrzduu capsule (PreserVision AREDS-2) losartan 100 mg tablet 100 mg PO DAILY 03/11/19 08/27/22 02/15/21 potassium chloride 10 mEq 10 meq PO DAILY 06/14/19 08/27/22 02/15/21 tablet,extended release acetaminophen 500 mg tablet 500 - 1,000 mg PO DAILY PRN Pain 07/26/19 08/27/22 06/24/20 (Tylenol Extra Strength) ipratropium 0.5 mg-albuterol 3 mg 3 ml NEB QID PRN Shortness Of 07/26/19 08/27/22 05/02/20 05:00 (2.5 mg base)/3 mL nebulization Breath Or Wheezing soln nystatin-triamcinolone 100,000 1 applic topical UD PRN fungal rash 05/02/20 08/27/22 Unknown unit/g-0.1 % topical cream insulin glargine 100 unit/mL (3 18 unit SC HS 06/11/20 08/27/22 06/24/20 mL) subcutaneous pen (Lantus Solostar U-100 Insulin) apixaban 5 mg tablet (Eliquis) 5 mg PO BID 06/25/20 08/27/22 02/15/21 famotidine 20 mg tablet (Pepcid) 20 mg PO DAILY PRN gastric reflux 06/30/20 08/27/22 Unknown umeclidinium 62.5 mcg/actuation 1 inh inhalation QAM 01/05/21 08/27/22 02/15/21 blister powder for inhalation (Incruse Ellipta) acetaminophen 500 mg tablet 500 mg PO BID 02/15/21 08/27/22 Unknown (Tylenol Extra Strength) amoxicillin 500 mg capsule 2,000 mg PO DIRECTED PRN 1 HOUR 02/15/21 08/27/22 Unknown PRIOR TO DENTAL APPT. dextromethorphan-guaifenesin 10 1 tab-cap PO DIRECTED PRN Cough 02/15/21 08/27/22 Unknown mg-200 mg capsule (Coricidin HBP Chest Congestion-Cough) docusate sodium 100 mg capsule 100 mg PO DAILY PRN Constipation 02/15/21 08/27/22 Unknown fluticasone 250 mcg-salmeterol 50 1 inh inhalation BID 02/15/21 08/27/22 02/15/21 mcg/dose blistr powdr for inhalation (Wixela Inhub) menthol 0.44 %-zinc oxide 20.6 % 1 applic topical DIRECTED PRN 02/15/21 08/27/22 Unknown topical ointment (Calmoseptine) SKIN BREAKDOWN omeprazole 40 mg capsule,delayed 40 mg PO QAM 02/15/21 08/27/22 02/15/21 release psyllium husk 3.4 gram/5.4 gram 1 tbsp PO DAILY 02/15/21 08/27/22 02/15/21 oral powder (Metamucil) isosorbide mononitrate 30 mg 30 mg PO DAILY 07/25/22 08/27/22 Unknown tablet,extended release 24 hr Active Medications Generic Name Dose Route Start Last Admin Trade Name Freq PRN Reason Stop Dose Admin Acetaminophen 650 mg 08/27/22 15:20 08/28/22 08:18 Acetaminophen 325 Mg Tab PO 09/26/22 15:19 650 mg Q6H PRN Administration pain or fever Apixaban 5 mg 08/27/22 21:00 08/28/22 08:19 Apixaban 5 Mg Tablet PO 09/26/22 20:59 5 mg BID DONN Administration Aspirin 81 mg 08/28/22 09:00 08/28/22 08:19 Aspirin 81 Mg Ectab PO 09/27/22 08:59 81 mg QAM DONN Administration Fluoxetine HCl 20 mg 08/27/22 21:00 08/28/22 08:19 Fluoxetine Hcl 20 Mg Cap PO 09/26/22 20:59 20 mg BID DONN Administration Isosorbide Mononitrate 30 mg 08/28/22 09:00 08/28/22 08:19 Isosorbide [place] Extended Rel 30 Mg Tabcr PO 09/27/22 08:59 30 mg DAILY DONN Administration Metoprolol Succinate 100 mg 08/28/22 09:00 08/28/22 08:19 Metoprolol Succ 50mg Ext Rel Tab PO 09/27/22 08:59 100 mg QAM DONN Administration Miscellaneous 15 - 30 gm 08/27/22 15:30 08/28/22 07:05 Carbohydrates For Hypoglycemia PO 09/26/22 15:29 15 gm UD PRN Administration Hypoglycemia Treatment Pantoprazole Sodium 40 mg 08/28/22 09:00 08/28/22 08:19 Pantoprazole 40 Mg Tab PO 09/27/22 08:59 40 mg QAM DONN Administration Polymyxin/Trimethoprim Sulfate 1 drops 08/27/22 16:15 08/28/22 13:52 Trimethoprim/Polymyxin B OP 09/26/22 16:14 1 drops Q3H DONN Administration Simvastatin 20 mg 08/27/22 21:00 08/27/22 20:22 Simvastatin 20 Mg Tab PO 09/26/22 20:59 20 mg HS DONN Administration Umeclidinium [place] 1 puffs 08/28/22 09:00 08/28/22 08:20 Umeclidinium [place] 62.5mcg/Blister 7 Puffs/Inhaler INH 09/27/22 08:59 1 puffs QAM DONN Administration PG Care Time/CCT Total # of Minutes Spent Total Time Spent with Patient: Total time spent is greater than 50% in coordination of care (as documented) at patient's floor/unit and/or counseling patient: Coding Level of Care Code 18146 Subseq Hosp Care Lvl 3 Diagnoses Fever R50.9 Fever type: unspecified Hypoglycemia E16.2 Elevated troponin I level R77.8 Pacemaker Z95.0 Hyperlipidemia E78.2 Hyperlipidemia type: mixed hyperlipidemia Chronic kidney disease, stage III (moderate) N18.32 Chronic kidney disease stage 3 subtype: stage 3b (GFR 30-44) Altered mental status R41.0 Altered mental status type: disorientation HTN (hypertension) I10 Hypertension type: essential hypertension Conjunctivitis H10.9 Atrial fibrillation I48.91 Atrial fibrillation type: unspecified Normochromic normocytic anemia D64.9 (1) Fever Fever type: unspecified Qualified Code(s): R50.9 - Fever, unspecified (2) Chronic kidney disease, stage III (moderate) Chronic kidney disease stage 3 subtype: stage 3b (GFR 30-44) Qualified Code(s): N18.32 - Chronic kidney disease, stage 3b (3) Atrial fibrillation Atrial fibrillation type: unspecified Qualified Code(s): I48.91 - Unspecified atrial fibrillation (4) Hyperlipidemia Hyperlipidemia type: mixed hyperlipidemia Qualified Code(s): E78.2 - Mixed hyperlipidemia (5) Altered mental status Altered mental status type: disorientation Qualified Code(s): R41.0 - Disorientation, unspecified (6) HTN (hypertension) Hypertension type: essential hypertension Qualified Code(s): I10 - Essential (primary) hypertension
[2022-08-28] MEDS: SIMVASTATIN 20 MG TAB PO SCH (20:05)
[2022-08-28] MEDS: LANTUS PER UNIT CHARGE SQ SCH (20:40)
[2022-08-29] MEDS: TRIMETHOPRIM/POLYMYXIN B OP SCH ×8 (01:18→22:50)
[2022-08-29] MEDS ORDERED: METOPROLOL TARTRATE 1 MG/ML VIAL IV PRN (01:56)
[2022-08-29] MEDS ORDERED: HALOPERIDOL LACTATE 5 MG/ML 1 ML VIAL IM STA (02:05)
[2022-08-29] MEDS: FLUoxetine HCL 20 MG CAP PO SCH ×2 (08:15→20:20)
[2022-08-29] MEDS: ASPIRIN 81 MG ECTAB PO SCH (08:15)
[2022-08-29] MEDS: APIXABAN 5 MG TABLET PO SCH ×2 (08:15→20:20)
[2022-08-29] MEDS: METOPROLOL SUCC 50MG EXT REL TAB PO SCH (08:15)
[2022-08-29] MEDS: ISOSORBIDE MONO EXTENDED REL 30 MG TABCR PO SCH (08:16)
[2022-08-29] MEDS: UMECLIDINIUM BROMIDE 62.5MCG/BLISTER 7 PUFFS/INHALER INH SCH (08:16)
[2022-08-29] MEDS: PANTOprazole 40 MG TAB PO SCH (08:16)
[2022-08-29] MEDS ORDERED: NIFEdipine EXTENDED REL 30 MG TABCR PO SCH (09:00)
--- NOTE | 2022-08-29 12:03 | Cardiology Consultation ---
Date of Consultation August 29, 2022 Assessment & Plan (1) Paroxysmal atrial fibrillation with rapid ventricular response: (2) Demand ischemia: (3) S/P placement of cardiac pacemaker: (4) Anticoagulant long-term use: (5) HTN (hypertension): Plan 87-year-old woman with known paroxysmal atrial fibrillation status post dual- chamber pacemaker placement 2018 who presented with fever and evidence of hyperadrenergic state (modest hypotension with tachycardia) and was noted to have a mildly elevated but flat troponin curve. Suspect she had demand ischemia from hemodynamic lability and rapid atrial fibrillation resulting in mild troponin elevation. She did develop a transient recurrence of atrial fibrillation on telemetry, but this is apparently asymptomatic as she reports no chest pain, dyspnea, or palpitations. When she does have atrial fibrillation, the rate is suboptimally controlled (120-130 bpm). In order to better control her heart rate during paroxysms of atrial fibrillation, could switch from nifedipine to diltiazem, this will allow for concurrent blood pressure control and there is little concern for excess bradycardia since she has a pacemaker. Since she did receive a nifedipine dose this morning, would start with short acting diltiazem 60 mg today, discontinue nifedipine and initiate sustained-release diltiazem 120 mg daily starting tomorrow morning. Continue metoprolol succinate at 100 mg daily. She is chronically anticoagulated with full dose apixaban (appropriate since renal function is fairly normal and her weight is greater than 60 kg) as well as on antiplatelet agent (aspirin 81 mg daily). Since it does not appear that she had any recent cerebrovascular event or stenting, given increased bleeding risk without clear reduction in thromboembolic risk from this combination, would consider discontinuing aspirin. Given her current hemodynamic stability and asymptomatic status as well as the presence of a pacemaker, suspect these medication changes will address her current relatively minor cardiac issues without a high risk of adverse side effects. No plan for ischemic work-up given her advanced age and comorbidities and the absence of identifiable cardiac symptoms. Cardiology follow-up with Dr. Silva as outpatient. History of Present Illness Reason for Consultation: Iván. fib/RVR Requesting Physician: Felix Sepulveda MD Attending Physician: Felix Sepulveda MD History of Present Illness 87-year-old woman with history dual-chamber pacemaker placement for sick sinus syndrome, paroxysmal atrial fibrillation (apixaban/metoprolol), apparent moderate dementia, who resides in an assisted living facility, she was admitted 08/27/2022 with decline in mental status and fevers. Although her memory is poor, she was interactive and appropriate, she denied any episodes of chest discomfort or tachypalpitations recently. No reports by caregivers of patient reporting cardiac symptoms. She has had a nonproductive cough. On telemetry she was noted to have mostly a paced rhythm in the 70 bpm range with brief episodes of atrial fibrillation at rates of up to 120-130 bpm. Serial troponin curve was mildly elevated but flat (20.9 and 20.7). Echocardiogram showed normal systolic function with no wall motion abnormalities, mild pulmonary hypertension, no major valvular disease. At the time of my evaluation, she had no somatic complaints. Allergies Allergy/AdvReac Type Severity Reaction Status Date / Time No Known Allergies Allergy Verified 07/25/22 15:14 Home Medications Medication Instructions Recorded Confirmed Type aspirin 81 mg tablet,delayed 81 mg PO QAM 02/02/19 08/27/22 History release calcium carbonate 500 mg-vitamin 1 tab PO QAM 02/02/19 08/27/22 History D3 5 mcg (200 unit) tablet (Oyster Shell Calcium-Vitamin D3) fluoxetine 20 mg capsule 20 mg PO BID 02/02/19 08/27/22 History metoprolol succinate 100 mg 100 mg PO QAM 02/02/19 08/27/22 History tablet,extended release 24 hr multivitamin 1 tab PO QAM 02/02/19 08/27/22 History nifedipine 60 mg tablet,extended 60 mg PO QAM 02/02/19 08/27/22 History release 24 hr omega 7-rba-ryz-fish oil 1,000 mg 1 cap PO BID 02/02/19 08/27/22 History (120 mg-180 mg) capsule (Fish Oil) simvastatin 20 mg tablet 20 mg PO HS 02/02/19 08/27/22 History vit C 250 mg-vit E 90 mg-zinc 40 1 tab PO BID 02/02/19 08/27/22 History mg-copper 1 df-vhvelr-wbwvwh capsule (PreserVision AREDS-2) losartan 100 mg tablet 100 mg PO DAILY 03/11/19 08/27/22 History potassium chloride 10 mEq 10 meq PO DAILY 06/14/19 08/27/22 History tablet,extended release acetaminophen 500 mg tablet 500 - 1,000 mg PO DAILY PRN Pain 07/26/19 08/27/22 History (Tylenol Extra Strength) ipratropium 0.5 mg-albuterol 3 mg 3 ml NEB QID PRN Shortness Of 07/26/19 08/27/22 History (2.5 mg base)/3 mL nebulization Breath Or Wheezing soln nystatin-triamcinolone 100,000 1 applic topical UD PRN fungal rash 05/02/20 08/27/22 History unit/g-0.1 % topical cream insulin glargine 100 unit/mL (3 18 unit SC HS 06/11/20 08/27/22 History mL) subcutaneous pen (Lantus Solostar U-100 Insulin) apixaban 5 mg tablet (Eliquis) 5 mg PO BID 06/25/20 08/27/22 History famotidine 20 mg tablet (Pepcid) 20 mg PO DAILY PRN gastric reflux 06/30/20 08/27/22 History umeclidinium 62.5 mcg/actuation 1 inh inhalation QAM 01/05/21 08/27/22 History blister powder for inhalation (Incruse Ellipta) acetaminophen 500 mg tablet 500 mg PO BID 02/15/21 08/27/22 History (Tylenol Extra Strength) amoxicillin 500 mg capsule 2,000 mg PO DIRECTED PRN 1 HOUR 02/15/21 08/27/22 History PRIOR TO DENTAL APPT. dextromethorphan-guaifenesin 10 1 tab-cap PO DIRECTED PRN Cough 02/15/21 08/27/22 History mg-200 mg capsule (Coricidin HBP Chest Congestion-Cough) docusate sodium 100 mg capsule 100 mg PO DAILY PRN Constipation 02/15/21 08/27/22 History fluticasone 250 mcg-salmeterol 50 1 inh inhalation BID 02/15/21 08/27/22 History mcg/dose blistr powdr for inhalation (Wixela Inhub) menthol 0.44 %-zinc oxide 20.6 % 1 applic topical DIRECTED PRN 02/15/21 08/27/22 History topical ointment (Calmoseptine) SKIN BREAKDOWN omeprazole 40 mg capsule,delayed 40 mg PO QAM 02/15/21 08/27/22 History release psyllium husk 3.4 gram/5.4 gram 1 tbsp PO DAILY 02/15/21 08/27/22 History oral powder (Metamucil) isosorbide mononitrate 30 mg 30 mg PO DAILY 07/25/22 08/27/22 History tablet,extended release 24 hr Patient History Medical History (Updated 08/29/22 @ 12:27 by Efraín Wilkins MD) Asthma Dependence on supplemental oxygen Essential (primary) hypertension Former smoker Frozen shoulder Hyperlipidemia Pacemaker PAT (paroxysmal atrial tachycardia) Sinus node dysfunction Symptomatic bradycardia Syncope Surgical History (Updated 08/29/22 @ 12:19 by Efraín Wilkins MD) H/O bilateral cataract extraction History of left hip replacement History of right hip replacement History of total abdominal hysterectomy and bilateral salpingo-oophorectomy Family History Father Cancer laryngeal (smoker) Mother Ovarian cancer Social History Smoking Status: Former smoker Tobacco Type: Cigarettes Cigarettes Per Day: <1/2 ppd x 40 years; Smoking End Date: 1964; Second Hand Exposure: No; Hx Alcohol Use: No Hx Substance Use: No Preferred Language: Welsh Communication Ability: Effective [employer] Required: No Beliefs That Will Affect Care: None marital status: / Current Living Situation: Personal Care Facility [facility] current occupational status: retired 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 BP mildly hypertensive (150/70 mmHg) Pulse 76 bpm and regular Skin: no ecchymoses or generalized lesions. HEENT: unremarkable. Neck: Jugular venous pulse just above the clavicle at 90 degrees, no obvious carotid bruits. Lungs: Few basilar crackles with mildly decreased breath sounds but generally clear. Cardiac: regular rhythm, normal S1 and S2, no obvious murmur or gallop. Abdomen: benign. Extremities: no edema, pulses intact. Neurologic: Alert and interactive, reportedly forgetful, nonfocal. Results & Data ([facility]) Vital Signs (Past 12 Hours) Vital Signs Temp Pulse Pulse Resp BP BP Pulse Ox 08/29/22 08:00 08/29/22 07:12 97.7 F 76 17 150/70 H 94 08/29/22 02:50 98.2 F 104 H 16 140/68 95 08/29/22 02:07 117 H 145/70 H 08/29/22 01:48 98.7 F 117 H 16 145/70 H 94 O2 Del Method O2 Flow Rate 08/29/22 08:00 Room Air 08/29/22 07:12 Room Air 08/29/22 02:50 Nasal Cannula 08/29/22 02:07 08/29/22 01:48 Nasal Cannula 2 Laboratory Results Troponin in the 2020 range x2. Sodium 135 with otherwise normal electrolytes, BUN 15, creatinine 1.01. BNP of 195 is unremarkable given her age. Diagnostic Findings ECG showed AV electronically paced rhythm without obvious ST abnormalities. Compared with January 2021 ECG, no significant change. Chest x-ray day of admission and the following day was unremarkable. Echocardiogram as noted in HPI. PG Care Time/CCT Total # of Minutes Spent Total Time Spent with Patient: Total time spent is greater than 50% in coordination of care (as documented) at patient's floor/unit and/or counseling patient: Coding Level of Care Code 94741 Initial Inpt Care Lvl 3 Diagnoses Paroxysmal atrial fibrillation with rapid ventricular response I48.0 Demand ischemia I24.8 S/P placement of cardiac pacemaker Z95.0 Anticoagulant long-term use Z79.01 HTN (hypertension) I10 Hypertension type: essential hypertension (1) HTN (hypertension) Hypertension type: essential hypertension Qualified Code(s): I10 - Essential (primary) hypertension
[2022-08-29] MEDS ORDERED: dilTIAZem HCl 60 MG TAB PO STA (14:29)
[2022-08-29] MEDS ORDERED: ALBUT/IPRATROP 3MG/0.5MG NEB 3 ML VIAL NEB STA (20:04)
[2022-08-29] MEDS: LANTUS PER UNIT CHARGE SQ SCH (20:24)
--- NOTE | 2022-08-29 21:19 | Hospitalist Progress Note ---
Date of Service August 29, 2022 Assessment & Plan (1) Fever: Plan: 87 yo female with a fever Source is unknown. Urine is negative. Blood cultures negative BIOFIRE viral markers all negative including respiratory viruses. procal negative Likely viral. NO abx (2) Hypoglycemia: Plan: Change Lantus to 8 units at night. Has been getting 18 units for many years. Was hypoglycemic in the personal[facility] 3 days ago per staffI spoke with Chelsi 08/28 209 tonight (3) Elevated troponin I level: Plan: mild elevation, no chest pain. will repeat, Echo 08/28 LVEF 55 to 60%, grade 1 diastolic dysfunction, no significant valvular abnormalities. Cardiology note appreciateddemand ischemia causing troponin elevation. Discussed with . Nifedipine stopped and Cardizem initiated 60 mg a day and 120 from tomorrow. (4) Pacemaker: Plan: Patient has pacemaker. Interrogated in July. Cardiology note reviewed. Has sinus node dysfunction and intermittent atrial fibrillation (5) Hyperlipidemia: Plan: resume home meds (6) Chronic kidney disease, stage III (moderate): Plan: creatinine appears at baseline (7) Altered mental status: Plan: Discussed with etelvina Mcguirethe patient had worsened short-term memory for the last year or so. Has diagnosis of dementia, no recent mental status changes Will check B12 and TSH with morning labs 08/30 (8) HTN (hypertension): Plan: Now normotensive. Blood pressure 87 systolic when she sat up in a chair 08/28 (9) Conjunctivitis: Plan: Left eye, will order polymyxin/triethprim sulfate drops q3h/ 6 drops in 24 hours max. (10) Atrial fibrillation: Plan: Intermittent seen when plan pacemaker interrogated. Continue Eliquis 5 twice daily. Renal function normal. (11) Normochromic normocytic anemia: Plan: Stable. Plan The patient has been DNR/DNI for some time now. I have called etelvina Vargas and confirmed it. CODE STATUS changed Admission and Anticipated Discharge Date Admission Date: August 27, 2022 Physical Exam Physical Exam: Pleasant overweight elderly lady, sitting in chair, tries hard to recall answers to's many questions but mostly not able to. 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, hard of hearing Psych: Calm, insight appears limited Results & Data Results & Data ([facility]) Vital Signs (Past 12 Hours) Vital Signs Temp Pulse Resp BP Pulse Ox O2 Del Method 08/29/22 20:14 61 18 93 Room Air 08/29/22 19:41 36.9 C 61 16 126/56 L 93 Room Air 08/29/22 16:02 36.6 C 60 18 109/53 L 93 Room Air 08/29/22 12:38 36.7 C 96 H 17 155/84 H 91 Room Air 08/29/22 12:30 36.5 C 59 L 17 135/55 L 92 Room Air Laboratory Results Abnormal lab results 08/29/22 08/29/22 Range/Units 17:34 20:27 POC Glucose 221 H 209 H (70-99) mg/dl PG Care Time/CCT Total # of Minutes Spent Total Time Spent with Patient: Total time spent is greater than 50% in coordination of care (as documented) at patient's floor/unit and/or counseling patient: Coding Level of Care Code 04729 Subseq Hosp Care Lvl 3 Diagnoses Fever R50.9 Fever type: unspecified Hypoglycemia E16.2 Elevated troponin I level R77.8 Pacemaker Z95.0 Hyperlipidemia E78.2 Hyperlipidemia type: mixed hyperlipidemia Chronic kidney disease, stage III (moderate) N18.32 Chronic kidney disease stage 3 subtype: stage 3b (GFR 30-44) Altered mental status R41.0 Altered mental status type: disorientation HTN (hypertension) I10 Hypertension type: essential hypertension Conjunctivitis H10.9 Atrial fibrillation I48.91 Atrial fibrillation type: unspecified Normochromic normocytic anemia D64.9 (1) Fever Fever type: unspecified Qualified Code(s): R50.9 - Fever, unspecified (2) Hyperlipidemia Hyperlipidemia type: mixed hyperlipidemia Qualified Code(s): E78.2 - Mixed hyperlipidemia (3) Chronic kidney disease, stage III (moderate) Chronic kidney disease stage 3 subtype: stage 3b (GFR 30-44) Qualified Code(s): N18.32 - Chronic kidney disease, stage 3b (4) Altered mental status Altered mental status type: disorientation Qualified Code(s): R41.0 - Disorientation, unspecified (5) HTN (hypertension) Hypertension type: essential hypertension Qualified Code(s): I10 - Essential (primary) hypertension (6) Atrial fibrillation Atrial fibrillation type: unspecified Qualified Code(s): I48.91 - Unspecified atrial fibrillation
[2022-08-30] MEDS ORDERED: OLANZapine 5 MG TABLET PO STA (00:33)
[2022-08-30] MEDS: TRIMETHOPRIM/POLYMYXIN B OP SCH ×8 (01:20→23:12)
[2022-08-30] MEDS: ACETAMINOPHEN 325 MG TAB PO PRN (05:43)
[2022-08-30 06:34] LABS: BUN Creatinine Ratio 13.6 (10-20); Calcium 9.1 mg/dl (8.5-10.1); Creatinine Clr Calc Pharmacy 34.6 ml/min; Est GFR (African American) 55.8 ml/min; Est GFR (Non-African American) 48.2 ml/min; Potassium 3.7 mmol/L (3.5-5.1)
[2022-08-30] MEDS: FLUoxetine HCL 20 MG CAP PO SCH ×2 (08:10→19:50)
[2022-08-30] MEDS: APIXABAN 5 MG TABLET PO SCH ×2 (08:10→19:50)
[2022-08-30] MEDS: ISOSORBIDE MONO EXTENDED REL 30 MG TABCR PO SCH (08:10)
[2022-08-30] MEDS: dilTIAZem HCL 120 MG CAPCR PO SCH (08:11)
[2022-08-30] MEDS: UMECLIDINIUM BROMIDE 62.5MCG/BLISTER 7 PUFFS/INHALER INH SCH (08:11)
[2022-08-30] MEDS: PANTOprazole 40 MG TAB PO SCH (08:11)
[2022-08-30] MEDS: ASPIRIN 81 MG ECTAB PO SCH (08:11)
[2022-08-30] MEDS: METOPROLOL SUCC 50MG EXT REL TAB PO SCH (08:11)
--- NOTE | 2022-08-30 19:29 | Hospitalist Progress Note ---
Date of Service August 30, 2022 Assessment & Plan (1) Hypoglycemia: Plan: Lower dose of Lantus working well for blood sugars. Lowered from 18 to 8 units (2) Hyponatremia: Plan: new today- euvolemic. Is on a strange dose of Prozac 20 twice a day which I will change to once a day. No diuretics. Medications reviewed (3) Elevated troponin I level: Plan: mild elevation, no chest pain. will repeat, Echo 08/28 LVEF 55 to 60%, grade 1 diastolic dysfunction, no significant valvular abnormalities. Cardiology note appreciateddemand ischemia causing troponin elevation. Discussed with . Nifedipine stopped and Cardizem 120 mg daily now (4) Pacemaker: Plan: Telemetry shows today shows paced rhythm in the 60s patient has pacemaker. Interrogated in July. Cardiology note reviewed. Has sinus node dysfunction and intermittent atrial fibrillation (5) Hyperlipidemia: Plan: resume home meds (6) Chronic kidney disease, stage III (moderate): Plan: creatinine appears at baseline (7) Altered mental status: Plan: Baseline moderate cognitive impairment and lives in a personal [facility] (8) HTN (hypertension): Plan: Now normotensive. Blood pressure 87 systolic when she sat up in a chair 08/28 (9) Conjunctivitis: Plan: Left eye, will order polymyxin/triethprim sulfate drops q3h/ 6 drops in 24 hours max. (10) Atrial fibrillation: Plan: Intermittent seen when plan pacemaker interrogated. Continue Eliquis 5 twice daily. Renal function normal. (11) Normochromic normocytic anemia: Plan: Stable. Plan Ready for discharge to [facility]. [facility] personnel coming to evaluate her in the morning. Discussed with daughter and nursing. Admission and Anticipated Discharge Date Admission Date: August 27, 2022 Subjective at 1440 h, no complaints. No shortness of breath. Eating well. Physical Exam Physical Exam: Pleasant overweight elderly lady, sitting in chair, tries hard to recall answers to's many questions but mostly not able to. Unable to tell me why she is here. There is baseline unable to tell me where she is either. 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, hard of hearing Psych: Calm, insight limited Results & Data Results & Data ([facility]) Vital Signs (Past 12 Hours) Vital Signs Temp Pulse Resp BP Pulse Ox O2 Del Method 08/30/22 15:40 36.7 C 61 17 117/66 94 Room Air 08/30/22 12:14 36.9 C 69 18 116/64 92 Room Air 08/30/22 08:26 37.7 C H 74 19 151/73 H 93 Room Air Laboratory Results Abnormal lab results 08/29/22 08/30/22 08/30/22 Range/Units 20:27 05:49 07:56 Sodium 131 L (136-145) mmol/L Chloride 97 L (98-107) mmol/L Glucose 102 H (70-99(Fasting)) mg/dl POC Glucose 209 H 110 H (70-99) mg/dl 08/30/22 08/30/22 Range/Units 11:53 16:49 Sodium (136-145) mmol/L Chloride (98-107) mmol/L Glucose (70-99(Fasting)) mg/dl POC Glucose 114 H 168 H (70-99) mg/dl PG Care Time/CCT Total # of Minutes Spent Total Time Spent with Patient: Total time spent is greater than 50% in coordination of care (as documented) at patient's floor/unit and/or counseling patient: Coding Level of Care Code 13062 Subseq Hosp Care Lvl 3 Diagnoses Hypoglycemia E16.2 Hyponatremia E87.1 Elevated troponin I level R77.8 Pacemaker Z95.0 Hyperlipidemia E78.2 Hyperlipidemia type: mixed hyperlipidemia Chronic kidney disease, stage III (moderate) N18.32 Chronic kidney disease stage 3 subtype: stage 3b (GFR 30-44) Altered mental status R41.0 Altered mental status type: disorientation HTN (hypertension) I10 Hypertension type: essential hypertension Conjunctivitis H10.9 Atrial fibrillation I48.91 Atrial fibrillation type: unspecified Normochromic normocytic anemia D64.9 (1) Hyperlipidemia Hyperlipidemia type: mixed hyperlipidemia Qualified Code(s): E78.2 - Mixed hyperlipidemia (2) Chronic kidney disease, stage III (moderate) Chronic kidney disease stage 3 subtype: stage 3b (GFR 30-44) Qualified Code(s): N18.32 - Chronic kidney disease, stage 3b (3) Altered mental status Altered mental status type: disorientation Qualified Code(s): R41.0 - Disorientation, unspecified (4) HTN (hypertension) Hypertension type: essential hypertension Qualified Code(s): I10 - Essential (primary) hypertension (5) Atrial fibrillation Atrial fibrillation type: unspecified Qualified Code(s): I48.91 - Unspecified atrial fibrillation
[2022-08-30] MEDS: LANTUS PER UNIT CHARGE SQ SCH (19:57)
[2022-08-31] MEDS: TRIMETHOPRIM/POLYMYXIN B OP SCH ×5 (02:13→13:01)
[2022-08-31] MEDS: FLUoxetine HCL 20 MG CAP PO SCH (08:19)
[2022-08-31] MEDS: ASPIRIN 81 MG ECTAB PO SCH (08:19)
[2022-08-31] MEDS: APIXABAN 5 MG TABLET PO SCH (08:19)
[2022-08-31] MEDS: UMECLIDINIUM BROMIDE 62.5MCG/BLISTER 7 PUFFS/INHALER INH SCH (08:20)
[2022-08-31] MEDS: METOPROLOL SUCC 50MG EXT REL TAB PO SCH (08:20)
[2022-08-31] MEDS: PANTOprazole 40 MG TAB PO SCH (08:20)
[2022-08-31] MEDS: ISOSORBIDE MONO EXTENDED REL 30 MG TABCR PO SCH (08:20)
[2022-08-31] MEDS: dilTIAZem HCL 120 MG CAPCR PO SCH (08:20)
--- NOTE | 2022-08-31 12:22 | Discharge Summary ---
Date of Service August 31, 2022 Admission HPI Per Admitting Provider 87 yo female with PMH of CHF, has come into the hospital from [facility]. Patient has been having SOB and a worsening cough over the past 2 weeks which has gradually worsened. There appears to be sputum production but patient is not able to decribe it. Patient is a poor historian, however her daughter who is a nurse is at bedside. Over the past 48 hours, she has been having fevers which have been difficult to control at the Personal retirement It appears over the past year her memory has worsened, where it is difficult for the patient to remember words. However over the past 2 days, her word finding has worsened even more. Her daughter also reports normally, the patient can live on her own at the personal residential. Principal Diagnosis Fever and hypoglycemia Discharge Data Allergies Allergy/AdvReac Type Severity Reaction Status Date / Time No Known Allergies Allergy Verified 07/25/22 15:14 Consultations 08/27/22 13:04 ED Decision to Admit Stat 08/29/22 09:29 Consult Cardiology Stat Hospital Course (1) Hypoglycemia: In speaking with the personal-residential it appears the patient was hypoglycemic the day before at around 49. Her p.o. intake has gone down with her worsening cognitive impairment for the last year or so. Lantus dose had remained the same at 18 units. This was reduced to 8 units and the patient was well controlled - BS 151, 168,114 last 24 hours (2) Hyponatremia: The patient developed hyponatremia the day before discharge. this p.m. was 131. I noticed she is on a low-sodium diet. With her dementia and already poor intake this has been discontinued. Repeat BMP is planned within a week (3) Elevated troponin I level: Demand ischemia from atrial fibrillation (4) Pacemaker: Was in a paced rhythm and a pacemaker interrogation done recently revealed some underlying occasional atrial fibrillation (5) Hyperlipidemia: Zocor stopped. The patient was started on Cardizem here which raises Zocor levels and with her advanced age I do not think a statin is necessary. (6) Chronic kidney disease, stage III (moderate): Stable. (7) Altered mental status: Has dementia. The patient was calm throughout the hospital stay and very pleasant. B12 level was normal at 527. TSH normal 0.98 Will leave decision to start medication such as donepezil to PCP. Is on Prozac 20 mg twice a day at home and has been quite cheerful and pleasant here. (8) HTN (hypertension): (9) Conjunctivitis: (10) Atrial fibrillation: Paced rhythm here. Cardizem added by cardiology and metoprolol continued. (11) Normochromic normocytic anemia: (12) Viral infection, unspecified: She had come in with a fever which seemed viral in origin. No antibiotics. Had no fever from hospital day 2 onwards. Negative blood cultures and normal urinalysis. Normal bio fire panel. Plan Evaluated by a person from a personal residential today and is ready for discharge. She is at her baseline functional status. Total Time Total Time Spent Total Time Spent (In Minutes): 45 Discharge Plan Discharge Items Patient Disposition: Personal Retirement Reason For Visit: FEVER Discharge Diagnosis: hypoglycemia moderate cognitive impairment atril fibrillation, paced rhythm Activity: Resume your previous activity Non-emergency contact: Primary Care Provider Call non-emergency contact if: you have any medication questions and your symptoms worsen Follow-up/Referrals: [facility] [Primary Care Provider] - Diet: Regular Addtl Attending Provider Instructions: see PCP in one week- to check your BMP and magnesium. You insulin is reduced as you had episode of low suar at home as well as here in hospital- take 8 units daily of Lantus. NO DIET RESTRICTION Please eat potassium rich foods- an orange and banana daily OR orange and nuts . Your potassium was stopped. Pending Studies at Discharge: No Stand-Alone Forms: My [facility] Skilled Items Patient informed of condition?: Yes Discharge Level of Care: Other Communicable Disease: No Discharge Prognosis: Stable Lines: None Urinary Catheter: No Medications and DC Order Prescriptions: New diltiazem HCl [Cardizem CD] 120 mg Capsule,Extended Release 24hr 120 mg PO QAM Qty: 30 1RF Continued Incruse Ellipta 62.5 mcg/actuation blister with device 1 inh inhalation QAM isosorbide mononitrate 30 mg tablet extended release 24 hr 30 mg PO DAILY famotidine [Pepcid] 20 mg tablet 20 mg PO DAILY PRN (Reason: gastric reflux) multivitamin Tablet 1 tab PO QAM metoprolol succinate 100 mg tablet extended release 24 hr 100 mg PO QAM aspirin 81 mg Tablet,Delayed Release (Dr/Ec) 81 mg PO QAM fluoxetine 20 mg capsule 20 mg PO BID calcium carbonate-vitamin D3 [Oyster Shell Calcium-Vit D3] 500 mg(1,250mg) - 200 unit Tablet 1 tab PO QAM omega 6-gox-kjs-fish oil [Fish Oil] 1,000 mg (120 mg-180 mg) Capsule 1 cap PO BID losartan 100 mg tablet 100 mg PO DAILY acetaminophen [Tylenol Extra Strength] 500 mg Tablet 500 - 1,000 mg PO DAILY MDD 3 GRAMS/24 HOURS PRN (Reason: Pain) Eliquis 5 mg tablet 5 mg PO BID fluticasone propion-salmeterol [Wixela Inhub] 250-50 mcg/dose Blister With Device 1 inh INHALATION BID menthol-zinc oxide [Calmoseptine] 0.44-20.6 % Ointment 1 applic TOPICAL DIRECTED PRN (Reason: SKIN BREAKDOWN) Metamucil 3.4 gram/5.4 gram Powder 1 tbsp PO DAILY Rx Instructions: MIX WITH 8 OZ. FLUID omeprazole 40 mg capsule,delayed release(DR/EC) 40 mg PO QAM Changed insulin glargine [Lantus Solostar U-100 Insulin] 100 unit/mL (3 mL) insulin pen 8 unit SC HS Qty: 15 0RF Discontinued potassium chloride 10 mEq tablet extended release 10 meq PO DAILY nifedipine 60 mg tablet extended release 24hr 60 mg PO QAM simvastatin 20 mg tablet 20 mg PO HS PreserVision AREDS-2 [id number] ft-ympi-vq-mg Capsule 1 tab PO BID nystatin-triamcinolone 100,000-0.1 unit/g-% cream 1 applic TOPICAL UD PRN (Reason: fungal rash) ipratropium-albuterol 0.5 mg-3 mg(2.5 mg base)/3 mL solution for nebulization 3 ml NEB QID PRN (Reason: Shortness Of Breath Or Wheezing) amoxicillin 500 mg Capsule 2,000 mg PO DIRECTED PRN (Reason: 1 HOUR PRIOR TO DENTAL APPT.) Coricidin HBP Chest Easton-Cough 10-200 mg Capsule 1 tab-cap PO DIRECTED PRN (Reason: Cough) acetaminophen [Tylenol Extra Strength] 500 mg Tablet 500 mg PO BID MDD 3 GRAM/24 HOURS docusate sodium 100 mg Capsule 100 mg PO DAILY PRN (Reason: Constipation) Discharge Orders: Discharge Order (Routine); Ordered 08/31/22 Ordered By: Felix Sepulveda Admission Data Admit Date/Time: 08/27/22 12:58 Attending Provider: Felix Sepulveda Admit Provider: Tacos Vila Primary Care Provider: Eliceo Nelson,[facility], [facility] Other Providers: Tacos Vila ; Efraín Wilkins Other Interventions: Discharge Summary Assessment (RN) Last Done: 08/31/22 12:36 Coding Level of Care Code D/C DAY MANAGEMENT >30 MINS Diagnoses Hypoglycemia E16.2 Hyponatremia E87.1 Elevated troponin I level R77.8 Pacemaker Z95.0 Hyperlipidemia E78.2 Hyperlipidemia type: mixed hyperlipidemia Chronic kidney disease, stage III (moderate) N18.32 Chronic kidney disease stage 3 subtype: stage 3b (GFR 30-44) Altered mental status R41.0 Altered mental status type: disorientation HTN (hypertension) I10 Hypertension type: essential hypertension Conjunctivitis H10.9 Atrial fibrillation I48.91 Atrial fibrillation type: unspecified Normochromic normocytic anemia D64.9 Viral infection, unspecified B34.9
--- NOTE | 2022-09-09 08:47 | Coding Query ---
CODING QUERY To promote full compliance with coding requirements relating to patient care, provider participation is requested in all cases of medical record coder uncertainty. Please assist us with the question(s) below: Coding Question(s): The H&P documents, under Fever, " 87 yo female with a fever Source is unknown. Urine is negative. BIOFIRE will be ordered; Inflammatory markers were elevated, procal negative Likely viral. Given cough, perhaps bronchitis, atelectasis. will continue ceftriaxone, ordered incentive spirometer and flutter valve", and, under the History of Present Illness, "Patient has been having SOB and a worsening cough over the past 2 weeks which has gradually worsened. There appears to be sputum production but patient is not able to decribe it.", and the 08/28 Progress Note documents, "87 yo female with a fever Source is unknown. Urine is negative. Blood cultures negative so far. BIOFIRE viral markers all negative including respiratory viruses. procal negative Likely viral. Stop ceftriaxone", and under the Subjective, "Review of systems states she has not had chest pain or shortness of breath but has been coughing since yesterday", and, "There has been greenish sputum when she coughs", and the Discharge Summary documents, "Viral infection, unspecified: She had come in with a fever which seemed viral in origin.". It is not clear if the unspecified viral infection was still felt to be likely bronchitis or if bronchitis was ruled out. Please specify below, in your clinical opinion: ( ) Viral Infection, Unspecified is likely viral bronchitis of unspecified virus ( x ) Viral Infection, Unspecified is NOT bronchitis and bronchitis is ruled-out ( ) Other: Please Specify Physician's Response(s): Thank you Ekaterina Mercedes Principal Diagnosis: "that condition established after study, to be chiefly responsible for occasioning the admission of the patient to the hospital for care." Co-Existing Principal Diagnosis: "when two or more diagnoses equally meet the criteria for principal diagnosis as determined by the circumstances of admission, diagnostic work up, and/or therapy provided, and the Alphabetic Index, Tabular List, or another coding guideline does not provide sequencing direction, any one of the diagnoses may be sequenced first." "When the physician has documented what appears to be a current diagnosis in the body of the record, but has not included the diagnosis in the final diagnostic statement, the physician should be asked whether the diagnosis should be added." (Source Coding [facility] 2 QTR90. p3-4) LIZ
--- NOTE | 2022-09-09 08:51 | Coding Query ---
To promote full compliance with coding requirements relating to patient care, provider participation is requested in all cases of him manager uncertainty. Please assist us with the question(s) below: Coding Question(s): The diagnosis below was documented in the ER and there was documentation of IV Lasix given, then subsequently fell off all further documentation. Please indicate if it is still a possible diagnosis or ruled out. Physician's Response(s): PULMONARY EDEMA ( ) Diagnosed. Please specify further, in your clinical opinion, the Pulmonary Edema" ( ) Likely Acute Pulmonary Edema ( ) Likely Chronic or Unspecified Pulmonary Edema ( ) Other Pulmonary Edema: Please Specify ( x) Ruled out ( ) Other (please specify) MTDD
== END 2022-08-31 17:02 | disposition home or self-care (01) | DRG 866 ==
LOC: ED 08:08 → 4W 12:58 → SUATTDRO 12:58 → 4W 14:34

== ENCOUNTER 2022-10-27 17:23 | Inpatient (IN) ==
[2022-10-27] MEDS ORDERED: SODIUM CHLORIDE 0.9% 500 ML IV ONE (18:02)
[2022-10-27] MEDS ORDERED: ALBUT/IPRATROP 3MG/0.5MG NEB 3 ML VIAL NEB STA (18:04)
[2022-10-27] MEDS ORDERED: dexAMETHasone**PF** 10 MG/ML VIAL IV ONE (18:04)
--- NOTE | 2022-10-27 18:12 | Emergency Department Note ---
Impression & Plan Acute respiratory failure with hypoxia, Pneumonia, COPD exacerbation, Leukocytosis ED Provider Note NAME: GLENNA KELLEY AGE: 87 SEX: F ARRIVES VIA: Ambulance INFORMANT: Patient ED PROVIDER(S): Myron Monahan MD CHIEF COMPLAINT: Fever, cough, sob PLAN: Disposition: Admit MEDICAL DECISION MAKING: The patient is a pleasant 87-year-old woman with a past medical history of dementia, history of paroxysmal atrial fibrillation on Eliquis, s/p PPM, CKD, COPD, hypertension who presents to the emergency department via EMS from her personal custodial at [facility] for low-grade fever with cough and congestion over the past several days noted to be hypoxic in the upper 80s on her 2L [place] home oxygen. The patient's son did arrive at bedside and reports that she is confused at baseline but typically her dementia gets worse when she is sick. Patient is a poor historian but denies abdominal pain, nausea, vomiting or diarrhea. On arrival the patient is pleasantly confused no acute distress, afebrile with blood pressure 170s/100s and vital signs otherwise stable. She appears clinically dry. She has wheezes and rhonchi bilateral lower lung finney. Mildly dyspneic without significant increased work of breathing. EKG without overt acute ischemia. CXR without overt acute cardiopulmonary process however lung bases better characterized on CT of the abdomen pelvis which demonstrates multifocal opacities suggestive of pneumonia. WBC 17.4K with neutrophil predominance and left shift. Platelets within normal limits. H/H similar to prior. Chemistry without metabolic acidosis. Lactic acid 0.8, within normal limits. Electrolytes LFTs unremarkable. High- sensitivity troponin 26.1, nonspecific. Lipase is not elevated. Procalcitonin is not significantly elevated. UA with WBCs albeit with epithelial cells and no bacteria. COVID-19, influenza and RSV PCR was negative. CT of the abdomen pelvis was performed and per above better characterizes bibasilar multifocal pneumonia. No acute intra-abdominal processes noted. Empiric treatment for pneumonia ordered with cefepime and vancomycin. The patient has been ordered for 30 cc/kg of IV fluid hydration with normal saline. She remained hemodynamically stable. Case was discussed with Dr. Desai, [facility] hospitalist, who will evaluate the patient for admission. Triage Nursing notes reviewed and agree them. Prior medical records reviewed Vital Signs: reviewed Differential diagnosis: Reactive airway disease, pneumonia, pneumothorax, COPD, CHF, infections, cardiac ischemia, pulmonary embolism, musculoskeletal, gastrointestinal, as well as other pathologies. ER treatment provided: See below. Diagnostics interpreted by me: ECG: Atrial paced rhythm, 67 bpm, no ectopy, no overt acute ischemia Cardiac Monitoring: An order for continuous cardiac monitoring was placed and demonstrated Atrial paced rhythm, 67 bpm, no ectopy. Laboratory studies: See below Imaging studies: See below Consultation(s): Dr. Desai, [facility] hospitalist HPI: The patient is a pleasant 87-year-old woman with a past medical history of dementia, history of paroxysmal atrial fibrillation on Eliquis, s/p PPM, CKD, COPD, hypertension who presents to the emergency department via EMS from her personal custodial at [facility] for low-grade fever with cough and congestion over the past several days noted to be hypoxic in the upper 80s on her 2L [place] home oxygen. The patient's son did arrive at bedside and reports that she is confused at baseline but typically her dementia gets worse when she is sick. Patient is a poor historian but denies abdominal pain, nausea, vomiting or diarrhea. ROS: See above HPI for pertinent positives & negatives. A total of 10 systems reviewed and were otherwise negative. VITALS:See Below PHYSICAL EXAMINATION: GENERAL: Awake, alert, fatigued-appearing, in no distress HENT: Normocephalic, atraumatic. Oropharynx with dry mucous membranes and otherwise unremarkable. EYES: Normal conjunctiva. Sclera non-icteric. NECK: Supple. No nuchal rigidity. FROM. No JVD. RESPIRATORY: Wheezing rhonchi bilateral lower lung finney. Mildly dyspneic without significant increased work of breathing. CARDIAC: Regular rate, normal rhythm. Extremities warm and well perfused. Pulses equal. ABDOMEN: Soft, non-distended. No tenderness to palpation. No rebound or guarding. No masses. RECTAL: Deferred. MUSCULOSKELETAL: Chest examination reveals no tenderness. The back is symmetrical on inspection without obvious abnormality. There is no CVA tenderness to palpation. No joint edema. LOWER EXTREMITIES: Calves are equal size bilaterally and non-tender. No edema. No discoloration. NEURO: Normal sensorium. No sensory or motor deficits noted. SKIN: No rash or jaundice noted. Myron Monahan MD Past Med/Surg History Medical History Asthma Dependence on supplemental oxygen Essential (primary) hypertension Former smoker Frozen shoulder Hyperlipidemia Pacemaker PAT (paroxysmal atrial tachycardia) Sinus node dysfunction Symptomatic bradycardia Syncope Surgical History H/O bilateral cataract extraction History of left hip replacement History of right hip replacement History of total abdominal hysterectomy and bilateral salpingo-oophorectomy Family History Father Cancer laryngeal (smoker) Mother Ovarian cancer Social History Smoking Status: Never smoker Tobacco Type: Cigarettes Cigarettes Per Day: <1/2 ppd x 40 years; Second Hand Exposure: No; Hx Alcohol Use: No Hx Substance Use: No Preferred Language: Peruvian Communication Ability: Effective Hybrid 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 Required: No Beliefs That Will Affect Care: None marital status: / Current Living Situation: Personal Care Facility Current Living Situation Comment: [facility] current occupational status: 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) other: 2 daughters, 1 son Feels Safe at Home: Yes Assistive Devices: Walker Allergies Allergies Allergy/AdvReac Type Severity Reaction Status Date / Time No Known Allergies Allergy Verified 10/27/22 19:19 Home Meds Home Medications Medication Instructions Recorded Confirmed aspirin 81 mg tablet,delayed 81 mg PO QAM 02/02/19 10/27/22 release calcium carbonate 500 mg-vitamin 1 tab PO QAM 02/02/19 10/27/22 D3 5 mcg (200 unit) tablet (Oyster Shell Calcium-Vitamin D3) fluoxetine 20 mg capsule 20 mg PO BID 02/02/19 10/27/22 metoprolol succinate 100 mg 100 mg PO QAM 02/02/19 10/27/22 tablet,extended release 24 hr multivitamin 1 tab PO QAM 02/02/19 10/27/22 omega 9-lbw-egi-fish oil 1,000 mg 1 cap PO BID 02/02/19 10/27/22 (120 mg-180 mg) capsule (Fish Oil) losartan 100 mg tablet 100 mg PO DAILY 03/11/19 10/27/22 acetaminophen 500 mg tablet 500 - 1,000 mg PO DAILY PRN Pain 07/26/19 10/27/22 (Tylenol Extra Strength) apixaban 5 mg tablet (Eliquis) 5 mg PO BID 06/25/20 10/27/22 famotidine 20 mg tablet (Pepcid) 20 mg PO DAILY PRN gastric reflux 06/30/20 10/27/22 umeclidinium 62.5 mcg/actuation 1 inh inhalation QAM 01/05/21 10/27/22 blister powder for inhalation (Incruse Ellipta) fluticasone 250 mcg-salmeterol 50 1 inh inhalation BID 02/15/21 10/27/22 mcg/dose blistr powdr for inhalation (Wixela Inhub) menthol 0.44 %-zinc oxide 20.6 % 1 applic topical DIRECTED PRN 02/15/21 10/27/22 topical ointment (Calmoseptine) SKIN BREAKDOWN omeprazole 40 mg capsule,delayed 40 mg PO QAM 02/15/21 10/27/22 release psyllium husk 3.4 gram/5.4 gram 1 tbsp PO DAILY 02/15/21 10/27/22 oral powder (Metamucil) isosorbide mononitrate 30 mg 30 mg PO DAILY 07/25/22 10/27/22 tablet,extended release 24 hr amoxicillin 500 mg capsule 2,000 mg PO DIRECTED PRN 1 HR 10/27/22 10/27/22 PRIOR TO DENTAL APPT. chlorpheniramine-acetaminophen 2 1 tab PO DIRECTED PRN COLD/FLU 10/27/22 10/27/22 mg-325 mg tablet (Coricidin HBP SYMPTOMS Cold and Flu) cranberry concentrate-ascorbic 1 cap PO BID 10/27/22 10/27/22 acid 140 mg-100 mg capsule (Cranberry Plus Vitamin C) diltiazem HCl 180 mg 180 mg PO DAILY 10/27/22 10/27/22 capsule,extended release 24 hr docusate sodium 100 mg capsule 100 mg PO DAILY 10/27/22 10/27/22 docusate sodium 100 mg capsule 100 mg PO DAILY PRN Constipation 10/27/22 10/27/22 insulin glargine 100 unit/mL (3 10 unit SC HS 10/27/22 10/27/22 mL) subcutaneous pen (Lantus Solostar U-100 Insulin) ipratropium 0.5 mg-albuterol 3 mg 3 ml inhalation QID PRN Shortness 10/27/22 10/27/22 (2.5 mg base)/3 mL nebulization Of Breath Or Wheezing soln nystatin-triamcinolone 100,000 1 applic topical BID PRN FUNGAL 10/27/22 10/27/22 unit/g-0.1 % topical cream RASH phenylephrine-shark liver 1 applic MT DIRECTED PRN 10/27/22 10/27/22 oil-mineral oil-petrolatum rectal Hemorrhoids ointment (Hemorrhoid ointment) Results & Data (ED) Vital Signs Vital Signs - 24 hr 10/27/22 17:51 10/27/22 17:51 10/27/22 18:17 Temperature 37.4 C 37.4 C Temperature Source Oral Oral Pulse Rate 67 Pulse Rate [Apical] Respiratory Rate 18 18 Blood Pressure 175/110 H Blood Pressure [Left Arm] 175/110 H Blood Pressure Mean 131 Blood Pressure Mean [Left Arm] 131 Pulse Oximetry 95 96 89 L Oxygen Delivery Method Nasal Cannula Nasal Cannula Room Air Oxygen Flow Rate 2 2 Sepsis Recent Fever Within 48 Hours Yes Sepsis New/Unexplained Change in Mental Status Yes Sepsis Action Taken by Nursing No Action Required 10/27/22 18:51 Temperature Temperature Source Pulse Rate Pulse Rate [Apical] 78 Respiratory Rate 18 Blood Pressure Blood Pressure [Left Arm] 157/63 H Blood Pressure Mean Blood Pressure Mean [Left Arm] 94 Pulse Oximetry 93 Oxygen Delivery Method Room Air Oxygen Flow Rate Sepsis Recent Fever Within 48 Hours Sepsis New/Unexplained Change in Mental Status Sepsis Action Taken by Nursing Laboratory Data Attestation: I reviewed the patient's lab results. 10/27/22 17:54 10/27/22 17:54 Lab Results 10/27/22 10/27/22 10/27/22 Range/Units 17:54 17:54 17:54 WBC 17.41 H (4.8-10.8) K/ul RBC 3.85 L (3.93-5.22) M/uL Hgb 11.7 L (12.0-16.0) g/dl Hct 34.3 (34.1-44.9) % MCV 89.1 (80.0-100.0) fL MCH 30.4 (25.0-34.0) pg MCHC 34.1 (32.0-36.0) g/dL RDW Std Deviation 45.8 (36.4-46.3) fL RDW Coeff of [place] 14.1 (11.5-14.5) % Plt Count 261 (130-400) K/uL MPV 9.2 L (9.4-12.3) fL Immature Gran % (Auto) 0.6 % Neut % (Auto) 83.9 % Lymph % (Auto) 7.9 % [place] % (Auto) 6.8 % Eos % (Auto) 0.5 % Baso % (Auto) 0.3 % Neut # (Auto) 14.59 H (1.4-6.5) K/uL Lymph # (Auto) 1.38 (1.2-3.4) K/uL [place] # (Auto) 1.19 H (0.24-0.82) K/uL Eos # (Auto) 0.08 (0-0.50) K/uL Baso # (Auto) 0.06 (0-0.2) K/uL Immature Gran # (Auto) 0.11 H (0.00-0.02) K/uL Sodium 132 L (136-145) mmol/L Potassium 3.9 (3.5-5.1) mmol/L Chloride 97 L (98-107) mmol/L Carbon Dioxide 27 (21-32) mmol/L Anion Gap 8 (3-11) BUN 14 (6-23) mg/dl Creatinine 1.00 (0.6-1.2) mg/dl Est Cr Clr Drug Dosing 34.1 ml/min Est GFR ( Amer) 57.8 ml/min Est GFR (Non-Af Amer) 49.9 ml/min BUN/Creatinine Ratio 14.0 (10-20) Glucose 126 H (70-99(Fasting)) mg/dl Calcium 9.1 (8.5-10.1) mg/dl Phosphorus 2.7 (2.5-4.9) mg/dl Magnesium 1.9 (1.7-2.4) mg/dl Total Bilirubin 0.6 (0.2-1.0) mg/dl AST 17 (13-39) U/L ALT 12 (7-52) U/L Alkaline Phosphatase 94 (34-104) U/L Troponin I High Sens 26.1 H (0-14) pg/ml Total Protein 7.2 (6.0-8.3) gm/dl Albumin 3.9 (3.4-5.0) gm/dl Globulin 3.3 (2.5-4.0) gm/dl Albumin/Globulin Ratio 1.2 (0.9-2) Lipase 10 L (11-82) U/L Procalcitonin 0.21 (0-0.5) ng/ml Urine Color Urine Appearance (Clear) Urine pH (4.5-7.5) Ur Specific [place] (1.000-1.030) Urine Protein (Negative) Urine Glucose (UA) (Negative) Urine Ketones (Negative) Urine Blood (Negative) Urine Nitrite (Negative) Urine Bilirubin (Negative) Urine Urobilinogen (Negative) Ur Leukocyte Esterase (Negative) Urine WBC (Auto) (0-5) /hpf Urine RBC (Auto) (0-4) /hpf U Hyaline Cast (Auto) (0-5) /lpf U Epithel Cells (Auto) (0-5) /lpf Urine Bacteria (Auto) (Negative) SARS-CoV-2 (PCR) (Negative) Influenza Type A (PCR) (Neg) Influenza Type B (PCR) (Neg) RSV (RT-PCR) (Neg) 10/27/22 10/27/22 Range/Units 18:11 18:11 WBC (4.8-10.8) K/ul RBC (3.93-5.22) M/uL Hgb (12.0-16.0) g/dl Hct (34.1-44.9) % MCV (80.0-100.0) fL MCH (25.0-34.0) pg MCHC (32.0-36.0) g/dL RDW Std Deviation (36.4-46.3) fL RDW Coeff of [place] (11.5-14.5) % Plt Count (130-400) K/uL MPV (9.4-12.3) fL Immature Gran % (Auto) % Neut % (Auto) % Lymph % (Auto) % [place] % (Auto) % Eos % (Auto) % Baso % (Auto) % Neut # (Auto) (1.4-6.5) K/uL Lymph # (Auto) (1.2-3.4) K/uL [place] # (Auto) (0.24-0.82) K/uL Eos # (Auto) (0-0.50) K/uL Baso # (Auto) (0-0.2) K/uL Immature Gran # (Auto) (0.00-0.02) K/uL Sodium (136-145) mmol/L Potassium (3.5-5.1) mmol/L Chloride (98-107) mmol/L Carbon Dioxide (21-32) mmol/L Anion Gap (3-11) BUN (6-23) mg/dl Creatinine (0.6-1.2) mg/dl Est Cr Clr Drug Dosing ml/min Est GFR ( Amer) ml/min Est GFR (Non-Af Amer) ml/min BUN/Creatinine Ratio (10-20) Glucose (70-99(Fasting)) mg/dl Calcium (8.5-10.1) mg/dl Phosphorus (2.5-4.9) mg/dl Magnesium (1.7-2.4) mg/dl Total Bilirubin (0.2-1.0) mg/dl AST (13-39) U/L ALT (7-52) U/L Alkaline Phosphatase (34-104) U/L Troponin I High Sens (0-14) pg/ml Total Protein (6.0-8.3) gm/dl Albumin (3.4-5.0) gm/dl Globulin (2.5-4.0) gm/dl Albumin/Globulin Ratio (0.9-2) Lipase (11-82) U/L Procalcitonin (0-0.5) ng/ml Urine Color Yellow Urine Appearance Clear (Clear) Urine pH 7.0 (4.5-7.5) Ur Specific [place] 1.014 (1.000-1.030) Urine Protein 1+ H (Negative) Urine Glucose (UA) Negative (Negative) Urine Ketones Negative (Negative) Urine Blood Negative (Negative) Urine Nitrite Negative (Negative) Urine Bilirubin Negative (Negative) Urine Urobilinogen Negative (Negative) Ur Leukocyte Esterase Trace H (Negative) Urine WBC (Auto) 10-30 H (0-5) /hpf Urine RBC (Auto) 0-4 (0-4) /hpf U Hyaline Cast (Auto) 0 (0-5) /lpf U Epithel Cells (Auto) 20-30 H (0-5) /lpf Urine Bacteria (Auto) Negative (Negative) SARS-CoV-2 (PCR) NEGATIVE (Negative) Influenza Type A (PCR) Negative (Neg) Influenza Type B (PCR) Negative (Neg) RSV (RT-PCR) Negative (Neg) Administered Medications Discontinued Medications Albuterol (Albut/Ipratrop 3mg/0.5mg Neb 3 Ml Vial) 3 ml NEB NOW STA; Protocol Stop: 10/27/22 18:05 Last Admin: 10/27/22 18:27 Dose: 3 ml Documented By: CHANNING Dexamethasone Sodium Phosphate (DexamethasonePf 10 Mg/Ml Vial) 10 mg IV NOW ONE Stop: 10/27/22 18:05 Last Admin: 10/27/22 18:27 Dose: 10 mg Documented By: CHANNING Sodium Chloride (Nss) 500 mls @ 999 mls/hr IV .Q31M ONE Stop: 10/27/22 18:32 Last Infusion: 10/27/22 19:00 Dose: 0 mls/hr Documented By: Admin: 10/27/22 18:27 Dose: 999 mls/hr Documented By: CHANNING Cefepime HCl (Maxipime) 2,000 mg in 20 mls @ 5 mls/min IV NOW STA; Protocol Stop: 10/27/22 19:25 Last Admin: 10/27/22 20:42 Dose: 5 mls/min Documented By: CHANNING Vancomycin HCl 1,500 mg/ (Sodium Chloride) 530 mls @ 200 mls/hr IV NOW ONE Stop: 10/27/22 22:00 Last Admin: 10/27/22 20:42 Dose: 200 mls/hr Documented By: CHANNING Sodium Chloride (Nss 1000ml) 1,000 mls @ 999 mls/hr IV .Q1H1M ONE Stop: 10/27/22 20:25 Last Admin: 10/27/22 20:42 Dose: 999 mls/hr Documented By: CHANNING Ioversol (Optiray 350 100ml) 80 ml IV ONCE ONE Stop: 10/27/22 19:45 Last Admin: 10/27/22 19:45 Dose: 80 ml Documented By: WALLY Imaging Data Radiologist's Impression: Chest X-Ray 10/27/22 18:02 XR chest 1V portable HISTORY: 87 years-old Female Chest pain, nonspecific acute chest pain COMPARISON: Chest radiograph 09/18/2022 TECHNIQUE: AP view the chest FINDINGS: Cardiac silhouette is enlarged. Left subclavian pacer. Atherosclerosis of the aorta. No pneumothorax, pleural effusion or overt pulmonary edema. Degenerative changes of the shoulders. Healed chronic left-sided rib fractures. The questioned 9 mm nodular density of the left lung is not definitively seen on today's study. IMPRESSION: No acute process. ACT 112: Negative or not required by law. The above report was generated using voice recognition software. It may contain grammatical, syntax or spelling errors. Electronically signed by: Adrian Story M.D. 10/27/2022 6:54 PM Abdomen/Pelvis CT 10/27/22 19:[address] WITH IV CONTRAST CT DOSE: 365.35 mGy.cm HISTORY: Acute sepsis with urinary tract infection sepsis, leukocytosis, uti TECHNIQUE: Multiaxial CT images of the abdomen and pelvis were performed following the IV administration of 80 cc of Optiray, A dose lowering technique was utilized adhering to the principles of ALARA. COMPARISON STUDY: CT abdomen and pelvis 02/15/2021 FINDINGS: Cardiomegaly with partially imaged pacer leads and coronary artery calcifications. Patchy bibasilar groundglass and consolidative opacities lung bases. Study is degraded by respiratory motion artifact. No pneumatosis or pneumoperitoneum. Calcified granulomata of the liver and spleen. Moderately atrophic pancreas. Hypertrophied adrenal glands. Cholelithiasis without CT evidence of acute cholecystitis. Unremarkable liver. Patency of the hepatic and portal veins. Unremarkable kidneys. No hydronephrosis. Streak artifact from hip arthroplasties limits evaluation of the pelvic structures. Partial distention of the urinary bladder with mild wall thickening. Atherosclerosis of the aorta with infrarenal ectasia measuring up to 2.6 cm. No lymphadenopathy. Small hiatal hernia. Moderate fecal retention of the rectum. No bowel obstruction or bowel wall thickening. Mild colonic diverticulosis. Normal appendix. No ascites or mesenteric inflammation. Degenerative changes of the spine and pelvis. No acute fracture identified. Chronic 25% L1 compression deformity. IMPRESSION: 1. No acute intra-abdominal or intrapelvic abnormality. 2. No bowel obstruction or bowel wall thickening. 3. Cholelithiasis. 4. Mild patchy bibasilar opacities are suggestive of multifocal pneumonia. 5. Additional findings as above. ACT 112: Negative or not required by law. The above report was generated using voice recognition software. It may contain grammatical, syntax or spelling errors. Electronically signed by: Adrian Story M.D. 10/27/2022 8:17 PM Discharge Plan Visit Data Chief Complaint: Fever Stated Complaint: Illness, fever, AMS w/hx dementia ED Provider: Myron Monahan Discharge Problem: Acute respiratory failure with hypoxia, Pneumonia, COPD exacerbation, Leukocytosis Patient Disposition: Admitted As Inpatient Discharge Instructions Interventions: ED Discharge Assessment Last Done: 10/27/22 21:43
[2022-10-27 18:24] LABS: Basophils # (auto) 0.06 K/uL (0-0.2); Basophils % (auto) 0.3 %; Eosinophils # (auto) 0.08 K/uL (0-0.50); Eosinophils % (auto) 0.5 %; Hematocrit (blood only) 34.3 % (34.1-44.9); Hemoglobin 11.7 g/dl (12.0-16.0); Immature Granulocytes # (auto) 0.11 K/uL (0.00-0.02); Immature Granulocytes % (auto) 0.6 %; Lymphocytes # (auto) 1.38 K/uL (1.2-3.4); Lymphocytes % (auto) 7.9 %; Mean Corpuscular Hemoglobin 30.4 pg (25.0-34.0); Mean Corpuscular Hgb Conc 34.1 g/dL (32.0-36.0); Mean Corpuscular Volume 89.1 fL (80.0-100.0); Mean Platelet Volume 9.2 fL (9.4-12.3); Monocytes # (auto) 1.19 K/uL (0.24-0.82); Monocytes % (auto) 6.8 %; Neutrophils # (auto) 14.59 K/uL (1.4-6.5); Neutrophils % (auto) 83.9 %; Platelet Count 261 K/uL (130-400); RDW Coefficient of Variation 14.1 % (11.5-14.5); RDW Standard Deviation 45.8 fL (36.4-46.3); Red Blood Count 3.85 M/uL (3.93-5.22); White Blood Count 17.41 K/ul (4.8-10.8)
[2022-10-27 18:31] LABS: Appearance Urine Clear (Clear); Bacteria Urine Automated Negative (Negative); Bilirubin Urine Negative (Negative); Blood Urine Negative (Negative); Cast Urine Automated 0 /lpf (0-5); Color Urine Yellow; Epithelial Cell Urine Auto 20-30 /lpf (0-5); Glucose Urine UA Negative (Negative); Ketones Urine Negative (Negative); Leukocyte Esterase Urine Trace (Negative); Nitrite Urine Negative (Negative); Protein Urine 1+ (Negative); RBC Urine Automated 0-4 /hpf (0-4); Specific Gravity Urine 1.014 (1.000-1.030); Urobilinogen Urine Negative (Negative)
--- NOTE | 2022-10-27 18:55 | XRay Report ---
XR chest 1V portable HISTORY: 87 years-old Female Chest pain, nonspecific acute chest pain COMPARISON: Chest radiograph 09/18/2022 TECHNIQUE: AP view the chest FINDINGS: Cardiac silhouette is enlarged. Left subclavian pacer. Atherosclerosis of the aorta. No pneumothorax, pleural effusion or overt pulmonary edema. Degenerative changes of the shoulders. Healed chronic lef t-sided rib fractures. The questioned 9 mm nodular density of the left lung is not definitively seen on today's study. IMPRESSION: No acute process. ACT 112: Negative or not required by law. The above report was generated using voice recognition software. It may contain grammatical, syntax o r spelling errors. Electronically signed by: Adrian Story M.D. 10/27/2022 6:54 PM
[2022-10-27 18:56] LABS: Troponin I High Sensitivity 26.1 pg/ml (0-14)
[2022-10-27 19:02] LABS: Influenza A virus by PCR Negative (Neg); Influenza B virus by PCR Negative (Neg); RSV by PCR Negative (Neg); SARS CoV2 RNA(COVID-19) Ceph NEGATIVE (Negative)
[2022-10-27 19:04] LABS: Albumin Globulin Ratio 1.2 (0.9-2); Albumin Level 3.9 gm/dl (3.4-5.0); Bilirubin,Total 0.6 mg/dl (0.2-1.0); Calcium 9.1 mg/dl (8.5-10.1); Creatinine Clr Calc Pharmacy 34.1 ml/min; Est GFR (African American) 57.8 ml/min; Est GFR (Non-African American) 49.9 ml/min; Globulin 3.3 gm/dl (2.5-4.0); Magnesium 1.9 mg/dl (1.7-2.4); Phosphorus 2.7 mg/dl (2.5-4.9); Potassium 3.9 mmol/L (3.5-5.1); Total Protein 7.2 gm/dl (6.0-8.3)
[2022-10-27] MEDS ORDERED: VANCOMYCIN HCL 1,500 MG in SODIUM CHLORIDE 0.9% 500 ML IV ONE (19:22)
[2022-10-27] MEDS ORDERED: VANCOMYCIN CONSULT ACTIVE PRN (19:22)
[2022-10-27] MEDS ORDERED: CEFEPIME 2,000 MG/20 ML VIAL IV STA (19:22)
[2022-10-27] MEDS ORDERED: SODIUM CHLORIDE 0.9% 1000ML 1,000 ML IV ONE (19:25)
[2022-10-27] MEDS ORDERED: OPTIRAY 350 100ml IV ONE (19:44)
--- NOTE | 2022-10-27 20:08 | History & Physical Report ---
Date of Service October 27, 2022 Assessment & Plan (1) Multifocal pneumonia: Plan: - Patient's main complaint is fevers, cough, congestion for the past several days [facility] with hypoxia today in the 80s. She does have asthma, typically on room air and uses inhalers as prescribed. - WBC 17, procalcitonin 0.21, CXR without evidence of pneumonia, however CT A/P with evidence of multifocal pneumonia. - Was given cefepime and vancomycin in the ED. Given suspicion for aspiration, will cover with Unasyn, add on MRSA nares if negative will discontinue vancomycin. - Aspiration precautions, speech consulted to evaluate while admitted. - Supportive care for fevers, pain, cough, shortness of breath. (2) Elevated troponin I level: Plan: - Troponin minimally elevated at 26.1, in setting of hypoxia suspect this is demand. - Does not have any chest pain, palpitations, shortness of breath the patient is demented at baseline unable to provide meaningful history. - EKG with chronic LBB B, atrial paced rhythm, no ST segment or T wave inversions. - We will trend troponin, she was recently admitted 2 months ago and had a full echo at that time, therefore if troponin stays minimally elevated, will defer on echo this admission. - Echo 09/13: Left ventricular size normal, normal LV wall thickness, basal septal thickening septum, left ventricular systolic function normal, EF 55 to 6 0%, RVSP elevated at 30-40 mmHg, grade 1 diastolic dysfunction. (3) Paroxysmal atrial fibrillation with rapid ventricular response: Plan: - S/p dual-chamber pacemaker placement in 2018 - Continue metoprolol, diltiazem. - Continue Eliquis. (4) DM w/o complication type II, uncontrolled: Plan: - Continue home regimen: Lantus 10 units HS with SSI. (previously on 18 units of Lantus, was hypoglycemic on last admission, this was decreased to 8 units at night during last admission. Per facility paperwork, taking 10 units of Lantus now.) - DM diet. - A1c in February was 6.5%, historically has been under 7% for the past 3 years, appropriate given her age. (5) HTN (hypertension): Plan: - Continue metoprolol, losartan, isosorbide nitrate. (6) Chronic kidney disease, stage III (moderate): Plan: - Creatinine is at her baseline, continue to monitor. - Renally dose medications as able, avoid nephrotoxins. (7) Asthma: Plan: - Patient with reports of cough, shortness of breath, fever but on room air. - CXR without evidence of acute disease process, negative for COVID/flu/RSV. - Continue home inhalers for now. DuoNeb added on scheduled/prn. (8) Depression: Plan: - Continue fluoxetine. (9) GERD (gastroesophageal reflux disease): Plan: - Continue Pepcid. Change omeprazole to Protonix per hospital formulary. (10) Dementia: Plan: - Patient has baseline dementia, worse with illnesses, but is typically able to care for herself in assisted living. - History of sundowning, patient will benefit from a room close to the nursing station. Plan - Admit to medicine with telemetry. - SCDs, Eliquis to be continued for DVT PPx. - DNR/DNI. History of Present Illness Chief Complaint: fever, cough, congestion x one week Primary Care Provider: DO Bhavana Barrrosie Mcguire is an 87-year-old female with a past medical history significant for atrial fibrillation, pacemaker, hypertension, hyperlipidemia, DM2, CKD, COPD, depression, and dementia who is presenting today from [facility]. Over the past couple days she has had low-grade fevers, cough, and congestion and found to be hypoxic on several occasion and 80s on room air. Patient is confused at visit, she voices no specific complaints. Son at bedside notes her confusion is worse than baseline, as her dementia usually is worse with illness. He also has concerns for aspiration, notes that while she does not have a very good appetite when she does eat he is concerned that she is choking on her food. On presentation, she is hypertensive 175/110, 89% on room air, afebrile, without tachycardia or tachypnea. Labs notable for a white count of 17, procalcitonin 0.21. HS troponin mildly elevated at 26. Sodium slightly low at 132, otherwise without any electrolyte abnormalities, her renal function is at baseline. Hepatic function WNL, stable. Anemia is chronic, stable. UA contaminated with epithelial cells, has 1030 WBCs and trace leukocyte esterase, does not appear overwhelmingly infected. COVID/flu/RSV negative. CXR shows no acute process. CT A/P Allergies Allergy/AdvReac Type Severity Reaction Status Date / Time No Known Allergies Allergy Verified 10/27/22 19:19 Home Medications Medication Instructions Recorded Confirmed Type aspirin 81 mg tablet,delayed 81 mg PO QAM 02/02/19 10/27/22 History release calcium carbonate 500 mg-vitamin 1 tab PO QAM 02/02/19 10/27/22 History D3 5 mcg (200 unit) tablet (Oyster Shell Calcium-Vitamin D3) fluoxetine 20 mg capsule 20 mg PO BID 02/02/19 10/27/22 History metoprolol succinate 100 mg 100 mg PO QAM 02/02/19 10/27/22 History tablet,extended release 24 hr multivitamin 1 tab PO QAM 02/02/19 10/27/22 History omega 8-tdy-rju-fish oil 1,000 mg 1 cap PO BID 02/02/19 10/27/22 History (120 mg-180 mg) capsule (Fish Oil) losartan 100 mg tablet 100 mg PO DAILY 03/11/19 10/27/22 History acetaminophen 500 mg tablet 500 - 1,000 mg PO DAILY PRN Pain 07/26/19 10/27/22 History (Tylenol Extra Strength) apixaban 5 mg tablet (Eliquis) 5 mg PO BID 06/25/20 10/27/22 History famotidine 20 mg tablet (Pepcid) 20 mg PO DAILY PRN gastric reflux 06/30/20 10/27/22 History umeclidinium 62.5 mcg/actuation 1 inh inhalation QAM 01/05/21 10/27/22 History blister powder for inhalation (Incruse Ellipta) fluticasone 250 mcg-salmeterol 50 1 inh inhalation BID 02/15/21 10/27/22 History mcg/dose blistr powdr for inhalation (Wixela Inhub) menthol 0.44 %-zinc oxide 20.6 % 1 applic topical DIRECTED PRN 02/15/21 10/27/22 History topical ointment (Calmoseptine) SKIN BREAKDOWN omeprazole 40 mg capsule,delayed 40 mg PO QAM 02/15/21 10/27/22 History release psyllium husk 3.4 gram/5.4 gram 1 tbsp PO DAILY 02/15/21 10/27/22 History oral powder (Metamucil) isosorbide mononitrate 30 mg 30 mg PO DAILY 07/25/22 10/27/22 History tablet,extended release 24 hr amoxicillin 500 mg capsule 2,000 mg PO DIRECTED PRN 1 HR 10/27/22 10/27/22 History PRIOR TO DENTAL APPT. chlorpheniramine-acetaminophen 2 1 tab PO DIRECTED PRN COLD/FLU 10/27/22 10/27/22 History mg-325 mg tablet (Coricidin HBP SYMPTOMS Cold and Flu) cranberry concentrate-ascorbic 1 cap PO BID 10/27/22 10/27/22 History acid 140 mg-100 mg capsule (Cranberry Plus Vitamin C) diltiazem HCl 180 mg 180 mg PO DAILY 10/27/22 10/27/22 History capsule,extended release 24 hr docusate sodium 100 mg capsule 100 mg PO DAILY 10/27/22 10/27/22 History docusate sodium 100 mg capsule 100 mg PO DAILY PRN Constipation 10/27/22 10/27/22 History insulin glargine 100 unit/mL (3 10 unit SC HS 10/27/22 10/27/22 History mL) subcutaneous pen (Lantus Solostar U-100 Insulin) ipratropium 0.5 mg-albuterol 3 mg 3 ml inhalation QID PRN Shortness 10/27/22 10/27/22 History (2.5 mg base)/3 mL nebulization Of Breath Or Wheezing soln nystatin-triamcinolone 100,000 1 applic topical BID PRN FUNGAL 10/27/22 10/27/22 History unit/g-0.1 % topical cream RASH phenylephrine-shark liver 1 applic ME DIRECTED PRN 10/27/22 10/27/22 History oil-mineral oil-petrolatum rectal Hemorrhoids ointment (Hemorrhoid ointment) Past Med/Surg History Medical History Asthma Dependence on supplemental oxygen Essential (primary) hypertension Former smoker Frozen shoulder Hyperlipidemia Pacemaker PAT (paroxysmal atrial tachycardia) Sinus node dysfunction Symptomatic bradycardia Syncope Surgical History H/O bilateral cataract extraction History of left hip replacement History of right hip replacement History of total abdominal hysterectomy and bilateral salpingo-oophorectomy Family History Father Cancer laryngeal (smoker) Mother Ovarian cancer Social History Smoking Status: Never smoker Tobacco Type: Cigarettes Cigarettes Per Day: <1/2 ppd x 40 years; Second Hand Exposure: No; Hx Alcohol Use: No Hx Substance Use: No Preferred Language: Turkish Communication Ability: Impaired Oil Operator Required: No Beliefs That Will Affect Care: None marital status: / Current Living Situation: Family Current Living Situation Comment: [facility] current occupational status: retired 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) other: 2 daughters, 1 son Feels Safe at Home: Yes Safety Concerns: Feels Safe At This Time Assistive Devices: Oxygen - at Night and Walker Review of Systems Review of Systems: Constitutional: fever/chills x several days; no weakness, fatigue, myalgias, anorexia, night sweats Eyes: No diplopia, no worsening or blurred vision ENT: normal hearing, no trouble swallowing Respiratory: cough, sputum, dyspnea on exertion x several days Cardiovascular: No chest pain, tightness or palpitations Abdomen: No pain, nausea, vomiting, diarrhea or constipation : Denies dysuria, hematuria, increased urgency/frequency, urinary retention Musculoskeletal: No joint pain, calf pain, swelling Neurologic: No weakness, numbness/tingling, or balance problems Psychiatric: No anxiety or depression Skin: No rash or itch Physical Exam Physical Exam: General: awake, alert, no apparent distress Head: Normocephalic, atraumatic ENT: PERRL, EOMI, no pharyngeal exudate, mucous membranes moist Chest: Clear to auscultation, on room air, no adventitious breath sounds Cardiac: Regular rate and rhythm, no murmur, no JVD, normal peripheral pulses, good capillary refill Abdominal: NABS x 4 quadrants, soft, nontender to palpation, no rebound, guarding or tenderness Extremities: Normal inspection, no peripheral edema or erythema, calfs nontender to palpation Psych: Normal mood and affect Neuro: AAO x 3, strength intact bilaterally and rated 5/5, no motor deficits, speech is clear, no peripheral sensory deficits Skin: no rash or erythema Results & Data Results & Data ([facility]) Vital Signs (Past 12 Hours) Vital Signs Temp Pulse Pulse Resp BP BP Pulse Ox 10/27/22 18:51 78 18 157/63 H 93 10/27/22 18:17 89 L 10/27/22 17:51 37.4 C 18 175/110 H 96 10/27/22 17:51 37.4 C 67 18 175/110 H 95 O2 Del Method O2 Flow Rate 10/27/22 18:51 Room Air 10/27/22 18:17 Room Air 10/27/22 17:51 Nasal Cannula 2 10/27/22 17:51 Nasal Cannula 2 Laboratory Results Abnormal lab results 10/27/22 10/27/22 10/27/22 Range/Units 17:54 17:54 18:11 WBC 17.41 H (4.8-10.8) K/ul RBC 3.85 L (3.93-5.22) M/uL Hgb 11.7 L (12.0-16.0) g/dl MPV 9.2 L (9.4-12.3) fL Neut # (Auto) 14.59 H (1.4-6.5) K/uL [place] # (Auto) 1.19 H (0.24-0.82) K/uL Immature Gran # (Auto) 0.11 H (0.00-0.02) K/uL Sodium 132 L (136-145) mmol/L Chloride 97 L (98-107) mmol/L Glucose 126 H (70-99(Fasting)) mg/dl Troponin I High Sens 26.1 H (0-14) pg/ml Lipase 10 L (11-82) U/L Urine Protein 1+ H (Negative) Ur Leukocyte Esterase Trace H (Negative) Urine WBC (Auto) 10-30 H (0-5) /hpf U Epithel Cells (Auto) 20-30 H (0-5) /lpf Diagnostic Findings Chest X-Ray 10/27/22 18:02 XR chest 1V portable HISTORY: 87 years-old Female Chest pain, nonspecific acute chest pain COMPARISON: Chest radiograph 09/18/2022 TECHNIQUE: AP view the chest FINDINGS: Cardiac silhouette is enlarged. Left subclavian pacer. Atherosclerosis of the aorta. No pneumothorax, pleural effusion or overt pulmonary edema. Degenerative changes of the shoulders. Healed chronic left-sided rib fractures. The questioned 9 mm nodular density of the left lung is not definitively seen on today's study. IMPRESSION: No acute process. ACT 112: Negative or not required by law. The above report was generated using voice recognition software. It may contain grammatical, syntax or spelling errors. Electronically signed by: Adrian Story M.D. 10/27/2022 6:54 PM Abdomen/Pelvis CT 10/27/22 19:[address] WITH IV CONTRAST CT DOSE: 365.35 mGy.cm HISTORY: Acute sepsis with urinary tract infection sepsis, leukocytosis, uti TECHNIQUE: Multiaxial CT images of the abdomen and pelvis were performed following the IV administration of 80 cc of Optiray, A dose lowering technique was utilized adhering to the principles of ALARA. COMPARISON STUDY: CT abdomen and pelvis 02/15/2021 FINDINGS: Cardiomegaly with partially imaged pacer leads and coronary artery calcifications. Patchy bibasilar groundglass and consolidative opacities lung bases. Study is degraded by respiratory motion artifact. No pneumatosis or pneumoperitoneum. Calcified granulomata of the liver and spleen. Moderately atrophic pancreas. Hypertrophied adrenal glands. Cholelithiasis without CT evidence of acute cholecystitis. Unremarkable liver. Patency of the hepatic and portal veins. Unremarkable kidneys. No hydronephrosis. Streak artifact from hip arthroplasties limits evaluation of the pelvic structures. Partial distention of the urinary bladder with mild wall thickening. Atherosclerosis of the aorta with infrarenal ectasia measuring up to 2.6 cm. No lymphadenopathy. Small hiatal hernia. Moderate fecal retention of the rectum. No bowel obstruction or bowel wall thickening. Mild colonic diverticulosis. Normal appendix. No ascites or mesenteric inflammation. Degenerative changes of the spine and pelvis. No acute fracture identified. Chronic 25% L1 compression deformity. IMPRESSION: 1. No acute intra-abdominal or intrapelvic abnormality. 2. No bowel obstruction or bowel wall thickening. 3. Cholelithiasis. 4. Mild patchy bibasilar opacities are suggestive of multifocal pneumonia. 5. Additional findings as above. ACT 112: Negative or not required by law. The above report was generated using voice recognition software. It may contain grammatical, syntax or spelling errors. Electronically signed by: Adrian Story M.D. 10/27/2022 8:17 PM Code Status & VTE Plan Code Status DNR/DNI. Supervising Physician Co-Signing Physician Notes Attending addendum: I have physically seen this patient, have supervised the VIVIAN's activities, and agree with the H&P unless as otherwise noted. Assessment and Plan: Multifocal pneumonia- Received vancomycin IV and cefepime IV from the ED Placed on Unasyn IV Check MRSA swab, and if negative, stop vancomycin Aspiration precautions Consult speech therapy Elevated troponin/CAD/paroxysmal A. fib/history A. fib with RVR/hypertension- The patient will be admitted to telemetry for serial cardiac enzymes, serial EKG's, cardiac rhythm monitoring and a 2-D echocardiogram with Dopplers. Troponin 26.1 on admission Continue metoprolol, diltiazem, losartan, isosorbide mononitrate and Eliquis Diabetes mellitus- Continue Lantus with SSI Remaining orders and notations as noted PG Care Time/CCT Total # of Minutes Spent Total Time Spent with Patient: Total time spent is greater than 50% in coordination of care (as documented) at patient's floor/unit and/or counseling patient: Coding Level of Care Code 32174 INT INP/OBS CARE 3/75MIN Diagnoses Multifocal pneumonia J18.9 Elevated troponin I level R77.8 Paroxysmal atrial fibrillation with rapid ventricular response I48.0 DM w/o complication type II, uncontrolled E11.65 Glycemic state: with hyperglycemia HTN (hypertension) I10 Hypertension type: essential hypertension Chronic kidney disease, stage III (moderate) N18.32 Chronic kidney disease stage 3 subtype: stage 3b (GFR 30-44) Asthma J45.909 Depression F32.A GERD (gastroesophageal reflux disease) K21.9 Dementia F03.90 (1) Chronic kidney disease, stage III (moderate) Chronic kidney disease stage 3 subtype: stage 3b (GFR 30-44) Qualified Code(s): N18.32 - Chronic kidney disease, stage 3b (2) HTN (hypertension) Hypertension type: essential hypertension Qualified Code(s): I10 - Essential (primary) hypertension (3) DM 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
--- NOTE | 2022-10-27 20:19 | CT Scan Report ---
ABDOMEN AND PELVIS CT WITH IV CONTRAST CT DOSE: 365.35 mGy.cm HISTORY: Acute sepsis with urinary tract infection sepsis, leukocytosis, uti TECHNIQUE: Multiaxial CT images of the abdomen and pelvis were performed following the IV administrat ion of 80 cc of Optiray, A dose lowering technique was utilized adhering to the principles of ALARA. COMPARISON STUDY: CT abdomen and pelvis 02/15/2021 FINDINGS: Cardiomegaly with partially imaged pacer leads and coronary artery calcifications. Patchy b ibasilar groundglass and consolidative opacities lung bases. Study is degraded by respiratory motion artifact. No pneumatosis or pneumoperitoneum. Calcified granulomata of the liver and spleen. Moderate ly atrophic pancreas. Hypertrophied adrenal glands. Cholelithiasis without CT evidence of acute rodolfo cystitis. Unremarkable liver. Patency of the hepatic and portal veins. Unremarkable kidneys. No hydronephrosis. Streak artifact from hip arthroplasties limits evaluation of the pelvic structures. Partial distention of the urinary bladder with mild wall thickening. Atherosc lerosis of the aorta with infrarenal ectasia measuring up to 2.6 cm. No lymphadenopathy. Small hiatal hernia. Moderate fecal retention of the rectum. No bowel obstruction or bowel wall thickening. Mild colonic diverticulosis. Normal appendix. No ascites or mesenteric inflammation. Degenerative changes of the spine and pelvis. No acute fracture identified. Chronic 25% L1 compression deformity. IMPRESSION: 1. No acute intra-abdominal or intrapelvic abnormality. 2. No bowel obstruction or bowel wall thickening. 3. Cholelithiasis. 4. Mild patchy bibasilar opacities are suggestive of multifocal pneumonia. 5. Additional findings as above. ACT 112: Negative or not required by law. The above report was generated using voice recognition software. It may contain grammatical, syntax o r spelling errors. Electronically signed by: Adrian Story M.D. 10/27/2022 8:17 PM
[2022-10-27] MEDS ORDERED: PHENYLEPHRINE PR PRN (21:54)
[2022-10-27] MEDS ORDERED: GLUCOSE 40% GEL 15 GM TUBE PO PRN (21:54)
[2022-10-27] MEDS ORDERED: GLUCAGON FOR INJ 1 MG VIAL SQ PRN (21:54)
[2022-10-27] MEDS ORDERED: DEXTROSE 50% 50 ML SYRINGE IV PRN (21:54)
[2022-10-27] MEDS ORDERED: ALBUT/IPRATROP 3MG/0.5MG NEB 3 ML VIAL INH PRN (21:54)
[2022-10-27] MEDS ORDERED: ACETAMINOPHEN 325 MG TAB PO PRN (21:54)
[2022-10-27] MEDS ORDERED: PETROLATUM PR PRN (21:54)
[2022-10-27] MEDS ORDERED: GLUCOSE 10 TAB/TUBE PO PRN (21:54)
[2022-10-27] MEDS ORDERED: DOCUSATE SODIUM 100 MG CAP PO PRN (21:54)
[2022-10-27] MEDS ORDERED: POLYETHYLENE (MIRALAX) 17 GM PACK PO PRN (21:54)
[2022-10-27] MEDS ORDERED: SHARK LIVER OIL PR PRN (21:54)
[2022-10-27] MEDS ORDERED: ALUMINUM/MAGNESIUM SUSP 30 ML UDC PO PRN (21:54)
[2022-10-27] MEDS ORDERED: ONDANSETRON INJ 2 MG/ML 2 ML VIAL IV PRN (21:54)
[2022-10-27] MEDS ORDERED: FAMOTIDINE 20 MG TAB PO PRN (21:54)
[2022-10-27] MEDS ORDERED: CARBOHYDRATES FOR HYPOGLYCEMIA PO PRN (21:54)
[2022-10-27] MEDS ORDERED: MINERAL OIL PR PRN (21:54)
[2022-10-27] MEDS ORDERED: ALBUT/IPRATROP 3MG/0.5MG NEB 3 ML VIAL NEB PRN (21:54)
[2022-10-27] MEDS ORDERED: MENTHOL-ZINC OXIDE 360 APPLN/120 GM TUBE EXT PRN (22:18)
[2022-10-27] MEDS: FLUoxetine HCL 20 MG CAP PO SCH (22:41)
[2022-10-27] MEDS: APIXABAN 5 MG TABLET PO SCH (22:42)
[2022-10-27] MEDS: LANTUS PER UNIT CHARGE SQ SCH (22:57)
[2022-10-27] MEDS: OMEGA-3 (PURIFIED FISH OIL) 1 GM CAP PO SCH (22:57)
[2022-10-27] MEDS: INSULIN ASPART PER UNIT SC SCH (22:57)
[2022-10-28] MEDS: ALBUT/IPRATROP 3MG/0.5MG NEB 3 ML VIAL INH SCH ×4 (00:32→20:16)
[2022-10-28] MEDS: AMPICILLIN/SULBACTAM SOD 3,000 MG in 0.9 % SODIUM CHLORIDE 100 ML IV SCH ×4 (02:17→20:48)
[2022-10-28 07:52] LABS: Basophils # (auto) 0.01 K/uL (0-0.2); Basophils % (auto) 0.1 %; Hematocrit (blood only) 34.3 % (34.1-44.9); Hemoglobin 11.3 g/dl (12.0-16.0); Immature Granulocytes # (auto) 0.04 K/uL (0.00-0.02); Immature Granulocytes % (auto) 0.4 %; Mean Corpuscular Hgb Conc 32.9 g/dL (32.0-36.0); Mean Platelet Volume 9.6 fL (9.4-12.3); Monocytes # (auto) 0.19 K/uL (0.24-0.82); Monocytes % (auto) 1.7 %; Neutrophils # (auto) 10.18 K/uL (1.4-6.5); Neutrophils % (auto) 89.8 %; Platelet Count 234 K/uL (130-400); RDW Coefficient of Variation 14.2 % (11.5-14.5); RDW Standard Deviation 47.4 fL (36.4-46.3); Red Blood Count 3.77 M/uL (3.93-5.22); White Blood Count 11.32 K/ul (4.8-10.8)
[2022-10-28 08:13] LABS: Calcium 9.2 mg/dl (8.5-10.1); Creatinine Clr Calc Pharmacy 36.7 ml/min; Est GFR (African American) 62.3 ml/min; Est GFR (Non-African American) 53.8 ml/min
[2022-10-28] MEDS: APIXABAN 5 MG TABLET PO SCH ×2 (08:37→20:51)
[2022-10-28] MEDS: OMEGA-3 (PURIFIED FISH OIL) 1 GM CAP PO SCH ×2 (08:37→20:51)
[2022-10-28] MEDS: CALCIUM 600MG + VIT D 400 IU TAB PO SCH (08:38)
[2022-10-28] MEDS: LOSARTAN POTASSIUM 50 MG TAB PO SCH (08:38)
[2022-10-28] MEDS: ASPIRIN 81 MG ECTAB PO SCH (08:38)
[2022-10-28] MEDS: dilTIAZem HCL 180 MG CAPCR PO SCH (08:38)
[2022-10-28] MEDS: METOPROLOL SUCC 50MG EXT REL TAB PO SCH (08:38)
[2022-10-28] MEDS: DOCUSATE SODIUM 100 MG CAP PO SCH (08:38)
[2022-10-28] MEDS: FLUoxetine HCL 20 MG CAP PO SCH ×2 (08:38→20:51)
[2022-10-28] MEDS: PANTOprazole 40 MG TAB PO SCH (08:39)
[2022-10-28] MEDS: ISOSORBIDE MONO EXTENDED REL 30 MG TABCR PO SCH (08:39)
[2022-10-28] MEDS: FLUTICASONE/VILANTEROL 200/25MCG 14 PUFFS/INHALER INH SCH (08:39)
[2022-10-28] MEDS: PSYLLIUM or GUAR GUM FIBER POWDER PACKET PO SCH (08:39)
[2022-10-28] MEDS: MULTIVITAMIN TAB PO SCH (08:39)
[2022-10-28] MEDS: UMECLIDINIUM BROMIDE 62.5MCG/BLISTER 7 PUFFS/INHALER INH SCH (08:40)
[2022-10-28] MEDS: INSULIN ASPART PER UNIT SC SCH ×4 (08:46→20:50)
[2022-10-28 09:37] LABS: Estimated Average Glucose 137 mg/dl; Hemoglobin A1C 6.4 % (4.5-5.6)
--- NOTE | 2022-10-28 13:58 | Hospitalist Progress Note ---
Date of Service October 28, 2022 Assessment & Plan (1) Multifocal pneumonia: Plan: Currently on intravenous Unasyn, day 2. White blood cell count is trending down. She is now on room air. We will repeat chest x-ray tomorrow, October 29. MRSA nasal swab is negative and vancomycin has been discontinued. (2) Elevated troponin I level: Plan: Appears to be due to demand ischemia. No evidence of acute coronary syndrome. No current chest pain. Telemetry. Echo 09/13: Left ventricular size normal, normal LV wall thickness, basal septal thickening septum, left ventricular systolic function normal, EF 55 to 60%, RVSP elevated at 30-40 mmHg, grade 1 diastolic dysfunction. (3) Paroxysmal atrial fibrillation with rapid ventricular response: Plan: Telemetry. S/p dual-chamber pacemaker placement in 2018. Continue metoprolol, diltiazem. Continue Eliquis. (4) DM w/o complication type II, uncontrolled: Plan: ADA diet. Lantus. Sliding scale insulin coverage as needed. A1c in February was 6.5%, historically has been under 7% for the past 3 years, appropriate given her age. (5) HTN (hypertension): Plan: Controlled. Continue metoprolol, losartan, isosorbide nitrate. (6) Chronic kidney disease, stage III (moderate): Plan: Creatinine is at her baseline. Monitor intake and output. Serial labs. (7) Asthma: Plan: Acute exacerbation of COPD. Treat underlying pneumonia. She is now on room air. Negative for COVID/flu/RSV. (8) Depression: Plan: Stable on fluoxetine. (9) GERD (gastroesophageal reflux disease): Plan: Stable on Pepcid and PPI. (10) Dementia: Plan: baseline dementia, worse with illnesses, but is typically able to care for herself in assisted living. History of sundowning. Supportive care Plan DVT prophylaxis: She is currently on Eliquis Disposition: Anticipate eventual return to long-term care facility Admission and Anticipated Discharge Date Admission Date: October 27, 2022 Subjective Alert and oriented. No new problems. Elevated troponin appears to be due to demand ischemia. Working diagnosis is pneumonia and she currently is on Unasyn. MRSA nasal swab was negative and vancomycin has been discontinued. We will repeat portable chest x-ray tomorrow, October 29. She is now on room air. Review of Systems Review of Systems: Constitutional-no fever or chills ENT-no blurred vision, no double vision, no epistaxis, no sore throat Respiratory-nonproductive cough. Some shortness of breath noted with exertion. No current audible wheezing Cardiac-no palpitations, no chest pain, no syncope GI-no nausea, vomiting, diarrhea, melena, hematochezia -no urinary retention, no urinary incontinence, no dysuria, no hematuria Musculoskeletal-no joint pain, no muscle tenderness Skin-no bruising, no rashes, no pruritus Neuro-no isolated weakness, no paresthesia, no weakness Psych-no depression, no anxiety Physical Exam Physical Exam: General-alert and oriented x3, no fevers, no chills HEENT-head atraumatic and normocephalic, pupils equal and reactive to light, extraocular muscles intact Neck-no lymphadenopathy or thyromegaly, trachea midline Chest-scattered bilateral rhonchi. No inspiratory rales. No wheezing. Cardiac-regular rate and rhythm, normal S1 and S2 Abdomen-normal bowel sounds, nontender, no hepatosplenomegaly Extremities-no cyanosis, clubbing, or edema Neuro-cranial nerves II through XII intact, motor and sensory function within normal limits, strength symmetrical , no focal deficits Psych-normal affect, normal mood Results & Data Results & Data ([facility]) Vital Signs (Past 12 Hours) Vital Signs Temp Pulse Pulse Pulse Resp BP Pulse Ox 10/28/22 13:11 63 18 94 10/28/22 11:51 36.5 C 70 20 163/72 H 92 10/28/22 09:15 10/28/22 07:15 60 10/28/22 08:00 36.5 C 71 20 158/70 H 93 10/28/22 07:34 66 16 93 O2 Del Method O2 Flow Rate 10/28/22 13:11 Room Air 10/28/22 11:51 Room Air 10/28/22 09:15 Nasal Cannula 2 10/28/22 07:15 10/28/22 08:00 Room Air 10/28/22 07:34 Room Air Laboratory Results 10/28/22 07:09 10/28/22 07:09 PG Care Time/CCT Total # of Minutes Spent Total Time Spent with Patient: Total time spent is greater than 50% in coordination of care (as documented) at patient's floor/unit and/or counseling patient: Coding Level of Care Code 58105 SUB INP/OBS CARE 50MIN Diagnoses Multifocal pneumonia J18.9 Elevated troponin I level R77.8 Paroxysmal atrial fibrillation with rapid ventricular response I48.0 DM w/o complication type II, uncontrolled E11.65 Glycemic state: with hyperglycemia HTN (hypertension) I10 Hypertension type: essential hypertension Chronic kidney disease, stage III (moderate) N18.32 Chronic kidney disease stage 3 subtype: stage 3b (GFR 30-44) Asthma J45.909 Depression F32.A GERD (gastroesophageal reflux disease) K21.9 Dementia F03.90 (1) DM 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 (2) HTN (hypertension) Hypertension type: essential hypertension Qualified Code(s): I10 - Essential (primary) hypertension (3) Chronic kidney disease, stage III (moderate) Chronic kidney disease stage 3 subtype: stage 3b (GFR 30-44) Qualified Code(s): N18.32 - Chronic kidney disease, stage 3b
--- NOTE | 2022-10-28 15:53 | Electrocardiogram Report ---
Test Reason : Blood Pressure : / mmHG Vent. Rate : 067 BPM Atrial Rate : 067 BPM P-R Int : 258 ms QRS Dur : 142 ms QT Int : 446 ms P-R-T Axes : 000 -29 090 degrees QTc Int : 471 ms Atrial-paced rhythm with prolonged AV conduction Left bundle branch block Abnormal ECG When compared with ECG of 18-SEP-2022 15:59, No significant change was found Confirmed by Luiz Hartmann ([id number]) on 10/28/2022 3:52:44 PM Referred By: REFERRED SELF Confirmed By:Luiz Hartmann
--- NOTE | 2022-10-28 15:54 | Electrocardiogram Report ---
Test Reason : Blood Pressure : / mmHG Vent. Rate : 067 BPM Atrial Rate : 267 BPM P-R Int : 250 ms QRS Dur : 156 ms QT Int : 490 ms P-R-T Axes : 000 -15 087 degrees QTc Int : 517 ms Poor data quality, interpretation may be adversely affected Atrial-paced rhythm with prolonged AV conduction Left bundle branch block Abnormal ECG When compared with ECG of 27-OCT-2022 17:45, (unconfirmed) No significant change was found Confirmed by Luiz Hartmann ([id number]) on 10/28/2022 3:54:13 PM Referred By: REFERRED SELF Confirmed By:Luiz Hartmann
[2022-10-28] MEDS: LANTUS PER UNIT CHARGE SQ SCH (20:50)
[2022-10-29] MEDS: ALBUT/IPRATROP 3MG/0.5MG NEB 3 ML VIAL INH SCH ×2 (01:17→07:53)
[2022-10-29] MEDS: AMPICILLIN/SULBACTAM SOD 3,000 MG in 0.9 % SODIUM CHLORIDE 100 ML IV SCH ×4 (02:37→20:40)
--- NOTE | 2022-10-29 05:18 | Billing Data ---
Date of Service October 29, 2022 Coding Level of Care Code 21191 INT INP/OBS CARE
[2022-10-29 07:41] LABS: Basophils # (auto) 0.01 K/uL (0-0.2); Basophils % (auto) 0.1 %; Hematocrit (blood only) 31.9 % (34.1-44.9); Hemoglobin 10.7 g/dl (12.0-16.0); Immature Granulocytes # (auto) 0.06 K/uL (0.00-0.02); Immature Granulocytes % (auto) 0.4 %; Lymphocytes # (auto) 1.51 K/uL (1.2-3.4); Lymphocytes % (auto) 10.6 %; Mean Corpuscular Hemoglobin 30.1 pg (25.0-34.0); Mean Corpuscular Hgb Conc 33.5 g/dL (32.0-36.0); Mean Corpuscular Volume 89.6 fL (80.0-100.0); Mean Platelet Volume 9.2 fL (9.4-12.3); Monocytes % (auto) 5.6 %; Neutrophils # (auto) 11.89 K/uL (1.4-6.5); Neutrophils % (auto) 83.3 %; Platelet Count 249 K/uL (130-400); RDW Coefficient of Variation 14.5 % (11.5-14.5); RDW Standard Deviation 47.2 fL (36.4-46.3); Red Blood Count 3.56 M/uL (3.93-5.22); White Blood Count 14.27 K/ul (4.8-10.8)
[2022-10-29 08:02] LABS: Potassium 3.9 mmol/L (3.5-5.1)
--- NOTE | 2022-10-29 08:02 | XRay Report ---
XR chest 1V portable HISTORY: 87 years-old Female pneumonia acute shortness of breath with reported pneumonia COMPARISON: Chest radiograph October 27, 2022 TECHNIQUE: AP view of the chest FINDINGS: Cardiac silhouette is mildly enlarged. Left subclavian pacer. Patchy reticular nodular densities are redemonstrated, most pronounced within the left lung base, slightly progressed. No pneumothorax, larg e pleural effusion or overt pulmonary edema. Degenerative changes of the shoulders and spine. IMPRESSION: Patchy reticular nodular opacities have slightly progressed. Findings are compatible with a nonspecific infectious or inflammatory pneumonitis. ACT 112: Negative or not required by law. The above report was generated using voice recognition software. It may contain grammatical, syntax o r spelling errors. Electronically signed by: Adrian Story M.D. 10/29/2022 8:01 AM
[2022-10-29 08:27] LABS: BUN Creatinine Ratio 15.4 (10-20); Calcium 9.1 mg/dl (8.5-10.1); Creatinine Clr Calc Pharmacy 33.1 ml/min; Est GFR (African American) 55.2 ml/min; Est GFR (Non-African American) 47.6 ml/min
[2022-10-29] MEDS: METOPROLOL SUCC 50MG EXT REL TAB PO SCH (08:45)
[2022-10-29] MEDS: FLUoxetine HCL 20 MG CAP PO SCH ×2 (08:45→20:41)
[2022-10-29] MEDS: APIXABAN 5 MG TABLET PO SCH ×2 (08:45→20:40)
[2022-10-29] MEDS: MULTIVITAMIN TAB PO SCH (08:47)
[2022-10-29] MEDS: PANTOprazole 40 MG TAB PO SCH (08:48)
[2022-10-29] MEDS: CALCIUM 600MG + VIT D 400 IU TAB PO SCH (08:48)
[2022-10-29] MEDS: DOCUSATE SODIUM 100 MG CAP PO SCH (08:49)
[2022-10-29] MEDS: OMEGA-3 (PURIFIED FISH OIL) 1 GM CAP PO SCH ×2 (08:49→20:40)
[2022-10-29] MEDS: ASPIRIN 81 MG ECTAB PO SCH (08:49)
[2022-10-29] MEDS: dilTIAZem HCL 180 MG CAPCR PO SCH (08:49)
[2022-10-29] MEDS: ISOSORBIDE MONO EXTENDED REL 30 MG TABCR PO SCH (08:50)
[2022-10-29] MEDS: LOSARTAN POTASSIUM 50 MG TAB PO SCH (08:50)
[2022-10-29] MEDS: PSYLLIUM or GUAR GUM FIBER POWDER PACKET PO SCH (08:51)
[2022-10-29] MEDS: FLUTICASONE/VILANTEROL 200/25MCG 14 PUFFS/INHALER INH SCH (08:51)
[2022-10-29] MEDS: UMECLIDINIUM BROMIDE 62.5MCG/BLISTER 7 PUFFS/INHALER INH SCH (08:51)
[2022-10-29] MEDS: INSULIN ASPART PER UNIT SC SCH ×4 (09:10→20:39)
[2022-10-29] MEDS: LANTUS PER UNIT CHARGE SQ SCH (20:39)
--- NOTE | 2022-10-29 22:34 | Hospitalist Progress Note ---
Date of Service October 29, 2022 Assessment & Plan (1) Multifocal pneumonia: Plan: - Patient's main complaint is fevers, cough, congestion for the past several days at her personal residential with hypoxia today in the 80s. She does have asthma, typically on room air and uses inhalers as prescribed. - WBC 17, procalcitonin 0.21, CXR without evidence of pneumonia, however CT A/P with evidence of multifocal pneumonia. - Was given cefepime and vancomycin in the ED. Given suspicion for aspiration, will cover with Unasyn, add on MRSA nares if negative will discontinue vancomycin. - Aspiration precautions, speech consulted to evaluate while admitted. - Supportive care for fevers, pain, cough, shortness of breath. 10/29 -mental status improving White count improving on IV antibiotic therapy with Unasyn (2) Elevated troponin I level: Plan: - Troponin minimally elevated at 26.1, in setting of hypoxia suspect this is demand. - Does not have any chest pain, palpitations, shortness of breath the patient is demented at baseline unable to provide meaningful history. - EKG with chronic LBB B, atrial paced rhythm, no ST segment or T wave inversions. - We will trend troponin, she was recently admitted 2 months ago and had a full echo at that time, therefore if troponin stays minimally elevated, will defer on echo this admission. - Echo 09/13: Left ventricular size normal, normal LV wall thickness, basal septal thickening septum, left ventricular systolic function normal, EF 55 to 60%, RVSP elevated at 30-40 mmHg, grade 1 diastolic dysfunction. (3) Paroxysmal atrial fibrillation with rapid ventricular response: Plan: - S/p dual-chamber pacemaker placement in 2018 - Continue metoprolol, diltiazem. - Continue Eliquis. (4) DM w/o complication type II, uncontrolled: Plan: - Continue home regimen: Lantus 10 units HS with SSI. (previously on 18 units o f Lantus, was hypoglycemic on last admission, this was decreased to 8 units at night during last admission. Per facility paperwork, taking 10 units of Lantus now.) - DM diet. - A1c in February was 6.5%, historically has been under 7% for the past 3 years, appropriate given her age. (5) HTN (hypertension): Plan: - Continue metoprolol, losartan, isosorbide nitrate. (6) Chronic kidney disease, stage III (moderate): Plan: - Creatinine is at her baseline, continue to monitor. - Renally dose medications as able, avoid nephrotoxins. (7) Asthma: Plan: - Patient with reports of cough, shortness of breath, fever but on room air. - CXR without evidence of acute disease process, negative for COVID/flu/RSV. - Continue home inhalers for now. DuoNeb added on scheduled/prn. (8) Depression: Plan: - Continue fluoxetine. (9) GERD (gastroesophageal reflux disease): Plan: - Continue Pepcid. Change omeprazole to Protonix per hospital formulary. (10) Dementia: Plan: - Patient has baseline dementia, worse with illnesses, but is typically able to care for herself in assisted living. -Discussed with patient's daughter about patient's underlying dementia and its progressive worsening Discussed plans regarding obtaining complete dementia evaluation upon discharge on Plan - Admit to medicine with telemetry. - SCDs, Eliquis to be continued for DVT PPx. - DNR/DNI. Admission and Anticipated Discharge Date Admission Date: October 27, 2022 Subjective Alert and oriented. No new problems. Patient seen in the room with the daughter who expresses concerns with patient's underlying dementia Mental status slightly improved today She is now on room air. Physical Exam Physical Exam: Constitutional: no acute distress, pleasant. Vitals as above. HEENT: No scleral injection or discharge. . Clear oropharynx without exudate. Neck: Supple without lymphadenopathy or thyromegaly. Trachea midline. Lungs: Bilateral air entry slightly diminished at bases no active wheezing Cardiac: Normal rhythm. No murmurs.No extremity edema. Abdomen:Bowel sounds present. Soft and nondistended. . No guarding or rebound tenderness. MSK: No cyanosis or clubbing. Skin: No rashes, warm, dry. Neurologic: Grossly intact cranial nerves. Results & Data Results & Data ([facility]) Vital Signs (Past 12 Hours) Vital Signs Temp Pulse Pulse Resp BP Pulse Ox O2 Del Method 10/29/22 21:50 Room Air 10/29/22 18:11 36.5 C 61 20 167/65 H 95 Room Air 10/29/22 14:03 64 10/29/22 16:05 36.6 C 67 19 172/74 H 96 Room Air 10/29/22 14:06 36.6 C 62 18 170/73 H 96 Room Air 10/29/22 11:59 37.1 C 81 19 173/77 H 94 Room Air 10/29/22 10:49 Room Air Laboratory Results Short CBC 10/29/22 Range/Units 07:22 WBC 14.27 H (4.8-10.8) K/ul Hgb 10.7 L (12.0-16.0) g/dl Hct 31.9 L (34.1-44.9) % Plt Count 249 (130-400) K/uL BMP 10/29/22 07:22 Sodium 139 Potassium 3.9 Chloride 104 Carbon Dioxide 30 BUN 16 Creatinine 1.04 Glucose 99 Calcium 9.1 PG Care Time/CCT Total # of Minutes Spent Total Time Spent with Patient: Total time spent is greater than 50% in coordination of care (as documented) at patient's floor/unit and/or counseling patient: Coding Level of Care Code 26627 SUB INP/OBS CARE 2/35MIN Diagnoses Multifocal pneumonia J18.9 Elevated troponin I level R77.8 Paroxysmal atrial fibrillation with rapid ventricular response I48.0 DM w/o complication type II, uncontrolled E11.65 Glycemic state: with hyperglycemia HTN (hypertension) I10 Hypertension type: essential hypertension Chronic kidney disease, stage III (moderate) N18.32 Chronic kidney disease stage 3 subtype: stage 3b (GFR 30-44) Asthma J45.909 Depression F32.A GERD (gastroesophageal reflux disease) K21.9 Dementia F03.90 (1) DM 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 (2) HTN (hypertension) Hypertension type: essential hypertension Qualified Code(s): I10 - Essential (primary) hypertension (3) Chronic kidney disease, stage III (moderate) Chronic kidney disease stage 3 subtype: stage 3b (GFR 30-44) Qualified Code(s): N18.32 - Chronic kidney disease, stage 3b
[2022-10-30] MEDS: AMPICILLIN/SULBACTAM SOD 3,000 MG in 0.9 % SODIUM CHLORIDE 100 ML IV SCH ×4 (02:08→20:34)
[2022-10-30 06:11] LABS: Basophils # (auto) 0.03 K/uL (0-0.2); Basophils % (auto) 0.3 %; Eosinophils # (auto) 0.13 K/uL (0-0.50); Eosinophils % (auto) 1.2 %; Hematocrit (blood only) 33.3 % (34.1-44.9); Immature Granulocytes # (auto) 0.03 K/uL (0.00-0.02); Immature Granulocytes % (auto) 0.3 %; Lymphocytes # (auto) 2.26 K/uL (1.2-3.4); Mean Corpuscular Hemoglobin 29.6 pg (25.0-34.0); Mean Corpuscular Volume 89.8 fL (80.0-100.0); Mean Platelet Volume 9.2 fL (9.4-12.3); Monocytes # (auto) 0.87 K/uL (0.24-0.82); Monocytes % (auto) 8.1 %; Neutrophils # (auto) 7.43 K/uL (1.4-6.5); Neutrophils % (auto) 69.1 %; Platelet Count 278 K/uL (130-400); RDW Coefficient of Variation 14.4 % (11.5-14.5); RDW Standard Deviation 47.3 fL (36.4-46.3); Red Blood Count 3.71 M/uL (3.93-5.22); White Blood Count 10.75 K/ul (4.8-10.8)
[2022-10-30 06:32] LABS: BUN Creatinine Ratio 12.8 (10-20); Calcium 8.8 mg/dl (8.5-10.1); Creatinine Clr Calc Pharmacy 31.4 ml/min; Est GFR (African American) 52.1 ml/min; Potassium 3.4 mmol/L (3.5-5.1)
[2022-10-30] MEDS: DOCUSATE SODIUM 100 MG CAP PO SCH (08:00)
[2022-10-30] MEDS: OMEGA-3 (PURIFIED FISH OIL) 1 GM CAP PO SCH ×2 (08:00→20:36)
[2022-10-30] MEDS: FLUTICASONE/VILANTEROL 200/25MCG 14 PUFFS/INHALER INH SCH (08:00)
[2022-10-30] MEDS: ISOSORBIDE MONO EXTENDED REL 30 MG TABCR PO SCH (08:00)
[2022-10-30] MEDS: FLUoxetine HCL 20 MG CAP PO SCH ×2 (08:00→20:36)
[2022-10-30] MEDS: LOSARTAN POTASSIUM 50 MG TAB PO SCH (08:00)
[2022-10-30] MEDS: ASPIRIN 81 MG ECTAB PO SCH (08:01)
[2022-10-30] MEDS: CALCIUM 600MG + VIT D 400 IU TAB PO SCH (08:01)
[2022-10-30] MEDS: MULTIVITAMIN TAB PO SCH (08:01)
[2022-10-30] MEDS: METOPROLOL SUCC 50MG EXT REL TAB PO SCH (08:01)
[2022-10-30] MEDS: APIXABAN 5 MG TABLET PO SCH ×2 (08:01→20:36)
[2022-10-30] MEDS: dilTIAZem HCL 180 MG CAPCR PO SCH (08:01)
[2022-10-30] MEDS: UMECLIDINIUM BROMIDE 62.5MCG/BLISTER 7 PUFFS/INHALER INH SCH (08:02)
[2022-10-30] MEDS: PANTOprazole 40 MG TAB PO SCH (08:02)
[2022-10-30] MEDS: PSYLLIUM or GUAR GUM FIBER POWDER PACKET PO SCH (08:03)
[2022-10-30] MEDS: INSULIN ASPART PER UNIT SC SCH ×4 (08:28→20:35)
--- NOTE | 2022-10-30 18:34 | Hospitalist Progress Note ---
Date of Service October 30, 2022 Assessment & Plan (1) Multifocal pneumonia: Plan: - Patient's main complaint is fevers, cough, congestion for the past several days at her personal [facility] with hypoxia in the 80s. She does have asthma, typically on room air and uses inhalers as prescribed. - WBC was 17, procalcitonin 0.21, CXR without evidence of pneumonia, however CT A/P with evidence of multifocal pneumonia. - Was given cefepime and vancomycin in the ED. Given suspicion for aspiration, will cover with Unasyn, add on MRSA nares if negative will discontinue vancomycin. - Aspiration precautions, speech consulted to evaluate while admitted. - Supportive care for fevers, pain, cough, shortness of breath. 10/29 -mental status improving White count improving on IV antibiotic therapy with Unasyn 10/30-patient continuing IV Unasyn and is improving Respiratory status improving with continuation of antibiotics (2) HTN (hypertension): Plan: - Continue metoprolol, losartan, isosorbide nitrate. 10/30-blood pressure trend is fluctuating and systolic blood pressure in the 160s to 190s in a.m. noted We will continue to trend blood pressure and of systolic pressure is over 180 again in the a.m. consider adding long-acting drug such as Norvasc 5 mg daily to metoprolol and losartan (3) Elevated troponin I level: Plan: - Troponin minimally elevated at 26.1, in setting of hypoxia suspect this is demand. - Does not have any chest pain, palpitations, shortness of breath the patient is demented at baseline unable to provide meaningful history. - EKG with chronic LBB B, atrial paced rhythm, no ST segment or T wave inversions. - We will trend troponin, she was recently admitted 2 months ago and had a full echo at that time, therefore if troponin stays minimally elevated, will defer on echo this admission. - Echo 09/13: Left ventricular size normal, normal LV wall thickness, basal septal thickening septum, left ventricular systolic function normal, EF 55 to 60%, RVSP elevated at 30-40 mmHg, grade 1 diastolic dysfunction. (4) Paroxysmal atrial fibrillation with rapid ventricular response: Plan: - S/p dual-chamber pacemaker placement in 2018 - Continue metoprolol, diltiazem. - Continue Eliquis. (5) DM w/o complication type II, uncontrolled: Plan: - Continue home regimen: Lantus 10 units HS with SSI. (previously on 18 units of Lantus, was hypoglycemic on last admission, this was decreased to 8 units at night during last admission. Per facility paperwork, taking 10 units of Lantus now.) - DM diet. - A1c in February was 6.5%, historically has been under 7% for the past 3 years, appropriate given her age. (6) Chronic kidney disease, stage III (moderate): Plan: - Creatinine is at her baseline, continue to monitor. - Renally dose medications as able, avoid nephrotoxins. (7) Asthma: Plan: - Patient with reports of cough, shortness of breath, fever but on room air. - CXR without evidence of acute disease process, negative for COVID/flu/RSV. - Continue home inhalers for now. DuoNeb added on scheduled/prn. (8) Depression: Plan: - Continue fluoxetine. (9) GERD (gastroesophageal reflux disease): Plan: - Continue Pepcid. Change omeprazole to Protonix per hospital formulary. (10) Dementia: Plan: - 10/30 Patient has baseline dementia, worse with illnesses, but is typically able to care for herself in assisted living. -Discussed with patient's daughter about patient's underlying dementia and its progressive worsening Discussed plans regarding obtaining complete dementia evaluation upon discharge on Plan - Admit to medicine with telemetry. - SCDs, Eliquis to be continued for DVT PPx. - DNR/DNI. Admission and Anticipated Discharge Date Admission Date: October 27, 2022 Subjective Alert and oriented. No new problems. Patient seen in the room with the daughter who expresses concerns with patient's underlying dementia Mental status slightly improved today She is now on room air. Review of Systems Review of Systems: All systems reviewed & are unremarkable except as noted in HPI & below Constitutional-no fever or chills ENT-no blurred vision, no double vision, no epistaxis, no sore throat Respiratory-nonproductive cough. Some shortness of breath noted with exertion. Cardiac-no palpitations, no chest pain, no syncope GI-no nausea, vomiting, diarrhea, melena, hematochezia -no urinary retention, no urinary incontinence, no dysuria, no hematuria Musculoskeletal-no joint pain, n Physical Exam Physical Exam: Constitutional: no acute distress, pleasant. Vitals as above. HEENT: No scleral injection or discharge. . Clear oropharynx without exudate. Neck: Supple without lymphadenopathy or thyromegaly. Trachea midline. Lungs: Bilateral air entry slightly diminished at bases no active wheezing Cardiac: Normal rhythm. No murmurs.No extremity edema. Abdomen:Bowel sounds present. Soft and nondistended. . No guarding or rebound tenderness. MSK: No cyanosis or clubbing. Skin: No rashes, warm, dry. Neurologic: Grossly intact cranial nerves. Results & Data Results & Data ([facility]) Vital Signs (Past 12 Hours) Vital Signs Temp Pulse Pulse Resp BP Pulse Ox O2 Del Method 10/30/22 14:08 64 10/30/22 15:19 36.7 C 65 19 179/82 H 93 Room Air 10/30/22 07:00 62 10/30/22 10:38 66 20 194/71 H 95 Room Air 10/30/22 09:18 61 20 209/79 H 96 Room Air 10/30/22 07:21 Room Air Laboratory Results Short CBC 10/30/22 Range/Units 05:24 WBC 10.75 (4.8-10.8) K/ul Hgb 11.0 L (12.0-16.0) g/dl Hct 33.3 L (34.1-44.9) % Plt Count 278 (130-400) K/uL BMP 10/30/22 05:24 Sodium 140 Potassium 3.4 L Chloride 104 Carbon Dioxide 29 BUN 14 Creatinine 1.09 Glucose 76 Calcium 8.8 PG Care Time/CCT Total # of Minutes Spent Total Time Spent with Patient: Total time spent is greater than 50% in coordination of care (as documented) at patient's floor/unit and/or counseling patient: Coding Level of Care Code 51939 SUB INP/OBS CARE 2/35MIN Diagnoses Multifocal pneumonia J18.9 HTN (hypertension) I10 Hypertension type: essential hypertension Elevated troponin I level R77.8 Paroxysmal atrial fibrillation with rapid ventricular response I48.0 DM w/o complication type II, uncontrolled E11.65 Glycemic state: with hyperglycemia Chronic kidney disease, stage III (moderate) N18.32 Chronic kidney disease stage 3 subtype: stage 3b (GFR 30-44) Asthma J45.909 Depression F32.A GERD (gastroesophageal reflux disease) K21.9 Dementia F03.90 (1) DM 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 (2) HTN (hypertension) Hypertension type: essential hypertension Qualified Code(s): I10 - Essential (primary) hypertension (3) Chronic kidney disease, stage III (moderate) Chronic kidney disease stage 3 subtype: stage 3b (GFR 30-44) Qualified Code(s): N18.32 - Chronic kidney disease, stage 3b
[2022-10-30] MEDS ORDERED: METOPROLOL TARTRATE 50 MG TAB PO STA (20:16)
[2022-10-30] MEDS ORDERED: LORazepam 0.5 MG TAB PO STA (20:16)
[2022-10-30] MEDS: LANTUS PER UNIT CHARGE SQ SCH (20:34)
[2022-10-31] MEDS: AMPICILLIN/SULBACTAM SOD 3,000 MG in 0.9 % SODIUM CHLORIDE 100 ML IV SCH ×4 (02:16→20:11)
[2022-10-31] MEDS ORDERED: hydrALAZINE HCL 20 MG/ML VIAL IV ONE (02:29)
[2022-10-31] MEDS: OMEGA-3 (PURIFIED FISH OIL) 1 GM CAP PO SCH ×2 (08:03→20:11)
[2022-10-31] MEDS: APIXABAN 5 MG TABLET PO SCH ×2 (08:03→20:11)
[2022-10-31] MEDS: METOPROLOL SUCC 50MG EXT REL TAB PO SCH (08:03)
[2022-10-31] MEDS: FLUoxetine HCL 20 MG CAP PO SCH ×2 (08:03→20:12)
[2022-10-31] MEDS: LOSARTAN POTASSIUM 50 MG TAB PO SCH (08:04)
[2022-10-31] MEDS: PANTOprazole 40 MG TAB PO SCH (08:04)
[2022-10-31] MEDS: CALCIUM 600MG + VIT D 400 IU TAB PO SCH (08:04)
[2022-10-31] MEDS: ASPIRIN 81 MG ECTAB PO SCH (08:04)
[2022-10-31] MEDS: DOCUSATE SODIUM 100 MG CAP PO SCH (08:05)
[2022-10-31] MEDS: dilTIAZem HCL 180 MG CAPCR PO SCH (08:05)
[2022-10-31] MEDS: ISOSORBIDE MONO EXTENDED REL 30 MG TABCR PO SCH (08:05)
[2022-10-31] MEDS: MULTIVITAMIN TAB PO SCH (08:05)
[2022-10-31] MEDS: PSYLLIUM or GUAR GUM FIBER POWDER PACKET PO SCH (08:06)
[2022-10-31] MEDS: UMECLIDINIUM BROMIDE 62.5MCG/BLISTER 7 PUFFS/INHALER INH SCH (08:06)
[2022-10-31] MEDS: FLUTICASONE/VILANTEROL 200/25MCG 14 PUFFS/INHALER INH SCH (08:06)
[2022-10-31] MEDS: INSULIN ASPART PER UNIT SC SCH ×4 (08:18→20:11)
[2022-10-31 08:26] LABS: Basophils # (auto) 0.07 K/uL (0-0.2); Basophils % (auto) 0.9 %; Eosinophils # (auto) 0.25 K/uL (0-0.50); Eosinophils % (auto) 3.1 %; Hematocrit (blood only) 39.6 % (34.1-44.9); Hemoglobin 13.5 g/dl (12.0-16.0); Immature Granulocytes # (auto) 0.03 K/uL (0.00-0.02); Immature Granulocytes % (auto) 0.4 %; Lymphocytes # (auto) 1.51 K/uL (1.2-3.4); Lymphocytes % (auto) 18.5 %; Mean Corpuscular Hemoglobin 30.1 pg (25.0-34.0); Mean Corpuscular Hgb Conc 34.1 g/dL (32.0-36.0); Mean Corpuscular Volume 88.4 fL (80.0-100.0); Mean Platelet Volume 9.1 fL (9.4-12.3); Monocytes # (auto) 0.75 K/uL (0.24-0.82); Monocytes % (auto) 9.2 %; Neutrophils # (auto) 5.55 K/uL (1.4-6.5); Neutrophils % (auto) 67.9 %; Platelet Count 304 K/uL (130-400); RDW Standard Deviation 45.3 fL (36.4-46.3); Red Blood Count 4.48 M/uL (3.93-5.22); White Blood Count 8.16 K/ul (4.8-10.8)
[2022-10-31 08:50] LABS: BUN Creatinine Ratio 12.6 (10-20); Calcium 9.6 mg/dl (8.5-10.1); Creatinine Clr Calc Pharmacy 36.2 ml/min; Est GFR (African American) 61.5 ml/min; Est GFR (Non-African American) 53.1 ml/min; Potassium 3.5 mmol/L (3.5-5.1)
[2022-10-31] MEDS ORDERED: amLODIPine BESYLATE 5 MG TAB PO ONE (11:57)
--- NOTE | 2022-10-31 12:31 | Hospitalist Progress Note ---
Date of Service October 31, 2022 Assessment & Plan (1) Multifocal pneumonia: Plan: -A resident of [facility] -Admitted to the hospital on account of hypoxia, fever and cough -Found to have lobar PNA on chest CT -On admission, WBC was elevated -Started on broad spectrum Vanc and Cefepime, but now on Unasyn -She is clinically much improved, saturating well on room air, afebrile -Cultures have been negative -Hopefully d/c in 24 hrs on PO antibiotics (2) HTN (hypertension): Plan: - Continue metoprolol, losartan, isosorbide nitrate. -BP under fair control, add Amlodipine PO 5mg daily (3) Elevated troponin I level: Plan: - Troponin minimally elevated at 26.1, in setting of hypoxia suspect this is demand. - Does not have any chest pain, palpitations, shortness of breath the patient is demented at baseline unable to provide meaningful history. - EKG with chronic LBB B, atrial paced rhythm, no ST segment or T wave inversions. - We will trend troponin, she was recently admitted 2 months ago and had a full echo at that time, therefore if troponin stays minimally elevated, will defer on echo this admission. - Echo 09/13: Left ventricular size normal, normal LV wall thickness, basal septal thickening septum, left ventricular systolic function normal, EF 55 to 60%, RVSP elevated at 30-40 mmHg, grade 1 diastolic dysfunction. (4) Paroxysmal atrial fibrillation with rapid ventricular response: Plan: - S/p dual-chamber pacemaker placement in 2018 - Continue metoprolol, diltiazem. - Continue Eliquis. (5) DM w/o complication type II, uncontrolled: Plan: - Continue home regimen: Lantus 10 units HS with SSI. (previously on 18 units of Lantus, was hypoglycemic on last admission, this was decreased to 8 units at night during last admission. Per facility paperwork, taking 10 units of Lantus now.) - DM diet. - A1c in February was 6.5%, historically has been under 7% for the past 3 years, appropriate given her age. (6) Chronic kidney disease, stage III (moderate): Plan: - Creatinine is at her baseline, continue to monitor. - Renally dose medications as able, avoid nephrotoxins. (7) Asthma: Plan: - Patient with reports of cough, shortness of breath, fever but on room air. - CXR without evidence of acute disease process, negative for COVID/flu/RSV. - Continue home inhalers for now. DuoNeb added on scheduled/prn. (8) Depression: Plan: - Continue fluoxetine. (9) GERD (gastroesophageal reflux disease): Plan: - Continue Pepcid. Change omeprazole to Protonix per hospital formulary. (10) Dementia: Plan: - Patient has baseline dementia, worse with illnesses, but is typically able to care for herself in assisted living. -Discussed with patient's daughter about patient's underlying dementia and its progressive worsening -Outpatient follow up with PCP Plan -Hopefully d/c in the next 24 hrs - SCDs, Eliquis to be continued for DVT PPx. - DNR/DNI. Admission and Anticipated Discharge Date Admission Date: October 27, 2022 Subjective patient seen and examined, feels over all better, Review of Systems Review of Systems: All systems reviewed are negative, apart from the ones contained in the history. Physical Exam Physical Exam: The patient is awake, alert and oriented 3, well developed and well nourished, normocephalic and atraumatic, lying in bed and in no acute distress. HEENT--PERRL, EOMI, mucous membranes and oropharynx mildly dry Neck--supple. No JVD. No bruits. Thyroid normal, trachea midline, no adenopathy. Heart--normal S1 and S2. No murmurs, rubs or gallops. Lungs--clear bilaterally, no respiratory distress, no accessory muscle use. Abdomen--normal bowel sounds and soft. Mild epigastric and left sided abdominal pain Extremities--no cyanosis or clubbing. No edema. Dermatologic--normal skin turgor, normal color, no abnormal lymph nodes, no rash. Neurologic--cranial nerves II through XII grossly intact. Rheumatologic--normal range of motion. Psychiatric--normal affect. Results & Data Results & Data ([facility]) Vital Signs (Past 12 Hours) Vital Signs Temp Pulse Resp BP Pulse Ox O2 Del Method 10/31/22 11:16 98.2 F 62 18 155/79 H 93 Room Air 10/31/22 07:52 97.9 F 67 18 218/90 H 95 Room Air 10/31/22 02:16 97.7 F 74 18 197/92 H 95 Room Air PG Care Time/CCT Total # of Minutes Spent Total Time Spent with Patient: Total time spent is greater than 50% in coordination of care (as documented) at patient's floor/unit and/or counseling patient: Coding Level of Care Code 73796 SUB INP/OBS CARE 2/35MIN Diagnoses Multifocal pneumonia J18.9 HTN (hypertension) I10 Hypertension type: essential hypertension Elevated troponin I level R77.8 Paroxysmal atrial fibrillation with rapid ventricular response I48.0 DM w/o complication type II, uncontrolled E11.65 Glycemic state: with hyperglycemia Chronic kidney disease, stage III (moderate) N18.32 Chronic kidney disease stage 3 subtype: stage 3b (GFR 30-44) Asthma J45.909 Depression F32.A GERD (gastroesophageal reflux disease) K21.9 Dementia F03.90 Time Spent (min) 35 (1) HTN (hypertension) Hypertension type: essential hypertension Qualified Code(s): I10 - Essential (primary) hypertension (2) DM 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 (3) Chronic kidney disease, stage III (moderate) Chronic kidney disease stage 3 subtype: stage 3b (GFR 30-44) Qualified Code(s): N18.32 - Chronic kidney disease, stage 3b
[2022-10-31] MEDS: LANTUS PER UNIT CHARGE SQ SCH (20:10)
[2022-11-01] MEDS: AMPICILLIN/SULBACTAM SOD 3,000 MG in 0.9 % SODIUM CHLORIDE 100 ML IV SCH ×3 (02:48→13:32)
[2022-11-01 07:27] LABS: Hematocrit (blood only) 38.7 % (34.1-44.9); Hemoglobin 12.9 g/dl (12.0-16.0); Mean Corpuscular Hemoglobin 30.2 pg (25.0-34.0); Mean Corpuscular Hgb Conc 33.3 g/dL (32.0-36.0); Mean Corpuscular Volume 90.6 fL (80.0-100.0); Mean Platelet Volume 9.1 fL (9.4-12.3); Platelet Count 294 K/uL (130-400); RDW Coefficient of Variation 14.3 % (11.5-14.5); RDW Standard Deviation 47.4 fL (36.4-46.3); Red Blood Count 4.27 M/uL (3.93-5.22); White Blood Count 8.82 K/ul (4.8-10.8)
[2022-11-01 07:59] LABS: BUN Creatinine Ratio 16.1 (10-20); Calcium 9.4 mg/dl (8.5-10.1); Creatinine Clr Calc Pharmacy 28.2 ml/min; Est GFR (African American) 50.4 ml/min; Est GFR (Non-African American) 43.5 ml/min; Potassium 3.6 mmol/L (3.5-5.1)
[2022-11-01] MEDS: INSULIN ASPART PER UNIT SC SCH ×2 (08:26→12:27)
[2022-11-01] MEDS: DOCUSATE SODIUM 100 MG CAP PO SCH (08:27)
[2022-11-01] MEDS: OMEGA-3 (PURIFIED FISH OIL) 1 GM CAP PO SCH (08:28)
[2022-11-01] MEDS: ISOSORBIDE MONO EXTENDED REL 30 MG TABCR PO SCH (08:28)
[2022-11-01] MEDS: APIXABAN 5 MG TABLET PO SCH (08:28)
[2022-11-01] MEDS: FLUoxetine HCL 20 MG CAP PO SCH (08:28)
[2022-11-01] MEDS: UMECLIDINIUM BROMIDE 62.5MCG/BLISTER 7 PUFFS/INHALER INH SCH (08:29)
[2022-11-01] MEDS: FLUTICASONE/VILANTEROL 200/25MCG 14 PUFFS/INHALER INH SCH (08:29)
[2022-11-01] MEDS: ASPIRIN 81 MG ECTAB PO SCH (08:30)
[2022-11-01] MEDS: LOSARTAN POTASSIUM 50 MG TAB PO SCH (08:30)
[2022-11-01] MEDS: CALCIUM 600MG + VIT D 400 IU TAB PO SCH (08:30)
[2022-11-01] MEDS: MULTIVITAMIN TAB PO SCH (08:31)
[2022-11-01] MEDS: METOPROLOL SUCC 50MG EXT REL TAB PO SCH (08:31)
[2022-11-01] MEDS: PANTOprazole 40 MG TAB PO SCH (08:31)
[2022-11-01] MEDS: PSYLLIUM or GUAR GUM FIBER POWDER PACKET PO SCH (08:31)
[2022-11-01] MEDS: dilTIAZem HCL 180 MG CAPCR PO SCH (08:32)
[2022-11-01] MEDS ORDERED: amLODIPine BESYLATE 5 MG TAB PO SCH (09:00)
--- NOTE | 2022-11-01 10:54 | Discharge Summary ---
Date of Service November 01, 2022 Admission HPI Per Admitting Provider Angy Mcguire is an 87-year-old female with a past medical history significant for atrial fibrillation, pacemaker, hypertension, hyperlipidemia, DM2, CKD, COPD, depression, and dementia who is presenting today from [facility]. Over the past couple days she has had low-grade fevers, cough, and congestion and found to be hypoxic on several occasion and 80s on room air. Patient is confused at visit, she voices no specific complaints. Son at bedside notes her confusion is worse than baseline, as her dementia usually is worse with illness. He also has concerns for aspiration, notes that while she does not have a very good appetite when she does eat he is concerned that she is choking on her food. On presentation, she is hypertensive 175/110, 89% on room air, afebrile, without tachycardia or tachypnea. Labs notable for a white count of 17, procalcitonin 0.21. HS troponin mildly elevated at 26. Sodium slightly low at 132, otherwise without any electrolyte abnormalities, her renal function is at baseline. Hepatic function WNL, stable. Anemia is chronic, stable. UA contaminated with epithelial cells, has 1030 WBCs and trace leukocyte esterase, does not appear overwhelmingly infected. COVID/flu/RSV negative. CXR shows no acute process. CT A/P Principal Diagnosis pneumonia Discharge Exam The patient is awake, alert and oriented 3, well developed and well nourished, normocephalic and atraumatic, lying in bed and in no acute distress. HEENT--PERRL, EOMI, mucous membranes and oropharynx mildly dry Neck--supple. No JVD. No bruits. Thyroid normal, trachea midline, no adenopathy. Heart--normal S1 and S2. No murmurs, rubs or gallops. Lungs--clear bilaterally, no respiratory distress, no accessory muscle use. Abdomen--normal bowel sounds and soft. Mild epigastric and left sided abdominal pain Extremities--no cyanosis or clubbing. No edema. Dermatologic--normal skin turgor, normal color, no abnormal lymph nodes, no rash. Neurologic--cranial nerves II through XII grossly intact. Rheumatologic--normal range of motion. Psychiatric--normal affect. Discharge Data Allergies Allergy/AdvReac Type Severity Reaction Status Date / Time No Known Allergies Allergy Verified 01/05/23 19:19 Consultations 10/27/22 19:32 ED Decision to Admit Stat Ordered Studies 10/27/22 19:22 CT abd pelvis IV con only Stat Hospital Course (1) Multifocal pneumonia: -A resident of [facility] -Admitted to the hospital on account of hypoxia, fever and cough -Found to have lobar PNA on chest CT -On admission, WBC was elevated -Started on broad spectrum Vanc and Cefepime, but now on Unasyn -She is clinically much improved, saturating well on room air, afebrile -Cultures have been negative -d/c on PO Cephalexin for 5 more days (2) HTN (hypertension): - Continue metoprolol, losartan, isosorbide nitrate. -BP under fair control, add Amlodipine PO 5mg daily (3) Elevated troponin I level: - Troponin minimally elevated at 26.1, in setting of hypoxia suspect this is demand. - Does not have any chest pain, palpitations, shortness of breath the patient is demented at baseline unable to provide meaningful history. - EKG with chronic LBB B, atrial paced rhythm, no ST segment or T wave inversi ons. - We will trend troponin, she was recently admitted 2 months ago and had a full echo at that time, therefore if troponin stays minimally elevated, will defer on echo this admission. - Echo 09/13: Left ventricular size normal, normal LV wall thickness, basal septal thickening septum, left ventricular systolic function normal, EF 55 to 60%, RVSP elevated at 30-40 mmHg, grade 1 diastolic dysfunction. (4) Paroxysmal atrial fibrillation with rapid ventricular response: - S/p dual-chamber pacemaker placement in 2018 - Continue metoprolol, diltiazem. - Continue Eliquis. (5) DM w/o complication type II, uncontrolled: - Continue home regimen: Lantus 10 units HS with SSI. (previously on 18 units of Lantus, was hypoglycemic on last admission, this was decreased to 8 units at night during last admission. Per facility paperwork, taking 10 units of Lantus now.) - DM diet. - A1c in February was 6.5%, historically has been under 7% for the past 3 years, appropriate given her age. (6) Chronic kidney disease, stage III (moderate): - Creatinine is at her baseline, continue to monitor. - Renally dose medications as able, avoid nephrotoxins. (7) Asthma: - Patient with reports of cough, shortness of breath, fever but on room air. - CXR without evidence of acute disease process, negative for COVID/flu/RSV. - Continue home inhalers for now. DuoNeb added on scheduled/prn. (8) Depression: - Continue fluoxetine. (9) GERD (gastroesophageal reflux disease): - Continue Pepcid. Change omeprazole to Protonix per hospital formulary. (10) Dementia: - Patient has baseline dementia, worse with illnesses, but is typically able to care for herself in assisted living. -Discussed with patient's daughter about patient's underlying dementia and its progressive worsening -Outpatient follow up with PCP Plan -d/c - SCDs, Eliquis to be continued for DVT PPx. - DNR/DNI. Total Time Total Time Spent Total Time Spent (In Minutes): 35 Discharge Plan Discharge Items Patient Disposition: [facility] Reason For Visit: FEVER/URI SYMPTOMS Discharge Diagnosis: Pneumonia Activity: Resume your previous activity Non-emergency contact: Primary Care Provider Call non-emergency contact if: you have any medication questions Follow-up/Referrals: Edil Kaur DO [Primary Care Provider] - Diet: Regular Addtl Attending Provider Instructions: please make appointment to follow up with your PCP Pending Studies at Discharge: No Stand-Alone Forms: My [employer], Smoking Cessation Skilled Items Patient informed of condition?: Yes DNR: Yes Discharge Level of Care: Other Communicable Disease: No Discharge Prognosis: Stable Lines: None Urinary Catheter: No Medications and DC Order Prescriptions: New cephalexin 500 mg capsule 500 mg PO BID 5 Days Qty: 10 0RF Continued Incruse Ellipta 62.5 mcg/actuation blister with device 1 inh inhalation QAM isosorbide mononitrate 30 mg tablet extended release 24 hr 30 mg PO DAILY famotidine [Pepcid] 20 mg tablet 20 mg PO DAILY PRN (Reason: gastric reflux) multivitamin Tablet 1 tab PO QAM metoprolol succinate 100 mg tablet extended release 24 hr 100 mg PO QAM aspirin 81 mg Tablet,Delayed Release (Dr/Ec) 81 mg PO QAM fluoxetine 20 mg capsule 20 mg PO BID calcium carbonate-vitamin D3 [Oyster Shell Calcium-Vit D3] 500 mg(1,250mg) - 200 unit Tablet 1 tab PO QAM omega 5-num-ykk-fish oil [Fish Oil] 1,000 mg (120 mg-180 mg) Capsule 1 cap PO BID losartan 100 mg tablet 100 mg PO DAILY acetaminophen [Tylenol Extra Strength] 500 mg Tablet 500 - 1,000 mg PO DAILY MDD 3 GRAMS/24 HOURS PRN (Reason: Pain) Eliquis 5 mg tablet 5 mg PO BID ipratropium-albuterol 0.5 mg-3 mg(2.5 mg base)/3 mL Solution For Nebulization 3 ml INHALATION QID PRN (Reason: Shortness Of Breath Or Wheezing) diltiazem HCl 180 mg capsule,extended release 24hr 180 mg PO DAILY Cranberry Plus Vitamin C 140-100 mg Capsule 1 cap PO BID nystatin-triamcinolone 100,000-0.1 unit/g-% Cream 1 applic TOPICAL BID PRN (Reason: FUNGAL RASH) docusate sodium 100 mg Capsule 100 mg PO DAILY docusate sodium 100 mg Capsule 100 mg PO DAILY PRN (Reason: Constipation) Coricidin HBP Cold and Flu 2-325 mg Tablet 1 tab PO DIRECTED PRN (Reason: COLD/FLU SYMPTOMS) Rx Instructions: DOSE PER PKG INSTRUCTIONS. Hemorrhoid Ointment 1 applic [place] DIRECTED PRN (Reason: Hemorrhoids) insulin glargine [Lantus Solostar U-100 Insulin] 100 unit/mL (3 mL) insulin pen 10 unit SC HS fluticasone propion-salmeterol [Wixela Inhub] 250-50 mcg/dose Blister With Device 1 inh INHALATION BID menthol-zinc oxide [Calmoseptine] 0.44-20.6 % Ointment 1 applic TOPICAL DIRECTED PRN (Reason: SKIN BREAKDOWN) Metamucil 3.4 gram/5.4 gram Powder 1 tbsp PO DAILY Rx Instructions: MIX WITH 8 OZ. FLUID omeprazole 40 mg capsule,delayed release(DR/EC) 40 mg PO QAM Discontinued amoxicillin 500 mg Capsule 2,000 mg PO DIRECTED PRN (Reason: 1 HR PRIOR TO DENTAL APPT.) Discharge Orders: Discharge Order (Routine); Ordered 11/01/22 Ordered By: Marianela Baldwin Admission Data Admit Date/Time: 10/27/22 20:16 Attending Provider: Marianela Baldwin Admit Provider: Fabrice Desai Primary Care Provider: Edil Kaur Other Providers: Fabrice Desai Coding Level of Care Code HOSP INP/OBS DISCH >30 MIN Diagnoses Multifocal pneumonia J18.9 HTN (hypertension) I10 Hypertension type: essential hypertension Elevated troponin I level R77.8 Paroxysmal atrial fibrillation with rapid ventricular response I48.0 DM w/o complication type II, uncontrolled E11.65 Glycemic state: with hyperglycemia Chronic kidney disease, stage III (moderate) N18.32 Chronic kidney disease stage 3 subtype: stage 3b (GFR 30-44) Asthma J45.909 Depression F32.A GERD (gastroesophageal reflux disease) K21.9 Dementia F03.90 Time Spent (min) 35
== END 2022-11-01 14:30 | disposition home or self-care (01) | DRG 193 ==
LOC: ED 17:23 → SUATTDRO 20:16 → 2N 20:16

== ENCOUNTER 2022-11-24 09:29 | Inpatient (IN) ==
--- NOTE | 2022-11-24 09:42 | Emergency Department Note ---
Impression & Plan Transient confusion, Hypertension, Ambulatory dysfunction ED Provider Note Provider: Polo Quintanilla MD DATE OF SERVICE: 11/24/2022 CHIEF COMPLAINT: Transient confusion, congestion, possible UTI HISTORY OF PRESENT ILLNESS: Patient is a 87-year-old female history of atrial fibrillation on Eliquis, pacemaker, hypertension, type 2 diabetes, CKD, and reportedly COPD presenting here via ambulance from [facility] where she resides. Patient was hospitalized the beginning of October for pneumonia. Evidently for the past week according to EMS patient has had some congestion with minimal cough. Evidently was found this morning standing in the bathroom confused at the sink. There is no trauma reported. Patient evidently had a saturated bed and gets frequent UTIs so there was some concern reported by EMS for this. Patient's blood sugar was not noted to be low prior to arrival. Patient here denies significant complaints. She denies any significant pain or nausea or vomiting. Denies fever. PAST MEDICAL HISTORY: As noted above MEDICATIONS: Reviewed medication list from the facility SOCIAL HISTORY: Denies smoking, lives at [facility] PHYSICAL EXAM: GENERAL: alert and oriented in no acute distress on stretcher, pleasant Head: normocephalic and atraumatic EYES: No injection, discharge or icterus. PERRL, EOMI. NECK: Trachea midline. Supple. ENT: Mucous membranes pink and moist. LUNGS: Airway patent. No retractions. Breath sounds clear HEART: Regular rate and rhythm. No chest wall tenderness ABDOMEN: Soft and non-tender, without guarding or rebound. SKIN: Acyanotic, warm, dry, without rashes EXTREMITIES: Without swelling, tenderness or deformity NEUROLOGICAL: No focal deficits. No aphasia. No facial droop or slurred speech. Sensation intact in extremities. Moves all extremities. Significant difficulty with ambulation with assistance and walker. EK bpm atrially paced rhythm without PVC. No acute significant ST segment elevation with a left bundle branch block and a QTC of 420. Compared to previous from October 27 of this year, significant artifact on previous EKG but similar gross morphology with less amplitude today. CONTINUOUS CARDIAC MONITORING: was ordered and showed a heart rate of 60s-70s bpm in atrially paced rhythm with a left bundle branch block Patient's laboratory studies and imaging reviewed. Differential includes Infection, dehydration, metabolic abnormality, hypo/hyperglycemia, electrolyte disturbance, anemia, hypoxia, cardiac sources, intracerebral event, toxicologic, neurologic, as well as other pathologies. IMPRESSION/MEDICAL DECISION MAKING: Patient with history of A. fib on Eliquis and recent admission for pneumonia presenting here with some congestion for part of the week according to EMS with some transient confusion this morning and possible UTI concern. Patient denies significant pain complaint upon arrival. Not significantly hypoxic. Did we complete a chest x-ray given her recent illness and may be a slight right lung area could represent still remaining bony but much improved compared to previous. Blood work sent without evidence of significant leukocytosis. And with very minimal anemia. No trauma history is reported. No significant abdominal or chest tenderness on exam. No significant leg swelling appreciated. Did send a urinalysis to help exclude occult UTI. Patient seems alert and oriented at this time knowing the president or location and her birthday. Patient denies nausea or diarrhea symptoms. No evidence of acute hepatitis base d on labs. Normal procalcitonin and TSH. Troponin minimally elevated but less so than before. Normal renal function and electrolytes. Urinalysis without evidence of infection. Patient is noted to be somewhat hypertensive here. CT of the head per radiology without significant acute pathology or bleeding noted. Negative COVID and flu RSV testing. Patient tolerating oral intake here without significant abnormalities and family at bedside agree. Unsure what the transient episode was this morning. Discussed options of possibly returning to [facility]. Did attempt ambulation and this did not go well. Given the personal skill level of the facility, do not feel she is safe to go home on her blood thinner there. Discussed staying for rehab services with her ambulatory dysfunction. DIAGNOSIS: Transient confusion, ambulatory dysfunction, hypertension DISPOSITION: Discharge Patient was agreeable with this plan. Discussed return precautions and advised follow up. Past Med/Surg History Medical History Asthma Dependence on supplemental oxygen Essential (primary) hypertension Former smoker Frozen shoulder Hyperlipidemia Pacemaker PAT (paroxysmal atrial tachycardia) Sinus node dysfunction Symptomatic bradycardia Syncope Surgical History H/O bilateral cataract extraction History of left hip replacement History of right hip replacement History of total abdominal hysterectomy and bilateral salpingo-oophorectomy Family History Father Cancer laryngeal (smoker) Mother Ovarian cancer Social History Smoking Status: Never smoker Tobacco Type: Cigarettes Cigarettes Per Day: <1/2 ppd x 40 years; Second Hand Exposure: No; Hx Alcohol Use: No Hx Substance Use: No Preferred Language: Malian Communication Ability: Impaired Timber Spotter Required: No Beliefs That Will Affect Care: None marital status: / Current Living Situation: Family Current Living Situation Comment: [facility] current occupational status: retired 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) other: 2 daughters, 1 son Feels Safe at Home: Yes Assistive Devices: Oxygen - at Night and Walker Allergies Allergies Allergy/AdvReac Type Severity Reaction Status Date / Time No Known Allergies Allergy Verified 10/27/22 19:19 Home Meds Home Medications Medication Instructions Recorded Confirmed aspirin 81 mg tablet,delayed 81 mg PO QAM 02/02/19 11/24/22 release calcium carbonate 500 mg-vitamin 1 tab PO QAM 02/02/19 11/24/22 D3 5 mcg (200 unit) tablet (Oyster Shell Calcium-Vitamin D3) fluoxetine 20 mg capsule 20 mg PO BID 02/02/19 11/24/22 metoprolol succinate 100 mg 100 mg PO QAM 02/02/19 11/24/22 tablet,extended release 24 hr omega 4-qrz-edx-fish oil 1,000 mg 1 cap PO BID 02/02/19 11/24/22 (120 mg-180 mg) capsule (Fish Oil) losartan 100 mg tablet 100 mg PO DAILY 03/11/19 11/24/22 acetaminophen 500 mg tablet 500 - 1,000 mg PO DAILY PRN Pain 07/26/19 11/24/22 (Tylenol Extra Strength) apixaban 5 mg tablet (Eliquis) 5 mg PO BID 06/25/20 11/24/22 famotidine 20 mg tablet (Pepcid) 20 mg PO DAILY PRN gastric reflux 06/30/20 11/24/22 umeclidinium 62.5 mcg/actuation 1 inh inhalation QAM 01/05/21 11/24/22 blister powder for inhalation (Incruse Ellipta) fluticasone 250 mcg-salmeterol 50 1 inh inhalation BID 02/15/21 11/24/22 mcg/dose blistr powdr for inhalation (Wixela Inhub) menthol 0.44 %-zinc oxide 20.6 % 1 applic topical DIRECTED PRN 02/15/21 11/24/22 topical ointment (Calmoseptine) SKIN BREAKDOWN omeprazole 40 mg capsule,delayed 40 mg PO QAM 02/15/21 11/24/22 release psyllium husk 3.4 gram/5.4 gram 1 tbsp PO DAILY 02/15/21 11/24/22 oral powder (Metamucil) isosorbide mononitrate 30 mg 30 mg PO DAILY 07/25/22 11/24/22 tablet,extended release 24 hr chlorpheniramine-acetaminophen 2 1 tab PO DIRECTED PRN COLD/FLU 10/27/22 11/24/22 mg-325 mg tablet (Coricidin HBP SYMPTOMS Cold and Flu) cranberry concentrate-ascorbic 1 cap PO BID 10/27/22 11/24/22 acid 140 mg-100 mg capsule (Cranberry Plus Vitamin C) diltiazem HCl 180 mg 180 mg PO DAILY 10/27/22 11/24/22 capsule,extended release 24 hr docusate sodium 100 mg capsule 100 mg PO DAILY 10/27/22 11/24/22 docusate sodium 100 mg capsule 100 mg PO DAILY PRN Constipation 10/27/22 11/24/22 insulin glargine 100 unit/mL (3 10 unit SC HS 10/27/22 11/24/22 mL) subcutaneous pen (Lantus Solostar U-100 Insulin) ipratropium 0.5 mg-albuterol 3 mg 3 ml inhalation QID PRN Shortness 10/27/22 11/24/22 (2.5 mg base)/3 mL nebulization Of Breath Or Wheezing soln nystatin-triamcinolone 100,000 1 applic topical BID PRN FUNGAL 10/27/22 11/24/22 unit/g-0.1 % topical cream RASH phenylephrine-shark liver 1 applic MD DIRECTED PRN 10/27/22 11/24/22 oil-mineral oil-petrolatum rectal Hemorrhoids ointment (Hemorrhoid ointment) fluoxetine 10 mg capsule 10 mg PO BID 11/24/22 11/24/22 multivitamin (Daily-Hellen tablet) 1 tab PO DAILY 11/24/22 11/24/22 Results & Data (ED) Vital Signs Vital Signs - 24 hr 11/24/22 09:33 11/24/22 09:39 11/24/22 09:36 Temperature 37.1 C Temperature Source Oral Pulse Rate 66 65 Pulse Rate from SpO2 Sensor 65 Respiratory Rate 16 18 Respiratory Effort / Characteristics Non-Labored Respiratory Depth Normal Blood Pressure 203/74 H 184/94 H Blood Pressure Mean 117 124 Pulse Oximetry 95 95 95 Oxygen Delivery Method Room Air Room Air Room Air Sepsis Recent Fever Within 48 Hours No Sepsis New/Unexplained Change in Mental Status No Sepsis Action Taken by Nursing No Action Required 11/24/22 09:36 11/24/22 10:31 11/24/22 10:46 Temperature Temperature Source Pulse Rate 72 Pulse Rate from SpO2 Sensor 72 61 Respiratory Rate 19 24 Respiratory Effort / Characteristics Respiratory Depth Blood Pressure 193/138 H 200/73 H Blood Pressure Mean 156 115 Pulse Oximetry 95 96 95 Oxygen Delivery Method Room Air Room Air Room Air Sepsis Recent Fever Within 48 Hours Sepsis New/Unexplained Change in Mental Status Sepsis Action Taken by Nursing 11/24/22 11:00 11/24/22 11:10 11/24/22 11:16 Temperature Temperature Source Pulse Rate Pulse Rate from SpO2 Sensor 60 60 63 Respiratory Rate 18 19 22 Respiratory Effort / Characteristics Respiratory Depth Blood Pressure 197/74 H 203/79 H Blood Pressure Mean 115 120 Pulse Oximetry 95 94 95 Oxygen Delivery Method Room Air Room Air Room Air Sepsis Recent Fever Within 48 Hours Sepsis New/Unexplained Change in Mental Status Sepsis Action Taken by Nursing 11/24/22 11:31 11/24/22 11:46 11/24/22 12:01 Temperature Temperature Source Pulse Rate Pulse Rate from SpO2 Sensor 60 63 60 Respiratory Rate 21 17 23 Respiratory Effort / Characteristics Respiratory Depth Blood Pressure 177/85 H 195/87 H 197/90 H Blood Pressure Mean 115 123 125 Pulse Oximetry 94 96 94 Oxygen Delivery Method Room Air Room Air Room Air Sepsis Recent Fever Within 48 Hours Sepsis New/Unexplained Change in Mental Status Sepsis Action Taken by Nursing 11/24/22 13:00 11/24/22 13:16 11/24/22 13:20 Temperature Temperature Source Pulse Rate 62 60 60 Pulse Rate from SpO2 Sensor 62 60 60 Respiratory Rate 20 17 22 Respiratory Effort / Characteristics Respiratory Depth Blood Pressure 205/79 H Blood Pressure Mean 121 Pulse Oximetry 97 94 96 Oxygen Delivery Method Room Air Room Air Room Air Sepsis Recent Fever Within 48 Hours Sepsis New/Unexplained Change in Mental Status Sepsis Action Taken by Nursing 11/24/22 13:30 11/24/22 13:30 11/24/22 13:39 Temperature Temperature Source Pulse Rate 65 71 Pulse Rate from SpO2 Sensor 65 Respiratory Rate 12 24 Respiratory Effort / Characteristics Respiratory Depth Blood Pressure 212/119 H 208/87 H Blood Pressure Mean 150 127 Pulse Oximetry 97 98 Oxygen Delivery Method Room Air Room Air Sepsis Recent Fever Within 48 Hours Sepsis New/Unexplained Change in Mental Status Sepsis Action Taken by Nursing Laboratory Data 11/24/22 09:47 11/24/22 09:47 Lab Results 11/24/22 11/24/22 11/24/22 Range/Units 09:39 09:47 09:47 WBC 5.37 (4.8-10.8) K/ul RBC 3.91 L (4.20-5.40) M/uL Hgb 11.8 L (12.0-16.0) g/dl Hct 35.7 L (37.0-47.0) % MCV 91.3 (80.0-100.0) fL MCH 30.2 (25.0-34.0) pg MCHC 33.1 (32.0-36.0) g/dL RDW Std Deviation 47.5 H (36.4-46.3) fL RDW Coeff of Namrata 14.2 (11.5-14.5) % Plt Count 233 (130-400) K/uL MPV 9.4 (9.4-12.4) fL Immature Gran % (Auto) 0.0 % Neut % (Auto) 57.4 % Lymph % (Auto) 22.5 % Rock % (Auto) 11.0 % Eos % (Auto) 8.0 % Baso % (Auto) 1.1 % Neut # (Auto) 3.08 (1.40-6.50) K/uL Lymph # (Auto) 1.21 (1.2-3.4) K/uL Rock # (Auto) 0.59 (0.11-0.59) K/uL Eos # (Auto) 0.43 (0-0.50) K/uL Baso # (Auto) 0.06 (0-0.2) K/uL Immature Gran # (Auto) 0.00 L (0.01-0.20) K/uL Sodium 140 (136-145) mmol/L Potassium 4.0 (3.5-5.1) mmol/L Chloride 105 (98-107) mmol/L Carbon Dioxide 30 (21-32) mmol/L Anion Gap 5 (3-11) BUN 11 (6-23) mg/dl Creatinine 1.06 (0.6-1.2) mg/dl Est Cr Clr Drug Dosing Not Reportable Est GFR ( Amer) 53.9 ml/min Est GFR (Non-Af Amer) 46.5 ml/min BUN/Creatinine Ratio 10.4 (10-20) Glucose 129 H (70-99(Fasting)) mg/dl Lactate (0.4-2.0) mmol/L Calcium 9.7 (8.5-10.1) mg/dl Magnesium 1.9 (1.7-2.4) mg/dl Total Bilirubin 0.5 (0.2-1.0) mg/dl AST 16 (13-39) U/L ALT 7 (7-52) U/L Alkaline Phosphatase 91 (34-104) U/L Total Creatine Kinase 19 L (26-192) U/L Troponin I High Sens 16.5 H (0-14) pg/ml Total Protein 6.6 (6.0-8.3) gm/dl Albumin 3.8 (3.4-5.0) gm/dl Globulin 2.8 (2.5-4.0) gm/dl Albumin/Globulin Ratio 1.4 (0.9-2) Procalcitonin (0-0.5) ng/ml TSH (0.300-4.500) uIu/ml Urine Color Urine Appearance (Clear) Urine pH (4.5-7.5) Ur Specific [place] (1.000-1.030) Urine Protein (Negative) Urine Glucose (UA) (Negative) Urine Ketones (Negative) Urine Blood (Negative) Urine Nitrite (Negative) Urine Bilirubin (Negative) Urine Urobilinogen (Negative) Ur Leukocyte Esterase (Negative) Urine WBC (Auto) (0-5) /hpf Urine RBC (Auto) (0-4) /hpf U Hyaline Cast (Auto) (0-5) /lpf U Epithel Cells (Auto) (0-5) /lpf Urine Bacteria (Auto) (Negative) SARS-CoV-2 (PCR) NEGATIVE (Negative) Influenza Type A (PCR) Negative (Neg) Influenza Type B (PCR) Negative (Neg) RSV (RT-PCR) Negative (Neg) 11/24/22 11/24/22 11/24/22 Range/Units 09:47 09:47 09:48 WBC (4.8-10.8) K/ul RBC (4.20-5.40) M/uL Hgb (12.0-16.0) g/dl Hct (37.0-47.0) % MCV (80.0-100.0) fL MCH (25.0-34.0) pg MCHC (32.0-36.0) g/dL RDW Std Deviation (36.4-46.3) fL RDW Coeff of Namrata (11.5-14.5) % Plt Count (130-400) K/uL MPV (9.4-12.4) fL Immature Gran % (Auto) % Neut % (Auto) % Lymph % (Auto) % Rock % (Auto) % Eos % (Auto) % Baso % (Auto) % Neut # (Auto) (1.40-6.50) K/uL Lymph # (Auto) (1.2-3.4) K/uL Rock # (Auto) (0.11-0.59) K/uL Eos # (Auto) (0-0.50) K/uL Baso # (Auto) (0-0.2) K/uL Immature Gran # (Auto) (0.01-0.20) K/uL Sodium (136-145) mmol/L Potassium (3.5-5.1) mmol/L Chloride (98-107) mmol/L Carbon Dioxide (21-32) mmol/L Anion Gap (3-11) BUN (6-23) mg/dl Creatinine (0.6-1.2) mg/dl Est Cr Clr Drug Dosing Est GFR ( Amer) ml/min Est GFR (Non-Af Amer) ml/min BUN/Creatinine Ratio (10-20) Glucose (70-99(Fasting)) mg/dl Lactate 0.8 (0.4-2.0) mmol/L Calcium (8.5-10.1) mg/dl Magnesium (1.7-2.4) mg/dl Total Bilirubin (0.2-1.0) mg/dl AST (13-39) U/L ALT (7-52) U/L Alkaline Phosphatase (34-104) U/L Total Creatine Kinase (26-192) U/L Troponin I High Sens (0-14) pg/ml Total Protein (6.0-8.3) gm/dl Albumin (3.4-5.0) gm/dl Globulin (2.5-4.0) gm/dl Albumin/Globulin Ratio (0.9-2) Procalcitonin 0.10 (0-0.5) ng/ml TSH 1.624 (0.300-4.500) uIu/ml Urine Color Urine Appearance (Clear) Urine pH (4.5-7.5) Ur Specific [place] (1.000-1.030) Urine Protein (Negative) Urine Glucose (UA) (Negative) Urine Ketones (Negative) Urine Blood (Negative) Urine Nitrite (Negative) Urine Bilirubin (Negative) Urine Urobilinogen (Negative) Ur Leukocyte Esterase (Negative) Urine WBC (Auto) (0-5) /hpf Urine RBC (Auto) (0-4) /hpf U Hyaline Cast (Auto) (0-5) /lpf U Epithel Cells (Auto) (0-5) /lpf Urine Bacteria (Auto) (Negative) SARS-CoV-2 (PCR) (Negative) Influenza Type A (PCR) (Neg) Influenza Type B (PCR) (Neg) RSV (RT-PCR) (Neg) 11/24/22 Range/Units Unknown WBC (4.8-10.8) K/ul RBC (4.20-5.40) M/uL Hgb (12.0-16.0) g/dl Hct (37.0-47.0) % MCV (80.0-100.0) fL MCH (25.0-34.0) pg MCHC (32.0-36.0) g/dL RDW Std Deviation (36.4-46.3) fL RDW Coeff of Namrata (11.5-14.5) % Plt Count (130-400) K/uL MPV (9.4-12.4) fL Immature Gran % (Auto) % Neut % (Auto) % Lymph % (Auto) % Rock % (Auto) % Eos % (Auto) % Baso % (Auto) % Neut # (Auto) (1.40-6.50) K/uL Lymph # (Auto) (1.2-3.4) K/uL Rock # (Auto) (0.11-0.59) K/uL Eos # (Auto) (0-0.50) K/uL Baso # (Auto) (0-0.2) K/uL Immature Gran # (Auto) (0.01-0.20) K/uL Sodium (136-145) mmol/L Potassium (3.5-5.1) mmol/L Chloride (98-107) mmol/L Carbon Dioxide (21-32) mmol/L Anion Gap (3-11) BUN (6-23) mg/dl Creatinine (0.6-1.2) mg/dl Est Cr Clr Drug Dosing Est GFR ( Amer) ml/min Est GFR (Non-Af Amer) ml/min BUN/Creatinine Ratio (10-20) Glucose (70-99(Fasting)) mg/dl Lactate (0.4-2.0) mmol/L Calcium (8.5-10.1) mg/dl Magnesium (1.7-2.4) mg/dl Total Bilirubin (0.2-1.0) mg/dl AST (13-39) U/L ALT (7-52) U/L Alkaline Phosphatase (34-104) U/L Total Creatine Kinase (26-192) U/L Troponin I High Sens (0-14) pg/ml Total Protein (6.0-8.3) gm/dl Albumin (3.4-5.0) gm/dl Globulin (2.5-4.0) gm/dl Albumin/Globulin Ratio (0.9-2) Procalcitonin (0-0.5) ng/ml TSH (0.300-4.500) uIu/ml Urine Color Yellow Urine Appearance Clear (Clear) Urine pH 8.0 H (4.5-7.5) Ur Specific [place] 1.009 (1.000-1.030) Urine Protein Trace H (Negative) Urine Glucose (UA) Negative (Negative) Urine Ketones Negative (Negative) Urine Blood Negative (Negative) Urine Nitrite Negative (Negative) Urine Bilirubin Negative (Negative) Urine Urobilinogen Negative (Negative) Ur Leukocyte Esterase Negative (Negative) Urine WBC (Auto) 1-5 (0-5) /hpf Urine RBC (Auto) 0-4 (0-4) /hpf U Hyaline Cast (Auto) 0 (0-5) /lpf U Epithel Cells (Auto) 10-20 H (0-5) /lpf Urine Bacteria (Auto) Negative (Negative) SARS-CoV-2 (PCR) (Negative) Influenza Type A (PCR) (Neg) Influenza Type B (PCR) (Neg) RSV (RT-PCR) (Neg) Imaging Data Radiologist's Impression: Chest X-Ray 11/24/22 09:36 XR chest 1V portable CLINICAL HISTORY: congestion, confusion COMPARISON STUDY: Chest radiograph October 29, 2022. FINDINGS: Lung volumes are mildly diminished. Dual-lead left subclavian pacer is in place. There is no pneumothorax or pleural effusion. Patchy opacities shown on exam of October 29, 2022 have improved. There is a possible 1.6 cm nodular opacity within the right lower lung. Cardiomediastinal silhouette is stable. There is no evidence for pulmonary edema. Old left ninth rib fracture is incidentally noted as well as severe arthritis of both glenohumeral joints. IMPRESSION: 1. Interval improvement in patchy airspace opacities and interstitial thickening shown on prior exam. 2. Possible 1.6 cm nodular opacity within the right lower lung. This could reflect a small focus of airspace disease. ACT 112: Negative or not required by law. Electronically signed by: Sedrick Villa M.D. 11/24/2022 10:[address] 11/24/22 09:36 CT OF THE HEAD WITHOUT CONTRAST CLINICAL HISTORY: Confusion. COMPARISON STUDY: Head CT May 02, 2020. CT DOSE: 614.27 mGy.cm TECHNIQUE: Helical axial images of the head were obtained without IV contrast. Automated exposure control was utilized for the study. A dose lowering technique was utilized adhering to the principles of ALARA. FINDINGS: No acute intracranial hemorrhage, midline shift or mass effect is present. White matter hypodensities are similar to prior exam and favor small vessel disease. The ventricular system is unremarkable. The basal cisterns are patent. No extra-axial collections are present. There are no findings to suggest acute dural sinus thrombosis or acute territorial infarct. No significant calvarial abnormalities are present. Visualized portions of the sinuses and mastoid air cells are clear. IMPRESSION: No acute intracranial findings. No significant change in appearance of the brain. ACT 112: Negative or not required by law. Electronically signed by: Sedrick Villa M.D. 11/24/2022 12:37 PM Discharge Plan Visit Data Chief Complaint: Respiratory Problems Stated Complaint: RESP PROBLEMS ED Provider: Polo Quintanilla Discharge Problem: Transient confusion, Hypertension, Ambulatory dysfunction Patient Disposition: Being Evaluated by Hospitalist Condition: Good Prescriptions Prescriptions: No Action Incruse Ellipta 62.5 mcg/actuation blister with device 1 inh inhalation QAM isosorbide mononitrate 30 mg tablet extended release 24 hr 30 mg PO DAILY famotidine [Pepcid] 20 mg tablet 20 mg PO DAILY PRN (Reason: gastric reflux) metoprolol succinate 100 mg tablet extended release 24 hr 100 mg PO QAM aspirin 81 mg Tablet,Delayed Release (Dr/Ec) 81 mg PO QAM fluoxetine 20 mg capsule 20 mg PO BID calcium carbonate-vitamin D3 [Oyster Shell Calcium-Vit D3] 500 mg(1,250mg) - 200 unit Tablet 1 tab PO QAM omega 4-ccd-sbp-fish oil [Fish Oil] 1,000 mg (120 mg-180 mg) Capsule 1 cap PO BID losartan 100 mg tablet 100 mg PO DAILY acetaminophen [Tylenol Extra Strength] 500 mg Tablet 500 - 1,000 mg PO DAILY MDD 3 GRAMS/24 HOURS PRN (Reason: Pain) Eliquis 5 mg tablet 5 mg PO BID ipratropium-albuterol 0.5 mg-3 mg(2.5 mg base)/3 mL Solution For Nebulization 3 ml INHALATION QID PRN (Reason: Shortness Of Breath Or Wheezing) diltiazem HCl 180 mg capsule,extended release 24hr 180 mg PO DAILY Cranberry Plus Vitamin C 140-100 mg Capsule 1 cap PO BID nystatin-triamcinolone 100,000-0.1 unit/g-% Cream 1 applic TOPICAL BID PRN (Reason: FUNGAL RASH) docusate sodium 100 mg Capsule 100 mg PO DAILY docusate sodium 100 mg Capsule 100 mg PO DAILY PRN (Reason: Constipation) Coricidin HBP Cold and Flu 2-325 mg Tablet 1 tab PO DIRECTED PRN (Reason: COLD/FLU SYMPTOMS) Rx Instructions: DOSE PER PKG INSTRUCTIONS. Hemorrhoid Ointment 1 applic MD DIRECTED PRN (Reason: Hemorrhoids) insulin glargine [Lantus Solostar U-100 Insulin] 100 unit/mL (3 mL) insulin pen 10 unit SC HS fluticasone propion-salmeterol [Wixela Inhub] 250-50 mcg/dose Blister With Device 1 inh INHALATION BID menthol-zinc oxide [Calmoseptine] 0.44-20.6 % Ointment 1 applic TOPICAL DIRECTED PRN (Reason: SKIN BREAKDOWN) Metamucil 3.4 gram/5.4 gram Powder 1 tbsp PO DAILY Rx Instructions: MIX WITH 8 OZ. FLUID omeprazole 40 mg capsule,delayed release(DR/EC) 40 mg PO QAM multivitamin [Daily-Hellen] Tablet 1 tab PO DAILY fluoxetine 10 mg capsule 10 mg PO BID Rx Instructions: take along with 20mg Referrals Referrals: Edil Kaur DO [Primary Care Provider] -
--- NOTE | 2022-11-24 10:04 | XRay Report ---
XR chest 1V portable CLINICAL HISTORY: congestion, confusion COMPARISON STUDY: Chest radiograph October 29, 2022. FINDINGS: Lung volumes are mildly diminished. Dual-lead left subclavian pacer is in place. There is n o pneumothorax or pleural effusion. Patchy opacities shown on exam of October 29, 2022 have improved. There is a possible 1.6 cm nodular opacity within the right lower lung. Cardiomediastinal silhouette is stable. There is no evidence for pulmonary edema. Old left ninth rib fracture is incidentally note d as well as severe arthritis of both glenohumeral joints. IMPRESSION: 1. Interval improvement in patchy airspace opacities and interstitial thickening shown on prior exam. 2. Possible 1.6 cm nodular opacity within the right lower lung. This could reflect a small focus of a irspace disease. ACT 112: Negative or not required by law. Electronically signed by: Sedrick Villa M.D. 11/24/2022 10:02 AM
[2022-11-24 10:09] LABS: Basophils # (auto) 0.06 K/uL (0-0.2); Basophils % (auto) 1.1 %; Eosinophils # (auto) 0.43 K/uL (0-0.50); Hematocrit (blood only) 35.7 % (37.0-47.0); Hemoglobin 11.8 g/dl (12.0-16.0); Lymphocytes # (auto) 1.21 K/uL (1.2-3.4); Lymphocytes % (auto) 22.5 %; Mean Corpuscular Hemoglobin 30.2 pg (25.0-34.0); Mean Corpuscular Hgb Conc 33.1 g/dL (32.0-36.0); Mean Corpuscular Volume 91.3 fL (80.0-100.0); Mean Platelet Volume 9.4 fL (9.4-12.4); Monocytes # (auto) 0.59 K/uL (0.11-0.59); Neutrophils # (auto) 3.08 K/uL (1.40-6.50); Neutrophils % (auto) 57.4 %; Platelet Count 233 K/uL (130-400); RDW Coefficient of Variation 14.2 % (11.5-14.5); RDW Standard Deviation 47.5 fL (36.4-46.3); Red Blood Count 3.91 M/uL (4.20-5.40); White Blood Count 5.37 K/ul (4.8-10.8)
[2022-11-24 10:33] LABS: Alanine Aminotransferase 7 U/L (7-52); Albumin Globulin Ratio 1.4 (0.9-2); Albumin Level 3.8 gm/dl (3.4-5.0); Alkaline Phosphatase 91 U/L (34-104); Anion Gap 5 (3-11); Aspartate Aminotransferase 16 U/L (13-39); BUN Creatinine Ratio 10.4 (10-20); Bilirubin,Total 0.5 mg/dl (0.2-1.0); Blood Urea Nitrogen 11 mg/dl (6-23); Calcium 9.7 mg/dl (8.5-10.1); Carbon Dioxide 30 mmol/L (21-32); Chloride 105 mmol/L (98-107); Creatine Kinase 19 U/L (26-192); Est GFR (African American) 53.9 ml/min; Est GFR (Non-African American) 46.5 ml/min; Globulin 2.8 gm/dl (2.5-4.0); Glucose 129 mg/dl (70-99(Fasting)); Magnesium 1.9 mg/dl (1.7-2.4); Sodium 140 mmol/L (136-145); Total Protein 6.6 gm/dl (6.0-8.3); Troponin I High Sensitivity 16.5 pg/ml (0-14)
[2022-11-24 12:17] LABS: Appearance Urine Clear (Clear); Bacteria Urine Automated Negative (Negative); Bilirubin Urine Negative (Negative); Blood Urine Negative (Negative); Cast Urine Automated 0 /lpf (0-5); Color Urine Yellow; Glucose Urine UA Negative (Negative); Ketones Urine Negative (Negative); Leukocyte Esterase Urine Negative (Negative); Nitrite Urine Negative (Negative); RBC Urine Automated 0-4 /hpf (0-4); Specific Gravity Urine 1.009 (1.000-1.030); Urobilinogen Urine Negative (Negative)
[2022-11-24 12:18] LABS: Protein Urine Trace (Negative)
--- NOTE | 2022-11-24 12:39 | CT Scan Report ---
CT OF THE HEAD WITHOUT CONTRAST CLINICAL HISTORY: Confusion. COMPARISON STUDY: Head CT May 02, 2020. CT DOSE: 614.27 mGy.cm TECHNIQUE: Helical axial images of the head were obtained without IV contrast. Automated exposure con trol was utilized for the study. A dose lowering technique was utilized adhering to the principles o f ALARA. FINDINGS: No acute intracranial hemorrhage, midline shift or mass effect is present. White matter hyp odensities are similar to prior exam and favor small vessel disease. The ventricular system is unrema rkable. The basal cisterns are patent. No extra-axial collections are present. There are no findings to suggest acute dural sinus thrombosis or acute territorial infarct. No significant calvarial abnorm alities are present. Visualized portions of the sinuses and mastoid air cells are clear. IMPRESSION: No acute intracranial findings. No significant change in appearance of the brain. ACT 112: Negative or not required by law. Electronically signed by: Sedrick Villa M.D. 11/24/2022 12:37 PM
[2022-11-24 13:28] LABS: Influenza A virus by PCR Negative (Neg); Influenza B virus by PCR Negative (Neg); RSV by PCR Negative (Neg); SARS CoV2 RNA(COVID-19) Ceph NEGATIVE (Negative)
--- NOTE | 2022-11-24 14:19 | Electrocardiogram Report ---
Test Reason : Blood Pressure : / mmHG Vent. Rate : 064 BPM Atrial Rate : 064 BPM P-R Int : 262 ms QRS Dur : 140 ms QT Int : 408 ms P-R-T Axes : 094 011 103 degrees QTc Int : 420 ms Poor data quality, interpretation may be adversely affected Atrial-paced rhythm with prolonged AV conduction Left bundle branch block Abnormal ECG When compared with ECG of 27-OCT-2022 22:01, QT has shortened Confirmed by Luiz Hartmann ([id number]) on 11/24/2022 2:19:48 PM Referred By: REFERRED SELF Confirmed By:Luiz Hartmann
--- NOTE | 2022-11-24 16:50 | History & Physical Report ---
Date of Service November 24, 2022 Assessment & Plan (1) Physical deconditioning: Plan: At baseline, patient ambulates with a walker. However patient has not been eating well for the past couple of days and this could lead to her weakness. Will encourage oral intake, also encourage physical therapy (2) Dementia: Plan: Dementia at baseline (3) Depression: Plan: Continue home medications (4) Afib: Plan: Rate is well controlled On Eliquis at home, continue. (5) S/P placement of cardiac pacemaker: (6) Hypertension: Plan: Blood pressures under fair control Continue home medications. (7) Chronic kidney disease, stage III (moderate): Plan: Renal function at baseline Avoid nephrotoxic's (8) COPD exacerbation: Plan: Not in exacerbation Continue home medications. (9) DM w/o complication type II, uncontrolled: Plan: Blood glucose under fair control Continue insulin sliding scale Continue home medications. Plan Consult social science instructor for discharge plans History of Present Illness Primary Care Provider: Edil Renoadri Is an 87-year-old [facility] resident with a history of dementia, atrial fibrillation, pacemaker, hypertension, COPD, CKD, type 2 diabetes, depression, who was [facility] her [facility] on account of weakness and more confusion than usual. Most of the history was obtained from the ED doctor and also from the son at the bedside. According to sources, the staff at [facility] noticed that the patient was found standing in her bathroom more confused than usual, so they thought probably she was having another bout of UTI so they brought her to the hospital. However according to the son who was at the bedside when I evaluated her she said her mentation is now back to baseline. However when the ED physician wanted to discharge her back, and I walked her did notice she was very weak and could not ambulate very well. At baseline she ambulates with a walker, however she will be admitted to the hospital on observation for physical therapy. Also of note, patient has not been eating well for the past couple of days. Basic labs, CBC BMP within normal limits, no evidence of UTI on urinalysis. She was recently discharged from this hospital after she was admitted for [facility] [place] early last month Allergies Allergy/AdvReac Type Severity Reaction Status Date / Time No Known Allergies Allergy Verified 10/27/22 19:19 Home Medications Medication Instructions Recorded Confirmed Type aspirin 81 mg tablet,delayed 81 mg PO QAM 02/02/19 11/24/22 History release calcium carbonate 500 mg-vitamin 1 tab PO QAM 02/02/19 11/24/22 History D3 5 mcg (200 unit) tablet (Oyster Shell Calcium-Vitamin D3) fluoxetine 20 mg capsule 20 mg PO BID 02/02/19 11/24/22 History metoprolol succinate 100 mg 100 mg PO QAM 02/02/19 11/24/22 History tablet,extended release 24 hr omega 8-qdz-ojh-fish oil 1,000 mg 1 cap PO BID 02/02/19 11/24/22 History (120 mg-180 mg) capsule (Fish Oil) losartan 100 mg tablet 100 mg PO DAILY 03/11/19 11/24/22 History acetaminophen 500 mg tablet 500 - 1,000 mg PO DAILY PRN Pain 07/26/19 11/24/22 History (Tylenol Extra Strength) apixaban 5 mg tablet (Eliquis) 5 mg PO BID 06/25/20 11/24/22 History famotidine 20 mg tablet (Pepcid) 20 mg PO DAILY PRN gastric reflux 06/30/20 11/24/22 History umeclidinium 62.5 mcg/actuation 1 inh inhalation QAM 01/05/21 11/24/22 History blister powder for inhalation (Incruse Ellipta) fluticasone 250 mcg-salmeterol 50 1 inh inhalation BID 02/15/21 11/24/22 History mcg/dose blistr powdr for inhalation (Wixela Inhub) menthol 0.44 %-zinc oxide 20.6 % 1 applic topical DIRECTED PRN 02/15/21 11/24/22 History topical ointment (Calmoseptine) SKIN BREAKDOWN omeprazole 40 mg capsule,delayed 40 mg PO QAM 02/15/21 11/24/22 History release psyllium husk 3.4 gram/5.4 gram 1 tbsp PO DAILY 02/15/21 11/24/22 History oral powder (Metamucil) isosorbide mononitrate 30 mg 30 mg PO DAILY 07/25/22 11/24/22 History tablet,extended release 24 hr chlorpheniramine-acetaminophen 2 1 tab PO DIRECTED PRN COLD/FLU 10/27/22 11/24/22 History mg-325 mg tablet (Coricidin HBP SYMPTOMS Cold and Flu) cranberry concentrate-ascorbic 1 cap PO BID 10/27/22 11/24/22 History acid 140 mg-100 mg capsule (Cranberry Plus Vitamin C) diltiazem HCl 180 mg 180 mg PO DAILY 10/27/22 11/24/22 History capsule,extended release 24 hr docusate sodium 100 mg capsule 100 mg PO DAILY 10/27/22 11/24/22 History docusate sodium 100 mg capsule 100 mg PO DAILY PRN Constipation 10/27/22 11/24/22 History insulin glargine 100 unit/mL (3 10 unit SC HS 10/27/22 11/24/22 History mL) subcutaneous pen (Lantus Solostar U-100 Insulin) ipratropium 0.5 mg-albuterol 3 mg 3 ml inhalation QID PRN Shortness 10/27/22 11/24/22 History (2.5 mg base)/3 mL nebulization Of Breath Or Wheezing soln nystatin-triamcinolone 100,000 1 applic topical BID PRN FUNGAL 10/27/22 11/24/22 History unit/g-0.1 % topical cream RASH phenylephrine-shark liver 1 applic UT DIRECTED PRN 10/27/22 11/24/22 History oil-mineral oil-petrolatum rectal Hemorrhoids ointment (Hemorrhoid ointment) fluoxetine 10 mg capsule 10 mg PO BID 11/24/22 11/24/22 History multivitamin (Daily-Hellen tablet) 1 tab PO DAILY 11/24/22 11/24/22 History Past Med/Surg History Medical History Asthma Dependence on supplemental oxygen Essential (primary) hypertension Former smoker Frozen shoulder Hyperlipidemia Pacemaker PAT (paroxysmal atrial tachycardia) Sinus node dysfunction Symptomatic bradycardia Syncope Surgical History H/O bilateral cataract extraction History of left hip replacement History of right hip replacement History of total abdominal hysterectomy and bilateral salpingo-oophorectomy Family History Father Cancer laryngeal (smoker) Mother Ovarian cancer Social History Smoking Status: Never smoker Tobacco Type: Cigarettes Cigarettes Per Day: <1/2 ppd x 40 years; Second Hand Exposure: No; Hx Alcohol Use: No Hx Substance Use: No Preferred Language: Malagasy Communication Ability: Impaired Coordinator Integrated Marketing Required: No Beliefs That Will Affect Care: None marital status: / Current Living Situation: Family Current Living Situation Comment: Eliceo Nelson [facility] current occupational status: retired 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 No JVD. No bruits. Thyroid normal, trachea midline, no adenopathy. Heart--normal S1 and S2. No murmurs, rubs or gallops. Lungs--clear bilaterally, no respiratory distress, no accessory muscle use. Abdomen--normal bowel sounds and soft. Mild epigastric and left sided abdominal pain Extremities--no cyanosis or clubbing. No edema. Dermatologic--normal skin turgor, normal color, no abnormal lymph nodes, no rash. Neurologic--cranial nerves II through XII grossly intact. Rheumatologic--normal range of motion. Psychiatric--normal affect. Results & Data Results & Data ([facility]) Vital Signs (Past 12 Hours) Vital Signs Temp Pulse Pulse Resp BP BP Pulse Ox 11/24/22 16:36 65 19 232/87 H 96 11/24/22 13:39 71 24 208/87 H 98 11/24/22 13:30 65 12 97 11/24/22 13:30 212/119 H 11/24/22 13:20 60 22 96 11/24/22 13:16 60 17 205/79 H 94 11/24/22 13:00 62 20 97 11/24/22 12:01 23 197/90 H 94 11/24/22 11:46 17 195/87 H 96 11/24/22 11:31 21 177/85 H 94 11/24/22 11:16 22 203/79 H 95 11/24/22 11:10 19 94 11/24/22 11:00 18 197/74 H 95 11/24/22 10:46 24 200/73 H 95 11/24/22 10:31 72 19 193/138 H 96 11/24/22 09:36 95 11/24/22 09:36 65 18 184/94 H 95 11/24/22 09:39 95 11/24/22 09:33 98.8 F 66 16 203/74 H 95 O2 Del Method 11/24/22 16:36 Room Air 11/24/22 13:39 Room Air 11/24/22 13:30 Room Air 11/24/22 13:30 11/24/22 13:20 Room Air 11/24/22 13:16 Room Air 11/24/22 13:00 Room Air 11/24/22 12:01 Room Air 11/24/22 11:46 Room Air 11/24/22 11:31 Room Air 11/24/22 11:16 Room Air 11/24/22 11:10 Room Air 11/24/22 11:00 Room Air 11/24/22 10:46 Room Air 11/24/22 10:31 Room Air 11/24/22 09:36 Room Air 11/24/22 09:36 Room Air 11/24/22 09:39 Room Air 11/24/22 09:33 Room Air PG Care Time/CCT Total # of Minutes Spent Total Time Spent with Patient: Total time spent is greater than 50% in coordination of care (as documented) at patient's floor/unit and/or counseling patient: Coding Level of Care Code 48597 INT INP/OBS CARE 3/75MIN Diagnoses Physical deconditioning R53.81 Dementia F03.90 Depression F32.A Afib I48.91 S/P placement of cardiac pacemaker Z95.0 Hypertension I10 Chronic kidney disease, stage III (moderate) N18.32 Chronic kidney disease stage 3 subtype: stage 3b (GFR 30-44) COPD exacerbation J44.1 DM w/o complication type II, uncontrolled E11.65 Glycemic state: with hyperglycemia Time Spent (min) 35 (1) Chronic kidney disease, stage III (moderate) Chronic kidney disease stage 3 subtype: stage 3b (GFR 30-44) Qualified Code(s): N18.32 - Chronic kidney disease, stage 3b (2) DM 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
[2022-11-24] MEDS ORDERED: [UNRECOGNIZED DRUG - OTHER] PO PRN (17:22)
[2022-11-24] MEDS ORDERED: MINERAL OIL PR PRN (17:22)
[2022-11-24] MEDS ORDERED: DOCUSATE SODIUM 100 MG CAP PO PRN (17:22)
[2022-11-24] MEDS ORDERED: CHLORPHENIRAMINE PO PRN (17:22)
[2022-11-24] MEDS ORDERED: ACETAMINOPHEN 325 MG TAB PO PRN (17:22)
[2022-11-24] MEDS ORDERED: SHARK LIVER OIL PR PRN (17:22)
[2022-11-24] MEDS ORDERED: PETROLATUM PR PRN (17:22)
[2022-11-24] MEDS ORDERED: ALBUT/IPRATROP 3MG/0.5MG NEB 3 ML VIAL INH PRN (17:22)
[2022-11-24] MEDS ORDERED: FAMOTIDINE 20 MG TAB PO PRN (17:22)
[2022-11-24] MEDS ORDERED: PHENYLEPHRINE PR PRN (17:22)
[2022-11-24] MEDS ORDERED: ACETAMINOPHEN PO PRN (17:22)
[2022-11-24] MEDS ORDERED: GLUCOSE 10 TAB/TUBE PO PRN (17:45)
[2022-11-24] MEDS ORDERED: GLUCAGON FOR INJ 1 MG VIAL IM PRN (17:45)
[2022-11-24] MEDS ORDERED: CARBOHYDRATES FOR HYPOGLYCEMIA PO PRN (17:45)
[2022-11-24] MEDS ORDERED: GLUCOSE 40% GEL 15 GM TUBE PO PRN (17:45)
[2022-11-24] MEDS ORDERED: DEXTROSE 50% 50 ML SYRINGE IV PRN (17:45)
[2022-11-24] MEDS: LANTUS PER UNIT CHARGE SQ SCH (21:22)
[2022-11-24] MEDS: OMEGA-3 (PURIFIED FISH OIL) 1 GM CAP PO SCH (21:22)
[2022-11-24] MEDS: FLUoxetine HCL 20 MG CAP PO SCH (21:23)
[2022-11-24] MEDS: FLUoxetine HCL 10 MG CAP PO SCH (21:23)
[2022-11-24] MEDS: APIXABAN 5 MG TABLET PO SCH (21:24)
[2022-11-25] MEDS: dilTIAZem HCL 180 MG CAPCR PO SCH (07:59)
[2022-11-25] MEDS: LOSARTAN POTASSIUM 50 MG TAB PO SCH (08:00)
[2022-11-25] MEDS: CALCIUM 600MG + VIT D 400 IU TAB PO SCH (08:00)
[2022-11-25] MEDS: METOPROLOL SUCC 50MG EXT REL TAB PO SCH (08:00)
[2022-11-25] MEDS: ISOSORBIDE MONO EXTENDED REL 30 MG TABCR PO SCH (08:01)
[2022-11-25] MEDS: PANTOprazole 40 MG TAB PO SCH (08:01)
[2022-11-25] MEDS: DOCUSATE SODIUM 100 MG CAP PO SCH (08:01)
[2022-11-25] MEDS: MULTIVITAMIN TAB PO SCH (08:01)
[2022-11-25] MEDS: ASPIRIN 81 MG ECTAB PO SCH (08:01)
[2022-11-25] MEDS: PSYLLIUM or GUAR GUM FIBER POWDER PACKET PO SCH (08:02)
[2022-11-25] MEDS: OMEGA-3 (PURIFIED FISH OIL) 1 GM CAP PO SCH ×2 (08:02→21:37)
[2022-11-25] MEDS: FLUoxetine HCL 20 MG CAP PO SCH ×2 (08:02→21:37)
[2022-11-25] MEDS: APIXABAN 5 MG TABLET PO SCH ×2 (08:02→21:37)
[2022-11-25] MEDS: FLUoxetine HCL 10 MG CAP PO SCH ×2 (08:02→21:36)
[2022-11-25] MEDS: FLUTICASONE/VILANTEROL 100/25MCG 14 PUFFS/INHALER INH SCH (08:03)
[2022-11-25] MEDS: UMECLIDINIUM BROMIDE 62.5MCG/BLISTER 7 PUFFS/INHALER INH SCH (08:04)
--- NOTE | 2022-11-25 13:26 | Hospitalist Progress Note ---
Date of Service November 25, 2022 Assessment & Plan (1) Physical deconditioning: Plan: At baseline, patient ambulates with a walker. [facility] She worked with physical therapy here and they determined she will need SNF Plan is for SNF (2) Dementia: Plan: Dementia at baseline (3) Depression: Plan: Continue home medications (4) Afib: Plan: Rate is well controlled On Eliquis at home, continue. (5) S/P placement of cardiac pacemaker: (6) Hypertension: Plan: Blood pressures under fair control Continue home medications. (7) Chronic kidney disease, stage III (moderate): Plan: Renal function at baseline Avoid nephrotoxic's (8) COPD exacerbation: Plan: Not in exacerbation Continue home medications. (9) DM w/o complication type II, uncontrolled: Plan: Blood glucose under fair control Continue insulin sliding scale Continue home medications. Plan [place] to go back [facility] her [facility], will need SNF Admission and Anticipated Discharge Date Admission Date: November 25, 2022 Subjective patient seen and examined, pleasantly confused Review of Systems Review of Systems: Unreliable due to confusion Physical Exam Physical Exam: The patient is awake, alert confused HEENT--PERRL, EOMI, mucous membranes and oropharynx mildly dry Neck--supple. No JVD. No bruits. Thyroid normal, trachea midline, no adenopathy. Heart--normal S1 and S2. No murmurs, rubs or gallops. Lungs--clear bilaterally, no respiratory distress, no accessory muscle use. Abdomen--normal bowel sounds and soft. Mild epigastric and left sided abdominal pain Extremities--no cyanosis or clubbing. No edema. Dermatologic--normal skin turgor, normal color, no abnormal lymph nodes, no rash. Neurologic--cranial nerves II through XII grossly intact. Rheumatologic--normal range of motion. Psychiatric--normal affect. Results & Data Results & Data ([facility]) Vital Signs (Past 12 Hours) Vital Signs Temp Pulse Resp BP BP Pulse Ox O2 Del Method 11/25/22 07:38 97.3 F L 66 16 191/82 H 93 Room Air 11/25/22 03:40 97.5 F L 64 16 177/80 H 95 Room Air PG Care Time/CCT Total # of Minutes Spent Total Time Spent with Patient: Total time spent is greater than 50% in coordination of care (as documented) at patient's floor/unit and/or counseling patient: Coding Level of Care Code 99499 SUB INP/OBS CARE 2/35MIN Diagnoses Physical deconditioning R53.81 Dementia F03.90 Depression F32.A Afib I48.91 S/P placement of cardiac pacemaker Z95.0 Hypertension I10 Chronic kidney disease, stage III (moderate) N18.32 Chronic kidney disease stage 3 subtype: stage 3b (GFR 30-44) COPD exacerbation J44.1 DM w/o complication type II, uncontrolled E11.65 Glycemic state: with hyperglycemia Time Spent (min) 35 (1) Chronic kidney disease, stage III (moderate) Chronic kidney disease stage 3 subtype: stage 3b (GFR 30-44) Qualified Code(s): N18.32 - Chronic kidney disease, stage 3b (2) DM 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
[2022-11-25] MEDS: LANTUS PER UNIT CHARGE SQ SCH (21:34)
[2022-11-26] MEDS: FLUoxetine HCL 20 MG CAP PO SCH ×2 (09:31→20:37)
[2022-11-26] MEDS: OMEGA-3 (PURIFIED FISH OIL) 1 GM CAP PO SCH ×2 (09:31→20:38)
[2022-11-26] MEDS: ASPIRIN 81 MG ECTAB PO SCH (09:32)
[2022-11-26] MEDS: PANTOprazole 40 MG TAB PO SCH (09:32)
[2022-11-26] MEDS: FLUoxetine HCL 10 MG CAP PO SCH ×2 (09:32→20:37)
[2022-11-26] MEDS: METOPROLOL SUCC 50MG EXT REL TAB PO SCH (09:32)
[2022-11-26] MEDS: ISOSORBIDE MONO EXTENDED REL 30 MG TABCR PO SCH (09:32)
[2022-11-26] MEDS: dilTIAZem HCL 180 MG CAPCR PO SCH (09:32)
[2022-11-26] MEDS: DOCUSATE SODIUM 100 MG CAP PO SCH (09:32)
[2022-11-26] MEDS: APIXABAN 5 MG TABLET PO SCH ×2 (09:32→20:36)
[2022-11-26] MEDS: MULTIVITAMIN TAB PO SCH (09:32)
[2022-11-26] MEDS: LOSARTAN POTASSIUM 50 MG TAB PO SCH (09:32)
[2022-11-26] MEDS: PSYLLIUM or GUAR GUM FIBER POWDER PACKET PO SCH (09:32)
[2022-11-26] MEDS: CALCIUM 600MG + VIT D 400 IU TAB PO SCH (09:32)
[2022-11-26] MEDS: FLUTICASONE/VILANTEROL 100/25MCG 14 PUFFS/INHALER INH SCH (09:33)
[2022-11-26] MEDS: UMECLIDINIUM BROMIDE 62.5MCG/BLISTER 7 PUFFS/INHALER INH SCH (09:33)
[2022-11-26] MEDS: cloNIDine HCL 0.1 MG TAB PO SCH ×2 (09:54→14:55)
--- NOTE | 2022-11-26 14:56 | Hospitalist Progress Note ---
Date of Service November 26, 2022 Assessment & Plan (1) Physical deconditioning: Plan: At baseline, patient ambulates with a walker. Found to have become weaker at her personal shelter She worked with physical therapy here and they determined she will need SNF Plan is for SNF (2) Dementia: Plan: Dementia at baseline (3) Depression: Plan: Continue home medications (4) Afib: Plan: Rate is well controlled On Eliquis at home, continue. (5) Hypertension: Plan: Blood pressures under fair control Continue home medications. (6) Chronic kidney disease, stage III (moderate): Plan: Renal function at baseline Avoid nephrotoxic's (7) COPD exacerbation: Plan: Not in exacerbation Continue home medications. (8) DM w/o complication type II, uncontrolled: Plan: Blood glucose under fair control Continue insulin sliding scale Continue home medications. (9) S/P placement of cardiac pacemaker: Plan [place]ale to go back to her personal shelter, will need SNF Admission and Anticipated Discharge Date Admission Date: November 25, 2022 Subjective patient seen and examined, pleasantly confused Review of Systems Review of Systems: Unreliable due to confusion Physical Exam Physical Exam: The patient is awake, alert confused HEENT--PERRL, EOMI, mucous membranes and oropharynx mildly dry Neck--supple. No JVD. No bruits. Thyroid normal, trachea midline, no adenopathy. Heart--normal S1 and S2. No murmurs, rubs or gallops. Lungs--clear bilaterally, no respiratory distress, no accessory muscle use. Abdomen--normal bowel sounds and soft. Mild epigastric and left sided abdominal pain Extremities--no cyanosis or clubbing. No edema. Dermatologic--normal skin turgor, normal color, no abnormal lymph nodes, no rash. Neurologic--cranial nerves II through XII grossly intact. Rheumatologic--normal range of motion. Psychiatric--normal affect. Results & Data Results & Data ([facility]) Vital Signs (Past 12 Hours) Vital Signs Temp Pulse Resp BP BP Pulse Ox O2 Del Method 11/26/22 14:50 97.7 F 70 16 96/57 L 94 Room Air 11/26/22 07:35 97.9 F 68 16 185/75 H 201/73 H 95 Room Air PG Care Time/CCT Total # of Minutes Spent Total Time Spent with Patient: Total time spent is greater than 50% in coordination of care (as documented) at patient's floor/unit and/or counseling patient: Coding Level of Care Code 27763 SUB INP/OBS CARE 2/35MIN Diagnoses Physical deconditioning R53.81 Dementia F03.90 Depression F32.A Afib I48.91 Hypertension I10 Chronic kidney disease, stage III (moderate) N18.32 Chronic kidney disease stage 3 subtype: stage 3b (GFR 30-44) COPD exacerbation J44.1 DM w/o complication type II, uncontrolled E11.65 Glycemic state: with hyperglycemia S/P placement of cardiac pacemaker Z95.0 Time Spent (min) 35 (1) Chronic kidney disease, stage III (moderate) Chronic kidney disease stage 3 subtype: stage 3b (GFR 30-44) Qualified Code(s): N18.32 - Chronic kidney disease, stage 3b (2) DM w/o complication type II, uncontrolled Glycemic state: with hyperglycemia Qualified Code(s): E11.65 - Type 2 di abetes mellitus with hyperglycemia
[2022-11-26] MEDS: LANTUS PER UNIT CHARGE SQ SCH (20:40)
[2022-11-27] MEDS: FLUTICASONE/VILANTEROL 100/25MCG 14 PUFFS/INHALER INH SCH (08:56)
[2022-11-27] MEDS: UMECLIDINIUM BROMIDE 62.5MCG/BLISTER 7 PUFFS/INHALER INH SCH (08:56)
[2022-11-27] MEDS: CALCIUM 600MG + VIT D 400 IU TAB PO SCH (08:57)
[2022-11-27] MEDS: LOSARTAN POTASSIUM 50 MG TAB PO SCH (08:57)
[2022-11-27] MEDS: OMEGA-3 (PURIFIED FISH OIL) 1 GM CAP PO SCH ×2 (08:57→19:49)
[2022-11-27] MEDS: ISOSORBIDE MONO EXTENDED REL 30 MG TABCR PO SCH (08:57)
[2022-11-27] MEDS: MULTIVITAMIN TAB PO SCH (08:57)
[2022-11-27] MEDS: FLUoxetine HCL 10 MG CAP PO SCH ×2 (08:57→19:49)
[2022-11-27] MEDS: ASPIRIN 81 MG ECTAB PO SCH (08:57)
[2022-11-27] MEDS: FLUoxetine HCL 20 MG CAP PO SCH ×2 (08:57→19:49)
[2022-11-27] MEDS: APIXABAN 5 MG TABLET PO SCH ×2 (08:57→19:49)
[2022-11-27] MEDS: PSYLLIUM or GUAR GUM FIBER POWDER PACKET PO SCH (08:58)
[2022-11-27] MEDS: DOCUSATE SODIUM 100 MG CAP PO SCH (08:58)
[2022-11-27] MEDS: METOPROLOL SUCC 50MG EXT REL TAB PO SCH (08:58)
[2022-11-27] MEDS: PANTOprazole 40 MG TAB PO SCH (08:58)
[2022-11-27] MEDS: dilTIAZem HCL 180 MG CAPCR PO SCH (08:58)
--- NOTE | 2022-11-27 12:31 | Hospitalist Progress Note ---
Date of Service November 27, 2022 Assessment & Plan (1) Physical deconditioning: Plan: At baseline, patient ambulates with a walker. [facility] to [facility] She worked with physical therapy here and they determined she will need SNF Plan is for SNF (2) Dementia: Plan: Dementia at baseline, it seems she has been slowly declining over the past several months Now, no longer able to go back to her H (3) Depression: Plan: Continue home medications (4) Afib: Plan: Rate is well controlled On Eliquis at home, continue. (5) Hypertension: Plan: Blood pressures under fair control Continue home medications. (6) Chronic kidney disease, stage III (moderate): Plan: Renal function at baseline Avoid nephrotoxic's (7) COPD exacerbation: Plan: Not in exacerbation Continue home medications. (8) DM w/o complication type II, uncontrolled: Plan: Blood glucose under fair control Continue insulin sliding scale Continue home medications. (9) S/P placement of cardiac pacemaker: Plan [place] to go back to her [facility] due to worsening dementia and deconditioning, will need SNF Admission and Anticipated Discharge Date Admission Date: November 25, 2022 Subjective patient seen and examined, pleasantly confused, no new complaints Review of Systems Review of Systems: Unreliable due to confusion Physical Exam Physical Exam: The patient is awake, alert confused HEENT--PERRL, EOMI, mucous membranes and oropharynx mildly dry Neck--supple. No JVD. No bruits. Thyroid normal, trachea midline, no adenopathy. Heart--normal S1 and S2. No murmurs, rubs or gallops. Lungs--clear bilaterally, no respiratory distress, no accessory muscle use. Abdomen--normal bowel sounds and soft. Mild epigastric and left sided abdominal pain Extremities--no cyanosis or clubbing. No edema. Dermatologic--normal skin turgor, normal color, no abnormal lymph nodes, no rash. Neurologic--cranial nerves II through XII grossly intact. Rheumatologic--normal range of motion. Psychiatric--normal affect. Results & Data Results & Data ([facility]) Vital Signs (Past 12 Hours) Vital Signs Temp Pulse Resp BP Pulse Ox O2 Del Method 11/27/22 07:18 98.1 F 64 16 153/67 H 95 Room Air PG Care Time/CCT Total # of Minutes Spent Total Time Spent with Patient: Total time spent is greater than 50% in coordination of care (as documented) at patient's floor/unit and/or counseling patient: Coding Level of Care Code 89738 SUB INP/OBS CARE 2/35MIN Diagnoses Physical deconditioning R53.81 Dementia F03.90 Depression F32.A Afib I48.91 Hypertension I10 Chronic kidney disease, stage III (moderate) N18.32 Chronic kidney disease stage 3 subtype: stage 3b (GFR 30-44) COPD exacerbation J44.1 DM 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
[2022-11-27] MEDS: LANTUS PER UNIT CHARGE SQ SCH (21:56)
[2022-11-28] MEDS: ISOSORBIDE MONO EXTENDED REL 30 MG TABCR PO SCH (08:11)
[2022-11-28] MEDS: CALCIUM 600MG + VIT D 400 IU TAB PO SCH (08:11)
[2022-11-28] MEDS: PANTOprazole 40 MG TAB PO SCH (08:11)
[2022-11-28] MEDS: OMEGA-3 (PURIFIED FISH OIL) 1 GM CAP PO SCH ×2 (08:11→20:14)
[2022-11-28] MEDS: APIXABAN 5 MG TABLET PO SCH ×2 (08:11→20:14)
[2022-11-28] MEDS: MULTIVITAMIN TAB PO SCH (08:12)
[2022-11-28] MEDS: DOCUSATE SODIUM 100 MG CAP PO SCH (08:12)
[2022-11-28] MEDS: ASPIRIN 81 MG ECTAB PO SCH (08:12)
[2022-11-28] MEDS: METOPROLOL SUCC 50MG EXT REL TAB PO SCH (08:12)
[2022-11-28] MEDS: LOSARTAN POTASSIUM 50 MG TAB PO SCH (08:13)
[2022-11-28] MEDS: FLUoxetine HCL 20 MG CAP PO SCH ×2 (08:13→20:14)
[2022-11-28] MEDS: dilTIAZem HCL 180 MG CAPCR PO SCH (08:13)
[2022-11-28] MEDS: FLUoxetine HCL 10 MG CAP PO SCH ×2 (08:13→20:13)
[2022-11-28] MEDS: PSYLLIUM or GUAR GUM FIBER POWDER PACKET PO SCH (08:14)
[2022-11-28] MEDS: UMECLIDINIUM BROMIDE 62.5MCG/BLISTER 7 PUFFS/INHALER INH SCH (11:07)
[2022-11-28] MEDS: FLUTICASONE/VILANTEROL 100/25MCG 14 PUFFS/INHALER INH SCH (11:08)
--- NOTE | 2022-11-28 12:41 | Hospitalist Progress Note ---
Date of Service November 28, 2022 Assessment & Plan (1) Physical deconditioning: Plan: At baseline, patient ambulates with a walker. Found to have become [facility] She worked with physical therapy here and they determined she will need SNF Plan is for SNF when accepted (2) Dementia: Plan: Dementia at baseline, it seems she has been slowly declining over the past several months Now, no longer able to go back to her H (3) Depression: Plan: Continue home medications (4) Afib: Plan: Rate is well controlled On Eliquis at home, continue. (5) Hypertension: Plan: Blood pressures under fair control Continue home medications. (6) Chronic kidney disease, stage III (moderate): Plan: Renal function at baseline Avoid nephrotoxic's (7) COPD exacerbation: Plan: Not in exacerbation Continue home medications. (8) DM w/o complication type II, uncontrolled: Plan: Blood glucose under fair control Continue insulin sliding scale Continue home medications. (9) S/P placement of cardiac pacemaker: Plan Unable to go back to her personal intermediate due to worsening dementia and deconditioning, will need SNF when accepted Admission and Anticipated Discharge Date Admission Date: November 25, 2022 Subjective patient seen and examined, pleasantly confused, anxious, no new complaints Review of Systems Review of Systems: Unreliable due to confusion Physical Exam Physical Exam: The patient is awake, alert confused HEENT--PERRL, EOMI, mucous membranes and oropharynx mildly dry Neck--supple. No JVD. No bruits. Thyroid normal, trachea midline, no adenopathy. Heart--normal S1 and S2. No murmurs, rubs or gallops. Lungs--clear bilaterally, no respiratory distress, no accessory muscle use. Abdomen--normal bowel sounds and soft. Mild epigastric and left sided abdominal pain Extremities--no cyanosis or clubbing. No edema. Dermatologic--normal skin turgor, normal color, no abnormal lymph nodes, no rash. Neurologic--cranial nerves II through XII grossly intact. Rheumatologic--normal range of motion. Psychiatric--normal affect. Results & Data Results & Data ([facility]) Vital Signs (Past 12 Hours) Vital Signs Temp Pulse Pulse Resp BP BP Pulse Ox 11/28/22 08:00 97.9 F 66 20 146/80 H 97 02/06/23 07:12 98.1 F 61 18 177/78 H 96 O2 Del Method 11/28/22 08:00 Room Air 11/28/22 07:12 Room Air PG Care Time/CCT Total # of Minutes Spent Total Time Spent with Patient: Total time spent is greater than 50% in coordination of care (as documented) at patient's floor/unit and/or counseling patient: Coding Level of Care Code 42356 SUB INP/OBS CARE 2/35MIN Diagnoses Physical deconditioning R53.81 Dementia F03.90 Depression F32.A Afib I48.91 Hypertension I10 Chronic kidney disease, stage III (moderate) N18.32 Chronic kidney disease stage 3 subtype: stage 3b (GFR 30-44) COPD exacerbation J44.1 DM w/o complication type II, uncontrolled E11.65 Glycemic state: with hyperglycemia S/P placement of cardiac pacemaker Z95.0 Time Spent (min) 35 (1) Chronic kidney disease, stage III (moderate) Chronic kidney disease stage 3 subtype: stage 3b (GFR 30-44) Qualified Code(s): N18.32 - Chronic kidney disease, stage 3b (2) DM 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
[2022-11-28] MEDS: LANTUS PER UNIT CHARGE SQ SCH (20:21)
[2022-11-29] MEDS: ASPIRIN 81 MG ECTAB PO SCH (08:21)
[2022-11-29] MEDS: FLUoxetine HCL 20 MG CAP PO SCH ×3 (08:21→21:50)
[2022-11-29] MEDS: DOCUSATE SODIUM 100 MG CAP PO SCH (08:21)
[2022-11-29] MEDS: MULTIVITAMIN TAB PO SCH (08:21)
[2022-11-29] MEDS: APIXABAN 5 MG TABLET PO SCH ×3 (08:21→21:50)
[2022-11-29] MEDS: ISOSORBIDE MONO EXTENDED REL 30 MG TABCR PO SCH (08:21)
[2022-11-29] MEDS: PSYLLIUM or GUAR GUM FIBER POWDER PACKET PO SCH (08:21)
[2022-11-29] MEDS: PANTOprazole 40 MG TAB PO SCH (08:21)
[2022-11-29] MEDS: dilTIAZem HCL 180 MG CAPCR PO SCH (08:22)
[2022-11-29] MEDS: UMECLIDINIUM BROMIDE 62.5MCG/BLISTER 7 PUFFS/INHALER INH SCH (08:22)
[2022-11-29] MEDS: METOPROLOL SUCC 50MG EXT REL TAB PO SCH (08:22)
[2022-11-29] MEDS: CALCIUM 600MG + VIT D 400 IU TAB PO SCH (08:22)
[2022-11-29] MEDS: FLUTICASONE/VILANTEROL 100/25MCG 14 PUFFS/INHALER INH SCH (08:22)
[2022-11-29] MEDS: OMEGA-3 (PURIFIED FISH OIL) 1 GM CAP PO SCH ×3 (08:22→21:50)
[2022-11-29] MEDS: FLUoxetine HCL 10 MG CAP PO SCH ×3 (08:22→21:50)
[2022-11-29] MEDS: LOSARTAN POTASSIUM 50 MG TAB PO SCH (08:22)
[2022-11-29 09:56] LABS: Hemoglobin 12.4 g/dl (12.0-16.0); Mean Corpuscular Hemoglobin 30.2 pg (25.0-34.0); Mean Corpuscular Hgb Conc 33.5 g/dL (32.0-36.0); Mean Corpuscular Volume 90.2 fL (80.0-100.0); Mean Platelet Volume 9.2 fL (9.4-12.4); Platelet Count 238 K/uL (130-400); RDW Coefficient of Variation 13.9 % (11.5-14.5); RDW Standard Deviation 45.8 fL (36.4-46.3); White Blood Count 7.85 K/ul (4.8-10.8)
[2022-11-29 10:05] LABS: BUN Creatinine Ratio 10.5 (10-20); Calcium 10.1 mg/dl (8.5-10.1); Creatinine Clr Calc Pharmacy 28.2 ml/min; Est GFR (African American) 44.6 ml/min; Est GFR (Non-African American) 38.5 ml/min; Potassium 3.8 mmol/L (3.5-5.1)
--- NOTE | 2022-11-29 13:48 | Hospitalist Progress Note ---
Date of Service November 29, 2022 Assessment & Plan (1) Physical deconditioning: Plan: Increasing physical debility likely due to progressing dementia At baseline, patient ambulates with a walker. Found to have become [facility] She worked with physical therapy here and they determined she will need SNF Plan is for SNF when accepted (2) Dementia: Plan: Dementia at baseline, it seems she has been slowly declining over the past several months Now, no longer able to go back to her [facility] (3) Depression: Plan: Continue home medications (4) Afib: Plan: Rate is well controlled On Eliquis at home, continue. (5) Hypertension: Plan: Blood pressures under fair control Continue home medications. (6) Chronic kidney disease, stage III (moderate): Plan: Renal function at baseline Avoid nephrotoxic's (7) COPD exacerbation: Plan: Not in exacerbation Continue home medications. (8) DM w/o complication type II, uncontrolled: Plan: Blood glucose under fair control Continue insulin sliding scale Continue home medications. (9) S/P placement of cardiac pacemaker: Plan Unable to go back to her [facility] due to worsening dementia and deconditioning, will need SNF when accepted Admission and Anticipated Discharge Date Admission Date: November 25, 2022 Subjective patient seen and examined, pleasantly confused, anxious, no new complaints today Review of Systems Review of Systems: Unreliable due to confusion Physical Exam Physical Exam: The patient is awake, alert confused HEENT--PERRL, EOMI, mucous membranes and oropharynx mildly dry Neck--supple. No JVD. No bruits. Thyroid normal, trachea midline, no adenopathy. Heart--normal S1 and S2. No murmurs, rubs or gallops. Lungs--clear bilaterally, no respiratory distress, no accessory muscle use. Abdomen--normal bowel sounds and soft. Mild epigastric and left sided abdominal pain Extremities--no cyanosis or clubbing. No edema. Dermatologic--normal skin turgor, normal color, no abnormal lymph nodes, no rash. Neurologic--cranial nerves II through XII grossly intact. Rheumatologic--normal range of motion. Psychiatric--normal affect. Results & Data Results & Data ([facility]) Vital Signs (Past 12 Hours) Vital Signs Temp Pulse Resp BP Pulse Ox O2 Del Method 11/29/22 08:35 Room Air 11/29/22 07:26 98.4 F 64 18 172/68 H 93 Room Air PG Care Time/CCT Total # of Minutes Spent Total Time Spent with Patient: Total time spent is greater than 50% in coordination of care (as documented) at patient's floor/unit and/or counseling patient: Coding Level of Care Code 75929 SUB INP/OBS CARE 2/35MIN Diagnoses Physical deconditioning R53.81 Dementia F03.90 Depression F32.A Afib I48.91 Hypertension I10 Chronic kidney disease, stage III (moderate) N18.32 Chronic kidney disease stage 3 subtype: stage 3b (GFR 30-44) COPD exacerbation J44.1 DM w/o complication type II, uncontrolled E11.65 Glycemic state: with hyperglycemia S/P placement of cardiac pacemaker Z95.0 Time Spent (min) 35 (1) Chronic kidney disease, stage III (moderate) Chronic kidney disease stage 3 subtype: stage 3b (GFR 30-44) Qualified Code(s): N18.32 - Chronic kidney disease, stage 3b (2) DM 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
[2022-11-29] MEDS: cloNIDine HCL 0.1 MG TAB PO SCH (16:28)
[2022-11-29] MEDS: LANTUS PER UNIT CHARGE SQ SCH (20:58)
[2022-11-29] MEDS: INSULIN ASPART PER UNIT SC SCH (20:58)
[2022-11-29] MEDS ORDERED: Nursing to Pharmacy Communication SCH (21:15)
[2022-11-30] MEDS: PSYLLIUM or GUAR GUM FIBER POWDER PACKET PO SCH (08:18)
[2022-11-30] MEDS: cloNIDine HCL 0.1 MG TAB PO SCH ×2 (08:20→20:57)
[2022-11-30] MEDS: APIXABAN 5 MG TABLET PO SCH ×2 (08:20→20:56)
[2022-11-30] MEDS: OMEGA-3 (PURIFIED FISH OIL) 1 GM CAP PO SCH ×2 (08:20→20:56)
[2022-11-30] MEDS: LOSARTAN POTASSIUM 50 MG TAB PO SCH (08:21)
[2022-11-30] MEDS: FLUoxetine HCL 10 MG CAP PO SCH ×2 (08:21→20:55)
[2022-11-30] MEDS: ASPIRIN 81 MG ECTAB PO SCH (08:21)
[2022-11-30] MEDS: MULTIVITAMIN TAB PO SCH (08:21)
[2022-11-30] MEDS: ISOSORBIDE MONO EXTENDED REL 30 MG TABCR PO SCH (08:21)
[2022-11-30] MEDS: DOCUSATE SODIUM 100 MG CAP PO SCH (08:21)
[2022-11-30] MEDS: dilTIAZem HCL 180 MG CAPCR PO SCH (08:21)
[2022-11-30] MEDS: METOPROLOL SUCC 50MG EXT REL TAB PO SCH (08:21)
[2022-11-30] MEDS: FLUoxetine HCL 20 MG CAP PO SCH ×2 (08:22→20:56)
[2022-11-30] MEDS: CALCIUM 600MG + VIT D 400 IU TAB PO SCH (08:22)
[2022-11-30] MEDS: UMECLIDINIUM BROMIDE 62.5MCG/BLISTER 7 PUFFS/INHALER INH SCH (08:22)
[2022-11-30] MEDS: FLUTICASONE/VILANTEROL 100/25MCG 14 PUFFS/INHALER INH SCH (08:22)
[2022-11-30] MEDS: PANTOprazole 40 MG TAB PO SCH (08:22)
[2022-11-30] MEDS: INSULIN ASPART PER UNIT SC SCH ×4 (09:19→20:52)
--- NOTE | 2022-11-30 13:49 | Hospitalist Progress Note ---
Date of Service November 30, 2022 Assessment & Plan (1) Physical deconditioning: Plan: Increasing physical debility likely due to progressing dementia At baseline, patient ambulates with a walker. Found to have become weaker at her personal shelter She worked with physical therapy here and they determined she will need SNF Plan is for SNF when accepted (2) Dementia: Plan: Dementia at baseline, it seems she has been slowly declining over the past several months Now, no longer able to go back to her [facility] (3) Depression: Plan: Continue home medications (4) Afib: Plan: Rate is well controlled On Eliquis at home, continue. (5) Hypertension: Plan: Blood pressures under fair control Continue home medications. (6) Chronic kidney disease, stage III (moderate): Plan: Renal function at baseline Avoid nephrotoxic's (7) COPD exacerbation: Plan: Not in exacerbation Continue home medications. (8) DM w/o complication type II, uncontrolled: Plan: Blood glucose under fair control Continue insulin sliding scale Continue home medications. (9) S/P placement of cardiac pacemaker: Plan Unable to go back to her personal shelter due to worsening dementia and deconditioning, will need SNF when accepted Admission and Anticipated Discharge Date Admission Date: November 25, 2022 Subjective patient seen and examined, pleasantly confused, no new complaints today, tolerating diet Review of Systems Review of Systems: Unreliable due to confusion Physical Exam Physical Exam: The patient is awake, alert confused HEENT--PERRL, EOMI, mucous membranes and oropharynx mildly dry Neck--supple. No JVD. No bruits. Thyroid normal, trachea midline, no adenopathy. Heart--normal S1 and S2. No murmurs, rubs or gallops. Lungs--clear bilaterally, no respiratory distress, no accessory muscle use. Abdomen--normal bowel sounds and soft. Mild epigastric and left sided abdominal pain Extremities--no cyanosis or clubbing. No edema. Dermatologic--normal skin turgor, normal color, no abnormal lymph nodes, no rash. Neurologic--cranial nerves II through XII grossly intact. Rheumatologic--normal range of motion. Psychiatric--normal affect. Results & Data Results & Data ([facility]) Vital Signs (Past 12 Hours) Vital Signs Temp Pulse Resp BP Pulse Ox O2 Del Method 11/30/22 07:24 97.7 F 74 16 183/81 H 93 Room Air PG Care Time/CCT Total # of Minutes Spent Total Time Spent with Patient: Total time spent is greater than 50% in coordination of care (as documented) at patient's floor/unit and/or counseling patient: Coding Level of Care Code 33010 SUB INP/OBS CARE 2/35MIN Diagnoses Physical deconditioning R53.81 Dementia F03.90 Depression F32.A Afib I48.91 Hypertension I10 Chronic kidney disease, stage III (moderate) N18.32 Chronic kidney disease stage 3 subtype: stage 3b (GFR 30-44) COPD exacerbation J44.1 DM w/o complication type II, uncontrolled E11.65 Glycemic state: with hyperglycemia S/P placement of cardiac pacemaker Z95.0 Time Spent (min) 35 (1) Chronic kidney disease, stage III (moderate) Chronic kidney disease stage 3 subtype: stage 3b (GFR 30-44) Qualified Code(s): N18.32 - Chronic kidney disease, stage 3b (2) DM 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
[2022-11-30] MEDS: LANTUS PER UNIT CHARGE SQ SCH (20:52)
[2022-12-01] MEDS: INSULIN ASPART PER UNIT SC SCH ×5 (08:56→20:54)
[2022-12-01] MEDS: dilTIAZem HCL 180 MG CAPCR PO SCH (08:58)
[2022-12-01] MEDS: PSYLLIUM or GUAR GUM FIBER POWDER PACKET PO SCH (08:58)
[2022-12-01] MEDS: CALCIUM 600MG + VIT D 400 IU TAB PO SCH (08:59)
[2022-12-01] MEDS: APIXABAN 5 MG TABLET PO SCH ×2 (08:59→22:18)
[2022-12-01] MEDS: METOPROLOL SUCC 50MG EXT REL TAB PO SCH (08:59)
[2022-12-01] MEDS: FLUTICASONE/VILANTEROL 100/25MCG 14 PUFFS/INHALER INH SCH (08:59)
[2022-12-01] MEDS: ISOSORBIDE MONO EXTENDED REL 30 MG TABCR PO SCH (08:59)
[2022-12-01] MEDS: UMECLIDINIUM BROMIDE 62.5MCG/BLISTER 7 PUFFS/INHALER INH SCH (08:59)
[2022-12-01] MEDS: FLUoxetine HCL 10 MG CAP PO SCH ×2 (09:00→22:18)
[2022-12-01] MEDS: OMEGA-3 (PURIFIED FISH OIL) 1 GM CAP PO SCH ×2 (09:00→22:18)
[2022-12-01] MEDS: ASPIRIN 81 MG ECTAB PO SCH (09:00)
[2022-12-01] MEDS: cloNIDine HCL 0.1 MG TAB PO SCH ×2 (09:00→22:18)
[2022-12-01] MEDS: FLUoxetine HCL 20 MG CAP PO SCH ×2 (09:00→22:18)
[2022-12-01] MEDS: DOCUSATE SODIUM 100 MG CAP PO SCH (09:00)
[2022-12-01] MEDS: PANTOprazole 40 MG TAB PO SCH (09:01)
[2022-12-01] MEDS: LOSARTAN POTASSIUM 50 MG TAB PO SCH (09:01)
[2022-12-01] MEDS: MULTIVITAMIN TAB PO SCH (09:01)
--- NOTE | 2022-12-01 12:33 | Hospitalist Progress Note ---
Date of Service December 01, 2022 Assessment & Plan (1) Physical deconditioning: Plan: Increasing physical debility likely due to progressing dementia At baseline, patient ambulates with a walker. Found to have become weaker at her personal [facility] She worked with physical therapy here and they determined she will need SNF Plan is for SNF when accepted (2) Dementia: Plan: Dementia at baseline, it seems she has been slowly declining over the past several months Now, no longer able to go back to her [facility] (3) Depression: Plan: Continue home medications (4) Afib: Plan: Rate is well controlled On Eliquis at home, continue. (5) Hypertension: Plan: Blood pressures under fair control Continue home medications. (6) Chronic kidney disease, stage III (moderate): Plan: Renal function at baseline Avoid nephrotoxic's (7) COPD exacerbation: Plan: Not in exacerbation Continue home medications. (8) DM w/o complication type II, uncontrolled: Plan: Blood glucose under fair control Continue insulin sliding scale Continue home medications. (9) S/P placement of cardiac pacemaker: Plan Unable to go back to her personal correction due to worsening dementia and deconditioning, has been accepted at [facility] pending Admission and Anticipated Discharge Date Admission Date: November 25, 2022 Subjective patient seen and examined, pleasantly confused, no new complaints today, tolerating diet, has been accepted at [facility] pending Review of Systems Review of Systems: Unreliable due to confusion Physical Exam Physical Exam: The patient is awake, alert confused HEENT--PERRL, EOMI, mucous membranes and oropharynx mildly dry Neck--supple. No JVD. No bruits. Thyroid normal, trachea midline, no adenopathy. Heart--normal S1 and S2. No murmurs, rubs or gallops. Lungs--clear bilaterally, no respiratory distress, no accessory muscle use. Abdomen--normal bowel sounds and soft. Mild epigastric and left sided abdominal pain Extremities--no cyanosis or clubbing. No edema. Dermatologic--normal skin turgor, normal color, no abnormal lymph nodes, no rash. Neurologic--cranial nerves II through XII grossly intact. Rheumatologic--normal range of motion. Psychiatric--normal affect. Results & Data Results & Data ([facility]) Vital Signs (Past 12 Hours) Vital Signs Temp Pulse Resp BP Pulse Ox O2 Del Method 12/01/22 07:25 97.9 F 67 17 147/56 H 96 Room Air PG Care Time/CCT Total # of Minutes Spent Total Time Spent with Patient: Total time spent is greater than 50% in coordination of care (as documented) at patient's floor/unit and/or counseling patient: Coding Level of Care Code 47444 SUB INP/OBS CARE 2/35MIN Diagnoses Physical deconditioning R53.81 Dementia F03.90 Depression F32.A Afib I48.91 Hypertension I10 Chronic kidney disease, stage III (moderate) N18.32 Chronic kidney disease stage 3 subtype: stage 3b (GFR 30-44) COPD exacerbation J44.1 DM w/o complication type II, uncontrolled E11.65 Glycemic state: with hyperglycemia S/P placement of cardiac pacemaker Z95.0 Time Spent (min) 35 (1) Chronic kidney disease, stage III (moderate) Chronic kidney disease stage 3 subtype: stage 3b (GFR 30-44) Qualified Code(s): N18.32 - Chronic kidney disease, stage 3b (2) DM 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
[2022-12-01] MEDS: LANTUS PER UNIT CHARGE SQ SCH (22:18)
[2022-12-02 07:34] LABS: Hematocrit (blood only) 33.2 % (37.0-47.0); Hemoglobin 11.5 g/dl (12.0-16.0); Mean Corpuscular Hemoglobin 30.2 pg (25.0-34.0); Mean Corpuscular Hgb Conc 34.6 g/dL (32.0-36.0); Mean Corpuscular Volume 87.1 fL (80.0-100.0); Mean Platelet Volume 9.7 fL (9.4-12.4); Platelet Count 245 K/uL (130-400); RDW Coefficient of Variation 13.7 % (11.5-14.5); RDW Standard Deviation 43.7 fL (36.4-46.3); Red Blood Count 3.81 M/uL (4.20-5.40); White Blood Count 7.33 K/ul (4.8-10.8)
[2022-12-02 07:51] LABS: Calcium 9.2 mg/dl (8.5-10.1); Potassium 3.8 mmol/L (3.5-5.1)
[2022-12-02] MEDS: FLUoxetine HCL 20 MG CAP PO SCH (07:56)
[2022-12-02] MEDS: OMEGA-3 (PURIFIED FISH OIL) 1 GM CAP PO SCH ×2 (07:56→20:32)
[2022-12-02 07:57] LABS: BUN Creatinine Ratio 16.9 (10-20); Creatinine Clr Calc Pharmacy 25.7 ml/min; Est GFR (African American) 39.9 ml/min; Est GFR (Non-African American) 34.4 ml/min
[2022-12-02] MEDS: DOCUSATE SODIUM 100 MG CAP PO SCH (07:57)
[2022-12-02] MEDS: FLUoxetine HCL 10 MG CAP PO SCH ×2 (07:57→20:33)
[2022-12-02] MEDS: MULTIVITAMIN TAB PO SCH (07:57)
[2022-12-02] MEDS: ASPIRIN 81 MG ECTAB PO SCH (07:57)
[2022-12-02] MEDS: dilTIAZem HCL 180 MG CAPCR PO SCH (07:57)
[2022-12-02] MEDS: APIXABAN 5 MG TABLET PO SCH ×2 (07:57→20:31)
[2022-12-02] MEDS: ISOSORBIDE MONO EXTENDED REL 30 MG TABCR PO SCH (07:57)
[2022-12-02] MEDS: CALCIUM 600MG + VIT D 400 IU TAB PO SCH (07:58)
[2022-12-02] MEDS: METOPROLOL SUCC 50MG EXT REL TAB PO SCH (07:58)
[2022-12-02] MEDS: PSYLLIUM or GUAR GUM FIBER POWDER PACKET PO SCH (07:58)
[2022-12-02] MEDS: PANTOprazole 40 MG TAB PO SCH (07:58)
[2022-12-02] MEDS: LOSARTAN POTASSIUM 50 MG TAB PO SCH (07:58)
[2022-12-02] MEDS: FLUTICASONE/VILANTEROL 100/25MCG 14 PUFFS/INHALER INH SCH (07:59)
[2022-12-02] MEDS: cloNIDine HCL 0.1 MG TAB PO SCH ×2 (07:59→20:32)
[2022-12-02] MEDS: UMECLIDINIUM BROMIDE 62.5MCG/BLISTER 7 PUFFS/INHALER INH SCH (07:59)
[2022-12-02] MEDS: INSULIN ASPART PER UNIT SC SCH ×4 (08:23→20:44)
--- NOTE | 2022-12-02 12:57 | Hospitalist Progress Note ---
Date of Service December 02, 2022 Assessment & Plan (1) Physical deconditioning: Plan: Increasing physical debility likely due to progressing dementia At baseline, patient ambulates with a walker. Found to have become weaker at her personal assisted She worked with physical therapy here and they determined she will need SNF Plan is for SNF when accepted (2) Dementia: Plan: Dementia at baseline, it seems she has been slowly declining over the past several months Now, no longer able to go back to her [facility] (3) Depression: Plan: Continue home medications Per [facility] records, she takes Fluoxetine 10mg BID, but when' depressed', she takes an additional 20mg (4) Afib: Plan: Rate is well controlled On Eliquis at home, continue. (5) Hypertension: Plan: Blood pressures under fair control Continue home medications. (6) Chronic kidney disease, stage III (moderate): Plan: Renal function at baseline Avoid nephrotoxic's (7) COPD exacerbation: Plan: Not in exacerbation Continue home medications. (8) DM w/o complication type II, uncontrolled: Plan: Blood glucose under fair control Continue insulin sliding scale Continue home medications. (9) S/P placement of cardiac pacemaker: Plan Unable to go back to her personal assisted due to worsening dementia and deconditioning, has been accepted at [facility] pending Admission and Anticipated Discharge Date Admission Date: November 25, 2022 Subjective patient seen and examined, pleasantly confused, no new complaints today, tolerating diet, has been accepted at [facility] pending, working with PT Review of Systems Review of Systems: Unreliable due to confusion Physical Exam Physical Exam: The patient is awake, alert confused HEENT--PERRL, EOMI, mucous membranes and oropharynx mildly dry Neck--supple. No JVD. No bruits. Thyroid normal, trachea midline, no adenopathy. Heart--normal S1 and S2. No murmurs, rubs or gallops. Lungs--clear bilaterally, no respiratory distress, no accessory muscle use. Abdomen--normal bowel sounds and soft. Mild epigastric and left sided abdominal pain Extremities--no cyanosis or clubbing. No edema. Dermatologic--normal skin turgor, normal color, no abnormal lymph nodes, no rash. Neurologic--cranial nerves II through XII grossly intact. Rheumatologic--normal range of motion. Psychiatric--normal affect. Results & Data Results & Data ([facility]) Vital Signs (Past 12 Hours) Vital Signs Temp Pulse Resp BP Pulse Ox O2 Del Method 12/02/22 07:52 98.2 F 65 14 121/75 95 Room Air PG Care Time/CCT Total # of Minutes Spent Total Time Spent with Patient: Total time spent is greater than 50% in coordination of care (as documented) at patient's floor/unit and/or counseling patient: Coding Level of Care Code 30296 SUB INP/OBS CARE 2/35MIN Diagnoses Physical deconditioning R53.81 Dementia F03.90 Depression F32.A Afib I48.91 Hypertension I10 Chronic kidney disease, stage III (moderate) N18.32 Chronic kidney disease stage 3 subtype: stage 3b (GFR 30-44) COPD exacerbation J44.1 DM w/o complication type II, uncontrolled E11.65 Glycemic state: with hyperglycemia S/P placement of cardiac pacemaker Z95.0 Time Spent (min) 35 (1) Chronic kidney disease, stage III (moderate) Chronic kidney disease stage 3 subtype: stage 3b (GFR 30-44) Qualified Code(s): N18.32 - Chronic kidney disease, stage 3b (2) DM 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
[2022-12-02] MEDS: LANTUS PER UNIT CHARGE SQ SCH (20:43)
[2022-12-03] MEDS: FLUoxetine HCL 10 MG CAP PO SCH ×2 (08:38→21:12)
[2022-12-03] MEDS: MULTIVITAMIN TAB PO SCH (08:38)
[2022-12-03] MEDS: PANTOprazole 40 MG TAB PO SCH (08:38)
[2022-12-03] MEDS: PSYLLIUM or GUAR GUM FIBER POWDER PACKET PO SCH (08:39)
[2022-12-03] MEDS: DOCUSATE SODIUM 100 MG CAP PO SCH (08:39)
[2022-12-03] MEDS: ISOSORBIDE MONO EXTENDED REL 30 MG TABCR PO SCH (08:39)
[2022-12-03] MEDS: LOSARTAN POTASSIUM 50 MG TAB PO SCH (08:39)
[2022-12-03] MEDS: dilTIAZem HCL 180 MG CAPCR PO SCH (08:40)
[2022-12-03] MEDS: METOPROLOL SUCC 50MG EXT REL TAB PO SCH (08:40)
[2022-12-03] MEDS: OMEGA-3 (PURIFIED FISH OIL) 1 GM CAP PO SCH ×2 (08:40→21:11)
[2022-12-03] MEDS: CALCIUM 600MG + VIT D 400 IU TAB PO SCH (08:40)
[2022-12-03] MEDS: cloNIDine HCL 0.1 MG TAB PO SCH ×2 (08:40→21:11)
[2022-12-03] MEDS: APIXABAN 5 MG TABLET PO SCH ×2 (08:41→21:11)
[2022-12-03] MEDS: ASPIRIN 81 MG ECTAB PO SCH (08:44)
[2022-12-03] MEDS: INSULIN ASPART PER UNIT SC SCH ×4 (10:01→21:13)
[2022-12-03] MEDS: UMECLIDINIUM BROMIDE 62.5MCG/BLISTER 7 PUFFS/INHALER INH SCH (10:46)
[2022-12-03] MEDS: FLUTICASONE/VILANTEROL 100/25MCG 14 PUFFS/INHALER INH SCH (10:46)
--- NOTE | 2022-12-03 13:22 | Hospitalist Progress Note ---
Date of Service December 03, 2022 Assessment & Plan (1) Physical deconditioning: Plan: Increasing physical debility likely due to progressing dementia At baseline, patient ambulates with a walker. Found to have become weaker [place] her [place] She worked with physical therapy here and they determined she will need SNF Plan is for SNF when accepted, after peer to peer today, insurance has approved (2) Dementia: Plan: Dementia at baseline, it seems she has been slowly declining over the past several months Now, no longer able to go back to her [facility] (3) Depression: Plan: Continue home medications Per [facility] records, she takes Fluoxetine 10mg BID, but when' depressed', she takes an additional 20mg (4) Afib: Plan: Rate is well controlled On Eliquis at home, continue. (5) Hypertension: Plan: Blood pressures under fair control Continue home medications. (6) Chronic kidney disease, stage III (moderate): Plan: Renal function at baseline Avoid nephrotoxic's (7) COPD exacerbation: Plan: Not in exacerbation Continue home medications. (8) DM w/o complication type II, uncontrolled: Plan: Blood glucose under fair control Continue insulin sliding scale Continue home medications. (9) S/P placement of cardiac pacemaker: Plan after peer to peer today, insurance has approved Admission and Anticipated Discharge Date Admission Date: November 25, 2022 Subjective patient seen and examined, pleasantly confused, no new complaints today, tolerating diet, has been accepted at [facility], after peer to peer today, insurance has approved Review of Systems Review of Systems: Unreliable due to confusion Physical Exam Physical Exam: The patient is awake, alert confused HEENT--PERRL, EOMI, mucous membranes and oropharynx mildly dry Neck--supple. No JVD. No bruits. Thyroid normal, trachea midline, no a denopathy. Heart--normal S1 and S2. No murmurs, rubs or gallops. Lungs--clear bilaterally, no respiratory distress, no accessory muscle use. Abdomen--normal bowel sounds and soft. Mild epigastric and left sided abdominal pain Extremities--no cyanosis or clubbing. No edema. Dermatologic--normal skin turgor, normal color, no abnormal lymph nodes, no rash. Neurologic--cranial nerves II through XII grossly intact. Rheumatologic--normal range of motion. Psychiatric--normal affect. Results & Data Results & Data ([facility]) Vital Signs (Past 12 Hours) Vital Signs Temp Pulse Resp BP BP Pulse Ox O2 Del Method 12/03/22 07:56 98.1 F 69 18 168/88 H 175/81 H 96 Room Air PG Care Time/CCT Total # of Minutes Spent Total Time Spent with Patient: Total time spent is greater than 50% in coordination of care (as documented) at patient's floor/unit and/or counseling patient: Coding Level of Care Code 25640 SUB INP/OBS CARE 2/35MIN Diagnoses Physical deconditioning R53.81 Dementia F03.90 Depression F32.A Afib I48.91 Hypertension I10 Chronic kidney disease, stage III (moderate) N18.32 Chronic kidney disease stage 3 subtype: stage 3b (GFR 30-44) COPD exacerbation J44.1 DM w/o complication type II, uncontrolled E11.65 Glycemic state: with hyperglycemia S/P placement of cardiac pacemaker Z95.0 Time Spent (min) 35 (1) Chronic kidney disease, stage III (moderate) Chronic kidney disease stage 3 subtype: stage 3b (GFR 30-44) Qualified Code(s): N18.32 - Chronic kidney disease, stage 3b (2) DM 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
[2022-12-03] MEDS: LANTUS PER UNIT CHARGE SQ SCH (21:12)
[2022-12-04] MEDS: DOCUSATE SODIUM 100 MG CAP PO SCH (08:11)
[2022-12-04] MEDS: LOSARTAN POTASSIUM 50 MG TAB PO SCH (08:11)
[2022-12-04] MEDS: OMEGA-3 (PURIFIED FISH OIL) 1 GM CAP PO SCH ×2 (08:11→20:57)
[2022-12-04] MEDS: CALCIUM 600MG + VIT D 400 IU TAB PO SCH (08:11)
[2022-12-04] MEDS: cloNIDine HCL 0.1 MG TAB PO SCH ×2 (08:11→20:56)
[2022-12-04] MEDS: ASPIRIN 81 MG ECTAB PO SCH (08:11)
[2022-12-04] MEDS: ISOSORBIDE MONO EXTENDED REL 30 MG TABCR PO SCH (08:11)
[2022-12-04] MEDS: APIXABAN 5 MG TABLET PO SCH ×2 (08:11→20:57)
[2022-12-04] MEDS: dilTIAZem HCL 180 MG CAPCR PO SCH (08:11)
[2022-12-04] MEDS: METOPROLOL SUCC 50MG EXT REL TAB PO SCH (08:11)
[2022-12-04] MEDS: UMECLIDINIUM BROMIDE 62.5MCG/BLISTER 7 PUFFS/INHALER INH SCH (08:12)
[2022-12-04] MEDS: MULTIVITAMIN TAB PO SCH (08:12)
[2022-12-04] MEDS: PANTOprazole 40 MG TAB PO SCH (08:12)
[2022-12-04] MEDS: PSYLLIUM or GUAR GUM FIBER POWDER PACKET PO SCH (08:12)
[2022-12-04] MEDS: FLUTICASONE/VILANTEROL 100/25MCG 14 PUFFS/INHALER INH SCH (08:12)
[2022-12-04] MEDS: FLUoxetine HCL 10 MG CAP PO SCH ×2 (08:13→20:57)
[2022-12-04] MEDS: INSULIN ASPART PER UNIT SC SCH ×4 (09:21→21:03)
--- NOTE | 2022-12-04 12:27 | Hospitalist Progress Note ---
Date of Service December 04, 2022 Assessment & Plan (1) Physical deconditioning: Plan: Increasing physical debility likely due to progressing dementia At baseline, patient ambulates with a walker. Found to have become weaker at her personal snf She worked with physical therapy here and they determined she will need SNF Plan is for SNF when accepted, after peer to peer today, insurance has approved (2) Dementia: Plan: Dementia at baseline, it seems she has been slowly declining over the past several months Now, no longer able to go back to her [facility] (3) Depression: Plan: Continue home medications Per [facility] records, she takes Fluoxetine 10mg BID, but when' depressed', she takes an additional 20mg (4) Afib: Plan: Rate is well controlled On Eliquis at home, continue. (5) Hypertension: Plan: Blood pressures under fair control Continue home medications. (6) Chronic kidney disease, stage III (moderate): Plan: Renal function at baseline Avoid nephrotoxic's (7) COPD exacerbation: Plan: Not in exacerbation Continue home medications. (8) DM w/o complication type II, uncontrolled: Plan: Blood glucose under fair control Continue insulin sliding scale Continue home medications. (9) S/P placement of cardiac pacemaker: Plan after peer to peer today, insurance has approved Admission and Anticipated Discharge Date Admission Date: November 25, 2022 Subjective patient seen and examined, pleasantly confused, no new complaints today, tolerating diet, has been accepted at [facility], after peer to peer today, insurance has approved Review of Systems Review of Systems: Unreliable due to confusion Physical Exam Physical Exam: The patient is awake, alert confused HEENT--PERRL, EOMI, mucous membranes and oropharynx mildly dry Neck--supple. No JVD. No bruits. Thyroid normal, trachea midline, no a denopathy. Heart--normal S1 and S2. No murmurs, rubs or gallops. Lungs--clear bilaterally, no respiratory distress, no accessory muscle use. Abdomen--normal bowel sounds and soft. Mild epigastric and left sided abdominal pain Extremities--no cyanosis or clubbing. No edema. Dermatologic--normal skin turgor, normal color, no abnormal lymph nodes, no rash. Neurologic--cranial nerves II through XII grossly intact. Rheumatologic--normal range of motion. Psychiatric--normal affect. Results & Data Results & Data ([facility]) Vital Signs (Past 12 Hours) Vital Signs Temp Pulse Resp BP Pulse Ox O2 Del Method 12/04/22 07:50 97.7 F 61 18 172/74 H 99 Room Air PG Care Time/CCT Total # of Minutes Spent Total Time Spent with Patient: Total time spent is greater than 50% in coordination of care (as documented) at patient's floor/unit and/or counseling patient: Coding Level of Care Code 65112 SUB INP/OBS CARE 2/35MIN Diagnoses Physical deconditioning R53.81 Dementia F03.90 Depression F32.A Afib I48.91 Hypertension I10 Chronic kidney disease, stage III (moderate) N18.32 Chronic kidney disease stage 3 subtype: stage 3b (GFR 30-44) COPD exacerbation J44.1 DM w/o complication type II, uncontrolled E11.65 Glycemic state: with hyperglycemia S/P placement of cardiac pacemaker Z95.0 Time Spent (min) 35 (1) Chronic kidney disease, stage III (moderate) Chronic kidney disease stage 3 subtype: stage 3b (GFR 30-44) Qualified Code(s): N18.32 - Chronic kidney disease, stage 3b (2) DM 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
[2022-12-04] MEDS: LANTUS PER UNIT CHARGE SQ SCH (21:03)
[2022-12-05 07:21] LABS: Hematocrit (blood only) 33.5 % (37.0-47.0); Hemoglobin 11.3 g/dl (12.0-16.0); Mean Corpuscular Hemoglobin 29.8 pg (25.0-34.0); Mean Corpuscular Hgb Conc 33.7 g/dL (32.0-36.0); Mean Corpuscular Volume 88.4 fL (80.0-100.0); Mean Platelet Volume 9.4 fL (9.4-12.4); Platelet Count 258 K/uL (130-400); RDW Coefficient of Variation 13.7 % (11.5-14.5); RDW Standard Deviation 43.9 fL (36.4-46.3); Red Blood Count 3.79 M/uL (4.20-5.40); White Blood Count 6.14 K/ul (4.8-10.8)
[2022-12-05 07:32] LABS: BUN Creatinine Ratio 10.9 (10-20); Calcium 9.2 mg/dl (8.5-10.1); Creatinine Clr Calc Pharmacy 27.3 ml/min; Est GFR (African American) 42.9 ml/min
[2022-12-05] MEDS: LOSARTAN POTASSIUM 50 MG TAB PO SCH (07:57)
[2022-12-05] MEDS: ISOSORBIDE MONO EXTENDED REL 30 MG TABCR PO SCH (07:57)
[2022-12-05] MEDS: cloNIDine HCL 0.1 MG TAB PO SCH ×2 (07:57→20:10)
[2022-12-05] MEDS: ASPIRIN 81 MG ECTAB PO SCH (07:57)
[2022-12-05] MEDS: OMEGA-3 (PURIFIED FISH OIL) 1 GM CAP PO SCH ×2 (07:57→20:11)
[2022-12-05] MEDS: PSYLLIUM or GUAR GUM FIBER POWDER PACKET PO SCH (07:57)
[2022-12-05] MEDS: DOCUSATE SODIUM 100 MG CAP PO SCH (07:58)
[2022-12-05] MEDS: dilTIAZem HCL 180 MG CAPCR PO SCH (07:58)
[2022-12-05] MEDS: FLUoxetine HCL 10 MG CAP PO SCH ×2 (07:58→20:10)
[2022-12-05] MEDS: MULTIVITAMIN TAB PO SCH (07:58)
[2022-12-05] MEDS: PANTOprazole 40 MG TAB PO SCH (07:58)
[2022-12-05] MEDS: METOPROLOL SUCC 50MG EXT REL TAB PO SCH (07:58)
[2022-12-05] MEDS: CALCIUM 600MG + VIT D 400 IU TAB PO SCH (07:58)
[2022-12-05] MEDS: APIXABAN 5 MG TABLET PO SCH ×2 (07:58→20:11)
[2022-12-05] MEDS: UMECLIDINIUM BROMIDE 62.5MCG/BLISTER 7 PUFFS/INHALER INH SCH (07:59)
[2022-12-05] MEDS: FLUTICASONE/VILANTEROL 100/25MCG 14 PUFFS/INHALER INH SCH (07:59)
[2022-12-05] MEDS: INSULIN ASPART PER UNIT SC SCH ×4 (09:09→20:11)
--- NOTE | 2022-12-05 13:30 | Hospitalist Progress Note ---
Date of Service December 05, 2022 Assessment & Plan (1) Physical deconditioning: Plan: Increasing physical debility likely due to progressing dementia At baseline, patient ambulates with a walker. Found to have become weaker at her personal group home She worked with physical therapy here and they determined she will need SNF Plan is for SNF when accepted, after peer to peer today, insurance has approved She has been accepted at [facility], bed will be available tomorrow (2) Dementia: Plan: Dementia at baseline, it seems she has been slowly declining over the past several months Now, no longer able to go back to her [facility] (3) Depression: Plan: Continue home medications Per [facility] records, she takes Fluoxetine 10mg BID, but when' depressed', she takes an additional 20mg (4) Afib: Plan: Rate is well controlled On Eliquis at home, continue. (5) Hypertension: Plan: Blood pressures under fair control Continue home medications. (6) Chronic kidney disease, stage III (moderate): Plan: Renal function at baseline Avoid nephrotoxic's (7) COPD exacerbation: Plan: Not in exacerbation Continue home medications. (8) DM w/o complication type II, uncontrolled: Plan: Blood glucose under fair control Continue insulin sliding scale Continue home medications. (9) S/P placement of cardiac pacemaker: Plan has been accepted at [facility], bed will be available tomorrow Admission and Anticipated Discharge Date Admission Date: November 25, 2022 Subjective patient seen and examined, pleasantly confused, no new complaints today, tolerating diet, has been accepted at [facility], bed will be available tomorrow Review of Systems Review of Systems: Unreliable due to confusion Physical Exam Physical Exam: The patient is awake, alert confused HEENT--PERRL, EOMI, mucous membranes and oropharynx mildly dry Neck--supple. No JVD. No bruits. Thyroid normal, trachea midline, no adenopathy. Heart--normal S1 and S2. No murmurs, rubs or gallops. Lungs--clear bilaterally, no respiratory distress, no accessory muscle use. Abdomen--normal bowel sounds and soft. Mild epigastric and left sided abdominal pain Extremities--no cyanosis or clubbing. No edema. Dermatologic--normal skin turgor, normal color, no abnormal lymph nodes, no rash. Neurologic--cranial nerves II through XII grossly intact. Rheumatologic--normal range of motion. Psychiatric--normal affect. Results & Data Results & Data ([facility]) Vital Signs (Past 12 Hours) Vital Signs Pulse Resp BP Pulse Ox O2 Del Method 12/05/22 08:06 63 17 177/90 H 95 Room Air PG Care Time/CCT Total # of Minutes Spent Total Time Spent with Patient: Total time spent is greater than 50% in coordination of care (as documented) at patient's floor/unit and/or counseling patient: Coding Level of Care Code 25339 SUB INP/OBS CARE 2/35MIN Diagnoses Physical deconditioning R53.81 Dementia F03.90 Depression F32.A Afib I48.91 Hypertension I10 Chronic kidney disease, stage III (moderate) N18.32 Chronic kidney disease stage 3 subtype: stage 3b (GFR 30-44) COPD exacerbation J44.1 DM w/o complication type II, uncontrolled E11.65 Glycemic state: with hyperglycemia S/P placement of cardiac pacemaker Z95.0 Time Spent (min) 35 (1) Chronic kidney disease, stage III (moderate) Chronic kidney disease stage 3 subtype: stage 3b (GFR 30-44) Qualified Code(s): N18.32 - Chronic kidney disease, stage 3b (2) DM 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
[2022-12-05] MEDS: LANTUS PER UNIT CHARGE SQ SCH (20:12)
[2022-12-06] MEDS: UMECLIDINIUM BROMIDE 62.5MCG/BLISTER 7 PUFFS/INHALER INH SCH (08:29)
[2022-12-06] MEDS: FLUTICASONE/VILANTEROL 100/25MCG 14 PUFFS/INHALER INH SCH (08:30)
[2022-12-06] MEDS: dilTIAZem HCL 180 MG CAPCR PO SCH (08:31)
[2022-12-06] MEDS: LOSARTAN POTASSIUM 50 MG TAB PO SCH (08:31)
[2022-12-06] MEDS: DOCUSATE SODIUM 100 MG CAP PO SCH (08:31)
[2022-12-06] MEDS: PANTOprazole 40 MG TAB PO SCH (08:32)
[2022-12-06] MEDS: METOPROLOL SUCC 50MG EXT REL TAB PO SCH (08:32)
[2022-12-06] MEDS: MULTIVITAMIN TAB PO SCH (08:33)
[2022-12-06] MEDS: ASPIRIN 81 MG ECTAB PO SCH (08:33)
[2022-12-06] MEDS: CALCIUM 600MG + VIT D 400 IU TAB PO SCH (08:33)
[2022-12-06] MEDS: ISOSORBIDE MONO EXTENDED REL 30 MG TABCR PO SCH (08:33)
[2022-12-06] MEDS: OMEGA-3 (PURIFIED FISH OIL) 1 GM CAP PO SCH (08:34)
[2022-12-06] MEDS: APIXABAN 5 MG TABLET PO SCH (08:34)
[2022-12-06] MEDS: cloNIDine HCL 0.1 MG TAB PO SCH (08:35)
[2022-12-06] MEDS: FLUoxetine HCL 10 MG CAP PO SCH (08:35)
[2022-12-06] MEDS: PSYLLIUM or GUAR GUM FIBER POWDER PACKET PO SCH (08:35)
[2022-12-06] MEDS: INSULIN ASPART PER UNIT SC SCH (09:28)
--- NOTE | 2022-12-06 09:58 | Discharge Summary ---
Date of Service December 06, 2022 Admission HPI Per Admitting Provider Is an 87-year-old [facility] personal [facility] resident with a history of dementia, atrial fibrillation, pacemaker, hypertension, COPD, CKD, type 2 diabetes, depression, who was brought from her personal [facility] on account of weakness and more confusion than usual. Most of the history was obtained from the ED doctor and also from the son at the bedside. According to sources, the staff at [facility] noticed that the patient was found standing in her bathroom more confused than usual, so they thought probably she was having another bout of UTI so they brought her to the hospital. However according to the son who was at the bedside when I evaluated her she said her mentation is now back to baseline. However when the ED physician wanted to discharge her back, and I walked her did notice she was very weak and could not ambulate very well. At baseline she ambulates with a walker, however she will be admitted to the hospital on observation for physical therapy. Also of note, patient has not been eating well for the past couple of days. Basic labs, CBC BMP within normal limits, no evidence of UTI on urinalysis. She was recently discharged from this hospital after she was admitted for pneumo yuliya early last month Discharge Data Allergies Allergy/AdvReac Type Severity Reaction Status Date / Time No Known Allergies Allergy Verified 10/27/22 19:19 Consultations 11/24/22 15:03 ED Decision to Admit Stat Ordered Studies 11/24/22 09:36 CT head/brain wo con Stat Hospital Course (1) Physical deconditioning: Increasing physical debility likely due to progressing dementia At baseline, patient ambulates with a walker. Found to have become weaker at her personal [facility] She worked with physical therapy here and they determined she will need SNF Plan is for SNF when accepted, after peer to peer today, insurance has approved She has been accepted at [facility], bed will be available tomorrow (2) Dementia: Dementia at baseline, it seems she has been slowly declining over the past several months Now, no longer able to go back to her [facility] (3) Depression: Continue home medications Per [facility] records, she takes Fluoxetine 10mg BID, but when' depressed', she takes an additional 20mg (4) Afib: Rate is well controlled On Eliquis at home, continue. (5) Hypertension: Blood pressures under fair control Continue home medications. (6) Chronic kidney disease, stage III (moderate): Renal function at baseline Avoid nephrotoxic's (7) COPD exacerbation: Not in exacerbation Continue home medications. (8) DM w/o complication type II, uncontrolled: Blood glucose under fair control Continue insulin sliding scale Continue home medications. (9) S/P placement of cardiac pacemaker: Plan has been accepted at [facility], bed will be available tomorrow Discharge Plan Discharge Items Patient Disposition: Transfer [facility] Reason For Visit: WEAKNESS, CONFUSION Discharge Diagnosis: 1. Weakness and physical deconditioning in the setting of chronic dementia 2. Confusion likely due to dementia 3. 1.6cm RLL nodule on chest x-ray - CT chest recommended 6-8 weeks to recheck this 4. Permanent a.fib on Eliquis 5. HTN 6. CKD stage 3 7. Pacemaker status 8. COPD 9. T2DM - hemoglobin a1c 6.4% in October 2022 10. Depression Condition on Discharge: Good Activity: Resume your previous activity Non-emergency contact: Primary Care Provider Call non-emergency contact if: you have any medication questions Follow-up/Referrals: Edil Kaur DO [Primary Care Provider] - Diet: Carb Consistent or DM2 Diet Texture: Easy to Chew Addtl Attending Provider Instructions: Ms Mcguire was hospitalized for weakness, mild confusion, and physical deconditioning in the setting of known dementia. She was previously residing at [facility]. PT/OT saw her while hospitalized - recommended SNF placement. Patient had significantly elevated BPs earlier in the stay - clonidine 0.1mg BID was added by previous attending physician on 11/29/22 with good response to such. CT head was negative for acute findings. Chest x-ray showed resolving pneumonic infiltrates. She was hospitalized at [facility] in early October 2022 for pneumonia. Chest x-ray demonstrated a 1.6cm nodule (vs resolving focal infiltrate) in the right lower lobe. Recommendations - 1. blood sugar checks at least twice daily - morning and HS. 2. CBC, BMP, magnesium level in 4-[address] for stability[address] chest in ~6 weeks to check the status of the RLL 1.6cm nodule seen on chest x-ray this admission. Pending Studies at Discharge: No Stand-Alone Forms: My [facility] Skilled Items Patient informed of condition?: Yes DNR: Yes Discharge Level of Care: Skilled Communicable Disease: No Discharge Prognosis: Stable Lines: None Urinary Catheter: No Medications and DC Order Prescriptions: New clonidine HCl 0.1 mg Tablet 0.1 mg PO BID Qty: 60 1RF thiamine HCl (vitamin B1) 100 mg tablet 200 mg PO BID 30 Days Qty: 120 0RF Continued Incruse Ellipta 62.5 mcg/actuation blister with device 1 inh inhalation QAM isosorbide mononitrate 30 mg tablet extended release 24 hr 30 mg PO DAILY famotidine [Pepcid] 20 mg tablet 20 mg PO DAILY PRN (Reason: gastric reflux) metoprolol succinate 100 mg tablet extended release 24 hr 100 mg PO QAM aspirin 81 mg Tablet,Delayed Release (Dr/Ec) 81 mg PO QAM calcium carbonate-vitamin D3 [Oyster Shell Calcium-Vit D3] 500 mg(1,250mg) - 200 unit Tablet 1 tab PO QAM omega 9-uqb-sid-fish oil [Fish Oil] 1,000 mg (120 mg-180 mg) Capsule 1 cap PO BID losartan 100 mg tablet 100 mg PO DAILY Eliquis 5 mg tablet 5 mg PO BID ipratropium-albuterol 0.5 mg-3 mg(2.5 mg base)/3 mL Solution For Nebulization 3 ml INHALATION QID PRN (Reason: Shortness Of Breath Or Wheezing) diltiazem HCl 180 mg capsule,extended release 24hr 180 mg PO DAILY Cranberry Plus Vitamin C 140-100 mg Capsule 1 cap PO BID nystatin-triamcinolone 100,000-0.1 unit/g-% Cream 1 applic TOPICAL BID PRN (Reason: FUNGAL RASH) docusate sodium 100 mg Capsule 100 mg PO DAILY Hemorrhoid Ointment 1 applic MO DIRECTED PRN (Reason: Hemorrhoids) insulin glargine [Lantus Solostar U-100 Insulin] 100 unit/mL (3 mL) insulin pen 10 unit SC HS fluticasone propion-salmeterol [Wixela Inhub] 250-50 mcg/dose Blister With Device 1 inh INHALATION BID menthol-zinc oxide [Calmoseptine] 0.44-20.6 % Ointment 1 applic TOPICAL DIRECTED PRN (Reason: SKIN BREAKDOWN) Metamucil 3.4 gram/5.4 gram Powder 1 tbsp PO DAILY Rx Instructions: MIX WITH 8 OZ. FLUID omeprazole 40 mg capsule,delayed release(DR/EC) 40 mg PO QAM multivitamin [Daily-Hellen] Tablet 1 tab PO DAILY fluoxetine 10 mg capsule 10 mg PO BID Rx Instructions: take along with 20mg Changed acetaminophen [Tylenol Extra Strength] 500 mg Tablet 1,000 mg PO Q6H MDD 3 GRAMS/24 HOURS PRN (Reason: Pain) Qty: 30 0RF Discontinued fluoxetine 20 mg capsule 20 mg PO BID docusate sodium 100 mg Capsule 100 mg PO DAILY PRN (Reason: Constipation) Coricidin HBP Cold and Flu 2-325 mg Tablet 1 tab PO DIRECTED PRN (Reason: COLD/FLU SYMPTOMS) Rx Instructions: DOSE PER PKG INSTRUCTIONS. Discharge Orders: Discharge Order (Routine); Ordered 12/06/22 Ordered By: Corwin Thompson Admission Data Admit Date/Time: 11/25/22 11:34 Attending Provider: Corwin Thompson Admit Provider: Marianela Baldwin Primary Care Provider: Edil Kaur Other Providers: Oskar Evans Coding Diagnoses Physical deconditioning R53.81 Dementia F03.90 Depression F32.A Afib I48.91 Hypertension I10 Chronic kidney disease, stage III (moderate) N18.32 Chronic kidney disease stage 3 subtype: stage 3b (GFR 30-44) COPD exacerbation J44.1 DM w/o complication type II, uncontrolled E11.65 Glycemic state: with hyperglycemia S/P placement of cardiac pacemaker Z95.0
== END 2022-12-06 10:17 | DRG 884 ==
LOC: 3N 09:29 → ED 09:29 → 3N 16:36 → SUATTDRO 11-25 11:34